=== PATIENT | female | born 1940 | race Caucasian/White ===

== ENCOUNTER → 2019-05-26 07:16 | Outpatient (CLI) | payer MEDICARE, OTHER, SELFPAY ==
--- NOTE | 2019-05-26 06:39 | CT_ITS ---
STUDY: CT BRAIN WITHOUT CONTRAST REASON FOR EXAM: Female, 79 years old. Every loss. Stages history of viral encephalitis RADIATION DOSAGE (If Supplied By Facility): CTDIvol = ( 44.99 ) mGy, DLP = ( 745.49 ) mGycm TECHNIQUE: Transaxial CT imaging of the brain was performed without administration of intravenous contrast material. Individualized dose optimization techniques were used for this CT. COMPARISON: No relevant priors. FINDINGS: Normal soft tissue structures. Normal calvarium. There is mild cerebral atrophy with widening of the extra-axial spaces and ventricular dilatation. There are areas of decreased attenuation within the white matter tracts of the supratentorial brain, consistent with microvascular disease changes. Normal basal ganglia and thalami. Normal brainstem. There is mild cerebellar atrophy. There is no intracranial hemorrhage. There are no findings of an acute ischemic infarction. Normal visualized paranasal sinuses. CT/Brain/Head without Contrast IMPRESSION: Mild atrophy. No evidence of acute hemorrhage infarct or edema. Electronically Signed: Nimisha Guevara MD at 18:00 EDT Tel , Service support ,
[2019-05-26 09:20] LABS: Rheumatoid Factor < 10.0 IU/mL (<15); Thyroid Stim Hormone (TSH) 5.38 uIU/mL (0.358-3.74)
[2019-05-29 10:22] LABS: Vitamin B12 449 pg/mL (211-911)
[2019-05-30 11:54] LABS: ANTINUCLEAR ANTIBODIES DIRECT Negative (Negative)
[2019-05-31 16:08] LABS: PROEL- A/G Ratio 1.2 (0.7-1.7); PROEL- Albumin 3.7 g/dL (2.9-4.4); PROEL- Alpha-1 Globulin 0.2 g/dL (0.0-0.4); PROEL- Alpha-2 Globulin 0.8 g/dL (0.4-1.0); PROEL- Beta Globulin 1.1 g/dL (0.7-1.3); PROEL- Gamma Globulin 1.1 g/dL (0.4-1.8); PROEL- Globulin, Total 3.2 g/dL (2.2-3.9); PROEL- TOTAL PROTEIN 6.9 g/dL (6.0-8.5); PROELU- Albumin, Urine 38.8 % (.); PROELU- Alpha-2-Globulin,Ur 14.7 % (.); PROELU- Beta Globulin, Ur 27.5 % (.); PROELU- Gamma Globulin, Ur 16.9 % (.); Total Protein, Ur 43.6 mg/dL (Not Estab.)
== END ==
PROVIDERS: Referring Provider Registered Nurse; Visit Provider Registered Nurse
DX: R20.2 Paresthesia of skin (principal); R73.9 Hyperglycemia, unspecified; R41.3 Other amnesia
CPT/HCPCS: 36415; 70450; 82607; 82746; 84165; 84166; 84443; 86038; 86431

== ENCOUNTER → 2021-06-05 12:19 | Outpatient (CLI) | payer MEDICARE, OTHER, SELFPAY ==
[2021-06-05 15:39] LABS: Absolute Lymphocyte Count 1.19 X10^3/uL (0.83-4.51); Absolute Neutrophil Count 3.5 X10^3/uL (2.0-7.7); Basophil% 1.9 % (0-1); Eosinophil# 0.15 X10^3/uL; Eosinophils% 2.8 % (0-5); Hematocrit 40.2 % (37-47); Hemoglobin 13.4 g/dL (12.0-15.0); Lymphocyte # 1.19 X10^3/ul (0.83-4.51); Lymphocyte % 22.2 % (19-41); Mean Corp Hgb Conc 33.3 g/dL (32-36); Mean Corpuscular Hgb 31.2 pg (27.0-32.0); Mean Corpuscular Volume 93.5 fL (81-99); Mean Platelet Vol. 9.9 fl (6.2-12.0); Monocyte# 0.41 X10^3/uL; Monocyte% 7.7 % (0-10); NRBC Flagged by Analyzer 0 % (0-5); Neutrophil # 3.47 X10^3/uL (2.7-7.7); Neutrophil % 64.8 % (47-70); Platelet Count 215 K/mm3 (150-450); RBC Distribution Width CV 12.4 % (11.6-14.6); RBC Distribution Width SD 43.1 fl (35.1-43.9); White Blood Count 5.4 K/mm3 (4.4-11.0)
[2021-06-05 16:20] LABS: Hemoglobin A1c 5.6 % (3.8-5.6)
[2021-06-05 17:01] LABS: ALB/GLOB Ratio 0.9 RATIO (0.9-2.4); AST(SGOT) 20 U/L (15-37); Alanine Aminotransfer ALT/SGPT 26 U/L (13-56); Albumin, Serum 3.4 g/dL (3.2-5.0); Alkaline Phosphatase 72 U/L (45-117); Anion Gap 3 (5-15); BUN 16 mg/dL (7-18); BUN/Creat Ratio 24.3 RATIO (10-20); CPK Total, Creatine Kinase 96 U/L (26-192); Calcium,Total 9.2 mg/dL (8.5-10.1); Chloride 103 mmol/L (98-107); Cholesterol 184 mg/dL (200); Creatinine, Serum 0.66 mg/dL (0.55-1.02); EST Glomerular Filtration Rate 92 mL/min (>60); Est Glom Filt Rate - Afr Amer 111 mL/min (>60); Ferritin 55 ng/mL (8-252); Globulin 3.8 g/dL (2.2-4.2); Glucose 81 mg/dL (74-106); High Density Lipoprotein 40 mg/dL; Magnesium 1.7 mg/dL (1.6-2.6); Potassium 3.6 mmol/L (3.5-5.1); Protein, Total 7.2 g/dL (6.4-8.2); Sodium Level 140 mmol/L (136-145); T4 Free Direct 1.19 ng/dL (0.76-1.46); Triglycerides 143 mg/dL; Very Low Density Lipoprotein 29 mg/dL (5-40)
[2021-06-05 17:12] LABS: Vitamin D,25 Hydroxy 54.8 ng/mL
== END ==
PROVIDERS: PCP Family Medicine; Referring Provider Family Medicine; Visit Provider Family Medicine
DX: E55.9 Vitamin D deficiency, unspecified (principal); I10 Essential (primary) hypertension; R73.02 Impaired glucose tolerance (oral); E04.1 Nontoxic single thyroid nodule; R25.2 Cramp and spasm
CPT/HCPCS: 36415; 80053; 80061; 82306; 82550; 82728; 83036; 83735; 84439; 84443; 85025

== ENCOUNTER → 2021-06-16 12:03 | Outpatient (CLI) | payer MEDICARE, OTHER, SELFPAY ==
--- NOTE | 2021-06-16 12:07 | US_ITS ---
STUDY: THYROID ULTRASOUND REASON FOR EXAM: Female, 81 years old. NODULE TECHNIQUE: Ultrasound evaluation of the thyroid was performed with real-time and static pineda-scale imaging. COMPARISON: None. FINDINGS: RIGHT LOBE: The right lobe of the thyroid gland measures 5 cm x 1.4 cm x 2.2 cm. There is a homogeneous echotexture. There is a 3 mm x 3 mm x 2 mm hypoechoic solid nodule in the mid anterior aspect of the midpole. LEFT LOBE: The left lobe of the thyroid gland measures 3.8 cm x 1.4 cm x 1.4 cm. There is a homogeneous echotexture. There are no demonstrated solid, cystic or complex lesions. ISTHMUS: The isthmus measures 4 mm. The regional lymph nodes are normal. US/Thyroid IMPRESSION: 3 mm x 3 mm x 2 mm hypoechoic solid nodule in the mid anterior aspect of the midpole of the right lobe of the thyroid. Electronically Signed: Pepito De Leon MD at 15:08 EDT , Service support ,
== END ==
PROVIDERS: PCP Family Medicine; Referring Provider Family Medicine; Visit Provider Family Medicine
DX: E04.1 Nontoxic single thyroid nodule (principal)
CPT/HCPCS: 76536

== ENCOUNTER 2021-11-03 11:34 | Outpatient (CLI) | payer MEDICARE, OTHER, SELFPAY ==
[2021-11-03 11:44] LABS: Mucous, Urine 0 SEEN /hpf (<or=2+)
[2021-11-03 15:24] LABS: Color, Urine Yellow (Yellow); Glucose, Dipstick Normal (Normal); Ketone-Dipstick Negative (Negative); Leukocyte Esterase-Dipstick Negative /ul (Negative); Nitrite-Dipstick Negative (Negative); Occult Blood-Urine Negative /ul (Negative); Protein-Dipstick Negative (Negative); Urine Bilirubin Dipstick Negative (Negative); Urine Clarity Clear (Clear); Urine Urobilinogen Normal (Normal)
[2021-11-03 15:33] LABS: Amorphous Sediment 1+; Bacteria 1+ /hpf (None Seen); Red Blood Cells-Urine 0-5 SEEN /hpf (0-5); Squamous Epithelial Cells - UA 0-5 SEEN /hpf (5-10); White Blood Cells 0-5 SEEN /hpf (0-5)
[2021-11-03 15:45] LABS: ALB/GLOB Ratio 0.9 RATIO (0.9-2.4); AST(SGOT) 16 U/L (15-37); Alanine Aminotransfer ALT/SGPT 26 U/L (13-56); Albumin, Serum 3.5 g/dL (3.2-5.0); Alkaline Phosphatase 82 U/L (45-117); Anion Gap 6 (5-15); BUN 18 mg/dL (7-18); BUN/Creat Ratio 23.6 RATIO (10-20); Calcium,Total 9.1 mg/dL (8.5-10.1); Chloride 103 mmol/L (98-107); Creatinine, Serum 0.76 mg/dL (0.55-1.02); EST Glomerular Filtration Rate 77 mL/min (>60); Est Glom Filt Rate - Afr Amer 94 mL/min (>60); Globulin 3.7 g/dL (2.2-4.2); Glucose 105 mg/dL (74-106); Potassium 3.4 mmol/L (3.5-5.1); Protein, Total 7.2 g/dL (6.4-8.2); Sodium Level 142 mmol/L (136-145)
[2021-11-03 15:49] LABS: Hemoglobin A1c 5.6 % (3.8-5.6)
[2021-11-03 16:45] LABS: Vitamin D,25 Hydroxy 49.5 ng/mL
[2021-11-03 17:41] LABS: Absolute Neutrophil Count 2.8 X10^3/uL (2.0-7.7); Basophil# 0.09 X10^3/uL; Eosinophil# 0.12 X10^3/uL; Eosinophils% 2.6 % (0-5); Hematocrit 40.1 % (37-47); Hemoglobin 13.8 g/dL (12.0-15.0); Lymphocyte % 22.1 % (19-41); Mean Corp Hgb Conc 34.4 g/dL (32-36); Mean Corpuscular Hgb 31.4 pg (27.0-32.0); Mean Corpuscular Volume 91.3 fL (81-99); Mean Platelet Vol. 10.5 fl (6.2-12.0); Monocyte# 0.47 X10^3/uL; Monocyte% 10.4 % (0-10); NRBC Flagged by Analyzer 0 % (0-5); Neutrophil # 2.82 X10^3/uL (2.7-7.7); Neutrophil % 62.2 % (47-70); Platelet Count 189 K/mm3 (150-450); RBC Distribution Width CV 12.1 % (11.6-14.6); RBC Distribution Width SD 40.3 fl (35.1-43.9); Red Blood Count 4.39 M/mm3 (4.2-5.4); White Blood Count 4.5 K/mm3 (4.4-11.0)
== END 2021-11-03 23:59 | disposition home or self-care (01) ==
LOC: MFPLAB 11:38
PROVIDERS: PCP Family Medicine; Referring Provider Family Medicine; Visit Provider Family Medicine
DX: E55.9 Vitamin D deficiency, unspecified (principal); I10 Essential (primary) hypertension; R73.02 Impaired glucose tolerance (oral)
CPT/HCPCS: 36415; 80053; 81001; 82306; 83036; 85025

== ENCOUNTER 2021-12-03 11:58 | Outpatient (CLI) | payer MEDICARE, OTHER, SELFPAY ==
--- NOTE | 2021-12-03 17:01 | STRESSREP ---
Stress Test Report Exercise myocardial perfusion stress test. 81-year-old lady with a history of chest pain. Stress protocol: Resting EKG demonstrates normal sinus rhythm with a rate of 84 bpm normal intervals are noted resting blood pressure is 128/82 mmHg. The patient exercised according to the regular Yovanny protocol for a total duration of 7 minutes. Patient completed 1 minute into stage III of the Yovanny protocol. The maximum heart rate attained was 164 bpm which was 117% of max impact at heart rate the maximum workload was 10.1 metabolic equivalents. At rest there were no ST or T wave changes noted to suggest ischemia and at peak exercise upsloping ST changes were noted with did not meet the criteria for ischemia. No clinical angina was noted the test was terminated due to the target heart rate being achieved. There was some shortness of breath noted with exertion but no chest pain was noted. The rate-pressure product was 23,600. The peak blood pressure was 182/64 mmHg. Conclusion: Exercise stress test with no EKG criteria for ischemia at a high workload. Good functional aerobic capacity.
== END 2021-12-03 23:59 | disposition home or self-care (01) ==
LOC: CVS 12:00
PROVIDERS: PCP Family Medicine; Referring Provider Family Medicine; Visit Provider Family Medicine
DX: R07.9 Chest pain, unspecified (principal)
CPT/HCPCS: 93017

== ENCOUNTER 2021-12-14 14:50 | Outpatient (CLI) | payer MEDICARE, OTHER, SELFPAY ==
[2021-12-14 18:13] LABS: Anion Gap 3 (5-15); BUN 14 mg/dL (7-18); BUN/Creat Ratio 21.1 RATIO (10-20); Calcium,Total 9.4 mg/dL (8.5-10.1); Chloride 98 mmol/L (98-107); Creatinine, Serum 0.66 mg/dL (0.55-1.02); EST Glomerular Filtration Rate 91 mL/min (>60); Est Glom Filt Rate - Afr Amer 110 mL/min (>60); Glucose 101 mg/dL (74-106); Potassium 3.5 mmol/L (3.5-5.1); Sodium Level 136 mmol/L (136-145)
== END 2021-12-14 23:59 | disposition home or self-care (01) ==
LOC: MFPLAB 14:53
PROVIDERS: PCP Family Medicine; Referring Provider Family Medicine; Visit Provider Family Medicine
DX: I10 Essential (primary) hypertension (principal)
CPT/HCPCS: 36415; 80048

== ENCOUNTER 2021-12-23 15:14 | Outpatient (CLI) | payer MEDICARE, OTHER, SELFPAY ==
[2021-12-23 17:47] LABS: Anion Gap 4 (5-15); BUN 16 mg/dL (7-18); BUN/Creat Ratio 21.5 RATIO (10-20); Calcium,Total 9.7 mg/dL (8.5-10.1); Chloride 103 mmol/L (98-107); Creatinine, Serum 0.74 mg/dL (0.55-1.02); EST Glomerular Filtration Rate 80 mL/min (>60); Est Glom Filt Rate - Afr Amer 96 mL/min (>60); Glucose 106 mg/dL (74-106); Potassium 3.7 mmol/L (3.5-5.1); Sodium Level 138 mmol/L (136-145)
== END 2021-12-23 23:59 | disposition home or self-care (01) ==
LOC: MFPLAB 15:18
PROVIDERS: PCP Family Medicine; Referring Provider Family Medicine; Visit Provider Family Medicine
DX: I10 Essential (primary) hypertension (principal)
CPT/HCPCS: 36415; 80048

== ENCOUNTER 2022-01-06 14:55 | Outpatient (CLI) | payer MEDICARE, OTHER, SELFPAY ==
[2022-01-06 18:09] LABS: Anion Gap 6 (5-15); BUN 12 mg/dL (7-18); BUN/Creat Ratio 17.8 RATIO (10-20); Chloride 103 mmol/L (98-107); Creatinine, Serum 0.68 mg/dL (0.55-1.02); EST Glomerular Filtration Rate 89 mL/min (>60); Est Glom Filt Rate - Afr Amer 108 mL/min (>60); Glucose 94 mg/dL (74-106); Potassium 3.8 mmol/L (3.5-5.1); Sodium Level 140 mmol/L (136-145)
== END 2022-01-06 23:59 | disposition home or self-care (01) ==
LOC: MFPLAB 14:59
PROVIDERS: PCP Family Medicine; Referring Provider Family Medicine; Visit Provider Family Medicine
DX: E87.6 Hypokalemia (principal)
CPT/HCPCS: 36415; 80048

== ENCOUNTER → 2022-01-21 | Outpatient (CLI) | payer MEDICARE, OTHER, SELFPAY | END | disposition home or self-care (01) | LOC: MFPLAB 14:44 | PROVIDERS: PCP Family Medicine; Referring Provider Family Medicine; Visit Provider Family Medicine | DX: Z00.00 Encounter for general adult medical examination without abnormal findings (principal) ==

== ENCOUNTER → 2022-04-02 | Outpatient (CLI) | payer MEDICARE, OTHER, SELFPAY ==
[2022-04-02 14:55] LABS: Bacteria 0 SEEN /hpf (None Seen); Mucous, Urine 0 SEEN /hpf (<or=2+); Squamous Epithelial Cells - UA 0 SEEN /hpf (5-10)
[2022-04-02 17:34] LABS: Basophil# 0.11 X10^3/uL; Basophil% 1.8 % (0-1); Eosinophil# 0.34 X10^3/uL; Eosinophils% 5.5 % (0-5); Hematocrit 40.3 % (37-47); Hemoglobin 13.4 g/dL (12.0-15.0); Lymphocyte % 19.3 % (19-41); Mean Corp Hgb Conc 33.3 g/dL (32-36); Mean Corpuscular Hgb 30.2 pg (27.0-32.0); Monocyte# 0.52 X10^3/uL; Monocyte% 8.4 % (0-10); NRBC Flagged by Analyzer 0 % (0-5); Neutrophil % 64.2 % (47-70); Platelet Count 189 K/mm3 (150-450); RBC Distribution Width CV 12.9 % (11.6-14.6); RBC Distribution Width SD 42.7 fl (35.1-43.9); Red Blood Count 4.43 M/mm3 (4.2-5.4); White Blood Count 6.2 K/mm3 (4.4-11.0)
[2022-04-02 17:34] LABS: Color, Urine Yellow (Yellow); Glucose, Dipstick Normal (Normal); Ketone-Dipstick Negative (Negative); Leukocyte Esterase-Dipstick 500 /ul (Negative); Nitrite-Dipstick Negative (Negative); Occult Blood-Urine 25 /ul (Negative); Protein-Dipstick 15 mg/dl (Negative); Urine Bilirubin Dipstick Negative (Negative); Urine Clarity Sl. Cloudy (Clear); Urine Urobilinogen Normal (Normal)
[2022-04-02 17:45] LABS: Red Blood Cells-Urine 0-5 SEEN /hpf (0-5); White Blood Cells 5-10 SEEN /hpf (0-5)
[2022-04-02 17:48] LABS: ALB/GLOB Ratio 0.9 RATIO (0.9-2.4); AST(SGOT) 21 U/L (15-37); Alanine Aminotransfer ALT/SGPT 24 U/L (13-56); Albumin, Serum 3.6 g/dL (3.2-5.0); Alkaline Phosphatase 97 U/L (45-117); Anion Gap 5 (5-15); BUN 16 mg/dL (7-18); BUN/Creat Ratio 23.5 RATIO (10-20); Calcium,Total 9.5 mg/dL (8.5-10.1); Chloride 101 mmol/L (98-107); Cholesterol 200 mg/dL (200); Creatinine, Serum 0.68 mg/dL (0.55-1.02); EST Glomerular Filtration Rate 88 mL/min (>60); Est Glom Filt Rate - Afr Amer 106 mL/min (>60); Globulin 4.1 g/dL (2.2-4.2); Glucose 93 mg/dL (74-106); High Density Lipoprotein 36 mg/dL; Potassium 3.4 mmol/L (3.5-5.1); Protein, Total 7.7 g/dL (6.4-8.2); Sodium Level 139 mmol/L (136-145); Triglycerides 159 mg/dL; Very Low Density Lipoprotein 32 mg/dL (5-40)
[2022-04-02 17:57] LABS: Hemoglobin A1c 5.8 % (3.8-5.6)
== END | disposition home or self-care (01) ==
LOC: MFPLAB 14:44
PROVIDERS: PCP Family Medicine; Visit Provider Family Medicine
DX: I10 Essential (primary) hypertension (principal); E55.9 Vitamin D deficiency, unspecified; R73.02 Impaired glucose tolerance (oral)
CPT/HCPCS: 36415; 80053; 80061; 81001; 82306; 83036; 85025

== ENCOUNTER → 2022-04-07 | Outpatient (CLI) | payer MEDICARE, OTHER, SELFPAY | END | disposition home or self-care (01) | PROVIDERS: PCP Family Medicine; Visit Provider Family Medicine | DX: R82.81 Pyuria (principal) | CPT/HCPCS: 87086; 87088; 87186 ==

== ENCOUNTER → 2022-04-29 | Outpatient (CLI) | payer MEDICARE, OTHER, SELFPAY ==
--- NOTE | 2022-04-29 08:38 | BD_ITS ---
STUDY: DUAL ENERGY X-RAY ABSORPTIOMETRY / DXA REASON FOR EXAM: Female, 82 years old. 733.00OsteoporosisBONE DENSITY REASON FOR EXAM TECHNIQUE: Bone Mineral Density (BMD) measurements of lumbar spine and bilateral hips were obtained. COMPARISON: None. FINDINGS: Lumbar Spine (L1-L4): g/cm2 (0.810) / T-score (-1.9) / Z-score (0.8) Findings are suggestive of osteopenia with a moderate fracture risk. Left Femur Total: g/cm2 (0.870) / T-score (-0.6) / Z-score (1.5) Left Femoral Neck: g/cm2 (0.669) / T-score (-1.6) / Z-score (0.7) Right Femur Total: g/cm2 (0.864) / T-score (-0.6) / Z-score (1.5) Right Femoral Neck: g/cm2 (0.681) / T-score (-1.5) / Z-score (0.8) BD/Dexa Bone Density Study IMPRESSION: The patient is considered osteopenic as outlined below according to World [place] Organization (WHO) criteria with a moderate fracture risk. Reference Information: The T-score is the number of standard deviations above or below the standard which is normal for young adults at their peak bone mineral density. The World Health Organization (WHO) interprets the T-scores as follows: Above -1 Normal bone density Between -1 and -2.5 Osteopenia Equal to / or below -2.5 Osteoporosis As a practical clinical guideline, osteopenia may be graded as follows: Mild -1 through -1.5 Moderate -1.6 through -2.0 Severe -2.1 through -2.4 The Z-score is the number of standard deviations above or below age-matched controls. A Z-score of less than -1.5 would be considered abnormal. References: 1. NIH Osteoporosis and Related Bone Diseases www osteo.org 2. International Society for Clinical Densitometry www iscd.org 3. National Osteoporosis Foundation www nof.org Electronically Signed: Pepito De Leon MD at 13:42 EDT ,
== END | disposition home or self-care (01) ==
LOC: OPBD 08:36
PROVIDERS: PCP Family Medicine; Referring Provider Family Medicine; Visit Provider Family Medicine
DX: M81.0 Age-related osteoporosis without current pathological fracture (principal)
CPT/HCPCS: 77080

== ENCOUNTER → 2022-07-05 | Outpatient (CLI) | payer MEDICARE, OTHER, SELFPAY ==
[2022-07-05 13:48] LABS: Bacteria 0 SEEN /hpf (None Seen); Mucous, Urine 0 SEEN /hpf (<or=2+); Red Blood Cells-Urine 0 SEEN /hpf (0-5); Squamous Epithelial Cells - UA 0 SEEN /hpf (5-10); White Blood Cells 0 SEEN /hpf (0-5)
[2022-07-05 15:40] LABS: Color, Urine Straw (Yellow); Glucose, Dipstick Normal (Normal); Ketone-Dipstick Negative (Negative); Leukocyte Esterase-Dipstick Negative /ul (Negative); Nitrite-Dipstick Negative (Negative); Occult Blood-Urine 10 /ul (Negative); Protein-Dipstick Negative (Negative); Specific Gravity, Urine 1.005 (1.002-1.030); Urine Bilirubin Dipstick Negative (Negative); Urine Clarity Clear (Clear); Urine Urobilinogen Normal (Normal)
[2022-07-05 15:43] LABS: Absolute Neutrophil Count 2.7 X10^3/uL (2.0-7.7); Basophil# 0.08 X10^3/uL; Basophil% 1.9 % (0-1); Eosinophils% 2.3 % (0-5); Hematocrit 43.3 % (37-47); Hemoglobin 14.1 g/dL (12.0-15.0); Lymphocyte % 23.5 % (19-41); Mean Corp Hgb Conc 32.6 g/dL (32-36); Mean Corpuscular Hgb 30.7 pg (27.0-32.0); Mean Corpuscular Volume 94.1 fL (81-99); Mean Platelet Vol. 10.1 fl (6.2-12.0); Monocyte# 0.37 X10^3/uL; Monocyte% 8.7 % (0-10); NRBC Flagged by Analyzer 0 % (0-5); Neutrophil # 2.69 X10^3/uL (2.7-7.7); Neutrophil % 63.1 % (47-70); Platelet Count 180 K/mm3 (150-450); RBC Distribution Width CV 12.8 % (11.6-14.6); RBC Distribution Width SD 44.3 fl (35.1-43.9); White Blood Count 4.3 K/mm3 (4.4-11.0)
[2022-07-05 16:05] LABS: Vitamin D,25 Hydroxy 37.4 ng/mL
[2022-07-05 16:16] LABS: Transitional Epithelial - Ur 0-5 SEEN /hpf (0-5)
[2022-07-05 16:48] LABS: ALB/GLOB Ratio 0.8 RATIO (0.9-2.4); AST(SGOT) 22 U/L (15-37); Alanine Aminotransfer ALT/SGPT 26 U/L (13-56); Albumin, Serum 3.5 g/dL (3.2-5.0); Alkaline Phosphatase 99 U/L (45-117); Anion Gap 8 (5-15); BUN 12 mg/dL (7-18); BUN/Creat Ratio 14.7 RATIO (10-20); Calcium,Total 9.7 mg/dL (8.5-10.1); Chloride 104 mmol/L (98-107); Creatinine, Serum 0.82 mg/dL (0.55-1.02); EST Glomerular Filtration Rate 71 mL/min (>60); Est Glom Filt Rate - Afr Amer 86 mL/min (>60); Globulin 4.2 g/dL (2.2-4.2); Glucose 114 mg/dL (74-106); Potassium 3.5 mmol/L (3.5-5.1); Protein, Total 7.7 g/dL (6.4-8.2); Sodium Level 142 mmol/L (136-145)
[2022-07-05 16:54] LABS: Hemoglobin A1c 5.6 % (3.8-5.6)
== END | disposition home or self-care (01) ==
LOC: MFPLAB 11:45
PROVIDERS: PCP Family Medicine; Visit Provider Family Medicine
DX: I10 Essential (primary) hypertension (principal); E55.9 Vitamin D deficiency, unspecified; R73.02 Impaired glucose tolerance (oral)
CPT/HCPCS: 36415; 80053; 81001; 82306; 83036; 85025

== ENCOUNTER → 2022-11-12 | Outpatient (CLI) | payer MEDICARE, OTHER, SELFPAY ==
[2022-11-12 14:17] LABS: Mucous, Urine 0 SEEN /hpf (<or=2+); Red Blood Cells-Urine 0 SEEN /hpf (0-5)
[2022-11-12 18:11] LABS: Absolute Lymphocyte Count 1.29 X10^3/uL (0.83-4.51); Absolute Neutrophil Count 3.5 X10^3/uL (2.0-7.7); Basophil% 1.8 % (0-1); Eosinophil# 0.16 X10^3/uL; Eosinophils% 2.8 % (0-5); Hematocrit 42.7 % (37-47); Hemoglobin 13.7 g/dL (12.0-15.0); Lymphocyte # 1.29 X10^3/ul (0.83-4.51); Mean Corp Hgb Conc 32.1 g/dL (32-36); Mean Corpuscular Hgb 30.4 pg (27.0-32.0); Mean Corpuscular Volume 94.7 fL (81-99); Mean Platelet Vol. 10.3 fl (6.2-12.0); Monocyte# 0.55 X10^3/uL; Monocyte% 9.8 % (0-10); NRBC Flagged by Analyzer 0 % (0-5); Neutrophil # 3.48 X10^3/uL (2.7-7.7); Neutrophil % 61.9 % (47-70); Platelet Count 192 K/mm3 (150-450); RBC Distribution Width CV 12.9 % (11.6-14.6); RBC Distribution Width SD 44.4 fl (35.1-43.9); Red Blood Count 4.51 M/mm3 (4.2-5.4); White Blood Count 5.6 K/mm3 (4.4-11.0)
[2022-11-12 18:16] LABS: Color, Urine Yellow (Yellow); Glucose, Dipstick Normal (Normal); Ketone-Dipstick Negative (Negative); Leukocyte Esterase-Dipstick 100 /ul (Negative); Nitrite-Dipstick Negative (Negative); Occult Blood-Urine 10 /ul (Negative); Protein-Dipstick Negative (Negative); Specific Gravity, Urine 1.005 (1.002-1.030); Urine Bilirubin Dipstick Negative (Negative); Urine Clarity Clear (Clear); Urine Urobilinogen Normal (Normal)
[2022-11-12 18:33] LABS: Bacteria RARE /hpf (None Seen); Squamous Epithelial Cells - UA 0-5 SEEN /hpf (5-10); White Blood Cells 0-5 SEEN /hpf (0-5)
[2022-11-12 18:40] LABS: Vitamin B12 283 pg/mL (211-911); Vitamin D,25 Hydroxy 47.4 ng/mL
[2022-11-12 18:44] LABS: Hemoglobin A1c 5.8 % (3.8-5.6)
[2022-11-12 18:47] LABS: ALB/GLOB Ratio 0.9 RATIO (0.9-2.4); AST(SGOT) 20 U/L (15-37); Alanine Aminotransfer ALT/SGPT 21 U/L (13-56); Albumin, Serum 3.6 g/dL (3.2-5.0); Alkaline Phosphatase 89 U/L (45-117); Anion Gap 7 (5-15); BUN 11 mg/dL (7-18); Chloride 102 mmol/L (98-107); Cholesterol 200 mg/dL (200); Creatinine, Serum 0.73 mg/dL (0.55-1.02); EST Glomerular Filtration Rate 81 mL/min (>60); Est Glom Filt Rate - Afr Amer 98 mL/min (>60); Globulin 3.9 g/dL (2.2-4.2); Glucose 62 mg/dL (74-106); High Density Lipoprotein 37 mg/dL; Potassium 3.3 mmol/L (3.5-5.1); Protein, Total 7.5 g/dL (6.4-8.2); Sodium Level 141 mmol/L (136-145); Thyroid Stim Hormone (TSH) 1.79 uIU/mL (0.358-3.74); Triglycerides 217 mg/dL; Very Low Density Lipoprotein 43 mg/dL (5-40)
== END | disposition home or self-care (01) ==
LOC: MFPLAB 14:07
PROVIDERS: PCP Family Medicine; Referring Provider Family Medicine; Visit Provider Family Medicine
DX: I10 Essential (primary) hypertension (principal); R73.02 Impaired glucose tolerance (oral); R41.3 Other amnesia; E55.9 Vitamin D deficiency, unspecified
CPT/HCPCS: 36415; 80053; 80061; 81001; 82306; 82607; 83036; 84443; 85025

== ENCOUNTER 2022-11-27 16:33 | Inpatient (IN) | payer MEDICARE, OTHER, SELFPAY ==
[2022-11-27] VITALS (7 sets, daily range): BP systolic 156–205; BP diastolic 79–123; PULSE 73–80; RESP 16–24; TEMP 36.3–36.8; O2SAT 94–98; BMI 28.4; BMI 29.4
--- NOTE | 2022-11-27 16:36 | EKG12_ITS ---
Test Reason : STROKE TEAM Blood Pressure : / mmHG Vent. Rate : 079 BPM Atrial Rate : 079 BPM P-R Int : 178 ms QRS Dur : 074 ms QT Int : 368 ms P-R-T Axes : 000 -10 017 degrees QTc Int : 421 ms Normal sinus rhythm Nonspecific ST and T wave abnormality Abnormal ECG Confirmed by OLYA LANDAVERDE, NANDO ([id number]), video tape editor MARYSOL IZAGUIRRE ([id number]) on 11/29/2022 2:34:39 PM Referred By: Confirmed By:NANDO DOBSON MD
--- NOTE | 2022-11-27 16:36 | CT_ITS ---
We are attempting to reach an attending provider to discuss findings. An addendum with communication details will be sent when the communication is complete. INDICATION: Neuro deficit, acute, stroke suspected EXAMINATION: CT BRAIN - CT Head Stroke Protocol W/O Contrast Injection TECHNIQUE: Multiple axial images were obtained of the head without intravenous contrast. A radiation dose optimization technique was used for this scan. IV Contrast dosage and agent: None. COMPARISON: FINDINGS: BRAIN PARENCHYMA: No intra- or extra-axial hemorrhage. No evidence of acute infarct. No intracranial mass or mass effect. There are periventricular white matter microangiopathic ischemic changes. Posterior fossa structures are unremarkable. CSF SPACES: Appropriate for age. No hydrocephalus. Basal cisterns are patent. CALVARIUM, SKULL BASE, PARANASAL SINUSES AND MASTOID AIR CELLS: Clear. No discrete lytic or blastic abnormalities. ORBITS: Both globes, extraocular muscles, optic nerves and retrobulbar fat appear unremarkable. CT/STROKE Brain/Head without Cont IMPRESSION: Age-related changes. Electronically Signed: Paul Lester DO at 17:04 EST Reading Location ID and State: [facility] / [place] Tel [phone], Service support ,
--- NOTE | 2022-11-27 16:37 | CT_ITS ---
We are attempting to reach an attending provider to discuss findings. An addendum with communication details will be sent when the communication is complete. INDICATION: Neuro deficit, acute, stroke suspected EXAMINATION: CT BRAIN WITH CONTRAST TECHNIQUE: Noncontrast axial images were obtained of the brain. Subsequently, routine carotid CT angiogram protocol was performed without and with IV contrast. In addition, images were obtained of the [place]. NASCET criteria using the distal ICAs for comparison were used for evaluation of stenoses. 3D reconstructions were reviewed. A radiation dose optimization technique was used for this scan. IV Contrast dosage and agent: COMPARISON: None. FINDINGS: --CT BRAIN: BRAIN PARENCHYMA: No intra- or extra-axial hemorrhage. No evidence of acute infarct. No intracranial mass or mass effect. There is preservation of the pineda/white matter interface. Posterior fossa structures are unremarkable. CSF SPACES: Appropriate for age. No hydrocephalus. Basal cisterns are patent. CALVARIUM, SKULL BASE, PARANASAL SINUSES AND MASTOID AIR CELLS: Clear. No discrete lytic or blastic abnormalities. ASPECTS Score for Acute Strokes: 10 --CTA NECK: AORTIC ARCH AND BRANCHES: Mildly calcified aortic arch. RIGHT CCA: No occlusion, significant stenosis or dissection. RIGHT ICA: No occlusion, significant stenosis or dissection. Focal calcification at the carotid bulb. LEFT CCA: No occlusion, significant stenosis or dissection. LEFT ICA: No occlusion, significant stenosis or dissection. Focal calcification at the carotid bulb. RIGHT VERTEBRAL ARTERY: Moderate stenosis at the proximal segment near the origin. LEFT VERTEBRAL ARTERY: No occlusion, significant stenosis or dissection. NECK SOFT TISSUES: Unremarkable. --CTA HEAD: --Anterior circulation: ICAs: No significant stenosis at the intracranial/visualized segments. ACAs: No significant stenosis at the visualized segments. ACOM: Present. MCAs: No significant stenosis at the visualized segments. --Posterior circulation: PCOMs: Patent left posterior communicating artery supplying the left posterior cerebral circulation. Nonvisualization of the right posterior commuting artery. director of social services: No significant stenosis of the right posterior cerebral artery. Nonvisualization of the left P1 segment likely a normal variation. BASILAR ARTERY: No significant stenosis. VERTEBRAL ARTERIES: No significant stenosis at the intradural/visualized segments. No evidence of intracranial aneurysm or vascular malformation. There is a right upper lobe 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 Focal atherosclerotic plaques at the carotid bulbs with no hemodynamically significant stenosis. Electronically Signed: Paul Lester DO at 17:22 EST ,
--- NOTE | 2022-11-27 16:38 | EDS_ITS ---
HPI History of Present Illness Chief Complaint: Stroke Alert Detail of Chief Complaint: Possible left facial droop and slurred speech Informant: patient and EMS Onset/Context/Timing Onset: Today and Hours Context: Sudden Onset Timing: Continuous Quality and Location: Positive for Left Facial Droop and Slurred Speech Onset: 1537. 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 Today was at an area store when they thought that she may have a left facial droop and difficulty with speech. This seems to have resolved. She denies any complaints. Prior similar symptoms: No Recent Illness/Hospitalization: No PFSH PFSH Home Medications aspirin 81 mg chewable tablet (Aspirin Childrens) 81 mg PO DAILY 11/27/22 [History Last Taken Unknown] atenolol 50 mg tablet 50 mg PO DAILY bp 11/27/22 [History Last Taken Unknown] calcium carbonate 600 mg-vitamin D3 5 mcg (200 unit) capsule (Calcium 600 + D(3)) 1 cap PO DAILY supplement 11/27/22 [History Last Taken Unknown] furosemide 20 mg tablet 20 mg PO DAILY 11/27/22 [History Last Taken Unknown] lisinopril 20 mg tablet 20 mg PO BID 11/27/22 [History Last Taken Unknown] Allergy/AdvReac Type Severity Reaction Status Date / Time amlodipine AdvReac Intermediate Other Verified 11/27/22 17:24 Social History Smoking Status: Never smoker ROS ROS ED ROS Narrative Denies recent illness. Review of Systems ROS Unobtainable: Denies due to encephalopathy Constitutional Constitutional ED: Denies fever(s) Eyes Eyes: Denies blurry vision ENT ENT ED: Denies ear pain Cardiovascular Cardiovascular: Denies chest pain Respiratory/Chest Respiratory/Chest: Denies cough or dyspnea Gastrointestinal Gastrointestinal: Denies abdominal pain Genitourinary Genitourinary ED: Denies dysuria or hematuria Musculoskeletal Musculoskeletal: Denies arthralgias Neurologic Neurologic: Denies headache(s) Psychiatric Psychiatric: Denies anxiety Endocrine Endocrinology: Denies polydipsia Hematologic/Lymphatic Hematologic/Lymphatic: Denies easy bleeding or easy bruising Allergic/Immunologic Allergic/Immunologic ED: Denies mouth swelling or urticaria EXAM Physical Exam Narrative Exam Narrative: 82-year-old female vital signs are pending. Met in the ambulance bay brought in by [facility]. Stroke team was previously called. H EENT exam. To light. Extra motions are intact. Normal speech. No facial droop. When she smiles both corners of her mouth go abnormally. Equally. Neck nontender no JVD. No lymphadenopathy. Lungs clear to auscultation bilaterally. Heart regular rhythm no murmur appreciated. Chest wall nontender. Abdomen soft nontender. Moving all 4 extremities. 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 Dorsi plantarflexion intact. There is no drift with raising her arms or legs. She is awake and alert. Answering questions and following commands. She has normal speech. NIH is 0. Const Vital Signs: 11/27/22 16:46 11/27/22 17:00 11/27/22 17:30 Temperature 97.3 F L Temperature Source Temporal Pulse Rate 80 79 79 Respiratory Rate 16 24 H 16 Blood Pressure 187/85 H 200/80 H 156/95 H Blood Pressure Mean 119 120 115 Pulse Ox 96 95 95 Oxygen Delivery Method Room Air Room Air Room Air 11/27/22 18:05 11/27/22 18:00 Temperature Temperature Source Pulse Rate 79 Respiratory Rate 16 Blood Pressure 205/102 H Blood Pressure Mean 136 Pulse Ox 97 Oxygen Delivery Method Room Air Room Air Positive well nourished and well developed; Negative for obese, cachectic, contractures or unkempt General Appearance ED: well developed and NAD; Negative for unkempt, cachectic or contractures Nutritional Appearance: Negative for cachectic or obese HEENT Reports moist mucous membranes; Denies dry mucous membranes atraumatic; Negative for trauma Nose: Negative for other Mouth ED: No dry mucous membranes Mouth: No dry mucous membranes Eyes PERRL and EOMs intact bilaterally General Eye ED: Negative for pale conjunctiva or scleral icterus Neck no lymphadenopathy, supple and no JVD General: Negative for tenderness Thyroid: Negative for other Chest Wall inspection of chest normal and palpation of chest normal Resp normal respiratory effort and clear to auscultation bilaterally Effort and Inspection: Negative for retractions Auscultation: Negative for rales, rhonchi or wheezes Cardio no murmurs Rate: regular rate Rhythm: regular rhythm Heart Sounds: Negative for S1 normal or S2 normal GI normal to inspection, nondistended, normoactive bowel sounds, soft to palpation, non-tender, non-distended and no masses Inspection: Negative for abdominal distention Auscultation: normoactive bowel sounds Palpation: Negative for tender or guarding Back/Spine no CVA tenderness General Back: Negative for CVA tenderness Cervical Spine: Negative for cervical spine tenderness Thoracic Spine / Upper Back: Negative for thoracic spinal tenderness Lumbar Spine / Lower Back: Negative for lumbar spinal tenderness Extremity normal to inspection General Extremety ED: Negative for deformity or edema General Extremity: Negative for deformity or edema Neuro oriented x3 and CN's II-XII intact bilaterally Sensorium / Orientation: alert, oriented to person, oriented to place and oriented to time; Negative for orientation impaired, confused, lethargic or stuporous Speech: speech normal Motor Exam: strength 5/5 throughout Psych mental status grossly normal Appearance: Negative for unkempt Attitude: No agitated Mood & Affect: Negative for depressed, anxious or tearful Skin no wounds General Skin Exam: Negative for jaundice Lesions: no lesions Rashes: no rashes Trauma: Negative for abrasion NIHSS NIHSS Initial: 1a Level of Consciousness: 0 1b LOC Questions (Score 2 if aphasic/stupor): 0 1c LOC Commands (Only score 1st attempt): 0 2 Best Gaze (If aphasic, use reflexive mvmts.): 0 3 Visual: 0 4 Facial Palsy: 0 5 Motor Arm Right (UN = amputation/fusion): 0 5 Motor Arm Left: 0 6 Motor Leg Right: 0 6 Motor Leg Left: 0 7 Limb ataxia (Only + if out of proportion): 0 8 Sensory (Aphasia/stupor=0 or 1, coma=2): 0 9 Best Language: 0 10 Dysarthria (mute, coma=2, intubated=UN): 0 11 Extinction and Inattention (only scored if +): 0 Total Score: 0 MDM MDM MDM Narrative Medical decision making narrative: 82-year-old brought in under stroke team. Reportedly may have had a left facial droop if she has that is now resolved. May have had slurred speech but again currently is resolved. Her NIH at this time at 4:35 PM is 0. She is awake alert. She is moving all 4 extremities. She has normal speech. She will undergo a stroke work-up. Currently I do not think she will be a candidate for clot busting medication. Repeat exam patient is doing well at 6:35 patient doing well. NIH is 0. I discussed all test results with the patient and her daughter. She will be admitted mated overnight as an observation to the hospitalist we have already discussed the patient's care with. Patient and family are comfortable with the plan. History & Record Review Discussion w/independent historian: EMS personnel and Patient Lab Data Attestation: I reviewed the patient's lab results. Lab results narrative: CBC unremarkable white count of 5.5. H&H of 13.7 and 41. Platelets 185. PT/INR PTT are normal. Electrolytes potassium is 2.9. Gap 6 normal BUN of 18 creatinine 0.9 glucose 114 troponin normal at 8. Labs: Laboratory Results - last 24 hr 11/27/22 11/27/22 11/27/22 16:25 16:25 16:25 WBC 5.5 RBC 4.48 Hgb 13.7 Hct 41.1 MCV 91.7 MCH 30.6 MCHC 33.3 RDW Std Deviation 42.9 RDW Coeff of Aurelio 12.8 Plt Count 185 MPV 10.2 Immature Gran % (Auto) 0.900 Neut % (Auto) 55.5 Lymph % (Auto) 27.1 Ogle % (Auto) 11.8 H Eos % (Auto) 2.9 Baso % (Auto) 1.8 H Absolute Neuts (auto) 3.1 Absolute Lymphs (auto) 1.50 Nucleated RBC % 0 PT 12.9 INR 1.0 APTT 33.3 Sodium 140 Potassium 2.9 L Chloride 99 Carbon Dioxide 35.0 H Anion Gap 6 BUN 18 Creatinine 0.91 Estim Creat Clear Calc 40.11 Est GFR (MDRD) Af Amer 76 Est GFR (MDRD) Non-Af 63 BUN/Creatinine Ratio 19.7 Glucose 114 H Calcium 9.2 Troponin I High Sens 8 Radiography Chest X-Ray - ED: 1 View, Read by ED Physician, Heart, Lungs, Mediastinum, Bony Structures, No Acute Disease and Chronic Changes Diagnostic Testing: Clinical Impression(s) from Imaging Studies Brain CT 11/27/22 16:36 IMPRESSION: Age-related changes. Electronically Signed: Paul Lester DO at 17:04 EST Reading Location ID and State: [facility] / [place] Tel [phone], Service support , ADDENDUM: 11/27/22 1730 IMPRESSION: Age-related changes. N.B. : The above Results were Read Back by Paul Lester DO to Brett Ge MD, and understanding confirmed on 11/27/2022 17:23:27 (ET). Electronically Signed: Paul Lester DO at 17:04 EST , Head/Neck CTA 11/27/22 16:37 IMPRESSION: Moderate stenosis at the proximal right vertebral artery. Focal atherosclerotic plaques at the carotid bulbs with no hemodynamically significant stenosis. 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 Focal atherosclerotic plaques at the carotid bulbs with no hemodynamically significant stenosis. N.B. : The above Results were Read Back by Paul Lester DO to Brett Ge MD, and understanding confirmed on 11/27/2022 17:23:32 (ET). Electronically Signed: Paul Lester DO at 17:22 EST , Chest x-ray, portable, single view interpreted by myself shows no acute abnormality. CAT scan of the brain and CTA of the head neck showed chronic age-related changes but no significant acute blockage. Rhythm Strip Rhythm Strip: Sinus Rhythm Rate: 79 Ectopy: None EKG Initial EKG: Attestation: I personally reviewed and interpreted this EKG as follows: Interpretation: Sinus Rhythm and No Acute Injury Pattern Comments: Normal sinus rhythm rate of 79 no acute signs of NM nor ischemia or dysrhythmia. Prior: Unchanged Differential Diagnosis Differential Diagnosis: Stroke versus TIA versus other etiologies. Why less likely: Patient is clinically improving I do not think this is going to end up being a stroke possibly a TIA. Versus other etiologies. Management Discussion w/another healthcare provider: Hospitalist, Sunglass Clip Attacher, Radiologist and Other (Stroke neurologist from [facility] Discharge Plan Triage Chief Complaint: Stroke Alert ED Provider: Omar Ge Dx/Rx/DC Orders Clinical Impression: Hypokalemia, Brain TIA Prescriptions: No Action lisinopril 20 mg tablet 20 mg PO BID Label Comments: TAKE 1 TABLET BY MOUTH TWICE A DAY aspirin [Aspirin Childrens] 81 mg tablet,chewable 81 mg PO DAILY Label Comments: once a day furosemide 20 mg tablet 20 mg PO DAILY Label Comments: TAKE 1 TABLET BY MOUTH EVERY DAY atenolol 50 mg tablet 50 mg PO DAILY Label Comments: TAKE 1 TABLET BY MOUTH EVERY DAY Calcium 600 + D(3) 600 mg-5 mcg (200 unit) Capsule 1 cap PO DAILY Primary Care Provider: Isai Hercules Referrals: Isai Hercules MD [Primary Care Provider] - Disposition Disposition: Acute Care Hospital [facility]
--- NOTE | 2022-11-27 17:30 | RAD_ITS ---
INDICATION: Neuro deficit, acute, stroke suspected EXAMINATION/TECHNIQUE: X-RAY - XR Chest 1 View COMPARISON: November 02, 2016 FINDINGS: LINES/DEVICES: None. LUNGS: No consolidation, edema or effusion. Interstitial prominence. Left basilar atelectasis. No pneumothorax. MEDIASTINUM AND CARDIOVASCULAR STRUCTURES: Cardiac silhouette not enlarged. Central airways and mediastinal contour are unremarkable. BONES AND SOFT TISSUES: Degenerative vertebral changes. RAD/Chest 1 View IMPRESSION: Interstitial prominence. Left basilar atelectasis. Electronically Signed: Paul Lester DO at 18:59 EST ,
[2022-11-27 17:34] LABS: Absolute Neutrophil Count 3.1 X10^3/uL (2.0-7.7); Basophil% 1.8 % (0-1); Eosinophil# 0.16 X10^3/uL; Eosinophils% 2.9 % (0-5); Hematocrit 41.1 % (37-47); Hemoglobin 13.7 g/dL (12.0-15.0); Lymphocyte % 27.1 % (19-41); Mean Corp Hgb Conc 33.3 g/dL (32-36); Mean Corpuscular Hgb 30.6 pg (27.0-32.0); Mean Corpuscular Volume 91.7 fL (81-99); Mean Platelet Vol. 10.2 fl (6.2-12.0); Monocyte# 0.65 X10^3/uL; Monocyte% 11.8 % (0-10); NRBC Flagged by Analyzer 0 % (0-5); Neutrophil # 3.07 X10^3/uL (2.7-7.7); Neutrophil % 55.5 % (47-70); Platelet Count 185 K/mm3 (150-450); RBC Distribution Width CV 12.8 % (11.6-14.6); RBC Distribution Width SD 42.9 fl (35.1-43.9); Red Blood Count 4.48 M/mm3 (4.2-5.4); White Blood Count 5.5 K/mm3 (4.4-11.0)
[2022-11-27 17:46] LABS: Prothrombin Time (Protime)PT. 12.9 SECONDS (11.7-14.9)
[2022-11-27 17:47] LABS: Partial Thromboplast Time 33.3 Seconds (24.1-36.2)
[2022-11-27 17:53] LABS: Anion Gap 6 (5-15); BUN 18 mg/dL (7-18); BUN/Creat Ratio 19.7 RATIO (10-20); Calcium,Total 9.2 mg/dL (8.5-10.1); Chloride 99 mmol/L (98-107); Creatinine, Serum 0.91 mg/dL (0.55-1.02); EST Glomerular Filtration Rate 63 mL/min (>60); Est Glom Filt Rate - Afr Amer 76 mL/min (>60); Estimated Creatinine Clearance 40.11 ml/min; Glucose 114 mg/dL (74-106); Potassium 2.9 mmol/L (3.5-5.1); Sodium Level 140 mmol/L (136-145); Troponin-I HS 8 pg/mL (3.0-54.0)
--- NOTE | 2022-11-27 19:42 | PCM.HP.STD ---
[facility] - General General Date of Admission: 11/27/22 Date of Service: 11/27/22 Chief Complaint: Left facial droop/left upper extremity paresthesias/dysarthria HPI Narrative EDWIN ERAZO, is a 82 F who presented to the emergency department at [facility] on 11/27/2022 with acute onset of left facial droop/dysarthria/left upper extremity paresthesias that started at approximately 1538 while she was shopping today. She had no associated symptoms including headache, chest pain, shortness of breath. 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 These seem to manifest more when she is tired or overworked. By the time she arrived the emergency department her symptoms had resolved. She has a history of hypertension and documented diabetes however she is not on any medication for this and her blood sugars were 114 on admission. At the time of my evaluation she was feeling fine but her blood pressure was elevated. Her daughter stated that she was due for some of her medications. Vital signs at presentation demonstrated temperature of 97.3, heart rate 80, blood pressure 187/85, respiratory rate 16, oxygen saturations 96% on room air. Her CBC is unremarkable. Her coags are normal. Her BMP shows an elevated serum bicarb at 35.0 which makes me question whether or not she has may be some underlying sleep apnea or contraction alkalosis and her potassium is 2.9. Of her brain only showed senescent changes. A CTA of her head and neck showed moderate stenosis at the right proximal vertebral artery with focal atherosclerotic plaques at the carotid bulb with no hemodynamically significant stenosis. EKG showed normal sinus rhythm with a first-degree heart block and no ST-T wave changes concerning for acute ischemia. Chest x-ray is unremarkable. [facility] Medical History Anxiety Depression Encephalitis HTN (hypertension) Insomnia Osteoporosis Uterine prolapse Home Medications aspirin 81 mg chewable tablet (Aspirin Childrens) 81 mg PO DAILY 11/27/22 [History Last Taken Unknown] atenolol 50 mg tablet 50 mg PO DAILY bp 11/27/22 [History Last Taken Unknown] calcium carbonate 600 mg-vitamin D3 5 mcg (200 unit) capsule (Calcium 600 + D(3)) 1 cap PO DAILY supplement 11/27/22 [History Last Taken Unknown] furosemide 20 mg tablet 20 mg PO DAILY 11/27/22 [History Last Taken Unknown] lisinopril 20 mg tablet 20 mg PO BID 11/27/22 [History Last Taken Unknown] Allergy/AdvReac Type Severity Reaction Status Date / Time amlodipine AdvReac Intermediate Other Verified 11/27/22 17:24 Family History (Updated 11/27/22 @ 19:[address] Violetta Meneses DO) Other Diabetes Hypertension no surgical history Social History (Updated 11/27/22 @ 19:[address] Violetta Meneses DO) Smoking Status: Never smoker alcohol intake: never substance use type: does not use ROS Constitutional Constitutional: Denies anorexia, change in weight, chills, fatigue, fever(s), malaise, night sweats, weakness or other Eyes Eyes: Denies blurry vision, change in eye color, change in vision, discharge from eye(s), double vision, erythema, eye pain, loss of vision or other ENT HEENT: Denies abnormal hearing, dysphagia, ear pain, epistaxis, headache(s), hearing loss, nasal congestion, nasal discharge, post nasal drip, sinus pressure, sore throat or other Cardiovascular Cardiovascular: Denies chest pain, claudication, dyspnea on exertion, edema, lightheadedness, orthopnea, palpitations, paroxysmal nocturnal dyspnea, rapid heart rate, syncope or other Respiratory/Chest Respiratory/Chest: Denies cough, dyspnea, excessive phlegm production, hemoptysis, productive cough, shortness of breath at rest, shortness of breath with exertion, wheezing or other Gastrointestinal Gastrointestinal: Denies abdominal pain, coffee ground emesis, constipation, diarrhea, dyspepsia, hematemesis, hematochezia, loose stools, melena, nausea, vomiting or other Genitourinary Genitourinary: Denies burning urination, difficulty urinating, dysuria, hematuria, nocturia, urinary frequency, urinary hesitancy, urinary incontinence, urinary urgency or other Musculoskeletal Musculoskeletal: Denies arthralgias, back pain, joint pain, joint stiffness, joint swelling, myalgias, neck pain or other Neurologic Neurologic: Reports abnormal speech, paresthesias, tingling and other Details: Left facial droop ; Denies abnormal gait, confusion, disequilibrium, dizziness, focal weakness, headache(s), numbness, seizure-like activity, seizures, syncope or tremor(s) Psychiatric Psychiatric: Denies anxiety, depression, homicidal ideation, suicidal ideation or other Endocrine Endocrinology: Denies change in body appearance, cold intolerance, excessive sweating, heat intolerance, polydipsia, polyuria or other Hematologic/Lymphatic Hematologic/Lymphatic: Denies anemia, easy bleeding, easy bruising, lymphadenopathy or other Allergic/Immunologic Allergic/Immunologic: Denies rhinitis, hives, eczemia, asthma or other Vital Signs Vital Signs Vital Signs: 11/27/22 16:46 11/27/22 17:00 11/27/22 17:30 Temperature 97.3 F L Temperature Source Temporal Pulse Rate 80 79 79 Respiratory Rate 16 24 H 16 Blood Pressure 187/85 H 200/80 H 156/95 H Blood Pressure Mean 119 120 115 Pulse Ox 96 95 95 Oxygen Delivery Method Room Air Room Air Room Air 11/27/22 18:05 11/27/22 18:00 11/27/22 18:30 Temperature Temperature Source Pulse Rate 79 73 Respiratory Rate 16 16 Blood Pressure 205/102 H 173/123 H Blood Pressure Mean 136 139 Pulse Ox 97 96 Oxygen Delivery Method Room Air Room Air Room Air 11/27/22 18:30 Temperature 98.3 F Temperature Source Temporal Pulse Rate 73 Respiratory Rate 16 Blood Pressure 173/123 H Blood Pressure Mean 139 Pulse Ox 96 Oxygen Delivery Method Room Air Weight Weight: 72.8 kg Body Mass Index (BMI) 28.4 Physical Exam Const alert, oriented x3, no apparent distress, healthy appearing and well nourished Constitutional Narrative: Overweight, elderly white female, sitting up in bed, daughter at bedside, appears comfortable nontoxic, per her daughter her speech is back to baseline, patient is very talkative General Appearance: cooperative HEENT normocephalic, head/scalp atraumatic, hearing grossly normal bilaterally and moist oral mucous membranes HEENT Narrative: Dentition is fair, Mallampati is 2, no thrush Eyes PERRL, EOMs intact bilaterally and conjunctivae normal Eyes Narrative: No scleral icterus Neck no lymphadenopathy, supple, no JVD and no carotid bruits Neck Narrative: Trachea midline, no thyroid in the Resp normal respiratory effort, no retractions, no use of accessory muscles and clear to auscultation bilaterally Auscultation: Negative for rales, rhonchi or wheezes Cardio regular rate, regular rhythm, S1 normal heart sound, S2 normal heart sound, no murmurs, no rub and no clicks; Negative for no gallops Cardio Narrative: S4 gallop is present GI normal to inspection, nondistended, normoactive bowel sounds, soft to palpation and non-tender Extremity no clubbing, cyanosis or edema Extremity Narrative: 2+ pedal pulses Skin no rashes or lesions noted, no wounds, skin turgor normal, no jaundice, no petechiae and no mottling Neuro oriented x3, CN's II-XII intact bilaterally, moves all extremities and no focal motor deficits Neuro Narrative: Reflexes are 2+ upper and lower extremities, no pronator drift, very mild generalized weakness proximal greater than distal Speech: speech normal Psych affect normal Mood & Affect: anxious Results Lab / Micro Data Result Diagrams: 11/27/22 16:25 11/27/22 16:25 Labs: Laboratory Results - last 24 hr 11/27/22 16:25: WBC 5.5, RBC 4.48, Hgb 13.7, Hct 41.1, MCV 91.7, MCH 30.6, MCHC 33.3, RDW Std Deviation 42.9, RDW Coeff of Aurelio 12.8, Plt Count 185, MPV 10.2, Immature Gran % (Auto) 0.900, Neut % (Auto) 55.5, Lymph % (Auto) 27.1, Roane % (Auto) 11.8 H, Eos % (Auto) 2.9, Baso % (Auto) 1.8 H, Absolute Neuts (auto) 3.1, Absolute Lymphs (auto) 1.50, Nucleated RBC % 0 11/27/22 16:25: PT 12.9, INR 1.0, APTT 33.3 11/27/22 16:25: Sodium 140, Potassium 2.9 L, Chloride 99, Carbon Dioxide 35.0 H, Anion Gap 6, BUN 18, Creatinine 0.91, Estim Creat Clear Calc 40.11, Est GFR (MDRD) Af Amer 76, Est GFR (MDRD) Non-Af 63, BUN/Creatinine Ratio 19.7, Glucose 114 H, Calcium 9.2, Troponin I High Sens 8 Rhythm Strip Rhythm Strip: Sinus Rhythm Rate: 79 Ectopy: None Radiology Impression Brain CT 11/27/22 16:36 IMPRESSION: Age-related changes. Electronically Signed: Paul Lester DO at 17:04 EST , ADDENDUM: 11/27/22 1730 IMPRESSION: Age-related changes. N.B. : The above Results were Read Back by Paul Lester DO to Brett Ge MD, and understanding confirmed on 11/27/2022 17:23:27 (ET). Electronically Signed: Paul Lester DO at 17:04 EST , Head/Neck CTA 11/27/22 16:37 IMPRESSION: Moderate stenosis at the proximal right vertebral artery. Focal atherosclerotic plaques at the carotid bulbs with no hemodynamically significant stenosis. 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 Focal atherosclerotic plaques at the carotid bulbs with no hemodynamically significant stenosis. N.B. : The above Results were Read Back by Paul Lester DO to Brett Ge MD, and understanding confirmed on 11/27/2022 17:23:32 (ET). Electronically Signed: Paul Lester DO at 17:22 EST , Chest X-Ray 11/27/22 17:30 IMPRESSION: Interstitial prominence. Left basilar atelectasis. Electronically Signed: Paul Lester DO at 18:59 EST , Assessment & Plan Assessment/Plan (1) Facial droop: (2) Dysarthria: (3) Paresthesia of left upper extremity: (4) Hypokalemia: PLAN: Plan Left facial droop/dysarthria/left upper extremity paresthesias -Need to rule out TIA/stroke -CT of the brain is unremarkable other than age-related changes -CTA of the head and neck shows moderate stenosis at the proximal right vertebral artery and focal atherosclerotic plaques of the carotid bulbs with no hemodynamically significant stenosis -Check MRI brain -Echocardiogram -Continue home aspirin -Start Plavix 75 mg -Start atorvastatin 80 mg -Check lipids -Check hemoglobin A1c -NIH is currently 0 -PT/OT consultation Hypokalemia -P.o. potassium replacement with 60 mill equivalents -Recheck BMP in a.m. -Check a.m. magnesium level Elevated blood pressure with history of hypertension -Blood pressures were remarkably elevated in the emergency department -Continue home oral medications (lisinopril 20 mg p.o. twice daily/atenolol 50 mg daily/Lasix 20 mg daily) -As needed IV medications available -Monitor History of viral encephalitis -In 2017 -Daughter report that sometimes when she gets tired she does get some residual symptoms from that History of migraine headaches -Patient not with any current issues -No headache present prior to the above episode DM-2 -Patient's not on any agents for this -We will check hemoglobin A1c -Blood sugar on admission was normal Osteoporosis -Continue calcium vitamin D supplementation DVT prophylaxis -Lovenox CODE STATUS -Full code Charges/Coding Visit Charges Inpatient E&M: 50894 Init Hosp L3
[2022-11-27] MEDS: Potassium Chloride Oral Tablet 20 MEQ 60 MEQ PO (20:55)
[2022-11-27] MEDS: Atorvastatin Calcium 80 MG Tablet PO (20:55)
[2022-11-27] MEDS: Lisinopril 20 MG Tablet PO (20:55)
[2022-11-27 21:03] LABS: Hemoglobin A1c 5.5 % (3.8-5.6)
[2022-11-27] MEDS: Acetaminophen 325 MG Tablet 650 MG PO (21:30)
[2022-11-28] VITALS (11 sets, daily range): BP systolic 149–192; BP diastolic 74–94; PULSE 76–92; RESP 16–20; TEMP 36.4–37.1; O2SAT 79–98; BMI 29.4
[2022-11-28 07:00] LABS: Absolute Lymphocyte Count 0.86 X10^3/uL (0.83-4.51); Absolute Neutrophil Count 2.9 X10^3/uL (2.0-7.7); Basophil# 0.07 X10^3/uL; Basophil% 1.6 % (0-1); Eosinophil# 0.17 X10^3/uL; Eosinophils% 3.8 % (0-5); Hematocrit 38.9 % (37-47); Hemoglobin 12.8 g/dL (12.0-15.0); Lymphocyte # 0.86 X10^3/ul (0.83-4.51); Lymphocyte % 19.3 % (19-41); Mean Corp Hgb Conc 32.9 g/dL (32-36); Mean Corpuscular Hgb 30.3 pg (27.0-32.0); Mean Corpuscular Volume 92.2 fL (81-99); Mean Platelet Vol. 9.7 fl (6.2-12.0); Monocyte# 0.46 X10^3/uL; Monocyte% 10.3 % (0-10); NRBC Flagged by Analyzer 0 % (0-5); Neutrophil # 2.87 X10^3/uL (2.7-7.7); Neutrophil % 64.3 % (47-70); Platelet Count 149 K/mm3 (150-450); RBC Distribution Width SD 43.4 fl (35.1-43.9); Red Blood Count 4.22 M/mm3 (4.2-5.4); White Blood Count 4.5 K/mm3 (4.4-11.0)
[2022-11-28 07:36] LABS: Phosphorus 3.5 mg/dL (2.5-4.9)
[2022-11-28 07:56] LABS: ALB/GLOB Ratio 0.9 RATIO (0.9-2.4); AST(SGOT) 17 U/L (15-37); Alanine Aminotransfer ALT/SGPT 20 U/L (13-56); Alkaline Phosphatase 79 U/L (45-117); Anion Gap 9 (5-15); BUN 16 mg/dL (7-18); BUN/Creat Ratio 23.2 RATIO (10-20); Calcium,Total 8.5 mg/dL (8.5-10.1); Chloride 109 mmol/L (98-107); Cholesterol 184 mg/dL (200); Creatinine, Serum 0.69 mg/dL (0.55-1.02); EST Glomerular Filtration Rate 87 mL/min (>60); Est Glom Filt Rate - Afr Amer 105 mL/min (>60); Estimated Creatinine Clearance 31.69 ml/min; Globulin 3.5 g/dL (2.2-4.2); Glucose 117 mg/dL (74-106); High Density Lipoprotein 31 mg/dL; Magnesium 2.2 mg/dL (1.6-2.6); Potassium 3.9 mmol/L (3.5-5.1); Protein, Total 6.5 g/dL (6.4-8.2); Sodium Level 144 mmol/L (136-145); Thyroid Stim Hormone (TSH) 1.71 uIU/mL (0.358-3.74); Triglycerides 128 mg/dL; Very Low Density Lipoprotein 26 mg/dL (5-40)
--- NOTE | 2022-11-28 08:17 | OT ---
Verbal explanation to patient about expected functional level of stroke, movement quality and patterns and beginning for AROM and functional use of L side involvement. pt verbalizes understanding
--- NOTE | 2022-11-28 08:19 | PT ---
DISCUSSED PT PLAN OF CARE WITH PATIENT, PT. DEMONSTRATES SOME INCREASED RISK FOR FALLS, WHILE PT IS IN HOSPITAL PT WILL INCLUDE GAIT TRAINING AND POSSIBLY USE OF STRAIGHT CANE DUE TO SWAY DEMONSTRATED DURING EVAL TODAY
--- NOTE | 2022-11-28 10:00 | MRI_ITS ---
HISTORY: TIA/Stroke. TECHNIQUE: Multiplanar and multisequence MR images of the brain were obtained without contrast. 278 images. COMPARISON: CT prior day. FINDINGS: BRAIN PARENCHYMA: Two small foci of restricted diffusion in the right frontoparietal cortex. Small focus of restricted diffusion in the left temporal cortex. Small chronic right occipital infarct. Moderate foci and zones of increased T2 FLAIR signal in the bilateral cerebral white matter. No acute intracranial hemorrhage identified. CSF SPACES: Generalized volume loss. No significant midline shift or other mass effect.No extra-axial fluid collection. VASCULAR SYSTEM: Major intracranial flow voids are maintained. PARANASAL SINUSES AND MASTOID AIR CELLS: No significant air fluid levels. ORBITS: Bilateral lens resections. MRI/Brain without Contrast IMPRESSION: Small acute right frontoparietal and left temporal infarcts, likely embolic in origin. Chronic involutional and white matter changes. Chronic right occipital infarct. Electronically Signed: Meagan Michael MD at 11:02 EST ,
[2022-11-28] MEDS: Furosemide 20 MG Tablet PO (10:59)
[2022-11-28] MEDS: Lisinopril 20 MG Tablet PO ×2 (10:59→20:21)
[2022-11-28] MEDS: Atenolol 50 MG Tablet PO (10:59)
[2022-11-28] MEDS: Clopidogrel Bisulfate 75 MG Tablet PO (10:59)
[2022-11-28] MEDS: Aspirin 81 MG TAB.CHEW PO (10:59)
[2022-11-28] MEDS: Enoxaparin 40 MG/0.4 ML Syringe SC (10:59)
--- NOTE | 2022-11-28 11:53 | ECHOD_ITS ---
Reason For Study: TIA/CVA Procedure This was a 2D Doppler, Color Flow transthoracic echocardiogram. Exam performed portable in patient room. Left Ventricle Normal LV size. Left ventricular systolic function is normal. The estimated ejection fraction is 65 %. Stage 1 diastolic dysfunction. No regional wall motion abnormalities noted. Right Ventricle Normal RV size. Normal systolic function. Atria The left atrium is moderately enlarged. Normal right atrium. Bubble contrast study negative for right to left interatrial shunt. Mitral Valve Normal mitral valve. Tricuspid Valve Normal tricuspid valve. Mild tricuspid valve insufficiency. Pulmonary artery systolic pressure is 40 mmHg. Aortic Valve Trisinus/trileaflet aortic valve. Mild (1+) aortic valve insufficiency. Pulmonic Valve Normal pulmonic valve. Great Vessels Normal aortic root. The pulmonary artery is normal size. Normal inferior vena cava. Pericardium/Pleural No pericardial effusion. Medication Performed a rapid injection of agitated mix of 9 cc saline and 1cc air to assess for atrial septal defect. MMode/2D Measurements & Calculations LVIDd: 4.3 cm IVSd: 1.2 cm Ao root diam: 3.2 cm LVIDs: 2.3 cm LVPWd: 0.83 cm RVDd: 2.6 cm FS: 45.1 % LAV(MOD-sp4): 89.8 ml LVAd ap4: 26.2 cm2 SV(MOD-sp4): 46.5 ml LVLd ap4: 7.4 cm EDV(MOD-sp4): 72.8 ml EDV(sp4-el): 79.1 ml LVAs ap4: 13.3 cm2 LVLs ap4: 5.6 cm ESV(MOD-sp4): 26.4 ml ESV(sp4-el): 26.9 ml EF(MOD-sp4): 63.8 % EF(sp4-el): 65.9 % SV(sp4-el): 52.1 ml LA A4 area: 25.9 cm2 LA dimension(2D): 4.2 cm RA A4 area: 13.9 cm2 Time Measurements MV dec time: 0.24 sec Doppler Measurements & Calculations MV E max wei: 81.9 cm/sec Lat Peak E' Wei: 7.9 cm/sec Med Peak E' Wei: 6.6 cm/sec MV A max wei: 115.8 cm/sec E/E' lat: 10.3 E/E' med: 12.5 MV E/A: 0.71 MV V2 max: 91.4 cm/sec MV dec slope: 341.2 cm/sec2 Ao V2 max: 133.8 cm/sec MV max P.4 mmHg Ao max P.2 mmHg MV V2 mean: 61.0 cm/sec Ao V2 mean: 95.1 cm/sec MV mean P.7 mmHg Ao mean P.1 mmHg MV V2 VTI: 25.4 cm Ao V2 VTI: 28.3 cm AV (velocity ratio): 0.96 AI max wei: 393.5 cm/sec LV V1 max: 129.0 cm/sec TR max wei: 300.6 cm/sec AI max P.0 mmHg LV V1 max P.7 mmHg TR max P.2 mmHg AI dec slope: 259.9 cm/sec2 LV V1 mean P.7 mmHg AI P1/2t: 443.5 msec LV V1 mean: 89.9 cm/sec LV V1 VTI: 27.1 cm ECHO/Echo Complete Interpretation Summary Normal LV size. Left ventricular systolic function is normal. The estimated ejection fraction is 65 %. The left atrium is moderately enlarged. Stage 1 diastolic dysfunction. Bubble contrast study negative for right to left interatrial shunt. Mild (1+) aortic valve insufficiency. Pulmonary artery systolic pressure is 40 mmHg. Ordering Physician: Dustin Rodríguez Referring Physician: Isai Hercules Performed By: Caroline Leo RCS
--- NOTE | 2022-11-28 18:27 | PCM.PN.HOSP ---
Reason for Visit Reason for Visit: Diagnoses Hypokalemia (11/28/22) Paresthesia of skin (11/28/22) Facial weakness (11/28/22) Dysarthria and anarthria (11/28/22) Subjective Subjective Patient was seen and examined today, I talked at length with the patient and her daughter who was in the room at the time my examination. Patient had two strokes on the MRI today-a small acute right frontal parietal and left temporal infarct-these are likely embolic in origin. I with through the treatment plan with the patient and the patient's daughter, I told her she would be on aspirin and Plavix for 21 days and also be placed on Lipitor, I lowered the dose of Lipitor to make sure the patient was able to tolerate it. I also told her she would need to be set up for 30-day Holter monitor at the time of discharge from the hospital to rule out any possibility she is going in and out of A-fib. Patient had a past history of a stroke before-on the MRI there is noted to be a chronic right occipital infarct present. Patient's blood pressure has been high this afternoon, I have added Cardizem CD to her medications, she states she cannot take Norvasc due to severe swelling with Norvasc. Patient is already on lisinopril and atenolol as well as Lasix, she had very low potassium when she was on chlorthalidone and that is why she is taking Lasix. Objective Data Objective Data Vital Signs: Vital Signs Temp Pulse Resp BP Pulse Ox O2 Del Method O2 Flow Rate 98.1 F 82 16 192/142 H 98 Room Air 2 11/28/22 18:00 11/28/22 18:00 11/28/22 18:00 11/28/22 18:00 11/28/22 18:00 11/28/22 18:00 11/28/22 04:15 Oxygen Flow Rate (L/min) 2 Oxygen Delivery Method Room Air Weight: 68.4 kg Body Mass Index (BMI) 29.4 Intake & Output: Intake and Output for Last 24 Hours 11/26/22 11/27/22 11/28/22 23:59 23:59 23:59 Intake Total 240 / 240 960 / 960 Balance 240 / 240 960 / 960 Lab / Micro Data Result Diagrams: 11/28/22 06:32 11/28/22 06:32 Labs: Laboratory Results - last 24 hr 11/27/22 16:25: Hemoglobin A1c 5.5 11/28/22 06:32: WBC 4.5, RBC 4.22, Hgb 12.8, Hct 38.9, MCV 92.2, MCH 30.3, MCHC 32.9, RDW Std Deviation 43.4, RDW Coeff of Aurelio 13.0, Plt Count 149 L, MPV 9.7, Immature Gran % (Auto) 0.700, Neut % (Auto) 64.3, Lymph % (Auto) 19.3, Mccormick % (Auto) 10.3 H, Eos % (Auto) 3.8, Baso % (Auto) 1.6 H, Absolute Neuts (auto) 2.9, Absolute Lymphs (auto) 0.86, Nucleated RBC % 0 11/28/22 06:32: Sodium 144, Potassium 3.9, Chloride 109 H, Carbon Dioxide 26.0, Anion Gap 9, BUN 16, Creatinine 0.69, Estim Creat Clear Calc 31.69, Est GFR (MDRD) Af Amer 105, Est GFR (MDRD) Non-Af 87, BUN/Creatinine Ratio 23.2 H, Glucose 117 H, Calcium 8.5, Magnesium 2.2, Total Bilirubin 0.50, AST 17, ALT 20, Alkaline Phosphatase 79, Total Protein 6.5, Albumin 3.0 L, Globulin 3.5, Albumin/Globulin Ratio 0.9, Triglycerides 128, Cholesterol 184, LDL Cholesterol 127, VLDL Cholesterol 26, HDL Cholesterol 31 L, TSH 1.71 11/28/22 06:32: Phosphorus 3.5 Radiography Diagnostic Testing: Radiology Impression Chest X-Ray 11/27/22 17:30 IMPRESSION: Interstitial prominence. Left basilar atelectasis. Electronically Signed: Paul Lester DO at 18:59 EST Reading Location ID and State: [facility] / [place] Tel [phone], Service support , Brain MRI 11/28/22 10:00 IMPRESSION: Small acute right frontoparietal and left temporal infarcts, likely embolic in origin. Chronic involutional and white matter changes. Chronic right occipital infarct. Electronically Signed: Meagan Michael MD at 11:02 EST , Rhythm Strip Rhythm Strip: Sinus Rhythm Rate: 79 Ectopy: None Physical Exam Const alert, oriented x3, no apparent distress, average body habitus and healthy appearing General Appearance: cooperative, well kempt and well developed Orientation / Consciousness: awake, oriented to person, oriented to place and oriented to time HEENT normocephalic, head/scalp atraumatic and moist oral mucous membranes HEENT Narrative: Patient has some slight left mouth drooping Head and Scalp: normocephalic Eyes PERRL, EOMs intact bilaterally and conjunctivae normal Neck supple, no JVD and thyroid normal General: trachea midline Resp normal respiratory effort, no retractions, no use of accessory muscles and clear to auscultation bilaterally Auscultation: Negative for rales, rhonchi or wheezes Cardio regular rate, regular rhythm, S1 normal heart sound, S2 normal heart sound, no murmurs, no rub and no gallops GI normal to inspection, nondistended, normoactive bowel sounds, soft to palpation, non-tender and non-distended Extremity no clubbing, cyanosis or edema Skin no rashes or lesions noted General Skin Exam: no breakdown Neuro oriented x3, CN's II-XII intact bilaterally, moves all extremities, no focal motor deficits and no sensory deficits noted Sensorium / Orientation: awake and alert Speech: speech normal Psych affect normal Assessment & Plan Assessment/Plan (1) Paresthesia of left upper extremity: PLAN: Plan 1. Acute right frontal parietal and left temporal infarcts-felt to be secondary to embolic phenomenon, again patient was placed on Plavix and aspirin, echocardiogram will be performed tomorrow, patient is also on a statin, she will need set up for 30-day event monitor at the time of discharge from the hospital. #2 essential hypertension-under poor control, I added Cardizem CD to patient's medication might, blood pressure will be monitored. #3 history of cerebrovascular disease-patient had a chronic right occipital infarct noted on the MRI, she takes a daily baby aspirin a day at home Further note: According to the patient's daughter, patient had a past history of viral meningitis and at times cannot remember instructions, I told her that everything would be written out and it was a good thing with the daughter was in the room today so I could explain the patient's medical course to her. Patient lives across the [address] from her daughter. Total clinical time spent by myself addressing the patient's medical issues, reviewing all of the data, and collaborating with patient's care team: 50 minutes Charges/Coding Visit Charges Inpatient E&M: 06791 [facility] L3
[2022-11-28] MEDS: dilTIAZem CD 180 MG Capsule PO (18:50)
[2022-11-28] MEDS: Temazepam 15 MG Capsule PO (20:20)
[2022-11-28] MEDS: Atorvastatin Calcium 40 MG Tablet PO (20:21)
[2022-11-29 03:30] VITALS: BP 172/68; PULSE 86; RESP 20; TEMP 36.4; O2SAT 97
[2022-11-29] MEDS: Acetaminophen 325 MG Tablet 650 MG PO (03:53)
[2022-11-29 07:30] VITALS: BP 182/72; PULSE 79; RESP 18; TEMP 36.8; O2SAT 92; O2SAT 98
--- NOTE | 2022-11-29 08:16 | PCM.PN.HOSP ---
Reason for Visit Reason for Visit: Diagnoses Hypokalemia (11/28/22) Paresthesia of skin (11/28/22) Facial weakness (11/28/22) Dysarthria and anarthria (11/28/22) Objective Data Objective Data Vital Signs: Vital Signs Temp Pulse Resp BP Pulse Ox O2 Del Method O2 Flow Rate 97.5 F L 86 20 H 172/68 H 92 Room Air 2 11/29/22 03:30 11/29/22 03:30 11/29/22 03:30 11/29/22 03:30 11/29/22 07:30 11/29/22 07:30 11/28/22 04:15 Oxygen Flow Rate (L/min) 2 Oxygen Delivery Method Room Air Weight: 150 lb 12.739 oz Body Mass Index (BMI) 29.4 Intake & Output: Intake and Output for Last 24 Hours 11/27/22 11/28/22 11/29/22 23:59 23:59 23:59 Intake Total 240 / 240 960 / 1260 300 / 300 Balance 240 / 240 960 / 1260 300 / 300 Lab / Micro Data Result Diagrams: 11/28/22 06:32 11/28/22 06:32 Radiography Diagnostic Testing: Radiology Impression Brain MRI 11/28/22 10:00 IMPRESSION: Small acute right frontoparietal and left temporal infarcts, likely embolic in origin. Chronic involutional and white matter changes. Chronic right occipital infarct. Electronically Signed: Meagan Michael MD at 11:02 EST Reading Location ID and State: [facility] / [place] Tel , Service support , Rhythm Strip Rhythm Strip: Sinus Rhythm Rate: 79 Ectopy: None Assessment & Plan Assessment/Plan (1) Paresthesia of left upper extremity: PLAN: Plan 1. Acute right frontal parietal and left temporal infarcts-felt to be secondary to embolic phenomenon, again patient was placed on Plavix and aspirin, echocardiogram will be performed tomorrow, patient is also on a statin, she will need set up for 30-day event monitor at the time of discharge from the hospital. #2 essential hypertension-under poor control, I added Cardizem CD to patient's medication might, blood pressure will be monitored. #3 history of cerebrovascular disease-patient had a chronic right occipital infarct noted on the MRI, she takes a daily baby aspirin a day at home Further note: According to the patient's daughter, patient had a past history of viral meningitis and at times cannot remember instructions, I told her that everything would be written out and it was a good thing with the daughter was in the room today so I could explain the patient's medical course to her. Patient lives across the street from her daughter. Total clinical time spent by myself addressing the patient's medical issues, reviewing all of the data, and collaborating with patient's care team: 50 minutes
--- NOTE | 2022-11-29 08:17 | DCINST_ITS ---
Discharge Instructions Diet Discharge Diet: Low fat / Low cholesterol and 2000 mg Sodium Diet Activity Discharge Activity: Return to Normal Activity Weight Bearing Status: Weight bearing as tolerated Dressing / Incision Call your doctor if you observe: Fever of 101 or Higher, Coldness, Increased Pain, Numbness or Tingling, Change in Color, Inability to urinate, Inability to have a bowel movement, Using more than 1 pad per hour, Shortness of breath, Dizziness, Fainting spells, Swelling in the ankles, Chest pain, Prolonged hiccupping, Increased palpitations (irregular heartbeat) and Calf discomfort Follow Up Care When: IN 2 WEEKS Test Results: Test results from this visit will be discussed in further detail at your follow- up appointment, if applicable. Discharge Plan Admission Admit Date/Time: 11/28/22 15:13 Primary Reason for Your Visit: Stroke Attending Provider: Loyd Montero Primary Care Provider: Isai Hercules Consulting Providers: Violetta Meneses ; Dustin Rodríguez Discharge Orders/Prescriptions Prescriptions: New sennosides-docusate sodium [Stool Softener-Stimulant Laxat] 8.6-50 mg Tablet 2 tab PO BID PRN PRN (Reason: Constipation) Qty: 0 0RF clopidogrel 75 mg Tablet 75 mg PO DAILY Qty: 30 0RF hydralazine 50 mg tablet 50 mg PO TID Qty: 90 2RF Rx Instructions: Hold for SBP less than 130 mmHg Continued lisinopril 20 mg tablet 20 mg PO BID Label Comments: TAKE 1 TABLET BY MOUTH TWICE A DAY aspirin [Aspirin Childrens] 81 mg tablet,chewable 81 mg PO DAILY Label Comments: once a day furosemide 20 mg tablet 20 mg PO DAILY Label Comments: TAKE 1 TABLET BY MOUTH EVERY DAY Calcium 600 + D(3) 600 mg-5 mcg (200 unit) Capsule 1 cap PO DAILY Changed atenolol 50 mg tablet 75 mg PO DAILY Qty: 30 0RF Label Comments: TAKE 1 TABLET BY MOUTH EVERY DAY Other Ambulatory Orders: 30 Day Event Recorder Preventi (Urgent) Timeframe: 1 Day Facility: [facility] - Location: Cardiovascular Services Ordered By: Dr. Loyd Montero Referrals / Follow Up: Isai Hercules MD [Primary Care Provider] - Lazaro Landon MD [Non-Staff -Ordering Privileges] - Within 2 Weeks (Follow up for stroke) Disposition Disposition (needs filled in before D/C Order can be placed): Home Health Service
[2022-11-29] MEDS: Aspirin 81 MG TAB.CHEW PO (09:00)
[2022-11-29] MEDS: 0.9% Saline Lock 10 ML Syringe IV (09:11)
[2022-11-29] MEDS: dilTIAZem CD 180 MG Capsule PO (09:11)
[2022-11-29] MEDS: Furosemide 20 MG Tablet PO (09:12)
[2022-11-29] MEDS: Lisinopril 20 MG Tablet PO (09:12)
[2022-11-29] MEDS: Atenolol 50 MG Tablet PO (09:12)
[2022-11-29] MEDS: Clopidogrel Bisulfate 75 MG Tablet PO (09:12)
[2022-11-29] MEDS: Enoxaparin 40 MG/0.4 ML Syringe SC (09:12)
--- NOTE | 2022-11-29 10:23 | DS.PCM_ITS ---
Providers Date of Admission: 11/28/22 Date of Discharge: 11/29/22 Primary Care Physician: Dr. Isai Hercules MD Reason For Visit: TIA Diagnosis Discharge Diagnosis (1) Paresthesia of left upper extremity: Status: Acute Code(s): R20.2 - Paresthesia of skin Plan 82-year-old female was admitted with multiple symptoms. Initially she had left upper extremity paresthesia numbness and then dysarthria and mild language deficit. She denies problems with writing or reading. 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 1. 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 2D echo shows a small acute right frontoparietal and left temporal infarct. CTA shows moderate to stenosis of proximal right vertebral artery, focal atherosclerotic plaques at the carotid bulbs with no hemodynamically significant stenosis or aneurysm. Patient is on Plavix and aspirin, high intensity statin. 2D echo was done which shows EF 65% with stage I diastolic dysfunction consistent with chronic HFpEF. Bubble contrast study was negative for kiome-yc-waam interatrial shunt. Mild AR. 30-day event monitor authorized by Dr. Gaines. Advised follow-up with neurologist in 2 weeks as mentioned in discharge instruction and cardiology clinic after 30-day event monitor. #2 essential hypertension, poor control:-Patient on maximum dose of lisinopril 20 mg twice daily. Cardizem was tried but not successful. Patient is discharged on hydralazine 50 mg 3 times daily. Follow with PCP for adequate control of blood pressure. #3 history of cerebrovascular disease-patient had a chronic right occipital infarct noted on the MRI, she takes a daily baby aspirin a day at home. She has a history of viral encephalitis about 5 years ago. Discharge medication reconciliation done. Discharge follow-up instructions completed. Discharge process discussed with the patient and all questions were answered to patient's satisfaction. Total time spent, exact 40 minutes on discharge meds reconciliation, examination, coordination of care with nurses and ancillary staff, review of imaging and blood test and discussion with the patient on follow-up instructions. Medications at Discharge Home Medications aspirin 81 mg chewable tablet (Aspirin Childrens) 81 mg PO DAILY [facility] 11/27/22 calcium carbonate 600 mg-vitamin D3 5 mcg (200 unit) capsule (Calcium 600 + D(3)) 1 cap PO DAILY supplement 11/27/22 furosemide 20 mg tablet 20 mg PO DAILY diuretic 11/27/22 lisinopril 20 mg tablet 20 mg PO BID blood pressure 11/27/22 atenolol 50 mg tablet 75 mg PO DAILY bp #30 tabs 11/29/22 clopidogrel 75 mg tablet 75 mg PO DAILY #30 tabs 11/29/22 hydralazine 50 mg tablet 50 mg PO TID #90 tabs 11/29/22 sennosides 8.6 mg-docusate sodium 50 mg tablet (Stool Softener-Stimulant Laxative) 2 tab PO BID PRN PRN Constipation #0 tabs 11/29/22 Physical Exam Narrative Seen and examined. Patient has mild dysarthria and slurring of his speech. Denies loss of acuity or field of vision. Patient does not remember well with history of viral encephalitis about 5 years ago. Physical exam General: Alert, Oriented x3, Cooperative HEENT: Atraumatic, PERRLA, EOMI, Normocephalic Oral: No Gingival or Mucosal Lesions/ Ulcerations Neck: Supple, No JVD, Negative Carotid Bruits Lungs: Air entry diminished in bilateral lung bases. No crepitation/rhonchi Cardiovascular: Sinus rhythm regular rate, Regular Rhythm, Normal S1, Normal S2, grade 2/6 diastolic murmur or right second ICS Abdomen: Bowel Sounds Present, Soft, Non Tender, Non-Distended : No renal angle tenderness. No suprapubic tenderness. Extremities: No edema, Capillary Refill Less than 3 Seconds Skin: No rashes, No breakdown Musculoskeletal: No Tenderness to Palpation of Joints or Extremities. ROM full. Neurological: Right-sided facial droop. Mild language deficit and dysarthria. Muscle strength 5/5 at major joints. No gross asymmetry of gross sensation between 2 sites. Psych/Mental Status: Flat affect. History of viral encephalitis. Mild cognitive deficit. Weight / BMI Weight Weight: 150 lb 12.739 oz Body Mass Index (BMI) 29.4 ABG / Lab / Microbiology Data Result Diagrams: 11/28/22 06:32 11/28/22 06:32 Radiography Diagnostic Testing: Radiology Impression Brain MRI 11/28/22 10:00 IMPRESSION: Small acute right frontoparietal and left temporal infarcts, likely embolic in origin. Chronic involutional and white matter changes. Chronic right occipital infarct. Electronically Signed: Meagan Michael MD at 11:02 EST Reading Location ID and State: [facility] / [place] Tel , Service support , D/C Instructions Discharge Diet: Low fat / Low cholesterol and 2000 mg Sodium Diet Weight Bearing Status: Weight bearing as tolerated Call your doctor if you observe: Fever of 101 or Higher, Coldness, Increased Pain, Numbness or Tingling, Change in Color, Inability to urinate, Inability to have a bowel movement, Using more than 1 pad per hour, Shortness of breath, Dizziness, Fainting spells, Swelling in the ankles, Chest pain, Prolonged hiccu pping, Increased palpitations (irregular heartbeat) and Calf discomfort When: IN 2 WEEKS Meaningful Use Info Meaningful Use Diagnoses (Choose all that apply): Ischemic CVA CVA Therapy Assessed for PT,OT and/or ST?: Yes Ischemic Stroke Antithrombotic order at d/c?: Yes Dx of Atrial fib/flutter?: No Anticoagulant at discharge?: Yes Statins at discharge?: Yes Primary Dx Acute Ischemic CVA?: Yes IV tPA ordered during stay?: No Reason IV t-PA not ordered: Medical Contraindication Discharge Plan Admission Admit Date/Time: 11/28/22 15:13 Primary Reason for Your Visit: Stroke Attending Provider: Loyd Montero Primary Care Provider: Isai Hercules Consulting Providers: Violetta Meneses ; Dustin Rodríguez Discharge Orders/Prescriptions Prescriptions: New sennosides-docusate sodium [Stool Softener-Stimulant Laxat] 8.6-50 mg Tablet 2 tab PO BID PRN PRN (Reason: Constipation) Qty: 0 0RF clopidogrel 75 mg Tablet 75 mg PO DAILY Qty: 30 0RF hydralazine 50 mg tablet 50 mg PO TID Qty: 90 2RF Rx Instructions: Hold for SBP less than 130 mmHg Continued lisinopril 20 mg tablet 20 mg PO BID Label Comments: TAKE 1 TABLET BY MOUTH TWICE A DAY aspirin [Aspirin Childrens] 81 mg tablet,chewable 81 mg PO DAILY Label Comments: once a day furosemide 20 mg tablet 20 mg PO DAILY Label Comments: TAKE 1 TABLET BY MOUTH EVERY DAY Calcium 600 + D(3) 600 mg-5 mcg (200 unit) Capsule 1 cap PO DAILY Changed atenolol 50 mg tablet 75 mg PO DAILY Qty: 30 0RF Label Comments: TAKE 1 TABLET BY MOUTH EVERY DAY Other Ambulatory Orders: 30 Day Event Recorder Preventi (Urgent) Timeframe: 1 Day Facility: [facility] - Location: Cardiovascular Services Ordered By: Dr. Loyd Montero Referrals / Follow Up: Isai Hercules MD [Primary Care Provider] - Lazaro Landon MD [Non-Staff -Ordering Privileges] - Within 2 Weeks (Follow up for stroke) Disposition Disposition (needs filled in before D/C Order can be placed): Home Health Service Charges/Coding Visit Charges Inpatient E&M: 00656 Disch Hosp >30min
--- NOTE | 2022-11-29 11:10 | CASEMGMT ---
Addendum entered by Brandee Cortez 11/29/22 11:21: Script received from hospitalist and included with discharge packet. Original Note: RN CM Face to Face with patient for initial transition planning/care coordination assessment. NORMA DUNCAN introduced self and role at [facility]. Patient lying in bed, alert and oriented, daughter Nina on speaker phone. Daughter willing to participate in assessment and is able to answer all questions appropriately. Care providers, pharmacy, and demographics verified. Patient and daughter wish for patient to discharge home with outpatient therapy. RN CM to assist with obtaining script for outpatient therapy. Patient and daughter state they have no further needs or concerns at this time. CM to follow for discharge planning needs that may arise. PCP: Di[facility]es Specialists: Naeem urologist; JOSHUA Mondragon Preferred [facility]acy: [facility] Insurance: [facility] Prescription Benefit: yes Living Will/HPOA: yes, daughter Nina Irvin HPOA LNOK: daughter Living Arrangements: Patient lives alone in a single story home with 2 steps to enter the home. Patient was independent at home. Daughter lives across the road from patient. Patient will go over to daughters house and stay for a couple of days. Transportation: self, daughter DME/HHC: Patient has BP cuff. Patient has previously been to [facility]. Patient and daughter interested in outpatient therapy, NORMA DUNCAN to obtained script for patient to take to outpatient therapy center of her choice. Disposition Plan: Patient to discharge home with outpatient therapy, family support, and follow-up plans in place. Barndee KO, RN, CM
[2022-11-29 11:30] VITALS: BP 175/70; PULSE 82; RESP 16; TEMP 36.7; O2SAT 99
--- NOTE | 2022-11-29 12:33 | PHA.DC.MC ---
Pharmacy Service has performed discharge medication reconciliation and counseling for this patient. The patient was counseled on the following discharge medications and changes in medications for homegoing were reviewed. 1. PLAVIX 2. HYDRALAZINE 3. SENNA/DOCUSATE 4. ATENOLOL- DOSE CHANGE The Reason for Use, instructions for use, and potential side effects were reviewed for all new medications. The patient's questions regarding all of their medications were answered. The patient was able to verbally demonstrate an understanding of their discharge medications. Home Medications aspirin 81 mg chewable tablet (Aspirin Childrens) 81 mg PO DAILY [facility] 11/27/22 calcium carbonate 600 mg-vitamin D3 5 mcg (200 unit) capsule (Calcium 600 + D(3)) 1 cap PO DAILY supplement 11/27/22 furosemide 20 mg tablet 20 mg PO DAILY diuretic 11/27/22 lisinopril 20 mg tablet 20 mg PO BID blood pressure 11/27/22 atenolol 50 mg tablet 75 mg PO DAILY bp #30 tabs 11/29/22 clopidogrel 75 mg tablet 75 mg PO DAILY #30 tabs 11/29/22 hydralazine 50 mg tablet 50 mg PO TID #90 tabs 11/29/22 sennosides 8.6 mg-docusate sodium 50 mg tablet (Stool Softener-Stimulant Laxative) 2 tab PO BID PRN PRN Constipation #0 tabs 11/29/22 The patient's discharge medication list was reviewed for discrepancies and discrepancies were resolved.
--- NOTE | 2022-11-29 12:48 | CASEMGMT ---
SW completed a PHQ 9 with patient as she had a Stroke. Patient scored a 3 which indicates minimal depression. Patient declined any need for counseling resources. Yana GUEVARA
--- NOTE | 2022-11-29 13:11 | CHAPLAIN ---
Type of Pastoral Visit _x__ Initial Visit ___ Follow-up Visit ___ On-call Visit ___ General Patient Visit ___ Spiritual Assessment ___ Family Conference ___ Bereavement ___ Rapid Response ___ Code Blue ___ Other (describe below) Pastoral Care Referral From _x__ Patient ___ Family ___ Nurse ___ Physician ___ Metal Flooring Installer ___ Health Care Marketing Manager ___ Other (describe below) Sacrament/Intervention _x__ Active listening ___ Anointing ___ Catholic ___ Bereavement ___ Communion _x__ Vannesa exploration ___ _x__ Life review _x__ Prayer ___ Reconciliation ___ Sacrament of Sick _x__ Supportive presence ___ Wedding ___ Other (describe below) Pastoral Comments patient gave long and full details about her health history and particulars on this illness; pt does hesitate a bit for the right words and admits to same but does not lack in ability to communicate; pt has vannesa in God and family support; pt expresses gratitude for spiritual care support, presence, and prayer;
[2022-11-29 14:08] VITALS: BP 169/63; PULSE 73; RESP 16; TEMP 37; O2SAT 95
[2022-11-29 14:09] VITALS: BP 169/63; PULSE 73
[2022-11-29] MEDS: hydrALAZINE 20 MG/ML Vial 10 MG IV (14:09)
== END 2022-11-29 15:38 | disposition home health service (06) | DRG 65 ==
LOC: ED 18:52 → PCU 19:50
PROVIDERS: Admitting Provider Internal Medicine; Emergency Provider Emergency Medicine; PCP Family Medicine; Visit Provider Internal Medicine
DX: I63.40 Cerebral infarction due to embolism of unspecified cerebral artery (principal); I50.32 Chronic diastolic (congestive) heart failure; E11.9 Type 2 diabetes mellitus without complications; I11.0 Hypertensive heart disease with heart failure; I67.2 Cerebral atherosclerosis; E87.6 Hypokalemia; I65.01 Occlusion and stenosis of right vertebral artery; I65.29 Occlusion and stenosis of unspecified carotid artery; R47.1 Dysarthria and anarthria; M81.0 Age-related osteoporosis without current pathological fracture; Z79.82 Long term (current) use of aspirin
CPT/HCPCS: 36415; 70450; 70496; 70498; 70551; 71045; 80048; 80053; 80061; 83036; 83735; 84100; 84443; 84484; 85025; 85610; 85730; 93005; 93306; 94668; 94762; 97162; 97165; 99285; Q9967; A4216

== ENCOUNTER 2022-12-08 10:09 | Outpatient (RCR) | payer MEDICARE, OTHER, SELFPAY ==
--- NOTE | 2022-12-08 17:36 | HP.SP.EVAL ---
Visit History - Visit Info Date of Eval: 12/08/22 Visit: 1 Physical Sciences Instructor: MARTHA - History Attending Doctor: Referring Doctor: Reason for Referral: CVA PT HAS RX Previous speech therapy: Yes Results: Merlyn is an 82 y.o. female who was seen at [facility] for a speech, language, cognition and swallowing examination after a CVA. Pt's daughter attended the session and helped provided background hx Other Relevant Medical History/Diagnoses/Surgery: Viral infespalitis. 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 speech changes, some slurred speech. Just moved in to place with daughter & her daughter. some medication - blood thinner, heart monitor,. goal is to live by herself again. Pt just had tooth extracted 2 weeks ago on the L side. Pt got new hearing aids a month ago. memory is an issue Smoking Status: Never smoker - Diagnosis Diagnosis: CVA - Pain Is pain an issue with your current prescribed condition?: No - Personal Preferred language: Maltese History - History Date of Eval: 12/08/22 Previous speech therapy: Yes Results: Merlyn is an 82 y.o. female who was seen at [facility] for a speech, language, cognition and swallowing examination after a CVA. Pt's daughter attended the session and helped provided background hx Other Relevant Medical History/Diagnoses/Surgery: Viral infespalitis. 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 speech changes, some slurred speech. Just moved in to place with daughter & her daughter. some medication - blood thinner, heart monitor,. goal is to live by herself again. Pt just had tooth extracted 2 weeks ago on the L side. Pt got new hearing aids a month ago. memory is an issue Smoking Status: Never smoker Hx Smoking: No Hx Tobacco Use: No - Pain Is pain an issue with your current prescribed condition?: No Patient Allergies - Allergies Allergies amlodipine Adverse Reaction (Intermediate, Verified 11/27/22 17:24) Other Lower extremity edema Objective Oralfacial Myology - Oral Exam Drooling: Day, Night - Breathing Breathing: Nose - Masseters Masseters: Weaker L Side - Mentalis Mentalis: WNL - Jaw Jaw Stability: WNL - Tongue/Mandible Differentiation Horizontal: WNL Lateralization: WNL Vertical: WNL - Dentition Dentition: Permanent Closed Bite: Yes - Lips Lips: Competent Posture: Combination Rounding: Weak Maintain suction: Brief - Articulation Additional: Pt and daughter noted slurred speech has improved but worsens at she gets tired Objective Dysphagia - Administered by Administered by: Self - Thin Liquids Administred via: Straw Oral Transit: WNL Bolus clearance: fully cleared Gagging: No Cough: none observed/unable to assess Pharyngeal phase: immediate laryngeal elevation - Soft & Bite sized (Mechanical) Patient Report: Pt reported that chewing up food has been difficult. Pt recently got an infected back molar extracted on her left side. Pt has been attempted to chew only soft foods on her right side. Unclear if tooth or facial weakness is causing the mild oral phase dysphagia. Will monitor and reassess during sessions for changes as well as during tx. - Swallowing Impairment Contributing Factors to Swallowing Impairment: Reduced Alertness or Attention, Reduced Oral Strength/Coordination/Sensation, Mastication Inefficiency - Impact Impact on Safety & Functioning: Risk for Inadequate Nutrition/Hydration Comments: Pt should eat soft foods until her oral phase dysphagia is corrected - Recommendations Modified Barium Swallow/Cookie Swallow Recommended: No Swallowing Treatment: Yes - Diet Texture Recommendations Solids: Soft & Bite sized (Level 6, Chopped) Liquids: Thin (Level 0) - Safety Saftey Precautions/Swallowing Recommendations (Check all that Apply): 1 to 1 Distant Supervision, Reduce Distractions, Needs Verbal Cues to Use Recommended Strategies, Upright Position at Least 30 Minutes After Meals, Small Sips & Bites when Eating - Results Swallowing Within Normal Limits: No Swallowing Diagnosis: Oral Phase Dysphagia (R13.11) Severity: Mild Objective Cog/Ling/Com - Test Administered Nghpfvtmi-Ndjegujyqi-Ihxphskbktbkl Assessment Administered: Yes Rgdztdoor-Wzmsmcgjvy-Wbiiannypqlkx Assessment: Cognitive ? Linguistic skills were evaluated using patient/family interview, skilled observation and informal evaluation through tasks completed by the patient. - Orientation Orientation: Person, Place, Date, Birthdate, Medical Diagnosis - Naming Responsive naming: Mild Naming in categories: WNL Pinch: WNL Abstract: Moderate - Conversational Tasks Conversational Tasks: Moderate Comments: Pt got distracted and often changed the conversation topic during the middle of the task. Pt with inappropriate laughter for 30 seconds. Pt had word finding difficulties characterized by semantic paraphasias, phonemic paraphasias, and pausing to search for the words then saying I cant remember it - Reading Picture-Word Matching Picture-Word matching: WNL, WFL - Oral Reading Paragraphs: WFL Comments: Pt lost place x3. Good pronunication - Recall Comments: Delayed recall: 2/3, 3/3. Immediate Recall: 3/3. Animals: 13. Words that start with m: 10. Round Items: 5. Cold items: 3 - Medication Reading a medication label: Severe Correctly stating instructions of medications: Severe Completing medications independently: Severe - Numerical Skills Telling Time: 12/30 - Problem Solving Simple: Severe Complex: Severe - Cognitive Linguistic Supervision/Saftey Awareness of deficits: WFL Being left home alone: Mild Managing medications: Severe Managing finances: Severe - Executive Function Comments Comments: Unable to complete alternating attention task. Plan - Recommendations MBS: No Treatment Warranted: Yes Treatment Warranted: Receptive/ Expressive Language, Cognition - Progress Prognosis: Good - Frequency Frequency: 1-2x /Week Duration: 6 Months - Goals that are Established Determination:: Goals will be added/modified as deemed necessary and appropriate. Therapy will be discontinued when results of re-evaluation indicate therapy is no longer needed or lack of progress has been documented. - Goal #1-5 Goal #1: Pt will name 8-10 items in an abstract category to improve word retrieval during 2/3 trials during ? sessions. Goal #2: Pt will tolerate the least restrictive diet s/s of aspiration and participate in an ongoing assessment of swallow function. Goal #3: Pt will tolerate the least restrictive diet w/o pocketing foods or s/s of aspiration. Goal #4: Pt will complete executive functioning, problem solving and safety awareness including but not limited to functional ADLs such as meditation, finance, cooking, planning and scheduling to promote living independence with 80% acc independently across 3/4 measured opportunities. Goal #5: Pt will complete semantic features analysis with at least 5 features during 2/3 trials in a session for 3/4 sessions. - Goal #6-10 Goal #6: Pt will I monitor and utilize strategies to improve word finding and speech clarity within 1 month of the evaluation as measured by a self and/or caregiver checklist scores of 3 Education - Patient Instruction Patient Education: Diagnosis, Treatment Plan, Goals Person Taught: Patient, Family Teaching Method: Discussion Response to teaching: Verbalize understanding, Reinforcement needed
== END 2022-12-08 19:00 | disposition home or self-care (01) ==
LOC: SP 10:09
PROVIDERS: PCP Family Medicine; Referring Provider Internal Medicine; Visit Provider Internal Medicine
DX: I69.328 Other speech and language deficits following cerebral infarction (principal); R13.11 Dysphagia, oral phase
CPT/HCPCS: 92523; 92610; 97166

== ENCOUNTER 2022-12-14 09:57 | Emergency (ER) | payer MEDICARE, OTHER, SELFPAY ==
[2022-12-14 09:59] VITALS: BP 172/97; PULSE 86; RESP 14; TEMP 36.1; O2SAT 98
[2022-12-14 10:11] VITALS: O2SAT 97; BMI 27.2
[2022-12-14 10:12] VITALS: BP 183/95; PULSE 90; RESP 16; O2SAT 97
--- NOTE | 2022-12-14 10:14 | RAD_ITS ---
STUDY: X-RAY CHEST REASON FOR EXAM: Female, 82 years old. Shortness of Breath TECHNIQUE: Single AP portable view of the chest. COMPARISON: Comparison is made with prior examination November 27, 2022. FINDINGS: EKG electrodes are seen. A monitoring device is seen overlying the upper trachea. The lungs are clear and expanded. There is no demonstrated pleural abnormality. Normal size heart. Normal mediastinum and irma. Normal visualized pulmonary arteries. There is atherosclerotic tortuosity of the aortic arch and descending thoracic aorta. There are diffuse degenerative changes of the visualized thoracic spine. Prior screw fixation of the proximal left humerus. There is no demonstrated abnormality of the visualized soft tissue structures of the upper abdomen. RAD/Chest 1 View (Portable) IMPRESSION: No acute abnormality is seen. Electronically Signed: Pepito De Leon MD at 10:44 EDT ,
--- NOTE | 2022-12-14 10:16 | EDS_ITS ---
HPI History of Present Illness Chief Complaint: Shortness of Breath Narrative Narrative: 82-year-old female past medical history of remote viral encephalopathy with cognitive defects presents with multiple somatic complaints. Of note, she had strokes recently diagnosed, 1 on each side of her brain according to her daughter. She has residual left-sided weakness mainly in the face, but presents because ever since her return from the hospital a week or 2 ago, she has had problems with always being cold. On Tuesday, they thought maybe she had influenza because she had a fever. Additionally, the Lily statin that she started was causing muscle cramps in her bilateral lower extremities. Her daughter started co-Q10. She is also starting Clopra gel and hydralazine which is making her nauseated. She states that she feels short of breath at times. Her daughter noticed this and that the patient was panting. She has not really had a cough. She had a fever that resolved 4 days ago. She is still having body aches, muscle aches, and fatigue. She denies any exacerbating or belgica viating factors. [facility] Medical History Anxiety Anxiety Asthma Depression Depression Dysarthria Encephalitis Facial droop HTN (hypertension) Hypertension Insomnia Non-smoker Osteoporosis Osteoporosis Uterine prolapse Home Medications aspirin 81 mg chewable tablet (Aspirin Childrens) 81 mg PO DAILY heart health 11/27/22 [History Last Taken 11/27/22 10:00] calcium carbonate 600 mg-vitamin D3 5 mcg (200 unit) capsule (Calcium 600 + D(3)) 1 cap PO DAILY supplement 11/27/22 [History Last Taken 11/27/22 10:00] furosemide 20 mg tablet 20 mg PO DAILY diuretic 11/27/22 [History Last Taken 11/27/22 10:00] lisinopril 20 mg tablet 20 mg PO BID blood pressure 11/27/22 [History Last Taken 11/27/22 10:00] atenolol 50 mg tablet 75 mg PO DAILY bp #30 tabs 11/29/22 [Rx Last Taken Unknown] clopidogrel 75 mg tablet 75 mg PO DAILY #30 tabs 11/29/22 [Rx Last Taken Unknown] hydralazine 50 mg tablet 50 mg PO TID #90 tabs 11/29/22 [Rx Last Taken Unknown] sennosides 8.6 mg-docusate sodium 50 mg tablet (Stool Softener-Stimulant L axative) 2 tab PO BID PRN PRN Constipation #0 tabs 11/29/22 [Rx Last Taken Unknown] Allergy/AdvReac Type Severity Reaction Status Date / Time amlodipine AdvReac Intermediate Other Verified 11/27/22 17:24 Family History Other Diabetes Hypertension Surgical History History of cholecystectomy Social History Smoking Status: Never smoker alcohol intake: never substance use type: does not use ROS ROS ED ROS Narrative Constitutional: Positive recent fever, no chills. Positive fatigue HEENT: No sore throat. No neck pain. No loss of vision. No rhinorrhea. Cardiovascular: No chest pain. No palpitations. No pedal edema. Respiratory: Occasional cough, positive shortness of breath. Abdominal: Epigastric abdominal pain. Positive nausea. No vomiting. Genitourinary: No dysuria. No hematuria. Musculoskeletal: Multiple myalgias and arthralgias especially of lower legs thought secondary to Crestor. Positive low back pain. Neurologic: No headaches. No dizziness. No lightheadedness. Skin: No rash. No change in color. Psychiatric: No depression. No anxiety. EXAM Physical Exam Const Vital Signs: 12/14/22 09:59 12/14/22 10:11 12/14/22 10:12 Temperature 97 F L Temperature Source Temporal Pulse Rate 86 90 Respiratory Rate 14 16 Respiratory Effort Normal Non-Labored Respiratory Depth Normal Respiratory Pattern Normal Blood Pressure 172/97 H 183/95 H Blood Pressure Mean 122 124 Pulse Ox 98 97 Oxygen Delivery Method Room Air Room Air Room Air 12/14/22 12:27 Temperature Temperature Source Pulse Rate 87 Respiratory Rate 15 Respiratory Effort Respiratory Depth Respiratory Pattern Blood Pressure 172/75 H Blood Pressure Mean 107 Pulse Ox 96 Oxygen Delivery Method Room Air MDM MDM MDM Narrative Medical decision making narrative: Comprehensive work-up was pursued. I will check a CPK to look for elevation secondary to statin drug. She could have COVID or influenza based on her symptoms this weekend. Regarding her low back pain she may have a urinary tract infection. As far as her shortness of breath is concerned, I will obtain a chest x-ray to rule out pneumonia or pneumothorax. This is less likely because her pulse ox is normal at 97 to 98% on room air. EKG was obtained and interpreted by myself which demonstrates normal sinus rhythm at 86 bpm without ectopy or acute ST changes. No STEMI. No significant change from EKG dated 01/13/2023. She has not an atrial fibrillation. She currently has a heart monitor on. I reviewed her laboratory work and she has a normal white count of 4.4, hemogl obin stable at 11.6, hematocrit 35.0. She has thrombocytopenia of 62. This may be secondary to her medication and antiplatelet therapy, but I will refer her to hematology on-call, Dr. Osman. In review of her electrolytes, potassium low at 3.2 which was replaced orally with 40 mill equivalents. Glucose elevated at 118 but she has normal anion gap of 6. LFTs show AST and ALT elevated at 77 both respectively which I think is nonspecific. Given the patient's shortness of breath and reported panting, chest x-ray was obtained and interpreted by myself as no acute process. I reviewed the radiology report which confirms my independent interpretation. Her daughter was concerned about a heart attack, but based on a normal EKG, I see no evidence of STEMI. I obtained a high- sensitivity troponin which is normal/12. I do feel that this is greater than a 6-hour troponin as this was added on later. Urinalysis is negative for infection. Respiratory swabs for COVID and influenza are also negative. At this point in time, I am unsure as to the cause of the patient's reported shortness of breath. Once again she has a normal pulse ox. She has no pneumonia or pneumothorax. Regarding her body aches, I obtained and reviewed a CPK which is within normal limits. She had epigastric pain but her lipase is normal at 133. Her daughter thinks that it is after she started hydralazine that is causing her nausea and epigastric pain. She may have a pill gastritis. She will take [id number] medications as needed and follow-up with gastroenterology. At this point in time, I feel she can be discharged safely home with follow-up. She can call her primary care provider regarding other referrals to gastroenterology and/or hematology. Return instructions to the emergency department were reviewed. Disposition is discharged home in stable condition. History & Record Review Discussion w/independent historian: Patient and Family Additional record(s) reviewed:: Prior ED visit Lab Data Attestation: I reviewed the patient's lab results. Labs: Laboratory Results - last 24 hr 12/14/22 12/14/22 12/14/22 10:20 10:20 11:50 WBC 4.4 RBC 3.81 L Hgb 11.6 L Hct 35.0 L MCV 91.9 MCH 30.4 MCHC 33.1 RDW Std Deviation 44.7 H RDW Coeff of Aurelio 13.2 Plt Count 62 L MPV 11.1 Immature Gran % (Auto) 0.900 Neut % (Auto) 66.2 Lymph % (Auto) 18.9 L Moffat % (Auto) 11.3 H Eos % (Auto) 1.6 Baso % (Auto) 1.1 H Absolute Neuts (auto) 2.9 Absolute Lymphs (auto) 0.84 Nucleated RBC % 0 Differential Comment SCANNED Sodium 141 Potassium 3.2 L Chloride 106 Carbon Dioxide 29.0 Anion Gap 6 BUN 14 Creatinine 0.62 Estim Creat Clear Calc 36.50 Est GFR (MDRD) Af Amer 119 Est GFR (MDRD) Non-Af 98 BUN/Creatinine Ratio 22.6 H Glucose 118 H Calcium 8.6 Total Bilirubin 0.60 AST 77 H ALT 77 H Alkaline Phosphatase 100 Total Creatine Kinase 52 Troponin I High Sens 12 Total Protein 6.9 Albumin 3.4 Globulin 3.5 Albumin/Globulin Ratio 1.0 Lipase 133 Urine Color Urine Clarity Urine pH Ur Specific [place] Urine Protein Urine Glucose (UA) Urine Ketones Urine Occult Blood Urine Nitrite Urine Bilirubin Urine Urobilinogen Ur Leukocyte Esterase Urine RBC Urine WBC Ur Squamous Epith Cells Urine Bacteria Urine Mucus 12/14/22 12:20 WBC RBC Hgb Hct MCV MCH MCHC RDW Std Deviation RDW Coeff of Aurelio Plt Count MPV Immature Gran % (Auto) Neut % (Auto) Lymph % (Auto) [place]at % (Auto) Eos % (Auto) Baso % (Auto) Absolute Neuts (auto) Absolute Lymphs (auto) Nucleated RBC % Differential Comment Sodium Potassium Chloride Carbon Dioxide Anion Gap BUN Creatinine Estim Creat Clear Calc Est GFR (MDRD) Af Amer Est GFR (MDRD) Non-Af BUN/Creatinine Ratio Glucose Calcium Total Bilirubin AST ALT Alkaline Phosphatase Total Creatine Kinase Troponin I High Sens Total Protein Albumin Globulin Albumin/Globulin Ratio Lipase Urine Color Yellow Urine Clarity Clear Urine pH 7.0 Ur Specific Woodward 1.010 Urine Protein 30 H Urine Glucose (UA) Normal Urine Ketones Negative Urine Occult Blood 50 H Urine Nitrite Negative Urine Bilirubin Negative Urine Urobilinogen Normal Ur Leukocyte Esterase 25 H Urine RBC 0 SEEN Urine WBC 0-5 SEEN Ur Squamous Epith Cells 0 SEEN Urine Bacteria RARE Urine Mucus 0 SEEN Radiography Diagnostic Testing: Clinical Impression(s) from Imaging Studies Chest X-Ray 12/14/22 10:14 IMPRESSION: No acute abnormality is seen. Electronically Signed: Pepito De Leon MD at 10:44 EDT , Discharge Plan Triage Chief Complaint: Shortness of Breath ED Provider: Dima Curran Dx/Rx/DC Orders Clinical Impression: SOB (shortness of breath), Body aches, Abdominal pain, epigastric, Gastritis, Thrombocytopenia Instructions: ED Dyspnea, ED Gastritis (Adult), ED Pain, Acute, Uncertain Cause, ED Epigastric Pain Uncertain Cause Prescriptions: No Action lisinopril 20 mg tablet 20 mg PO BID Label Comments: TAKE 1 TABLET BY MOUTH TWICE A DAY aspirin [Aspirin Childrens] 81 mg tablet,chewable 81 mg PO DAILY Label Comments: once a day furosemide 20 mg tablet 20 mg PO DAILY Label Comments: TAKE 1 TABLET BY MOUTH EVERY DAY Calcium 600 + D(3) 600 mg-5 mcg (200 unit) Capsule 1 cap PO DAILY sennosides-docusate sodium [Stool Softener-Stimulant Laxat] 8.6-50 mg Tablet 2 tab PO BID PRN PRN (Reason: Constipation) Qty: 0 0RF clopidogrel 75 mg Tablet 75 mg PO DAILY Qty: 30 0RF hydralazine 50 mg tablet 50 mg PO TID Qty: 90 2RF Rx Instructions: Hold for SBP less than 130 mmHg atenolol 50 mg tablet 75 mg PO DAILY Qty: 30 0RF Label Comments: TAKE 1 TABLET BY MOUTH EVERY DAY Primary Care Provider: Isai Hercules Referrals: Leonidas Osman MD [Med Staff - Active Staff] - 3-5 Days Isai Hercules MD [Primary Care Provider] - 3-5 Days Activity Restrictions/Additional Instructions: Your platelet count was low. You may have the propensity to bleed more. This may be a side effect of your medications. Follow-up with hematology/oncology, Dr. Osman. Disposition Disposition: Home, Self Care
[2022-12-14 10:34] LABS: Absolute Lymphocyte Count 0.84 X10^3/uL (0.83-4.51); Absolute Neutrophil Count 2.9 X10^3/uL (2.0-7.7); Basophil# 0.05 X10^3/uL; Basophil% 1.1 % (0-1); Eosinophil# 0.07 X10^3/uL; Eosinophils% 1.6 % (0-5); Hemoglobin 11.6 g/dL (12.0-15.0); Lymphocyte # 0.84 X10^3/ul (0.83-4.51); Lymphocyte % 18.9 % (19-41); Mean Corp Hgb Conc 33.1 g/dL (32-36); Mean Corpuscular Hgb 30.4 pg (27.0-32.0); Mean Corpuscular Volume 91.9 fL (81-99); Mean Platelet Vol. 11.1 fl (6.2-12.0); Monocyte% 11.3 % (0-10); NRBC Flagged by Analyzer 0 % (0-5); Neutrophil # 2.94 X10^3/uL (2.7-7.7); Neutrophil % 66.2 % (47-70); POSITIVE COUNT YES; Platelet Count 62 K/mm3 (150-450); RBC Distribution Width CV 13.2 % (11.6-14.6); RBC Distribution Width SD 44.7 fl (35.1-43.9); Red Blood Count 3.81 M/mm3 (4.2-5.4); White Blood Count 4.4 K/mm3 (4.4-11.0)
[2022-12-14 10:36] LABS: Differential Indicated SCAN CRITERIA MET
[2022-12-14 10:47] LABS: AST(SGOT) 77 U/L (15-37); Alanine Aminotransfer ALT/SGPT 77 U/L (13-56); Albumin, Serum 3.4 g/dL (3.2-5.0); Alkaline Phosphatase 100 U/L (45-117); Anion Gap 6 (5-15); BUN 14 mg/dL (7-18); BUN/Creat Ratio 22.6 RATIO (10-20); CPK Total, Creatine Kinase 52 U/L (26-192); Calcium,Total 8.6 mg/dL (8.5-10.1); Chloride 106 mmol/L (98-107); Creatinine, Serum 0.62 mg/dL (0.55-1.02); EST Glomerular Filtration Rate 98 mL/min (>60); Est Glom Filt Rate - Afr Amer 119 mL/min (>60); Globulin 3.5 g/dL (2.2-4.2); Glucose 118 mg/dL (74-106); Lipase 133 U/L (73-393); Potassium 3.2 mmol/L (3.5-5.1); Protein, Total 6.9 g/dL (6.4-8.2); Sodium Level 141 mmol/L (136-145)
[2022-12-14 11:19] LABS: Differential Comment SCANNED
[2022-12-14] MEDS: Potassium Chloride Oral Tablet 20 MEQ 40 MEQ PO (11:54)
[2022-12-14 12:20] LABS: Troponin-I HS 12 pg/mL (3.0-54.0)
[2022-12-14 12:27] VITALS: BP 172/75; PULSE 87; RESP 15; O2SAT 96
[2022-12-14 12:28] LABS: Mucous, Urine 0 SEEN /hpf (<or=2+); Red Blood Cells-Urine 0 SEEN /hpf (0-5); Squamous Epithelial Cells - UA 0 SEEN /hpf (5-10)
[2022-12-14 12:59] LABS: Color, Urine Yellow (Yellow); Glucose, Dipstick Normal (Normal); Ketone-Dipstick Negative (Negative); Leukocyte Esterase-Dipstick 25 /ul (Negative); Nitrite-Dipstick Negative (Negative); Occult Blood-Urine 50 /ul (Negative); Protein-Dipstick 30 mg/dl (Negative); Urine Bilirubin Dipstick Negative (Negative); Urine Clarity Clear (Clear); Urine Urobilinogen Normal (Normal)
[2022-12-14 13:16] LABS: White Blood Cells 0-5 SEEN /hpf (0-5)
[2022-12-14 13:17] LABS: Bacteria RARE /hpf (None Seen)
[2022-12-14 14:20] VITALS: BP 184/75; PULSE 86; RESP 16; O2SAT 98
--- NOTE | 2022-12-14 14:21 | ED.RN ---
THIS RN AT BEDSIDE WITH PT. THIS RN REVIEWS PAPERWORK WITH PT AND PT DAUGHTER. DAUGHTER ON THE PHONE CALLING PCP FOR FOLLOW UP APPT. PT EDUCATED ON PAPERWORK. VERBALIZES UNDERSTANDING. DENIES FURTHER QUESTIONS. PT VERBALIZES FRUSTRATION WITH [facility]ALTH[facility]ARE [facility] AND NOT BEING ABLE TO GET A TIMELY APPT WITH PCP AT TIMES. THIS RN OFFERS EMOTIONAL SUPPORT TO PT AND DAUGHTER. PT GIVEN WATER TO TAKE HER HOME MEDICATIONS.
== END 2022-12-14 14:24 | disposition home or self-care (01) ==
PROVIDERS: Emergency Provider Emergency Medicine; PCP Family Medicine; Visit Provider Emergency Medicine
DX: R06.02 Shortness of breath (principal); D69.6 Thrombocytopenia, unspecified; K29.70 Gastritis, unspecified, without bleeding; M54.50 Low back pain, unspecified; R50.9 Fever, unspecified; I10 Essential (primary) hypertension; R10.13 Epigastric pain; Z86.73 Personal history of transient ischemic attack (TIA), and cerebral infarction without residual deficits
CPT/HCPCS: 71045; 80053; 81001; 82550; 83690; 84484; 85025; 87428; 93005; 99285; J7040; A4216

== ENCOUNTER 2022-12-16 09:42 | Emergency (ER) | payer MEDICARE, OTHER, SELFPAY ==
[2022-12-16 09:45] VITALS: BP 189/92; PULSE 88; RESP 22; TEMP 36.5; O2SAT 98; BMI 12.3
--- NOTE | 2022-12-16 10:15 | EKG12_ITS ---
Test Reason : CP Blood Pressure : / mmHG Vent. Rate : 089 BPM Atrial Rate : 089 BPM P-R Int : 154 ms QRS Dur : 068 ms QT Int : 348 ms P-R-T Axes : 062 006 016 degrees QTc Int : 423 ms Sinus rhythm with Premature atrial complexes Otherwise normal ECG Confirmed by ANASTASIYA LANDAVERDE, JOSSUE ([id number]), magazine editor MARYSOL IZAGUIRRE ([id number]) on 12/17/2022 10:50:03 AM Referred By: KECIA Confirmed By:JOSSUE LANGFORD MD
--- NOTE | 2022-12-16 10:20 | RAD_ITS ---
STUDY: X-RAY CHEST REASON FOR EXAM: Female, 82 years old. Chest pain TECHNIQUE: Single AP portable view of the chest. COMPARISON: Comparison is made with prior study December 14, 2022. FINDINGS: EKG electrodes are seen. The lungs are clear and expanded. Stable calcified granulomas in both lungs. No acute infiltrate is seen. There is no demonstrated pleural abnormality. Normal size heart. Calcified left hilar lymph nodes. Normal visualized pulmonary arteries. There is atherosclerotic tortuosity of the aortic arch and descending thoracic aorta. There are diffuse degenerative changes of the visualized thoracic spine. Normal visualized ribs, clavicles, and shoulders. There is no demonstrated abnormality of the visualized soft tissue structures of the upper abdomen. RAD/Chest 1 View (Portable) IMPRESSION: No acute abnormality is seen. Electronically Signed: Pepito De Leon MD at 11:04 EDT ,
[2022-12-16 10:33] LABS: Absolute Lymphocyte Count 0.99 X10^3/uL (0.83-4.51); Absolute Neutrophil Count 3.9 X10^3/uL (2.0-7.7); Basophil# 0.07 X10^3/uL; Basophil% 1.3 % (0-1); Eosinophil# 0.02 X10^3/uL; Eosinophils% 0.4 % (0-5); Hematocrit 32.6 % (37-47); Lymphocyte # 0.99 X10^3/ul (0.83-4.51); Lymphocyte % 17.9 % (19-41); Mean Corp Hgb Conc 33.7 g/dL (32-36); Mean Corpuscular Hgb 30.6 pg (27.0-32.0); Mean Corpuscular Volume 90.6 fL (81-99); Mean Platelet Vol. 11.6 fl (6.2-12.0); Monocyte# 0.43 X10^3/uL; Monocyte% 7.8 % (0-10); NRBC Flagged by Analyzer 0 % (0-5); Neutrophil # 3.94 X10^3/uL (2.7-7.7); Platelet Count 115 K/mm3 (150-450); RBC Distribution Width CV 13.1 % (11.6-14.6); RBC Distribution Width SD 42.8 fl (35.1-43.9); White Blood Count 5.5 K/mm3 (4.4-11.0)
[2022-12-16 10:42] VITALS: BP 164/107; PULSE 91; RESP 16; O2SAT 97
[2022-12-16 10:48] LABS: AST(SGOT) 74 U/L (15-37); Alanine Aminotransfer ALT/SGPT 91 U/L (13-56); Albumin, Serum 3.3 g/dL (3.2-5.0); Alkaline Phosphatase 96 U/L (45-117); Anion Gap 8 (5-15); BUN 16 mg/dL (7-18); BUN/Creat Ratio 36.3 RATIO (10-20); Bilirubin, Direct 0.28 mg/dL (0.00-0.30); Calcium,Total 8.4 mg/dL (8.5-10.1); Chloride 94 mmol/L (98-107); Creatinine, Serum 0.44 mg/dL (0.55-1.02); EST Glomerular Filtration Rate 145 mL/min (>60); Est Glom Filt Rate - Afr Amer 176 mL/min (>60); Estimated Creatinine Clearance 22.75 ml/min; Globulin 3.6 g/dL (2.2-4.2); Glucose 119 mg/dL (74-106); Lipase 118 U/L (73-393); Potassium 3.4 mmol/L (3.5-5.1); Protein, Total 6.9 g/dL (6.4-8.2); Sodium Level 130 mmol/L (136-145); Troponin-I HS (w/2H Reflex) 8 pg/mL (3.0-54.0)
--- NOTE | 2022-12-16 11:43 | ED.VIS.CHEST ---
HPI History of Present Illness Chief Complaint: Chest Pain Narrative Narrative: 82-year-old female presenting with epigastric pain/back pain. It does radiate somewhat into the chest. Patient states this started overnight. She was seen in the ER a few days ago for similar symptoms. Her work-up was normal. At this point it was presumed that her hydralazine was causing irritation to the stomach and this was held. Patient said similar symptoms last night even though she has not taken hydralazine. She notes that her blood pressure has been a little higher because she is not taking it. She states that Dr. Hercules saw her in follow-up and has her on atenolol. Since she had recurrent symptoms she was referred back to the ER. Patient reports to me that she had Adam Max yesterday in the middle of the day for lunch. She states it was chicken pot pie. She states her daughter made her some past but did not want to eat the red sauce because her stomach was upset so she opted for a tomato and some barbecue potato chips. She woke up in the night with epigastric pain again similar to before. Patient is not on a PPI or anything that would help acid reflux/GERD/gastritis. [facility] Medical History Anxiety Anxiety Asthma Depression Depression Dysarthria Encephalitis Facial droop HTN (hypertension) Hypertension Insomnia Non-smoker Osteoporosis Osteoporosis Uterine prolapse Home Medications aspirin 81 mg chewable tablet (Aspirin Childrens) 81 mg PO DAILY heart health 11/27/22 [History Last Taken 11/27/22 10:00] calcium carbonate 600 mg-vitamin D3 5 mcg (200 unit) capsule (Calcium 600 + D(3)) 1 cap PO DAILY supplement 11/27/22 [History Last Taken 11/27/22 10:00] furosemide 20 mg tablet 20 mg PO DAILY diuretic 11/27/22 [History Last Taken 11/27/22 10:00] lisinopril 20 mg tablet 20 mg PO BID blood pressure 11/27/22 [History Last Taken 11/27/22 10:00] atenolol 50 mg tablet 75 mg PO DAILY bp #30 tabs 11/29/22 [Rx Last Taken Unknown] clopidogrel 75 mg tablet 75 mg PO DAILY #30 tabs 11/29/22 [Rx Last Taken Unknown] hydralazine 50 mg tablet 50 mg PO TID #90 tabs 11/29/22 [Rx Last Taken Unknown] sennosides 8.6 mg-docusate sodium 50 mg tablet (Stool Softener-Stimulant Laxative) 2 tab PO BID PRN PRN Constipation #0 tabs 11/29/22 [Rx Last Taken Unknown] omeprazole 40 mg capsule,delayed release 40 mg PO DAILY #30 caps 12/16/22 [Rx Last Taken Unknown] Allergy/AdvReac Type Severity Reaction Status Date / Time amlodipine AdvReac Intermediate Other Verified 11/27/22 17:24 Family History Other Diabetes Hypertension Surgical History History of cholecystectomy Social History Smoking Status: Never smoker alcohol intake: never substance use type: does not use ROS ROS ED Constitutional Constitutional ED: Denies chills or fever(s) Eyes Eyes: Denies blurry vision or change in vision ENT ENT ED: Denies rhinorrhea or sore throat Cardiovascular Cardiovascular: Reports as per HPI Respiratory/Chest Respiratory/Chest: Denies cough or dyspnea Gastrointestinal Gastrointestinal: Reports abdominal pain, nausea and other Details: Epigastric pain Genitourinary Genitourinary ED: Denies dysuria or hematuria Musculoskeletal Musculoskeletal: Denies arthralgias or back pain Integumentary Denies abscess or Abrasions Neurologic Neurologic: Denies headache(s) or paresthesias Psychiatric Psychiatric: Denies anxiety or depression EXAM Physical Exam Const Vital Signs: 12/16/22 09:45 12/16/22 10:27 12/16/22 10:27 Temperature 97.7 F L Temperature Source Temporal Pulse Rate 88 Respiratory Rate 22 H Respiratory Effort Normal Non-Labored Blood Pressure 189/92 H Blood Pressure Mean 124 Pulse Ox 98 Oxygen Delivery Method Room Air Room Air 12/16/22 10:42 Temperature Temperature Source Pulse Rate 91 Respiratory Rate 16 Respiratory Effort Blood Pressure 164/107 H Blood Pressure Mean 126 Pulse Ox 97 Oxygen Delivery Method Room Air Positive well nourished General Appearance ED: NAD HEENT Reports moist mucous membranes and dry mucous membranes normocephalic and atraumatic Mouth ED: Yes dry mucous membranes Mouth: dry mucous membranes Eyes PERRL and EOMs intact bilaterally Neck no lymphadenopathy Chest Wall inspection of chest normal and palpation of chest normal Resp normal respiratory effort and clear to auscultation bilaterally Auscultation: Negative for rales, rhonchi or wheezes Cardio regular rate and regular rhythm GI GI Narrative: Mild epigastric pain Back/Spine no CVA tenderness Neuro oriented x3 and CN's II-XII intact bilaterally Sensorium / Orientation: awake and alert Motor Exam: strength 5/5 throughout Psych mental status grossly normal Skin no rashes or lesions noted and no wounds Heart Score History: Slightly/Non-Suspicious ECG: Normal Age: >/= 65 years Risk Factors: 1 or 2 Risk Factors Troponin: </= Normal Limit Score: 3 MDM MDM MDM Narrative Medical decision making narrative: Patient presenting with epigastric pain/chest pain. It sounds as if she ate some stuff last evening that would upset her stomach. She reports that she was given something by squad that helped her stomach pain. No medications written on the report. She states it is oral. I believe it is likely nitroglycerin that she was given. She feels improved at this point. Differential diagnosis at this point is ACS, gastritis, peptic ulcer disease, pancreatitis. Patient with a normal cardiac work-up just a few days ago. EKG on my interpretation is normal sinus rhythm with a ventricular rate of 89 bpm without sign of ischemic change or dysrhythmia. Chest x-ray was obtained and shows no acute process on my interpretation. CBC shows stable white blood cell count and hemoglobin. Sodium slightly low at 130, potassium 3.4 point, glucose 119 without anion gap. Creatinine normal at 0.44. AST and ALT are elevated but similar to previous. Given her symptoms and negative work-up I believe she is stable for discharge. I will try to touch base with Dr. Hercules. After speaking with him he recommended omeprazole. This was provided. Patient and daughter informed of foods to avoid. Impression: 1. Chest pain 2. Gastric pain 3. Gastritis Lab Data Labs: Laboratory Results - last 24 hr 12/16/22 12/16/22 09:50 09:50 WBC 5.5 RBC 3.60 L Hgb 11.0 L Hct 32.6 L MCV 90.6 MCH 30.6 MCHC 33.7 RDW Std Deviation 42.8 RDW Coeff of Aurelio 13.1 Plt Count 115 L MPV 11.6 Immature Gran % (Auto) 1.600 H Neut % (Auto) 71.0 H Lymph % (Auto) 17.9 L [place] % (Auto) 7.8 Eos % (Auto) 0.4 Baso % (Auto) 1.3 H Absolute Neuts (auto) 3.9 Absolute Lymphs (auto) 0.99 Nucleated RBC % 0 Sodium 130 L Potassium 3.4 L Chloride 94 L Carbon Dioxide 28.0 Anion Gap 8 BUN 16 Creatinine 0.44 L Estim Creat Clear Calc 22.75 Est GFR (MDRD) Af Amer 176 Est GFR (MDRD) Non-Af 145 BUN/Creatinine Ratio 36.3 H Glucose 119 H Calcium 8.4 L Total Bilirubin 0.80 Direct Bilirubin 0.28 AST 74 H ALT 91 H Alkaline Phosphatase 96 Troponin I High Sens 8 Total Protein 6.9 Albumin 3.3 Globulin 3.6 Lipase 118 Radiography Diagnostic Testing: Clinical Impression(s) from Imaging Studies Chest X-Ray 12/16/22 10:20 IMPRESSION: No acute abnormality is seen. Electronically Signed: Pepito De Leon MD at 11:04 EDT , Discharge Plan Triage Chief Complaint: Chest Pain ED Provider: Geraldo Medina Dx/Rx/DC Orders Instructions: ED Gastritis (Adult) Prescriptions: New omeprazole 40 mg capsule,delayed release(DR/EC) 40 mg PO DAILY Qty: 30 0RF No Action lisinopril 20 mg tablet 20 mg PO BID Label Comments: TAKE 1 TABLET BY MOUTH TWICE A DAY aspirin [Aspirin Childrens] 81 mg tablet,chewable 81 mg PO DAILY Label Comments: once a day furosemide 20 mg tablet 20 mg PO DAILY Label Comments: TAKE 1 TABLET BY MOUTH EVERY DAY Calcium 600 + D(3) 600 mg-5 mcg (200 unit) Capsule 1 cap PO DAILY sennosides-docusate sodium [Stool Softener-Stimulant Laxat] 8.6-50 mg Tablet 2 tab PO BID PRN PRN (Reason: Constipation) Qty: 0 0RF clopidogrel 75 mg Tablet 75 mg PO DAILY Qty: 30 0RF hydralazine 50 mg tablet 50 mg PO TID Qty: 90 2RF Rx Instructions: Hold for SBP less than 130 mmHg atenolol 50 mg tablet 75 mg PO DAILY Qty: 30 0RF Label Comments: TAKE 1 TABLET BY MOUTH EVERY DAY Primary Care Provider: Isai Hercules Referrals: Isai Hercules MD [Primary Care Provider] - Disposition Disposition: Home, Self Care Discharge Date/Time: 12/16/22 12:13
[2022-12-16 12:26] LABS: Reflex Troponin-HS? (from REC) Y
== END 2022-12-16 12:13 | disposition home or self-care (01) ==
PROVIDERS: Emergency Provider Student in an Organized Health Care Education/Training Program; PCP Family Medicine; Visit Provider Student in an Organized Health Care Education/Training Program
DX: R07.9 Chest pain, unspecified (principal); K29.70 Gastritis, unspecified, without bleeding; M54.9 Dorsalgia, unspecified; I10 Essential (primary) hypertension; Z79.82 Long term (current) use of aspirin; Z90.49 Acquired absence of other specified parts of digestive tract
CPT/HCPCS: 71045; 80048; 80076; 83690; 84484; 85025; 93005; 99285; A4216

== ENCOUNTER 2022-12-17 03:25 | Emergency (ER) | payer MEDICARE, OTHER, SELFPAY ==
[2022-12-17 03:26] VITALS: BP 189/91; PULSE 77; RESP 18; TEMP 36.6; O2SAT 96; BMI 27.3
--- NOTE | 2022-12-17 03:40 | CT_ITS ---
We are attempting to reach an attending provider to discuss findings. An addendum with communication details will be sent when the communication is complete. INDICATION: pain, HTN EXAMINATION: CTA CHEST, ABDOMEN AND PELVIS WITH CONTRAST - TECHNIQUE: A CTA of the chest, abdomen, and pelvis is obtained with sagittal and coronal reconstructed MIP views. Three-dimensional surface rendered sequence of the thoracic and abdominal aorta was obtained. A radiation dose optimization technique was used for this scan. mL of Isovue-[id number]. Oral contrast: None. COMPARISON: CT chest with contrast October 28, 2016 FINDINGS: CT CHEST: THORACIC AORTA: There is partially calcified. There is no aneurysmal dilatation is no dissection. ABDOMINAL AORTA: There is tortuous. There is minimal calcification of the abdominal aorta. LUNGS: There is a stable calcified granuloma in the left upper lobe. There is a pulmonary nodule right lower lobe measuring 5.4 mm not seen on the prior study October 28, 2016. MEDIASTINUM: Calcification in the AP window. There are reactive appearing AP window lymph nodes measuring up to 1.4 cm new since prior study. HEART: There is mild cardiac enlargement there is a trace pericardial effusion. There is trace coronary artery calcification. There is a visualized lymph node in the pericardial fat adjacent to the liver measuring 8.7 mm larger than the prior study measured approximately [address] ABDOMEN AND PELVIS: LIVER: The liver is fatty infiltrated. GALLBLADDER: The CBD is normal. The gallbladder has been surgically removed. SPLEEN: There are punctate calcifications in the gallbladder compatible with prior granulomatous disease. PANCREAS: No masses or inflammation. ADRENAL GLANDS: Normal. KIDNEYS AND URETERS: There is a small cyst right kidney measuring 4.3 mm. No hydronephrosis. There is a tiny left renal cyst. There is no hydronephrosis. No hydronephrosis or nephrolithiasis. STOMACH: Normal. SMALL BOWEL: No abnormal distention of the small bowel. MESENTERY: A few nonspecific small mesenteric lymph nodes. COLON: There is mild to moderate stool within the colon. There is visualized diverticulosis without visualized diverticulitis. There is a visualized enhancing mass measuring 1.7 x 1.6 cm with adjacent enhancement and are potentially a small focus of hemorrhage. There is a visualized mildly distended appearance of the small bowel proximal to this level. Which appears to be extending from the medial side of the distal terminal ileum image #57 series 604. The colon otherwise is normal. There is a large fatty ileocecal valve. There is also a similar-appearing mass in the right lower quadrant image #58. APPENDIX: The appendix is visualized and normal. IVC: Normal. RETROPERITONEUM: No retroperitoneal lymphadenopathy. There are multiple reactive appearing retroperitoneal lymph nodes measuring up to 1.2 and 1.1 cm on the right. There are small mesenteric lymph nodes. There is one measuring up to 9.2 mm and one measuring 1.4 cm in the right lower quadrant. PELVIC STRUCTURES: Normal bladder. The uterus appears mildly atrophied. SOFT TISSUES ABDOMEN: There is a low-lying appearance of the uterus and the bladder. See image #89 of the sagittal views demonstrating what appears to be partial prolapse of the uterus and the bladder and what may be portion of the rectum. SOFT TISSUE CHEST: The extrathoracic soft tissues are normal. BONES: Degenerative changes in the thoracolumbar spine. CT/CTA Chst, Abd, Pel W and/or WO IMPRESSION: No aneurysmal dilatation no dissection no pulmonary embolism. There are visualized reactive appearing lymph nodes which are enlarged since the prior study within the mediastinum. There is a visualized pulmonary nodule right lower lobe measuring 5.4 mm. There is evidence of prior granulomatous disease. There is no visualized aneurysmal dilatation or dissection of the abdominal aorta. Within the right lower quadrant abutting the distal small bowel there is a visualized focal exophytic appearing enhancing 1.7 x 1.6 cm mass, with a possible trace amount of adjacent blood in the lumen image #64 and 67 series 3. With adjacent similar-appearing nodule in the right lower quadrant on image #56 suspicious for a possible reactive or metastatic lymph node. Where this mass is located could potentially cause a distal small bowel obstruction at this time it does not appear to be particularly obstructing. There is hyperdense material within the cecum which may represent merely retained contrast from a prior procedure. Mild to moderate constipation diverticulosis no visualized diverticulitis. Multiple small reactive lymph nodes in the retroperitoneum and in the mesentery. Findings are highly suspicious for pelvic floor laxity with a low-lying appearance of the uterus and bladder and to lesser degree the rectum. No appendicitis. Status post cholecystectomy. Diverticulosis or diverticulitis. Electronically Signed: Nimisha Guevara MD at 5:02 EDT ,
[2022-12-17] MEDS: fentaNYL 100 MCG/2 ML Ampul 25 MCG IV (03:47)
[2022-12-17 03:55] VITALS: BP 158/68; PULSE 76; RESP 12; O2SAT 97
[2022-12-17 04:02] LABS: Absolute Lymphocyte Count 0.97 X10^3/uL (0.83-4.51); Absolute Neutrophil Count 4.4 X10^3/uL (2.0-7.7); Basophil# 0.08 X10^3/uL; Basophil% 1.3 % (0-1); Eosinophil# 0.04 X10^3/uL; Eosinophils% 0.7 % (0-5); Hematocrit 34.3 % (37-47); Hemoglobin 11.5 g/dL (12.0-15.0); Lymphocyte # 0.97 X10^3/ul (0.83-4.51); Mean Corp Hgb Conc 33.5 g/dL (32-36); Mean Corpuscular Hgb 29.9 pg (27.0-32.0); Mean Corpuscular Volume 89.3 fL (81-99); Mean Platelet Vol. 10.5 fl (6.2-12.0); Monocyte# 0.46 X10^3/uL; Monocyte% 7.6 % (0-10); NRBC Flagged by Analyzer 0 % (0-5); Neutrophil # 4.41 X10^3/uL (2.7-7.7); Neutrophil % 72.6 % (47-70); Platelet Count 150 K/mm3 (150-450); RBC Distribution Width CV 13.1 % (11.6-14.6); RBC Distribution Width SD 42.8 fl (35.1-43.9); Red Blood Count 3.84 M/mm3 (4.2-5.4); White Blood Count 6.1 K/mm3 (4.4-11.0)
[2022-12-17 04:21] LABS: Anion Gap 7 (5-15); BUN 15 mg/dL (7-18); BUN/Creat Ratio 24.9 RATIO (10-20); Calcium,Total 8.5 mg/dL (8.5-10.1); Chloride 97 mmol/L (98-107); EST Glomerular Filtration Rate 101 mL/min (>60); Est Glom Filt Rate - Afr Amer 123 mL/min (>60); Glucose 124 mg/dL (74-106); Potassium 3.2 mmol/L (3.5-5.1); Sodium Level 134 mmol/L (136-145); Troponin-I HS 7 pg/mL (3.0-54.0)
--- NOTE | 2022-12-17 04:29 | EDS_ITS ---
HPI History of Present Illness Chief Complaint: Hypertension Detail of Chief Complaint: Hypertension, back pain Informant: patient Onset/Context/Timing Onset: Days Context: Gradual Onset Timing: Waxes and wanes Narrative Narrative: Patient present secondary to hypertension and right lower back pain. Patient has been seen in the ER twice this week with multiple somatic complaints. She believes that her body aches and symptoms that she is having is secondary to some new medications that she had been started on. She was recently started on a statin, hydralazine, and clopidogrel. Her hydralazine has been stopped and switched to atenolol. Patient presents via EMS tonight secondary to high blood pressure and right lower back pain. She states she was having trouble finding a position of comfort. She did take Tylenol prior to arrival. [facility] Medical History Anxiety and depression Asthma History of CVA (cerebrovascular accident) History of viral encephalitis HTN (hypertension) Insomnia Osteoporosis Uterine prolapse Home Medications aspirin 81 mg chewable tablet (Aspirin Childrens) 81 mg PO DAILY heart health 11/27/22 [History Last Taken 11/27/22 10:00] calcium carbonate 600 mg-vitamin D3 5 mcg (200 unit) capsule (Calcium 600 + D(3)) 1 cap PO DAILY supplement 11/27/22 [History Last Taken 11/27/22 10:00] furosemide 20 mg tablet 20 mg PO DAILY diuretic 11/27/22 [History Last Taken 11/27/22 10:00] lisinopril 20 mg tablet 20 mg PO BID blood pressure 11/27/22 [History Last Taken 11/27/22 10:00] atenolol 50 mg tablet 75 mg PO DAILY bp #30 tabs 11/29/22 [Rx Last Taken Unknown] clopidogrel 75 mg tablet 75 mg PO DAILY #30 tabs 11/29/22 [Rx Last Taken Unknown] sennosides 8.6 mg-docusate sodium 50 mg tablet (Stool Softener-Stimulant Laxati ve) 2 tab PO BID PRN PRN Constipation #0 tabs 11/29/22 [Rx Last Taken Unknown] omeprazole 40 mg capsule,delayed release 40 mg PO DAILY #30 caps 12/16/22 [Rx Last Taken Unknown] amlodipine 2.5 mg tablet 2.5 mg PO DAILY 12/17/22 [History Last Taken Unknown] rosuvastatin 20 mg sprinkle capsule 20 mg PO DAILY 12/17/22 [History Last Taken Unknown] Allergy/AdvReac Type Severity Reaction Status Date / Time amlodipine AdvReac Intermediate Other Verified 12/17/22 03:30 Family History (Updated 12/17/22 @ 06:[address] Marcia Garcia MD) Mother Diabetes Hypertension Heart disease CVA (cerebral vascular accident) Father Prostate cancer Surgical History (Updated 12/17/22 @ 05:[address] Marcia Garcia MD) History of cholecystectomy History of shoulder surgery Hx of cataract extraction Social History (Updated 12/17/22 @ 05:[address] Marcia Garcia MD) household members: none Smoking Status: Never smoker alcohol intake: never substance use type: does not use ROS ROS ED Constitutional Constitutional ED: Denies chills or fever(s) Eyes Eyes: Denies change in vision or discharge from eye(s) ENT ENT ED: Denies discharge from eye(s), rhinorrhea or sore throat Cardiovascular Cardiovascular: Denies chest pain or palpitations Respiratory/Chest Respiratory/Chest: Denies cough or dyspnea Gastrointestinal Gastrointestinal: Denies abdominal pain, nausea or vomiting Genitourinary Genitourinary ED: Denies dysuria Musculoskeletal Musculoskeletal: Reports back pain, extremity pain and myalgias Integumentary Denies Abrasions or rash Neurologic Neurologic: Denies headache(s) or weakness Allergic/Immunologic Allergic/Immunologic ED: Denies lip swelling or urticaria EXAM Physical Exam Const Vital Signs: 12/17/22 03:26 12/17/22 03:55 12/17/22 05:38 Temperature 97.9 F Temperature Source Temporal Pulse Rate 77 76 84 Respiratory Rate 18 12 28 H Blood Pressure 189/91 H 158/68 H 184/87 H Blood Pressure Mean 123 98 119 Pulse Ox 96 97 96 Oxygen Delivery Method Room Air Room Air Positive well nourished and well developed General Appearance ED: well developed HEENT Reports normocephalic and head/scalp atraumatic Eyes PERRL and EOMs intact bilaterally Neck supple Chest Wall inspection of chest normal and palpation of chest normal Resp normal respiratory effort and clear to auscultation bilaterally Cardio regular rate and regular rhythm GI non-tender Auscultation: hypoactive bowel sounds Palpation: soft Back/Spine no CVA tenderness Back/Spine Narrative: Mild tenderness in the right lumbar paraspinal muscles. Extremity normal to inspection Extremity Narrative: Strong and equal distal pulses bilaterally. Neuro oriented x3 and no sensory deficits noted Neuro Narrative: Chronic left facial droop. Sensorium / Orientation: alert Motor Exam: strength 5/5 throughout Psych Mood & Affect: anxious Skin no rashes or lesions noted MDM MDM MDM Narrative Medical decision making narrative: Patient placed on makeup artist. Labwork obtained to evaluate for leukocytosis, anemia, and electrolyte derangement. Urinalysis obtained to evaluate for infection/hematuria. Given the patient's pain in her back and abdomen along with hypertension CTA of the chest, abdomen, and pelvis is obtained. History & Record Review Discussion w/independent historian: EMS personnel, Patient and Family Additional record(s) reviewed:: Prior inpatient record and Prior ED visit Lab Data Attestation: I reviewed the patient's lab results. Labs: Laboratory Results - last 24 hr 12/17/22 12/17/22 12/17/22 03:50 03:50 03:50 WBC 6.1 RBC 3.84 L Hgb 11.5 L Hct 34.3 L MCV 89.3 MCH 29.9 MCHC 33.5 RDW Std Deviation 42.8 RDW Coeff of Aurelio 13.1 Plt Count 150 MPV 10.5 Immature Gran % (Auto) 1.800 H Neut % (Auto) 72.6 H Lymph % (Auto) 16.0 L [place] % (Auto) 7.6 Eos % (Auto) 0.7 Baso % (Auto) 1.3 H Absolute Neuts (auto) 4.4 Absolute Lymphs (auto) 0.97 Nucleated RBC % 0 Sodium 134 L Potassium 3.2 L Chloride 97 L Carbon Dioxide 30.0 Anion Gap 7 BUN 15 Creatinine 0.60 Estim Creat Clear Calc 36.50 Est GFR (MDRD) Af Amer 123 Est GFR (MDRD) Non-Af 101 BUN/Creatinine Ratio 24.9 H Glucose 124 H Calcium 8.5 Phosphorus 3.3 Magnesium 2.1 Iron 63 TIBC 276 Iron Saturation 22.8 Ferritin 199 Troponin I High Sens 7 Urine Color Urine Clarity Urine pH Ur Specific [place] Urine Protein Urine Glucose (UA) Urine Ketones Urine Occult Blood Urine Nitrite Urine Bilirubin Urine Urobilinogen Ur Leukocyte Esterase Urine RBC Urine WBC Ur Squamous Epith Cells Urine Bacteria Urine Mucus 12/17/22 04:41 WBC RBC Hgb Hct MCV MCH MCHC RDW Std Deviation RDW Coeff of Aurelio Plt Count MPV Immature Gran % (Auto) Neut % (Auto) Lymph % (Auto) [place] % (Auto) Eos % (Auto) Baso % (Auto) Absolute Neuts (auto) Absolute Lymphs (auto) Nucleated RBC % Sodium Potassium Chloride Carbon Dioxide Anion Gap BUN Creatinine Estim Creat Clear Calc Est GFR (MDRD) Af Amer Est GFR (MDRD) Non-Af BUN/Creatinine Ratio Glucose Calcium Phosphorus Magnesium Iron TIBC Iron Saturation Ferritin Troponin I High Sens Urine Color Yellow Urine Clarity Clear Urine pH 7.0 Ur Specific [place] 1.010 Urine Protein 30 H Urine Glucose (UA) Normal Urine Ketones 5 H Urine Occult Blood 10 H Urine Nitrite Negative Urine Bilirubin Negative Urine Urobilinogen 4 H Ur Leukocyte Esterase 25 H Urine RBC 0 SEEN Urine WBC 0-5 SEEN Ur Squamous Epith Cells 0-5 SEEN Urine Bacteria 1+ Urine Mucus 1+ Radiography Diagnostic Testing: Clinical Impression(s) from Imaging Studies Chest/Abdomen/Pelvis CTA 12/17/22 03:40 IMPRESSION: No aneurysmal dilatation no dissection no pulmonary embolism. There are visualized reactive appearing lymph nodes which are enlarged since the prior study within the mediastinum. There is a visualized pulmonary nodule right lower lobe measuring 5.4 mm. There is evidence of prior granulomatous disease. There is no visualized aneurysmal dilatation or dissection of the abdominal aorta. Within the right lower quadrant abutting the distal small bowel there is a visualized focal exophytic appearing enhancing 1.7 x 1.6 cm mass, with a possible trace amount of adjacent blood in the lumen image #64 and 67 series 3. With adjacent similar-appearing nodule in the right lower quadrant on image #56 suspicious for a possible reactive or metastatic lymph node. Where this mass is located could potentially cause a distal small bowel obstruction at this time it does not appear to be particularly obstructing. There is hyperdense material within the cecum which may represent merely retained contrast from a prior procedure. Mild to moderate constipation diverticulosis no visualized diverticulitis. Multiple small reactive lymph nodes in the retroperitoneum and in the mesentery. Findings are highly suspicious for pelvic floor laxity with a low-lying appearance of the uterus and bladder and to lesser degree the rectum. No appendicitis. Status post cholecystectomy. Diverticulosis or diverticulitis. Electronically Signed: Nimisha Guevara MD at 5:02 EDT , ADDENDUM: 12/17/22 0509 IMPRESSION: No aneurysmal dilatation no dissection no pulmonary embolism. There are visualized reactive appearing lymph nodes which are enlarged since the prior study within the mediastinum. There is a visualized pulmonary nodule right lower lobe measuring 5.4 mm. There is evidence of prior granulomatous disease. There is no visualized aneurysmal dilatation or dissection of the abdominal aorta. Within the right lower quadrant abutting the distal small bowel there is a visualized focal exophytic appearing enhancing 1.7 x 1.6 cm mass, with a possible trace amount of adjacent blood in the lumen image #64 and 67 series 3. With adjacent similar-appearing nodule in the right lower quadrant on image #56 suspicious for a possible reactive or metastatic lymph node. Where this mass is located could potentially cause a distal small bowel obstruction at this time it does not appear to be particularly obstructing. There is hyperdense material within the cecum which may represent merely retained contrast from a prior procedure. Mild to moderate constipation diverticulosis no visualized diverticulitis. Multiple small reactive lymph nodes in the retroperitoneum and in the mesentery. Findings are highly suspicious for pelvic floor laxity with a low-lying appearance of the uterus and bladder and to lesser degree the rectum. No appendicitis. Status post cholecystectomy. Diverticulosis or diverticulitis. N.B. : The above Results were Read Back by Nimisha Guevara MD to Bre Presley MD, and understanding confirmed on 12/17/2022 05:02:58 (ET). Electronically Signed: Nimisha Guevara MD at 5:02 EDT , Treatment and Re-Evaluation :: CBC reveals normal white count at 6.1. Hemoglobin is 11.5. This has been sta ble over this week when she has had 3 visits. It is, however, 1 g lower than earlier this month when she was here. Chemistry studies reveal a sodium of 134 potassium 3.2. Renal function is normal. Troponin is normal at 7. Urinalysis reveals no evidence of acute infection. CTA is obtained. I received a phone call from the radiologist that there is no evidence of dissection or pulmonary embolism. There is, however, concern for possible cancer with a mass in the terminal ileum and abnormal lymph nodes in the right lower quadrant and in the left chest. She also states there is hyperdensity next to the mass representing possible bleeding. Patient denies that she has noted blood in her stool. When I asked her when she last had a colonoscopy she states a long time ago. Patient has received a dose of fentanyl along with a small dose of Toradol. She still has continued pain. This is her third visit to the emergency room this week and she still does not have good pain control. I advised her that I am unsure if the mass that they have found on imaging is causing her pain, however I do feel she should be admitted to observation for pain control. She is complaining of significant muscle aches and pains that she believes is secondary to her statin, however she is still on the statin and no one has stopped this. I will discuss the case with hospitalist. Addendum: Hospitalist spoke with Dr. Price, on-call for surgery. He reviewed the patient's CT images. He is not sure if this is an abutting mass or an exophytic mass off of the colon/small intestine. He feels the patient would be best served with evaluation by a surgical oncologist, whether this be as an outpatient or inpatient. Given that the patient appears to have blood in the lumen and has had a 2 g drop of hemoglobin since her initial presentation on November 26, I do feel she needs inpatient evaluation. Patient has been discussed with [facility] and she has been accepted at [facility] in [place]. Transport will be arranged. Discharge Plan Triage Chief Complaint: Hypertension ED Provider: Bre Presley Dx/Rx/DC Orders Clinical Impression: Intractable back pain, Intestinal mass Primary Care Provider: Isai Hercules Disposition Disposition: Acute Care Hospital Discharge Location: [facility]
[2022-12-17 04:53] LABS: Red Blood Cells-Urine 0 SEEN /hpf (0-5)
[2022-12-17 04:56] LABS: Color, Urine Yellow (Yellow); Glucose, Dipstick Normal (Normal); Ketone-Dipstick 5 mg/dl (Negative); Leukocyte Esterase-Dipstick 25 /ul (Negative); Nitrite-Dipstick Negative (Negative); Occult Blood-Urine 10 /ul (Negative); Protein-Dipstick 30 mg/dl (Negative); Urine Bilirubin Dipstick Negative (Negative); Urine Clarity Clear (Clear); Urine Urobilinogen 4 mg/dl (Normal)
[2022-12-17] MEDS: Ketorolac 15 MG/ML Vial IV (05:03)
[2022-12-17 05:08] LABS: Bacteria 1+ /hpf (None Seen); Mucous, Urine 1+ /hpf (<or=2+); Squamous Epithelial Cells - UA 0-5 SEEN /hpf (5-10); White Blood Cells 0-5 SEEN /hpf (0-5)
[2022-12-17 05:38] VITALS: BP 184/87; PULSE 84; RESP 28; O2SAT 96
[2022-12-17] MEDS: fentaNYL 100 MCG/2 ML Ampul 12.5 MCG IV (05:42)
[2022-12-17 06:13] VITALS: BP 162/73; PULSE 74; RESP 18; TEMP 36.8; O2SAT 97
--- NOTE | 2022-12-17 06:31 | ED.RN ---
[facility] called for transfer they are currently full and can not accept outside transfers
--- NOTE | 2022-12-17 06:35 | HP.PCM_ITS ---
HPI - General General Date of Admission: 12/17/22 Date of Service: 12/17/22 Chief Complaint: Chest pain, Dyspnea, Back Pain, Muscle aches. 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 Patient reports taking Tylenol for discomfort prior to ED presentation. Patient other recent ED presentations included 12/14/2022 for dyspnea which she reports happens occasionally with no cough with notable fatigue, body aches and muscle aches as well as reported transient fever in addition to 12/16/2022 evaluation for epigastric and back discomfort with some radiation to the chest starting overnight. Patient denies any visualized blood in her stool. Work-up in the ED included T97.9, heart rate 77, BP 189/91, respiratory rate 18, 96% on room air with most recent repeat BP 158/68, CBC with WC 6.1, hemoglobin 11.5, MCV 89.3, platelet 150 with increased immature granulocytes, BMP with sodium 134, pot assium 3.2, chloride 97, glucose 124, troponin 7, urinalysis with specific gravity 1.010, protein 30, ketone 5, occult blood 10, negative nitrite, leukocyte Estrace 25 with urine WBC 0-5 with 1+ urine bacteria, CTA chest, abdomen and pelvis with no evidence of aneurysmal dilatation, dissection or PE however visualized reactive appearing lymph nodes enlarged since previous study of the mediastinum with a visualized pulmonary nodule in the right lower lobe measuring 5.4 mm with evidence of prior granulomatous disease, right lower quadrant abutting the distal small bowel visualized focal exophytic appearing mass 1.7 x 1.6 cm with possible trace adjacent amount of blood in the lumen, adjacent similar-appearing nodule in the right lower quadrant suspicious for possibly reactive or metastatic lymph node, hyperdense material within the cecum possibly retained contrast from prior procedure, mild to moderate constipation, diverticulosis with no visualized diverticulitis, multiple small reactive lymph nodes in the retroperitoneum and mesentery, evidence status post cholecystectomy, appendix normal-appearing. In the ED patient ministered Toradol 50 mg IV x1 as well as fentanyl 25 mcg IV x1 with a repeat dose fentanyl 12.5 mcg IV x1. [facility] Medical History Anxiety and depression Asthma History of CVA (cerebrovascular accident) History of viral encephalitis HTN (hypertension) Insomnia Osteoporosis Uterine prolapse Home Medications aspirin 81 mg chewable tablet (Aspirin Childrens) 81 mg PO DAILY heart health 11/27/22 [History Last Taken 11/27/22 10:00] calcium carbonate 600 mg-vitamin D3 5 mcg (200 unit) capsule (Calcium 600 + D(3)) 1 cap PO DAILY supplement 11/27/22 [History Last Taken 11/27/22 10:00] furosemide 20 mg tablet 20 mg PO DAILY diuretic 11/27/22 [History Last Taken 11/27/22 10:00] lisinopril 20 mg tablet 20 mg PO BID blood pressure 11/27/22 [History Last Taken 11/27/22 10:00] atenolol 50 mg tablet 75 mg PO DAILY bp #30 tabs 11/29/22 [Rx Last Taken Unknown] clopidogrel 75 mg tablet 75 mg PO DAILY #30 tabs 11/29/22 [Rx Last Taken Unknown] sennosides 8.6 mg-docusate sodium 50 mg tablet (Stool Softener-Stimulant Laxative) 2 tab PO BID PRN PRN Constipation #0 tabs 11/29/22 [Rx Last Taken Unknown] omeprazole 40 mg capsule,delayed release 40 mg PO DAILY #30 caps 12/16/22 [Rx Last Taken Unknown] amlodipine 2.5 mg tablet 2.5 mg PO DAILY 12/17/22 [History Last Taken Unknown] rosuvastatin 20 mg sprinkle capsule 20 mg PO DAILY 12/17/22 [History Last Taken Unknown] Allergy/AdvReac Type Severity Reaction Status Date / Time amlodipine AdvReac Intermediate Other Verified 12/17/22 03:30 Family History (Updated 12/17/22 @ 06:[address] Marcia Garcia MD) Mother Diabetes Hypertension Heart disease CVA (cerebral vascular accident) Father Prostate cancer Surgical History (Updated 12/17/22 @ 05:[address] Marcia Garcia MD) History of cholecystectomy History of shoulder surgery Hx of cataract extraction Social History (Updated 12/17/22 @ 05:[address] Marcia Garcia MD) household members: none Smoking Status: Never smoker alcohol intake: never substance use type: does not use ROS ROS Narrative Admission Review of Systems: CONSTITUTIONAL: No weight loss, chills, + fever, weakness or fatigue. HEENT: Eyes: No visual loss, blurred vision, double vision or yellow sclerae. Ears, Nose, Throat: No hearing loss, sneezing, congestion, runny nose or sore throat. SKIN: No rash or itching, lesions, wounds. CARDIOVASCULAR: + chest pain, chest pressure or chest discomfort, No palpitations, edema, orthopnea, syncopal events. RESPIRATORY: + shortness of breath, No cough or sputum, wheezing, hemoptysis. GASTROINTESTINAL: + anorexia, abdominal pain, constipation issues. No nausea, vomiting, diarrhea, melena, BRBPR. GENITOURINARY: No dysuria, frequency, urgency or retention. NEUROLOGICAL: No headache, dizziness, syncope, paralysis, ataxia, numbness or tingling in the extremities, focal weakness, change in bowel or bladder control, seizure. MUSCULOSKELETAL: + muscle, back pain, joint pain or stiffness. HEMATOLOGIC: No anemia, bleeding or bruising. LYMPHATICS: No enlarged nodes. No history of splenectomy. PSYCHIATRIC: + history of depression or anxiety. ENDOCRINOLOGIC: No reports of sweating, cold or heat intolerance. No polyuria or polydipsia. ALLERGIES: + history of asthma. Vital Signs Vital Signs Vital Signs: 12/17/22 03:26 12/17/22 03:55 12/17/22 05:38 Temperature 97.9 F Temperature Source Temporal Pulse Rate 77 76 84 Respiratory Rate 18 12 28 H Blood Pressure 189/91 H 158/68 H 184/87 H Blood Pressure Mean 123 98 119 Pulse Ox 96 97 96 Oxygen Delivery Method Room Air Room Air Weight Weight: 154 lb 12.232 oz Body Mass Index (BMI) 27.3 Physical Exam Narrative Physical Examination: General: Awake, alert, oriented x 3 and cooperative, seated upright in the ED bed, fatigued, notes ongoing discomfort, lower back, upper abdominal as well as joint discomfort. Skin: Normal color, normal turgor, no icterus, no cyanosis. HEENT: AT/NC, EOMI, PERRLA, mildly dry MM, no carotid bruits or JVD noted. Lungs: Mildly diminished, greater bases, proper effort, no rales, ronchi or wheezing. Heart: Currently regular rate and rhythm; no gallop, rub audible. Abdomen: Soft, mild discomfort to the right upper and lower quadrant palpation as well as epigastric region with no rebound or guarding, no obvious distention, normal BS, no HSM. Extremities: No cyanosis, clubbing, or edema. Neurological: Patient awake, alert, oriented as noted, cognitive function intact; pupils equally reactive to light and accommodation, cranial nerves grossly normal except for very minimal residual facial droop, speech significantly improved, moving all 4 extremities, strength moderately global decrease secondary to pain complaints Psychiatric: Affect appears fatigued, uncomfortable, no acute evidence of depressive or anxiety feelings. Results Lab / Micro Data Result Diagrams: 12/17/22 03:50 12/17/22 03:50 Labs: Laboratory Results - last 24 hr 12/17/22 03:50: WBC 6.1, RBC 3.84 L, Hgb 11.5 L, Hct 34.3 L, MCV 89.3, MCH 29.9, MCHC 33.5, RDW Std Deviation 42.8, RDW Coeff of Aurelio 13.1, Plt Count 150, MPV 10.5, Immature Gran % (Auto) 1.800 H, Neut % (Auto) 72.6 H, Lymph % (Auto) 16.0 L, Maries % (Auto) 7.6, Eos % (Auto) 0.7, Baso % (Auto) 1.3 H, Absolute Neuts (auto) 4.4, Absolute Lymphs (auto) 0.97, Nucleated RBC % 0 12/17/22 03:50: Sodium 134 L, Potassium 3.2 L, Chloride 97 L, Carbon Dioxide 30.0, Anion Gap 7, BUN 15, Creatinine 0.60, Estim Creat Clear Calc 36.50, Est GFR (MDRD) Af Amer 123, Est GFR (MDRD) Non-Af 101, BUN/Creatinine Ratio 24.9 H, Glucose 124 H, Calcium 8.5, Troponin I High Sens 7 12/17/22 04:41: Urine Color Yellow, Urine Clarity Clear, Urine pH 7.0, Ur S pecific [place] 1.010, Urine Protein 30 H, Urine Glucose (UA) Normal, Urine Ketones 5 H, Urine Occult Blood 10 H, Urine Nitrite Negative, Urine Bilirubin Negative, Urine Urobilinogen 4 H, Ur Leukocyte Esterase 25 H, Urine RBC 0 SEEN, Urine WBC 0-5 SEEN, Ur Squamous Epith Cells 0-5 SEEN, Urine Bacteria 1+, Urine Mucus 1+ Radiology Impression Chest/Abdomen/Pelvis CTA 12/17/22 03:40 IMPRESSION: No aneurysmal dilatation no dissection no pulmonary embolism. There are visualized reactive appearing lymph nodes which are enlarged since the prior study within the mediastinum. There is a visualized pulmonary nodule right lower lobe measuring 5.4 mm. There is evidence of prior granulomatous disease. There is no visualized aneurysmal dilatation or dissection of the abdominal aorta. Within the right lower quadrant abutting the distal small bowel there is a visualized focal exophytic appearing enhancing 1.7 x 1.6 cm mass, with a possible trace amount of adjacent blood in the lumen image #64 and 67 series 3. With adjacent similar-appearing nodule in the right lower quadrant on image #56 suspicious for a possible reactive or metastatic lymph node. Where this mass is located could potentially cause a distal small bowel obstruction at this time it does not appear to be particularly obstructing. There is hyperdense material within the cecum which may represent merely retained contrast from a prior procedure. Mild to moderate constipation diverticulosis no visualized diverticulitis. Multiple small reactive lymph nodes in the retroperitoneum and in the mesentery. Findings are highly suspicious for pelvic floor laxity with a low-lying appearance of the uterus and bladder and to lesser degree the rectum. No appendicitis. Status post cholecystectomy. Diverticulosis or diverticulitis. Electronically Signed: Nimisha Guevara MD at 5:02 EDT , ADDENDUM: 12/17/22 0478 IMPRESSION: No aneurysmal dilatation no dissection no pulmonary embolism. There are visualized reactive appearing lymph nodes which are enlarged since the prior study within the mediastinum. There is a visualized pulmonary nodule right lower lobe measuring 5.4 mm. There is evidence of prior granulomatous disease. There is no visualized aneurysmal dilatation or dissection of the abdominal aorta. Within the right lower quadrant abutting the distal small bowel there is a visualized focal exophytic appearing enhancing 1.7 x 1.6 cm mass, with a possible trace amount of adjacent blood in the lumen image #64 and 67 series 3. With adjacent similar-appearing nodule in the right lower quadrant on image #56 suspicious for a possible reactive or metastatic lymph node. Where this mass is located could potentially cause a distal small bowel obstruction at this time it does not appear to be particularly obstructing. There is hyperdense material within the cecum which may represent merely retained contrast from a prior procedure. Mild to moderate constipation diverticulosis no visualized diverticulitis. Multiple small reactive lymph nodes in the retroperitoneum and in the mesentery. Findings are highly suspicious for pelvic floor laxity with a low-lying appearance of the uterus and bladder and to lesser degree the rectum. No appendicitis. Status post cholecystectomy. Diverticulosis or diverticulitis. N.B. : The above Results were Read Back by Nimisha Guevara MD to Bre Presley MD, and understanding confirmed on 12/17/2022 05:02:58 (ET). 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 #1. Right lower back discomfort/abdominal discomfort/dyspnea suspected primarily secondary to suspected metastatic cancer with a noted focal exophytic mass with possible trace adjacent blood, possibly causative of #2: Likely responsible for patient's persistent complaints, will admit to telemetry to be cautious given possibility of concurrent bleeding with exophytic mass, given possible bleed associated will maintain n.p.o. status, maintain on IV PPI, will have as needed pain regimen as well as antiemetic regimen, continue judicious hydration, request gastroenterology and general surgery consultations. #2. Acute normocytic anemia, potentially related with #1 with suspected Acute GI bleed, possibly precipitated by recent dual antiplt therapy initiation: Admission hemoglobin 11.5, MCV 89.3, hemoglobin has trended down since discharge on aspirin/Plavix with CVA presentation with prior to this hemoglobin noted to be 13-14, guaiac requested, iron panel, ferritin, will maintain on IV PPI, n.p.o. status, request gastroenterology consultation and assessment as well as general surgery given #1, holding aspirin and Plavix temporarily given these findings. #3. Hypokalemia: Admission K+ 3.2, magnesium level request, supplementation given, repeat level in AM. #4. Recent acute CVA, right frontal parietal and left temporal infarcts suspe cted embolic at that time with evidence of prior right occipital infarct: 11/27/2022 presentation with acute left facial droop/dysarthria/left upper extremity paresthesias, MRI brain as noted, CTA with moderate stenosis of the proximal right vertebral artery, focal atherosclerotic plaques at the carotid bulbs with no significant stenosis or aneurysm, echocardiogram with bubble study with EF 65% with stage I diastolic dysfunction, negative right to left shunt, mild AR. Patient continued on aspirin, addition of Plavix, continued statin, hypertensive regimen with 30-day event monitor initiated at discharge. Given presentation as noted we will temporarily hold aspirin and Plavix, continue hypertensive regimen. Given body aches/muscle aches we will hold statin. #5. Hypertension: Continue home regimen including atenolol, lisinopril, Lasix, amlodipine, PRN hydralazine. #6. Hyperlipidemia: Given body aches/muscle aches we will hold statin. #7. Chronic asthma: Not on any chronic inhalers, as needed albuterol if necessary, head of bed, I-S. #8. Anxiety and depression: Per current list not on chronic regimen, encourage continued outpatient evaluation and follow-up. #9. GERD: We will maintain on IV PPI as noted. #10. DVT prophylaxis: SCDs, defer any chemoprophylaxis given concerns for bleeding. #11. CODE status: Patient MARTITA is her daughter who is present and living will is currently in place. Discussed CODE status at length including difference between FULL code, DNR-CCA and DNR-CC status. Following discussions about the differences in these status, requested Full Code status. Advanced Care Planning Face to Face Time: 16 minutes. Admission Evaluation Time spent evaluating chart, patient history, patient evaluation, care planning and discussion with specialists: 75 minutes. Charges/Coding Visit Charges Inpatient E&M: 14573 Init Hosp L3 Procedures Hospitalists Procedures: 54477 Advncd Care Plan 30 Min
[2022-12-17 06:36] LABS: Ferritin 199 ng/mL (8-252); Iron 63 ug/dL (50-170); Iron Binding Capacity,Total 276 ug/dL (250-450); Magnesium 2.1 mg/dL (1.6-2.6); PERCENT IRON SATURATION 22.8 % (15.0-55.0); Phosphorus 3.3 mg/dL (2.5-4.9)
[2022-12-17 07:00] VITALS: BP 122/92; PULSE 80; RESP 22; O2SAT 98
--- NOTE | 2022-12-17 07:07 | ED.RN ---
PATIENT ACCEPTED AT [facility] ED. DR VIERA ACCEPTING. PHYSICIANS CALLED ETA 8:06 AM
[2022-12-17] MEDS: Acetaminophen 500 MG Tablet PO (07:47)
--- NOTE | 2022-12-17 08:46 | ED.RN ---
PHYSICIANS NEW ETA 9:10 AM
--- NOTE | 2022-12-17 09:25 | PCM.PN.HOSP ---
Reason for Visit Reason for Visit: Diagnoses Other specified diseases of intestine (12/17/22) Objective Data Objective Data Vital Signs: Vital Signs Temp Pulse Resp BP Pulse Ox O2 Del Method 98.2 F 80 22 H 122/92 H 98 Room Air 12/17/22 06:13 12/17/22 07:00 12/17/22 07:00 12/17/22 07:00 12/17/22 07:00 12/17/22 06:13 Oxygen Delivery Method Room Air Weight: 154 lb 12.232 oz Body Mass Index (BMI) 27.3 Lab / Micro Data Result Diagrams: 12/17/22 03:50 12/17/22 03:50 Labs: Laboratory Results - last 24 hr 12/17/22 03:50: WBC 6.1, RBC 3.84 L, Hgb 11.5 L, Hct 34.3 L, MCV 89.3, MCH 29.9, MCHC 33.5, RDW Std Deviation 42.8, RDW Coeff of Aurelio 13.1, Plt Count 150, MPV 10.5, Immature Gran % (Auto) 1.800 H, Neut % (Auto) 72.6 H, Lymph % (Auto) 16.0 L, Dickenson % (Auto) 7.6, Eos % (Auto) 0.7, Baso % (Auto) 1.3 H, Absolute Neuts (auto) 4.4, Absolute Lymphs (auto) 0.97, Nucleated RBC % 0 12/17/22 03:50: Sodium 134 L, Potassium 3.2 L, Chloride 97 L, Carbon Dioxide 30.0, Anion Gap 7, BUN 15, Creatinine 0.60, Estim Creat Clear Calc 36.50, Est GFR (MDRD) Af Amer 123, Est GFR (MDRD) Non-Af 101, BUN/Creatinine Ratio 24.9 H, Glucose 124 H, Calcium 8.5, Troponin I High Sens 7 12/17/22 03:50: Phosphorus 3.3, Magnesium 2.1, Iron 63, TIBC 276, Iron Saturation 22.8, Ferritin 199 12/17/22 04:41: Urine Color Yellow, Urine Clarity Clear, Urine pH 7.0, Ur Specific [place] 1.010, Urine Protein 30 H, Urine Glucose (UA) Normal, Urine Ketones 5 H, Urine Occult Blood 10 H, Urine Nitrite Negative, Urine Bilirubin Negative, Urine Urobilinogen 4 H, Ur Leukocyte Esterase 25 H, Urine RBC 0 SEEN, Urine WBC 0-5 SEEN, Ur Squamous Epith Cells 0-5 SEEN, Urine Bacteria 1+, Urine Mucus 1+ Radiography Diagnostic Testing: Radiology Impression Chest/Abdomen/Pelvis CTA 12/17/22 03:40 IMPRESSION: No aneurysmal dilatation no dissection no pulmonary embolism. There are visualized reactive appearing lymph nodes which are enlarged since the prior study within the mediastinum. There is a visualized pulmonary nodule right lower lobe measuring 5.4 mm. There is evidence of prior granulomatous disease. There is no visualized aneurysmal dilatation or dissection of the abdominal aorta. Within the right lower quadrant abutting the distal small bowel there is a visualized focal exophytic appearing enhancing 1.7 x 1.6 cm mass, with a possible trace amount of adjacent blood in the lumen image #64 and 67 series 3. With adjacent similar-appearing nodule in the right lower quadrant on image #56 suspicious for a possible reactive or metastatic lymph node. Where this mass is located could potentially cause a distal small bowel obstruction at this time it does not appear to be particularly obstructing. There is hyperdense material within the cecum which may represent merely retained contrast from a prior procedure. Mild to moderate constipation diverticulosis no visualized diverticulitis. Multiple small reactive lymph nodes in the retroperitoneum and in the mesentery. Findings are highly suspicious for pelvic floor laxity with a low-lying appearance of the uterus and bladder and to lesser degree the rectum. No appendicitis. Status post cholecystectomy. Diverticulosis or diverticulitis. Electronically Signed: Nimisha Guevara MD at 5:02 EDT Reading Location ID and State: [facility] / [place] Tel , Service support , ADDENDUM: 12/17/22 0505 IMPRESSION: No aneurysmal dilatation no dissection no pulmonary embolism. There are visualized reactive appearing lymph nodes which are enlarged since the prior study within the mediastinum. There is a visualized pulmonary nodule right lower lobe measuring 5.4 mm. There is evidence of prior granulomatous disease. There is no visualized aneurysmal dilatation or dissection of the abdominal aorta. Within the right lower quadrant abutting the distal small bowel there is a visualized focal exophytic appearing enhancing 1.7 x 1.6 cm mass, with a possible trace amount of adjacent blood in the lumen image #64 and 67 series 3. With adjacent similar-appearing nodule in the right lower quadrant on image #56 suspicious for a possible reactive or metastatic lymph node. Where this mass is located could potentially cause a distal small bowel obstruction at this time it does not appear to be particularly obstructing. There is hyperdense material within the cecum which may represent merely retained contrast from a prior procedure. Mild to moderate constipation diverticulosis no visualized diverticulitis. Multiple small reactive lymph nodes in the retroperitoneum and in the mesentery. Findings are highly suspicious for pelvic floor laxity with a low-lying appearance of the uterus and bladder and to lesser degree the rectum. No appendicitis. Status post cholecystectomy. Diverticulosis or diverticulitis. N.B. : The above Results were Read Back by Nimisha Guevara MD to Bre Presley MD, and understanding confirmed on 12/17/2022 05:02:58 (ET). 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 ED on 12/17/22 with ongoing right lower back discomfort as well as complaints of elevated blood pressure evaluated 2 times in the week earlier for multiple somatic complaints with body aches which she attributed to new medications as she had recently been started on statin, hydralazine and Plavix with hydralazine discontinuation and switch to atenolol however given ongoing difficulty with discomfort prompted EMS call. #1. Right lower back discomfort/abdominal discomfort/dyspnea suspected primarily secondary to suspected metastatic cancer with a noted focal exophytic mass with possible trace adjacent blood, possibly causative of #2: Likely responsible for patient's persistent complaints, will admit to telemetry to be cautious given possibility of concurrent bleeding with exophytic mass, given possible bleed associated will maintain n.p.o. status, maintain on IV PPI, will have as needed pain regimen as well as antiemetic regimen, continue judicious hydration, request gastroenterology and general surgery consultations. #2. Acute normocytic anemia, potentially related with #1 with suspected Acute GI bleed, possibly precipitated by recent dual antiplt therapy initiation: Admission hemoglobin 11.5, MCV 89.3, hemoglobin has trended down since discharge on aspirin/Plavix with CVA presentation with prior to this hemoglobin noted to be 13-14, guaiac requested, iron panel, ferritin, will maintain on IV PPI, n.p.o. status, request gastroenterology consultation and assessment as well as general surgery given #1, holding aspirin and Plavix temporarily given these findings. #3. Hypokalemia: Admission K+ 3.2, magnesium level request, supplementation given, repeat level in AM. #4. 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 Patient continued on aspirin, addition of Plavix, continued statin, hypertensive regimen with 30-day event monitor initiated at discharge. Given presentation as noted we will temporarily hold aspirin and Plavix, continue hypertensive regimen. Given body aches/muscle aches we will hold statin. #5. Hypertension: Continue home regimen including atenolol, lisinopril, Lasix, amlodipine, PRN hydralazine. #6. Hyperlipidemia: Given body aches/muscle aches we will hold statin. #7. Chronic asthma: Not on any chronic inhalers, as needed albuterol if necessary, head of bed, I-S. #8. Anxiety and depression: Per current list not on chronic regimen, encourage continued outpatient evaluation and follow-up. #9. GERD: We will maintain on IV PPI as noted. #10. DVT prophylaxis: SCDs, defer any chemoprophylaxis given concerns for bleeding. #11. CODE status: Patient HCPOA is her daughter who is present and living will is currently in place. Discussed CODE status at length including difference between FULL code, DNR-CCA and DNR-CC status. Following discussions about the differences in these status, requested Full Code status. Advanced Care Planning Face to Face Time: 16 minutes. Admission Evaluation Time spent evaluating chart, patient history, patient evaluation, care planning and discussion with specialists: 75 minutes.
[2022-12-17 09:32] VITALS: BP 160/99; PULSE 78; RESP 18; O2SAT 99
[2022-12-17] MEDS: Morphine 2 MG/ML Syringe IV (10:03)
== END 2022-12-17 10:08 | disposition short-term general hospital (02) ==
LOC: ED 05:43 → PCU 07:02
PROVIDERS: Family Medicine; Emergency Provider Emergency Medicine; PCP Family Medicine; Visit Provider Emergency Medicine
DX: I10 Essential (primary) hypertension (principal); C49.A0 Gastrointestinal stromal tumor, unspecified site; M54.9 Dorsalgia, unspecified; Z79.899 Other long term (current) drug therapy; Z90.49 Acquired absence of other specified parts of digestive tract
CPT/HCPCS: 71275; 74174; 80048; 81001; 82728; 83540; 83550; 83735; 84100; 84484; 85025; 96374; 96375; 96376; 99285; Q9967; A4216

== ENCOUNTER 2023-01-07 18:32 | Inpatient (IN) | payer MEDICARE, OTHER, SELFPAY ==
[2023-01-07 18:36] VITALS: BP 135/56; PULSE 70; RESP 18; TEMP 36.6; O2SAT 94; BMI 24.2
[2023-01-07 21:00] VITALS: PULSE 70
[2023-01-07] MEDS: guaiFENesin 600 MG Tablet PO (21:00)
[2023-01-07] MEDS: Metoprolol Tartrate 25 MG Tablet PO (21:00)
[2023-01-07] MEDS: MELATONIN 10 MG TABLET 5 MG PO (21:00)
[2023-01-07] MEDS: Lisinopril 20 MG Tablet PO (21:01)
[2023-01-07] MEDS: Methocarbamol 500 MG Tablet PO (21:01)
[2023-01-07] MEDS: Senna/Docusate Sodium 1 Tablet 2 TABLET PO (21:01)
[2023-01-07] MEDS: Acetaminophen 500 MG Tablet 1000 MG PO (21:01)
[2023-01-07] MEDS: Gabapentin 100 MG Capsule 200 MG PO (21:06)
[2023-01-07 22:00] VITALS: PULSE 76; RESP 16
[2023-01-07 23:22] VITALS: BP 136/56; PULSE 76; RESP 16; TEMP 36.6; O2SAT 95
[2023-01-07] MEDS: Benzonatate 100 MG Capsule PO (23:42)
[2023-01-08] MEDS: Methocarbamol 500 MG Tablet PO ×3 (06:45→21:10)
[2023-01-08] MEDS: Acetaminophen 500 MG Tablet 1000 MG PO ×3 (06:45→21:11)
[2023-01-08] MEDS: Gabapentin 100 MG Capsule 200 MG PO ×3 (06:47→21:07)
[2023-01-08 07:20] VITALS: O2SAT 97
[2023-01-08 07:36] VITALS: BP 139/72; PULSE 102; RESP 18; TEMP 36.3; O2SAT 93
[2023-01-08 07:46] LABS: Absolute Lymphocyte Count 0.76 X10^3/uL (0.83-4.51); Basophil# 0.04 X10^3/uL; Basophil% 1.2 % (0-1); Hematocrit 34.3 % (37-47); Lymphocyte # 0.76 X10^3/ul (0.83-4.51); Lymphocyte % 22.7 % (19-41); Mean Corp Hgb Conc 32.1 g/dL (32-36); Mean Corpuscular Hgb 30.6 pg (27.0-32.0); Mean Corpuscular Volume 95.5 fL (81-99); Mean Platelet Vol. 9.4 fl (6.2-12.0); Monocyte# 0.38 X10^3/uL; Monocyte% 11.3 % (0-10); NRBC Flagged by Analyzer 0 % (0-5); Neutrophil # 1.95 X10^3/uL (2.7-7.7); Neutrophil % 58.2 % (47-70); Platelet Count 196 K/mm3 (150-450); Red Blood Count 3.59 M/mm3 (4.2-5.4); White Blood Count 3.4 K/mm3 (4.4-11.0)
[2023-01-08 08:20] VITALS: PULSE 102
[2023-01-08] MEDS: Lisinopril 20 MG Tablet PO ×2 (08:20→21:10)
[2023-01-08] MEDS: Metoprolol Tartrate 25 MG Tablet PO ×2 (08:20→21:09)
[2023-01-08] MEDS: Pantoprazole Sodium 40 MG Tablet PO (08:20)
[2023-01-08] MEDS: guaiFENesin 600 MG Tablet PO ×2 (08:20→21:10)
[2023-01-08] MEDS: Calcium Carbonate 500 MG Tablet PO ×3 (08:20→17:10)
[2023-01-08] MEDS: Aspirin 81 MG TAB.CHEW PO (08:21)
[2023-01-08] MEDS: Furosemide 20 MG Tablet PO (08:21)
[2023-01-08] MEDS: Clopidogrel Bisulfate 75 MG Tablet PO (08:33)
[2023-01-08 08:39] LABS: ALB/GLOB Ratio 0.7 RATIO (0.9-2.4); AST(SGOT) 49 U/L (15-37); Alanine Aminotransfer ALT/SGPT 89 U/L (13-56); Albumin, Serum 2.7 g/dL (3.2-5.0); Alkaline Phosphatase 174 U/L (45-117); Anion Gap 2 (5-15); BUN 21 mg/dL (7-18); BUN/Creat Ratio 37.5 RATIO (10-20); Calcium,Total 8.9 mg/dL (8.5-10.1); Chloride 107 mmol/L (98-107); Creatinine, Serum 0.56 mg/dL (0.55-1.02); EST Glomerular Filtration Rate 110 mL/min (>60); Est Glom Filt Rate - Afr Amer 133 mL/min (>60); Globulin 4.1 g/dL (2.2-4.2); Glucose 100 mg/dL (74-106); Phosphorus 3.6 mg/dL (2.5-4.9); Potassium 3.8 mmol/L (3.5-5.1); Protein, Total 6.8 g/dL (6.4-8.2); Sodium Level 139 mmol/L (136-145)
[2023-01-08] MEDS: Benzonatate 100 MG Capsule PO (13:58)
[2023-01-08 20:00] VITALS: BP 128/75; PULSE 99; RESP 18; TEMP 36.4; O2SAT 98
[2023-01-08] MEDS: MELATONIN 10 MG TABLET 5 MG PO (21:08)
[2023-01-08 21:09] VITALS: BP 128/75; PULSE 99
[2023-01-08] MEDS: Senna/Docusate Sodium 1 Tablet 2 TABLET PO (21:10)
[2023-01-09] MEDS: traMADol 50 MG Tablet PO ×3 (02:32→16:45)
[2023-01-09] MEDS: Ondansetron ODT 4 MG Tablet PO (04:42)
[2023-01-09] MEDS: Acetaminophen 500 MG Tablet 1000 MG PO ×3 (05:03→21:37)
[2023-01-09] MEDS: Methocarbamol 500 MG Tablet PO ×3 (05:03→21:37)
[2023-01-09] MEDS: Gabapentin 100 MG Capsule 200 MG PO ×3 (05:03→21:36)
[2023-01-09 07:12] VITALS: O2SAT 98
[2023-01-09 07:40] VITALS: BP 137/78; PULSE 89; RESP 18; TEMP 36.3; O2SAT 95
[2023-01-09 08:25] VITALS: PULSE 89
[2023-01-09] MEDS: Lisinopril 20 MG Tablet PO ×2 (08:25→21:37)
[2023-01-09] MEDS: Clopidogrel Bisulfate 75 MG Tablet PO (08:25)
[2023-01-09] MEDS: Aspirin 81 MG TAB.CHEW PO (08:25)
[2023-01-09] MEDS: Pantoprazole Sodium 40 MG Tablet PO (08:25)
[2023-01-09] MEDS: guaiFENesin 600 MG Tablet PO ×2 (08:25→21:36)
[2023-01-09] MEDS: Metoprolol Tartrate 25 MG Tablet PO ×2 (08:25→21:35)
[2023-01-09] MEDS: Furosemide 20 MG Tablet PO (08:25)
[2023-01-09] MEDS: Calcium Carbonate 500 MG Tablet PO ×3 (08:25→16:46)
[2023-01-09 20:00] VITALS: BP 127/63; PULSE 91; RESP 18; TEMP 36.1; O2SAT 95
[2023-01-09 21:35] VITALS: BP 127/63; PULSE 91
[2023-01-09] MEDS: MELATONIN 10 MG TABLET 5 MG PO (21:36)
[2023-01-09] MEDS: Benzonatate 100 MG Capsule PO (21:40)
[2023-01-10] MEDS: traMADol 50 MG Tablet PO ×2 (01:16→16:52)
[2023-01-10] MEDS: Gabapentin 100 MG Capsule 200 MG PO ×3 (05:16→21:35)
[2023-01-10] MEDS: Methocarbamol 500 MG Tablet PO ×3 (05:16→21:38)
[2023-01-10] MEDS: Acetaminophen 500 MG Tablet 1000 MG PO ×3 (05:16→21:37)
[2023-01-10 07:12] VITALS: O2SAT 95
[2023-01-10 07:43] VITALS: BP 145/75; PULSE 91; RESP 18; TEMP 36.7; O2SAT 97
[2023-01-10 08:55] VITALS: BP 145/75; PULSE 91
[2023-01-10] MEDS: Clopidogrel Bisulfate 75 MG Tablet PO (08:55)
[2023-01-10] MEDS: Aspirin 81 MG TAB.CHEW PO (08:55)
[2023-01-10] MEDS: Metoprolol Tartrate 25 MG Tablet PO ×2 (08:55→21:39)
[2023-01-10] MEDS: Pantoprazole Sodium 40 MG Tablet PO (08:56)
[2023-01-10] MEDS: Lisinopril 20 MG Tablet PO ×2 (08:56)
[2023-01-10] MEDS: guaiFENesin 600 MG Tablet PO ×2 (08:56→21:36)
[2023-01-10] MEDS: Furosemide 20 MG Tablet PO (08:56)
[2023-01-10] MEDS: Calcium Carbonate 500 MG Tablet PO ×3 (08:57→16:52)
--- NOTE | 2023-01-10 11:58 | PCM.HP.STD ---
[facility] - General General Date of Admission: 01/07/23 Date of Service: 01/10/23 Chief Complaint: Physical debility due to recent resection of a neuroendocrine tumor in the ABD with R colectomy and bx of several lymph nodes. She also had a CVA on 11/27/22. [facility] Narrative MERLYN ERAZO, is a 82 YO F with a PMH of CVA on 11/27/22 (right frontal parietal and left temporal likely embolic strokes), HTN, dyslipidemia, uterine prolapse, history of viral encephalitis (2017), diverticulosis, anxiety/depression, osteopenia, diastolic dysfunction stage I, moderate left atrial enlargement and diet-controlled diabetes mellitus. Merlyn was admitted to [facility] for a stroke on 11/27/2022. She was discharged on 11/29/22 and referred for OP therapy. She returned to the ER at [facility] 2 additional times later in the month with c/o abd pain. She had a CT scan of her abdomen and pelvis that revealed a focal exophytic appearing enhancing 1.7 x 1.6 cm mass adjacent to the distal small bowel. There was also a similar-appearing nodule in the right lower quadrant suspicious for possible reactive or metastatic lymph node. There were multiple small reactive lymph nodes in the retroperitoneum and in the mesentery. Also visualized were reactive appearing lymph nodes in the mediastinum which had enlarged since previous study. There was a 5.4 mm pulmonary nodule in the right lower lobe. she was transferred to a tertiary center ([facility]) for surgery on the recommendation of general surgery at [facility]. On 12/23/2022 she underwent a right colectomy, terminal ileum resection and an omental flap with surgical oncology. Final pathology was resulted as a neuroendocrine tumor with 6/27 positive nodes. Postoperatively she had an ileus and was started on TPN. She also experienced urine retention which is likely multifactorial secondary to uterine prolapse, postoperative pain and medications. After the ileus resolved and NG was inserted to provide nutrition. Prior to transfer to [facility] she had been started on a diet. She was seen by PT/OT/ST postoperatively and acute rehab was recommended following discharge. She was transferred to the acute inpt rehab unit at [facility] on 01/07/23 for 3 hours of therapy daily to restore function/independence at or near her level prior to the recent strokes and resection of an ileocecal neuroendocrine tumor. Afebrile VSS Maintaining appropriate oxygen saturation on RA-95 to 97% Oral intake is good. She ate 75 to 100% of her last 2 meals. Good fluid intake as well. Discussed with nursing - no problems that need addressed Reviewed the PT/OT/ST notes - ST talked with me and the pt is quite confused. Medication list reviewed. She is still on dual antiplatelet agents and her stroke occurred on 11/27/2022 which is greater than 1 month ago. Can probably discontinue Plavix at this time. She is currently on Robaxin 500 mg 3 times daily, tramadol as needed and Neurontin 200 mg 3 times daily, all of which cause confusion. She is not on pharmacologic DVT prophylaxis. She is now 18 days post op. All paperwork from Her admission to [facility] on 11/27/22 and from [facility] was personally reviewed. B12 and TSH were both normal within the past 2 months. [facility] Medical History (Updated 01/11/23 @ 16:[address] Yanet Cabral, ) Anxiety and depression Asthma Grade I diastolic dysfunction History of CVA (cerebrovascular accident) History of viral encephalitis HTN (hypertension) Insomnia Left atrial enlargement Osteopenia Uterine prolapse Home Medications aspirin 81 mg chewable tablet (Aspirin Childrens) 81 mg PO DAILY heart health 11/27/22 [History Last Taken 11/27/22 10:00] furosemide 20 mg tablet 20 mg PO DAILY diuretic 11/27/22 [History Last Taken 11/27/22 10:00] lisinopril 20 mg tablet 20 mg PO BID blood pressure 11/27/22 [History Last Taken 11/27/22 10:00] rosuvastatin 20 mg sprinkle capsule 20 mg PO QHS Check with primary doctor 12/17/22 [History Last Taken Unknown] acetaminophen 500 mg tablet 1,000 mg PO Q8H pain 01/07/23 [History Last Taken Unknown] benzonatate 100 mg capsule 100 mg PO TID PRN Cough 01/07/23 [History Last Taken Unknown] calcium carbonate 200 mg calcium (500 mg) chewable tablet 200 mg PO TID Check with primary doctor 01/07/23 [History Last Taken Unknown] clopidogrel 75 mg tablet 75 mg PO DAILY Check with primary doctor 01/07/23 [History Last Taken Unknown] gabapentin 100 mg capsule 200 mg PO TID pain 01/07/23 [History Last Taken Unknown] guaifenesin 600 mg tablet, extended release 12 hr 600 mg PO Q12H cough 01/07/23 [History Last Taken Unknown] melatonin 5 mg tablet 5 mg PO QHS insomnia 01/07/23 [History Last Taken Unknown] methocarbamol 500 mg tablet 500 mg PO TID Check with primary doctor 01/07/23 [History Last Taken Unknown] metoprolol tartrate 25 mg tablet 25 mg PO BID blood pressure 01/07/23 [History Last Taken Unknown] naloxone 4 mg/actuation nasal spray 1 spray intranasal Q3M opioid overdose 01/07/23 [History Last Taken Unknown] omeprazole 40 mg capsule,delayed release 40 mg PO DAILY Check with primary doctor 01/07/23 [History Last Taken Unknown] ondansetron 4 mg disintegrating tablet 4 mg PO Q6H PRN Nausea 01/07/23 [History Last Taken Unknown] simethicone 40 mg/0.6 mL oral drops,suspension 80 mg PO Q6H Check with primary doctor 01/07/23 [History Last Taken Unknown] tramadol 50 mg tablet 25 - 50 mg PO Q6H PRN PRN Pain 01/07/23 [History Last Taken Unknown] Allergy/AdvReac Type Severity Reaction Status Date / Time amlodipine AdvReac Intermediate Other Verified 12/17/22 03:30 Family History Mother Diabetes Hypertension Heart disease CVA (cerebral vascular accident) Father Prostate cancer Surgical History (Updated 01/11/23 @ 14:[address] Yanet Cabral DO) History of cholecystectomy History of shoulder surgery Hx of cataract extraction Social History (Updated 01/10/23 @ 16:[address] Yanet Cabral DO) household members: none Smoking Status: Never smoker alcohol intake: former details: She drinks 1-2 glasses of wine 3-4 times a month. substance use type: does not use ROS Constitutional Constitutional: Reports change in weight, difficulty sleeping and weight loss Eyes Eyes: Denies blurry vision or double vision ENT HEENT: Denies neck pain, sore throat or tinnitus Cardiovascular Cardiovascular: Denies chest pain Vital Signs Vital Signs Vital Signs: 01/09/23 21:35 01/09/23 20:00 01/09/23 20:00 Temperature 96.9 F L Temperature Source Temporal Pulse Rate 91 91 Pulse Strength Normal (2+) Respiratory Rate 18 Respiratory Effort Respiratory Depth Respiratory Pattern Blood Pressure 127/63 H 127/63 H Blood Pressure Mean 84 Blood Pressure Source Monitor Blood Pressure Position Sitting Blood Pressure Location Right Arm Pulse Ox 95 Oxygen Delivery Method Room Air 01/09/23 20:00 01/10/23 07:12 01/10/23 07:43 Temperature 98.0 F Temperature Source Oral Pulse Rate 91 Pulse Strength Respiratory Rate 18 Respiratory Effort Normal Non-Labored Respiratory Depth Normal Respiratory Pattern Normal Blood Pressure 145/75 H Blood Pressure Mean 98 Blood Pressure Source Monitor Blood Pressure Position Supine Blood Pressure Location Left Arm Pulse Ox 95 97 Oxygen Delivery Method Room Air Room Air Room Air 01/10/23 08:55 01/10/23 10:00 Temperature Temperature Source Pulse Rate 91 Pulse Strength Normal (2+) Respiratory Rate Respiratory Effort Respiratory Depth Respiratory Pattern Blood Pressure 145/75 H Blood Pressure Mean Blood Pressure Source Blood Pressure Position Blood Pressure Location Pulse Ox Oxygen Delivery Method Weight Weight: 136 lb 14.513 oz Body Mass Index (BMI) 24.2 Physical Exam Const alert and oriented x3 Constitutional Narrative: She speaks very fast and she can not stay on topic. She has flight of ideas. General Appearance: cooperative and well kempt HEENT normocephalic and hearing grossly normal bilaterally HEENT Narrative: Very dry mucous membranes. Eyes PERRL, EOMs intact bilaterally, conjunctivae normal and no scleral icterus Eyes Narrative: no visual loss General Eye: normal appearance of both eyes; Negative for proptosis Neck full ROM, supple, No no JVD, No nodes and No no carotid bruits General: trachea midline Lymph Lymphatic: no lymphadenopathy noted Chest Chest: symmetrical chest wall rise Resp normal respiratory effort, normal air movement and clear to auscultation bilaterally Effort and Inspection: able to speak in complete sentences Cardio regular rhythm Cardio Narrative: resting /hr is in the 90's GI GI Narrative: Mildly distended. She feels bloated. BS's are present in all quadrants and then are normal. Tender to palpation in all quadrants. No guarding. Palpation: soft Back/Spine no CVA tenderness Extremity normal capillary refill, no calf tenderness and no pedal edema Extremity Narrative: No clubbing. Skin General Skin Exam: no breakdown Rashes: no rashes Neuro Neuro Narrative: She has a mild L facial droop.......when she smiles it becomes less obvious. 5/5 strength throughout. No sensory deficits. No ataxia. No extinction. Occasional trouble word finding. Psych cooperative Psych Narrative: She complains of feeling anxious and having a hard time sleeping. She also has muscle spasms. Does not consistently make eye contact. She has flight of ideas and cannot stay on topic. When she does not know the answer to a question she changes the subject. Appearance: well kempt Attitude: evasive Activity / Motor Behavior: disorganized Speech: excessive Results Medical Records Data Medical Nutrition Assessment Dietitian: Malnutrition Criteria Met Start: 01/08/23 12:44 Freq: Status: Active Protocol: Document 01/08/23 12:44 [facility] (Rec: 01/08/23 12:44 [facility] [id number]) Nutrition Malnutrition Evidence of Malnutrition Exists Yes Malnutrition (severe): Acute Illness/Injury Evidenced By Suboptimal Energy Intake ( Severe),Weight Loss (Severe) Clinical Problem Acute Disease or Injury Related Malnutrition Etiology related to recent surgery and inadequate energy intake Signs/Symptoms as evidenced by meeting <50-75 % of est nutritional needs and 9.3% unintentional wt loss x < 1 month Status Active Problem Recommendation Dietitian Recommendations/Changes Will change diet to Regular low fiber w/ 4 oz ensure plus high protein 3x/day w/ meals per pt preference (vs medpass) Will monitor for changes in pt nutritional status and adjust ONS as indicated. Lab / Micro Data Result Diagrams: 01/11/23 05:42 01/11/23 05:42 Assessment & Plan Assessment/Plan (1) Physical debility: (2) Neuroendocrine neoplasm of gastrointestinal tract: (3) S/P colon resection: PLAN: R colon resection with excision of the tumor and lymph node biopsy. 03/22 + for neuroendocrine tumor. (4) History of CVA (cerebrovascular accident): PLAN: 11/27/22. MRI showed 2 small foci of restricted diffusion in the right frontal parietal cortex and another small focus of restricted diffusion in the left temporal cortex. There was also a chronic right occipital infarct present which she had in the past. The fact that she has had strokes on both sides of the brain likely indicates these were embolic strokes. She has left atrial enlargement on her echocardiogram which is moderate. She was sent a 30 day event monitor following DC from stroke on 11/29/22 but, they took it off when the abd pain got really bad and sent it back to the company. Will need to reissue after she is discharged from rehab. Now that we know she has a tumor......we must also consider whether or not she is hypercoagulable. (5) Acute blood loss as cause of postoperative anemia: PLAN: HGB normal in early November at the time of the strokes.......now it is 10.4. Iron studies are recently normal. (6) Abnormal LFTs: PLAN: Mild elevation in SAT, ALT and AP. (7) Leukopenia: PLAN: Etiology? Medication? (8) Osteopenia: (9) Uterine prolapse: PLAN: Follows up with Dr. Milly Hartley. (10) Insomnia: (11) HTN (hypertension): PLAN: Increases with anxiety......so does the HR. Dtr tells me that she seems to tolerate Metoprolol without any adverse reactions. (12) Grade I diastolic dysfunction: (13) Left atrial enlargement: PLAN: Moderately enlarged. (14) Pulmonary hypertension: PLAN: PA systolic estimated at 40 on TTE done on 11/28/22 at [facility]. (15) Hot flashes: PLAN: Could be due to anxiety OR carcinoid sx due to GI neuroendocrine tumor. (16) Cognitive dysfunction: PLAN: She has a history of viral encephalitis and also has a history of 3 small strokes in early November of this year. Both could contribute to this. PLAN: Plan PLAN PT for gait stability OT for ADL's ST for evaluation Analgesics as needed Bowel protocol Fall precautions Assess for Anxiety/Depression GI prophylaxis with pantoprazole 40 mg p.o. daily DVT prophylaxis with Herlinda and [place]A [place] ri[place] Follow up with Dr. Hercules, the surgeon who completed the right hemicolectomy, neurology and oncologist specializing in neuroendocrine tumors following DC from IP Rehab Encourage her to increase her fluid intake. Decrease the gabapentin to 200 mg 3 times daily because of cognitive dysfunction on the speech therapy evaluation Xanax as needed anxiety with increased heart rate and blood pressure Check a serotonin level in the a.m. - neuroendocrine tumors can secrete serotonins. Ask the surgeon if it is OK to start Heparin or Lovenox for DVT prophylaxis. If so then DC the Plavix and continue only ASA.......it has been a month since she had the strokes. Recheck a BMP in the AM and a CBC with diff. Charges/Coding Visit Charges Inpatient E&M: 09512 Init Hosp L3
--- NOTE | 2023-01-10 15:12 | PCM.RU.PYE ---
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 Status Changes from Prescreening?: No changes Identified Actual Problem List:: Skin Intergrity, Pain, ALteration in Cmfrt, Cognitve Impr/Memory Loss, Alteration in Sleep, Mobility Impaired, Self Care Deficit, Know.Dfct/Disease Process, Know.Dfct of Medicaitons, BP, Hypertension, Fluid Change-Dehydration and Alteration-Leisure Activ. Potential Problem List:: DVT, Bleeding, Infection, UTI, Aspiration, Falls, Skin Integrity and Depression Risk of Complications DVT: ROSA Hose and Sequential Compression Device Bleeding: Monitor Lab Values, Nursing to Teach Precautions for anti-coagulation therapy., Wound, if applicable, to be assessed every shift. and Stroke patients assessed for lethargy or change in status. Infection: Clinical Staff to Monitor for S/S of infection: and S/S of infection include fever, redness, warmth, etc. Urinary Tract Infection: Monitor for frequency, burning, discomfort, or incontinence. and Nursing will obtain urine sample for urinalysis and C&S when ordered. Aspiration: Clinical staff will monitor for coughing, drooling, congestion., Speech will evaluate swallowing and dsyphasia. and Nursing will monitor patient swallowing during meals. Falls: Patient will be evaluated for Fall Precautions and Patient will be placed on Fall Precautions as indicated per protocol. Skin Breakdown: Nursing will assess skin daily using assessment tool. and Nursing will place on Skin Breakdown Precautions as indicated. Pain: Clinical staff will assess patient's pain level per protocol., Medications will be given, if needed, and the pain level reassessed. and Other methods: Massage, distraction, decrease stimulus, etc. used PRN. Plan of Care Patient requires physician specializing in physical medicine and rehab oversight to provide close medical supervision of rehab issues including: Pain Management, Sleep Problems, Bowel and Bladder, Medical and co-morbidity Management, DVT prophylaxis, Rehabilitation Leadership and Coordination of treatment team Patient needs Physical Therapy: For a minimum of 1 hour and At least 5 out of 7 days Patient needs Physical Therapy to improve:: Mobility, Strengthening, Transfers, Stretching, ROM, Endurance, Stairs, Gait and Balance Patient needs Occupational Therapy: For a minimum of 1 hour and At least 5 out of 7 days Patient needs Occupational Therapy to improve ADL's incl.: Eating, Grooming, Bathing, Dressing, Toileting, Toilet transfers, Community Reintegration, Higher functioning activities, Household tasks, Adaptive Equipment, Splinting and Other activities as determined Patient requires speech therapy: For a minimum of 1 hour and At least 5 out of 7 days Patient requires speech therapy for: Swallowing, Cognition, Language Skills and Compensatory Strategies Patient requires 24/ Rehabilitation Nursing for: Pain Issues, Identifying and preventing risk factors, Monitoring and reporting current medical conditions, Assisting with ambulation, transfer, and all ADL's, Teaching patients about disease process and medications, Family teaching, Providing safe environment, Bowel and Bladder Issues, Skin integrity and Medication Management Patient needs Senior Master Scheduler/ Case Management for: Discharge Planning, Arranging Home Equipment or Services and Family Interventions Patient needs Dietary and Nutrition Services for: Adequate Nutrition, Nutritional Supplements and Nutritional Education Goals Patient will remain: free from falls Patient will perform bed mobility at: MOD I level of assist. Patient will complete transfers from bed to chair at: MOD I level of assist. Patient will ambulate: - (250 feet with a single-point cane at mod I) Patient will complete upper body dressing at: MOD I level of assist. Patient will complete lower body dressing at: MOD I level of assist. Patient will complete toileting at: MOD I level of assist. Patient will perform bathing at: MOD I level of assist. Patient will complete grooming at: MOD I level of assist. Patient will complete home management skills at: MOD I level of assist. Patient will achieve: 12 stairs (12 steps with 1 handrail at mod I) Patient will have pain level of: of 3 or less and - Patient's skin will: remain intact Patient will receive: adequate nutrition. Discharge Planning Estimated Length of stay (days): 21 Anticipated D/C Destination: Home with Outpt Therapy Was Preadmission Assessment Accurate?: Yes
[2023-01-10 19:40] VITALS: BP 143/62; PULSE 89; RESP 18; TEMP 36.6; O2SAT 94
[2023-01-10 21:00] VITALS: BMI 24.2
[2023-01-10] MEDS: Benzonatate 100 MG Capsule PO (21:36)
[2023-01-10] MEDS: MELATONIN 10 MG TABLET 5 MG PO (21:38)
[2023-01-10 21:39] VITALS: PULSE 89
[2023-01-10 22:00] VITALS: PULSE 89; RESP 17; O2SAT 97
[2023-01-11 05:55] LABS: Absolute Lymphocyte Count 0.97 X10^3/uL (0.83-4.51); Absolute Neutrophil Count 1.9 X10^3/uL (2.0-7.7); Basophil# 0.06 X10^3/uL; Basophil% 1.6 % (0-1); Eosinophil# 0.14 X10^3/uL; Eosinophils% 3.8 % (0-5); Hematocrit 31.9 % (37-47); Hemoglobin 10.4 g/dL (12.0-15.0); Lymphocyte # 0.97 X10^3/ul (0.83-4.51); Mean Corp Hgb Conc 32.6 g/dL (32-36); Mean Corpuscular Hgb 30.7 pg (27.0-32.0); Mean Corpuscular Volume 94.1 fL (81-99); Mean Platelet Vol. 9.1 fl (6.2-12.0); Monocyte# 0.47 X10^3/uL; Monocyte% 12.6 % (0-10); NRBC Flagged by Analyzer 0 % (0-5); Neutrophil # 1.92 X10^3/uL (2.7-7.7); Neutrophil % 51.4 % (47-70); Platelet Count 238 K/mm3 (150-450); RBC Distribution Width CV 14.5 % (11.6-14.6); Red Blood Count 3.39 M/mm3 (4.2-5.4); White Blood Count 3.7 K/mm3 (4.4-11.0)
[2023-01-11] MEDS: Gabapentin 100 MG Capsule 200 MG PO ×3 (06:22→21:28)
[2023-01-11] MEDS: Acetaminophen 500 MG Tablet 1000 MG PO ×3 (06:22→21:29)
[2023-01-11] MEDS: Methocarbamol 500 MG Tablet PO ×2 (06:22→14:12)
[2023-01-11 06:41] LABS: Anion Gap 2 (5-15); BUN 17 mg/dL (7-18); BUN/Creat Ratio 27.6 RATIO (10-20); Calcium,Total 8.6 mg/dL (8.5-10.1); Chloride 107 mmol/L (98-107); Creatinine, Serum 0.62 mg/dL (0.55-1.02); EST Glomerular Filtration Rate 99 mL/min (>60); Est Glom Filt Rate - Afr Amer 120 mL/min (>60); Glucose 102 mg/dL (74-106); Potassium 3.3 mmol/L (3.5-5.1); Sodium Level 139 mmol/L (136-145)
[2023-01-11 07:41] VITALS: BP 165/69; PULSE 96; RESP 15; TEMP 36.3; O2SAT 96
[2023-01-11 08:18] LABS: Hemoglobin A1c 5.3 % (3.8-5.6)
[2023-01-11] MEDS: Aspirin 81 MG TAB.CHEW PO (08:42)
[2023-01-11 08:43] VITALS: BP 165/69; PULSE 96
[2023-01-11] MEDS: Senna/Docusate Sodium 1 Tablet 2 TABLET PO ×2 (08:43→21:29)
[2023-01-11] MEDS: Calcium Carbonate 500 MG Tablet PO ×3 (08:43→16:58)
[2023-01-11] MEDS: Metoprolol Tartrate 25 MG Tablet PO (08:43)
[2023-01-11] MEDS: Pantoprazole Sodium 40 MG Tablet PO (08:43)
[2023-01-11] MEDS: guaiFENesin 600 MG Tablet PO (08:43)
[2023-01-11] MEDS: Clopidogrel Bisulfate 75 MG Tablet PO (08:43)
[2023-01-11] MEDS: Lisinopril 20 MG Tablet PO (08:43)
[2023-01-11] MEDS: traMADol 50 MG Tablet PO (08:49)
[2023-01-11 14:21] VITALS: BMI 24.2
--- NOTE | 2023-01-11 16:08 | CHAPLAIN ---
Type of Pastoral Visit _x__ Initial Visit ___ Follow-up Visit ___ On-call Visit ___ General Patient Visit ___ Spiritual Assessment ___ Family Conference ___ Bereavement ___ Rapid Response ___ Code Blue ___ Other (describe below) Pastoral Care Referral From _x__ Patient ___ Family ___ Nurse ___ Physician ___ Client Care Representative ___ Manager Pacu ___ Other (describe below) Sacrament/Intervention _x__ Active listening ___ Anointing ___ Denominational ___ Bereavement ___ Communion ___ Vannesa exploration ___ _x__ Life review _x__ Prayer ___ Reconciliation ___ Sacrament of Sick _x__ Supportive presence ___ Wedding ___ Other (describe below) Pastoral Comments sat with this patient who began to tell story of her health and went into many details about her life and family; pt talked without ceasing; made several attempts to have pt relate her current needs, feelings, and concerns; pt did ask for prayer and was expressive of thanks for time given
--- NOTE | 2023-01-11 16:22 | PN_ITS ---
Subjective Subjective Afebrile VSS-systolics are frequently above goal. Has not been sleeping well so will continue the current antihypertensive regimen and try and get a good night's sleep and then see what the BP is. She is a little calmer today. Maintaining appropriate oxygen saturation on RA Oral intake is good. For the most part she is eating 75 to 100% of her meals. Occasionally she does 50 to 74%. Discussed with nursing - no problems that need addressed Reviewed the PT/OT/ST notes Medication list reviewed. Jennifer denies lightheadedness, vertigo, CP, SOB at rest, SOB with exertion, cough, nausea, vomiting, diarrhea, constipation, dysuria, calf pain and ankle swelling. She is still having some bloating and abd pain and she has some pain in the R low back. Objective Data Objective Data Vital Signs: Vital Signs Temp Pulse Resp BP Pulse Ox O2 Del Method 97.3 F L 96 15 165/69 H 96 Room Air 01/11/23 07:41 01/11/23 08:43 01/11/23 07:41 01/11/23 08:43 01/11/23 07:41 01/11/23 07:41 Oxygen Delivery Method Room Air Weight: 136 lb 14.513 oz Body Mass Index (BMI) 24.2 Intake & Output: Intake and Output for Last 24 Hours 01/09/23 01/10/23 01/11/23 23:59 23:59 23:59 Intake Total 1140 / 1140 1910 / 1910 240 / 240 Output Total 1925 / 1925 1550 / 1550 200 / 200 Balance -785 / -785 360 / 360 40 / 40 Medical Nutrition Assessment Dietitian: Malnutrition Criteria Met Start: 01/08/23 12:44 Freq: Status: Active Protocol: Document 01/08/23 12:44 LIANNA (Rec: 01/08/23 12:44 LIANNA [id number]) Nutrition Malnutrition Evidence of Malnutrition Exists Yes Malnutrition (severe): Acute Illness/Injury Evidenced By Suboptimal Energy Intake ( Severe),Weight Loss (Severe) Clinical Problem Acute Disease or Injury Related Malnutrition Etiology related to recent surgery and inadequate energy intake Signs/Symptoms as evidenced by meeting <50-75 % of est nutritional needs and 9.3% unintentional wt loss x < 1 month Status Active Problem Recommendation Dietitian Recommendations/Changes Will change diet to Regular low fiber w/ 4 oz ensure plus high protein 3x/day w/ meals per pt preference (vs medpass) Will monitor for changes in pt nutritional status and adjust ONS as indicated. Lab / Micro Data Result Diagrams: 01/11/23 05:42 01/11/23 05:42 Labs: Laboratory Results - last 24 hr 01/11/23 05:42: WBC 3.7 L, RBC 3.39 L, Hgb 10.4 L, Hct 31.9 L, MCV 94.1, MCH 30.7, MCHC 32.6, RDW Std Deviation 49.0 H, RDW Coeff of Aurelio 14.5, Plt Count 238, MPV 9.1, Immature Gran % (Auto) 4.600 H, Neut % (Auto) 51.4, Lymph % (Auto) 26.0, [place] % (Auto) 12.6 H, Eos % (Auto) 3.8, Baso % (Auto) 1.6 H, Absolute Neuts (auto) 1.9 L, Absolute Lymphs (auto) 0.97, Nucleated RBC % 0 01/11/23 05:42: Sodium 139, Potassium 3.3 L, Chloride 107, Carbon Dioxide 30.0, Anion Gap 2 L, BUN 17, Creatinine 0.62, Estim Creat Clear Calc 36.50, Est GFR (MDRD) Af Amer 120, Est GFR (MDRD) Non-Af 99, BUN/Creatinine Ratio 27.6 H, Glucose 102, Calcium 8.6 01/11/23 05:42: Hemoglobin A1c 5.3 Physical Exam Const alert, oriented x3 and no apparent distress Constitutional Narrative: Still very talkative but, no flight of ideas today and she is able to stay on topic mostly when talking with me. General Appearance: cooperative Resp normal respiratory effort, normal air movement and clear to auscultation bilaterally Cardio regular rhythm and no gallops Cardio Narrative: resting HR is high and the MM are dry......I encouraged her to increase her water intake. GI normal to inspection, nondistended, normoactive bowel sounds, soft to palpation and non-tender Extremity no calf tenderness General Extremity: edema Skin General Skin Exam: no breakdown Rashes: no rashes Neuro Neuro Narrative: very mild L facial droop Having trouble with memory. Her dtr has noticed this since she had the stroke and Nina has taken over the medications and the finances since then. She also tells me that the Gabapentin makes her confused and she has had some falls so we are going to try and wean it off prior to DC. I do not think the pain in the back is radicular.......It may be due to the large retroperitoneal nodes. Psych cooperative Psych Narrative: Not depressed. Anxious at times and this makes the BP increase. Assessment & Plan Assessment/Plan (1) Physical debility: (2) Neuroendocrine neoplasm of gastrointestinal tract: (3) S/P colon resection: (4) History of CVA (cerebrovascular accident): (5) Acute blood loss as cause of postoperative anemia: (6) Abnormal LFTs: (7) Leukopenia: (8) Osteopenia: (9) Uterine prolapse: (10) Insomnia: (11) HTN (hypertension): (12) Grade I diastolic dysfunction: (13) Left atrial enlargement: (14) Pulmonary hypertension: (15) Hot flashes: (16) Cognitive dysfunction: PLAN: Plan 1. Continue therapy 2. Change metoprolol to metoprolol XL 50 mg p.o. nightly. 3. Decrease lisinopril to 20 mg daily in the a.m. 4. Change Xanax to 0.25 mg at 9 PM nightly for chronic insomnia and anxiety 5. DC Plavix and continue aspirin 81 mg p.o. daily. It has been greater than 28 days since she was placed on dual antiplatelet agents for strokes. 6. Start Lovenox 40 mg subcu daily since it has been greater than 7 days since her surgery. 7. Supplement potassium and recheck in a few days 8. I urged her to increase her water intake Charges/Coding Visit Charges Inpatient E&M: 00133 Subs Hosp L2
[2023-01-11] MEDS: Potassium Chloride Oral Tablet 20 MEQ 40 MEQ PO (16:59)
[2023-01-11 19:17] VITALS: BP 127/66; PULSE 97; RESP 18; TEMP 36.5; O2SAT 98
[2023-01-11 21:17] VITALS: PULSE 93
[2023-01-11] MEDS: Metoprolol(XL)Succ 50 MG Tablet PO (21:17)
[2023-01-11] MEDS: ALPRAZolam 0.25 MG Tablet PO (21:45)
[2023-01-11 21:47] VITALS: BMI 24.2
[2023-01-11 22:00] VITALS: PULSE 97; RESP 18; O2SAT 98
[2023-01-12 05:29] LABS: Cholesterol 114 mg/dL (200); High Density Lipoprotein 19 mg/dL; Triglycerides 379 mg/dL; Very Low Density Lipoprotein 76 mg/dL (5-40)
[2023-01-12] MEDS: Acetaminophen 500 MG Tablet 1000 MG PO ×3 (05:42→21:22)
[2023-01-12] MEDS: Enoxaparin 40 MG/0.4 ML Syringe SC (05:42)
[2023-01-12] MEDS: Gabapentin 100 MG Capsule 200 MG PO ×3 (05:42→21:22)
[2023-01-12 06:00] VITALS: BMI 24.4
[2023-01-12 08:38] VITALS: BP 155/82; PULSE 95; RESP 17; TEMP 36.6; O2SAT 96
[2023-01-12] MEDS: Pantoprazole Sodium 40 MG Tablet PO (09:12)
[2023-01-12] MEDS: Senna/Docusate Sodium 1 Tablet 2 TABLET PO (09:12)
[2023-01-12] MEDS: Aspirin 81 MG TAB.CHEW PO (09:12)
[2023-01-12] MEDS: Calcium Carbonate 500 MG Tablet PO ×3 (09:12→17:22)
[2023-01-12] MEDS: Lisinopril 20 MG Tablet PO (09:13)
[2023-01-12 11:42] VITALS: BMI 24.4
[2023-01-12] MEDS: traMADol 50 MG Tablet PO (17:21)
[2023-01-12 19:12] VITALS: BP 148/79; PULSE 107; RESP 16; TEMP 36.4; O2SAT 96
[2023-01-12 21:07] VITALS: BMI 24.4
[2023-01-12 21:22] VITALS: PULSE 96
[2023-01-12] MEDS: Atorvastatin Calcium 40 MG Tablet PO (21:22)
[2023-01-12] MEDS: Metoprolol(XL)Succ 50 MG Tablet PO (21:22)
[2023-01-12] MEDS: Methocarbamol 500 MG Tablet PO (21:25)
[2023-01-12 21:28] VITALS: PULSE 96; RESP 17; O2SAT 97
[2023-01-13] MEDS: Enoxaparin 40 MG/0.4 ML Syringe SC (05:56)
[2023-01-13] MEDS: Acetaminophen 500 MG Tablet 1000 MG PO ×3 (05:56→21:28)
[2023-01-13] MEDS: Gabapentin 100 MG Capsule 200 MG PO (05:57)
[2023-01-13 07:15] VITALS: BP 160/80; PULSE 84; RESP 16; TEMP 36.9
[2023-01-13] MEDS: Lisinopril 20 MG Tablet PO (09:15)
[2023-01-13] MEDS: Pantoprazole Sodium 40 MG Tablet PO (09:16)
[2023-01-13] MEDS: Calcium Carbonate 500 MG Tablet PO ×3 (09:16→17:01)
[2023-01-13] MEDS: Aspirin 81 MG TAB.CHEW PO (09:16)
[2023-01-13] MEDS: traMADol 50 MG Tablet PO ×2 (11:07→18:35)
--- NOTE | 2023-01-13 12:15 | PCM.PROGNOTE ---
Subjective Subjective Jennifer was seen on team rounds today. Her daughter Nina was present in the room. After the stroke on 11/27/22 Nina has taken over management of medications and finances. Nina lives across the street from her mother. Afebrile Systolic blood pressure is consistently elevated and has ranged from 127 on 1 occasion to 165/69 over the past 2 days. Diastolic is always within goal. Heart rate is generally in the 90s but this a.m. was 84. She is maintaining appropriate oxygen saturation on room air. The blood sugar record was reviewed and blood sugars are under excellent control with no hypoglycemia. She is eating 75 to 100% of most of her meals. Nursing notes were reviewed and there are no problems. PT/OT/ST notes were reviewed. Medication list was reviewed. She is taking tramadol 50 mg once daily for the past few days. She had 2 bowel movements yesterday and none so far today. The lipid panel shows an elevated triglycerides of 379 with a total cholesterol of 114 and an LDL of 19. The HDL is also 19? Serotonin level is still pending. Jennifer is much calmer. She has had only 1 dose of Xanax and that was on 01/11/2023. She tells me that she slept pretty well last night. She got Robaxin at HS last night. Jennifer denies chest pain, palpitations, shortness of breath, cough, nausea/vomiting, diarrhea, calf pain and dysuria. She is still having hot flashes but, they are not so bad anymore and she is tolerating. Objective Data Objective Data Vital Signs: Vital Signs Temp Pulse Resp BP Pulse Ox O2 Del Method 98.4 F 84 16 160/80 H 97 Room Air 01/13/23 07:15 01/13/23 07:15 01/13/23 07:15 01/13/23 07:15 01/12/23 21:28 01/13/23 07:15 Oxygen Delivery Method Room Air Weight: 138 lb 0.15 oz Body Mass Index (BMI) 24.4 Intake & Output: Intake and Output for Last 24 Hours 01/11/23 01/12/23 01/13/23 23:59 23:59 23:59 Intake Total 240 / 240 200 / 200 Output Total 400 / 400 1000 / 1000 500 / 500 Balance -160 / -160 -1000 / -1000 -300 / -300 Medical Nutrition Assessment Dietitian: Malnutrition Criteria Met Start: 01/08/23 12:44 Freq: Status: Active Protocol: Document 01/08/23 12:44 LIANNA (Rec: 01/08/23 12:44 SLA [id number]) Nutrition Malnutrition Evidence of Malnutrition Exists Yes Malnutrition (severe): Acute Illness/Injury Evidenced By Suboptimal Energy Intake ( Severe),Weight Loss (Severe) Clinical Problem Acute Disease or Injury Related Malnutrition Etiology related to recent surgery and inadequate energy intake Signs/Symptoms as evidenced by meeting <50-75 % of est nutritional needs and 9.3% unintentional wt loss x < 1 month Status Active Problem Recommendation Dietitian Recommendations/Changes Will change diet to Regular low fiber w/ 4 oz ensure plus high protein 3x/day w/ meals per pt preference (vs medpass) Will monitor for changes in pt nutritional status and adjust ONS as indicated. Lab / Micro Data Result Diagrams: 01/11/23 05:42 01/11/23 05:42 Physical Exam Const alert and oriented x3 General Appearance: cooperative and well kempt HEENT Mouth: dry mucous membranes Chest Chest: symmetrical chest wall rise Resp normal respiratory effort, normal air movement and clear to auscultation bilaterally Effort and Inspection: able to speak in complete sentences Cardio regular rhythm Cardio Narrative: resting /hr is in the 90's GI GI Narrative: Mildly distended. She feels bloated. BS's are present in all quadrants and then are normal. Tender to palpation in all quadrants. No guarding. The Simethicone is helping with the gas/burping. Denies constipation and diarrhea. Palpation: soft Back/Spine no CVA tenderness Extremity no calf tenderness and no pedal edema Skin General Skin Exam: no breakdown Rashes: no rashes Neuro Neuro Narrative: She has a mild L facial droop.......when she smiles it becomes less obvious. 5/5 strength throughout. No sensory deficits. No ataxia. No extinction. Occasional trouble word finding. Psych Psych Narrative: She is much calmer than she was at admission. She still is verbose but, no flight of ideas and can answer a direct question without diverging. She is pleasant and is able to follow instruction. 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 (16) Cognitive dysfunction: PLAN: Plan 1. Continue therapy 2. Check a BMP and a CBC in the AM. 3. Recheck a lipid panel in the AM. I do not believe that both her LDL and her HDL are 19 and I question the veracity of this lab. 4. Increase metoprolol XL to 75 mg p.o. nightly Charges/Coding Visit Charges Inpatient E&M: 15494 Subs Hosp L2
[2023-01-13 12:54] VITALS: BMI 24.4
--- NOTE | 2023-01-13 14:00 | CASEMGMT ---
Social Work IDT met with pt and dgt Nina for Team meeting. Discussed patient's progress in PT/OT/ST/SN. ALY educated pt to Medicare approving 13 days with DC date of 01/20. IDT, pt and dgt agreeable that pt will be ready to return home alone at that time. Pt dgt confirms family will be available to check in on pt regularly and assist as needed. Therapy is recommending outpatient Speech therapy. Pt states that she started Speech Therapy at [facility] and would like to continue with them at time of d/c. Pt has all needed DME. Pt dgt able to provide transportation home. ALY will arrange for outpt KIMBERLY Peña
[2023-01-13 20:03] VITALS: BP 134/71; PULSE 98; RESP 16; TEMP 36.4; O2SAT 97
[2023-01-13] MEDS: Gabapentin 100 MG Capsule PO (21:28)
[2023-01-13 21:50] VITALS: PULSE 98
[2023-01-13] MEDS: Metoprolol(XL)Succ 25 MG Tablet 75 MG PO (21:50)
[2023-01-13] MEDS: Methocarbamol 500 MG Tablet PO (21:50)
[2023-01-14] MEDS: Enoxaparin 40 MG/0.4 ML Syringe SC (05:23)
[2023-01-14] MEDS: Acetaminophen 500 MG Tablet 1000 MG PO ×3 (05:23→21:19)
[2023-01-14] MEDS: Gabapentin 100 MG Capsule PO ×3 (05:23→21:19)
[2023-01-14 05:25] LABS: Hematocrit 33.5 % (37-47); Hemoglobin 10.9 g/dL (12.0-15.0); Mean Corp Hgb Conc 32.5 g/dL (32-36); Mean Corpuscular Hgb 30.4 pg (27.0-32.0); Mean Corpuscular Volume 93.3 fL (81-99); Mean Platelet Vol. 9.1 fl (6.2-12.0); Platelet Count 223 K/mm3 (150-450); RBC Distribution Width CV 14.6 % (11.6-14.6); RBC Distribution Width SD 49.5 fl (35.1-43.9); Red Blood Count 3.59 M/mm3 (4.2-5.4); White Blood Count 4.7 K/mm3 (4.4-11.0)
[2023-01-14] MEDS: traMADol 50 MG Tablet PO ×2 (05:29→21:19)
[2023-01-14 05:46] LABS: Anion Gap 1 (5-15); BUN 15 mg/dL (7-18); BUN/Creat Ratio 23.1 RATIO (10-20); Calcium,Total 8.7 mg/dL (8.5-10.1); Chloride 109 mmol/L (98-107); Cholesterol 88 mg/dL (200); Creatinine, Serum 0.65 mg/dL (0.55-1.02); EST Glomerular Filtration Rate 93 mL/min (>60); Est Glom Filt Rate - Afr Amer 112 mL/min (>60); Glucose 101 mg/dL (74-106); High Density Lipoprotein 25 mg/dL; Magnesium 2.3 mg/dL (1.6-2.6); Potassium 3.7 mmol/L (3.5-5.1); Sodium Level 140 mmol/L (136-145); Triglycerides 272 mg/dL; Very Low Density Lipoprotein 54 mg/dL (5-40)
[2023-01-14 07:30] VITALS: BP 141/73; PULSE 86; RESP 18; TEMP 36.6; O2SAT 96
[2023-01-14] MEDS: Aspirin 81 MG TAB.CHEW PO (08:02)
[2023-01-14] MEDS: Lisinopril 20 MG Tablet PO (08:02)
[2023-01-14] MEDS: Calcium Carbonate 500 MG Tablet PO ×3 (08:02→16:24)
[2023-01-14] MEDS: Pantoprazole Sodium 40 MG Tablet PO (08:03)
--- NOTE | 2023-01-14 11:08 | PCM.PROGNOTE ---
Subjective Subjective Afebrile VSS-blood pressure is better this morning with the increase in the metoprolol XL to 75 mg nightly Maintaining appropriate oxygen saturation on RA Oral intake is good Discussed with nursing - no problems that need addressed Reviewed the PT/OT/ST notes Medication list reviewed. She is taking tramadol 50 mg 1-2 times daily for pain. Has only had 1 dose of Xanax since it was ordered. She has taken Robaxin 500 mg at bedtime for the past 2 nights and this seems to be helping her insomnia. Gabapentin was decreased to 100 mg 3 times daily yesterday. All lab from today was personally reviewed. Hemoglobin is stable at 10.9. White blood cell count is normal today at 4.7. Platelets are normal. Sodium is normal at 140 and the potassium today is 3.7 following supplementation. The BUN is 15 which is down from 21 at admission. Creatinine is 0.65 which is stable. Magnesium is 2.3. Repeat lipid panel today shows the total cholesterol to be 88 with an LDL of 9 and an HDL of 25. Triglycerides are 272 and the total cholesterol is 88. Her dtr tells me that when she took a statin her LDL decreased to 4 and it was discontinued. Jennifer denies lightheadedness, vertigo, CP, SOB at rest, SOB with exertion, cough, nausea, vomiting, abd pain, diarrhea, constipation, dysuria, calf pain and ankle swelling. She is still having some bloating. She is sleeping OK at night. Objective Data Objective Data Vital Signs: Vital Signs Temp Pulse Resp BP Pulse Ox O2 Del Method 97.8 F 86 18 141/73 H 96 Room Air 01/14/23 07:30 01/14/23 07:30 01/14/23 07:30 01/14/23 07:30 01/14/23 07:30 01/14/23 07:30 Oxygen Delivery Method Room Air Weight: 138 lb 0.15 oz Body Mass Index (BMI) 24.4 Intake & Output: Intake and Output for Last 24 Hours 01/12/23 01/13/23 01/14/23 23:59 23:59 23:59 Intake Total 320 / 320 120 / 120 Output Total 1000 / 1000 700 / 700 200 / 200 Balance -1000 / -1000 -380 / -380 -80 / -80 Medical Nutrition Assessment Dietitian: Malnutrition Criteria Met Start: 01/08/23 12:44 Freq: Status: Active Protocol: Document 01/08/23 12:44 LIANNA (Rec: 01/08/23 12:44 SLA [id number]) Nutrition Malnutrition Evidence of Malnutrition Exists Yes Malnutrition (severe): Acute Illness/Injury Evidenced By Suboptimal Energy Intake ( Severe),Weight Loss (Severe) Clinical Problem Acute Disease or Injury Related Malnutrition Etiology related to recent surgery and inadequate energy intake Signs/Symptoms as evidenced by meeting <50-75 % of est nutritional needs and 9.3% unintentional wt loss x < 1 month Status Active Problem Recommendation Dietitian Recommendations/Changes Will change diet to Regular low fiber w/ 4 oz ensure plus high protein 3x/day w/ meals per pt preference (vs medpass) Will monitor for changes in pt nutritional status and adjust ONS as indicated. Lab / Micro Data Result Diagrams: 01/14/23 05:10 01/14/23 05:10 Labs: Laboratory Results - last 24 hr 01/14/23 05:10: Sodium 140, Potassium 3.7, Chloride 109 H, Carbon Dioxide 30.0, Anion Gap 1 L, BUN 15, Creatinine 0.65, Estim Creat Clear Calc 36.50, Est GFR (MDRD) Af Amer 112, Est GFR (MDRD) Non-Af 93, BUN/Creatinine Ratio 23.1 H, Glucose 101, Calcium 8.7, Magnesium 2.3, Triglycerides 272 H, Cholesterol 88, LDL Cholesterol 9, VLDL Cholesterol 54 H, HDL Cholesterol 25 L 01/14/23 05:10: WBC 4.7, RBC 3.59 L, Hgb 10.9 L, Hct 33.5 L, MCV 93.3, MCH 30.4, MCHC 32.5, RDW Std Deviation 49.5 H, RDW Coeff of Aurelio 14.6, Plt Count 223, MPV 9.1 Physical Exam Const alert and no apparent distress General Appearance: cooperative HEENT moist oral mucous membranes Resp normal respiratory effort, no use of accessory muscles and clear to auscultation bilaterally Effort and Inspection: Negative for tachypneic or labored Cardio regular rate, regular rhythm and no gallops GI normal to inspection, nondistended, normoactive bowel sounds, non-tender and non-distended GI Narrative: no guarding with palpation Extremity Negative for no calf tenderness General Extremity: Negative for edema Skin General Skin Exam: no breakdown Rashes: no rashes Neuro Neuro Narrative: Much calmer now. Not jumping from 1 topic to the next and she is attentive to what is being said to her. Speech: speech normal Psych affect normal Assessment & Plan Assessment/Plan (1) Severe protein-calorie malnutrition: (2) Physical debility: (3) S/P colon resection: (4) Neuroendocrine neoplasm of gastrointestinal tract: (5) Acute blood loss as cause of postoperative anemia: (6) History of CVA (cerebrovascular accident): (7) Insomnia: (8) HTN (hypertension): (9) Uterine prolapse: (10) Pulmonary hypertension: (11) Cognitive dysfunction: PLAN: Plan 1, Continue therapy 2. Increase Metoprolol XL to 100 mg Q HS 3. DC the Atorvastatin 4. Gabapentin decreased to 100 mg TID. Charges/Coding Visit Charges Inpatient E&M: 29134 Subs Hosp L2
[2023-01-14 11:12] VITALS: BMI 24.4
[2023-01-14 20:00] VITALS: BP 116/58; PULSE 98; RESP 16; TEMP 36.6; O2SAT 98
[2023-01-14] MEDS: Methocarbamol 500 MG Tablet PO (21:18)
[2023-01-14 21:21] VITALS: BP 116/58; PULSE 98
[2023-01-14] MEDS: Metoprolol(XL)Succ 25 MG Tablet 75 MG PO (21:21)
[2023-01-14 21:25] VITALS: BMI 24.4
[2023-01-15] MEDS: traMADol 50 MG Tablet PO ×2 (03:59→21:07)
[2023-01-15] MEDS: Acetaminophen 500 MG Tablet 1000 MG PO ×3 (05:41→21:08)
[2023-01-15] MEDS: Gabapentin 100 MG Capsule PO ×3 (05:41→21:08)
[2023-01-15] MEDS: Enoxaparin 40 MG/0.4 ML Syringe SC (05:54)
[2023-01-15 07:49] VITALS: BP 148/76; PULSE 82; RESP 15; TEMP 36.3; O2SAT 97
[2023-01-15] MEDS: Calcium Carbonate 500 MG Tablet PO ×3 (08:53→18:09)
[2023-01-15] MEDS: Pantoprazole Sodium 40 MG Tablet PO (08:53)
[2023-01-15] MEDS: Aspirin 81 MG TAB.CHEW PO (08:53)
[2023-01-15] MEDS: Lisinopril 20 MG Tablet PO (08:54)
[2023-01-15 15:25] VITALS: BMI 24.4
[2023-01-15 20:00] VITALS: BP 166/79; PULSE 89; RESP 18; TEMP 37.1; O2SAT 94
[2023-01-15] MEDS: Methocarbamol 500 MG Tablet PO (21:07)
[2023-01-15 21:08] VITALS: BP 166/79; PULSE 89
[2023-01-15] MEDS: Metoprolol(XL)Succ 25 MG Tablet 75 MG PO (21:08)
[2023-01-15 21:17] VITALS: BMI 24.4
[2023-01-16] MEDS: Enoxaparin 40 MG/0.4 ML Syringe SC (06:21)
[2023-01-16] MEDS: Gabapentin 100 MG Capsule PO ×3 (06:21→21:16)
[2023-01-16] MEDS: Acetaminophen 500 MG Tablet 1000 MG PO ×3 (06:21→21:16)
[2023-01-16 08:00] VITALS: BP 160/78; PULSE 81; RESP 17; TEMP 36.1; O2SAT 96
[2023-01-16] MEDS: Calcium Carbonate 500 MG Tablet PO ×3 (08:12→17:11)
[2023-01-16] MEDS: Aspirin 81 MG TAB.CHEW PO (08:12)
[2023-01-16] MEDS: Pantoprazole Sodium 40 MG Tablet PO (08:12)
[2023-01-16] MEDS: Lisinopril 20 MG Tablet PO (08:12)
[2023-01-16 14:11] VITALS: BMI 24.4
[2023-01-16 19:29] VITALS: BP 152/68; PULSE 95; RESP 17; TEMP 36.9; O2SAT 97
[2023-01-16 21:16] VITALS: BP 152/68; PULSE 95
[2023-01-16] MEDS: Metoprolol(XL)Succ 100 MG Tablet PO (21:16)
[2023-01-16] MEDS: Methocarbamol 500 MG Tablet PO (21:18)
[2023-01-17 00:07] LABS: Serotonin, Serum 47 ng/mL (8-217)
[2023-01-17] MEDS: Acetaminophen 500 MG Tablet 1000 MG PO ×3 (05:11→21:17)
[2023-01-17] MEDS: Gabapentin 100 MG Capsule PO ×3 (05:12→21:15)
[2023-01-17] MEDS: traMADol 50 MG Tablet PO ×2 (05:12→21:16)
[2023-01-17] MEDS: Enoxaparin 40 MG/0.4 ML Syringe SC (05:15)
[2023-01-17 08:15] VITALS: BP 157/83; PULSE 91; RESP 15; TEMP 36.6; O2SAT 97
[2023-01-17] MEDS: Calcium Carbonate 500 MG Tablet PO ×3 (08:28→17:02)
[2023-01-17] MEDS: Aspirin 81 MG TAB.CHEW PO (08:28)
[2023-01-17] MEDS: Lisinopril 20 MG Tablet PO ×2 (08:28→21:17)
[2023-01-17] MEDS: Pantoprazole Sodium 40 MG Tablet PO (08:28)
--- NOTE | 2023-01-17 11:33 | PCM.PROGNOTE ---
Subjective Subjective Afebrile VSS-blood pressures since Tuesday morning have ranged from 148/76 to 166/79. Maintaining appropriate oxygen saturation on RA Oral intake is good Weight is up approximately 1 pounds since admission. Discussed with nursing - no problems that need addressed Reviewed the PT/OT/ST notes Medication list reviewed. She had no tramadol yesterday and this morning she took 50 mg prior to therapy. She is sleeping well at night and is taking the Robaxin only at night.......it helps her to sleep. She had some abd pain around 5 AM and it woke her up but, after she had an Oxycodone the pain got better. Objective Data Objective Data Vital Signs: Vital Signs Temp Pulse Resp BP Pulse Ox O2 Del Method 98 F 91 15 157/83 H 97 Room Air 01/17/23 08:15 01/17/23 08:15 01/17/23 08:15 01/17/23 08:15 01/17/23 08:15 01/17/23 08:15 Oxygen Delivery Method Room Air Weight: 138 lb 0.15 oz Body Mass Index (BMI) 24.4 Intake & Output: Intake and Output for Last 24 Hours 01/15/23 01/16/23 01/17/23 23:59 23:59 23:59 Intake Total 200 / 200 440 / 440 Balance 200 / 200 440 / 440 Medical Nutrition Assessment Dietitian: Malnutrition Criteria Met Start: 01/08/23 12:44 Freq: Status: Active Protocol: Document 01/08/23 12:44 LIANNA (Rec: 01/08/23 12:44 LIANNA [id number]) Nutrition Malnutrition Evidence of Malnutrition Exists Yes Malnutrition (severe): Acute Illness/Injury Evidenced By Suboptimal Energy Intake ( Severe),Weight Loss (Severe) Clinical Problem Acute Disease or Injury Related Malnutrition Etiology related to recent surgery and inadequate energy intake Signs/Symptoms as evidenced by meeting <50-75 % of est nutritional needs and 9.3% unintentional wt loss x < 1 month Status Active Problem Recommendation Dietitian Recommendations/Changes Will change diet to Regular low fiber w/ 4 oz ensure plus high protein 3x/day w/ meals per pt preference (vs medpass) Will monitor for changes in pt nutritional status and adjust ONS as indicated. Lab / Micro Data Result Diagrams: 01/14/23 05:10 01/14/23 05:10 Labs: Laboratory Results - last 24 hr 01/11/23 05:42: Serotonin 47 Assessment & Plan Assessment/Plan (1) Severe protein-calorie malnutrition: (2) Physical debility: (3) S/P colon resection: (4) Neuroendocrine neoplasm of gastrointestinal tract: (5) Acute blood loss as cause of postoperative anemia: (6) History of CVA (cerebrovascular accident): (7) Insomnia: (8) HTN (hypertension): (9) Uterine prolapse: (10) Pulmonary hypertension: (11) Cognitive dysfunction: PLAN: Plan 1. Continue therapy. 2. Plan DC for . 3. At DC will decrease the Gabapentin to 100 mg BID and then in 1 week to 100 mg at HS only. 4. Increase the Lisinopril to BID and check another BMP on Tuesday. Charges/Coding Visit Charges Inpatient E&M: 87593 Subs Hosp L2
[2023-01-17 17:00] VITALS: BMI 24.4
[2023-01-17 19:54] VITALS: BP 125/68; PULSE 100; RESP 17; TEMP 36.2; O2SAT 98
[2023-01-17 21:15] VITALS: BP 125/68; PULSE 100
[2023-01-17] MEDS: Methocarbamol 500 MG Tablet PO (21:15)
[2023-01-17] MEDS: Metoprolol(XL)Succ 100 MG Tablet PO (21:15)
[2023-01-17 23:22] VITALS: BMI 24.4
[2023-01-18] MEDS: Acetaminophen 500 MG Tablet 1000 MG PO ×3 (05:31→21:06)
[2023-01-18] MEDS: Gabapentin 100 MG Capsule PO ×3 (05:31→21:06)
[2023-01-18] MEDS: Enoxaparin 40 MG/0.4 ML Syringe SC (05:31)
[2023-01-18 07:22] VITALS: BP 150/84; PULSE 95; RESP 16; TEMP 36.3; O2SAT 97
[2023-01-18] MEDS: Pantoprazole Sodium 40 MG Tablet PO (08:40)
[2023-01-18] MEDS: Calcium Carbonate 500 MG Tablet PO ×3 (08:40→15:52)
[2023-01-18] MEDS: Lisinopril 20 MG Tablet PO ×2 (08:41→21:06)
[2023-01-18] MEDS: Aspirin 81 MG TAB.CHEW PO (08:41)
--- NOTE | 2023-01-18 11:22 | CASEMGMT ---
Social Work Received call from the dtr with clarifying questions for pt's DC. SW spoke with PT and OT to get answers. SW returned call to dtr to explain pt is adlib in room, safe to DC home alone, not recommending driving at this time, and emailed requested community resources to dtr, i.e. [place], RO[employer], [employer], [employer], etc. RADHA DentW
[2023-01-18 14:31] VITALS: BMI 24.4
--- NOTE | 2023-01-18 18:48 | NURSING ---
Addendum entered by Zari Botello 01/18/23 18:50: reassured that everything is okay and assisted her to rest in recliner. Original Note: pt came to nurses station several times concerned about black cars in the parking lot and thinking they are going to break in.
[2023-01-18 21:06] VITALS: BP 136/62; PULSE 95
[2023-01-18] MEDS: Metoprolol(XL)Succ 100 MG Tablet PO (21:06)
[2023-01-18 21:20] VITALS: BP 120/75; PULSE 98; RESP 18; TEMP 36.9; O2SAT 96
[2023-01-18 21:22] VITALS: PULSE 98; RESP 18; O2SAT 96
[2023-01-19] MEDS: traMADol 50 MG Tablet PO (02:59)
[2023-01-19 03:10] VITALS: BMI 24.4
[2023-01-19] MEDS: Acetaminophen 500 MG Tablet 1000 MG PO ×3 (05:15→21:11)
[2023-01-19] MEDS: Enoxaparin 40 MG/0.4 ML Syringe SC (05:16)
[2023-01-19] MEDS: Gabapentin 100 MG Capsule PO ×3 (05:16→21:11)
[2023-01-19 06:00] VITALS: BMI 24.5
[2023-01-19 06:35] LABS: Anion Gap 2 (5-15); BUN 20 mg/dL (7-18); BUN/Creat Ratio 34.4 RATIO (10-20); Calcium,Total 8.7 mg/dL (8.5-10.1); Chloride 108 mmol/L (98-107); Creatinine, Serum 0.58 mg/dL (0.55-1.02); EST Glomerular Filtration Rate 105 mL/min (>60); Est Glom Filt Rate - Afr Amer 128 mL/min (>60); Glucose 116 mg/dL (74-106); Potassium 3.7 mmol/L (3.5-5.1); Sodium Level 139 mmol/L (136-145)
[2023-01-19 08:12] VITALS: BP 157/62; PULSE 68; RESP 18; TEMP 36.6; O2SAT 96
[2023-01-19] MEDS: Lisinopril 20 MG Tablet PO ×2 (08:21→21:11)
[2023-01-19] MEDS: Calcium Carbonate 500 MG Tablet PO ×3 (08:21→16:59)
[2023-01-19] MEDS: Pantoprazole Sodium 40 MG Tablet PO (08:21)
[2023-01-19] MEDS: Aspirin 81 MG TAB.CHEW PO (08:21)
[2023-01-19] MEDS: Methocarbamol 500 MG Tablet PO (08:22)
[2023-01-19 12:31] VITALS: BMI 24.5
--- NOTE | 2023-01-19 13:31 | PCM.DC ---
Discharge Instructions Diet Discharge Diet: - (Low-fat, low salt. No concentrated sweets. ) Activity Discharge Activity: May Not Drive and May Shower Weight Bearing Status: Full weight bearing Dressing / Incision Call your doctor if you observe: Fever of 101 or Higher, Inability to urinate, Shortness of breath, Dizziness, Fainting spells, Swelling in the ankles, Chest pain, Increased palpitations (irregular heartbeat), Calf discomfort and Uncontrolled pain Follow Up Care Test Results: Test results from this visit will be discussed in further detail at your follow-up appointment, if applicable. 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 Attending Provider: Yanet Cabral Primary Care Provider: Isai Hercules Instructions Patient Instructions: VINNIE Additional Instructions / Restrictions: 1. Your BP and your HR have been mildly elevated the past 2 days and I suspect this is due to anxiety/worrying about going home. I also think this is the reason you do not sleep well at night. It can also cause abd cramping/nausea/lightheadedness. Sometimes when people age, felicity if they live alone, they worry a lot. They worry about their children and grandchildren, about someone breaking into the house, about what is going to happen to them in the future, about paying bills and having enough money, about their health and about others taking advantage of them etc. Talking to someone about this can help but, sometimes people need to take some medication. There is a drug called Buspar.........it is non-addictive and it only treats anxiety. You take it either 2 times a day or 3 times a day and it helps decrease anxiety. It is a much safer drug to use in someone your age with anxiety than other medications like Ativan or Valium. Sometimes people get anxious when they go to the doctor and their BP will go up......so the doctor increases the medication. When they get home and are relaxed the BP goes down and then they have lightheadedness and a low BP......the best way to treat this is to treat the anxiety, not increase the antihypertensive per se. 2. You have done very well in therapy and you are able to walk without a cane or a walker! That's great. We appreciate your hard work. Keep doing your exercises at home to keep those muscles toned. Daily exercise also helps to prevent memory loss. 3. The kind of tumor you had removed is called a neuroendocrine tumor. This kind of tumor can spread and it was also in your lymph nodes. You will need to follow up with an oncologist. I discussed your case with Dr. Rojas who is an oncologist here at the hospital. He would be happy to see you. He is associated with the [facility] in [place]. He would be able to follow you and if you need additional surgery or ablations he could refer you to [facility] in [place]. He is a very nice man and very caring. I think you will like him, I like him a lot. His office is in the big building behind [facility]. 4. Try and drink more water. Water keeps the stool soft so you don't get constipated and it helps things to move though your intestines. I would like you to drink at least 1500 cc's daily which is 50 ounces. 5. It was nice getting to know you and Nina and we are very happy with the progress you made. If you or Nina have any questions after you leave rehab please do not hesitate to call me. Office: [phone] CELL: [phone] Discharge Orders/Prescriptions Prescriptions: New gabapentin 100 mg Capsule 100 mg PO BID Qty: 21 0RF Rx Instructions: BID for 1 week then Q HS for 1 week and then DC methocarbamol 500 mg Tablet 500 mg PO TID PRN (Reason: Muscle Spasm) Qty: 30 0RF Rx Instructions: Take 1 at HS and may have a second during the day for back pain. pantoprazole 40 mg Tablet,Delayed Release (Dr/Ec) 40 mg PO DAILY Qty: 30 0RF simethicone 80 mg Tablet,Chewable 80 mg PO PCHS Qty: 120 0RF tramadol 50 mg Tablet 50 mg PO Q6H PRN PRN (Reason: Pain) Qty: 20 0RF Rx Instructions: Take every 6 H as needed for pain not relieved with Acetaminophen sennosides-docusate sodium [Stool Softener-Stimulant Laxat] 8.6-50 mg Tablet 1 tab-cap PO BID Qty: 60 0RF metoprolol succinate 100 mg Tablet Extended Release 24 Hr 100 mg PO 2100 Qty: 30 0RF Continued lisinopril 20 mg tablet 20 mg PO BID Label Comments: TAKE 1 TABLET BY MOUTH TWICE A DAY aspirin [Aspirin Childrens] 81 mg tablet,chewable 81 mg PO DAILY Label Comments: once a day calcium carbonate 200 mg calcium (500 mg) Tablet,Chewable 200 mg PO TID ondansetron 4 mg Tablet,Disintegrating 4 mg PO Q6H PRN (Reason: Nausea) Qty: 2215 0RF Changed acetaminophen 500 mg Tablet 1,000 mg PO Q8H PRN (Reason: pain) Qty: 1 0RF Discontinued furosemide 20 mg tablet 20 mg PO DAILY Label Comments: TAKE 1 TABLET BY MOUTH EVERY DAY rosuvastatin 20 mg Capsule, Sprinkle 20 mg PO QHS methocarbamol 500 mg Tablet 500 mg PO TID tramadol [Ultram] 50 mg Tablet 25 - 50 mg PO Q6H PRN PRN (Reason: Pain) Rx Instructions: 25mg pain 1-4 50mg pain 5-10 benzonatate [Tessalon Perles] 100 mg Capsule 100 mg PO TID PRN (Reason: Cough) simethicone 40 mg/0.6 mL Drops,Suspension 80 mg PO Q6H gabapentin 100 mg Capsule 200 mg PO TID metoprolol tartrate 25 mg Tablet 25 mg PO BID melatonin 5 mg Tablet 5 mg PO QHS guaifenesin 600 mg Tablet Extended Release 12hr 600 mg PO Q12H clopidogrel 75 mg tablet 75 mg PO DAILY omeprazole 40 mg capsule,delayed release(DR/EC) 40 mg PO DAILY naloxone 4 mg/actuation Reserve,Non-Aerosol 1 spray INTRANASAL Q3M Rx Instructions: spray 1 dose into ONE nostril; alternate nostrils w each dose until help arrives Referrals / Follow Up: Dr Enriquez [Other] - 01/21/23 11:15 am (Surgeon ) Isai Hercules MD [Primary Care Provider] - Angelica Rojas MD [Med Staff - Active Staff] - 01/27/23 9:30 am Disposition Disposition (needs filled in before D/C Order can be placed): Home, Self Care
[2023-01-19 19:00] VITALS: BP 153/76; PULSE 103; RESP 18; TEMP 36.6; O2SAT 98
[2023-01-19 21:01] VITALS: BP 142/83; PULSE 106
[2023-01-19 21:11] VITALS: BP 142/83; PULSE 106
[2023-01-19] MEDS: Metoprolol(XL)Succ 100 MG Tablet PO (21:11)
[2023-01-19] MEDS: ALPRAZolam 0.25 MG Tablet PO (22:01)
[2023-01-20] MEDS: Methocarbamol 500 MG Tablet PO (00:14)
[2023-01-20] MEDS: traMADol 50 MG Tablet PO (03:31)
[2023-01-20 03:59] VITALS: BMI 24.5
[2023-01-20] MEDS: Gabapentin 100 MG Capsule PO ×2 (06:33→14:19)
[2023-01-20] MEDS: Acetaminophen 500 MG Tablet 1000 MG PO ×2 (06:33→14:18)
[2023-01-20] MEDS: Enoxaparin 40 MG/0.4 ML Syringe SC (06:34)
[2023-01-20] MEDS: Pantoprazole Sodium 40 MG Tablet PO (08:07)
[2023-01-20] MEDS: Aspirin 81 MG TAB.CHEW PO (08:07)
[2023-01-20] MEDS: Lisinopril 20 MG Tablet PO (08:07)
[2023-01-20] MEDS: Calcium Carbonate 500 MG Tablet PO ×2 (08:07→12:05)
[2023-01-20 08:42] VITALS: BP 135/94; PULSE 107; RESP 18; TEMP 36.7; O2SAT 96
--- NOTE | 2023-01-20 13:54 | PCM.DC.SUM ---
Providers Date of Admission: 01/07/23 Date of Discharge: 01/20/23 Primary Care Physician: Dr. Isai Hercules MD none Reason For Visit: DEBILITY Diagnosis Discharge Diagnosis (1) Physical debility: Status: Acute Code(s): R53.81 - Other malaise (2) Neuroendocrine neoplasm of gastrointestinal tract: Status: Acute Code(s): D3A.8 - Other benign neuroendocrine tumors (3) S/P colon resection: Status: Acute Code(s): Z90.49 - Acquired absence of other specified parts of digestive tract Plan: R hemicolectomy with excision of neuroendocrine tumor in the terminal ileum. 03/22 nodes +. (4) Severe protein-calorie malnutrition: Status: Acute Code(s): E43 - Unspecified severe protein-calorie malnutrition (5) Acute blood loss as cause of postoperative anemia: Status: Acute Code(s): D62 - Acute posthemorrhagic anemia Plan: HGB has been stable between 10-11. (6) History of CVA (cerebrovascular accident): Status: Acute Code(s): Z86.73 - Personal history of transient ischemic attack (TIA), and cerebral infarction without residual deficits Plan: 11/27/22. (7) Cognitive dysfunction: Status: Acute Code(s): F09 - Unspecified mental disorder due to known physiological condition (8) Insomnia: Status: Chronic Code(s): G47.00 - Insomnia, unspecified (9) HTN (hypertension): Status: Chronic Code(s): I10 - Essential (primary) hypertension (10) Uterine prolapse: Status: Acute Code(s): N81.4 - Uterovaginal prolapse, unspecified (11) Pulmonary hypertension: Status: Acute Code(s): I27.20 - Pulmonary hypertension, unspecified Plan: Mild. PA systolic estimated at 40 in November of 2022. (12) Abnormal LFTs: Status: Acute Code(s): R79.89 - Other specified abnormal findings of blood chemistry Plan: mild (13) History of viral encephalitis: Status: Inactive Code(s): Z86.19 - Personal history of other infectious and parasitic diseases (14) Hot flashes: Status: Acute Code(s): R23.2 - Flushing Plan: This has improved since resection of the tumor. Due to carcinoid? (15) Left atrial enlargement: Status: Chronic Code(s): I51.7 - Cardiomegaly (16) Grade I diastolic dysfunction: Status: Chronic Code(s): I51.89 - Other ill-defined heart diseases (17) Osteopenia: Status: Chronic Code(s): M85.80 - Other specified disorders of bone density and structure, unspecified site (18) Leukopenia: Status: Resolved Code(s): D72.819 - Decreased white blood cell count, unspecified (19) Pulmonary nodule: Status: Acute Code(s): R91.1 - Solitary pulmonary nodule Plan: < 1 cm but, has mediastinal adenopathy on CT scan. Needs follow up. Plan 1. DC home today 2. Follow up with Dr. Hercules for primary care. 3. Has an appt with the surgeon already scheduled. 4. Follow up with oncology, Dr. Rojas, for neuroendocrine tumor with + nodes. 5. Consider treating anxiety with medication, consider Buspar. 6. Decrease the Gabapentin to 100 mg QHS in 1 week and then DC the following week......we have weaned the dose down with no change in the R posterior back pain and she has no radicular pain. Gabapentin can cause drowsiness and confusion in the elderly and she was having falls at home. 7. Avoid medications that cause confusion/sedation in the elderly if at all possible Medications at Discharge Home Medications aspirin 81 mg chewable tablet (Aspirin Childrens) 81 mg PO DAILY heart health 11/27/22 lisinopril 20 mg tablet 20 mg PO BID blood pressure 11/27/22 calcium carbonate 200 mg calcium (500 mg) chewable tablet 200 mg PO TID Check with primary doctor 01/07/23 acetaminophen 500 mg tablet 1,000 mg PO Q8H PRN pain #1 TAB 01/19/23 gabapentin 100 mg capsule 100 mg PO BID #21 caps 01/19/23 methocarbamol 500 mg tablet 500 mg PO TID PRN Muscle Spasm #30 tabs 01/19/23 metoprolol succinate 100 mg tablet,extended release 24 hr 100 mg PO 2100 #30 tabs 01/19/23 ondansetron 4 mg disintegrating tablet 4 mg PO Q6H PRN Nausea #2,215 tabs 01/19/23 pantoprazole 40 mg tablet,delayed release 40 mg PO DAILY #30 tabs 01/19/23 sennosides 8.6 mg-docusate sodium 50 mg tablet (Stool Softener-Stimulant Laxative) 1 tab-cap PO BID Constipation #60 tabs 01/19/23 simethicone 80 mg chewable tablet 80 mg PO PCHS #120 tabs 01/19/23 tramadol 50 mg tablet 50 mg PO Q6H PRN PRN Pain #20 tabs 01/19/23 Hospital Course Operations - Procedures - (On 12/23/2022 at [facility] she underwent a right colectomy, terminal ileum resection and omental flap with surgical oncology. 6 of 27 nodes that were sampled were positive for neuroendocrine tumor.) Summary of Care Provided Minutes Spent on Discharge: 40 Hospital Course: MERLYN ERAZO, is a 82 YO F with a PMH of CVA on 11/27/22 (right frontal parietal and left temporal likely embolic strokes), HTN, dyslipidemia, uterine prolapse, history of viral encephalitis (2016), diverticulosis, anxiety/depression, osteopenia (last bone mineral density study was in April 2022), diastolic dysfunction stage I, moderate left atrial enlargement and diet-controlled diabetes mellitus.? Merlyn was admitted to [facility] for a stroke on 11/27/2022.? She was discharged on 11/29/22 and referred for OP therapy.? She returned to the ER at [facility] 2 additional times later in the month with c/o abd pain.? She had a CT scan of her abdomen and pelvis that revealed a focal exophytic appearing enhancing 1.7 x 1.6 cm mass adjacent to the distal small bowel.? There was also a similar-appearing nodule in the right lower quadrant suspicious for possible reactive or metastatic lymph node.? There were multiple small reactive lymph nodes in the retroperitoneum and in the mesentery.? Also visualized were reactive appearing lymph nodes in the mediastinum which had enlarged since previous study.? There was a 5.4 mm pulmonary nodule in the right lower lobe.? she was transferred to a tertiary center ([facility]) for surgery on the recommendation of general surgery at [facility].? On 12/23/2022 she underwent a right colectomy, terminal ileum resection and an omental flap with surgical oncology.? Final pathology was resulted as a neuroendocrine tumor with 6/27 positive nodes.? Postoperatively she had an ileus and was started on TPN.? She also experienced urine retention which is likely multifactorial secondary to uterine prolapse, postoperative pain and medications.? After the ileus resolved and NG was inserted to provide nutrition.? Prior to transfer to [facility] she had been started on a diet.? She was seen by PT/OT/ST postoperatively and acute rehab was recommended following discharge.? She was transferred to the acute inpt rehab unit at [facility] on 01/07/23 for 3 hours of therapy daily to restore function/independence at or near her level prior to the recent strokes and resection of an ileocecal neuroendocrine tumor.? Jennifer was very anxious at presentation to acute rehab with excessive pressured speech, flight of ideas, restlessness and poor concentration. This improved as she got settled in but, she has a hx of anxiety/depression and she was not on medication to treat this at presentation. She continued to be anxious and she chronically suffers from insomnia. BP and HR increase with increased anxiety. She was also confused and had poor short term memory. She was seen by ST as well as PT/OT. She was on multiple medications that cause sedation and confusion and these include Robaxin, tramadol, Melatonin (not appropriately adjusted dose for age)and and Neurontin TID. She had been having hot flushes but, following the surgery these decreased in number. 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 Following the stroke on 11/27/22 Jennifer was sent a 30 day event monitor since the strokes appeared to be embolic. She had no hx of AF. The monitor was sent back when she got ill with bowel obstruction. She should finish a 30 day event monitor and then have follow up with [facility]. She has not had any AF while in rehab. Jennifer's BP is labile and the BP and HR significantly increase when she is anxious. WE discussed starting Buspar to control anxiety and she is going to talk with Dr. Hercules about this if the BP is still elevated at home. I advised her to get a BP cuff and check her BP at home at different times of the day and she will keep a record to present to Dr. Hercules at her next visit. We have been decreasing and discontinuing medications that cause sedation/confusion in the elderly. At [place] she is taking only 1 Robaxin a day and that is at HS which helps her to sleep. She is taking no more than 1 tramadol 50 mg tablet daily. Gabapentin has been weaned down to 100 mg twice daily and in 1 week would decrease to nightly and the following week discontinue completely. I am not sure why she is on gabapentin. She has some right low back pain which may be related to the surgery/tumor and she has no radicular pain. She was also having some falls at home which could be related to gabapentin. She is rarely c/o low back pain at the time of DC. She is also no longer c/o hot flashes. Jennifer worked hard in therapy and did very well. Prior to DC she was ambulating with no AD. She was independent with all ADLs but should have supervision/set up for tub/shower transfer for at least 1 week. She was able to ascend/descend 20 steps in the stairwell with 2 handrails at supervision by the [employer]. She is able to do 10 sit to stands in 30 seconds using her bilateral upper extremities. She has ambulated 326 feet with no assistive device at mod I on various surfaces. I recommend additional ST post DC from rehab. She had [address] [facility] and wants to resume tx at [facility]. Jennifer will follow up with Dr. Enriquez (oncologic surgery), Dr. Hercules and Dr. Rojas following DC. She will also need to follow up with [facility] for results of the 30 day event monitor and I also recommend follow up with neurology for the stroke she had on 11/27/22. Physical Exam Const alert, oriented x3 and no apparent distress Constitutional Narrative: Still very talkative but, no flight of ideas today and she is able to stay on topic mostly when talking with me. She is anxious and realizes she is anxious General Appearance: cooperative and well kempt HEENT normocephalic, hearing grossly normal bilaterally and moist oral mucous membranes Eyes PERRL, EOMs intact bilaterally, conjunctivae normal and no scleral icterus Eyes Narrative: no visual loss General Eye: normal appearance of both eyes; Negative for proptosis Neck full ROM, supple, No no JVD, No nodes and No no carotid bruits General: trachea midline Lymph Lymphatic: no lymphadenopathy noted Chest Chest: symmetrical chest wall rise Resp normal respiratory effort, normal air movement, no use of accessory muscles and clear to auscultation bilaterally Effort and Inspection: able to speak in complete sentences; Negative for tachypneic or labored Cardio regular rhythm and no gallops Cardio Narrative: mildly tachycardia today and talking up a blue streak. Admits to being anxious about going home although she is very glad to be going home. GI soft to palpation and non-tender GI Narrative: no guarding with palpation. The abdomen is distended and tympanic but, it is soft and there are good BS's heard in all 4 quadrants. Back/Spine no CVA tenderness Extremity normal capillary refill and no pedal edema; Negative for no calf tenderness Extremity Narrative: No clubbing. Skin General Skin Exam: no breakdown Rashes: no rashes Wound Narrative: The incision is healing with no dehiscence. There is no geraldine-incisional erythema and no swelling around the incision which is suprapubic. Neuro Neuro Narrative: Much calmer now. Not jumping from 1 topic to the next and she is attentive to what is being said to her. She has a mild Left facial droop. No unilateral weakness or numbness. No visual loss. No extinction. No dysarthria. No ataxia. She is having some trouble with higher level executive functioning and memory. Speech: speech normal Psych cooperative Psych Narrative: Not depressed. Anxious at times and this makes the BP increase. Appearance: appropriate and well kempt Attitude: evasive and No agitated Activity / Motor Behavior: Negative for restless Speech: excessive Medical Records Data Medical Nutrition Assessment Dietitian: Malnutrition Criteria Met Start: 01/08/23 12:44 Freq: Status: Active Protocol: Document 01/08/23 12:44 LIANNA (Rec: 01/08/23 12:44 [facility] [id number]) Nutrition Malnutrition Evidence of Malnutrition Exists Yes Malnutrition (severe): Acute Illness/Injury Evidenced By Suboptimal Energy Intake ( Severe),Weight Loss (Severe) Clinical Problem Acute Disease or Injury Related Malnutrition Etiology related to recent surgery and inadequate energy intake Signs/Symptoms as evidenced by meeting <50-75 % of est nutritional needs and 9.3% unintentional wt loss x < 1 month Status Active Problem Recommendation Dietitian Recommendations/Changes Will change diet to Regular low fiber w/ 4 oz ensure plus high protein 3x/day w/ meals per pt preference (vs medpass) Will monitor for changes in pt nutritional status and adjust ONS as indicated. Weight / BMI Weight Weight: 138 lb 3.677 oz Body Mass Index (BMI) 24.5 ABG / Lab / Microbiology Data Result Diagrams: 01/14/23 05:10 01/19/23 05:42 D/C Instructions Discharge Diet: - (Low-fat, low salt. No concentrated sweets. ) Weight Bearing Status: Full weight bearing Call your doctor if you observe: Fever of 101 or Higher, Inability to urinate, Shortness of breath, Dizziness, Fainting spells, Swelling in the ankles, Chest pain, Increased palpitations (irregular heartbeat), Calf discomfort and Uncontrolled pain Pending Tests Upon Discharge: none Meaningful Use Info Meaningful Use Diagnoses (Choose all that apply): None applicable (She had a stroke on 11/27/22 BUT, she was in rehab for debility due to recent abd surgery with R colectomy.) Discharge Plan Admission Admit Date/Time: 01/07/23 18:32 Primary Reason for Your Visit: Debility due to abd surgery with resection of tumor in the terminal ileum. Attending Provider: Yanet Cabral Primary Care Provider: Isai Hercules Instructions Patient Instructions: VINNIE Additional Instructions / Restrictions: 1. Your BP and your HR have been mildly elevated the past 2 days and I suspect this is due to anxiety/worrying about going home. I also think this is the reason you do not sleep well at night. It can also cause abd cramping/nausea/lightheadedness. Sometimes when people age, felicity if they live alone, they worry a lot. They worry about their children and grandchildren, about someone breaking into the house, about what is going to happen to them in the future, about paying bills and having enough money, about their health and about others taking advantage of them etc. Talking to someone about this can help but, sometimes people need to take some medication. There is a drug called Buspar.........it is non-addictive and it only treats anxiety. You take it either 2 times a day or 3 times a day and it helps decrease anxiety. It is a much safer drug to use in someone your age with anxiety than other medications like Ativan or Valium. Sometimes people get anxious when they go to the doctor and their BP will go up......so the doctor increases the medication. When they get home and are relaxed the BP goes down and then they have lightheadedness and a low BP......the best way to treat this is to treat the anxiety, not increase the antihypertensive per se. 2. You have done very well in therapy and you are able to walk without a cane or a walker! That's great. We appreciate your hard work. Keep doing your exercises at home to keep those muscles toned. Daily exercise also helps to prevent memory loss. 3. The kind of tumor you had removed is called a neuroendocrine tumor. This kind of tumor can spread and it was also in your lymph nodes. You will need to follow up with an oncologist. I discussed your case with Dr. Rojas who is an oncologist here at the hospital. He would be happy to see you. He is associated with the [facility] in [place]. He would be able to follow you and if you need additional surgery or ablations he could refer you to [facility] in [place]. He is a very nice man and very caring. I think you will like him, I like him a lot. His office is in the big building behind [employer]. 4. Try and drink more water. Water keeps the stool soft so you don't get constipated and it helps things to move though your intestines. I would like you to drink at least 1500 cc's daily which is 50 ounces. 5. It was nice getting to know you and Nina and we are very happy with the progress you made. If you or Nina have any questions after you leave rehab please do not hesitate to call me. Office: [phone] CELL: [phone] Discharge Orders/Prescriptions Prescriptions: New gabapentin 100 mg Capsule 100 mg PO BID Qty: 21 0RF Rx Instructions: BID for 1 week then Q HS for 1 week and then DC methocarbamol 500 mg Tablet 500 mg PO TID PRN (Reason: Muscle Spasm) Qty: 30 0RF Rx Instructions: Take 1 at HS and may have a second during the day for back pain. pantoprazole 40 mg Tablet,Delayed Release (Dr/Ec) 40 mg PO DAILY Qty: 30 0RF simethicone 80 mg Tablet,Chewable 80 mg PO PCHS Qty: 120 0RF tramadol 50 mg Tablet 50 mg PO Q6H PRN PRN (Reason: Pain) Qty: 20 0RF Rx Instructions: Take every 6 H as needed for pain not relieved with Acetaminophen sennosides-docusate sodium [Stool Softener-Stimulant Laxat] 8.6-50 mg Tablet 1 tab-cap PO BID Qty: 60 0RF metoprolol succinate 100 mg Tablet Extended Release 24 Hr 100 mg PO 2100 Qty: 30 0RF Continued lisinopril 20 mg tablet 20 mg PO BID Label Comments: TAKE 1 TABLET BY MOUTH TWICE A DAY aspirin [Aspirin Childrens] 81 mg tablet,chewable 81 mg PO DAILY Label Comments: once a day calcium carbonate 200 mg calcium (500 mg) Tablet,Chewable 200 mg PO TID ondansetron 4 mg Tablet,Disintegrating 4 mg PO Q6H PRN (Reason: Nausea) Qty: 2215 0RF Changed acetaminophen 500 mg Tablet 1,000 mg PO Q8H PRN (Reason: pain) Qty: 1 0RF Discontinued furosemide 20 mg tablet 20 mg PO DAILY Label Comments: TAKE 1 TABLET BY MOUTH EVERY DAY rosuvastatin 20 mg Capsule, Sprinkle 20 mg PO QHS methocarbamol 500 mg Tablet 500 mg PO TID tramadol [Ultram] 50 mg Tablet 25 - 50 mg PO Q6H PRN PRN (Reason: Pain) Rx Instructions: 25mg pain 1-4 50mg pain 5-10 benzonatate [Tessalon Perles] 100 mg Capsule 100 mg PO TID PRN (Reason: Cough) simethicone 40 mg/0.6 mL Drops,Suspension 80 mg PO Q6H gabapentin 100 mg Capsule 200 mg PO TID metoprolol tartrate 25 mg Tablet 25 mg PO BID melatonin 5 mg Tablet 5 mg PO QHS guaifenesin 600 mg Tablet Extended Release 12hr 600 mg PO Q12H clopidogrel 75 mg tablet 75 mg PO DAILY omeprazole 40 mg capsule,delayed release(DR/EC) 40 mg PO DAILY naloxone 4 mg/actuation [place],Non-Aerosol 1 spray INTRANASAL Q3M Rx Instructions: spray 1 dose into ONE nostril; alternate nostrils w each dose until help arrives Referrals / Follow Up: Dr Enriquez [Other] - 01/21/23 11:15 am (Surgeon ) Isai Hercules MD [Primary Care Provider] - 01/25/23 9:40 am Angelica Rojas MD [Med Staff - Active Staff] - 01/27/23 9:30 am Disposition Disposition (needs filled in before D/C Order can be placed): Home, Self Care Charges/Coding Visit Charges Inpatient E&M: 43190 Disch Hosp >30min
[2023-01-20 14:52] VITALS: BMI 24.5
[2023-01-20 17:24] VITALS: BP 130/90; PULSE 111; RESP 18; TEMP 36.6; O2SAT 96
--- NOTE | 2023-01-20 17:27 | NURSING ---
discharged home with daughter. discharge instructions, medication and appointments reviewed with pt and family. denies questions or concerns
== END 2023-01-20 17:30 | disposition home or self-care (01) | DRG 949 ==
PROVIDERS: Admitting Provider Internal Medicine; PCP Family Medicine; Visit Provider Internal Medicine
DX: Z48.815 Encounter for surgical aftercare following surgery on the digestive system (principal); D62 Acute posthemorrhagic anemia; C7A.8 Other malignant neuroendocrine tumors; I27.20 Pulmonary hypertension, unspecified; E11.9 Type 2 diabetes mellitus without complications; D72.819 Decreased white blood cell count, unspecified; E78.00 Pure hypercholesterolemia, unspecified; I10 Essential (primary) hypertension; I69.392 Facial weakness following cerebral infarction; G47.00 Insomnia, unspecified; N81.4 Uterovaginal prolapse, unspecified; Z79.02 Long term (current) use of antithrombotics/antiplatelets; Z79.82 Long term (current) use of aspirin; Z79.899 Other long term (current) drug therapy; Z90.49 Acquired absence of other specified parts of digestive tract
CPT/HCPCS: 36415; 80048; 80053; 80061; 83036; 83735; 84100; 84260; 85025; 85027; 94668; 97110; 97112; 97116; 97129; 97130; 97162; 97165; 97530; 97535; 97802; 97803

== ENCOUNTER → 2023-02-14 | Outpatient (CLI) | payer MEDICARE, OTHER, SELFPAY ==
--- NOTE | 2023-02-14 15:30 | MRI_ITS ---
STUDY: MRI LUMBAR SPINE WITHOUT CONTRAST REASON FOR EXAM: Female, 82 years old. BACK PAIN/ METS NEUROENDOCRINE TUMOR -- WITHOUT CONTRAST TECHNIQUE: MRI examination lumbar spine fusion protocol including multiplanar multiecho noncontrast imaging. Contrast: No contrast administered. COMPARISON: No previous relevant examinations available for comparison. FINDINGS: Vertebral bodies and alignment. 1. Vertebral body height and alignment are maintained. Multilevel discogenic endplate changes are present. Early Modic type II changes at L4-5 and at L3-4 disc spaces. There is a Schmorl''s node involving the inferior endplate of L3. 2. No evidence of marrow edema or occult fracture. 3. Paraspinous soft tissue planes have normal appearance. Normal appearance of the muscular fascial planes of the erector spinae. 4. Normal appearance of the sacrum and sacroiliac joints. 5. Incidental note of a RIGHT renal cyst. No obstructive uropathy noted. Intervertebral disks levels. T12-L1: Normal endplates. Normal disc height, hydration and morphology. Normal bilateral facet joints. Normal central canal and bilateral lateral recesses. Normal bilateral intervertebral neural foramina. L1-2: Disc desiccation, minimal disc bulge, no disc herniation canal or foraminal narrowing. L2-3: Disc desiccation, broad-based posterior disc bulge, minimal osteophyte formation without canal or foraminal narrowing. Mild facet hypertrophic changes. L3-4: Disc desiccation, broad-based disc bulge, no canal stenosis. There is mild narrowing of the RIGHT lateral recess with a RIGHT focal foraminal protrusion of the bulge however no evidence of nerve root impingement. Facet and ligamentum flavum hypertrophic changes are present. L4-5: Disc desiccation, broad-based chronic appearing disc protrusion with deformity the anterior epidural space, no central canal stenosis however compression of lateral recesses greater on LEFT than RIGHT. Facet and ligamentum flavum hypertrophic changes are present. There is early impingement of the LEFT L5 nerve root within the LEFT lateral recess. Neural foramina are widely patent. L5-S1: No evidence of disc herniation canal or foraminal narrowing. Facet and ligament flavum hypertrophic changes are present. Spinal cord: Normal appearance of the spinal cord and conus. Conus is located at L1. Cauda equina has normal appearance. No evidence of cord compression or edema. No intramedullary signal abnormality noted. MRI/Spine Lumbar (Routine) IMPRESSION: 1. Multilevel lumbar spondylosis, broad-based disc bulge present at multiple levels. There is a small focal RIGHT foraminal protrusion at L3-4, broad-based chronic appearing protrusion osteophyte at L4-5. 2. No evidence canal stenosis. 3. There is narrowing of the LEFT lateral recess at L4-5 due to disc and facet changes with early impingement of the LEFT L5 nerve root. 4. No other evidence of nerve root impingement. 5. Normal appearance of the visualized spinal cord and conus. 6. Incidental note of RIGHT renal cyst. Electronically Signed: Leonides Acevedo MD at 23:26 EDT ,
--- NOTE | 2023-02-14 15:30 | MRI_ITS ---
STUDY: MRI THORACIC SPINE WITHOUT CONTRAST REASON FOR EXAM: Female, 82 years old. BACK PAIN/METS NEUROENDOCRINE TUMOR -- WITHOUT CONTRAST TECHNIQUE: MRI examination of the thoracic spine obtained with a standard protocol including multiplanar multiecho noncontrast imaging. Contrast: No contrast administered. COMPARISON: MRI examination of the lumbar spine on same date. No previous thoracic spine imaging. FINDINGS: VERTEBRAL BODIES: 1. Vertebral body height is maintained. Subtle area of T1 and T2 hyperintensity at the C7 level, of indeterminate etiology, however unlikely to represent a destructive marrow replacement process. 2. There is no substantial scoliosis. INTERVERTEBRAL DISC SPACES: 1. T1-2, T2-3, T3-4, T4-5, T5-6, T6-7, T7-8, T8-9, T9-10, T10-11, T11-12: Disc spaces are maintained, L2 level disc space narrowing is noted. Scattered Schmorl''s nodes are present, particularly involving the inferior endplate of T7 and T12. No disc herniation or canal stenosis. No cord compression. SPINAL CORD: 1. Spinal cord is normal configuration, no evidence cord compression. There is however a subtle syrinx suspected extending from approximately T5-T8. No mass is noted. Normal conus medullaris that terminates at the T12. PARASPINOUS SOFT TISSUES: The soft tissue structures are unremarkable. MRI/Spine Thoracic (Routine) IMPRESSION: 1. Multilevel spondylosis with disc desiccation, no disc herniation canal stenosis or cord compression. 2. No destructive marrow replacement processes. There is a T1 and T2 hyperintensity at C7 likely representing a hemangioma however incompletely visualized on current exam. 3. No evidence cord compression. There is however a subtle syrinx suspected from T5 to T8. No associated mass or mass effect. Electronically Signed: Leonides Acevedo MD at 23:46 EDT ,
== END | disposition home or self-care (01) ==
LOC: MRI 15:25
PROVIDERS: PCP Family Medicine; Referring Provider Internal Medicine Hematology & Oncology; Visit Provider Internal Medicine Hematology & Oncology
DX: M54.9 Dorsalgia, unspecified (principal); D3A.8 Other benign neuroendocrine tumors
CPT/HCPCS: 72146; 72148

== ENCOUNTER → 2023-03-11 | Outpatient (CLI) | payer MEDICARE, OTHER, SELFPAY ==
[2023-03-11 17:29] LABS: Bacteria 0 SEEN /hpf (None Seen); Mucous, Urine 0 SEEN /hpf (<or=2+); White Blood Cells 0 SEEN /hpf (0-5)
[2023-03-11 17:49] LABS: Color, Urine Yellow (Yellow); Glucose, Dipstick Normal (Normal); Ketone-Dipstick Negative (Negative); Leukocyte Esterase-Dipstick 100 /ul (Negative); Nitrite-Dipstick Negative (Negative); Occult Blood-Urine 25 /ul (Negative); Protein-Dipstick Negative (Negative); Specific Gravity, Urine 1.015 (1.002-1.030); Urine Bilirubin Dipstick Negative (Negative); Urine Clarity Clear (Clear); Urine Urobilinogen Normal (Normal)
[2023-03-11 17:58] LABS: Absolute Lymphocyte Count 0.98 X10^3/uL (0.83-4.51); Absolute Neutrophil Count 2.8 X10^3/uL (2.0-7.7); Basophil# 0.05 X10^3/uL; Basophil% 1.1 % (0-1); Eosinophil# 0.07 X10^3/uL; Eosinophils% 1.6 % (0-5); Hematocrit 40.4 % (37-47); Hemoglobin 13.2 g/dL (12.0-15.0); Lymphocyte # 0.98 X10^3/ul (0.83-4.51); Lymphocyte % 22.4 % (19-41); Mean Corp Hgb Conc 32.7 g/dL (32-36); Mean Corpuscular Hgb 31.3 pg (27.0-32.0); Mean Corpuscular Volume 95.7 fL (81-99); Mean Platelet Vol. 9.3 fl (6.2-12.0); Monocyte% 11.4 % (0-10); NRBC Flagged by Analyzer 0 % (0-5); Neutrophil # 2.77 X10^3/uL (2.7-7.7); Neutrophil % 63.3 % (47-70); Platelet Count 141 K/mm3 (150-450); RBC Distribution Width CV 13.2 % (11.6-14.6); RBC Distribution Width SD 46.2 fl (35.1-43.9); Red Blood Count 4.22 M/mm3 (4.2-5.4); White Blood Count 4.4 K/mm3 (4.4-11.0)
[2023-03-11 17:59] LABS: Red Blood Cells-Urine 0-5 SEEN /hpf (0-5); Squamous Epithelial Cells - UA 0-5 SEEN /hpf (5-10)
[2023-03-11 18:13] LABS: Hemoglobin A1c 5.3 % (3.8-5.6)
[2023-03-11 18:42] LABS: AST(SGOT) 20 U/L (15-37); Alanine Aminotransfer ALT/SGPT 28 U/L (13-56); Albumin, Serum 3.6 g/dL (3.2-5.0); Alkaline Phosphatase 92 U/L (45-117); Anion Gap 6 (5-15); BUN 16 mg/dL (7-18); BUN/Creat Ratio 27.4 RATIO (10-20); Chloride 103 mmol/L (98-107); Cholesterol 154 mg/dL (200); Creatinine, Serum 0.58 mg/dL (0.55-1.02); EST Glomerular Filtration Rate 105 mL/min (>60); Est Glom Filt Rate - Afr Amer 127 mL/min (>60); Globulin 3.5 g/dL (2.2-4.2); Glucose 90 mg/dL (74-106); High Density Lipoprotein 37 mg/dL; Magnesium 2.4 mg/dL (1.6-2.6); Protein, Total 7.1 g/dL (6.4-8.2); Sodium Level 140 mmol/L (136-145); Thyroid Stim Hormone (TSH) 1.66 uIU/mL (0.358-3.74); Triglycerides 204 mg/dL; Very Low Density Lipoprotein 41 mg/dL (5-40)
== END | disposition home or self-care (01) ==
LOC: MFPLAB 16:32
PROVIDERS: PCP Family Medicine; Visit Provider Family Medicine
DX: I10 Essential (primary) hypertension (principal); R73.02 Impaired glucose tolerance (oral); R19.7 Diarrhea, unspecified
CPT/HCPCS: 36415; 80053; 80061; 81001; 83036; 83735; 84443; 85025

== ENCOUNTER 2023-03-15 17:00 | Outpatient (RCR) | payer MEDICARE, OTHER, SELFPAY ==
--- NOTE | 2023-02-22 10:51 | HP.SP.EV_ITS ---
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 MAX written and verbal cues required for patient to complete word problems relating to number processing. Immediate recall - able to repeat back 3 words immediately after hearing them but unable to retain information long enough to mentally manipulate/reorganize it, requiring written and MAX verbal cues for completion. Able to count dollars and coins w/ 60% (09/14) accuracy. Difficulty keeping track of coins when counting aloud, frequently forgetting which coins she already counted, counting double, etc. Extended time to process and respond/execute is appreciated across all cognitive tasks. Immediate recall of paragraph length (3 sentences) information - answered yes/no questions w/ 50% accuracy. Completed executive function/deductive reasoning tasks w/ 25% accuracy, requiring mod-max cues to achieve 100% accuracy. Hyper verbosity continues to be a limiting factor in completing therapeutic tasks in a timely manner w/ frequent redirection required. 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 Other Relevant Medical History/Diagnoses/Surgery: MERLYN ERAZO is an 82 year old female who presents to [facility] Speech Therapy for cognitive evaluation. She was accompanied by her daughter, Nina, who helped serve as historian. 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 At this time, Nina, is managing finances and medications. Merlyn would like to get back to practicing these ADLs to be more independent so Nina does not have to stay with her. 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 Medications related to this diagnosis: gabapentin for back pain BID for 100 mg, tramadol PRN Smoking Status: Never smoker - Diagnosis Diagnosis: Moderate Cognitive Deficit - Pain Is pain an issue with your current prescribed condition?: Yes - Personal Preferred language: Occitan History - History Medications related to this diagnosis: gabapentin for back pain BID for 100 mg, tramadol PRN Smoking Status: Never smoker Hx Smoking: No Hx Tobacco Use: No - Pain Is pain an issue with your current prescribed condition?: Yes Patient Allergies - Allergies Allergies amlodipine Adverse Reaction (Intermediate, Verified 01/31/23 13:13) Other Lower extremity edema Objective Cog/Ling/Com - Test Administered Eocijbgcd-Fakzdyztqs-Twkdzjzftgkka Assessment Administered: Yes Djntkncdt-Gicimzpqki-Lblowbgktthly Assessment: Cognitive ? Linguistic skills wer e evaluated using patient/family interview, skilled observation and informal evaluation through tasks completed by the patient. - Orientation Orientation: Person, Date, Medical Diagnosis - Answer Yes/No Questions Simple: WFL Complex: WFL - Follows Commands 1 Step: WFL Complex: Moderate - Repetition Sentences: Moderate, Severe - Conversational Tasks Conversational Tasks: Mild Comments: Merlyn presenting with increased verbosity with at times tangential language. Typically upon furthering questioning, the tangents often have a close relation to the main story, however Pt providing little detail about the tangent, therefore at the time a listener may feel it was off-topic. She did exhibit some word finding difficulties as well as semantic and phonemic paraphasias throughout a conversation. - Recall Repeating Digits: Able to repeat up to 4 digits with no errors. As the length and complexity increases, Pt deleting 1-2 numbers or having the appropriate numbers just in a different order. Repeating Sentences: Pt repeating sentences such as use a towel to wipe glasses or A school is a large building with many rooms with 100% acc however, as the complexity increased for sentences like the shape of a leaf tells what kind of tree it is from, Pt only recalling shape of a leaf. Percent recall of paragraph information (open ended questions): During a story retell task, Merlyn recalled 3/17 details = 18% Comments: Family reporting that Merlyn often benefits from extended processing time to encode presented information to improve her short-term memory. - Numerical Skills Counting Money: Pt reporting this is difficult for her and she would like to work on it. Balancing Checkbook [place]: Pt reporting this is difficult for her and she would like to work on it. - Cognitive Linguistic Supervision/Saftey Awareness of deficits: Mild, Moderate Being left home alone: Mild Managing medications: Moderate Managing finances: Moderate Plan - Plan Plan: Will recommend Pt for weekly outpatient speech therapy to address mod- severe cognitive impairment characterized by deficits in immediate and short- term memory, word retrieval, executive functioning, attention, problem solving/reasoning, and safety awareness. Pt would benefit from training in compensatory strategies for recall and word retrieval, as well as cognitive training to improve cognitive functioning. Without skilled ST services, the Pt is at risk for decreased independence completing daily living tasks, driving, and living independently. - Recommendations Treatment Warranted: Yes Treatment Warranted: Cognition - Progress Prognosis: Good - Frequency Frequency: 1x/Week Additional (Frequency): 60 min. sessions. Duration: 2 Months - Goals that are Established Determination:: Goals will be added/modified as deemed necessary and appropriate. Therapy will be discontinued when results of re-evaluation indicate therapy is no longer needed or lack of progress has been documented. - Goal #1-5 Goal #1: Merlyn will independently complete complex problem solving, reasoning, and executive function tasks including but not limited to functional ADL (i.e. managing finances, safety awareness, paying bills, medication management, meal planning, using cellphone) with 80% acc during 2/3 sessions. Goal #2: Merlyn will modify environment at home via implementing memory compensatory strategies within 4 weeks' time of their initial evaluation. Goal #3: Merlyn will complete basic immediate, short-term, and working memory tasks with 80% acc independently across 3 measured opportunities. Goal #4: Merlyn will demonstrate use of word finding strategies to complete complex convergent and divergent naming tasks with 85% acc independently across 3 measured opportunities to improve word retrieval. Education - Patient has Indicated that the Following Identified Educational Needs: None The Patient has indicated that they have no educational or learning abilities that may effect their care.: Yes - Patient Instruction Patient Education: Diagnosis, Treatment Plan Person Taught: Patient, Family Teaching Method: Discussion, Demonstration Response to teaching: Return demonstration, Verbalize understanding
--- NOTE | 2023-03-25 11:20 | HP.SP.DC_ITS ---
ST Discharge Summary Discharged: Discharge: EDWIN ERAZO is an 82 year old female who presented to [facility] on 02/22/23 for a cognitive evaluation. She has attended 2 additional treatment sessions. She is being d/c at this time d/t a current hospital admission for a fall. Will re-evaluate following d/c from the hospital and script from physician.
== END 2023-03-15 19:00 | disposition home or self-care (01) ==
LOC: SP 17:00
PROVIDERS: PCP Family Medicine; Referring Provider Internal Medicine; Visit Provider Family Medicine
DX: I69.318 Other symptoms and signs involving cognitive functions following cerebral infarction (principal)
CPT/HCPCS: 92523; 97129; 97130

== ENCOUNTER 2023-03-20 23:58 | Observation (INO) | payer MEDICARE, OTHER, SELFPAY ==
[2023-03-20 23:58] VITALS: BP 142/85; PULSE 95; RESP 16; TEMP 36.6; O2SAT 98; BMI 26.5
[2023-03-21] VITALS (7 sets, daily range): BP systolic 140–179; BP diastolic 63–84; PULSE 87–106; RESP 16–18; TEMP 36.3–37.2; O2SAT 94–96; BMI 24.6
--- NOTE | 2023-03-21 00:23 | CT_ITS ---
INDICATION: injury EXAMINATION: CT CERVICAL SPINE - CT Spine Cervical W/O Contrast Injection TECHNIQUE: Helically acquired images were obtained of the cervical spine. 2D reformatted images were reviewed. A radiation dose optimization technique was used for this scan. IV Contrast dosage and agent: None. COMPARISON: CT head on same day . CTA head and neck November 27, 2022 FINDINGS: VERTEBRAE: No fracture or compression deformity. Osseous fusion of the basion skull and C1. Osseous fusion posterior elements left C2 C3 C4 and right C2 C3. Levels numbered accordingly. No discrete lytic or blastic abnormality. Normal alignment. DISCS and SPINAL CANAL: Minimal C4 C5 posterior disc osteophyte complex with minimal spinal canal and moderate left neural foraminal stenosis. . NECK SOFT TISSUES: No prevertebral soft tissue swelling. There is no cervical adenopathy. LUNG APICES: Clear. CT/Spine Cervical without Contras IMPRESSION: No evidence of acute cervical spinal fracture or spondylolisthesis. Mild spondylosis. Superior cervical fusion anomalies as above. Electronically Signed: Miguel Brown MD at 2:21 EDT ,
--- NOTE | 2023-03-21 00:23 | RAD_ITS ---
INDICATION: pain EXAMINATION/TECHNIQUE: X-RAY - XR Hip Unilateral with Pelvis when performed; 2-3 Views: AP pelvis with AP and frog-leg left hip COMPARISON: CT December 17, 2022 FINDINGS: PELVIC BONES: Left inferior pubic ramus contour abnormality with vertical lucency appreciated December 17, 2022 with smooth margins. Additional subtle cortical irregularity along the superior left pubis. Normal pubic symphysis, sacroiliac joint, bilateral hip alignment. Mild bilateral hip joint space narrowing and osteophyte formation. SOFT TISSUES: No soft tissue swelling or gas. RAD/HIP, UNI W/ Pelvis 2-3 Views IMPRESSION: Age-indeterminate left inferior pubic ramus deformity and possibly superior left pubic deformity, appearing subacute or chronic though not appreciated and December 17, 2022. Correlate for history of interval injury or localized tenderness. CT could further evaluate as clinically indicated. Electronically Signed: Miguel Brown MD at 2:26 EDT ,
--- NOTE | 2023-03-21 00:23 | CT_ITS ---
INDICATION: head injury EXAMINATION: CT BRAIN - CT Head or Brain W/O Contrast Injection TECHNIQUE: Multiple axial images were obtained of the head without intravenous contrast. A radiation dose optimization technique was used for this scan. IV Contrast dosage and agent: None. COMPARISON: November 27, 2022 FINDINGS: BRAIN PARENCHYMA: No intra- or extra-axial hemorrhage. No evidence of acute infarct. No intracranial mass or mass effect. Moderate periventricular and subcortical white matter hypodense chronic small vessel white matter ischemic change. There is preservation of the pineda/white matter interface. Posterior fossa structures are unremarkable. Carotid and vertebral atherosclerosis. CSF SPACES: Cerebral volume appropriate for age. No hydrocephalus. Basal cisterns are patent. CALVARIUM, SKULL BASE, PARANASAL SINUSES AND MASTOID AIR CELLS: No acute osseous finding. Mild scattered paransal sinus mucoperisteal thickening. Mastoid air cells are clear. ORBITS: Both globes, extraocular muscles, optic nerves and retrobulbar fat appear unremarkable. ASPECTS Score for Acute Strokes: 10 CT/Brain/Head without Contrast IMPRESSION: No CT evidence of acute intracranial hemorrhage or injury. Senescent changes and atherosclerosis without significant change from November 27, 2022 Electronically Signed: Miguel Brown MD at 2:14 EDT ,
--- NOTE | 2023-03-21 00:23 | CT_ITS ---
INDICATION: rib fracture EXAMINATION: CT CHEST WITHOUT CONTRAST - CT Chest W/O Contrast Injection TECHNIQUE: Helically acquired images were obtained of the chest. A radiation dose optimization technique was used for this scan. IV Contrast dosage and agent: None. COMPARISON: December 17, 2022. FINDINGS: LUNGS, PLEURA AND LARGE AIRWAYS: Large left posterior upper lobe calcified granuloma. 4 mm medial left lower lobe noncalcified nodule, axial image 91 and 5 mm nodule lateral left lung base axial image 88. 2 mm superior segment left upper lobe nodule axial image 34. 3 mm granuloma superior right middle lobe axial image 63. No pleural effusion or thickening. No pneumothorax. THYROID: No thyroid lesions. HEART AND PERICARDIUM: No retrosternal hematoma. Heart size is normal. Trace pericardial effusion. Mild coronary atherosclerosis. VESSELS: Aortic atherosclerosis without ectasia or intramural hematoma.. MEDIASTINUM AND MIROSLAVA: Multiple mediastinal lymph nodes up to 1.4 cm in short axis pretracheal. Hilar evaluation is limited without intravenous contrast with suggestion of subcentimeter nodules.. Esophagus is unremarkable. No hiatal hernia. UPPER ABDOMEN: Splenic calcified sequela of prior granulomatous disease. Cholecystectomy.. BONES: No suspicious lytic or blastic abnormality. Left proximal humeral internal fixation. CT/Chest without Contrast IMPRESSION: No visible fracture or evidence of acute thoracic injury. Multiple small noncalcified nodules with large left upper lobe calcified nodule compatible with sequela of prior granulomatous disease. 2 mm right middle lobe nodule is new from December 17, 2022 and medial left lower lobe 4 mm nodule is slightly increased in size from December 17, 2022. One-year follow-up CT is recommended to ensure stability Trace pericardial effusion new from December 17, 2022. Electronically Signed: Miguel Brown MD at 2:54 EDT ,
[2023-03-21] MEDS: fentaNYL 100 MCG/2 ML Ampul 50 MCG IV (00:34)
[2023-03-21] MEDS: 0.9% Normal Saline 1,000 ML 999 ML IV (00:35)
[2023-03-21] MEDS: Ondansetron 4 MG/2 ML Vial IV (00:35)
--- NOTE | 2023-03-21 00:54 | EDS_ITS ---
HPI History of Present Illness Chief Complaint: Fall Informant: patient and EMS Narrative Narrative: Patient is a 82-year-old female with past medical history of colon polyps status post colon resection. She reports that she was out in her garden today working on her tomato plants when she lost her balance and fell landing on her left side. She states she struck her head but did not have any loss of consciousness nor does she take a blood thinner. She states that secondary to pain she was unable to get back up and was on the ground for approximately 6 hours before she was found by family. Based on the pain and trauma EMS was called and patient was brought in for evaluation. Upon arrival patient is awake and alert and can recount the trauma and states it was purely mechanical without palpitations or loss of consciousness. She does admit to left-sided rib and hip pain and with concern for possible fracture presents for evaluation [facility] Medical History Anxiety and depression Asthma Grade I diastolic dysfunction History of CVA (cerebrovascular accident) History of viral encephalitis History of viral encephalitis HTN (hypertension) Insomnia Left atrial enlargement Osteopenia Pulmonary hypertension Uterine prolapse Home Medications aspirin 81 mg chewable tablet (Aspirin Childrens) 81 mg PO DAILY heart health 11/27/22 [History Last Taken 11/27/22 10:00] lisinopril 20 mg tablet 20 mg PO BID blood pressure 11/27/22 [History Last Taken 11/27/22 10:00] calcium carbonate 200 mg calcium (500 mg) chewable tablet 200 mg PO TID Check with primary doctor 01/07/23 [History Last Taken Unknown] acetaminophen 500 mg tablet 1,000 mg PO Q8H PRN pain #1 TAB 01/19/23 [Rx Last Taken Unknown] gabapentin 100 mg capsule 100 mg PO BID #21 caps 01/19/23 [Rx Last Taken Unknown] methocarbamol 500 mg tablet 500 mg PO TID PRN Muscle Spasm #30 tabs 01/19/23 [Rx Last Taken Unknown] metoprolol succinate 100 mg tablet,extended release 24 hr 100 mg PO 2100 #30 tabs 01/19/23 [Rx Last Taken Unknown] pantoprazole 40 mg tablet,delayed release 40 mg PO DAILY #30 tabs 01/19/23 [Rx Last Taken Unknown] sennosides 8.6 mg-docusate sodium 50 mg tablet (Stool Softener-Stimulant Laxative) 1 tab-cap PO BID Constipation #60 tabs 01/19/23 [Rx Last Taken Unknown] tramadol 50 mg tablet 50 mg PO Q6H PRN PRN Pain #20 tabs 01/19/23 [Rx Last Taken Unknown] buspirone 5 mg tablet 5 mg PO BID #60 tabs 01/20/23 [Rx Last Taken Unknown] lorazepam 0.5 mg tablet (Ativan) 0.5 mg PO X1 #1 TAB 01/31/23 [Rx Last Taken Unknown] simethicone 80 mg chewable tablet 80 mg PO .with meals 01/31/23 [History Last Taken Unknown] Allergy/AdvReac Type Severity Reaction Status Date / Time amlodipine AdvReac Intermediate Other Verified 03/21/23 00:02 Family History Mother Diabetes Hypertension Heart disease CVA (cerebral vascular accident) Father Prostate cancer Son Non-Hodgkin lymphoma, Onset Age: 55 Surgical History History of abdominal surgery History of cholecystectomy History of shoulder surgery Hx of cataract extraction Social History household members: none Smoking Status: Never smoker alcohol intake: former details: She drinks 1-2 glasses of wine 3-4 times a month. substance use type: does not use ROS ROS ED Constitutional Constitutional ED: Denies chills or fever(s) Eyes Eyes: Denies blurry vision or change in vision ENT ENT ED: Denies sore throat Cardiovascular Cardiovascular: Denies chest pain, palpitations or racing heartbeat Respiratory/Chest Respiratory/Chest: Denies cough or dyspnea Gastrointestinal Gastrointestinal: Denies abdominal pain, diarrhea, nausea or vomiting Genitourinary Genitourinary ED: Denies dysuria Musculoskeletal Musculoskeletal: Reports other Details: Positive left hip and rib pain ; Denies back pain, myalgias or neck pain Integumentary Denies Abrasions or rash Neurologic Neurologic: Denies headache(s) or paresthesias Hematologic/Lymphatic Hematologic/Lymphatic: Denies easy bleeding or easy bruising EXAM Physical Exam Const Vital Signs: 03/20/23 23:58 03/21/23 00:38 03/21/23 01:58 Temperature 97.8 F Temperature Source Temporal Pulse Rate 95 87 Respiratory Rate 16 18 Respiratory Effort Normal Respiratory Depth Normal Respiratory Pattern Normal Blood Pressure 142/85 H 171/83 H Blood Pressure Mean 104 112 Pulse Ox 98 95 Oxygen Delivery Method Room Air Room Air Room Air 03/21/23 03:22 03/21/23 03:22 Temperature 97.3 F L Temperature Source Temporal Pulse Rate 97 97 Respiratory Rate 16 16 Respiratory Effort Respiratory Depth Respiratory Pattern Blood Pressure 179/84 H 179/84 H Blood Pressure Mean 115 115 Pulse Ox 96 96 Oxygen Delivery Method Room Air Room Air Positive well nourished and well developed General Appearance ED: well developed HEENT HEENT Narrative: Normocephalic atraumatic No signs of depressed or basilar skull fracture Eyes PERRL and EOMs intact bilaterally Neck supple Neck Narrative: No bony deformity or step-off of the cervical spine no midline pain with palpation Chest Wall Chest Narrative: There is reproducible left anterior/lateral chest wall pain rib regions 8-12 without bony deformity or crepitance noted Resp normal respiratory effort and clear to auscultation bilaterally Cardio regular rate and regular rhythm GI normal to inspection, nondistended, normoactive bowel sounds, non-tender, non- distended and no masses GI Narrative: No voluntary guarding or rigidity no pulsatile mass or fluid wave or overlying abrasions or ecchymosis Auscultation: normoactive bowel sounds Palpation: soft Back/Spine Back/Spine Narrative: No bony deformity or step-off of the thoracic or lumbar spine no midline pain on palpation Extremity Extremity Narrative: Pelvis is stable and there is no shortening of the left lower extremity compared to the right. There is pain on palpation along the left inguinal region concerning for pubic rami fracture. Active and passive range of motion is decreased secondary to pain Neuro oriented x3, CN's II-XII intact bilaterally and no sensory deficits noted Sensorium / Orientation: alert Psych mental status grossly normal Skin no rashes or lesions noted MDM MDM MDM Narrative Medical decision making narrative: Patient presented to the ER awake and alert and reported mechanical fall and therefore I felt no need for cardiac or syncope work-up. As she reported she was on the ground for 6 hours there was concern for acute rhabdomyolysis so CPK level was added. Based on her advanced age and the fall there was concern for underlying head or neck trauma so CTs of the head and cervical spine were obtained. Based on her left-sided rib pain there was concern for rib fracture versus pneumothorax or flail chest so CT was added as well. With pain in the pubic rami there is concern for pubic rami fracture and x-ray was ordered to confirm diagnosis. Blood work revealed no clinically significant findings and imaging studies showed a acute versus subacute left pubic rami fracture and with her report of fall and pain I do feel this is acute in nature. We attempted to ambulate the patient with a walker and she was able to stand but she cannot walk secondary to the fracture and pain. As she lives at home alone and cannot ambulate is not safe for her return home and therefore medicine was contacted and they do agree to accept the patient at this time to discuss need for rehab placement. Both patient and family are agreeable to this plan of care History & Record Review Discussion w/independent historian: EMS personnel, Patient and Family Lab Data Attestation: I reviewed the patient's lab results. Labs: Laboratory Results - last 24 hr 03/21/23 03/21/23 00:10 00:10 WBC 10.3 RBC 4.14 L Hgb 13.0 Hct 38.1 MCV 92.0 MCH 31.4 MCHC 34.1 RDW Std Deviation 43.6 RDW Coeff of Aurelio 12.9 Plt Count 155 MPV 9.5 Immature Gran % (Auto) 1.000 H Neut % (Auto) 86.5 H Lymph % (Auto) 6.0 L [place] % (Auto) 5.4 Eos % (Auto) 0.2 Baso % (Auto) 0.9 Absolute Neuts (auto) 8.9 H Absolute Lymphs (auto) 0.62 L Nucleated RBC % 0 Sodium 141 Potassium 3.3 L Chloride 107 Carbon Dioxide 28.0 Anion Gap 6 BUN 14 Creatinine 0.58 Estim Creat Clear Calc 36.50 Est GFR (MDRD) Af Amer 129 Est GFR (MDRD) Non-Af 107 BUN/Creatinine Ratio 24.3 H Glucose 139 H Calcium 9.0 Total Creatine Kinase 78 Radiography Diagnostic Testing: Clinical Impression(s) from Imaging Studies Brain CT 03/21/23 00:23 IMPRESSION: No CT evidence of acute intracranial hemorrhage or injury. Senescent changes and atherosclerosis without significant change from November 27, 2022 Electronically Signed: Miguel Brown MD at 2:14 EDT , Cervical Spine CT 03/21/23 00:23 IMPRESSION: No evidence of acute cervical spinal fracture or spondylolisthesis. Mild spondylosis. Superior cervical fusion anomalies as above. Electronically Signed: Miguel Brown MD at 2:21 EDT , Chest CT 03/21/23 00:23 IMPRESSION: No visible fracture or evidence of acute thoracic injury. Multiple small noncalcified nodules with large left upper lobe calcified nodule compatible with sequela of prior granulomatous disease. 2 mm right middle lobe nodule is new from December 17, 2022 and medial left lower lobe 4 mm nodule is slightly increased in size from December 17, 2022. One-year follow-up CT is recommended to ensure stability Trace pericardial effusion new from December 17, 2022. Electronically Signed: Miguel Brown MD at 2:54 EDT , Hip/Pelvis X-Ray 03/21/23 00:23 IMPRESSION: Age-indeterminate left inferior pubic ramus deformity and possibly superior left pubic deformity, appearing subacute or chronic though not appreciated and December 17, 2022. Correlate for history of interval injury or localized tenderness. CT could further evaluate as clinically indicated. Electronically Signed: Miguel Brown MD at 2:26 EDT , Left hip with 1 view pelvis x-rays interpreted by the emergency medicine physician reveals an acute inferior pubic rami fracture. Discharge Plan Dx/Rx/DC Orders Clinical Impression: Closed fracture of pubic ramus, Inability to walk, Hypertension Disposition Disposition: Acute Care Hospital [facility]
[2023-03-21 00:55] LABS: Absolute Lymphocyte Count 0.62 X10^3/uL (0.83-4.51); Absolute Neutrophil Count 8.9 X10^3/uL (2.0-7.7); Basophil# 0.09 X10^3/uL; Basophil% 0.9 % (0-1); Eosinophil# 0.02 X10^3/uL; Eosinophils% 0.2 % (0-5); Hematocrit 38.1 % (37-47); Lymphocyte # 0.62 X10^3/ul (0.83-4.51); Mean Corp Hgb Conc 34.1 g/dL (32-36); Mean Corpuscular Hgb 31.4 pg (27.0-32.0); Mean Platelet Vol. 9.5 fl (6.2-12.0); Monocyte# 0.55 X10^3/uL; Monocyte% 5.4 % (0-10); NRBC Flagged by Analyzer 0 % (0-5); Neutrophil % 86.5 % (47-70); Platelet Count 155 K/mm3 (150-450); RBC Distribution Width CV 12.9 % (11.6-14.6); RBC Distribution Width SD 43.6 fl (35.1-43.9); Red Blood Count 4.14 M/mm3 (4.2-5.4); White Blood Count 10.3 K/mm3 (4.4-11.0)
[2023-03-21 01:15] LABS: Anion Gap 6 (5-15); BUN 14 mg/dL (7-18); BUN/Creat Ratio 24.3 RATIO (10-20); CPK Total, Creatine Kinase 78 U/L (26-192); Chloride 107 mmol/L (98-107); Creatinine, Serum 0.58 mg/dL (0.55-1.02); EST Glomerular Filtration Rate 107 mL/min (>60); Est Glom Filt Rate - Afr Amer 129 mL/min (>60); Glucose 139 mg/dL (74-106); Potassium 3.3 mmol/L (3.5-5.1); Sodium Level 141 mmol/L (136-145)
--- NOTE | 2023-03-21 02:45 | ED.RN ---
Attempted to ambulate patient, patient was unable to roll in bed. Pt was able to get up with 2 assist, and stand with a walker but was unable to take steps without significant pain. Assisted patient back into bed, cleaned up, bed linens changed and placed in position of comfort. Dr Chicas made aware.
--- NOTE | 2023-03-21 03:33 | PCM.HP.STD ---
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 Reportedly patient was doing some gardening work pulling some roldan and using a shovel. As she pulled some roldan she lost her balance and she fell onto her left side. She reports excruciating pain at the left side for which reason she could not easily get up. At the emergency department attempt was made for patient to get up and go home. However patient was too weak although she could stand she could not walk. Imaging done at the emergency department showed a possible fracture/deformity of the left inferior and superior pubis femur fracture. 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 Part of small intestines and her colon was removed alongside the tumor. After that patient was admitted to our rehab unit for rehabilitation. At this time family is looking to go to the same routes of patient being admitted to [facility] rehabilitation for rehab. Her fall before this presentation was about 6 hours before presentation. However 3 days before presentation patient had another fall. [facility] Medical History Anxiety and depression Asthma Grade I diastolic dysfunction History of CVA (cerebrovascular accident) History of viral encephalitis History of viral encephalitis HTN (hypertension) Insomnia Left atrial enlargement Osteopenia Pulmonary hypertension Uterine prolapse Home Medications aspirin 81 mg chewable tablet (Aspirin Childrens) 81 mg PO DAILY heart health 11/27/22 [History Last Taken 11/27/22 10:00] lisinopril 20 mg tablet 25 mg PO BID blood pressure 11/27/22 [History Last Taken 11/27/22 10:00] acetaminophen 500 mg tablet 1,000 mg PO Q8H PRN pain #1 TAB 01/19/23 [Rx Last Taken Unknown] gabapentin 100 mg capsule 100 mg PO BID #21 caps 01/19/23 [Rx Last Taken Unknown] tramadol 50 mg tablet 50 mg PO Q6H PRN PRN Pain #20 tabs 01/19/23 [Rx Last Taken Unknown] buspirone 5 mg tablet 5 mg PO BID #60 tabs 01/20/23 [Rx Last Taken Unknown] methocarbamol 500 mg tablet 500 mg PO QHS 03/21/23 [History Last Taken Unknown] metoprolol succinate 100 mg tablet,extended release 24 hr 100 mg PO QHS 03/21/23 [History Last Taken Unknown] Allergy/AdvReac Type Severity Reaction Status Date / Time amlodipine AdvReac Intermediate Other Verified 03/21/23 00:02 Family History Mother Diabetes Hypertension Heart disease CVA (cerebral vascular accident) Father Prostate cancer Son Non-Hodgkin lymphoma, Onset Age: 55 Surgical History History of abdominal surgery History of cholecystectomy History of shoulder surgery Hx of cataract extraction Social History household members: none Smoking Status: Never smoker alcohol intake: former details: She drinks 1-2 glasses of wine 3-4 times a month. substance use type: does not use ROS ROS Narrative Pertinent positives and pertinent negatives as noted in HPI. All other systems were reviewed and are negative Vital Signs Vital Signs Vital Signs: 03/20/23 23:58 03/21/23 00:38 03/21/23 01:58 Temperature 97.8 F Temperature Source Temporal Pulse Rate 95 87 Respiratory Rate 16 18 Respiratory Effort Normal Respiratory Depth Normal Respiratory Pattern Normal Blood Pressure 142/85 H 171/83 H Blood Pressure Mean 104 112 Pulse Ox 98 95 Oxygen Delivery Method Room Air Room Air Room Air Weight Weight: 68.039 kg Body Mass Index (BMI) 26.5 Physical Exam Narrative Physical exam: General: Well-nourished, well-developed. Head: Normocephalic, atraumatic, no tenderness Eyes: Vision is grossly intact. EOMI ENT, no trauma, moist mucous membranes, no rhinorrhea Neck: Nontender, No thyromegaly. CVS: Regular rate and rhythm. S1-S2 present. No murmur, gallop or rub. Respiratory : clear to auscultation bilaterally, chest wall nontender Abdomen: Soft, nontender, nondistended, normal bowel sounds, no masses : Deferred Back: Nontender, no CVA tenderness Extremities: Nontender extremities. Skin: Normal color, no trauma, abrasions Neuro: Alert, oriented, cranial nerves II through XII grossly intact. Psychiatry: Normal mood. Normal affect. Not depressed. Not anxious. Results Lab / Micro Data Result Diagrams: 03/21/23 00:10 03/21/23 00:10 Labs: Laboratory Results - last 24 hr 03/21/23 00:10: WBC 10.3, RBC 4.14 L, Hgb 13.0, Hct 38.1, MCV 92.0, MCH 31.4, MCHC 34.1, RDW Std Deviation 43.6, RDW Coeff of Aurelio 12.9, Plt Count 155, MPV 9.5, Immature Gran % (Auto) 1.000 H, Neut % (Auto) 86.5 H, Lymph % (Auto) 6.0 L, Door % (Auto) 5.4, Eos % (Auto) 0.2, Baso % (Auto) 0.9, Absolute Neuts (auto) 8.9 H, Absolute Lymphs (auto) 0.62 L, Nucleated RBC % 0 03/21/23 00:10: Sodium 141, Potassium 3.3 L, Chloride 107, Carbon Dioxide 28.0, Anion Gap 6, BUN 14, Creatinine 0.58, Estim Creat Clear Calc 36.50, Est GFR (MDRD) Af Amer 129, Est GFR (MDRD) Non-Af 107, BUN/Creatinine Ratio 24.3 H, Glucose 139 H, Calcium 9.0, Total Creatine Kinase [address] 03/21/23 00:23 IMPRESSION: No CT evidence of acute intracranial hemorrhage or injury. Senescent changes and atherosclerosis without significant change from November 27, 2022 Electronically Signed: Miguel Brown MD at 2:14 EDT , Cervical Spine CT 03/21/23 00:23 IMPRESSION: No evidence of acute cervical spinal fracture or spondylolisthesis. Mild spondylosis. Superior cervical fusion anomalies as above. Electronically Signed: Miguel Brown MD at 2:21 EDT , Chest CT 03/21/23 00:23 IMPRESSION: No visible fracture or evidence of acute thoracic injury. Multiple small noncalcified nodules with large left upper lobe calcified nodule compatible with sequela of prior granulomatous disease. 2 mm right middle lobe nodule is new from December 17, 2022 and medial left lower lobe 4 mm nodule is slightly increased in size from December 17, 2022. One-year follow-up CT is recommended to ensure stability Trace pericardial effusion new from December 17, 2022. Electronically Signed: Miguel Brown MD at 2:54 EDT , Hip/Pelvis X-Ray 03/21/23 00:23 IMPRESSION: Age-indeterminate left inferior pubic ramus deformity and possibly superior left pubic deformity, appearing subacute or chronic though not appreciated and December 17, 2022. Correlate for history of interval injury or localized tenderness. CT could further evaluate as clinically indicated. Electronically Signed: Miguel Brown MD at 2:26 EDT , Assessment & Plan Assessment/Plan (1) Closed fracture of pubic ramus: (2) Inability to walk: (3) Hypertension: PLAN: Plan Closed fracture of inferior and superior pubic rami Impression of hip/pelvis x-ray by radiology: Age-indeterminate left inferior pubic ramus deformity and possibly superior left pubic deformity, appearing subacute or chronic though not appreciated and December 17, 2022. Hip/pelvis x-ray was independently interpreted and I agree with radiology interpretation. CT chest showed a pulmonary nodule which has enlarged and for which patient should follow-up longitudinally. Brain CT with senescent changes. As needed narcotic pain medications ordered. Bowel protocol and antiemetics in place. PT and OT to work with patient's and make recommendations for placement if necessary. Case management consult. Hypertension Blood pressure is not within goal. Home blood pressure medication will be continued.. Hydralazine prn ordered. Trend blood pressures. DVT prophylaxis: Subcu Lovenox ordered. Charges/Coding Visit Charges Inpatient E&M: 86902 Init Hosp L2
[2023-03-21] MEDS: oxyCODONE 5 MG Tablet PO ×2 (04:40→18:09)
[2023-03-21] MEDS: tiZANidine HCl 2 MG Tablet 4 MG PO (04:40)
[2023-03-21 06:13] LABS: Absolute Lymphocyte Count 0.79 X10^3/uL (0.83-4.51); Basophil# 0.06 X10^3/uL; Basophil% 0.9 % (0-1); Eosinophil# 0.06 X10^3/uL; Eosinophils% 0.9 % (0-5); Hematocrit 34.9 % (37-47); Hemoglobin 11.9 g/dL (12.0-15.0); Lymphocyte # 0.79 X10^3/ul (0.83-4.51); Lymphocyte % 12.3 % (19-41); Mean Corp Hgb Conc 34.1 g/dL (32-36); Mean Corpuscular Hgb 31.5 pg (27.0-32.0); Mean Corpuscular Volume 92.3 fL (81-99); Mean Platelet Vol. 9.3 fl (6.2-12.0); Monocyte# 0.48 X10^3/uL; Monocyte% 7.5 % (0-10); NRBC Flagged by Analyzer 0 % (0-5); Neutrophil # 4.98 X10^3/uL (2.7-7.7); Neutrophil % 77.6 % (47-70); Platelet Count 161 K/mm3 (150-450); RBC Distribution Width SD 43.8 fl (35.1-43.9); Red Blood Count 3.78 M/mm3 (4.2-5.4); White Blood Count 6.4 K/mm3 (4.4-11.0)
[2023-03-21 06:38] LABS: Anion Gap 5 (5-15); BUN 10 mg/dL (7-18); BUN/Creat Ratio 21.1 RATIO (10-20); Calcium,Total 8.3 mg/dL (8.5-10.1); Chloride 108 mmol/L (98-107); Creatinine, Serum 0.47 mg/dL (0.55-1.02); EST Glomerular Filtration Rate 134 mL/min (>60); Est Glom Filt Rate - Afr Amer 162 mL/min (>60); Glucose 145 mg/dL (74-106); Potassium 2.8 mmol/L (3.5-5.1); Sodium Level 139 mmol/L (136-145)
[2023-03-21 08:17] LABS: Phosphorus 2.9 mg/dL (2.5-4.9)
[2023-03-21] MEDS: Enoxaparin 40 MG/0.4 ML Syringe SC (09:45)
--- NOTE | 2023-03-21 11:00 | CASEMGMT ---
NORMA DUNCAN into pt room, pt lying in bed in no distress. Pt states she cannot walk at this time. Pt goes into a conversation regarding her medical history from this year recently with being in [facility] PCU as well as a surgery for neuroendocrine tumor at [place] and going to the Rehab Unit at [facility]. Pt states she lives alone in a single story home. Pt states typically she is I in ADL's and was managing her meds on her own. Pt states she was spoken to regarding going to the therapy floor. Pt states she is interested in this but she has not seen a doctor this morning to know if this is an option. She is aware that this RN PERLA will make the SW aware and she will come in to speak with her. Pt denies further needs. NORMA DUNCAN explained HA form, patient voiced understanding. Pt signed form and filed in chart. Pt provided with a copy of signed HA form.
[2023-03-21] MEDS: Potassium Chloride Oral Tablet 20 MEQ 60 MEQ PO (11:31)
--- NOTE | 2023-03-21 12:09 | CASEMGMT ---
Social Work Consult: snf vs. rehab Referral source: NORMA DUNCAN This mental health social worker met with patient in room. Introduced self and mental health social worker role. Patient agreeable to speak with this mental health social worker. This mental health social worker broached conversation of assisted placement vs. rehab unit. Patient would like to discharge to the Inpatient Rehab unit, if patent qualifies. This mental health social worker inquired about contacting patient daughterNina to update on discharge plan, patient agreeable to this mental health social worker contacting Nina. Telephone call to Nina. This mental health social worker introduced self and mental health social worker role. This mental health social worker communicating above information. Nina inquired about plan if patient is not able to go to the Inpatient Rehab unit. This mental health social worker communicating to Nina that patient is currently not admitted to the hospital and is under observation status, meaning that Medicare will not cover a alf facility unless patient has a three midnight admission say. Nina voiced understanding that if patient does not qualify for the Inpatient Rehab Unit that patent would need to private pay for assisted. Nina voicing that patient is on a limited income but does have some savings. This mental health social worker offered active listening and support to Nina. Telephone call to Inpatient EliabJen. Lezama to review patient case. PLAN: Inpatient Rehab Unit, pending acceptance. Social Work to continue to follow. Heber GARCIA, WILLIAM
[2023-03-21] MEDS: Metoprolol(XL)Succ 100 MG Tablet PO (21:34)
[2023-03-21] MEDS: busPIRone 5 MG Tablet PO (21:34)
[2023-03-21] MEDS: Methocarbamol 500 MG Tablet PO (21:34)
[2023-03-21] MEDS: Gabapentin 100 MG Capsule PO (21:34)
[2023-03-21] MEDS: Lisinopril 20 MG Tablet PO (21:35)
[2023-03-22 03:25] VITALS: BP 152/85; PULSE 94; RESP 18; TEMP 37.1; O2SAT 96
[2023-03-22 06:54] LABS: Anion Gap 5 (5-15); BUN 10 mg/dL (7-18); BUN/Creat Ratio 17.7 RATIO (10-20); Calcium,Total 9.1 mg/dL (8.5-10.1); Chloride 106 mmol/L (98-107); Creatinine, Serum 0.56 mg/dL (0.55-1.02); EST Glomerular Filtration Rate 109 mL/min (>60); Est Glom Filt Rate - Afr Amer 132 mL/min (>60); Glucose 122 mg/dL (74-106); Potassium 3.4 mmol/L (3.5-5.1); Sodium Level 138 mmol/L (136-145)
--- NOTE | 2023-03-22 09:04 | PCM.PN.HOSP ---
Subjective Subjective Continues to have some mild pelvic pain that makes it difficult for ambulation. No issues overnight Objective Data Objective Data Vital Signs: Vital Signs Temp Pulse Resp BP Pulse Ox O2 Del Method 98.8 F 94 18 152/85 H 96 Room Air 03/22/23 03:25 03/22/23 03:25 03/22/23 03:25 03/22/23 03:25 03/22/23 03:25 03/22/23 03:25 Oxygen Delivery Method Room Air Weight: 139 lb 4.8 oz Body Mass Index (BMI) 24.6 Intake & Output: Intake and Output for Last 24 Hours 03/21/23 03/22/23 03/23/23 03:59 03:59 03:59 Intake Total 1000 / 1000 250 / 250 100 / 100 Balance 1000 / 1000 250 / 250 100 / 100 Lab / Micro Data Result Diagrams: 03/21/23 05:50 03/22/23 05:42 Labs: Laboratory Results - last 24 hr 03/22/23 05:42: Sodium 138, Potassium 3.4 L, Chloride 106, Carbon Dioxide 27.0, Anion Gap 5, BUN 10, Creatinine 0.56, Estim Creat Clear Calc 36.50, Est GFR (MDRD) Af Amer 132, Est GFR (MDRD) Non-Af 109, BUN/Creatinine Ratio 17.7, Glucose 122 H, Calcium 9.1 Physical Exam Narrative General: Alert, Oriented x3, Cooperative, No apparent distress HEENT: Atraumatic, PERRLA, EOMI, Normocephalic Oral: Moist Mucosa Neck: Supple, No JVD Lungs: Diminished, Normal air movement, No rhonchi, No wheeze, No rales Cardiovascular: Regular rate, Regular Rhythm, Normal S1, Normal S2, No murmurs Abdomen: Soft, Non Tender, Non-Distended, No Hepato-splenomegaly Extremities: No edema, Capillary Refill Less than 3 Seconds Skin: No rashes, No breakdown Musculoskeletal: No Tenderness to Palpation of Joints or Extremities Neurological: Motor Exam 5/5 strength throughout, Sensory exam intact to light touch and pain Psych/Mental Status: Normal Affect, Appropriate Assessment & Plan Assessment/Plan (1) Closed fracture of pubic ramus: (2) Inability to walk: (3) Hypertension: PLAN: Plan 1. Nondisplaced left inferior superior rami fracture ? The age is indeterminate as she says that she has had some falls recently so is unclear as to which one led to the fracture ? She is limited by pain ? No obvious displacement of the fractures and there does not appear to be any femur fractures ? Continue with PT/OT ? Other work-up is unremarkable 2. Pulmonary nodule ? She will need to repeat to CT scan in about 1 year for follow-up, she does have evidence of previous granulomatous disease on CT 3. Hypertension ? Stable ? Continue with her home medications 4. Anxiety/depression ? Stable ? Continue with her home medication DVT: Lovenox Charges/Coding Visit Charges Inpatient E&M: 44328 Subs Hosp L2
[2023-03-22] MEDS: Acetaminophen 500 MG Tablet 1000 MG PO (09:10)
[2023-03-22] MEDS: Gabapentin 100 MG Capsule PO (09:10)
[2023-03-22] MEDS: busPIRone 5 MG Tablet PO (09:11)
[2023-03-22] MEDS: Aspirin 81 MG TAB.CHEW PO (09:11)
[2023-03-22] MEDS: Lisinopril 20 MG Tablet PO (09:11)
[2023-03-22] MEDS: Enoxaparin 40 MG/0.4 ML Syringe SC (09:11)
[2023-03-22] MEDS: Potassium Chloride Oral Tablet 20 MEQ 40 MEQ PO (09:15)
[2023-03-22 09:25] VITALS: BP 157/79; PULSE 94; RESP 18; TEMP 36.7; O2SAT 97
[2023-03-22 10:00] VITALS: O2SAT 95
--- NOTE | 2023-03-22 11:07 | TREXTCAR_ITS ---
Diet Diet Order/Speech Therapy: 03/21/23 03:46 Diet: Cardiac - Heart Healthy Food consistency:: Regular Liquid Consistency:: Regular/Thin Routine Orders/Code Status Routine Lab Work: CBC and BMP Code Status: Full Code Wound(s) LEFT KNEE: Wound Type: Abrasion Therapies Weight Bearing: Toe-touch weight bearing Problem/Diagnosis (1) Closed fracture of pubic ramus: Status: Acute Code(s): S32.599A - Other specified fracture of unspecified pubis, initial encounter for closed fracture (2) Inability to walk: Status: Acute Code(s): R26.2 - Difficulty in walking, not elsewhere classified (3) Hypertension: Status: Chronic Code(s): I10 - Essential (primary) hypertension Plan 1. Nondisplaced left inferior superior rami fracture ? The age is indeterminate as she says that she has had some falls recently so is unclear as to which one led to the fracture ? She is limited by pain ? No obvious displacement of the fractures and there does not appear to be any femur fractures ? Continue with PT/OT ? Other work-up is unremarkable 2. Pulmonary nodule ? She will need to repeat to CT scan in about 1 year for follow-up, she does have evidence of previous granulomatous disease on CT 3. Hypertension ? Stable ? Continue with her home medications 4. Anxiety/depression ? Stable ? Continue with her home medication DVT: Lovenox Allergies/Procedures Done in Hospital Allergies amlodipine Adverse Reaction (Intermediate, Verified 03/21/23 00:02) Other Lower extremity edema Procedures: None Type of Care/Length of Stay Estimated LOS: Convalescent Care Less Than 30 days Type of Care Needed: Skilled Rehab Potential: Good Prognosis: Good Additional Orders/Day of Discharge Day of Discharge: 03/22/23 Discharge Plan Admission Admit Date/Time: 03/21/23 03:17 Attending Provider: Phil Bauer Primary Care Provider: Isai Hercules Consulting Providers: Leonidas Joe Discharge Orders/Prescriptions Prescriptions: Continued lisinopril 20 mg tablet 25 mg PO BID Label Comments: TAKE 1 TABLET BY MOUTH TWICE A DAY aspirin [Aspirin Childrens] 81 mg tablet,chewable 81 mg PO DAILY Label Comments: once a day gabapentin 100 mg Capsule 100 mg PO BID Qty: 21 0RF Rx Instructions: BID for 1 week then Q HS for 1 week and then DC tramadol 50 mg Tablet 50 mg PO Q6H PRN PRN (Reason: Pain) Qty: 20 0RF Rx Instructions: Take every 6 H as needed for pain not relieved with Acetaminophen acetaminophen 500 mg Tablet 1,000 mg PO Q8H PRN (Reason: pain) Qty: 1 0RF buspirone 5 mg tablet 5 mg PO BID Qty: 60 1RF methocarbamol 500 mg tablet 500 mg PO QHS Rx Instructions: Take 1 at HS and may have a second during the day for back pain. metoprolol succinate 100 mg tablet extended release 24 hr 100 mg PO QHS Referrals / Follow Up: Isai Hercules MD [Primary Care Provider] - Disposition Disposition (needs filled in before D/C Order can be placed): Assisted Facility
[2023-03-22 11:09] VITALS: BP 145/78; PULSE 95; RESP 18; TEMP 36.7; O2SAT 95
--- NOTE | 2023-03-22 11:18 | CASEMGMT ---
Social Work Telephone call from Rehab Unit, Lise. Lise reports that patient has been accepted and can admit today. This social worker delinquency prevention updated patient and patent daughter on above information as well as physician and nursing staff. PLAN: Inpatient Rehab Unit. Heber GARCIA, WILLIAM
[2023-03-22 11:30] VITALS: O2SAT 95
--- NOTE | 2023-03-22 11:38 | PCM.DC.SUM ---
Providers Date of Admission: 03/21/23 Primary Care Physician: Dr. Isai Hercules MD Reason For Visit: LEFT INFERIOR SUPERIOR PUBIC RAMUS DEFORMITY Diagnosis Discharge Diagnosis (1) Closed fracture of pubic ramus: Status: Acute Code(s): S32.599A - Other specified fracture of unspecified pubis, initial encounter for closed fracture (2) Inability to walk: Status: Acute Code(s): R26.2 - Difficulty in walking, not elsewhere classified (3) Hypertension: Status: Chronic Code(s): I10 - Essential (primary) hypertension Medications at Discharge Home Medications aspirin 81 mg chewable tablet (Aspirin Childrens) 81 mg PO DAILY heart health 11/27/22 lisinopril 20 mg tablet 25 mg PO BID blood pressure 11/27/22 acetaminophen 500 mg tablet 1,000 mg PO Q8H PRN pain #1 TAB 01/19/23 gabapentin 100 mg capsule 100 mg PO BID #21 caps 01/19/23 tramadol 50 mg tablet 50 mg PO Q6H PRN PRN Pain #20 tabs 01/19/23 buspirone 5 mg tablet 5 mg PO BID #60 tabs 01/20/23 methocarbamol 500 mg tablet 500 mg PO QHS 03/21/23 metoprolol succinate 100 mg tablet,extended release 24 hr 100 mg PO QHS 03/21/23 Hospital Course Operations None Procedures None Summary of Care Provided Minutes Spent on Discharge: 35 Hospital Course: Per HPI: EDWIN ERAZO, is a 82 F with a significant history of hypertension; 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 Reportedly patient was doing some gardening work pulling some roldan and using a shovel.? As she pulled some roldan she lost her balance and she fell onto her left side.? She reports excruciating pain at the left side for which reason she could not easily get up. At the emergency department attempt was made for patient to get up and go home.? However patient was too weak although she could? stand she could not walk.? Imaging done at the emergency department showed a possible fracture/deformity of the left inferior and superior pubis femur fracture.? 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 Part of small intestines and her colon was removed alongside the tumor.? After that patient was admitted to our rehab unit for rehabilitation.? At this time family is looking to go to the same routes of patient being admitted to [facility] rehabilitation for rehab. Her fall before this presentation was about 6 hours before presentation.? However 3 days before presentation patient had another fall. Hospital Course: 1. Nondisplaced left inferior and possible superior rami fracture?82-year-old female status post fall present to the hospital with lower pelvic/abdominal pain. Work-up was all negative, does appear that she has a subacute pubic ramus fracture on the left is unclear as to how long its been there as she says that she has had several different falls fairly recently. She did work with physical therapy and was excepted to the rehab unit today. I discussed with her the plan for discharge she expressed understanding of the risk benefits of going to the rehab unit and would like to go today. All of her lab work has been stable as have her vitals, her blood pressure had been slightly elevated on admission this is likely due to anxiety and stress from the fall but I do recommend close monitoring while at the rehab unit and if necessary adjusting medications. 2. Pulmonary nodule?CT chest demonstrated a slight enlargement of pulmonary nodule recommending repeat CT scan in 1 year, there are signs of history of granulomatous disease. 3. Hypertension, anxiety, depression are chronic medical conditions which complicate her care. Her home medications were continued where appropriate Weight / BMI Weight Weight: 139 lb 4.8 oz Body Mass Index (BMI) 24.6 ABG / Lab / Microbiology Data Result Diagrams: 03/21/23 05:50 03/22/23 05:42 Laboratory: Laboratory Results - last 24 hr 03/22/23 05:42: Sodium 138, Potassium 3.4 L, Chloride 106, Carbon Dioxide 27.0, Anion Gap 5, BUN 10, Creatinine 0.56, Estim Creat Clear Calc 36.50, Est GFR (MDRD) Af Amer 132, Est GFR (MDRD) Non-Af 109, BUN/Creatinine Ratio 17.7, Glucose 122 H, Calcium 9.1 Meaningful Use Info Meaningful Use Diagnoses (Choose all that apply): None applicable Discharge Plan Admission Admit Date/Time: 03/21/23 03:17 Attending Provider: Phil Bauer Primary Care Provider: Isai Hercules Consulting Providers: Leonidas Joe Discharge Orders/Prescriptions Prescriptions: Continued lisinopril 20 mg tablet 25 mg PO BID Label Comments: TAKE 1 TABLET BY MOUTH TWICE A DAY aspirin [Aspirin Childrens] 81 mg tablet,chewable 81 mg PO DAILY Label Comments: once a day gabapentin 100 mg Capsule 100 mg PO BID Qty: 21 0RF Rx Instructions: BID for 1 week then Q HS for 1 week and then DC tramadol 50 mg Tablet 50 mg PO Q6H PRN PRN (Reason: Pain) Qty: 20 0RF Rx Instructions: Take every 6 H as needed for pain not relieved with Acetaminophen acetaminophen 500 mg Tablet 1,000 mg PO Q8H PRN (Reason: pain) Qty: 1 0RF buspirone 5 mg tablet 5 mg PO BID Qty: 60 1RF methocarbamol 500 mg tablet 500 mg PO QHS Rx Instructions: Take 1 at HS and may have a second during the day for back pain. metoprolol succinate 100 mg tablet extended release 24 hr 100 mg PO QHS Referrals / Follow Up: Isai Hercules MD [Primary Care Provider] - Disposition Disposition (needs filled in before D/C Order can be placed): Care Home Facility Charges/Coding Visit Charges Inpatient E&M: 50065 Disch Hosp >30min
--- NOTE | 2023-03-22 12:00 | PHA.DC.MR ---
Pharmacy Service has performed discharge medication reconciliation for this patient. The patient's discharge medication list was reviewed for discrepancies and discrepancies were resolved. Home Medications aspirin 81 mg chewable tablet (Aspirin Childrens) 81 mg PO DAILY heart health 11/27/22 lisinopril 20 mg tablet 20 mg PO BID blood pressure 11/27/22 acetaminophen 500 mg tablet 1,000 mg PO Q8H PRN pain #1 TAB 01/19/23 gabapentin 100 mg capsule 100 mg PO BID #21 caps 01/19/23 tramadol 50 mg tablet 50 mg PO Q6H PRN PRN Pain #20 tabs 01/19/23 buspirone 5 mg tablet 5 mg PO BID #60 tabs 01/20/23 methocarbamol 500 mg tablet 500 mg PO QHS 03/21/23 metoprolol succinate 100 mg tablet,extended release 24 hr 100 mg PO QHS 03/21/23
== END 2023-03-22 13:45 ==
LOC: ED 03-21 03:23 → MS3 03-21 04:27
PROVIDERS: Admitting Provider Hospitalist; Emergency Provider Emergency Medicine; PCP Family Medicine; Visit Provider Family Medicine
DX: S32.592A Other specified fracture of left pubis, initial encounter for closed fracture (principal); C7A.8 Other malignant neuroendocrine tumors; Z79.82 Long term (current) use of aspirin; F41.9 Anxiety disorder, unspecified; I10 Essential (primary) hypertension; Z79.899 Other long term (current) drug therapy; R91.8 Other nonspecific abnormal finding of lung field; F32.A Depression, unspecified; Y93.H2 Activity, gardening and landscaping; W19.XXXA Unspecified fall, initial encounter; Y92.007 Garden or yard of unspecified non-institutional (private) residence as the place of occurrence of the external cause; R26.2 Difficulty in walking, not elsewhere classified; J45.909 Unspecified asthma, uncomplicated
CPT/HCPCS: 96361; 96372 ×2; 96374; 96375; 99285; 36415; 70450; 71250; 72125; 73502; 80048; 82550; 83735; 84100; 85025; 97162; 97166; 97530; 97535; 99221; J7030; A4216; G0378; J2405

== ENCOUNTER 2023-03-22 14:30 | Inpatient (IN) | payer MEDICARE, OTHER, SELFPAY ==
[2023-03-22 14:42] VITALS: BP 139/69; PULSE 87; RESP 17; TEMP 36.8; O2SAT 91; BMI 25.0
--- NOTE | 2023-03-22 17:47 | PCM.HP.STD ---
[facility] - General General Date of Admission: 03/22/23 Date of Service: 03/22/23 Chief Complaint: L hip/pelvic pain due to L inf and Sup pubic rami fractures sustained in a fall. 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 She presented to the emergency department at [facility] on 03/21/2023 after a fall in the yard at home. X-rays in the emergency department revealed a left inferior pubic ramus deformity and possibly a superior left pubic deformity, both were age-indeterminate. She complained of chest pain and a CT chest was done and revealed multiple small noncalcified nodules with large left upper lobe calcified nodule, a 2 mm right middle lobe nodule (new since December 17, 2022), and a medial left lower lobe 4 mm nodule which is slightly increased in size from December 17, 2022. There were no rub fractures. CT scan of the cervical spine showed no evidence of acute cervical spinal fracture, spondylolisthesis or displacement. There was mild spondylosis present. CT brain showed no evidence of acute intracranial hemorrhage or injury. She could not ambulate and she was admitted to the hospitalist service. PT/OT recommended acute inpt rehab and Jennifer was transferred to the rehab unit on 03/22/23 for 3 hours of therapy daily to restore independence/function at or near her level prior to the fall. [facility] Medical History (Updated 03/24/23 @ 11:[address] Yanet Cabral, ) Anxiety and depression Asthma Grade I diastolic dysfunction History of CVA (cerebrovascular accident) History of viral encephalitis HTN (hypertension) Insomnia Left atrial enlargement Neuroendocrine neoplasm of gastrointestinal tract Osteopenia Pulmonary hypertension Uterine prolapse Home Medications aspirin 81 mg chewable tablet (Aspirin Childrens) 81 mg PO DAILY heart health 11/27/22 [History Last Taken 11/27/22 10:00] lisinopril 20 mg tablet 20 mg PO BID blood pressure 11/27/22 [History Last Taken 11/27/22 10:00] methocarbamol 500 mg tablet 500 mg PO QHS muscle spasm 03/21/23 [History Last Taken Unknown] metoprolol succinate 100 mg tablet,extended release 24 hr 100 mg PO QHS BP 03/21/23 [History Last Taken Unknown] acetaminophen 500 mg tablet 1,000 mg PO Q8H pain 03/22/23 [History Last Taken Unknown] buspirone 5 mg tablet 5 mg PO BID depression 03/22/23 [History Last Taken Unknown] gabapentin 100 mg capsule 100 mg PO BID pain 03/22/23 [History Last Taken Unknown] tramadol 50 mg tablet 50 mg PO Q8H Pain 03/22/23 [History Last Taken Unknown] Allergy/AdvReac Type Severity Reaction Status Date / Time amlodipine AdvReac Intermediate Other Verified 03/21/23 00:02 Family History Mother Diabetes Hypertension Heart disease CVA (cerebral vascular accident) Father Prostate cancer Son Non-Hodgkin lymphoma, Onset Age: 55 Surgical History (Updated 03/24/23 @ 11:[address] Yanet Cabral DO) History of abdominal surgery History of cholecystectomy History of shoulder surgery Hx of cataract extraction S/P colon resection Social History household members: none Smoking Status: Never smoker alcohol intake: former details: She drinks 1-2 glasses of wine 3-4 times a month. substance use type: does not use ROS Review of Systems ROS Unobtainable: due to mental status and other Details: She is not focused and is having pressured speech and flight of ideas. Not able to answer my questions because she is not listening to the question. Her only complaint to me is pain on the left side of the pelvis that is worse with movement and weight bearing. Vital Signs Vital Signs Vital Signs: 03/22/23 14:42 Temperature 98.3 F Temperature Source Temporal Pulse Rate 87 Respiratory Rate 17 Blood Pressure 139/69 H Blood Pressure Mean 92 Blood Pressure Source Monitor Blood Pressure Position Semi-Fowlers Blood Pressure Location Right Arm Pulse Ox 91 Oxygen Delivery Method Room Air Weight Weight: 141 lb 1.533 oz Body Mass Index (BMI) 25.0 Physical Exam Const alert, average body habitus and healthy appearing Constitutional Narrative: Appears to be in some pain when she is trying to stand and pivot to the bed. She is talking very fast and she has flight of ideas. Not allowing me to get a word in. HEENT normocephalic, head/scalp atraumatic and hearing grossly normal bilaterally HEENT Narrative: Dry mucous membranes Eyes PERRL, EOMs intact bilaterally, conjunctivae normal and no scleral icterus Eyes Narrative: No mattering of the eye lashes and no discharge from the eyes. No visual field deficits. Neck no JVD, No nodes and no carotid bruits General: trachea midline Chest Chest Narrative: Did not c/o pain with deep breathing. Chest: symmetrical chest wall rise Resp normal respiratory effort, normal air movement and clear to auscultation bilaterally Effort and Inspection: able to speak in complete sentences Cardio regular rate, regular rhythm, no rub and no gallops GI normal to inspection, nondistended, normoactive bowel sounds, soft to palpation and non-tender GI Narrative: She has tenderness with palpation of the left groin. Back/Spine no CVA tenderness Extremity no calf tenderness Extremity Narrative: Mild edema of the left distal lower extremity/ankle. No clubbing or cyanosis. Skin no wounds General Skin Exam: no breakdown Rashes: no rashes Neuro oriented x3, CN's II-XII intact bilaterally and moves all extremities Neuro Narrative: It is very painful when she attempts to move the left lower extremity. Psych Psych Narrative: She is very disorganized and has pressured speech. She talks incessantly and does not stop to let anyone else talk. She can not stay on topic. She attributed this to anxiety at the last admission but, she is on Buspar and I think she is even worse than the last visit. TSH was normal at the last visit. She has insomnia. She presents as igor. Has never been diagnosed as bipolar but, this is in my differential. Activity / Motor Behavior: hyperactive, disorganized, restless and avoids eye contact; Negative for appropriate eye contact or psychomotor slowing Speech: excessive, rapid and pressured Mood & Affect: elevated mood Thought Process: disorganized, flight of ideas and tangential Assessment & Plan Assessment/Plan (1) Accidental fall: QUALIFIERS: Encounter type: subsequent encounter Qualified Code(s): W19.XXXD - Unspecified fall, subsequent encounter (2) Physical debility: (3) Closed fracture of pubic ramus: QUALIFIERS: Encounter type: subsequent encounter Laterality: left (4) Inability to walk: (5) Cognitive dysfunction: (6) Uterine prolapse: (7) Hypertension: QUALIFIERS: Hypertension type: primary hypertension Qualified Code(s): I10 - Essential (primary) hypertension (8) Pulmonary nodule: PLAN: granulomatous disease +/- neuroendocrine metastatic nodules. (9) Insomnia: QUALIFIERS: Insomnia type: unspecified Qualified Code(s): G47.00 - Insomnia, unspecified PLAN: Plan PLAN PT for gait stability OT for ADL's ST for evaluation Analgesics as needed Bowel protocol Fall precautions Assess for Anxiety/Depression GI prophylaxis - not at this time. She has no hx of PUD and she is not c/o N/V/epigastric pain. DVT prophylaxis with enoxaparin Follow up with PCP and oncology following DC from IP Rehab AM lab including CMP, CBC, Mag and Phos ordered. Scheduled Tylenol 1 g p.o. every 8 hours and also scheduled tramadol 50 mg p.o. every 8 hours. She forgets to ask for tramadol and is having severe pain. She presents as if she is manic today. She has pressured speech, flight of ideas, restlessness, can not stay on topic and is unable to answer most direct questions because she starts talking about something else. She has insomnia. Some of this was present at the last admission but, it is much worse today. Will discuss FH with her dtr Vilma. Charges/Coding Visit Charges Inpatient E&M: 16600 Init Hosp L2
[2023-03-22 22:00] VITALS: BP 168/78; PULSE 112; RESP 18; TEMP 36.6; O2SAT 93
[2023-03-22] MEDS: traMADol 50 MG Tablet PO (22:05)
[2023-03-22] MEDS: busPIRone 5 MG Tablet PO (22:05)
[2023-03-22] MEDS: Gabapentin 100 MG Capsule PO (22:05)
[2023-03-22] MEDS: Acetaminophen 500 MG Tablet 1000 MG PO (22:06)
[2023-03-22] MEDS: Lisinopril 20 MG Tablet PO (22:06)
[2023-03-22] MEDS: Methocarbamol 500 MG Tablet PO (22:07)
[2023-03-22 22:10] VITALS: BP 168/78; PULSE 112
[2023-03-22] MEDS: Metoprolol(XL)Succ 100 MG Tablet PO (22:10)
[2023-03-23] MEDS: traMADol 50 MG Tablet PO ×3 (05:33→22:34)
[2023-03-23] MEDS: Enoxaparin 40 MG/0.4 ML Syringe SC (05:33)
[2023-03-23] MEDS: Acetaminophen 500 MG Tablet 1000 MG PO ×3 (05:33→20:58)
[2023-03-23 07:23] LABS: Bacteria 0 SEEN /hpf (None Seen); Mucous, Urine 0 SEEN /hpf (<or=2+); Red Blood Cells-Urine 0 SEEN /hpf (0-5); Squamous Epithelial Cells - UA 0 SEEN /hpf (5-10); White Blood Cells 0 SEEN /hpf (0-5)
[2023-03-23 07:26] LABS: Color, Urine Yellow (Yellow); Glucose, Dipstick Normal (Normal); Ketone-Dipstick Negative (Negative); Leukocyte Esterase-Dipstick Negative /ul (Negative); Nitrite-Dipstick Negative (Negative); Occult Blood-Urine 10 /ul (Negative); Protein-Dipstick 15 mg/dl (Negative); Specific Gravity, Urine 1.015 (1.002-1.030); Urine Bilirubin Dipstick Negative (Negative); Urine Clarity Clear (Clear); Urine Urobilinogen Normal (Normal)
[2023-03-23 07:38] VITALS: BP 150/76; PULSE 83; RESP 16; TEMP 36.6; O2SAT 94
[2023-03-23] MEDS: Lisinopril 20 MG Tablet PO ×2 (08:25→22:34)
[2023-03-23] MEDS: Aspirin 81 MG TAB.CHEW PO (08:25)
[2023-03-23] MEDS: busPIRone 5 MG Tablet PO ×2 (08:25→20:58)
[2023-03-23] MEDS: Gabapentin 100 MG Capsule PO ×2 (08:28→20:59)
--- NOTE | 2023-03-23 14:30 | EKG12_ITS ---
Test Reason : MED CHANGE Blood Pressure : / mmHG Vent. Rate : 088 BPM Atrial Rate : 088 BPM P-R Int : 176 ms QRS Dur : 070 ms QT Int : 334 ms P-R-T Axes : 011 010 024 degrees QTc Int : 404 ms Normal sinus rhythm Normal ECG When compared with ECG of 16-DEC-2022 09:46, Premature atrial complexes are no longer Present Confirmed by ANASTASIYA LANDAVERDE, JOSSUE ([id number]), managing editor MARYSOL IZAGUIRRE ([id number]) on 03/25/2023 9:21:25 AM Referred By: FLORINA Confirmed By:JOSSUE LANGFORD MD
--- NOTE | 2023-03-23 16:04 | CHAPLAIN ---
Type of Pastoral Visit _x__ Initial Visit ___ Follow-up Visit ___ On-call Visit ___ General Patient Visit ___ Spiritual Assessment ___ Family Conference ___ Bereavement ___ Rapid Response ___ Code Blue ___ Other (describe below) Pastoral Care Referral From _x__ Patient ___ Family ___ Nurse ___ Physician ___ Director Group Sales ___ Director Of Provider Relations ___ Other (describe below) Sacrament/Intervention _x__ Active listening ___ Anointing ___ Yazidism ___ Bereavement ___ Communion ___ Vannesa exploration ___ _x__ Life review _x__ Prayer ___ Reconciliation ___ Sacrament of Sick ___ Supportive presence ___ Wedding ___ Other (describe below) Pastoral Comments patient has been seen in previous admissions; pt was resting but awoke easily to knock on the door; pt talks softly and carries the entire conversation without need of questions although this padder tried many times to divert conversation to current events and her personal needs; pt gives very lengthy details about her experiences and moves from subject to subject; pt did ask for prayer support and that was given; long time given to listen to patient
[2023-03-23 20:50] VITALS: BP 133/74; PULSE 89; RESP 17; TEMP 36.4; O2SAT 96
[2023-03-23] MEDS: Methocarbamol 500 MG Tablet PO (20:58)
[2023-03-23 20:59] VITALS: BP 133/74; PULSE 89
[2023-03-23] MEDS: QUEtiapine 25 MG Tablet PO (20:59)
[2023-03-23] MEDS: Metoprolol(XL)Succ 100 MG Tablet PO (20:59)
[2023-03-23] MEDS: Senna/Docusate Sodium 1 Tablet 2 TABLET PO (21:02)
[2023-03-24] MEDS: Enoxaparin 40 MG/0.4 ML Syringe SC (05:08)
[2023-03-24] MEDS: Acetaminophen 500 MG Tablet 1000 MG PO ×3 (05:08→20:15)
[2023-03-24] MEDS: traMADol 50 MG Tablet PO ×3 (05:09→20:16)
--- NOTE | 2023-03-24 05:33 | NURSING ---
pt extremely painful this am when getting oob to the bsc, bladder scan completed and value was 522cc and pt was unable to void on the bsc
[2023-03-24] MEDS: Aspirin 81 MG TAB.CHEW PO (09:04)
[2023-03-24] MEDS: Lisinopril 20 MG Tablet PO ×2 (09:04→20:14)
[2023-03-24] MEDS: busPIRone 5 MG Tablet PO (09:04)
[2023-03-24] MEDS: Gabapentin 100 MG Capsule PO ×2 (09:04→20:16)
[2023-03-24 09:51] VITALS: BP 148/77; PULSE 94; RESP 18; TEMP 36.7; O2SAT 98
[2023-03-24 10:00] VITALS: RESP 17
--- NOTE | 2023-03-24 11:23 | PCM.RU.PYE ---
Admission Information Primary Diagnosis:: Debility due to L side superior and inferior pubic rami fractures. Status Changes from Prescreening?: Medical (She is unable to follow instructions due to igor) Actual Problem List:: Pain, ALteration in Cmfrt, Cognitve Impr/Memory Loss, Alteration in Sleep, Mobility Impaired, Self Care Deficit and Alteration-Leisure Activ. Potential Problem List:: DVT, Bleeding, Infection, UTI, Aspiration, Falls, Skin Integrity and Depression Risk of Complications DVT: LMWH and ROSA Hose Bleeding: Monitor Lab Values, Nursing to Teach Precautions for anti-coagulation therapy., Wound, if applicable, to be assessed every shift. and Stroke patients assessed for lethargy or change in status. Infection: Clinical Staff to Monitor for S/S of infection: and S/S of infection include fever, redness, warmth, etc. Urinary Tract Infection: Monitor for frequency, burning, discomfort, or incontinence. and Nursing will obtain urine sample for urinalysis and C&S when ordered. Aspiration: Clinical staff will monitor for coughing, drooling, congestion., Speech will evaluate swallowing and dsyphasia. and Nursing will monitor patient swallowing during meals. Falls: Patient will be evaluated for Fall Precautions and Patient will be placed on Fall Precautions as indicated per protocol. Skin Breakdown: Nursing will assess skin daily using assessment tool. and Nursing will place on Skin Breakdown Precautions as indicated. Pain: Clinical staff will assess patient's pain level per protocol., Medications will be given, if needed, and the pain level reassessed. and Other methods: Massage, distraction, decrease stimulus, etc. used PRN. Plan of Care Patient requires physician specializing in physical medicine and rehab oversight to provide close medical supervision of rehab issues including: Pain Management, Sleep Problems, Bowel and Bladder, Medical and co-morbidity Management, DVT prophylaxis, Rehabilitation Leadership and Coordination of treatment team Patient needs Physical Therapy: For a minimum of 1 hour and At least 5 out of 7 days Patient needs Physical Therapy to improve:: Mobility, Strengthening, Transfers, Stretching, ROM, Endurance, Stairs, Gait and Balance Patient needs Occupational Therapy: For a minimum of 1 hour and At least 5 out of 7 days Patient needs Occupational Therapy to improve ADL's incl.: Eating, Grooming, Bathing, Dressing, Toileting, Toilet transfers, Community Reintegration, Higher functioning activities, Household tasks, Adaptive Equipment, Splinting and Other activities as determined Patient requires speech therapy: For a minimum of 1 hour and At least 5 out of 7 days Patient requires speech therapy for: Swallowing, Cognition, Language Skills and Compensatory Strategies Patient requires 24/ Rehabilitation Nursing for: Pain Issues, Identifying and preventing risk factors, Monitoring and reporting current medical conditions, Assisting with ambulation, transfer, and all ADL's, Teaching patients about disease process and medications, Family teaching, Providing safe environment, Bowel and Bladder Issues, Skin integrity and Medication Management Patient needs Customer Service Analyst/ Case Management for: Discharge Planning, Arranging Home Equipment or Services and Family Interventions Patient needs Dietary and Nutrition Services for: Adequate Nutrition, Nutritional Supplements and Nutritional Education Goals Patient will remain: free from falls Patient will perform bed mobility at: MOD I level of assist. Patient will complete transfers from bed to chair at: MOD I level of assist. Patient will ambulate: 100 feet (At standby assist on various surfaces to allow her to return to her home/community.) and with LRD Patient will complete upper body dressing at: MOD I level of assist. Patient will complete lower body dressing at: MOD I level of assist. (With adaptive equipment as needed) Patient will complete toileting at: MOD I level of assist. Patient will perform bathing at: - (Supervision for safety) Patient will complete grooming at: MOD I level of assist. Patient will complete home management skills at: MOD I level of assist. Patient will achieve: - (A send/descend 2 steps with 1 handrail at standby assist to allow access to her home entrance) Patient will have pain level of: of 3 or less Patient's skin will: remain intact Patient will receive: adequate nutrition. Discharge Planning Pt Prognosis for Sig. Practical Improv. w/in Reasonable Time: Good Estimated Length of stay (days): 21 Anticipated D/C Destination: Home
--- NOTE | 2023-03-24 11:31 | PCM.PROGNOTE ---
Subjective Subjective Jennifer was seen on team rounds today. Her daughter Vilma participated by phone. All questions were answered to their satisfaction. Afebrile VSS Maintaining appropriate oxygen saturation on RA Oral intake is fair. She ate 50 to 74% of her supper last night and 50 to 74% of her breakfast this morning. Discussed with nursing - no problems that need addressed Reviewed the PT/OT/ST notes Medication list reviewed. Jennifer was started on Seroquel 25 mg at bedtime yesterday. Nursing reported that she slept much better but seemed groggy this morning. She has not been sleeping well for several days and I suspect she is relaxed enough to finally rest. I saw her on the Nu-step today and she was able to do this without c/o pain to me. She was a little groggy but, speech is less pressured today. Still not focusing and still with flight of ideas. Not as restless. Better able to redirect today and keep on task. ROS is difficult because she can not focus enough to answer questions because she is talking about something else. Does not appear to be in distress while using the Nu-Step. She denies pain in the R lateral side today. AM cortisol today is 20.9 which is within the normal limits. I reviewed the EKG done yesterday afternoon and it showed normal sinus rhythm with no significant ST or T wave changes and a normal QT interval. Objective Data Objective Data Vital Signs: Vital Signs Temp Pulse Resp BP Pulse Ox O2 Del Method 98.0 F 94 18 148/77 H 98 Room Air 03/24/23 09:51 03/24/23 09:51 03/24/23 09:51 03/24/23 09:51 03/24/23 09:51 03/24/23 09:51 Oxygen Delivery Method Room Air Weight: 141 lb 1.533 oz Body Mass Index (BMI) 25.0 Intake & Output: Intake and Output for Last 24 Hours 03/22/23 03/23/23 03/24/23 23:59 23:59 23:59 Intake Total 100 / 100 200 / 200 Output Total 200 / 200 1320 / 1320 600 / 600 Balance -200 / -200 -1220 / -1220 -400 / -400 Lab / Micro Data Labs: Laboratory Results - last 24 hr 03/24/23 05:52: Cortisol 20.90 Physical Exam Const alert and no apparent distress General Appearance: cooperative Resp clear to auscultation bilaterally Cardio regular rate, regular rhythm and no gallops GI normal to inspection, nondistended, normoactive bowel sounds, soft to palpation and non-tender Extremity no calf tenderness General Extremity: Negative for edema Skin General Skin Exam: no breakdown Rashes: no rashes Wounds: Negative for wounds noted Psych Psych Narrative: Less restless today and the speech is not as pressured. Able to do the Nu-Step. Happy with her pain control except when bearing wt. Assessment & Plan Assessment/Plan (1) Accidental fall: QUALIFIERS: Encounter type: subsequent encounter Qualified Code(s): W19.XXXD - Unspecified fall, subsequent encounter (2) Physical debility: (3) Closed fracture of pubic ramus: QUALIFIERS: Encounter type: subsequent encounter Laterality: left (4) Inability to walk: (5) Cognitive dysfunction: (6) Uterine prolapse: (7) Hypertension: QUALIFIERS: Hypertension type: primary hypertension Qualified Code(s): I10 - Essential (primary) hypertension (8) Pulmonary nodule: (9) Insomnia: QUALIFIERS: Insomnia type: unspecified Qualified Code(s): G47.00 - Insomnia, unspecified PLAN: Plan 1. Continue therapy 2. Continue Seroquel 25 mg p.o. nightly....after she catches up on sleep may consider adding a daytime dose of 12.5 mg. 3. 20 mEq of potassium daily x3 days and then recheck on Tuesday. Also recheck H&H on Tuesday. 4. Continue current pain regimen. 5. I recommend that she follow up with psychiatry post DC for evaluation and med management. 6. Start Ice 3-4 times a day, felicity after therapy for pain control and add Miacalcin to her drug regimen to help with acute fracture pain. When we were on rounds Jennifer was quiet, did not interrupt and she made good eye contact with the individual speaking. She asked an appropriate question and she told me that she felt calmer and her brain was not racing. 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 Hercules discontinued. Continue to monitor closely while on Seroquel for depression or breakthrough igor. Charges/Coding Visit Charges Inpatient E&M: 39918 Subs Hosp L2
--- NOTE | 2023-03-24 12:56 | CASEMGMT ---
Social Work IDT met with patient and dtr via conference call for Team meeting. Discussed patient's progress in PT/OT/ST/SN. Educated to Medicare benefit. SW to share Medicare approval once known. Pt's goal is to return home alone. identified pt possibly having bipolar disorder and igor and started pt on medications. Pt has shown immediate improvement with start of medication. Will ReTeam weekly. SW to continue to follow for DC planning. Cecy Morillo, ACCOUNT SUPERVISOR ESTATE PLANNER
[2023-03-24] MEDS: Potassium Chloride Oral Tablet 20 MEQ PO (14:01)
[2023-03-24] MEDS: Calcitonin-Salmon 1 SPRAY SPRAY NARES (16:48)
[2023-03-24 19:30] VITALS: BP 132/68; PULSE 81; RESP 18; TEMP 36.8; O2SAT 94
[2023-03-24 20:14] VITALS: BP 132/68; PULSE 81
[2023-03-24] MEDS: Metoprolol(XL)Succ 100 MG Tablet PO (20:14)
[2023-03-24] MEDS: Methocarbamol 500 MG Tablet PO (20:14)
[2023-03-24] MEDS: QUEtiapine 25 MG Tablet PO (20:16)
[2023-03-25] MEDS: Acetaminophen 500 MG Tablet 1000 MG PO ×3 (06:43→21:17)
[2023-03-25] MEDS: traMADol 50 MG Tablet PO ×3 (06:44→21:17)
[2023-03-25] MEDS: Enoxaparin 40 MG/0.4 ML Syringe SC (06:59)
[2023-03-25 07:47] VITALS: BP 152/65; PULSE 104; RESP 20; TEMP 36.4; O2SAT 95
[2023-03-25] MEDS: Potassium Chloride Oral Tablet 20 MEQ PO (08:33)
[2023-03-25] MEDS: Aspirin 81 MG TAB.CHEW PO (08:33)
[2023-03-25] MEDS: Calcitonin-Salmon 1 SPRAY SPRAY NARES (08:33)
[2023-03-25] MEDS: Lisinopril 20 MG Tablet PO ×2 (08:34→21:17)
[2023-03-25] MEDS: Gabapentin 100 MG Capsule PO ×2 (08:37→21:17)
[2023-03-25 11:27] VITALS: O2SAT 96
[2023-03-25 21:00] VITALS: BP 135/73; PULSE 87; RESP 14; TEMP 36.8; O2SAT 95
[2023-03-25] MEDS: Methocarbamol 500 MG Tablet PO (21:16)
[2023-03-25 21:18] VITALS: BP 135/73; PULSE 87
[2023-03-25] MEDS: Metoprolol(XL)Succ 100 MG Tablet PO (21:18)
[2023-03-25] MEDS: QUEtiapine 25 MG Tablet PO (21:18)
--- NOTE | 2023-03-25 21:55 | NURSING ---
Nina, pt poa requested copy of pts medication list. Poa voices concerns of pt being over medicated and notes changes in her behavior this evening of not being able to focus on task, more than usual. pt noted to have increased agitation and confusion this hs by staff. pt had called daughter to come in d/t issues that had happened earlier in the day. Daughter came and stayed with pt until 2200 when pt was calmer and went to bed. pt noted to have increased anxiety when daughter was getting ready to leave. pt was agreeable when asked by staff for poa to have a copy of current medication list, because she needed to know what she was taking and didn't want to be taking something that she didn't know .
--- NOTE | 2023-03-26 02:39 | NURSING ---
Reviewed and agree with Borwn KATE, documentation and assessment charting.
[2023-03-26] MEDS: Acetaminophen 500 MG Tablet 1000 MG PO ×3 (05:36→20:41)
[2023-03-26] MEDS: Enoxaparin 40 MG/0.4 ML Syringe SC (05:37)
[2023-03-26] MEDS: traMADol 50 MG Tablet PO ×3 (05:37→20:40)
[2023-03-26 06:53] VITALS: O2SAT 95
[2023-03-26] MEDS: Potassium Chloride Oral Tablet 20 MEQ PO (08:06)
[2023-03-26] MEDS: Lisinopril 20 MG Tablet PO ×2 (08:06→20:40)
[2023-03-26] MEDS: Aspirin 81 MG TAB.CHEW PO (08:06)
[2023-03-26 08:12] VITALS: BP 160/79; PULSE 87; RESP 16; TEMP 36.1; O2SAT 98
[2023-03-26] MEDS: Calcitonin-Salmon 1 SPRAY SPRAY NARES (09:26)
[2023-03-26] MEDS: Gabapentin 100 MG Capsule PO ×2 (09:27→20:41)
[2023-03-26] MEDS: QUEtiapine 25 MG Tablet 12.5 MG PO (13:28)
--- NOTE | 2023-03-26 13:32 | PN_ITS ---
Subjective Subjective Afebrile VSS - BP in the AM are above goal consistently. Diastolic is always within normal limits. Maintaining appropriate oxygen saturation on RA Oral intake is fair to good. Sometimes eating 75-100% and sometimes 50-74%. Discussed with nursing - Sleeping better at night. Confused more at night. Nursing notes she is confused during the day and she is still having some flight of ideas. She was not groggy this morning. She perseverates about many different things. She was more emotional yesterday and was crying a little talking about how good her NA was to her. Reviewed the PT/OT/ST notes Medication list reviewed. Jennifer is very tearful today. She can tell me her name and the month but, can not tell me the year and she is being evasive. She is upset that the therapist she saw today is not the regular therapist and that she did not know him. She did not want to do therapy. She tells me that she is calmer and she is no longer having hallucinations. She is sleeping better at night. She is talking about missing her son again.......he . She perseverated on this the last admission also. I asked her how often she sees her dtr Nina and she told me not often. I asked if she felt safe at home and she told me yes. She is tearful and somewhat angry today......she can not tell me why she is angry but, she seems to feel like she is not in control. She could not tell me why she was in the hospital in November and she can not tell me why she is in the hospital now. She does not seem to know where she is today and is being evasive. She seems very frustrated. I reviewed the 30 day event monitor done following the last admission and there is no AF but, I do not see a visit with cardiology. 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 visit and any neurology or psychiatry notes. Objective Data Objective Data Vital Signs: Vital Signs Temp Pulse Resp BP Pulse Ox O2 Del Method 97.0 F L 87 16 160/79 H 98 Room Air 03/26/23 08:12 03/26/23 08:12 03/26/23 08:12 03/26/23 08:12 03/26/23 08:12 03/26/23 08:12 Oxygen Delivery Method Room Air Weight: 141 lb 1.533 oz Body Mass Index (BMI) 25.0 Intake & Output: Intake and Output for Last 24 Hours 03/24/23 03/25/23 03/26/23 23:59 23:59 23:59 Intake Total 650 / 650 480 / 480 100 / 100 Output Total 1300 / 1300 300 / 300 Balance -650 / -650 180 / 180 100 / 100 Physical Exam Const alert Constitutional Narrative: tearful. Tells me that she feels tired today. Sometimes cooperative and sometimes not. Resp clear to auscultation bilaterally Cardio regular rate, regular rhythm and no gallops GI normal to inspection, nondistended, normoactive bowel sounds, soft to palpation and non-tender Extremity no calf tenderness General Extremity: Negative for edema Skin General Skin Exam: no breakdown Rashes: no rashes Assessment & Plan Assessment/Plan (1) Accidental fall: QUALIFIERS: Encounter type: subsequent encounter Qualified Code(s): W19.XXXD - Unspecified fall, subsequent encounter (2) Physical debility: (3) Closed fracture of pubic ramus: QUALIFIERS: Encounter type: subsequent encounter Laterality: left (4) Inability to walk: (5) Cognitive dysfunction: (6) Uterine prolapse: (7) Hypertension: QUALIFIERS: Hypertension type: primary hypertension Qualified Code(s): I10 - Essential (primary) hypertension (8) Pulmonary nodule: (9) Insomnia: QUALIFIERS: Insomnia type: unspecified Qualified Code(s): G47.00 - Insomnia, unspecified (10) Dory: PLAN: Plan 1. Continue therapy 2. Add Seroquel 12.5 mg daily in the AM. 3. Lab ordered for Tuesday. 4. I suspect that Jennifer is bipolar and that this runs in her family from what her dtr tells me. Memory has always been poor and she has always talked excessively and not listened. 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 Now that the hallucinations and dory have resolved she is depressed and angry. I am thinking possibly she would benefit from a geropsych admission but, she needs therapy for the fractured pelvis. I will try and get a curb side consult with psychiatry on Tuesday......no consultation available in the hospital and get some guidance on medication. Charges/Coding Visit Charges Inpatient E&M: 13592 Subs Hosp L2
--- NOTE | 2023-03-26 18:23 | NURSING ---
All day patient has had mixture of mood swings from happy, sad, angry. Patient has flight of ideas and expressing manic like behavior. Patient alert to self at times and needs constant cues and redirection and then at times she can be alert to person, place, and time. Will monitor.
[2023-03-26 19:23] VITALS: BP 158/83; PULSE 80; RESP 17; TEMP 37; O2SAT 97
[2023-03-26 19:45] VITALS: BP 166/84; PULSE 100; RESP 18; TEMP 36.8; O2SAT 96
[2023-03-26] MEDS: Methocarbamol 500 MG Tablet PO (20:09)
[2023-03-26 20:10] VITALS: PULSE 80
[2023-03-26] MEDS: QUEtiapine 25 MG Tablet PO (20:10)
[2023-03-26] MEDS: Metoprolol(XL)Succ 100 MG Tablet PO (20:10)
[2023-03-27] MEDS: Enoxaparin 40 MG/0.4 ML Syringe SC (05:08)
[2023-03-27] MEDS: Acetaminophen 500 MG Tablet 1000 MG PO ×3 (05:08→20:44)
[2023-03-27] MEDS: traMADol 50 MG Tablet PO ×3 (05:08→20:43)
[2023-03-27] MEDS: Lisinopril 20 MG Tablet PO ×2 (07:16→20:43)
[2023-03-27] MEDS: QUEtiapine 25 MG Tablet 12.5 MG PO (07:17)
[2023-03-27] MEDS: Aspirin 81 MG TAB.CHEW PO (07:17)
[2023-03-27 09:39] VITALS: BP 162/76; PULSE 101; RESP 16; TEMP 36.8; O2SAT 93
[2023-03-27] MEDS: Gabapentin 100 MG Capsule PO ×2 (10:32→20:43)
[2023-03-27 19:56] VITALS: BP 144/86; PULSE 92; RESP 16; TEMP 36.4; O2SAT 97
[2023-03-27 20:43] VITALS: BP 144/86; PULSE 92
[2023-03-27] MEDS: Methocarbamol 500 MG Tablet PO (20:43)
[2023-03-27] MEDS: Metoprolol(XL)Succ 100 MG Tablet PO (20:43)
[2023-03-27] MEDS: QUEtiapine 25 MG Tablet PO (20:44)
--- NOTE | 2023-03-28 03:27 | NURSING ---
Addendum entered by Jacquelyn Celestin 03/28/23 04:30: Pt continues to be restless, hallucinating about her dog being in the room, states that she saw a cat run under her bed. Reoriented to place, assured pt that her daughter took her dog back home on Tuesday evening. Per standing order, pt striaght cathed and urine sent for UA d/t confusion, urine cloudy and odorous. Original Note: Pt restless, has not slept much. Pt assisted into shower, assisted with cleaning up with warm water, hair washed. Still needs redirected, confused and confabulating. Dressed and assisted back to bed, repositioned for comfort. Pt very appreciative of all care, states she will try to rest for a few hours, will continue to monitor.
[2023-03-28 04:31] LABS: Mucous, Urine 0 SEEN /hpf (<or=2+); Squamous Epithelial Cells - UA 0 SEEN /hpf (5-10)
[2023-03-28 04:40] LABS: Color, Urine Yellow (Yellow); Glucose, Dipstick Normal (Normal); Ketone-Dipstick Negative (Negative); Leukocyte Esterase-Dipstick 500 /ul (Negative); Nitrite-Dipstick Positive (Negative); Occult Blood-Urine 150 /ul (Negative); Protein-Dipstick 30 mg/dl (Negative); Specific Gravity, Urine 1.025 (1.002-1.030); Urine Bilirubin Dipstick Negative (Negative); Urine Clarity Clear (Clear); Urine Urobilinogen Normal (Normal)
[2023-03-28 04:50] LABS: Red Blood Cells-Urine 0-5 SEEN /hpf (0-5); White Blood Cells 25-50 SEEN /hpf (0-5)
[2023-03-28 04:51] LABS: Bacteria 3+ /hpf (None Seen)
[2023-03-28] MEDS: Acetaminophen 500 MG Tablet 1000 MG PO ×3 (05:11→20:35)
[2023-03-28] MEDS: traMADol 50 MG Tablet PO ×3 (05:11→20:34)
[2023-03-28] MEDS: Enoxaparin 40 MG/0.4 ML Syringe SC (05:12)
[2023-03-28 05:45] LABS: Hematocrit 42.1 % (37-47); Hemoglobin 13.9 g/dL (12.0-15.0)
[2023-03-28 06:12] LABS: Anion Gap 3 (5-15); BUN 17 mg/dL (7-18); BUN/Creat Ratio 32.8 RATIO (10-20); Calcium,Total 9.2 mg/dL (8.5-10.1); Chloride 105 mmol/L (98-107); Creatinine, Serum 0.52 mg/dL (0.55-1.02); EST Glomerular Filtration Rate 120 mL/min (>60); Est Glom Filt Rate - Afr Amer 146 mL/min (>60); Glucose 110 mg/dL (74-106); Potassium 3.6 mmol/L (3.5-5.1); Sodium Level 139 mmol/L (136-145)
--- NOTE | 2023-03-28 06:15 | NURSING ---
Dr. Cabral notified per text regarding UA.
[2023-03-28] MEDS: QUEtiapine 25 MG Tablet 12.5 MG PO (07:10)
[2023-03-28] MEDS: Aspirin 81 MG TAB.CHEW PO (07:10)
[2023-03-28] MEDS: Lisinopril 20 MG Tablet PO ×2 (07:10→20:35)
[2023-03-28 07:27] VITALS: BP 164/84; PULSE 93; RESP 17; TEMP 36.7; O2SAT 96
[2023-03-28] MEDS: Gabapentin 100 MG Capsule PO ×2 (07:44→20:34)
[2023-03-28] MEDS: 0.9% Saline Lock 10 ML Syringe IV (09:20)
--- NOTE | 2023-03-28 09:28 | PN_ITS ---
Subjective Subjective Day #1 Afebrile VSS-blood pressures have been consistently elevated for the past 2 days. Maintaining appropriate oxygen saturation on RA Oral intake is fair. She has taken 50 to 74% of her last 3 meals. Oral intake yesterday for fluids was 1140. Discussed with nursing - Jennifer had a good day yesterday. Last night she became agitated and more confused. Was up most of the night. A UA was sent and is + for cystitis. No N/V. Reviewed the PT/OT/ST notes Medication list reviewed. The specific gravity on the urine was 1.025. There was positive protein and positive occult blood. Nitrite was positive. There were 25-50 WBCs per high- power field with no squamous epithelial cells and 3+ bacteria. She was started on Rocephin today until the culture report is available. ROS is very difficult today with Delirium on top of dory. She denies dysuria and nausea but, appetite is decreased. Not c/o pain today. Objective Data Objective Data Vital Signs: Vital Signs Temp Pulse Resp BP Pulse Ox O2 Del Method 98.0 F 93 17 164/84 H 96 Room Air 03/28/23 07:27 03/28/23 07:27 03/28/23 07:27 03/28/23 07:27 03/28/23 07:27 03/28/23 07:27 Oxygen Delivery Method Room Air Weight: 141 lb 1.533 oz Body Mass Index (BMI) 25.0 Intake & Output: Intake and Output for Last 24 Hours 03/26/23 03/27/23 03/28/23 23:59 23:59 23:59 Intake Total 100 / 100 1140 / 1140 Output Total 300 / 300 1000 / 1000 500 / 500 Balance -200 / -200 140 / 140 -500 / -500 Lab / Micro Data 03/28/23 05:31 03/28/23 05:31 Labs: Laboratory Results - last 24 hr 03/28/23 04:00: Urine Color Yellow, Urine Clarity Clear, Urine pH 6.0, Ur Specific [place] 1.025, Urine Protein 30 H, Urine Glucose (UA) Normal, Urine Ketones Negative, Urine Occult Blood 150 H, Urine Nitrite Positive H, Urine Bilirubin Negative, Urine Urobilinogen Normal, Ur Leukocyte Esterase 500 H, Urine RBC 0-5 SEEN, Urine WBC 25-50 SEEN, Ur Squamous Epith Cells 0 SEEN, Urine Bacteria 3+, Urine Mucus 0 SEEN 03/28/23 05:31: Hgb 13.9, Hct 42.1, Sodium 139, Potassium 3.6, Chloride 105, Ca rbon Dioxide 31.0, Anion Gap 3 L, BUN 17, Creatinine 0.52 L, Estim Creat Clear Calc 36.50, Est GFR (MDRD) Af Amer 146, Est GFR (MDRD) Non-Af 120, BUN/Creatinine Ratio 32.8 H, Glucose 110 H, Calcium 9.2 Physical Exam Const alert Constitutional Narrative: She is having flight of ideas today. She is telling me that she was not in the hospital last night but she was in the basement somewhere. I cannot seem to dissuade her of this idea. Has been having hallucinations again. She seems very fearful today. Trying to get out of the chair and setting off the alarm frequently. Had to have a sitter for the morning. Neck supple Resp normal respiratory effort, normal air movement and clear to auscultation bilaterally Effort and Inspection: Negative for tachypneic Cardio regular rate, regular rhythm and no gallops GI normal to inspection, nondistended, normoactive bowel sounds, soft to palpation and non-tender GI Narrative: No guarding with palpation. Extremity no calf tenderness General Extremity: Negative for edema Skin General Skin Exam: no breakdown Rashes: no rashes Assessment & Plan Assessment/Plan (1) Accidental fall: QUALIFIERS: Encounter type: subsequent encounter Qualified Code(s): W19.XXXD - Unspecified fall, subsequent encounter (2) Physical debility: (3) Closed fracture of pubic ramus: QUALIFIERS: Encounter type: subsequent encounter Laterality: left (4) Cognitive dysfunction: (5) Hypertension: QUALIFIERS: Hypertension type: primary hypertension Qualified C ode(s): I10 - Essential (primary) hypertension (6) Dory: (7) UTI (urinary tract infection): (8) Delirium: PLAN: Plan 1. Continue therapy 2. Increase Seroquel to 25 mg p.o. twice daily. 3. Continue Rocephin 1 g IV daily until results of the urine culture are available 4. 2 L of IV fluid in light of urinary tract infection, increased HGB, inc reased BUN and increase specific gravity in the urine 5. Weight today and then every 72 hours thereafter. Charges/Coding Visit Charges Inpatient E&M: 22230 Subs Hosp L2
--- NOTE | 2023-03-28 19:05 | NURSING ---
Daughter provided update this morning with patient's change of condition over night. New order for ATB due to UA results per Dr. Cabral.
[2023-03-28] MEDS: Methocarbamol 500 MG Tablet PO (20:35)
[2023-03-28] MEDS: QUEtiapine 25 MG Tablet PO (20:35)
[2023-03-28 20:36] VITALS: BP 169/79; PULSE 95
[2023-03-28] MEDS: Metoprolol(XL)Succ 100 MG Tablet PO (20:36)
[2023-03-28 20:43] VITALS: BP 168/76; PULSE 76; RESP 16; TEMP 36.1; O2SAT 93
[2023-03-29] MEDS: traMADol 50 MG Tablet PO ×3 (05:04→20:52)
[2023-03-29] MEDS: Acetaminophen 500 MG Tablet 1000 MG PO ×3 (05:04→20:51)
[2023-03-29] MEDS: Enoxaparin 40 MG/0.4 ML Syringe SC (05:04)
[2023-03-29 05:10] VITALS: BMI 24.1
[2023-03-29 07:38] VITALS: BP 168/78; PULSE 85; RESP 18; TEMP 36.7; O2SAT 97
[2023-03-29] MEDS: Aspirin 81 MG TAB.CHEW PO (08:49)
[2023-03-29] MEDS: Gabapentin 100 MG Capsule PO ×2 (08:49→20:51)
[2023-03-29] MEDS: QUEtiapine 25 MG Tablet PO ×2 (08:49→20:50)
[2023-03-29] MEDS: Lisinopril 20 MG Tablet PO ×2 (08:50→20:52)
[2023-03-29] MEDS: Ceftriaxone 1 GM/50 ML BAG IV (09:59)
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
[2023-03-29] MEDS: Divalproex Sodium 250 MG Tablet PO (16:29)
[2023-03-29 19:53] VITALS: BP 160/70; PULSE 69; RESP 18; TEMP 36.3; O2SAT 96
[2023-03-29] MEDS: Doxazosin 1 MG Tablet PO (20:50)
[2023-03-29 20:51] VITALS: PULSE 69
[2023-03-29] MEDS: Methocarbamol 500 MG Tablet PO (20:51)
[2023-03-29] MEDS: Metoprolol(XL)Succ 100 MG Tablet PO (20:51)
[2023-03-30 06:00] VITALS: BMI 24.3
[2023-03-30] MEDS: Acetaminophen 500 MG Tablet 1000 MG PO ×3 (08:04→21:00)
[2023-03-30] MEDS: Gabapentin 100 MG Capsule PO ×2 (08:04→20:59)
[2023-03-30] MEDS: Enoxaparin 40 MG/0.4 ML Syringe SC (08:04)
[2023-03-30] MEDS: Divalproex Sodium 250 MG Tablet PO ×2 (08:05→17:04)
[2023-03-30] MEDS: Aspirin 81 MG TAB.CHEW PO (08:05)
[2023-03-30] MEDS: Cholecalciferol (Vit D3) 125 MCG CAPSULE (5,000 UNITS) PO (08:05)
[2023-03-30] MEDS: Lisinopril 20 MG Tablet PO ×2 (08:05→21:01)
[2023-03-30] MEDS: traMADol 50 MG Tablet PO ×3 (08:05→21:00)
[2023-03-30] MEDS: Calcitonin-Salmon 1 SPRAY SPRAY NARES (08:08)
[2023-03-30 08:28] VITALS: BP 150/71; PULSE 95; RESP 18; TEMP 36.6; O2SAT 95
--- NOTE | 2023-03-30 09:00 | EKG12_ITS ---
Test Reason : GENERAL Blood Pressure : / mmHG Vent. Rate : 088 BPM Atrial Rate : 088 BPM P-R Int : 184 ms QRS Dur : 068 ms QT Int : 340 ms P-R-T Axes : 045 -07 019 degrees QTc Int : 411 ms Normal sinus rhythm with sinus arrhythmia Normal ECG When compared with ECG of 23-MAR-2023 16:20, No significant change was found Confirmed by ANASTASIYA LANDAVERDE, JOSSUE ([id number]), medical transcription editor MARYSOL IZAGUIRRE ([id number]) on 03/31/2023 10:37:03 AM Referred By: FLORINA Confirmed By:JOSSUE LANGFORD MD
[2023-03-30] MEDS: QUEtiapine 25 MG Tablet PO (10:50)
[2023-03-30] MEDS: Ceftriaxone 1 GM/50 ML BAG IV (11:30)
[2023-03-30] MEDS: 0.9% Saline Lock 10 ML Syringe IV (11:31)
--- NOTE | 2023-03-30 13:32 | PCM.PROGNOTE ---
Subjective Subjective Day #3 Rocephin Afebrile VSS-blood pressure is better than it has been today and the a.m. blood pressure is 150/71 with a heart rate of 95. Maintaining appropriate oxygen saturation on RA Oral intake is better. She she ate 75 - 100% of breakfast and lunch today. Discussed with nursing - no problems thru the night last night. She is still setting off the alarm at times and can be impulsive. Reviewed the PT/OT/ST notes - She was more attentive in therapy today and able to follow instructions. She was able to ambulate today. Medication list reviewed. Depakote was added to the drug regimen today. Urine culture is positive for pansensitive E. coli EKG today shows normal sinus rhythm with a normal QT interval. No CP, SOB, lightheadedness, palpitations, nausea/vomiting/abdominal pain, dysuria, calf tenderness and cephalgia. She is not c/o pain in the left pelvis or her back today. She is on Tramadol and Acetaminophen scheduled every 8 hours. Objective Data Objective Data Vital Signs: Vital Signs Temp Pulse Resp BP Pulse Ox O2 Del Method 97.8 F 95 18 150/71 H 95 Room Air 03/30/23 08:28 03/30/23 08:28 03/30/23 08:28 03/30/23 08:28 03/30/23 08:28 03/30/23 08:28 Oxygen Delivery Method Room Air Weight: 137 lb 5.568 oz Body Mass Index (BMI) 24.3 Intake & Output: Intake and Output for Last 24 Hours 03/28/23 03/29/23 03/30/23 23:59 23:59 23:59 Intake Total 1235 / 1235 1155 / 1155 59.25 / 59.25 Output Total 1350 / 1350 600 / 600 Balance -115 / -115 555 / 555 59.25 / 59.25 Lab / Micro Data 03/28/23 05:31 03/28/23 05:31 Micro: Microbiology 03/28/23 04:00 Urine, Catheterized Urine Culture - Final Escherichia coli Physical Exam Const alert and no apparent distress Constitutional Narrative: she is quietly trying to work a puzzle in her room. Resp clear to auscultation bilaterally Cardio regular rate, regular rhythm and no gallops GI normal to inspection, nondistended, normoactive bowel sounds, soft to palpation and non-tender Extremity no calf tenderness General Extremity: Negative for edema Skin General Skin Exam: no breakdown Rashes: no rashes Assessment & Plan Assessment/Plan (1) Accidental fall: QUALIFIERS: Encounter type: subsequent encounter Qualified Code(s): W19.XXXD - Unspecified fall, subsequent encounter (2) Physical debility: (3) Closed fracture of pubic ramus: QUALIFIERS: Encounter type: subsequent encounter Laterality: left (4) Cognitive dysfunction: (5) Hypertension: QUALIFIERS: Hypertension type: primary hypertension Qualified Code(s): I10 - Essential (primary) hypertension (6) Dory: PLAN: Plan 1. Continue therapy 2. Discontinue Rocephin and start Duricef 1 g p.o. daily for 4 days to finish 5 days of tx for UTI 3. Continue Depakote and Seroquel at the current doses. If she is getting agitated in the afternoon will increase the Depakote to 250 mg TID. 4. EKG shows normal QTI 5. After she is a little more stable will change the Tramadol to PRN. 6. I called Dr. Padilla's office and left a VM asking if he would please call me and give a little advice on med management for dory in the elderly. Charges/Coding Visit Charges Inpatient E&M: 56658 Subs Hosp L2
[2023-03-30 19:23] VITALS: BP 161/65; PULSE 98; RESP 16; TEMP 36.8; O2SAT 98
[2023-03-30 20:59] VITALS: PULSE 98
[2023-03-30] MEDS: QUEtiapine 25 MG Tablet 50 MG PO (20:59)
[2023-03-30] MEDS: Doxazosin 1 MG Tablet PO (20:59)
[2023-03-30] MEDS: Methocarbamol 500 MG Tablet PO (20:59)
[2023-03-30] MEDS: Metoprolol(XL)Succ 100 MG Tablet PO (20:59)
[2023-03-30] MEDS: Cefadroxil 500 MG CAPSULE PO (20:59)
[2023-03-31] MEDS: Enoxaparin 40 MG/0.4 ML Syringe SC (06:26)
[2023-03-31] MEDS: Acetaminophen 500 MG Tablet 1000 MG PO ×3 (06:26→22:25)
[2023-03-31 06:41] VITALS: BMI 24.6
[2023-03-31] MEDS: traMADol 50 MG Tablet PO ×3 (06:55→22:25)
[2023-03-31 08:03] VITALS: BP 143/68; PULSE 93; RESP 16; TEMP 36.3; O2SAT 96
[2023-03-31] MEDS: Calcitonin-Salmon 1 SPRAY SPRAY NARES (08:16)
[2023-03-31] MEDS: Cholecalciferol (Vit D3) 125 MCG CAPSULE (5,000 UNITS) PO (08:17)
[2023-03-31] MEDS: Aspirin 81 MG TAB.CHEW PO (08:17)
[2023-03-31] MEDS: Lisinopril 20 MG Tablet PO ×2 (08:17→22:28)
[2023-03-31] MEDS: QUEtiapine 25 MG Tablet 50 MG PO ×2 (08:17→22:25)
[2023-03-31] MEDS: Divalproex Sodium 250 MG Tablet PO ×2 (08:17→16:30)
[2023-03-31] MEDS: Cefadroxil 500 MG CAPSULE PO ×2 (08:17→22:26)
[2023-03-31] MEDS: Gabapentin 100 MG Capsule PO ×2 (08:19→22:26)
--- NOTE | 2023-03-31 13:31 | CASEMGMT ---
Social Work IDT met with patient and dtr for Team meeting. Discussed patient's progress in PT/OT/ST/SN. Educated to Medicare approval of 16 days with DC 04/07. IDT recommending pt has 18/04 care d/t cognition and safety. Dtr noted she is going on vacation from 04/12-04/17 and is agreeable for pt to transfer to a SNF for continued care, especially while pt is out of town. SW offered SNF list of choices with quality and resource data. Dtr denied and requesting referral to [facility]. SW to place referral. Dr requesting oversight from psychiatrist and psychologist services at the accepting SNF to manage medications for possible bipolar disorder with depression and igor. Pt expressed feeling accomplished and better now noticing the improvements with the medication adjustments. Pt is focusing and allowing mutual conversations with others. ALY placed referrals to [facility] via [facility]. Cecy Morillo, RADHA PADGETTW
[2023-03-31] MEDS: 0.9% Saline Lock 10 ML Syringe IV (16:30)
[2023-03-31 19:25] VITALS: BP 154/71; PULSE 93; RESP 18; TEMP 36.7; O2SAT 97
[2023-03-31 22:00] VITALS: PULSE 89; RESP 16; O2SAT 96
[2023-03-31 22:25] VITALS: PULSE 92
[2023-03-31] MEDS: Metoprolol(XL)Succ 100 MG Tablet PO (22:25)
[2023-03-31] MEDS: Methocarbamol 500 MG Tablet PO (22:26)
[2023-03-31] MEDS: Doxazosin 1 MG Tablet PO (22:26)
[2023-04-01] MEDS: Acetaminophen 500 MG Tablet 1000 MG PO ×3 (07:05→22:01)
[2023-04-01] MEDS: traMADol 50 MG Tablet PO ×3 (07:06→22:00)
[2023-04-01] MEDS: Enoxaparin 40 MG/0.4 ML Syringe SC (07:06)
--- NOTE | 2023-04-01 07:16 | PCM.PROGNOTE ---
Subjective Subjective LATE ENTRY for 03/31/23 Jennifer was seen on TEAM rounds today. Her dtr Vilma was present in the room for rounds. Afebrile VSS-blood pressure was a little better this morning. Cardura was added to her drug regimen yesterday. Maintaining appropriate oxygen saturation on RA Oral intake is improving...... she ate 75 to 100% of her breakfast today. Discussed with nursing - no problems that need addressed. Slept better last night. Reviewed the PT/OT/ST notes Medication list reviewed. Much fewer chair alarms today. Less impulsive. She ambulated to and from the bathroom today with a FWW. Slow larry and she c.o pain in the Left pelvis. Tells me that the pain medication helps and the pain while sitting is not bad.......pain primarily with weight bearing. She is more aware of things that have occurred during this hospitalization. She still has some difficulty staying on topic and she rambles but, she is able to tell to get across to me how she is feeling about her health problems since November and she is frustrated and ready to move on She understands that the pain in the pelvis with weight bearing will gradually go away as the fx heals. She is now taking the Miacalcin again and I explained this not only helps to build bone, it helps with the pain on acute fractures. Jennifer denies chest pain, shortness of breath, lightheadedness, palpitations, nausea/vomiting/abdominal pain, flank pain, dysuria and calf tenderness. Objective Data Objective Data Vital Signs: Vital Signs Temp Pulse Resp BP Pulse Ox O2 Del Method 98.0 F 92 16 154/71 H 97 Room Air 03/31/23 19:25 03/31/23 22:25 03/31/23 22:00 03/31/23 19:25 03/31/23 19:25 03/31/23 22:00 Oxygen Delivery Method Room Air Weight: 139 lb 1.787 oz Body Mass Index (BMI) 24.6 Intake & Output: Intake and Output for Last 24 Hours 03/30/23 03/31/23 04/01/23 23:59 23:59 23:59 Intake Total 59.25 / 59.25 Balance 59.25 / 59.25 Lab / Micro Data 03/28/23 05:31 03/28/23 05:31 Micro: Microbiology 03/28/23 04:00 Urine, Catheterized Urine Culture - Final Escherichia coli Physical Exam Const Constitutional Narrative: A little drowsy but, participating in conversation and asking appropriate questions today. She is being cooperative with therapy HEENT Mouth: dry mucous membranes Resp normal respiratory effort, normal air movement and clear to auscultation bilaterally Cardio regular rate, regular rhythm and no gallops GI normal to inspection, nondistended, normoactive bowel sounds, soft to palpation and non-tender GI Narrative: No guarding with palpation of the abd and the suprapubic area. She has some pain in the Left buttock with wt bearing. No CVA tenderness. Extremity no calf tenderness General Extremity: Negative for edema Skin General Skin Exam: no breakdown Rashes: no rashes Assessment & Plan Assessment/Plan (1) Accidental fall: QUALIFIERS: Encounter type: subsequent encounter Qualified Code(s): W19.XXXD - Unspecified fall, subsequent encounter (2) Physical debility: (3) Closed fracture of pubic ramus: QUALIFIERS: Encounter type: subsequent encounter Laterality: left (4) Cognitive dysfunction: (5) Hypertension: QUALIFIERS: Hypertension type: primary hypertension Qualified Code(s): I10 - Essential (primary) hypertension (6) Igor: (7) UTI (urinary tract infection): (8) Delirium: PLAN: Plan 1. Continue therapy. Jennifer has made significant progress in the past 2 days and she is now able to ambulate. Managing the igor has been a challenge, felicity when she had delirum from UTI in conjunction with igor. She is now at a point where she can listen to what is being said to her and follow instruction. She tells me that she feels calmer and her brain is less scattered. Will continue the Depakote and Seroquel. 2. Recheck a EKG in a few days......has had no QT prolongation so far. 3. Continue Cardura for elevated blood pressure 4. [facility] from [facility] 5. We had an excellent talk with Jennifer and Vilma after TEAM meeting. I explained that I believe Jennifer has BPD. She is not depressed but, she is hypomanic chronically with flight of ideas and excessive speech but, she has been functional without medication. Since the stroke she is more impulsive and has poor safety awareness. I am not sure that she will be safe at home by herself any longer. We talked about the medications and that Depakote is a mood stabilizer and Seroquel is for acute igor. She may be able to come off Seroquel going forward but, she will need to see a psychiatrist to manage the medications. She has chosen [facility] as the [facility].....she has been there before and there is a psychiatrist on staff. I also told them Dr. Padilla is seeing patients in the building and that would be an option for them if she goes home. I answered all their questions to their satisfaction. Charges/Coding Visit Charges Inpatient E&M: 13548 Subs Hosp L2
[2023-04-01] MEDS: Aspirin 81 MG TAB.CHEW PO (08:27)
[2023-04-01] MEDS: QUEtiapine 25 MG Tablet 50 MG PO ×2 (08:28→21:55)
[2023-04-01] MEDS: Calcitonin-Salmon 1 SPRAY SPRAY NARES (08:28)
[2023-04-01] MEDS: Divalproex Sodium 250 MG Tablet PO ×2 (08:28→16:51)
[2023-04-01] MEDS: Cefadroxil 500 MG CAPSULE PO ×2 (08:28→21:58)
[2023-04-01] MEDS: Cholecalciferol (Vit D3) 125 MCG CAPSULE (5,000 UNITS) PO (08:29)
[2023-04-01] MEDS: Lisinopril 20 MG Tablet PO ×2 (08:29→22:13)
[2023-04-01] MEDS: Gabapentin 100 MG Capsule PO ×2 (08:32→22:00)
[2023-04-01 10:00] VITALS: BP 148/70; PULSE 94; RESP 16; TEMP 36.6; O2SAT 96
--- NOTE | 2023-04-01 13:54 | CASEMGMT ---
Addendum entered by Cecy Morillo 04/01/23 15:55: [facility] can accept and will get pt added to psychiatrist rotation upon admission. SW updated dtr. Original Note: [facility] is unable to accept as they do not have psychiatry services. SW phoned dtr to update and inquire about another facility. Dtr requesting referral to [facility]. Referral placed via [facility]. Cecy Morillo, RADHA PADGETTW
[2023-04-01 18:55] VITALS: BP 132/66; PULSE 73; RESP 15; TEMP 36.5; O2SAT 96
[2023-04-01 21:57] VITALS: PULSE 78
[2023-04-01] MEDS: Metoprolol(XL)Succ 100 MG Tablet PO (21:57)
[2023-04-01] MEDS: Doxazosin 1 MG Tablet PO (21:58)
[2023-04-01] MEDS: Methocarbamol 500 MG Tablet PO (21:58)
[2023-04-01 22:00] VITALS: PULSE 73; RESP 16; O2SAT 96
[2023-04-01] MEDS: 0.9% Saline Lock 10 ML Syringe IV (22:05)
[2023-04-02] MEDS: Enoxaparin 40 MG/0.4 ML Syringe SC (06:35)
[2023-04-02] MEDS: Acetaminophen 500 MG Tablet 1000 MG PO ×3 (06:35→20:38)
[2023-04-02] MEDS: traMADol 50 MG Tablet PO ×3 (06:35→20:37)
[2023-04-02 08:11] VITALS: BP 136/72; PULSE 76; RESP 15; TEMP 36.6; O2SAT 97
[2023-04-02 09:15] VITALS: RESP 16
[2023-04-02] MEDS: Cholecalciferol (Vit D3) 125 MCG CAPSULE (5,000 UNITS) PO (09:53)
[2023-04-02] MEDS: QUEtiapine 25 MG Tablet 50 MG PO ×2 (09:53→20:39)
[2023-04-02] MEDS: Divalproex Sodium 250 MG Tablet PO ×2 (09:53→16:49)
[2023-04-02] MEDS: Cefadroxil 500 MG CAPSULE PO ×2 (09:54→20:40)
[2023-04-02] MEDS: Aspirin 81 MG TAB.CHEW PO (09:54)
[2023-04-02] MEDS: Calcitonin-Salmon 1 SPRAY SPRAY NARES (09:54)
[2023-04-02] MEDS: Lisinopril 20 MG Tablet PO ×2 (09:54→20:38)
[2023-04-02] MEDS: Gabapentin 100 MG Capsule PO ×2 (09:58→20:38)
[2023-04-02] MEDS: 0.9% Saline Lock 10 ML Syringe IV ×2 (10:06→21:20)
[2023-04-02 15:00] VITALS: BMI 25.0
[2023-04-02 19:40] VITALS: BP 164/78; PULSE 84; RESP 16; TEMP 37; O2SAT 94
[2023-04-02] MEDS: Methocarbamol 500 MG Tablet PO (20:38)
[2023-04-02 20:39] VITALS: PULSE 76
[2023-04-02] MEDS: Metoprolol(XL)Succ 100 MG Tablet PO (20:39)
[2023-04-02] MEDS: Doxazosin 1 MG Tablet PO (20:39)
[2023-04-02 22:00] VITALS: PULSE 72; RESP 17; O2SAT 97
[2023-04-03 06:00] VITALS: BMI 25.0
[2023-04-03] MEDS: Enoxaparin 40 MG/0.4 ML Syringe SC (06:33)
[2023-04-03] MEDS: Acetaminophen 500 MG Tablet 1000 MG PO ×3 (06:33→21:47)
[2023-04-03] MEDS: traMADol 50 MG Tablet PO ×3 (06:33→21:53)
[2023-04-03 07:24] VITALS: BP 149/74; PULSE 81; RESP 15; TEMP 36.4; O2SAT 95
[2023-04-03] MEDS: Calcitonin-Salmon 1 SPRAY SPRAY NARES (09:58)
[2023-04-03] MEDS: QUEtiapine 25 MG Tablet 50 MG PO ×2 (09:59→21:48)
[2023-04-03] MEDS: Cefadroxil 500 MG CAPSULE PO ×2 (09:59→21:50)
[2023-04-03] MEDS: Aspirin 81 MG TAB.CHEW PO (09:59)
[2023-04-03] MEDS: Cholecalciferol (Vit D3) 125 MCG CAPSULE (5,000 UNITS) PO (09:59)
[2023-04-03] MEDS: Lisinopril 20 MG Tablet PO ×2 (09:59→21:51)
[2023-04-03] MEDS: Divalproex Sodium 250 MG Tablet PO ×2 (09:59→17:29)
[2023-04-03] MEDS: Gabapentin 100 MG Capsule PO ×2 (10:01→21:53)
[2023-04-03 19:53] VITALS: O2SAT 97
[2023-04-03 21:48] VITALS: BP 140/63; PULSE 84
[2023-04-03] MEDS: Metoprolol(XL)Succ 100 MG Tablet PO (21:48)
[2023-04-03] MEDS: Doxazosin 1 MG Tablet PO (21:50)
[2023-04-03] MEDS: Methocarbamol 500 MG Tablet PO (21:50)
[2023-04-03 22:00] VITALS: BP 140/63; PULSE 84; RESP 18; TEMP 37.2; O2SAT 96
[2023-04-04] MEDS: Enoxaparin 40 MG/0.4 ML Syringe SC (05:22)
[2023-04-04] MEDS: Acetaminophen 500 MG Tablet 1000 MG PO ×3 (05:23→22:21)
[2023-04-04] MEDS: traMADol 50 MG Tablet PO ×3 (05:23→22:21)
[2023-04-04 06:00] VITALS: BMI 24.7
[2023-04-04 08:02] VITALS: BP 119/60; PULSE 70; RESP 16; TEMP 36.6; O2SAT 94
[2023-04-04] MEDS: Gabapentin 100 MG Capsule PO ×2 (08:37→17:29)
[2023-04-04] MEDS: Cholecalciferol (Vit D3) 125 MCG CAPSULE (5,000 UNITS) PO (08:37)
[2023-04-04] MEDS: Cefadroxil 500 MG CAPSULE PO (08:37)
[2023-04-04] MEDS: Aspirin 81 MG TAB.CHEW PO (08:37)
[2023-04-04] MEDS: QUEtiapine 25 MG Tablet 50 MG PO ×2 (08:37→22:21)
[2023-04-04] MEDS: Divalproex Sodium 250 MG Tablet PO ×2 (08:37→17:29)
[2023-04-04] MEDS: Lisinopril 20 MG Tablet PO ×2 (08:37→22:21)
[2023-04-04] MEDS: Calcitonin-Salmon 1 SPRAY SPRAY NARES (08:42)
--- NOTE | 2023-04-04 12:18 | PCM.PROGNOTE ---
Subjective Subjective Afebrile VSS Maintaining appropriate oxygen saturation on RA Oral intake is good Discussed with nursing - no problems that need addressed Reviewed the PT/OT/ST notes Medication list reviewed. Jennifer is c/o pain in the left groin today. She denies radiation down the leg and also denies Paresthesia's. She tells me that she thinks she may have walked too far yesterday. I asked here where she walked and he walked with her and she told me that she walked all over the hospital with the nurses. That is not true. She denies CP, SOB, lightheadedness, N/V/abd pain, dysuria, urinary frequency or urgency and calf tenderness. She is still having a difficult time staying on topic and sometimes with word finding. She is aware now that she has difficulty with memory but, she thinks it must be due to pain medication. She has been sleeping much better. She is not napping during the day and does not seem drowsy. She is making good eye contact when talking with me and she is not monopolizing the conversation although she still has some excessive speech. I have not heard her alarm go off all day today and she is being less impulsive. Objective Data Objective Data Vital Signs: Vital Signs Temp Pulse Resp BP Pulse Ox O2 Del Method 97.8 F 70 16 119/60 94 Room Air 04/04/23 08:02 04/04/23 08:02 04/04/23 08:02 04/04/23 08:02 04/04/23 08:02 04/04/23 08:02 Oxygen Delivery Method Room Air Weight: 139 lb 8.842 oz Body Mass Index (BMI) 24.7 Intake & Output: Intake and Output for Last 24 Hours 04/02/23 04/03/23 04/04/23 23:59 23:59 23:59 Intake Total 1380 / 1380 1080 / 1080 Balance 1380 / 1380 1080 / 1080 Lab / Micro Data 03/28/23 05:31 03/28/23 05:31 Micro: Microbiology 03/28/23 04:00 Urine, Catheterized Urine Culture - Final Escherichia coli Physical Exam Const alert and no apparent distress Constitutional Narrative: Sitting in the recliner at the bedside. General Appearance: cooperative Resp normal respiratory effort, normal air movement and clear to auscultation bilaterally Resp Narrative: No conversational dyspnea. Effort and Inspection: Negative for tachypneic or labored Cardio regular rate, regular rhythm and no gallops GI normal to inspection, nondistended, normoactive bowel sounds, soft to palpation and non-tender Extremity no calf tenderness Extremity Narrative: The pain is localized in the L groin and the most proximal portion of the left thigh. It did not increase with palpation. It does not radiate down the leg. She is still taking Tramadol Q 8H for pain. General Extremity: Negative for edema Skin General Skin Exam: no breakdown Rashes: no rashes Wounds: Negative for wounds noted Psych Attitude: No agitated Activity / Motor Behavior: Negative for restless Thought Content: delusion(s) Delusional Thought Content Details: Positive for other (tells me that she did a lot of walking yesterday all around the hospital with the nurses yesterday. Yesterday was Tuesday and she had no therapy. ) Assessment & Plan Assessment/Plan (1) Accidental fall: QUALIFIERS: Encounter type: subsequent encounter Qualified Code(s): W19.XXXD - Unspecified fall, subsequent encounter (2) Physical debility: (3) Closed fracture of pubic ramus: QUALIFIERS: Encounter type: subsequent encounter Laterality: left PLAN: L superior and inferior. (4) Cognitive dysfunction: (5) Hypertension: QUALIFIERS: Hypertension type: primary hypertension Qualified Code(s): I10 - Essential (primary) hypertension (6) Dory: (7) UTI (urinary tract infection): QUALIFIERS: Urinary tract infection type: acute cystitis Hematuria presence: without hematuria Qualified Code(s): N30.00 - Acute cystitis without hematuria (8) Delirium: PLAN: Resolved. PLAN: Plan 1. Continue therapy 2. CBC and CMP in the AM 3. EKG today -monitor routine QT interval and patient on Seroquel 50 mg twice daily 4. Increase Depakote to 250 mg 3 times daily 5. Increase gabapentin to 100 mg 3 times daily 6. Continue tramadol scheduled 50 mg every 8 hours 7. Plan DC on Tuesday to a SNF. Charges/Coding Visit Charges Inpatient E&M: 74539 Subs Hosp L2
--- NOTE | 2023-04-04 17:16 | EKG12_ITS ---
Test Reason : MEDS Blood Pressure : / mmHG Vent. Rate : 075 BPM Atrial Rate : 075 BPM P-R Int : 178 ms QRS Dur : 072 ms QT Int : 348 ms P-R-T Axes : 048 011 044 degrees QTc Int : 388 ms Normal sinus rhythm Normal ECG When compared with ECG of 30-MAR-2023 07:40, No significant change was found Confirmed by ANASTASIYA LANDAVERDE, JOSSUE ([id number]), supervising editor trailer MARYSOL IZAGUIRRE ([id number]) on 04/06/2023 10:47:42 AM Referred By: FLORINA Confirmed By:JOSSUE LANGFORD MD
[2023-04-04 21:58] VITALS: BP 138/63; PULSE 92; RESP 16; TEMP 36.8; O2SAT 97
[2023-04-04 22:20] VITALS: BP 156/80; PULSE 79
[2023-04-04 22:21] VITALS: BP 156/80; PULSE 79
[2023-04-04] MEDS: Doxazosin 1 MG Tablet PO (22:21)
[2023-04-04] MEDS: Methocarbamol 500 MG Tablet PO (22:21)
[2023-04-04] MEDS: Metoprolol(XL)Succ 100 MG Tablet PO (22:21)
[2023-04-05 05:27] LABS: Hematocrit 36.6 % (37-47); Hemoglobin 11.9 g/dL (12.0-15.0); Mean Corp Hgb Conc 32.5 g/dL (32-36); Mean Corpuscular Hgb 30.9 pg (27.0-32.0); Mean Corpuscular Volume 95.1 fL (81-99); Mean Platelet Vol. 9.3 fl (6.2-12.0); Platelet Count 138 K/mm3 (150-450); RBC Distribution Width CV 12.5 % (11.6-14.6); RBC Distribution Width SD 43.4 fl (35.1-43.9); Red Blood Count 3.85 M/mm3 (4.2-5.4); White Blood Count 4.6 K/mm3 (4.4-11.0)
[2023-04-05 05:52] LABS: ALB/GLOB Ratio 0.8 RATIO (0.9-2.4); AST(SGOT) 20 U/L (15-37); Alanine Aminotransfer ALT/SGPT 23 U/L (13-56); Albumin, Serum 2.9 g/dL (3.2-5.0); Alkaline Phosphatase 157 U/L (45-117); Anion Gap 2 (5-15); BUN 12 mg/dL (7-18); BUN/Creat Ratio 22.1 RATIO (10-20); Calcium,Total 8.8 mg/dL (8.5-10.1); Chloride 105 mmol/L (98-107); Creatinine, Serum 0.54 mg/dL (0.55-1.02); EST Glomerular Filtration Rate 114 mL/min (>60); Est Glom Filt Rate - Afr Amer 138 mL/min (>60); Estimated Creatinine Clearance 35.88 ml/min; Globulin 3.6 g/dL (2.2-4.2); Glucose 110 mg/dL (74-106); Potassium 3.9 mmol/L (3.5-5.1); Protein, Total 6.5 g/dL (6.4-8.2); Sodium Level 140 mmol/L (136-145)
[2023-04-05 06:00] VITALS: BMI 24.1
[2023-04-05] MEDS: Enoxaparin 40 MG/0.4 ML Syringe SC (06:40)
[2023-04-05] MEDS: Acetaminophen 500 MG Tablet 1000 MG PO ×3 (06:40→20:30)
[2023-04-05] MEDS: traMADol 50 MG Tablet PO ×3 (06:41→20:31)
[2023-04-05 07:40] VITALS: BP 161/88; PULSE 83; RESP 16; TEMP 36.8; O2SAT 95
[2023-04-05] MEDS: Aspirin 81 MG TAB.CHEW PO (08:16)
[2023-04-05] MEDS: QUEtiapine 25 MG Tablet 50 MG PO ×2 (08:16→20:30)
[2023-04-05] MEDS: Lisinopril 20 MG Tablet PO ×2 (08:16→20:31)
[2023-04-05] MEDS: Divalproex Sodium 250 MG Tablet PO ×3 (08:16→16:59)
[2023-04-05] MEDS: Cholecalciferol (Vit D3) 125 MCG CAPSULE (5,000 UNITS) PO (08:16)
[2023-04-05] MEDS: Calcitonin-Salmon 1 SPRAY SPRAY NARES (08:17)
[2023-04-05] MEDS: Gabapentin 100 MG Capsule PO ×3 (08:18→16:59)
--- NOTE | 2023-04-05 09:20 | CASEMGMT ---
Addendum entered by Cecy Morillo 04/06/23 15:14: 7000 completed and sent to [facility] Addendum entered by Cecy Morillo 04/05/23 12:39: SW phoned dtr to update [facility] can accept, [facility], [facility] does not have beds, and [facility] denied. Reviewed [facility] and [facility] can accept. Dtr's preference is [facility]. SW confirmed with [facility] and updated [facility]. 7000 to be completed. Dtr to transport. Plan: DC 04/07 to [facility], skilled Original Note: Social Work SW phoned dtr to follow up on SNF choices. Dtr requested referrals to [facility], [facility], [facility], [facility]. Referrals made via [facility]. Will continue to follow. RADHA Dent
[2023-04-05 19:49] VITALS: BP 156/76; PULSE 87; RESP 16; TEMP 36.1; O2SAT 96
[2023-04-05] MEDS: Doxazosin 1 MG Tablet PO (20:29)
[2023-04-05 20:30] VITALS: PULSE 87
[2023-04-05] MEDS: Metoprolol(XL)Succ 100 MG Tablet PO (20:30)
[2023-04-05] MEDS: Methocarbamol 500 MG Tablet PO (20:30)
[2023-04-06] MEDS: Enoxaparin 40 MG/0.4 ML Syringe SC (05:11)
[2023-04-06] MEDS: traMADol 50 MG Tablet PO (05:12)
[2023-04-06] MEDS: Acetaminophen 500 MG Tablet 1000 MG PO ×3 (05:12→21:02)
[2023-04-06 05:27] VITALS: BMI 23.9
[2023-04-06 05:49] LABS: Valproic Acid (Depakene) Level 28 ug/mL (50-100)
[2023-04-06] MEDS: Lisinopril 20 MG Tablet PO ×2 (07:59→21:03)
[2023-04-06] MEDS: Aspirin 81 MG TAB.CHEW PO (07:59)
[2023-04-06] MEDS: Cholecalciferol (Vit D3) 125 MCG CAPSULE (5,000 UNITS) PO (07:59)
[2023-04-06] MEDS: QUEtiapine 25 MG Tablet 50 MG PO ×2 (08:00→21:03)
[2023-04-06] MEDS: Gabapentin 100 MG Capsule PO ×2 (08:00→16:41)
[2023-04-06] MEDS: Divalproex Sodium 250 MG Tablet PO (08:00)
[2023-04-06 08:46] VITALS: BP 162/70; PULSE 67; RESP 14; TEMP 36.4; O2SAT 96
--- NOTE | 2023-04-06 09:01 | PN_ITS ---
Subjective Subjective Afebrile VSS-systolic blood pressure has been increased the past few days and I suspect this is due to increased confusion with increased flight of ideas. She can not stay on topic in conversation and can not answer a direct question without rambling. She has also been more tired. Not doing well with therapy. this seemed to happen when the Gabapentin was increased for her c/o L groin pain. Maintaining appropriate oxygen saturation on RA Oral intake is fair to good depending on the day. Discussed with nursing - Increased difficulty with walking Reviewed the PT/OT/ST notes Medication list reviewed. All lab from today was personally reviewed. Ammonia is very mildly increased at 33. Highest normal is 32. Valproic acid level is 28 which is low but, it is not being used for seizures.....it is being used for dory/BPD. LFTs on 04/05/2023 were normal with the exception of a mildly increased alkaline phosphatase at 157 which is likely related to the acute left pelvic fractures. ROS is very limited today due to the change in mental status. She does not appear to be in any distress. She denies burning with urination. Has not had a fever. Objective Data Objective Data Vital Signs: Vital Signs Temp Pulse Resp BP Pulse Ox O2 Del Method 97.5 F L 67 14 162/70 H 96 Room Air 04/06/23 08:46 04/06/23 08:46 04/06/23 08:46 04/06/23 08:46 04/06/23 08:46 04/06/23 08:46 Oxygen Delivery Method Room Air Weight: 135 lb 2.294 oz Body Mass Index (BMI) 23.9 Intake & Output: Intake and Output for Last 24 Hours 04/04/23 04/05/23 04/06/23 23:59 23:59 23:59 Intake Total 350 / 350 150 / 150 Output Total 300 / 300 Balance 50 / 50 150 / 150 Lab / Micro Data 04/05/23 05:07 04/05/23 05:07 Labs: Laboratory Results - last 24 hr 04/06/23 05:14: Ammonia 33.0 H, Valproic Acid 28 L Micro: Microbiology 03/28/23 04:00 Urine, Catheterized Urine Culture - Final Escherichia coli Physical Exam Const alert Constitutional Narrative: More sleepy the past 2 days. Unable to follow cues with ST and memory is poor. She was able to stand for 8 minutes with OT today for 1-2 handed tasks. Needs visual and voice cues. Not focusing on tasks at hand and losing balance with PT yesterday. Did the Nu-step yesterday for 10 minutes. Not making sense today. Many non sequiturs. HEENT moist oral mucous membranes Eyes PERRL and EOMs intact bilaterally Neck supple Resp normal respiratory effort and clear to auscultation bilaterally Resp Narrative: No conversational dyspnea. Effort and Inspection: Negative for tachypneic, labored or uses accessory muscles Cardio regular rate, regular rhythm and no gallops GI normal to inspection, nondistended, normoactive bowel sounds, soft to palpation and non-tender Extremity Extremity Narrative: Says she has pain all over today. No reaction with squeezing the calves and she has no swelling. Skin General Skin Exam: no breakdown Rashes: no rashes Wounds: Negative for wounds noted Neuro CN's II-XII intact bilaterally Psych Psych Narrative: Confused, flight of ideas, not focusing on tasks and not able to respond to visual and voice cues with ST today. Does not appear to be in any distress. Seems angry and frustrated today. ?Has not been setting off the alarms today. Not restless. Assessment & Plan Assessment/Plan (1) Accidental fall: QUALIFIERS: Encounter type: subsequent encounter Qualified Code(s): W19.XXXD - Unspecified fall, subsequent encounter (2) Physical debility: (3) Closed fracture of pubic ramus: QUALIFIERS: Encounter type: subsequent encounter Laterality: left Fracture healing: with routine healing Qualified Code(s): S32.592D - Other specified fracture of left pubis, subsequent encounter for fracture with routine healing (4) Cognitive dysfunction: (5) Hypertension: QUALIFIERS: Hypertension type: primary hypertension Qualified Code(s): I10 - Essential (primary) hypertension (6) Dory: (7) UTI (urinary tract infection): QUALIFIERS: Urinary tract infection type: acute cystitis Hematuria presence: without hematuria Qualified Code(s): N30.00 - Acute cystitis without hematuria PLAN: She has increased confusion and flight of ideas the past 2 days. Has no urinary complaints but, this is what happened the last time she had a UTI. (8) Delirium: (9) Hyperammonemia: PLAN: Very mildly elevated. More likely than not related to Depakote. I doubt this is causing the confusion the past 2 days but, will DC Depakote and start Trazodone. this was discussed with psychiatry the last we talked. PLAN: Plan 1. Plan DC tomorrow to [facility] 2. DC the depakote 3. Start Trazodone 50 mg BID . Discussed with psychiatry. 4. Take the Gabapentin down to 100 mg BID again - she is on this for suspected radicular pain in the R flank/RLQ of the abd and she denies this pain at present.....it has been a chronic complaint in the past. 5. Continue the Seroquel at the present dose. 6. Jennifer really needs to see a psychiatrist to manage the medications. This has been her main problem since she arrived on rehab. Therapy has been hindered by her behaviors and she has not progressed well. Until she is stable on medication for dory I do not see her getting rehabilitated from the pelvic fractures. 7. Check a UA today.......to r/o recurrent UTI as etiology of the change in the past 2 days. I am at the limits of my abilities to care for Jennifer's mental/psychiatric problems and feel she would be best served going to a facility where she could be managed by psychiatry. She was very good last and through the weekend. She was good on Tuesday except she had flight of ideas/difficulty staying on topic however, the past 2 days she has been very confused with flight of ideas and inability to follow instruction and attend to what she is doing. Will notify the director of the [facility] that she will need to see psychiatry as soon as possible. Charges/Coding Visit Charges Inpatient E&M: 52007 Subs Hosp L2
[2023-04-06 10:50] LABS: Mucous, Urine 0 SEEN /hpf (<or=2+)
--- NOTE | 2023-04-06 11:01 | PCM.TXEXTCAR ---
Diet Diet Order/Speech Therapy: 03/23/23 16:02 Diet: Cardiac - Heart Healthy Is pt able to select menu?: Yes Routine Orders/Code Status Enema Type: Fleetz Enema Frequency: Daily PRN Suppository Type: Dulcolax 10mg Suppository Frequency: Daily PRN O2 Liters per Minute: 1-2 O2 Frequency: PRN Keep PO Greater than or Equal to (%): 90 Routine Lab Work: CBC (04/12/23) and - (CMP on 04/12/23 ) Code Status: Full Code Therapies Weight Bearing: Toe-touch weight bearing (On the Left leg for Left inferior and superior pubic rami fractures. ) Extremity Affected:: Left Lower Physical Therapy: Eval and Treat Occupational Therapy: Eval and Treat Speech Therapy: Eval and Treat Problem/Diagnosis (1) Accidental fall: Status: Acute Code(s): W19.XXXA - Unspecified fall, initial encounter Comment: From ground level on uneven surface and laid outside for 6 hours prior to her family finding her. It was the second fall she had that week while walking outside on a hill. (2) Physical debility: Status: Acute Code(s): R53.81 - Other malaise Comment: Due to fracture of the left inferior and superior pubic rami. (3) Closed fracture of pubic ramus: Status: Acute Code(s): S32.599A - Other specified fracture of unspecified pubis, initial encounter for closed fracture Comment: Superior and inferior on the left. (4) Cognitive dysfunction: Status: Acute Code(s): F09 - Unspecified mental disorder due to known physiological condition Comment: This is multifactorial. 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 She was very manic at admission but, this improved overtime and I suspected it was due to anxiety over all that had happened to her in the past 2 months. She was placed on Buspar by Dr. Hercules as an OP. Then she fell and broke her pelvis. The igor was much worse at the second admission to acute rehab. She was started on Seroquel and later Depakote was added. Ammonia increased on Depakote and it was discontinued and she remained on Seroquel 50 BID and Trazodone 50 mg BID was started on the advice of psychiatry. (5) Hypertension: Status: Chronic Code(s): I10 - Essential (primary) hypertension (6) Igor: Status: Acute Code(s): F30.9 - Manic episode, unspecified Comment: I suspect she has BPD. She has always talked excessively and trouble staying on topic. Her mother was the same way per Jennifer's dtr Vilma. There are other family members with the same problems. I think the increased stress recently has exacerbated underlying BPD which has previously been untreated. (7) UTI (urinary tract infection): Status: Acute Code(s): N39.0 - Urinary tract infection, site not specified (8) Delirium: Status: Acute Code(s): R41.0 - Disorientation, unspecified Comment: The igor was coming under control and then suddenly things got worse. A UA was + for infection and the culture grew a baron-sensitive E. Coli. she received 3 days of IV Rocephin and 5 days of Duricef. The delirium resolved. (9) Hyperammonemia: Status: Acute Code(s): E72.20 - Disorder of urea cycle metabolism, unspecified Plan: Very mildly elevated. More likely than not related to Depakote. I doubt this is causing the confusion the past 2 days but, will DC Depakote and start Trazodone. This was discussed with psychiatry the last we talked. (10) Thrombocytopenia: Status: Acute Code(s): D69.6 - Thrombocytopenia, unspecified Comment: Mild - may be due to Depakote which has been discontinued. Recheck in 1 week. Plan 1. Plan DC tomorrow to [facility] 2. DC the depakote 3. Start Trazodone 50 mg BID . Discussed with psychiatry. 4. Take the Gabapentin down to 100 mg BID again - she is on this for suspected radicular pain in the R flank/RLQ of the abd and she denies this pain at present.....it has been a chronic complaint in the past. 5. Continue the Seroquel at the present dose. 6. Jennifer really needs to see a psychiatrist to manage the medications. This has been her main problem since she arrived on rehab. Therapy has been hindered by her behaviors and she has not progressed well. Until she is stable on medication for igor I do not see her getting rehabilitated from the pelvic fractures. 7. UA + for pyuria and bacteria (straight cath) on 04/06/23. Urine culture was sent and is pending at the time of DC. The last UTI and the one prior was due to E. Coli and it was baron sensitive. Augmentin 500 mg BID prescribed and will tx for 10 days. Lactobacillus ordered BID. She has uterine prolapse and I think this likely contributes to UTI's. She will need to follow up with urology........would get an appt with Dr. Hartley. I am at the limits of my abilities to care for Jennifer's mental/psychiatric problems and feel she would be best served going to a facility where she could be managed by psychiatry. She was very good last and through the weekend. She was good on Tuesday except she had flight of ideas/difficulty staying on topic however, the past 2 days she has been very confused with flight of ideas and inability to follow instruction and attend to what she is doing. Will notify the director of the [facility] that she will need to see psychiatry as soon as possible. Allergies/Procedures Done in Hospital Allergies amlodipine Adverse Reaction (Intermediate, Verified 03/21/23 00:02) Other Lower extremity edema Procedures: None Type of Care/Length of Stay Estimated LOS: Convalescent Care Less Than 30 days Type of Care Needed: Skilled Rehab Potential: Good Prognosis: Fair Additional Orders/Day of Discharge Additional Orders: Jennifer is very private about toileting. If at all possible would avoid having a male NA take her to the BR or change her. Day of Discharge: 04/07/23 Dietary and Speech Recommendations Dietitian Recommendations/Changes: Will change diet to Cardiac to manage medical conditions. Follow Up Care Please follow up with your Primary Care Physician in: Dr. Hercules. Following discharge from SNF. Please Follow Up With: Leonidas Rucker DO When: In 1 month for pelvic fractures. Please Follow Up With: Psychiatry When: SUSAN Please Follow Up With: Milly Hartley MD When: uterine prolapse with frequent UTI's Please Follow Up With: Angelica Rojas MD When: as previously arranged for neuroendocrine tumor with pulmonary nodule. Discharge Plan Admission Admit Date/Time: 03/22/23 14:30 Primary Reason for Your Visit: Debility due to Left pelvic fractures. Attending Provider: Yanet Cabral Primary Care Provider: Isai Hercules Discharge Orders/Prescriptions Prescriptions: New bisacodyl 10 mg Suppository 10 mg VT .PRN X 1 PRN (Reason: Constipation) Qty: 1 0RF quetiapine 25 mg Tablet 50 mg PO BID Qty: 1 0RF doxazosin 1 mg Tablet 1 mg PO QHS Qty: 1 0RF sennosides-docusate sodium [Stool Softener-Stimulant Laxat] 8.6-50 mg Tablet 2 tab PO BID PRN (Reason: Constipation) Qty: 1 0RF calcitonin (salmon) 200 unit/actuation [place],Non-Aerosol 1 spray NARES DAILY Qty: 1 0RF trazodone 50 mg Tablet 50 mg PO BID Qty: 1 0RF cholecalciferol (vitamin D3) 125 mcg (5,000 unit) Capsule 125 mcg PO DAILY Qty: 1 0RF oxycodone 5 mg tablet 5 mg PO Q6H PRN (Reason: pain) 7 Days Qty: 28 0RF amoxicillin-pot clavulanate [Augmentin] 500-125 mg tablet 1 tab PO BID Qty: 20 0RF Lactobacillus acidophilus Capsule 10 mg PO BID Qty: 20 0RF Continued lisinopril 20 mg tablet 20 mg PO BID Patient Comments: TAKE 1 TABLET BY MOUTH TWICE A DAY aspirin [Aspirin Childrens] 81 mg tablet,chewable 81 mg PO DAILY Patient Comments: once a day methocarbamol 500 mg tablet 500 mg PO QHS metoprolol succinate 100 mg tablet extended release 24 hr 100 mg PO QHS acetaminophen 500 mg tablet 1,000 mg PO Q8H gabapentin 100 mg capsule 100 mg PO BID Discontinued buspirone 5 mg tablet 5 mg PO BID tramadol 50 mg tablet 50 mg PO Q8H Referrals / Follow Up: Isai Hercules MD [Primary Care Provider] - Disposition Disposition (needs filled in before D/C Order can be placed): Nursing Home Facility (1) Accidental fall Qualifiers: Encounter type: subsequent encounter Qualified Code(s): W19.XXXD - Unspecified fall, subsequent encounter (3) Closed fracture of pubic ramus Qualifiers: Encounter type: subsequent encounter Laterality: left Fracture healing: with routine healing Qualified Code(s): S32.592D - Other specified fracture of left pubis, subsequent encounter for fracture with routine healing (5) Hypertension Qualifiers: Hypertension type: primary hypertension Qualified Code(s): I10 - Essential (primary) hypertension (7) UTI (urinary tract infection) Qualifiers: Urinary tract infection type: acute cystitis Hematuria presence: without hematuria Qualified Code(s): N30.00 - Acute cystitis without hematuria
[2023-04-06 11:24] LABS: Color, Urine Yellow (Yellow); Glucose, Dipstick Normal (Normal); Ketone-Dipstick Negative (Negative); Leukocyte Esterase-Dipstick 100 /ul (Negative); Nitrite-Dipstick Negative (Negative); Occult Blood-Urine 10 /ul (Negative); Protein-Dipstick 15 mg/dl (Negative); Urine Bilirubin Dipstick Negative (Negative); Urine Clarity Sl. Cloudy (Clear); Urine Urobilinogen Normal (Normal)
[2023-04-06 11:34] LABS: Bacteria 1+ /hpf (None Seen); Red Blood Cells-Urine 0-5 SEEN /hpf (0-5); Squamous Epithelial Cells - UA 0-5 SEEN /hpf (5-10); White Blood Cells 10-25 SEEN /hpf (0-5)
--- NOTE | 2023-04-06 12:05 | PCM.DC.SUM ---
Providers Date of Admission: 03/22/23 Date of Discharge: 04/07/23 Primary Care Physician: Dr. Isai Hercules MD none Reason For Visit: LEFT PELVIC FRACTURE Diagnosis Discharge Diagnosis (1) Accidental fall: Status: Acute Code(s): W19.XXXA - Unspecified fall, initial encounter Qualifiers: Encounter type: subsequent encounter Qualified Code(s): W19.XXXD - Unspecified fall, subsequent encounter Plan: From ground level on uneven surface and laid outside for 6 hours prior to her family finding her. It was the second fall she had that week while walking outside on a hill. (2) Physical debility: Status: Acute Code(s): R53.81 - Other malaise (3) Closed fracture of pubic ramus: Status: Acute Code(s): S32.599A - Other specified fracture of unspecified pubis, initial encounter for closed fracture Qualifiers: Encounter type: subsequent encounter Fracture healing: with routine healing Laterality: left Qualified Code(s): S32.592D - Other specified fracture of left pubis, subsequent encounter for fracture with routine healing Plan: Left superior and inferior pubic rami (4) Cognitive dysfunction: Status: Acute Code(s): F09 - Unspecified mental disorder due to known physiological condition Plan: This is multifactorial. 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 She was very manic at admission but, this improved overtime and I suspected it was due to anxiety over all that had happened to her in the past 2 months. She was placed on Buspar by Dr. Hercules as an OP. Then she fell and broke her pelvis. The igor was much worse at the second admission to acute rehab. She was started on Seroquel and later Depakote was added. Ammonia increased on Depakote and it was discontinued and she remained on Seroquel 50 BID and Trazodone 50 mg BID was started on the advice of psychiatry. (5) Hypertension: Status: Chronic Code(s): I10 - Essential (primary) hypertension Qualifiers: Hypertension type: primary hypertension Qualified Code(s): I10 - Essential (primary) hypertension (6) Igor: Status: Acute Code(s): F30.9 - Manic episode, unspecified Plan: I suspect she has BPD. She has always talked excessively and trouble staying on topic. Her mother was the same way per Jennifer's dtr Vilma. There are other family members with the same problems. I think the increased stress recently has exacerbated underlying BPD which has previously been untreated. (7) UTI (urinary tract infection): Status: Acute Code(s): N39.0 - Urinary tract infection, site not specified Qualifiers: Hematuria presence: without hematuria Urinary tract infection type: acute cystitis Qualified Code(s): N30.00 - Acute cystitis without hematuria Plan: Frequent UTI's. More likely than not related to prolapsed uterus. She grew E. Coli which was pansensitive the first UTI she had in acute rehab and she was treated with 3 days of IV Rocephin and 4-5 days of Duricef. On 04/06/23 she had a straight cath for delirium and the UA was + for pyuria and bacteria. culture was sent and will be pending at [place]. Please call for the results on 04/08/23. She is being discharged on Augmentin 500 mg BID for 10 days and Lactobacillus. (8) Delirium: Status: Acute Code(s): R41.0 - Disorientation, unspecified Plan: Due to UTI. (9) Hyperammonemia: Status: Acute Code(s): E72.20 - Disorder of urea cycle metabolism, unspecified Plan: Very mildly elevated. More likely than not related to Depakote. I doubt this is causing the confusion the past 2 days but, will DC Depakote and start Trazodone. This was discussed with psychiatry the last we talked. I believe the UTI is causing delirium. (10) Thrombocytopenia: Status: Acute Code(s): D69.6 - Thrombocytopenia, unspecified Plan: Possibly due to Depakote which has been discontinued. Plan 1. Plan DC tomorrow to [facility] 2. DC the depakote 3. Start Trazodone 50 mg BID . Discussed with psychiatry. 4. Take the Gabapentin down to 100 mg BID again - she is on this for suspected radicular pain in the R flank/RLQ of the abd and she denies this pain at present.....it has been a chronic complaint in the past. 5. Continue the Seroquel at the present dose. 6. Jennifer really needs to see a psychiatrist to manage the medications. This has been her main problem since she arrived on rehab. Therapy has been hindered by her behaviors and she has not progressed well. Until she is stable on medication for igor I do not see her getting rehabilitated from the pelvic fractures. 7. UA + for pyuria and bacteria (straight cath) on 04/06/23. Urine culture was sent and is pending at the time of DC. The last UTI and the one prior was due to E. Coli and it was baron sensitive. Augmentin 500 mg BID prescribed and will tx for 10 days. Lactobacillus ordered BID. She has uterine prolapse and I think this likely contributes to UTI's. She will need to follow up with urology........would get an appt with Dr. Hartley. I am at the limits of my abilities to care for Jennifer's mental/psychiatric problems and feel she would be best served going to a facility where she could be managed by psychiatry. She was very good last and through the weekend. She was good on Tuesday except she had flight of ideas/difficulty staying on topic however, the past 2 days she has been very confused with flight of ideas and inability to follow instruction and attend to what she is doing. Will notify the director of the [place] that she will need to see psychiatry as soon as possible. Medications at Discharge Home Medications aspirin 81 mg chewable tablet (Aspirin Childrens) 81 mg PO DAILY heart health 11/27/22 lisinopril 20 mg tablet 20 mg PO BID blood pressure 11/27/22 methocarbamol 500 mg tablet 500 mg PO QHS muscle spasm 03/21/23 metoprolol succinate 100 mg tablet,extended release 24 hr 100 mg PO QHS BP 03/21/23 acetaminophen 500 mg tablet 1,000 mg PO Q8H pain 03/22/23 gabapentin 100 mg capsule 100 mg PO BID pain 03/22/23 Lactobacillus acidophilus 10 mg PO BID #20 caps 04/06/23 amoxicillin 500 mg-potassium clavulanate 125 mg tablet (Augmentin) 1 tab PO BID #20 tabs 04/06/23 bisacodyl 10 mg rectal suppository 10 mg [place] .PRN X 1 PRN Constipation #1 ea 04/06/23 calcitonin (salmon) 200 unit/actuation nasal spray 1 spray NARES DAILY #1 mL 04/06/23 cholecalciferol (vitamin D3) 125 mcg (5,000 unit) capsule 125 mcg PO DAILY #1 cap 04/06/23 doxazosin 1 mg tablet 1 mg PO QHS #1 TAB 04/06/23 oxycodone 5 mg tablet 5 mg PO Q6H PRN pain 7 days #28 tabs 04/06/23 quetiapine 25 mg tablet 50 mg (2 x 25 mg) PO BID #1 TAB 04/06/23 sennosides 8.6 mg-docusate sodium 50 mg tablet (Stool Softener-Stimulant Laxative) 2 tab PO BID PRN Constipation #1 TAB 04/06/23 trazodone 50 mg tablet 50 mg PO BID #1 TAB 04/06/23 Hospital Course Operations None Procedures None Summary of Care Provided Minutes Spent on Discharge: 50 Hospital Course: EDWIN ERAZO, is a 82 F with a 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 She presented to the emergency department at [facility] on 03/21/2023 after a fall in the yard at home. She laid in the yard for 6 hours before someone found her and this was very traumatic for her. X-rays in the emergency department revealed a left inferior pubic ramus deformity and possibly a superior left pubic deformity, both were age-indeterminate. She complained of chest pain and a CT chest was done and revealed multiple small noncalcified nodules with large left upper lobe calcified nodule, a 2 mm right middle lobe nodule (new since December 17, 2022), and a medial left lower lobe 4 mm nodule which is slightly increased in size from December 17, 2022. There were no rub fractures. CT scan of the cervical spine showed no evidence of acute cervical spinal fracture, spondylolisthesis or displacement. There was mild spondylosis present. CT brain showed no evidence of acute intracranial hemorrhage or injury. She could not ambulate and she was admitted to the hospitalist service. PT/OT recommended acute inpt rehab and Jennifer was transferred to the rehab unit on 03/22/23 for 3 hours of therapy daily to restore independence/function at or near her level prior to the fall. At arrival to acute rehab Jennifer had acute igor. She had excessive speech, flight of ideas, insomnia, restlessness and she was not able to follow any directions. She could not listen because she talked constantly and did not pause to let anyone else speak. She was hallucinating and delusional. She had the same problem the last time she was admitted to acute rehab but, not to the same degree. I spoke with her dtr who told me Jennifer's mother was the same when they. She also told me that there were other family members with the same presentation. Jennifer is never seen a psychiatrist or had any psychotherapy. She lives by herself. She was started on Seroquel and the dose was gradually walked up to 50 mg BID. EKG showed no QT prolongation. She felt less disorganized on Seroquel and told me her mind was calmer but, she still had flight of ideas. She was sleeping better. I added Depakote to the drug regimen and she was able to follow instructions. She made good eye contact with the person speaking to her and she was quiet when someone was talking with her. She began to ambulate with therapy. After she was on the Depakote 250 mg TID for a week lab was ordered. The ammonia was mildly elevated and she had thrombocytopenia. I discontinued Depakote on 04/06/23. On 04/05 and 04/06 she was much more confused, talking nonsense and not able to walk. A Straight cath UA was ordered and was + for WBC's and bacteria. She was started on Augmentin 500 mg BID on 04/06/23. Urine culture is still pending at the time of discharge. She also had a UTI due to a baron sensitive E. Coli earlier in her stay on rehab and was treated for 3 days with IV Rocephin and 5 additional days of Cefadroxil. On the morning of DC she is calm and more appropriate. She is alert and making eye contact with me. She asked some appropriate questions. She was started on Trazodone 50 mg BID in lieu of the Depakote. She remains on Seroquel 50 mg BID. I am hopeful that she will be able to see a psychiatrist while at [facility] to manage her medications. The majority of her admission to acute rehab was spent getting the igor under control. In addition to the igor she had delirium with the UTI's. She has a hx of embolic CVA's a few months ago and also of viral encephalitis in 2017. She has chronic cognitive dysfunction due to these events. She needs additional therapy but, her mental health must be addressed before she will be able to make significant progress in therapy. Prior to DC Jennifer was independent with eating and with grooming//bathing she was standby assist. She is min assist with LB dressing. She needs minimal assistance with toilet transfer but moderate assistance with toileting/hygiene. She is also min assist for tub/shower transfer. She needs direct supervision with most activities and requires visual and verbal cues to complete tasks. Performance in therapy waxes and wanes with her mental status. On 03/31/2023 she was able to ascend/descend three 4 inch steps with 2 handrails at mod assist of 1. She was also able to ambulate 22 feet on 03/31/2023 with a front wheeled walker at contact-guard assist/min assist. Jennifer was discharged to [facility] on 04/07/2023 for additional therapy. I do not feel she is safe at home by herself and she likely needs assisted living. She will follow up with Dr. Rucker for the pelvic fractures and with Dr. Hartley for frequent UTI's and vaginal prolapse. I think the prolapse plays a part in the frequent UTI's. She will also follow up with Dr. Rojas for neuroendocrine tumors and with Dr. Hercules for primary care. She has a pulmonary nodule that is getting larger and may be another neuroendocrine tumor. This needs to be followed up on. I think she would benefit greatly from a psychiatric consult for diagnosis and management of medication. I believe she has bipolar disorder and igor develops with stressful events. It is also possible that she has PTSD from laying in her yard, in pain from pelvic fractures, for 6 hours prior to admission to the hospital. Physical Exam Const alert, no apparent distress and average body habitus HEENT normocephalic, head/scalp atraumatic and hearing grossly normal bilaterally Eyes PERRL, EOMs intact bilaterally, conjunctivae normal and no scleral icterus Eyes Narrative: No mattering of the eye lashes and no discharge from the eyes. No visual field deficits. Neck supple, no JVD, No nodes and no carotid bruits General: trachea midline Chest Chest: symmetrical chest wall rise Resp normal respiratory effort, normal air movement and clear to auscultation bilaterally Resp Narrative: No conversational dyspnea. Effort and Inspection: able to speak in complete sentences; Negative for tachypneic Cardio regular rate, regular rhythm, no murmurs, no rub and no gallops GI normal to inspection, nondistended, normoactive bowel sounds, soft to palpation and non-tender GI Narrative: No guarding with palpation of the abd and the suprapubic area. She has some pain in the Left buttock with wt bearing. No CVA tenderness. Back/Spine no CVA tenderness Extremity no calf tenderness General Extremity: Negative for edema Skin no wounds General Skin Exam: no breakdown Rashes: no rashes Neuro CN's II-XII intact bilaterally and moves all extremities Psych Psych Narrative: Making eye contact on the day of DC. She is calm and following instructions. Asked me appropriate questions. No hyperactivity/restlessness. Appearance: appropriate Weight / BMI Weight Weight: 135 lb 2.294 oz Body Mass Index (BMI) 23.9 ABG / Lab / Microbiology Data 04/05/23 05:07 04/05/23 05:07 Laboratory: Laboratory Results - last 24 hr 04/06/23 05:14: Ammonia 33.0 H, Valproic Acid 28 L 04/06/23 10:45: Urine Color Yellow, Urine Clarity Sl. Cloudy, Urine pH 6.0, Ur Specific [place] 1.020, Urine Protein 15 H, Urine Glucose (UA) Normal, Urine Ketones Negative, Urine Occult Blood 10 H, Urine Nitrite Negative, Urine Bilirubin Negative, Urine Urobilinogen Normal, Ur Leukocyte Esterase 100 H, Urine RBC 0-5 SEEN, Urine WBC 10-25 SEEN, Ur Squamous Epith Cells 0-5 SEEN, Urine Bacteria 1+, Urine Mucus 0 SEEN Microbiology: Microbiology 03/28/23 04:00 Urine, Catheterized Urine Culture - Final Escherichia coli D/C Instructions Please Follow Up With: Leonidas Rucker, DO Meaningful Use Info Meaningful Use Diagnoses (Choose all that apply): None applicable Discharge Plan Admission Admit Date/Time: 03/22/23 14:30 Primary Reason for Your Visit: Debility due to Left pelvic fractures. Attending Provider: Yanet Cabral Primary Care Provider: Isai Hercules Discharge Orders/Prescriptions Prescriptions: New bisacodyl 10 mg Suppository 10 mg WI .PRN X 1 PRN (Reason: Constipation) Qty: 1 0RF quetiapine 25 mg Tablet 50 mg PO BID Qty: 1 0RF doxazosin 1 mg Tablet 1 mg PO QHS Qty: 1 0RF sennosides-docusate sodium [Stool Softener-Stimulant Laxat] 8.6-50 mg Tablet 2 tab PO BID PRN (Reason: Constipation) Qty: 1 0RF calcitonin (salmon) 200 unit/actuation [place],Non-Aerosol 1 spray NARES DAILY Qty: 1 0RF trazodone 50 mg Tablet 50 mg PO BID Qty: 1 0RF cholecalciferol (vitamin D3) 125 mcg (5,000 unit) Capsule 125 mcg PO DAILY Qty: 1 0RF oxycodone 5 mg tablet 5 mg PO Q6H PRN (Reason: pain) 7 Days Qty: 28 0RF amoxicillin-pot clavulanate [Augmentin] 500-125 mg tablet 1 tab PO BID Qty: 20 0RF Lactobacillus acidophilus Capsule 10 mg PO BID Qty: 20 0RF Continued lisinopril 20 mg tablet 20 mg PO BID Patient Comments: TAKE 1 TABLET BY MOUTH TWICE A DAY aspirin [Aspirin Childrens] 81 mg tablet,chewable 81 mg PO DAILY Patient Comments: once a day methocarbamol 500 mg tablet 500 mg PO QHS metoprolol succinate 100 mg tablet extended release 24 hr 100 mg PO QHS acetaminophen 500 mg tablet 1,000 mg PO Q8H gabapentin 100 mg capsule 100 mg PO BID Discontinued buspirone 5 mg tablet 5 mg PO BID tramadol 50 mg tablet 50 mg PO Q8H Referrals / Follow Up: Isai Hercules MD [Primary Care Provider] - Disposition Disposition (needs filled in before D/C Order can be placed): Care Home Facility Charges/Coding Visit Charges Inpatient E&M: 73290 Disch Hosp >30min
[2023-04-06] MEDS: Amox/Clavulanate 500 MG Tablet PO ×2 (12:12→16:42)
[2023-04-06] MEDS: oxyCODONE 5 MG Tablet PO ×2 (12:12→21:03)
[2023-04-06 18:50] VITALS: BP 130/67; PULSE 82; RESP 16; TEMP 36.6; O2SAT 95
[2023-04-06] MEDS: Methocarbamol 500 MG Tablet PO (21:02)
[2023-04-06 21:03] VITALS: BP 130/67; PULSE 82
[2023-04-06] MEDS: Metoprolol(XL)Succ 100 MG Tablet PO (21:03)
[2023-04-06] MEDS: Doxazosin 1 MG Tablet PO (21:03)
[2023-04-07 06:00] VITALS: BMI 24.7
[2023-04-07] MEDS: Enoxaparin 40 MG/0.4 ML Syringe SC (07:01)
[2023-04-07] MEDS: oxyCODONE 5 MG Tablet PO (07:01)
[2023-04-07] MEDS: Acetaminophen 500 MG Tablet 1000 MG PO (07:01)
[2023-04-07] MEDS: QUEtiapine 25 MG Tablet 50 MG PO (07:49)
[2023-04-07] MEDS: Aspirin 81 MG TAB.CHEW PO (07:49)
[2023-04-07] MEDS: Amox/Clavulanate 500 MG Tablet PO (07:49)
[2023-04-07] MEDS: Lisinopril 20 MG Tablet PO (07:49)
[2023-04-07] MEDS: Cholecalciferol (Vit D3) 125 MCG CAPSULE (5,000 UNITS) PO (07:49)
[2023-04-07] MEDS: Gabapentin 100 MG Capsule PO (07:49)
[2023-04-07] MEDS: traZODone 50 MG Tablet PO (07:49)
[2023-04-07 08:00] VITALS: BP 137/68; PULSE 87; RESP 19; TEMP 36.6; O2SAT 96
--- NOTE | 2023-04-07 11:00 | NURSING ---
Family here and transporting patient to [facility] and report given to the nurse.
== END 2023-04-07 11:05 | disposition skilled nursing facility (03) | DRG 536 ==
PROVIDERS: Admitting Provider Internal Medicine; PCP Family Medicine; Visit Provider Internal Medicine
DX: S32.82XA Multiple fractures of pelvis without disruption of pelvic ring, initial encounter for closed fracture (principal); C7A.8 Other malignant neuroendocrine tumors; N30.00 Acute cystitis without hematuria; D69.6 Thrombocytopenia, unspecified; E11.9 Type 2 diabetes mellitus without complications; E78.5 Hyperlipidemia, unspecified; B96.20 Unspecified Escherichia coli [E. coli] as the cause of diseases classified elsewhere; F31.9 Bipolar disorder, unspecified; I10 Essential (primary) hypertension; J45.909 Unspecified asthma, uncomplicated; F41.9 Anxiety disorder, unspecified; W19.XXXA Unspecified fall, initial encounter; R26.2 Difficulty in walking, not elsewhere classified; F09 Unspecified mental disorder due to known physiological condition; G47.00 Insomnia, unspecified; Z79.82 Long term (current) use of aspirin; Z79.899 Other long term (current) drug therapy; R91.8 Other nonspecific abnormal finding of lung field; Y93.H2 Activity, gardening and landscaping; Y92.007 Garden or yard of unspecified non-institutional (private) residence as the place of occurrence of the external cause
CPT/HCPCS: 36415; 70450; 71250; 72125; 73502; 80048; 80053; 80164; 81001; 82140; 82533; 82550; 83735; 84100; 85014; 85018; 85025; 85027; 87077; 87086; 87088; 87186; 92507; 92523; 93005; 94668; 96361; 96372; 96374; 96375; 97110; 97112; 97116; 97129; 97130; 97162; 97166; 97530; 97535; 97802; 99221; 99285; J7030; J7050; A4216; G0378; J0696; J2405

== ENCOUNTER → 2023-04-22 | Outpatient (CLI) | payer MEDICARE, OTHER, SELFPAY ==
--- NOTE | 2023-04-22 15:45 | CT_ITS ---
STUDY: CT CHEST, ABDOMEN T PELVIS WITH CONTRAST REASON FOR EXAM: Female, 83 years [address] NEUROENDOCRINE TUMOR PROTOCOL RADIATION DOSAGE (If Supplied By Facility): CTDIvol = ( 14.17 ) mGy, DLP = ( 2485.27 ) mGycm TECHNIQUE: Transaxial imaging was performed following intravenous administration of Oral and amp; IV Readi-CAT and amp; 100mL Isovue-300. Individualized dose optimization techniques were used for this CT. COMPARISON: 12/17/2022 CT chest abdomen and pelvis FINDINGS: CHEST Calcified 4 mm granuloma overlies the left upper lobe posterior segment. There is no demonstrated pleural abnormality. Normal heart and pericardium. Similar mild subcentimeter nodes within the paratracheal mediastinum are present and less conspicuous compared to prior exam. Normal hilar regions. Normal unenhanced pulmonary arteries. Normal aorta arch and descending thoracic aorta. Normal osseous structures. There is no demonstrated abnormality of the visualized upper abdomen. ABDOMEN The visualized lung bases are unremarkable. The visualized portions of the heart are within normal limits. Normal liver. Cholecystectomy clips. Normal spleen. Normal pancreas. Normal bilateral adrenal glands. Normal right kidney. Normal left kidney. Normal visualized stomach. Normal small intestine. Normal colon. Postsurgical changes overlie the right lower quadrant with with no evidence of enhancing lesions or lymphadenopathy within the right lower quadrant as seen on prior exam consistent with likely surgical removal. No evidence of new appreciated enhancing small bowel lesion. Normal abdominal aorta. Normal inferior vena cava. Stable mild periaortic subcentimeter nodes are present present the level of the renal vessels compared to prior. Normal abdominal wall. There is interval fracture of the left inferior pubic ramus with acute versus subacute fracture not excluded, clinically correlate. PELVIS Normal urinary bladder. Normal visualized small intestine. Normal visualized colon. There is no pelvic fluid. There is no pelvic lymphadenopathy or mass lesion. Normal visualized pelvic arteries. Normal abdominal wall. Normal osseous structures. CT/CT Chest, Abd, Pel w/Contrast IMPRESSION: 1. Postsurgical changes with right lower quadrant with no evidence of residual enhancing lesions seen on prior exam with resolved lymphadenopathy consistent with no evidence of recurrent disease. Recommend continued monitoring examination per neuroendocrine tumor protocol. 2. Left inferior pubic ramus new fracture, correlate for acute versus subacute fracture injury. 3. No evidence of acute cardiothoracic process or focal consolidation. Stable mild mediastinal paratracheal and aortopulmonary lymph nodes. Consider continued surveillance for neuroendocrine tumor protocol. Electronically Signed: Roman Arellano DO at 15:17 EDT ,
== END | disposition home or self-care (01) ==
LOC: CT 14:56
PROVIDERS: PCP Family Medicine; Referring Provider Internal Medicine Hematology & Oncology; Visit Provider Internal Medicine Hematology & Oncology
DX: D3A.8 Other benign neuroendocrine tumors (principal)
CPT/HCPCS: 71260; 74177; Q9967

== ENCOUNTER → 2023-05-25 | Outpatient (CLI) | payer MEDICARE, OTHER, SELFPAY ==
[2023-05-25 17:46] LABS: Absolute Lymphocyte Count 0.93 X10^3/uL (0.83-4.51); Absolute Neutrophil Count 2.9 X10^3/uL (2.0-7.7); Basophil# 0.06 X10^3/uL; Basophil% 1.3 % (0-1); Eosinophil# 0.09 X10^3/uL; Eosinophils% 1.9 % (0-5); Hematocrit 38.2 % (37-47); Hemoglobin 12.6 g/dL (12.0-15.0); Lymphocyte # 0.93 X10^3/ul (0.83-4.51); Lymphocyte % 20.1 % (19-41); Mean Corpuscular Hgb 31.3 pg (27.0-32.0); Mean Platelet Vol. 9.7 fl (6.2-12.0); Monocyte# 0.56 X10^3/uL; Monocyte% 12.1 % (0-10); NRBC Flagged by Analyzer 0 % (0-5); Neutrophil # 2.94 X10^3/uL (2.7-7.7); Neutrophil % 63.5 % (47-70); Platelet Count 120 K/mm3 (150-450); RBC Distribution Width CV 12.9 % (11.6-14.6); RBC Distribution Width SD 44.2 fl (35.1-43.9); Red Blood Count 4.02 M/mm3 (4.2-5.4); White Blood Count 4.6 K/mm3 (4.4-11.0)
[2023-05-25 18:10] LABS: Vitamin D,25 Hydroxy 53.1 ng/mL
[2023-05-25 18:34] LABS: ALB/GLOB Ratio 0.9 RATIO (0.9-2.4); AST(SGOT) 16 U/L (15-37); Alanine Aminotransfer ALT/SGPT 25 U/L (13-56); Albumin, Serum 3.5 g/dL (3.2-5.0); Alkaline Phosphatase 104 U/L (45-117); Anion Gap 4 (5-15); BUN 14 mg/dL (7-18); BUN/Creat Ratio 25.4 RATIO (10-20); Chloride 104 mmol/L (98-107); Cholesterol 121 mg/dL (200); Creatinine, Serum 0.55 mg/dL (0.55-1.02); EST Glomerular Filtration Rate 112 mL/min (>60); Est Glom Filt Rate - Afr Amer 136 mL/min (>60); Globulin 3.7 g/dL (2.2-4.2); Glucose 72 mg/dL (74-106); High Density Lipoprotein 33 mg/dL; Potassium 3.9 mmol/L (3.5-5.1); Protein, Total 7.2 g/dL (6.4-8.2); Sodium Level 138 mmol/L (136-145); Thyroid Stim Hormone (TSH) 1.58 uIU/mL (0.358-3.74); Triglycerides 223 mg/dL; Very Low Density Lipoprotein 45 mg/dL (5-40)
== END | disposition home or self-care (01) ==
LOC: MFPLAB 16:39
PROVIDERS: PCP Family Medicine; Visit Provider Family Medicine
DX: M85.80 Other specified disorders of bone density and structure, unspecified site (principal); I10 Essential (primary) hypertension; R73.02 Impaired glucose tolerance (oral)
CPT/HCPCS: 36415; 80053; 80061; 81001; 82306; 83036; 84443; 85025

== ENCOUNTER → 2023-05-26 | Outpatient (CLI) | payer MEDICARE, OTHER, SELFPAY ==
[2023-05-26 17:02] LABS: Bacteria 0 SEEN /hpf (None Seen); Mucous, Urine 0 SEEN /hpf (<or=2+); Red Blood Cells-Urine 0 SEEN /hpf (0-5)
[2023-05-26 18:11] LABS: Color, Urine Yellow (Yellow); Glucose, Dipstick Normal (Normal); Ketone-Dipstick Negative (Negative); Leukocyte Esterase-Dipstick 500 /ul (Negative); Nitrite-Dipstick Negative (Negative); Occult Blood-Urine 10 /ul (Negative); Protein-Dipstick Negative (Negative); Urine Bilirubin Dipstick Negative (Negative); Urine Clarity Clear (Clear); Urine Urobilinogen Normal (Normal)
[2023-05-26 18:25] LABS: Squamous Epithelial Cells - UA 0-5 SEEN /hpf (5-10); White Blood Cells 0-5 SEEN /hpf (0-5)
== END | disposition home or self-care (01) ==
LOC: MFPLAB 17:00
PROVIDERS: PCP Family Medicine; Visit Provider Family Medicine
DX: I10 Essential (primary) hypertension (principal); R73.02 Impaired glucose tolerance (oral); M85.80 Other specified disorders of bone density and structure, unspecified site
CPT/HCPCS: 81001

== ENCOUNTER → 2023-08-23 | Outpatient (CLI) | payer MEDICARE, OTHER, SELFPAY ==
--- NOTE | 2023-08-23 13:15 | US_ITS ---
STUDY: THYROID ULTRASOUND REASON FOR EXAM: Female, 83 years old. THYROID NODULE TECHNIQUE: Ultrasound evaluation of the thyroid was performed with real-time and static pineda-scale imaging. COMPARISON: Comparison is made with prior examination dated June 16, 2021. FINDINGS: RIGHT LOBE: The right lobe of the thyroid gland measures 4.3 cm x 2 cm x 2.9 cm. There is a heterogeneous echotexture. Stable 4 mm x 4 mm x 3 mm hypoechoic solid nodule in the mid anterior aspect of the right lobe of the thyroid. This is unchanged. LEFT LOBE: The left lobe of the thyroid gland measures 4.3 cm x 1.5 cm x 1.8 cm. There is a heterogeneous echotexture. There are no demonstrated solid, cystic or complex lesions. ISTHMUS: The isthmus measures 4 mm. The regional lymph nodes are normal. US/Thyroid IMPRESSION: Heterogeneous echotexture of both lobes of the thyroid gland. Stable 4 mm x 4 mm x 3 mm hypoechoic solid nodule in the midpole of the right lobe. Electronically Signed: Pepito De Leon MD at 11:24 EST ,
== END | disposition home or self-care (01) ==
LOC: US 13:12
PROVIDERS: PCP Family Medicine; Referring Provider Family Medicine; Visit Provider Family Medicine
DX: E04.1 Nontoxic single thyroid nodule (principal)
CPT/HCPCS: 76536

== ENCOUNTER 2023-10-04 11:30 | Outpatient (RCR) | payer MEDICARE, OTHER, SELFPAY ==
--- NOTE | 2023-07-22 10:16 | HP.SP.EVAL ---
History History Date of Eval: 07/20/23 Attending Doctor: Referring Doctor: Reason for Referral: MEMORY IMPAIRMENT Previous speech therapy: Yes Results: 01/19/23 DISCHARGE SUMMARY FROM [facility] ADMISSION: Pt is able to complete simple/single digit addition/subtraction/multiplication w/ 95-100% accuracy. MAX written and verbal cues required for patient to complete word problems relating to number processing. Immediate recall - able to repeat back 3 words immediately after hearing them but unable to retain information long enough to mentally manipulate/reorganize it, requiring written and MAX verbal cues for completion. Able to count dollars and coins w/ 60% (09/14) accuracy. Difficulty keeping track of coins when counting aloud, frequently forgetting which coins she already counted, counting double, etc. Extended time to process and respond/execute is appreciated across all cognitive tasks. Immediate recall of paragraph length (3 sentences) information - answered yes/no questions w/ 50% accuracy. Completed executive function/deductive reasoning tasks w/ 25% accuracy, requiring mod-max cues to achieve 100% accuracy. Hyper verbosity continues to be a limiting factor in completing therapeutic tasks in a timely manner w/ frequent redirection required. 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 She fell in February and broke her pelvis, she was sent to [facility] to [facility] rehab in which she was there for two week with speech therapy. She then went to a alf ([facility]) and after her discharge she has had home health until mid June. Other Relevant Medical History/Diagnoses/Surgery: She fell in February and broke her pelvis, she was sent to [facility] to [facility] rehab in which she was there for two week with speech therapy. She then went to a alf ([facility]) and after her discharge she has had home health until mid June. She is an 82 year old female who presents to [facility] for cognitive evaluation. She was accompanied by her daughter, Nina, who helped serve as historian. 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 At this time, Nina, is managing finances and medications while living with her. 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 Medications related to this diagnosis: metoprolol, lisinopril, Keflex, doxazosin Smoking Status: Never smoker Hx Smoking: No Hx Tobacco Use: No Pain Is pain an issue with your current prescribed condition?: No Personal Preferred language: Yi Patient Allergies Allergies Allergies: Allergies amlodipine Adverse Reaction (Intermediate, Verified 04/28/23 11:43) Other Lower extremity edema Objective Cog/Ling/Com Test Administered Swkvyyfjb-Halmefwvbp-Ezoxptwssztbm Assessment Administered: Yes Ngttdevgo-Geumpwjwrz-Znrkcejbmdqkp Assessment: Cognitive ? Linguistic skills were evaluated using patient/family interview, skilled observation and informal evaluation through tasks completed by the patient. Orientation Orientation: Person and Birthdate Answer Yes/No Questions Simple: WNL Complex: WFL Conversational Tasks Comments: Merlyn presenting with increased verbosity with at times tangential language. Typically, the tangents often have a close relation to the main story, however Pt providing little detail about the tangent, therefore at the time a listener was not able to follow conversation. She did exhibit some word finding difficulties as well as semantic paraphasias throughout a conversation. Daughter reports that approximately 25% of the time she has errors in conversation due to saying the wrong word. She does not always appear to know she stated an incorrect word. Comments Comments: Patient was confused on the time line of her medical care in the last six months. She confused what happened at which facility she has been to three in the last 6 months. She stated several things twice and did not realize she is repeating herself. Medication Completing medications independently: Severe Numerical Skills Balancing Checkbook [place]: Daughter pays bills and has for the last 6 years. Cause & Effect Cause & Effect: Moderate Problem Solving Simple: Moderate Complex: Moderate Judgement & Reasoning Judgement/Reasoning: Moderate Cognitive Linguistic Supervision/Saftey Awareness of deficits: Moderate Being left home alone: Severe Managing medications: Severe Managing finances: Severe Executive Function Comments Comments: Daughter is filling pill bottles and checking to see if pt is taking them daily. Reference: Neuro-QoL instrument Radiation Oncology Patient Plan Plan Plan: Recommend outpatient speech therapy to address cognitive impairment characterized by deficits in immediate and short-term memory, word retrieval, executive functioning, attention, problem solving/reasoning, and safety awareness. Pt would benefit from training in compensatory strategies for recall and word retrieval, as well as cognitive training to improve cognitive functioning. Recommendations Treatment Warranted: Cognition Progress Prognosis: Good Frequency Frequency: 1x/Week Duration: 2 Months Visits in this POC: 8 Patient/Family Goal Patient/Family Goal: Daughter would like to see increased safety awareness for her to be able live on her own. Goal #1-5 Goal #1: Merlyn will independently complete complex problem solving, reasoning, and executive function tasks including but not limited to functional ADL (i.e. managing finances, safety awareness, paying bills, medication management, meal planning, using cellphone) with 80% acc during 2/3 sessions. Goal #2: Merlyn will complete basic immediate, short-term, and working memory tasks with 80% acc independently across 3 measured opportunities. Goal #3: Merlyn will demonstrate use of word finding strategies to complete complex convergent and divergent naming tasks with 85% acc independently across 3 measured opportunities to improve word retrieval. Goal #4: Completion of standardized testing. Education Patient has Indicated that the Following Identified Educational Needs: Cognitively Impaired Patient Instruction Patient Education: Diagnosis, Treatment Plan and Goals Person Taught: Patient and Family Teaching Method: Discussion Response to teaching: Verbalize understanding
--- NOTE | 2023-12-06 16:07 | HP.SP.DC ---
ST Discharge Summary Discharged: Discharge: Merlyn Perez is discharged from speech therapy at [facility] as of October 04, 2023. She was evaluated on 07/22/23 for cognitive deficits. She had a total of 8 visits following her initial evaluation. The goals focused on problem solving, safety, reasoning and judgement. Her testing for re-evaluation was with the CLQT: Attention changed from 125( initial evaluation)-129 ( mild), memory went from 151-114 ( WNL to Moderate impaired), executive function remained the same at 10 ( moderate), language went from 28-26 (WNL to mild) visuospatial went from 53-43 ( mild). Her daughter was educated throughout the sessions as to needing supervision and the recommendation she no longer live alone. Therapy was discontinued as progress was not demonstrated. Please see that report for full details. Thank you for allowing me to participate in the care of your patient.
== END 2023-10-04 19:00 | disposition home or self-care (01) ==
LOC: SP 11:30
PROVIDERS: PCP Family Medicine; Referring Provider Family Medicine; Visit Provider Family Medicine
DX: G31.84 Mild cognitive impairment of uncertain or unknown etiology (principal); F80.89 Other developmental disorders of speech and language
CPT/HCPCS: 92507; 92523; 97129; 97130

== ENCOUNTER → 2023-10-07 | Outpatient (CLI) | payer MEDICARE, OTHER, SELFPAY ==
--- OUTSIDE RECORDS SUMMARY | 2023-10-07 12:30 | XMS RPT_ITS | CCD ---
Author Name Unknown Address [address] [place] [address] Organization [facility] Care Team Providers Care Pulley Man Name Role Phone Leonardo Sheehan Unavailable Unavailable Leonardo Sheehan Unavailable Unavailable Diomedes LANDAVERDE, Milo Primary Care Provider Milo Hercules MD Primary Care Provider [phone] MAGDALENA MANN Attending Unavaila ble SYSTEM, PROVIDER NOT IN Referring Unavaila ble MARY VILLELA Admitting Unavaila ble KELL DERAS Consulting Unavailab MILO Zaidi Primary Care Unavailable [facility] Consulting Unavailable [facility] Consulting Unavailable BOOK, CLARISSA VALLADARES Consulting Unavailable Allergies Allergy Classification Reported Allergen(s) Allergy Type Date of Onset Reaction(s) Facility (3 sources) amLODIPine; Translations: [AMLODIPINE] Drug Allergy 12-17-2022 Other (See Comments) [facility] Medications Current Medications Medication Drug Class(es) Dates Sig (Normalized) Sig (Original) acetaminophen 325 mg / HYDROcodone bitartrate 5 mg oral tablet (3 sources) Opioid Agonist Start: 01-07-2023 End: 01-10-2023 Completed/Discontinued Medications Medication Drug Class(es) Dates Sig (Normalized) Sig (Original) acetaminophen 325 mg oral tablet (3 sources) Start: 01-03-2023 End: 01-07-2023 take 650 mg by mouth every four hours as needed for headache and pain 650 mg, Oral, Every 4 hours PRN, headaches, fever 100.4 F or greater, mild pain, Starting on 01/03/23 at 0900 Problems Active Problems Problem Classification Problem Date Documented Da te Episodic/Chronic Other and unspecified benign neoplasm (1 source) Neuroendocrine tumor; Translations: [Other benign neuroendocrine tumors] 01-24-2023 Episodic Other gastrointestinal disorders (1 source) Abdominal mass; Translations: [Intra-abdominal and pelvic swelling, mass and lump, unspecified site] 12-17-2022 Episodic Other gastrointestinal disorders (4 sources) Mass of colon; Translations: [Other specified diseases of intestine] Onset: 12-17-2022 12-27-2022 Episodic Other lower respiratory disease (1 source) Nodule of lung; Translations: [Solitary pulmonary nodule] 12-20-2022 Episodic Prolapse of female genital organs (3 sources) Third degree uterine prolapse; Translations: [Complete uterovaginal prolapse] Onset: 12-30-2022 12-30-2022 Chronic Spondylosis; intervertebral disc disorders; other back problems (3 sources) Backache; Translations: [Dorsalgia, unspecified] Onset: 12-28-2022 12-28-2022 Episodic Unclassified (1 source) Unknown / UNK(Unknown) Onset: 06-24-2017 Past or Other Problems Problem Classification Problem Date Documented Da te Episodic/Chronic Abdominal pain (6 sources) Abdominal pain; Translations: [Unspecified abdominal pain] Onset: 12-17-2022 12-17-2022 Episodic Encephalitis (1 source) Viral encephalitis Onset: 06-24-2017 Episodic Other gastrointestinal disorders (2 sources) Intra-abdominal and pelvic swelling, mass and lump, unspecified site; Translations: [Intra-abdominal and pelvic swelling, mass and lump, unspecified site] Onset: 12-17-2022 Episodic Other gastrointestinal disorders (2 sources) Other specified diseases of intestine; Translations: [Other specified diseases of intestine] Onset: 12-17-2022 Episodic Other lower respiratory disease (2 sources) Solitary pulmonary nodule; Translations: [Solitary pulmonary nodule] Onset: 12-17-2022 Episodic Results Test Name Value Interpretation Reference Range Facil ity Vital Signs Date Time Vital Sign Value Performing Clinician Faci lity 01-21-2023 11:28-0400 Body mass index (BMI) [Ratio] 25.08 kg/m2 Kell Deras MD Work Phone: [facility] 01-21-2023 11:28-0400 Body temperature 97.5 [degF] Kell Deras MD Work Phone: [facility] 01-21-2023 11:28-0400 Body weight 64.23 kg Kell Deras MD Work Phone: [facility] 01-21-2023 11:28-0400 Diastolic blood pressure 81 mm[Hg] Kell Deras MD Work Phone: [facility] 01-21-2023 11:28-0400 Heart rate 89 /min Kell Deras MD Work Phone: [facility] 01-21-2023 11:28-0400 Systolic blood pressure 133 mm[Hg] Kell Mckay Work Phone: [facility] 01-07-2023 14:28-0400 Body temperature 97.81 [degF] Martell Braswell MD Work Phone: [facility] 01-07-2023 14:28-0400 Diastolic blood pressure 74 mm[Hg] Martell Braswell MD Work Phone: [facility] 01-07-2023 14:28-0400 Heart rate 90 /min Martell Braswell MD Work Phone: [facility] 01-07-2023 14:28-0400 Respiratory rate 16 /min Martell Braswell MD Work Phone: [facility] 01-07-2023 14:28-0400 SaO2% (BldA) [Mass fraction] 98 % Martell Braswell MD Work Phone: [facility] 01-07-2023 14:28-0400 Systolic blood pressure 133 mm[Hg] Martell Braswell MD Work Phone: [facility] 01-07-2023 08:57-0400 Body mass index (BMI) [Ratio] 24.29 kg/m2 Martell Braswell MD Work Phone: [facility] 01-07-2023 08:57-0400 Body weight 62.2 kg Martlel Braswell MD Work Phone: [facility] 12-17-2022 12:07-0400 Body height 160 cm Martell Braswell MD Work Phone: [facility] Encounters Encounter Date Encounter Type Care Provider Facility Start: 01-21-2023 End: 01-21-2023 Postop follow up visit related to original px Kell Deras MD Work Phone: [facility] Procedures Date Procedure Procedure Detail Performing Clinician Start: 01-07-2023 Basic metabolic panel calcium total Dima Lu MD Work Phone: Start: 01-06-2023 Culture bacterial quanttative colony count urine Demarcus Hayden MD Work Phone: Start: 01-06-2023 Urnls dip stick/tablet reagent auto microscopy Demarcus Hayden MD Work Phone: Start: 01-06-2023 Basic metabolic panel calcium total Dima Lu MD Work Phone: Start: 01-05-2023 Basic metabolic panel calcium total Dima Lu MD Work Phone: Start: 01-04-2023 Basic metabolic panel calcium total Dima Lu MD Work Phone: Start: 01-03-2023 Glucose measurement [facility] Work Phone: Start: 01-03-2023 Glucose measurement [facility] Work Phone: Start: 01-03-2023 Calcium ionized Becky Tamayo RPh,PharmD Start: 01-03-2023 Comprehensive metabolic panel Becky Tamayo h,PharmD Start: 01-03-2023 Glucose measurement [facility] Work Phone: Start: 01-02-2023 End: 01-03-2023 Glucose measurement [facility] Work Phone: Start: 01-02-2023 Glucose measurement [facility] Work Phone: Start: 01-02-2023 Glucose measurement [facility] Work Phone: Start: 01-02-2023 Glucose measurement [facility] Work Phone: Start: 01-02-2023 Glucose measurement [facility] Work Phone: Start: 01-02-2023 Basic metabolic panel calcium total Dima Lu MD Work Phone: Start: 4 End: 01-02-2023 Glucose measurement [facility] Work Phone: Start: 01-01-2023 Glucose measurement [facility] Work Phone: Start: 01-01-2023 Glucose measurement [facility] Work Phone: Start: 01-01-2023 Glucose measurement [facility] Work Phone: Start: 01-01-2023 Glucose measurement [facility] Work Phone: Start: 01-01-2023 Radiologic exam abdomen [address] MD Work Phone: Start: 01-01-2023 Glucose measurement [facility] Work Phone: Start: 01-01-2023 Basic metabolic panel calcium total Dima Lu MD Work Phone: Start: 01-01-2023 Glucose measurement [facility] Work Phone: Start: 12-31-2022 Glucose measurement [facility] Work Phone: Start: 12-31-2022 Glucose measurement [facility] Work Phone: Start: 12-31-2022 Glucose measurement [facility] Work Phone: Start: 12-31-2022 Glucose measurement [facility] Work Phone: Start: 12-31-2022 Glucose measurement [facility] Work Phone: Start: 6 Basic metabolic panel calcium total Dima Lu MD Work Phone: Start: 12-31-2022 Glucose measurement [facility] Work Phone: Start: 12-30-2022 Glucose measurement [facility] Work Phone: Start: 12-30-2022 Glucose measurement [facility] Work Phone: Start: 12-30-2022 Glucose measurement [facility] Work Phone: Start: 12-30-2022 Glucose measurement [facility] Work Phone: Start: 12-30-2022 Ct abdomen & pelvis w/contrast material Mariluz St MD Work Phone: Start: 12-30-2022 Basic metabolic panel calcium total Dima Lu MD Work Phone: Start: 12-30-2022 Glucose measurement [facility] Work Phone: Start: 12-29-2022 Glucose measurement [facility] Work Phone: Start: 12-29-2022 Glucose measurement [facility] Work Phone: Start: 12-29-2022 Glucose measurement [facility] Work Phone: Start: 12-29-2022 Glucose measurement [facility] Work Phone: Start: 12-29-2022 Glucose measurement [facility] Work Phone: Start: 12-29-2022 Basic metabolic panel calcium total Dima Lu MD Work Phone: Start: 12-29-2022 Radiologic exam abdomen 1 view Raf meyers MD Work Phone: Start: 12-29-2022 Glucose measurement [facility] Work Phone: Start: 12-28-2022 Glucose measurement [facility] Work Phone: Start: 12-28-2022 Glucose measurement [facility] Work Phone: Start: 12-28-2022 Glucose measurement [facility] Work Phone: Start: 12-28-2022 Glucose measurement [facility] Work Phone: Start: 12-28-2022 Glucose measurement [facility] Work Phone: Start: 12-28-2022 Comprehensive metabolic panel Becky Tamayo [facility],PharmD Start: 12-28-2022 Glucose measurement [facility] Work Phone: Start: 12-27-2022 Basic metabolic panel calcium total Dima Lu MD Work Phone: Start: 12-27-2022 Radiologic exam abdomen 1 view Devon Driscoll MD Work Phone: Start: 12-27-2022 Adult depression screening assessment Kell Deras MD Work Phone: Start: 12-26-2022 Assay of lactate Jackie Wilhelm MD Work Phone: Start: 12-26-2022 Ct abdomen & pelvis w/contrast material Mariluz St MD Work Phone: Start: 12-26-2022 Basic metabolic panel calcium total Dima Lu MD Work Phone: Start: 12-26-2022 Packed RBC preparation Carmen Lu MD Work Phone: Start: 12-25-2022 Radiologic exam abdomen 1 view Manny Nieto MD Work Phone: Start: 12-25-2022 Radiologic exam abdomen 1 view Devon Driscoll MD Work Phone: Start: 12-25-2022 Basic metabolic panel calcium total Dima Lu MD Work Phone: Start: 12-25-2022 Radiologic exam abdomen 1 view Christian lugo MD Work Phone: Start: 12-24-2022 Basic metabolic panel calcium total Dima Lu MD Work Phone: Start: 12-23-2022 Basic metabolic panel calcium total Devon Driscoll MD Work Phone: Start: 12-23-2022 Level vi surg pathology gross&microscopic exam Kell Deras MD Work Phone: Start: 12-23-2022 End: 12-23-2022 COLECTOMY RIGHT LAPAROSCOPIC Kell Deras MD Work Phone: Start: 12-23-2022 Basic metabolic panel calcium total Dima Lu MD Work Phone: Start: 12-22-2022 Blood group typing Carolina Gross MD Work Phone: Start: 12-22-2022 Blood typing serologic abo Carmen chacko MD Work Phone: Start: 12-21-2022 Radiologic exam abdomen 1 view Christin Fontana MD Work Phone: Start: 12-21-2022 Ct abdomen & pelvis w/contrast material Mariluz St MD Work Phone: Start: 12-20-2022 End: 12-20-2022 Esophagogastroduodenoscopy Stormadelina seals MD Work Phone: Start: 12-20-2022 Endoscopy of esophagus Storm muir MD Work Phone: Start: 12-20-2022 End: 12-20-2022 Colonoscopy Storm Byers MD Work Phone: Start: 12-20-2022 End: 12-20-2022 Basic metabolic panel calcium total Pao Serrano OPERATIONS OFFICER Work Phone: Start: 12-19-2022 Comprehensive metabolic panel Aleksandra pedraza MD Work Phone: Start: 12-19-2022 Us retroperitoneal real time w/image complete Aleksandra Rojas MD Work Phone: Start: 12-19-2022 End: 12-19-2022 Radex spine thoracic 2 views Aleksandra Angel i, MD Work Phone: Start: 12-18-2022 URINE YU CONTAINER Franklin Lala s PA-Rafat Work Phone: Start: 12-18-2022 Urnls dip stick/tablet reagent auto microscopy Franklin Lee PA-C Work Phone: Start: 12-18-2022 Radiologic exam abdomen 1 view Carmen Lu MD Work Phone: Start: 12-18-2022 Basic metabolic panel calcium total Gran t Raf Villela MD Work Phone: Start: 12-17-2022 Blood count complete automated Ricky Lopez DO Work Phone: Start: 12-17-2022 End: 12-17-2022 Computerized tomography, limited studies External Transcribed Start: 12-17-2022 Magnetic resonance imaging External Zavala scribed Start: 12-17-2022 End: 12-17-2022 Assay of lipase Franklin Lee PA-C Work Phone: Start: 12-17-2022 GOLD TOP Martell Braswell MD Work Phone: Start: 12-17-2022 Hepatic function panel Franklin DEVINE-Rafat Work Phone: Start: 12-17-2022 LIGHT BLUE TOP Martell Braswell MD Work Phone: Start: 12-17-2022 YU TOP Martell Braswell MD Work Phone: Start: 12-17-2022 PINK TOP Martell Braswell MD Work Phone: Start: 12-17-2022 RAINBOW DRAW Martell Braswell MD Work Phone: Start: 12-17-2022 End: 12-17-2022 Radiographic imaging procedure External Transcribed Start: 12-17-2022 Computerized tomography, limited studies External Transcribed Plan of Treatment Date Care Activity Detail Author Start: 11-18-2031 Tetanus vaccination Tetanus: Every 10yrs [facility] Start: 12-28-2023 Depression screening using PHQ-9 (Patient Health Questionnaire 9) score Depression Screening (PHQ-2/9) [facility] Start: 05-27-2023 Influenza vaccination Sequential Influenza Vaccine (Season Ended) [facility] Start: 03-22-2023 End: 12-21-2023 CT of chest without contrast [facility] Work Phone: Start: 01-06-2021 COVID-19 Vaccine (3 - Moderna risk series) COVID-19 Vaccine (3 - Moderna risk series) [facility] Start: 11-26-2015 Pneumococcal Vaccine: Age 65+ (2 - PPSV23 if available, else PCV20) Pneumococcal Vaccine: Age 65+ (2 - PPSV23 if available, else PCV20) [facility] Start: 2006 Fall risk assessment Falls Risk Assessment [facility] Start: 1960 Administration of herpes zoster vaccine Zoster Vaccines (1 of 2) [facility] Start: 1951 Diabetic foot examination Foot Exam [facility] Start: 1951 Glaucoma screening Ophthalmology Exam [facility] Start: 1951 Urine screening for protein Urine Microalbumin [facility] Start: 1944 History and physical examination, annual for health maintenance Wellness Visit [facility] Start: 1941 Hemoglobin A1c measurement A1C [facility] Start: 1941 Screening for osteoporosis Dexa Scan [facility] Payers Date Payer Category Payer Unknown [id number] 2022 Unknown [id number] 2006 Medicare [id number] 2006 Medicare [id number] 2006 Medicare [id number] 1940 Unknown [id number] Self-pay [id number] Social History Date Type Detail Facility Start: 12-17-2022 Tobacco smoking status NHIS Never sm oked tobacco [facility] History of tobacco use Passive smoker [facility] Start: 12-17-2022 Tobacco use and exposure Smokeless t obacco non-user [facility] Start: 12-24-2022 End: 01-24-2023 Alcohol intake Ex-drinker (finding) [facility] Start: 12-24-2022 End: 12-27-2022 History of Social function [facility] Start: 12-24-2022 End: 12-27-2022 Tobacco use panel [facility] Adult Depression Scr eening Assessment [facility] Start: 1940 [facility] Start: 12-07-2022 End: 01-21-2023 Exposure to SARS-CoV-2 (event) Not sure [facility] Clinical Notes 12-17-2022 to 01-24-2023 Kell Deras MD - 01/24/2023 4:27 PM Isaac Gómez RN - 01/07/2023 4:07 PM Darya Gonzáles RN - 01/07/2023 11:06 AM BRAULIOTEden Nelson CNP - 01/07/2023 9:36 AM EDT Note Date & Type Note Facility 01-24-2023 History of Presen t illness Narrative Surgical Oncology Post Operative Office Note Patient Name: Merlyn Perez MR #: [id number] : 1940 Physicians: Milo Hercules MD (PCP); No ref. provider found (Referring) Assessment and Plan: 82 y.o. y/o female s/p Laparoscopic Right Colectomy on 12/23/2022 Patient has been doing well from a GI standpoint since her discharge. Main complaint seems to be back related. Most of her symptoms seem to be due to nerve pain with worsening of her pain now that she is been titrating down on gabapentin. I suggest that she requests spinal imaging with her PCP. Again reviewed her pathology. They have established with a local medical oncologist in [place] for discussion of adjuvant therapy if indicated as well as surveillance. Okay to resume normal diet and activity from my standpoint. Given there for a distance we will follow-up as needed. Happy to review imaging when it occurs for surveillance if they would like. All questions were answered to their satisfaction. Chief Complaint/Reason for Visit: Neuroendocrine tumor History of Present Illness: Merlyn Perez is a 82 y.o. y/o female who is s/p a Laparoscopic Right Colectomy on 12/23/2022. Eating well. Having normal bowel function. Denies nausea or vomiting. Still having back and radicular pain radiating into her sides. Welcome Hostess: No History: Past Medical History: Diagnosis Date Hypertension Stroke (HCC) Past Surgical History: Procedure Laterality Date COLECTOMY LAPAROSCOPIC RIGHT N/A 12/23/2022 Procedure: LAPAROSCOPIC RIGHT COLECTOMY; Surgeon: Kell Deras MD; Location: [facility] Main OR; Service: General Surgery COLONOSCOPY N/A 12/20/2022 Procedure: COLONOSCOPY; Surgeon: Storm Byers MD; Location: [facility] Endo; Service: Gastroenterology EGD N/A 12/20/2022 Procedure: ESOPHAGOGASTRODUODENOSCOPY; Surgeon: Storm Byers MD; Location: [facility] Endo; Service: Gastroenterology History reviewed. No pertinent family history. Social History Socioeconomic History Marital status: Tobacco Use Smoking status: Never Passive exposure: Past Smokeless tobacco: Never Vaping Use Vaping status: Never Used Passive vaping exposure: Yes Substance and Sexual Activity Alcohol use: Not Currently Drug use: Never Allergy Information: I have reviewed the patient's allergies. Amlodipine Home Medications: Outpatient Medications as of 01/21/2023 Medication Sig aspirin 81 mg chewable tablet Chew and Swallow 1 (one) tablet (81 mg total) . calcium carbonate (TUMS) 200 mg calcium (500 mg) chewable tablet Chew and Swallow 1 (one) tablet (500 mg total) 3 (three) times a day . gabapentin (NEURONTIN) 100 MG capsule Take 2 (two) capsules (200 mg total) by mouth every 8 (eight) hours (Days supply per fill: 3) . lisinopriL (PRINIVIL,ZESTRIL) 20 MG tablet Take 1 (one) tablet (20 mg total) by mouth 2 (two) times a day . metoprolol tartrate (LOPRESSOR) 25 MG tablet Take 1 (one) tablet (25 mg total) by mouth 2 (two) times a day . omeprazole (PRILOSEC) 40 MG capsule Take 1 (one) capsule (40 mg total) by mouth daily . clopidogreL (PLAVIX) 75 mg tablet Take 1 (one) tablet (75 mg total) by mouth daily . furosemide (LASIX) 20 MG tablet Take 1 (one) tablet (20 mg total) by mouth daily . naloxone (NARCAN) 4 mg/actuation Watkins Administer 1 spray into one nostril for known or suspected opioid overdose. If patient worsens or does not respond, may repeat in 2-3 minutes. . rosuvastatin 20 mg CpSP Take 1 (one) capsule (20 mg total) by mouth daily . Review of Systems: A complete review of systems was performed and all pertinent positives and negatives are noted in the HPI above. Physical Examination: Vital Signs: BP 133/81 Pulse 89 Temp 97.5 F (36.4 C) (Temporal) Wt 64.2 kg (141 lb 9.6 oz) BMI 25.08 kg/m Constitutional: No acute distress Eyes: normal conjunctivae, no scleral icterus, extraocular movements intact. Cardiovascular: no edema noted in extremities Respiratory: normal respiratory effort without use of accessory muscles Gastrointestinal: Incisions well-healed, abdomen is soft and nondistended. Nontender. Skin: no rash noted, warm, dry and intact. Psychiatric: Appropriate judgement and insight, oriented to person, place and time. Labs Reviewed: 01/24/23 4:27 PM Lab Results Component Value Date WBC 3.11 (L) 01/07/2023 HGB 9.7 (L) 01/07/2023 HCT 30.4 (L) 01/07/2023 MCV 95.3 01/07/2023 PLT 155 01/07/2023 RBC 3.19 (L) 01/07/2023 Lab Results Component Value Date GLUCOSE 109 (H) 01/07/2023 CALCIUM 8.7 01/07/2023 NA 141 01/07/2023 K 3.7 01/07/2023 CL 104 01/07/2023 BUN 19 01/07/2023 CREATININE 0.52 (L) 01/07/2023 Lab Results Component Value Date BILITOT 0.4 01/03/2023 BILITOT 0.4 12/28/2022 BILITOT 0.7 12/19/2022 BILITOT 0.7 12/17/2022 BILIDIR 0.3 12/17/2022 ALKPHOS 185 (H) 01/03/2023 ALKPHOS 83 12/28/2022 ALKPHOS 106 12/19/2022 ALKPHOS 103 12/17/2022 AST 82 (H) 01/03/2023 AST 19 12/28/2022 AST 24 12/19/2022 AST 34 12/17/2022 ALT 75 (H) 01/03/2023 ALT 15 12/28/2022 ALT 43 (H) 12/19/2022 ALT 61 (H) 12/17/2022 ALBUMIN 3.1 (L) 01/03/2023 ALBUMIN 2.7 (L) 12/28/2022 ALBUMIN 4.1 12/19/2022 ALBUMIN 3.9 12/17/2022 Lab Results Component Value Date INR 1.1 12/23/2022 PROTIME 14.3 12/23/2022 Tumor Markers: No results found for: CA199, CEA, AFPTM, EXTCHROMOGA, EXTPANPOL Drain Labs: No results found for: AMYBF, BILIRUBINFLU, CREATFL Pathology Reviewed: 01/24/23 4:27 PM Final Diagnosis Date Value Ref Range Status 12/23/2022 Final ILEUM: NEUROENDOCRINE TUMOR Procedure: Right hemicolectomy Tumor site: Distal terminal ileum Histologic type and grade: G1: Well-differentiated neuroendocrine tumor Histologic grade determination: Mitotic rate: Less than 2 mitoses/2 mm2 Ki-67 labeling index: Less than 3% Tumor size: 1.2 cm Tumor focality: Unifocal Tumor extent: Invades muscularis propria Lymphovascular invasion: Present Large mesenteric masses (>2 cm): Not identified (2 smaller mesenteric masses, one of which is adhesed to terminal ileum in area of primary tumor) Margin status: All margins negative for tumor Margins involved by tumor: Not applicable Regional lymph node status: Tumor present in regional lymph node(s) No. of lymph nodes with tumor: 6 No. of lymph nodes examined: 27 Distant site(s) involved: Not applicable AJCC 8th edition pathologic stage: TNM Descriptors: N/A pT2, pN1, pMNot applicable - pM cannot be determined from the submitted specimen(s) (stage III) A summary of this patient s tumor is provided above (see more details below). Terminal ileum, cecum, and ascending colon, right hemicolectomy: Distal terminal ileum with a well-differentiated neuroendocrine tumor, Grade 1 (1.2 cm). See Comment and Synoptic Report. Mesenteric adipose tissue with two tumor deposits (neither exceeding 2 cm). Six of twenty-seven lymph nodes positive for metastatic neuroendocrine tumor (6/27). Ascending colon with tubular adenoma and diverticulum. Appendix with fibrous tip obliteration. Imaging Reviewed: 01/24/23 4:27 PM Impressions for radiology reports reviewed are listed below: XR Abdomen AP Result Date: 01/01/2023 EXAMINATION: XR ABDOMEN /KUB/FLAT PLATE/1 VIEW 01/01/2023 8:49 am HISTORY: ORDERING SYSTEM PROVIDED HISTORY: eval gastric decompression, TECHNOLOGIST PROVIDED HISTORY: Illness/Other Reason for exam: eval gastric decompression Cancer History: Surgery, RadiationHistory: Encounter Type: Unknown Additional signs and symptoms: ORDERING SYSTEM PROVIDED DIAGNOSIS CODES: R91.1 Pulmonary nodule R10.9 Abdominal pain, unspecified abdominal location R19.00 Abdominal mass, unspecified abdominal location K63.89 Colonic mass COMPARISON: CT scan abdomen and pelvis 12/30/2022. FINDINGS: The nasogastric tube tip is located in the body of the stomach, but the side hole of the tube is located near the esophagogastric junction. There are surgical clips in the right upper quadrant. There is a similar appearance of a moderately distended air-filled loop of small bowel in the left side of the lower abdomen and pelvis. This measures approximately 3.8 cm in diameter. There is also a moderate amount of gaseous distension throughout the colon. There are degenerative changes of the lumbar spine again seen. 1. There is persistent moderate gaseous distention of a small bowel loop in the left side of the abdomen and pelvis which may be secondary to a partial small bowel obstruction or ileus. 2. The nasogastric tube appears to have been pulled back slightly and the side hole of the tube is located at the esophagogastric junction. This could be advanced approximately 7 cm to position the side hole of the tube into the body of the stomach. Workstation ID: [id number] CT Abdomen Pelvis With Contrast Result Date: 12/30/2022 EXAMINATION: ENHANCED CT SCAN OF THE ABDOMEN AND PELVIS: 12/30/2022 HISTORY: Dx: R91.1 (Pulmonary nodule) IV AND ORAL CONTRAST THROUGH NG Injury/Trauma or Illness?:Illness/Other s/p R hemicolectomy, eval bowel obstruction COMPARISON FILMS: Enhanced CT scan of the abdomen and pelvis: 12/26/2022. TECHNIQUE: 3 mm axial images from lung bases through ischial tuberosities following administration of intravenous contrast were obtained. Oral contrast was utilized as well. Sagittal, coronal reconstructions were also performed. Dose reduction techniques were achieved by using automated exposure control and/or adjustment of mA and/or kV according to patient size and/or use of iterative reconstruction technique. FINDINGS: There is probably a central venous catheter with the tip extending to the junction of superior vena cava, right atrium. The lung bases demonstrate no focal abnormalities. The heart size seems normal. There are no filling defects in the visualized cardiac chambers. There is probably a small sliding-type hiatus hernia or thickening of the distal esophagus. There is an esophagogastric tube with the tip in the proximal body of the stomach. There are mild coronary artery calcifications as well as calcifications of the aortic annulus. CT ABDOMEN: The liver demonstrates low attenuation compatible with fatty liver. The patient is status post cholecystectomy. Spleen, pancreas, adrenal glands appear normal. There is a small amount of ascites. The kidneys demonstrate mild prominence to the collecting systems; however, there is no obstructive uropathy. This could be physiological since the bladder is significantly distended. The abdominal aorta is mildly atherosclerotic. Colon for the most part is normal in caliber. The patient has undergone right hemicolectomy. The proximal small bowel loops are of normal caliber; however, beginning involving the [id number]-wa-[id number] ileum to the level of anastomosis and just proximal to anastomosis these bowel loops are distended. The loop which is anastomosed with the colon seems distended as well; however, the loop just proximal to it is of normal caliber. There is some thickening of these bowel loops. There is no pneumatosis. There is some haziness in the surrounding mesentery. There are scattered diverticula in the colon particularly in the sigmoid colon. Most of the distal descending colon, sigmoid colon is collapsed. CT PELVIS: The bladder is significantly distended with small amount of air in the nondependent portion which could be secondary to recent catheterization. Uterus, ovaries are not well seen. There is no pelvic adenopathy. There are no focal fluid collections. The visualized osseous structures demonstrate mild degenerative changes of thoracolumbar spine. 1. Patient has undergone right hemicolectomy with distended bowel loops predominantly [id number] ileum to the level of anastomosis with some narrowing, thickening of the bowel loops just proximal to anastomosis probably the cause of at least partial small bowel obstruction since the contrast can be seen in the colon. There is no pneumatosis or significant induration of surrounding fat. This thickening of the bowel loops just proximal to anastomosis could be secondary to underlying inflammatory changes. Less likely possibility of ischemic event will be difficult to exclude. The vessels in the vicinity are widely patent. 2. Ascites. 3. Small pericardial effusion. 4. Diverticulosis without diverticulitis. 5. Significantly distended bladder with a droplet of air in the nondependent portion which could be from recent catheterization. In the absence of that history, fistulous connection to bowel is in the differential consideration. 6. There is mild prominence to collecting systems of the kidneys and ureters probably physiological due to significantly distended bladder with a simple-appearing cyst in the midpole of the right kidney. There is no nephro- or ureterolithiasis. NESHA/france Workstation ID: [id number] XR Abdomen AP Result Date: 12/29/2022 EXAMINATION: XR ABDOMEN /KUB/FLAT PLATE/1 VIEW HISTORY: ORDERING SYSTEM PROVIDED HISTORY: NGT placement verification, COMPARISON: No prior studies are available at the time of dictation. TECHNIQUE: Single views of the abdomen are submitted. FINDINGS: NG tube in good position. Oral contrast in the large bowel. There is a nonobstructive bowel gas pattern. There is no intraperitoneal free air. There is no abnormal calcification organomegaly detected. Bony elements are unremarkable. No evidence of bowel obstruction or free intraperitoneal air. NG tube in good position. Oral contrast in the large bowel. Workstation ID: [id number] XR Abdomen AP Result Date: 12/27/2022 EXAMINATION: XR ABDOMEN /KUB/FLAT PLATE/1 VIEW, 12/27/2022: HISTORY: Eval contrast progression COMPARISON: CT abdomen pelvis, 12/26/2022. FINDINGS: There is scattered contrast in the colon extending distally into the rectum. There is a normal volume of colonic stool. Several gas-filled distended small bowel loops are unchanged. NG tube side port is at the level of the left diaphragm. Cholecystectomy clips are noted. 1. Scattered contrast in the colon extending into the rectum. 2. Several gas distended small bowel loops may reflect ileus or partial small bowel obstruction, grossly unchanged. 3. NG tube side port at the level of the diaphragm. This should be advanced at least 3 cm and then be rechecked. Workstation ID: [id number] CT Abdomen Pelvis With Contrast Result Date: 12/26/2022 EXAMINATION: CT ABDOMEN PELVIS WITH CONTRAST HISTORY: ORDERING SYSTEM PROVIDED HISTORY: s/p R hemicolectomy, continued nausea/distention, eval for patency of anastomosis, possible obstructino, TECHNOLOGIST PROVIDED HISTORY: Illness/Other Reason for exam: s/p R hemicolectomy, continued nausea/distention, eval for patency of anastomosis, possible obstructino Encounter Type: Initial Additional signs and symptoms: None ORDERING SYSTEM PROVIDED DIAGNOSIS CODES: R91.1 Pulmonary nodule R10.9 Abdominal pain, unspecified abdominal location R19.00 Abdominal mass, unspecified abdominal location COMPARISON: CT abdomen and pelvis December 21, 2022. TECHNIQUE: CT examination of the abdomen and pelvis following the administration of intravenous contrast. Coronal and sagittal reformations were performed. Dose reduction techniques were achieved by using automated exposure control and/or adjustment of mA and/or kV according to patient size and/or use of iterative reconstruction technique. CONTRAST: IOPAMIDOL 370 MG IODINE/ML (76 %) INTRAVENOUS SOLUTION - 75 mL, IOPAMIDOL 76 % ORAL - <See Chart> , FINDINGS: Scattered independent atelectasis is present in the lung bases with no pleural effusion. Several noncalcified small nodules are redemonstrated, nonspecific. The patient is status post recent right hemicolectomy with an ileocolonic anastomosis. Nasogastric tube tip is present within the gastric body. There is long segment of circumferential wall thickening of the distal small bowel from the left pelvis (series 4 image 105) to the ileocolonic anastomosis. Proximal to this, the small bowel is mildly dilated measuring up to 3.6 cm in diameter. Enteric contrast is dense within the dilated small bowel loops and diluted within the distal small bowel to the anastomosis. The colon is nondistended. Extensive sigmoid colon diverticulosis noted without signs of acute diverticulitis. There are a few punctate collections of gas in the ventral wall and extraperitoneal pelvis with no intraperitoneal free air. There is a small to moderate volume of scattered free fluid in the abdomen and pelvis. Fluid is water attenuation with the exception of some due in of the pendant layering higher attenuation fluid in the posterior peritoneal cavity of the pelvis may be related to blood products. The liver, spleen, pancreas, adrenal glands and kidneys show no acute abnormality or suspicious masses. Gallbladder is surgically absent. Similar prominent number of periaortic and pericaval as well as pelvic lymph nodes. Stable mildly enlarged right distal aortic lymph node (image 81) measuring 16 x 10 mm. Urinary bladder mildly distended with nondependent gas that may be from recent bladder catheterization. As before, there are changes of pelvic floor weakness with probable vaginal prolapse. Mild scattered edema in the subcutaneous tissues. No acute osseous abnormality. 1. Long segment of thick-walled edematous distal small bowel to the ileocolonic anastomosis. This finding is nonspecific at this time, although the possibly of early ischemia should be considered. There is no bowel pneumatosis or signs of bowel perforation. 2. Mildly dilated small bowel proximal to the thickened segment. The oral contrast given is present throughout the small bowel to the anastomosis. 3. Moderate scattered free fluid within the abdomen and pelvis and mild mesenteric edema. Free fluid is water attenuation with the exception of a small amount of layering debris or blood products in the posterior peritoneal cavity of the pelvis. 4. Nasogastric tube tip position within the gastric body. Stomach is nondistended. 5. No acute abnormality of the solid organs. 6. Additional stable nonemergent findings as above. [employer]ant[employer] Workstation ID: [id number] XR Abdomen AP Result Date: 12/25/2022 EXAMINATION: XR ABDOMEN /KUB/FLAT PLATE/1 VIEW 12/25/2022 7:22 pm HISTORY: ORDERING SYSTEM PROVIDED HISTORY: NG/OG tube placement, TECHNOLOGIST PROVIDED HISTORY: Illness/Other Reason for exam: NG/OG tube placement Cancer History: Surgery, RadiationHistory: Encounter Type: Initial Additional signs and symptoms: NG/OG tube placement ORDERING SYSTEM PROVIDED DIAGNOSIS CODES: R91.1 Pulmonary nodule R10.9 Abdominal pain, unspecified abdominal location R19.00 Abdominal mass, unspecified abdominal location COMPARISON: 12/25/2022 radiograph performed at approximately 8:09 a.m. FINDINGS: Semi upright AP view of the abdomen. Medical devices: Enteric suction tube tip and side port project over the stomach. Procedure changes project over the right hemiabdomen. Small bowel dilatation has mildly improved since previous KUB, largest loops measure approximately 3.4 cm, previously 4.3 cm. 1. Enteric suction tube tip and side port project over the stomach. 2. Mildly improved small bowel dilatation, with mild residual dilatation. Workstation ID: [id number] Additional Data Reviewed: Orders: 1. Neuroendocrine tumor No orders of the defined types were placed in this encounter. E/M Codin documented in this encounter [facility] 01-07-2023 History of Presen t illness Narrative Discharge instructions given and reviewed with patient and daughter. Patient and daughter verbalized understanding. Patient assisted off unit with a wheelchair to private vehicle. Patient took belongings at discharge. Report called to Valentina in [place]. Images from the original note were not included. Care Management Progress Note Date: 01/07/2023 Time: 11:06 AM Patient Name: Merlyn Perez Date of : 1940 Discharge Plan: D/C Disposition: Rehab Facility Agency/Destination: Other ([facility]) Post-Acute Patient Choice 1: [facility] Post-Acute Patient Choice 2: [facility] Options Reviewed: Possible expense, Explained services/benefits Reason for Choice: Patient/Family preference Regulatory Documentation: Medicare IM Regulatory Documentation Status: Certified Patient Paper Copy: Patient received paper copy Discharging Transportation Plan: Transportation Type: Auto Discharge Plan Status: Informed by attending pt is medically ready for discharge today. Spoke with family and they will transport at 3pm to [facility]. . . Spoke with Ani siddiqui phone [phone] for [facility] and aware of today's discharge and transport time by family. Will fax DOD bundle to [phone] Nurse aware to call report to [phone] and fax they paper work to [phone]. [facility] Request Status: Selected Selected Services: Inpatient Rehabilitation Address: [address] [place] [address]. [place] [address] TPN is off and PICC being removed prior to dc. Updated pt and family in room. No covid needed. [facility] IPR signed. Addendum 12noon DOD faxed to [phone] and also to [phone] per Ani siddiqui request. . Date: 01/07/2023 Patient name: Merlyn Perez Date Of : 1940 Admit Date: 12/17/2022 Back pain Assessment & Plan Reason For Hospitalization: ICD-10 M54.9 Merlyn Perez presented 12/17/2022 a 82 y.o. female with a history of HTN and recent CVA 11/27/22 who presented to [facility] 12/14/22 and again 12/16/22 for recurrent abdominal pain. OSH CT C/A/P 12/17/22 noted enlarged mediastinal LNs with 5 mm RLL pulmonary nodule and RLQ 1.7x1.6cm mass abbutting the distal small bowel. Transferred to [facility] 12/17/2022 for SurgOnc evaluation. 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 Course complicated 12/25 with ileus s/p NGT. Assessment: Merlyn was sitting up in bed eating breakfast and appeared to have a good appetite. She does not like the peach Boost and wishes they would stop bringing it to her, bates is ok. Would prefer other flavors if able. Pain woke her up again last night. Continues to feel that [place] is helpful. I discussed weaning [place] to Q 6 H PRN, however, pt feels that she utilizes it between Q 5-5.5 hours and would like to continue to have it available Q 4 H PRN. Wants to keep muscle relaxer scheduled. Want to continue to wean Gabapentin as able, discussed weaning to 100 mg TID on Wednesday 01/10. Continues to feel bloated, has gas pain as well as aching abdominal pain that radiates around to her back on both sides of her waistline. States she has muscle soreness under both breasts when she pulls herself up. Previous Note Pt expresses that she does not like opiate pain medications and has concerns about addiction. Had undesirable side effects with IV Dilaudid. Morphine made her itch, but did take the edge off. Using Benadryl with the IV Morphine caused similar side effect as Dilaudid. Lidocaine patch is not helpful and would like to discontinue. Plan: Continue [place] 5/325 mg PO Q 4 H PRN, caution sedation Continue Tylenol 650 mg PO Q 4 H PRN, caution with [place] Continue Robaxin 500 mg PO Q 8 H, caution sedation Continue Gabapentin 200 mg PO Q 8 H, pt wanting to further wean as able, plan 100 mg TID on 01/10 Discontinued/Completed Therapies Lidocaine patch, pt states not helpful Gabapentin 100 mg PO TID, discontinued per surgery at pt NPO Robaxin 1 gram IV Q 8 H x 48 hours, complete Oxycodone 5 mg SL Q 4 H PRN, rotated to oral Morphine due to drowsiness oral Morphine 10 mg SL Q 4 H PRN, caused agitation and confusion Oxycodone 5 mg SL Q 4 H PRN, rotate to [place] in hopes of less side effects Robaxin 1 gram IVPB Q 8 H x 3 days, complete OFIRMEV 1,000 mg IVPB Q 8 H, taking oral Morphine 1-2 mg IV Q 4 H PRN, not utilizing in over 48 hours Acute Findings/Imaging/Procedures XR Abdomen AP 12/27/2022 IMPRESSION: 1. Scattered contrast in the colon extending into the rectum. 2. Several gas distended small bowel loops may reflect ileus or partial small bowel obstruction, grossly unchanged. 3. NG tube side port at the level of the diaphragm. This should be advanced at least 3 cm and then be rechecked. CT Abdomen Pelvis With Contrast 12/26/2022 IMPRESSION: 1. Long segment of thick-walled edematous distal small bowel to the ileocolonic anastomosis. This finding is nonspecific at this time, although the possibly of early ischemia should be considered. There is no bowel pneumatosis or signs of bowel perforation. 2. Mildly dilated small bowel proximal to the thickened segment. The oral contrast given is present throughout the small bowel to the anastomosis. 3. Moderate scattered free fluid within the abdomen and pelvis and mild mesenteric edema. Free fluid is water attenuation with the exception of a small amount of layering debris or blood products in the posterior peritoneal cavity of the pelvis. 4. Nasogastric tube tip position within the gastric body. Stomach is nondistended. 5. No acute abnormality of the solid organs. 6. Additional stable nonemergent findings as above. Disposition/Ongoing Plan: TBD Substance Use History: Tobacco Use: Denies EtOH Use: Yes, 1-2 glasses of white wine 3-4 times per month THC/CBD Use: Denies Illicit Substance Use: Denies Obtain/Use Medications not prescribed to you: Denies OARRS Reviewed: None reported Chief Complaint/Reason for Visit: 1. Pulmonary nodule 2. Abdominal pain, unspecified abdominal location 3. Abdominal mass, unspecified abdominal location 4. Colonic mass History of Present Illness: Merlyn Perez is a 82 y.o. y/o female presenting 12/17/2022 who presented to [facility] 12/14/22 and again 12/16/22 for recurrent abdominal pain. OSH CT C/A/P 12/17/22 noted enlarged mediastinal LNs with 5 mm RLL pulmonary nodule and RLQ 1.7x1.6cm mass abbutting the distal small bowel. Transferred to [facility] 12/17/2022 for SurgOnc evaluation. 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 Course complicated 12/25 with ileus s/p NGT. During rounding visit 01/07/2023 Merlyn was sitting up in bed eating breakfast, daughter present. Merlyn is pleasant, awake, alert, oriented and in NAD. Continues to feel that [place] and muscle relaxer are helpful for abdominal pain. Continues to have abdominal distention. Does not feel that she can wean [place] to Q 6 H just yet as she uses it about every 5-5.5 hours. Pain woke her up in the night, again. Today states she has muscle soreness under both breasts when she pulls herself up. Will continue to reassess and make changes as needed. Denies side effects/sedation on current regimen. History: Past Medical History: Diagnosis Date Hypertension Stroke (HCC) Past Surgical History: Procedure Laterality Date COLECTOMY LAPAROSCOPIC RIGHT N/A 12/23/2022 Procedure: LAPAROSCOPIC RIGHT COLECTOMY; Surgeon: Kell Deras MD; Location: [facility] Main OR; Service: General Surgery COLONOSCOPY N/A 12/20/2022 Procedure: COLONOSCOPY; Surgeon: Storm Byers MD; Location: [facility] Endo; Service: Gastroenterology EGD N/A 12/20/2022 Procedure: ESOPHAGOGASTRODUODENOSCOPY; Surgeon: Storm Byers MD; Location: [facility] Endo; Service: Gastroenterology History reviewed. No pertinent family history. Social History Socioeconomic History Marital status: Tobacco Use Smoking status: Never Passive exposure: Past Smokeless tobacco: Never Vaping Use Vaping status: Never Used Passive vaping exposure: Yes Substance and Sexual Activity Alcohol use: Not Currently Drug use: Never Allergy Information: I have reviewed the patient's allergies. Amlodipine Home Medications: Outpatient Medications as of 01/07/2023 Medication Sig amLODIPine (NORVASC) 2.5 MG tablet Take 1 (one) tablet (2.5 mg total) by mouth daily . aspirin 81 mg chewable tablet Chew and Swallow 1 (one) tablet (81 mg total) . atenoloL (TENORMIN) 50 MG tablet Take 1.5 (one and a half) tablets (75 mg total) by mouth daily . calcium carbonate (TUMS) 200 mg calcium (500 mg) chewable tablet Chew and Swallow 1 (one) tablet (500 mg total) 3 (three) times a day . clopidogreL (PLAVIX) 75 mg tablet Take 1 (one) tablet (75 mg total) by mouth daily . furosemide (LASIX) 20 MG tablet Take 1 (one) tablet (20 mg total) by mouth daily . lisinopriL (PRINIVIL,ZESTRIL) 20 MG tablet Take 1 (one) tablet (20 mg total) by mouth 2 (two) times a day . omeprazole (PRILOSEC) 40 MG capsule Take 1 (one) capsule (40 mg total) by mouth daily . Review of Systems: The following system(s) were reviewed and pertinent findings noted: All other systems reviewed and negative other than HPI Physical Examination: Vital Signs: BP 137/70 Pulse (!) 101 Temp 97.3 F (36.3 C) (Oral) Resp 16 Ht 5' 3 Wt 62.2 kg (137 lb 2 oz) SpO2 97% BMI 24.29 kg/m General: Awake/Alert, cooperative, no distress, appears stated age Head: Normocephalic, without obvious abnormality, atraumatic Eyes: Conjunctiva/corneas clear, EOM intact Throat: Lips, mucosa, and tongue normal; teeth and gums normal Neck: Symmetrical, trachea midline Back: Symmetric, no obvious curvature Lungs: Respirations unlabored,normal respiratory effort Chest Wall: No tenderness or deformity Cardiovascular: Regular rate Genitourinary Not examined Abdomen: Distended Skin: Skin color wnl, no rashes or lesions Musculoskeletal: ZARAGOZA x 4, no joint edema Neurologic: Oriented, follows commands, gross strength and sensation intact Psych: Mood and affect appropriate Intake/Output last 3 shifts: I/O last 3 completed shifts: In: - Out: 200 [Urine:200] Medications: Scheduled Meds: aspirin 81 mg Oral Daily bisacodyL 10 mg Rectal Daily clopidogreL 75 mg Oral Daily enoxaparin (LOVENOX) injection 40 mg Subcutaneous Daily gabapentin 200 mg Oral Q8H JOSH lisinopriL 20 mg Oral Daily with lunch methocarbamoL 500 mg Oral Q8H JOSH metoprolol tartrate 25 mg Oral BID pantoprazole 40 mg Oral Daily simethicone 80 mg Oral Q6H sodium chloride (PF) 10 mL Intracatheter Q8H JOSH sodium chloride (PF) 5 mL Intravenous Q8H JOSH Continuous Infusions: sodium chloride 0.9 % 10 mL/hr (01/03/23 0215) PRN Meds: acetaminophen, alteplase, aluminum-magnesium hydroxide-simethicone, benzonatate, diphenhydrAMINE-zinc acetate, guaiFENesin, hydrALAZINE, HYDROcodone-acetaminophen, labetalol, melatonin, nalOXone AND Notify physician AND naloxone, ondansetron OR ondansetron, sodium chloride (PF), Saline lock IV AND sodium chloride (PF) AND sodium chloride (PF) AND sodium chloride 0.9 % Laboratory and Additional Data Reviewed: Laboratory 01/07/23 Microbiology 01/07/23 Pathology 01/07/23 Radiology 01/07/23 Cardiology 01/07/23 Medications 01/07/23 Transcriptions 01/07/23 Drugs of Abuse 01/07/23 Assessment Detail: The total time spent for this visit was 25 minutes. Greater than 50% of the time was spent in counseling and coordination of care regarding pain control and plan Please note that plan to help manage symptoms will include maximizing adjunctive agents and developing a multi-modal treatment plan. If opiate based medications are being used, we have talked about the risk and benefits of using this class of medication. Discussed with patient that there is a risk that opioid addiction could occur, meaning that he/she might become psychologically dependent on the medication and also discussed possible side effects/adverse events associated with narcotics Goal will be to use opiates at lowest effective doses for shortest period of time to help manage acute pain Discussed with Merlyn Perez about realistic expectation surrounding pain control- as being pain free is unlikely Discussed safety is paramount while trying to keep them as comfortable as possible Surgical Oncology Daily Progress Note Patient Name: Merlyn Perez MR #: [id number] : 1940 Assessment and Plan: 82 y.o. female w/ PMHx of HTN, HLD, anxiety/depression, asthma, GERD, recent admission for CVA (11/27/2022) on Plavix, w/ hx of R frontal, parietal, and L temporal infarctions, h/o CCY who presented to [facility] on 12/17/2022 as transfer from [facility] with RLQ back pain, concern for mass. CT A/P w/ IV contrast (12/16/2022): RLQ mass in distal small bowel exophytic appearing 1.7 x 1.6 cm w/ possible trace amount of blood in lumen, adjacent nodule in RLQ suspicious for reactive/metastatic LN, multiple small reactive LNs in RP and mesentery Terminal ileum Neuroendocrine tumor Recent CVA HTN - s/p l/s R hemicolectomy 12/23 - path - well diff neuroendocrine Grade 1 tumor, neg margins, +03/22 LN, pT2N1 - ASA/plavix resumed - Regular diet, protein supplementation per RD - prn pain and nausea control - OOB/IS/AAT - DVT PPX: Lovenox, SCDs - GI PPX: Protonix - Dispo planning: IPR, bed ready today Subjective: No nausea vomiting. Still having some gas pain. Otherwise comfortable. Objective: Vital Signs BP 132/76 (BP Location: Right arm, Patient Position: Sitting) Pulse 92 Temp 97.6 F (36.4 C) (Oral) Resp 14 Ht 5' 3 Wt 62.9 kg (138 lb 10.7 oz) SpO2 96% BMI 24.56 kg/m Constitutional NAD Head Normocephalic, atraumatic Ears Grossly normal hearing Eyes EOMI Neck Trachea midline Cardiovascular HDS Chest Non-labored breathing, equal chest rise Abdomen Soft, mild diffuse TTP; mildly distended; no peritoneal signs, incisions w exofin c/d/I Extremities ZARAGOZA Skin Warm, dry, intact Neurologic: No focal deficits Laboratory Studies: Recent laboratory studies reviewed CBC: Results from last 7 days Lab Units 01/07/23423 WBC K/mcL 3.11* HGB g/dL 9.7* HCT % 30.4* PLT K/mcL 155 Results from last 7 days Lab Units 01/07/2342301/06/233 01/05/23 0324 HGB g/dL 9.7* 9.9* 10.8* Chem: Results from last 7 days Lab Units 01/07/2342301/04/23 0411 01/03/23 0415 SODIUM mmol/L 141 < > 137 POTASSIUM mmol/L 3.7 < > 3.8 CHLORIDE mmol/L 104 < > 101 BUN mg/dL 19 < > 14 CREATININE mg/dL 0.52* < > 0.40* CALCIUM mg/dL 8.7 < > 8.6 TOTAL PROTEIN g/dL -- -- 6.4 ALK PHOS U/L -- -- 185* ALT U/L -- -- 75* AST U/L -- -- 82* GLUCOSE mg/dL 109* < > 111* < > = values in this interval not displayed. Results from last 7 days Lab Units 01/07/2342301/06/233 01/05/23 0324 CREATININE mg/dL 0.52* 0.49* 0.39* LFT's: Results from last 7 days Lab Units 01/03/23 0415 ALK PHOS U/L 185* BILIRUBIN TOTAL mg/dL 0.4 TOTAL PROTEIN g/dL 6.4 AST U/L 82* ALT U/L 75* Diagnostic Imaging: Recent diagnostic imaging/reports reviewed Associated attestation - Kell Deras MD - 01/07/2023 9:59 AM EDT I have reviewed the notes, assessments, and/or procedures performed by resident/KRISTEN, I concur with her/his documentation with the following additions/addendums: I have personally seen and examined the patient on rounds. Patient having intermittent cramping but improved with medications. Tolerated diet. Ready for discharge today. We will follow-up outpatient. All questions answered to the patient and the daughter satisfaction. [employer] Inpatient Progress Note 01/06/2023 Merlyn Perez 1940 [id number] Assessment/Plan: Merlyn Perez is a 82 y.o. female with a history of HTN and recent CVA 11/27/22 who presented to [facility] 12/14/22 and again 12/16/22 for recurrent abdominal pain. OSH CT C/A/P 12/17/22 noted RLQ mass and enlarged mediastinal LNs, RLL pulmonary nodule. Transferred to [facility] 12/17/2022 for SurgOnc evaluation. 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 Course complicated with ileus. Neuroendocrine Tumor: Presented as above. C-scope 12/20/[address] A&P 12/21/22 concerned for RLQ malignancy s/p right colectomy with terminal ileum resection 12/23/[address] Deras. 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 PICC placed for TPN. Pain control, Pain Management following. Monitor respiratory status with oral narcotics. Improvement in symptoms and TPN stopped 01/05/23. Ileus: confirmed on KUB 12/25/22, s/p NGT 12/25 with good output, had to be replaced 12/[address] A&P 12/26 with edematous bowel but no perforation, KUB 12/27 with ileus vs pSBO, CT A/P 12/30/22 with evolving ileus. Improved. NG removed 01/01/23. SurgOnc following. Undergoing trial of diet. TPN stopped. Leukocytosis: reactive to surgery. Afebrile, no infectious symptoms, resolved. Epigastric Pain: GI followed, s/p negative EGD 12/20/22. Acute Metabolic Encephalopathy: transient, likely with baseline cognitive impairment and receiving Dilaudid. Resolved. Lymphadenopathy: noted on OSH CT C/A/P as mentioned above. Pulmonary followed, follow-up CT in [address] A&P 12/21 with 14mm LLL nodule along with several non-specific nodules. Outpatient follow-up. Recent CVA: with residual right facial droop, mild dysarthria. Hospitalized 11/27/22. Neurology followed, OSH MRI brain reviewed, tiny stroke burden. Restarted.Follow-up outpatient with [facility] (AVS updated). HTN Urgency: per hx, amlodipine, atenolol, lisinopril and Lasix held given NPO status. On scheduled IV metoprolol and has PRNs. Pain control given this is the source of elevated BP. Uterine Prolapse: Follows with Dr. Hartley in [place]. PVR unremarkable this admission. Dr. Smiley (uro-nut sorter) declined pessary this admission, ok to follow up at home. May require intermittent straight cath if urinary retention noted. Code Status: full, discussed on admit. DVT Prophylaxis: Lovenox. Current living situation: home. Expected disposition: [facility] Estimated discharge date: 01/07/23 *Family updated bedside 01/06. Subjective: Patient tolerant of some diet yesterday then ate too much too quickly with mac and cheese, pulled pork, other foods last night and had some abd pain overnight without too much sleep. This morning is tired. Off TPN Discussed care with Daughter at bedside. I have reviewed labs, images, and garden consultant notes with surgery, cbc, bmp. Physical Exam: BP (!) 166/73 Pulse (!) 105 Temp 97.8 F (36.6 C) (Oral) Resp 18 Ht 5' 3 Wt 62.9 kg (138 lb 10.7 oz) SpO2 98% BMI 24.56 kg/m General: Mild distress due to pain. Eyes: EOMI. ENT: Neck supple. Cardiovascular: Regular rate. Respiratory: Clear to auscultation. Gastrointestinal: Soft, generalized tenderness, non-peritoneal. Genitourinary: No suprapubic tenderness. Musculoskeletal: No edema. Skin: Warm, dry. Neuro: Alert. Psych: Mood appropriate. Current Medications: aspirin 81 mg Oral Daily bisacodyL 10 mg Rectal Daily clopidogreL 75 mg Oral Daily enoxaparin (LOVENOX) injection 40 mg Subcutaneous Daily gabapentin 200 mg Oral Q8H JOSH methocarbamoL 500 mg Oral Q8H JOSH metoprolol tartrate 25 mg Oral BID pantoprazole 40 mg Intravenous Daily simethicone 80 mg Oral Q6H sodium chloride (PF) 10 mL Intracatheter Q8H JOSH sodium chloride (PF) 5 mL Intravenous Q8H JOSH Labs, Imaging and Studies reviewed: Results from last 7 days Lab Units 01/06/2331201/05/2332301/04/23410 WBC K/mcL 3.21* 3.93* 4.33* HGB g/dL 9.9* 10.8* 10.5* HCT % 31.6* 32.4* 32.8* PLT K/mcL 144* 125* 122* Results from last 7 days Lab Units 01/06/2331201/05/2332301/04/23410 SODIUM mmol/L 137 139 138 POTASSIUM mmol/L 3.9 4.5 4.0 CHLORIDE mmol/L 101 103 103 BICARB mmol/L 27 28 27 BUN mg/dL 23 18 18 CREATININE mg/dL 0.49* 0.39* 0.35* EGFR mL/min/1.73 m2 95 100 103 GLUCOSE mg/dL 100* 101* 126* CALCIUM mg/dL 8.7 9.0 8.9 PHOSPHORUS mg/dL 5.3* 4.0 3.9 Results from last 7 days Lab Units 01/03/23414 ALT U/L 75* AST U/L 82* ALK PHOS U/L 185* BILIRUBIN TOTAL mg/dL 0.4 Physical Therapy PHYSICAL THERAPY TREATMENT NOTE Skilled Therapy Needs After Discharge Anticipate Resolution of Current Assessment Limitations Including: Pain, Mechanical Barriers Are Skilled Therapy Services Needed After Discharge: Yes Intensity of Skilled Therapy: 5 to 7 days per week Anticipated Duration of Skilled Therapy: Duration 10 - 30 days DME Recommendation: To be determined at next level of care Rehab Potential: Good, For goals Outcomes Measures Prior Function - Basic Mobility Raw Score: 24 Points Prior Function - Basic Mobility % Impaired: 0% AM-PAC Basic Mobility Raw Score: 18 Points AM-PAC Basic Mobility % Impaired: 40.47% Activity Tolerance Activity Tolerance: Tolerates 30 min acitivty with multiple rests Therapy Precautions Orthotic Devices: No Weight Bearing Status: WFL General Rehab Precautions: Fall risk, Abdominal Balance Sitting Balance - Static: Stand by assist Loss of Balance - Sitting Static: posterior, inconsistent Sitting Balance - Dynamic: Stand by assist, Contact guard assist Loss of Balance - Sitting Dynamic: posterior Sitting Balance Treatment: weight shifting anterior, maintaining midline orientation, postural re-education Skilled Intervention Provided: verbal cues, tactile cues, visual cues, facilitation, patient education For: attention to task, balance recovery, efficient movement, midline orientation, necessary precautions, postural alignment, sequencing of movement, weight shifting Resulting in: improved activity tolerance, improved adherence to precautions, improved balance reactions, improved functional independence, improved safety, improved performance Standing Balance - Static: Contact guard assist Emergency Room Rn - Standing Static: wheeled walker Loss of Balance- Standing Static: multidirectional Standing Balance - Dynamic: Contact guard assist Emergency Room Rn - Standing Dynamic: wheeled walker Loss of Balance- Standing Dynamic: multidirectional Standing Balance Treatment: weight shifting anterior, maintaining midline, postural re-education, upright gaze Skilled Intervention Provided: verbal cues, tactile cues, facilitation, patient education For: balance recovery, efficient movement, midline orientation, necessary precautions, postural alignment, sequencing of movement, weight shifting Resulting in: improved activity tolerance, improved adherence to precautions, improved balance reactions, improved functional independence, improved performance, improved safety Bed Mobility Rolling: (pt was up in a chair upon arrival.) Transfers Sit to Stand: Contact guard assist Bed to Chair: Contact guard assist Emergency Room Rn: wheeled walker Skilled Intervention Provided: verbal cues, tactile cues, visual cues, facilitation, provided step by step instructions, patient education For: UE positioning, LE positioning, controlled descent, efficient movement, midline orientation, necessary precautions, postural alignment, proper body mechanics, safe use of AD and/or equipment, sequencing of movement, weight shifting Resulting in: improved activity tolerance, improved balance, improved functional independence, improved performance, improved safety Gait/Locomotion Gait Assistance: Contact guard assist, Minimal assist Assistive Device: wheeled walker Distance: 200 Feet Rest Breaks: Yes Rest Break Position: standing Rest Break Duration: 3mins Pattern: step through, R decreased step length, L decreased step length, over reliance on upper extremities, decreased larry (steps per minute) Weight Bearing Status: able to maintain Environment/Terrain: open/community environment, multiple distractions Stair Management Technique: one rail R, one rail L, alternating pattern, step-to pattern, forwards Stair Management Assistance: Contact guard assist, Minimal assist Skilled Intervention Provided: verbal cues, tactile cues, visual cues, facilitation, patient education For: attention to task, device management and safe use of device, gait sequence, gait technique, improved posture, efficient movement, energy conservation techniques, midline orientation, necessary precautions, postural alignment, weight shifting Resulting in: improved activity tolerance, improved adherence to precautions, improved awareness of gait impairments, improved efficiency, improved performance, improved safety Exercise Total Knee: x10 bilat Ankle Pumps: x10 bilat Hip Flexion: x0 bilat Long Arc Quad: x10 bilat Skilled Intervention Provided: verbal cues, tactile cues, visual cues, facilitation, patient education For: achieving full ROM as tolerated, frequency of exercise(s), necessary precautions, proper positioning of extremity, when to take rest breaks Resulting in: efficient movement, improved activity tolerance, improved functional strength/ROM, improved independence with HEP, improved performance Additional Treatment Details Reviewed walker management for safety and to prevent falls. Pt has unsteady gait and required step by step cues for foot placement.Pt required increased time during ambulation. Reviewed abdominal precautions. Home Living Obtained Home Living and PLOF info from: Patient, Patient s family member Lives With: Alone (Daughter able to assist) Type of Home: House Home Layout: One level, Laundry in basement, Stairs between floors (working on bringing laundry up to main level) Rails on inside stairs: 1 rail Number of stairs inside home: 12 Bathroom Shower/Tub: Tub/shower unit (pt showers or sits in tub to bathe) Bathroom Toilet: Standard Bathroom Equipment: (none) Bathroom Accessibility: Accessible Mobility Equipment: (none per pt) Additional Objective Details - Home Living: Daughter completes financial services representative, medication management (post CVA, prior to CVA, pt was independent w/ med management). Pt endorsing x1 fall recently Prior Level of Function Level of Sherman - Transfers/Ambulation/Mobility: Independent with household ambulation, Independent with functional transfers Level of [place] - ADLs: Independent Level of [place] - Homemaking: Independent Driving: Patient drives (pt's daughter assist (states has not been driving as much recently)) For complete objective data, detailed plan of care and patient education refer to: PT Evaluation flowsheet, PT Evaluation and Treatment flowsheet, PT Treatment flowsheet, patient Plan of Care, Plan of Care progress note, and Patient Education. This note stands as the current Discharge Summary upon patient discharge from the hospital or completion of Physical Therapy Plan of Care. Care Management Progress Note Date: 01/06/2023 Time: 9:24 AM Patient Name: Merlyn Perez Date of : 1940 Discharge Plan: D/C Disposition: Rehab Facility Post-Acute Patient Choice 1: [facility] Post-Acute Patient Choice 2: [facility] IPR Options Reviewed: Possible expense, Explained services/benefits Reason for Choice: Patient/Family preference Regulatory Documentation: Medicare IM Regulatory Documentation Status: Certified Patient Paper Copy: Patient received paper copy Discharging Transportation Plan: Transportation Type: Auto (daughter will provide transportation a DC) Discharge Plan Status: Potential for discharge tomorrow. Looking at [place] [facility]. Spoke with Ani siddiqui phone [phone] and updated SNF bundle sent fax [phone] Looking at possible discharge Tuesday. TPN is off. Updated pt and family in room. Family will transport. Addendum 115pm. Left VM with Ani siddiqui for [facility] to verify acceptance for tomorrow. Waiting for call back. Addendum 130pm> Spoke with Ani siddiqui from [place] and they can accept tomorrow. No covid needed. Amb IPR signed. Date: 01/06/2023 Patient name: Merlyn Perez Date Of : 1940 Admit Date: 12/17/2022 Back pain Assessment & Plan Reason For Hospitalization: ICD-10 M54.9 Merlyn Perez presented 12/17/2022 a 82 y.o. female with a history of HTN and recent CVA 11/27/22 who presented to [facility] 12/14/22 and again 12/16/22 for recurrent abdominal pain. OSH CT C/A/P 12/17/22 noted enlarged mediastinal LNs with 5 mm RLL pulmonary nodule and RLQ 1.7x1.6cm mass abbutting the distal small bowel. Transferred to [facility] 12/17/2022 for SurgOnc evaluation. 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 Course complicated 12/25 with ileus s/p NGT. Assessment: Merlyn just finished having a BM, states it was a pretty good amount. Pain tolerable currently, but states she had pain all night, feels like pain is related to not being able to expel gas per daughter or possibly because she ate more yesterday: pot roast, pork loin, mac and cheese, mashed potatoes. Pt continues to state she is bloated, causing achy pain as well as pain in the low back. Daughter states pt seems sensitive to light touch on various parts of her body, will say ouch if she touches her cheek, etc.... Pt not really able to elaborate on this feeling. Been walking in the hallway and daughter took her outside yesterday in the wheelchair. Daughter states pt was sensitive to going over bumps in the concrete. Pt notes that she does not like opiate pain medications and has concerns about addiction. Previous Note Pt reports right low back pain that radiates all the way around her waist that has been present since December 16. She is also reporting stomach bloating. States she hadn't eaten in 10 days and her electrolytes were off. She was put on IV Potassium and it caused muscle cramping, so was started on IVPB Robaxin, which was helpful. Pt expresses that she does not like opiate pain medications and has concerns about addiction. Had undesirable side effects with IV Dilaudid. Morphine made her itch, but did take the edge off. Using Benadryl with the IV Morphine caused similar side effect as Dilaudid. Lidocaine patch is not helpful and would like to discontinue. Feels that IV Tylenol is helpful as well as Gabapentin, but interested in spreading dose of Gabapentin out as it does cause some drowsiness. Plan: Continue [place] 5/325 mg PO Q 4 H PRN, caution sedation Continue Tylenol 650 mg PO Q 4 H PRN, caution with [place] Continue Robaxin 500 mg PO Q 8 H, caution sedation Continue Gabapentin 200 mg PO Q 8 H, pt wanting to further wean off Discontinued/Completed Therapies Lidocaine patch, pt states not helpful Gabapentin 100 mg PO TID, discontinued per surgery at pt NPO Robaxin 1 gram IV Q 8 H x 48 hours, complete Oxycodone 5 mg SL Q 4 H PRN, rotated to oral Morphine due to drowsiness oral Morphine 10 mg SL Q 4 H PRN, caused agitation and confusion Oxycodone 5 mg SL Q 4 H PRN, rotate to [place] in hopes of less side effects Robaxin 1 gram IVPB Q 8 H x 3 days, complete OFIRMEV 1,000 mg IVPB Q 8 H, taking oral Morphine 1-2 mg IV Q 4 H PRN, not utilizing in over 48 hours Acute Findings/Imaging/Procedures XR Abdomen AP 12/27/2022 IMPRESSION: 1. Scattered contrast in the colon extending into the rectum. 2. Several gas distended small bowel loops may reflect ileus or partial small bowel obstruction, grossly unchanged. 3. NG tube side port at the level of the diaphragm. This should be advanced at least 3 cm and then be rechecked. CT Abdomen Pelvis With Contrast 12/26/2022 IMPRESSION: 1. Long segment of thick-walled edematous distal small bowel to the ileocolonic anastomosis. This finding is nonspecific at this time, although the possibly of early ischemia should be considered. There is no bowel pneumatosis or signs of bowel perforation. 2. Mildly dilated small bowel proximal to the thickened segment. The oral contrast given is present throughout the small bowel to the anastomosis. 3. Moderate scattered free fluid within the abdomen and pelvis and mild mesenteric edema. Free fluid is water attenuation with the exception of a small amount of layering debris or blood products in the posterior peritoneal cavity of the pelvis. 4. Nasogastric tube tip position within the gastric body. Stomach is nondistended. 5. No acute abnormality of the solid organs. 6. Additional stable nonemergent findings as above. Disposition/Ongoing Plan: TBD Substance Use History: Tobacco Use: Denies EtOH Use: Yes, 1-2 glasses of white wine 3-4 times per month THC/CBD Use: Denies Illicit Substance Use: Denies Obtain/Use Medications not prescribed to you: Denies OARRS Reviewed: None reported Chief Complaint/Reason for Visit: 1. Pulmonary nodule 2. Abdominal pain, unspecified abdominal location 3. Abdominal mass, unspecified abdominal location 4. Colonic mass History of Present Illness: Merlyn Perez is a 82 y.o. y/o female presenting 12/17/2022 who presented to [facility] 12/14/22 and again 12/16/22 for recurrent abdominal pain. OSH CT C/A/P 12/17/22 noted enlarged mediastinal LNs with 5 mm RLL pulmonary nodule and RLQ 1.7x1.6cm mass abbutting the distal small bowel. Transferred to [facility] 12/17/2022 for SurgOnc evaluation. 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 Course complicated 12/25 with ileus s/p NGT. During rounding visit 01/06/2023 Merlyn was in the bathroom having a BM. Daughter at the bedside. Merlyn is awake, alert, oriented and in NAD. She ambulated out of the bathroom without difficulty and stood and talked to me in the room throughout the entire interaction for several minutes. Reports that she had pain all last night, but pain is tolerable currently. She feels that her achy abdominal pain is related to not being able to expel gas, continues to have bloating. Ate a lot more yesterday, including meat and potatoes, stating she had a good appetite. Reporting low back pain at times, stating that her low back feels warm to the touch. Daughter states patient is sensitive when she touches her skin and was sensitive to going over bumps in the wheelchair yesterday when she went outside, pt was not able to describe or elaborate on the sensitivity to touch. Will continue to reassess and make changes as needed. Denies side effects/sedation on current regimen. History: Past Medical History: Diagnosis Date Hypertension Stroke (HCC) Past Surgical History: Procedure Laterality Date COLECTOMY LAPAROSCOPIC RIGHT N/A 12/23/2022 Procedure: LAPAROSCOPIC RIGHT COLECTOMY; Surgeon: Kell Deras MD; Location: [facility] Main OR; Service: General Surgery COLONOSCOPY N/A 12/20/2022 Procedure: COLONOSCOPY; Surgeon: Storm Byers MD; Location: [facility] Endo; Service: Gastroenterology EGD N/A 12/20/2022 Procedure: ESOPHAGOGASTRODUODENOSCOPY; Surgeon: Storm Byers MD; Location: [facility] Endo; Service: Gastroenterology History reviewed. No pertinent family history. Social History Socioeconomic History Marital status: Tobacco Use Smoking status: Never Passive exposure: Past Smokeless tobacco: Never Vaping Use Vaping status: Never Used Passive vaping exposure: Yes Substance and Sexual Activity Alcohol use: Not Currently Drug use: Never Allergy Information: I have reviewed the patient's allergies. Amlodipine Home Medications: Outpatient Medications as of 01/06/2023 Medication Sig amLODIPine (NORVASC) 2.5 MG tablet Take 1 (one) tablet (2.5 mg total) by mouth daily . aspirin 81 mg chewable tablet Chew and Swallow 1 (one) tablet (81 mg total) . atenoloL (TENORMIN) 50 MG tablet Take 1.5 (one and a half) tablets (75 mg total) by mouth daily . calcium carbonate (TUMS) 200 mg calcium (500 mg) chewable tablet Chew and Swallow 1 (one) tablet (500 mg total) 3 (three) times a day . clopidogreL (PLAVIX) 75 mg tablet Take 1 (one) tablet (75 mg total) by mouth daily . furosemide (LASIX) 20 MG tablet Take 1 (one) tablet (20 mg total) by mouth daily . lisinopriL (PRINIVIL,ZESTRIL) 20 MG tablet Take 1 (one) tablet (20 mg total) by mouth 2 (two) times a day . omeprazole (PRILOSEC) 40 MG capsule Take 1 (one) capsule (40 mg total) by mouth daily . Review of Systems: The following system(s) were reviewed and pertinent findings noted: All other systems reviewed and negative other than HPI Physical Examination: Vital Signs: BP (!) 145/74 (BP Location: Right arm, Patient Position: Lying) Pulse 97 Temp 97.5 F (36.4 C) (Oral) Resp 14 Ht 5' 3 Wt 62.9 kg (138 lb 10.7 oz) SpO2 97% BMI 24.56 kg/m General: Awake/Alert, cooperative, no distress, appears stated age Head: Normocephalic, without obvious abnormality, atraumatic Eyes: Conjunctiva/corneas clear, EOM intact Throat: Lips, mucosa, and tongue normal; teeth and gums normal Neck: Symmetrical, trachea midline Back: Symmetric, no obvious curvature Lungs: Respirations unlabored,normal respiratory effort Chest Wall: No tenderness or deformity Cardiovascular: Regular rate Genitourinary Not examined Abdomen: Distended Skin: Skin color wnl, no rashes or lesions Musculoskeletal: ZARAGOZA x 4, no joint edema Neurologic: Oriented, follows commands, gross strength and sensation intact Psych: Mood and affect appropriate Intake/Output last 3 shifts: No intake/output data recorded. Medications: Scheduled Meds: aspirin 81 mg Oral Daily bisacodyL 10 mg Rectal Daily clopidogreL 75 mg Oral Daily enoxaparin (LOVENOX) injection 40 mg Subcutaneous Daily gabapentin 200 mg Oral Q8H JOSH methocarbamoL 500 mg Oral Q8H JOSH metoprolol tartrate 25 mg Oral BID pantoprazole 40 mg Intravenous Daily simethicone 80 mg Oral Q6H sodium chloride (PF) 10 mL Intracatheter Q8H JOSH sodium chloride (PF) 5 mL Intravenous Q8H JOSH Continuous Infusions: sodium chloride 0.9 % 10 mL/hr (01/03/23 0215) PRN Meds: acetaminophen, alteplase, aluminum-magnesium hydroxide-simethicone, benzonatate, diphenhydrAMINE-zinc acetate, guaiFENesin, hydrALAZINE, HYDROcodone-acetaminophen, labetalol, melatonin, nalOXone AND Notify physician AND naloxone, ondansetron OR ondansetron, sodium chloride (PF), Saline lock IV AND sodium chloride (PF) AND sodium chloride (PF) AND sodium chloride 0.9 % Laboratory and Additional Data Reviewed: Laboratory 01/06/23 Microbiology 01/06/23 Pathology 01/06/23 Radiology 01/06/23 Cardiology 01/06/23 Medications 01/06/23 Transcriptions 01/06/23 Drugs of Abuse 01/06/23 Assessment Detail: The total time spent for this visit was 25 minutes. Greater than 50% of the time was spent in counseling and coordination of care regarding pain control and plan Please note that plan to help manage symptoms will include maximizing adjunctive agents and developing a multi-modal treatment plan. If opiate based medications are being used, we have talked about the risk and benefits of using this class of medication. Discussed with patient that there is a risk that opioid addiction could occur, meaning that he/she might become psychologically dependent on the medication and also discussed possible side effects/adverse events associated with narcotics Goal will be to use opiates at lowest effective doses for shortest period of time to help manage acute pain Discussed with Merlyn Perez about realistic expectation surrounding pain control- as being pain free is unlikely Discussed safety is paramount while trying to keep them as comfortable as possible Surgical Oncology Daily Progress Note Patient Name: Merlyn Perez MR #: [id number] : 1940 Assessment and Plan: 82 y.o. female w/ PMHx of HTN, HLD, anxiety/depression, asthma, GERD, recent admission for CVA (11/27/2022) on Plavix, w/ hx of R frontal, parietal, and L temporal infarctions, h/o CCY who presented to [facility] on 12/17/2022 as transfer from [facility] with RLQ back pain, concern for mass. CT A/P w/ IV contrast (12/16/2022): RLQ mass in distal small bowel exophytic appearing 1.7 x 1.6 cm w/ possible trace amount of blood in lumen, adjacent nodule in RLQ suspicious for reactive/metastatic LN, multiple small reactive LNs in RP and mesentery Terminal ileum Neuroendocrine tumor Recent CVA HTN - s/p l/s R hemicolectomy 12/23 - path - well diff neuroendocrine Grade 1 tumor, neg margins, +03/22 LN, pT2N1 - restart ASA/plavix - Regular diet, protein supplementation per RD - weaned off TPN 01/05 - prn pain and nausea control - OOB/IS/AAT - DVT PPX: Lovenox, SCDs - GI PPX: Protonix - Dispo planning: SNF- anticipate discharge today or tomorrow - D/w Dr. Deras Subjective: Tolerated 70% of her regular food. No nausea vomiting. Still having some gas pain. Otherwise comfortable. Objective: Vital Signs BP (!) 147/80 Comment: RN Notified Pulse (!) 100 Comment: RN Notified Temp 97.7 F (36.5 C) Resp 16 Ht 5' 3 Wt 62.9 kg (138 lb 10.7 oz) SpO2 96% BMI 24.56 kg/m Constitutional NAD Head Normocephalic, atraumatic Ears Grossly normal hearing Eyes EOMI Neck Trachea midline Cardiovascular HDS Chest Non-labored breathing, equal chest rise Abdomen Soft, mild diffuse TTP; mildly distended; no peritoneal signs, incisions w exofin c/d/I Extremities ZARAGOZA Skin Warm, dry, intact Neurologic: No focal deficits Laboratory Studies: Recent laboratory studies reviewed CBC: Results from last 7 days Lab Units 01/06/23312 WBC K/mcL 3.21* HGB g/dL 9.9* HCT % 31.6* PLT K/mcL 144* Results from last 7 days Lab Units 01/06/2331201/05/2332301/04/23410 HGB g/dL 9.9* 10.8* 10.5* Chem: Results from last 7 days Lab Units 01/06/2331201/04/2341001/03/23414 SODIUM mmol/L 137 < > 137 POTASSIUM mmol/L 3.9 < > 3.8 CHLORIDE mmol/L 101 < > 101 BUN mg/dL 23 < > 14 CREATININE mg/dL 0.49* < > 0.40* CALCIUM mg/dL 8.7 < > 8.6 TOTAL PROTEIN g/dL -- -- 6.4 ALK PHOS U/L -- -- 185* ALT U/L -- -- 75* AST U/L -- -- 82* GLUCOSE mg/dL 100* < > 111* < > = values in this interval not displayed. Results from last 7 days Lab Units 01/06/2331201/05/2332301/04/23410 CREATININE mg/dL 0.49* 0.39* 0.35* LFT's: Results from last 7 days Lab Units 01/03/23414 ALK PHOS U/L 185* BILIRUBIN TOTAL mg/dL 0.4 TOTAL PROTEIN g/dL 6.4 AST U/L 82* ALT U/L 75* Diagnostic Imaging: Recent diagnostic imaging/reports reviewed Associated attestation - Kell Deras MD - 01/06/2023 2:46 PM EDT I have reviewed the notes, assessments, and/or procedures performed by resident/KRISTEN, I concur with her/his documentation with the following additions/addendums: I have personally seen and examined the patient on rounds. Doing better. Had some bloating with her large meals yesterday but better today. Abd soft, incisions well healing. Minimally tender. Continue diet. Working on dispo. Ok to resume asa/plavix. [facility] 01/05/2023 Merlyn Perez 1940 [id number] Assessment/Plan: Merlyn Perez is a 82 y.o. female with a history of HTN and recent CVA 11/27/22 who presented to [facility] 12/14/22 and again 12/16/22 for recurrent abdominal pain. OSH CT C/A/P 12/17/22 noted RLQ mass and enlarged mediastinal LNs, RLL pulmonary nodule. Transferred to [facility] 12/17/2022 for SurgOnc evaluation. 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 Course complicated with ileus. Neuroendocrine Tumor: Presented as above. C-scope 12/20/[address] non-[address]. CT A&P 12/21/22 concerned for RLQ malignancy s/p right colectomy with terminal ileum resection 12/23/[address] Deras. 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 PICC placed for TPN. Pain control, Pain Management following. Monitor respiratory status with oral narcotics. Improvement in symptoms and began to wean from TPN. Ileus: confirmed on KUB 12/25/22, s/p NGT 12/25 with good output, had to be replaced 12/[address] A&P 12/26 with edematous bowel but no perforation, KUB 12/27 with ileus vs pSBO, CT A/P 12/30/22 with evolving ileus. NG removed 01/01/23. SurgOnc following. Undergoing trial of diet. Leukocytosis: reactive to surgery. Afebrile, no infectious symptoms, resolved. Epigastric Pain: GI followed, s/p negative EGD 12/20/22. Acute Metabolic Encephalopathy: transient, likely with baseline cognitive impairment and receiving Dilaudid. Resolved. Lymphadenopathy: noted on OSH CT C/A/P as mentioned above. Pulmonary followed, follow-up CT in [address] A&P 12/21 with 14mm LLL nodule along with several non-specific nodules. Outpatient follow-up. Recent CVA: with residual right facial droop, mild dysarthria. Hospitalized 11/27/22. Neurology followed, OSH MRI brain reviewed, tiny stroke burden. Restart AP as able and statin.Follow-up outpatient with [facility] (AVS updated). HTN Urgency: per hx, amlodipine, atenolol, lisinopril and Lasix held given NPO status. On scheduled IV metoprolol and has PRNs. Pain control given this is the source of elevated BP. Uterine Prolapse: Follows with Dr. Hartley in [place]. PVR unremarkable this admission. Dr. Smiley (uro-nut sorter) declined pessary this admission, ok to follow up at home. May require intermittent straight cath if urinary retention noted. Code Status: full, discussed on admit. DVT Prophylaxis: Lovenox. Current living situation: home. Expected disposition: SNF vs [place] [facility] Estimated discharge date: once ileus resolved, surgery clearance *Family updated bedside 01/04. Subjective: Patient tolerant of some diet overnight without n/v/ and pain including cream of wheat. Beginning to wean TPN. Discussed care with Daughter at bedside. I have reviewed labs, images, and garden consultant notes with surgery, cbc, bmp. Physical Exam: BP (!) 146/71 (BP Location: Right arm, Patient Position: Sitting) Pulse (!) 118 Temp 98.3 F (36.8 C) (Oral) Resp 16 Ht 5' 3 Wt 64.1 kg (141 lb 5 oz) SpO2 96% BMI 25.03 kg/m General: Mild distress due to pain. Eyes: EOMI. ENT: Neck supple. NGT in place. Cardiovascular: Regular rate. Respiratory: Clear to auscultation. Gastrointestinal: Soft, generalized tenderness, non-peritoneal. Genitourinary: No suprapubic tenderness. Musculoskeletal: No edema. Skin: Warm, dry. Neuro: Alert. Psych: Mood appropriate. Current Medications: bisacodyL 10 mg Rectal Daily enoxaparin (LOVENOX) injection 40 mg Subcutaneous Daily gabapentin 200 mg Oral Q8H JOSH methocarbamoL 500 mg Oral Q8H JOSH metoprolol tartrate 25 mg Oral BID pantoprazole 40 mg Intravenous Daily simethicone 80 mg Oral Q6H sodium chloride (PF) 10 mL Intracatheter Q8H JOSH sodium chloride (PF) 5 mL Intravenous Q8H JOSH Labs, Imaging and Studies reviewed: Results from last 7 days Lab Units 01/05/2332301/04/2341001/03/23414 WBC K/mcL 3.93* 4.33* 5.93 HGB g/dL 10.8* 10.5* 10.5* HCT % 32.4* 32.8* 33.4* PLT K/mcL 125* 122* 143* Results from last 7 days Lab Units 01/05/23 03201/04/2341001/03/23414 SODIUM mmol/L 139 138 137 POTASSIUM mmol/L 4.5 4.0 3.8 CHLORIDE mmol/L 103 103 101 BICARB mmol/L 28 27 27 BUN mg/dL 18 18 14 CREATININE mg/dL 0.39* 0.35* 0.40* EGFR mL/min/1.73 m2 100 103 100 GLUCOSE mg/dL 101* 126* 111* CALCIUM mg/dL 9.0 8.9 8.6 PHOSPHORUS mg/dL 4.0 3.9 3.7 Results from last 7 days Lab Units 01/03/23414 ALT U/L 75* AST U/L 82* ALK PHOS U/L 185* BILIRUBIN TOTAL mg/dL 0.4 Care Management Progress Note Date: 01/05/2023 Time: 2:56 PM Patient Name: Merlyn Perez Date of : 1940 Discharge Plan: D/C Disposition: Rehab Facility Post-Acute Patient Choice 1: [facility] Patient Choice 2: [facility] Options Reviewed: Possible expense, Explained services/benefits Reason for Choice: Patient/Family preference Regulatory Documentation: Medicare Regulatory Documentation Status: Certified Patient Paper Copy: Patient received paper copy Discharging Transportation Plan: Transportation Type: Auto (daughter will provide transportation a DC) Discharge Plan Status: Ongoing Patient discussed in MDR. NG dc'd, TPN cycled, diet advanced to low fiber, positive flatus, anticipate medically ready for dc soon. Update left on for [facility] Liamoo Law ([phone]). Care Management continues to follow. Nutrition Support Team Daily Progress Note Pertinent clinical information: Tolerated small amount of FLD per notes. Diet advanced to Low Fiber today. Multiple BMs documented. Current weight: 64.1 kg (141 lb 5 oz) Wt change since admit: -3.9kg (68kg) Current TPN prescription: Component Order Dose Admin Dose parenteral amino acid 15% no.6 15 % Solp 80 g 80 g dextrose 70% Solp 240 g 240 g fat emulsion (INTRALIPID,LIPOSYN) 20 % Emul 45 g 225 mL sterile water Solp 486.95 mL 486.95 mL sodium chloride (CONC 23.4%) 4 mEq/mL Solp 100 mEq 100 mEq potassium acetate 2 mEq/mL Soln 60 mEq 60 mEq potassium phosphate 3 mmol/mL Soln 20 mmol 20 mmol calcium gluconate 100 mg/mL (10%) Soln 8 mEq 1.7 g magnesium sulfate 4 mEq/mL (50 %) Soln 10 mEq 10 mEq mvi, adult no.4 with vit K 3,300 unit- 150 mcg/10 mL Soln 10 mL 10 mL trace elements Zn-Cu-Mn-Se 3 mg-0.3 mg-55 mcg-60 mcg/mL Soln 1 mL 1 mL TPN in 1680ml cycled over 12H provides 1586kcal and 80g protein. MIVF: none Pertinent labs: Recent Labs 01/03/23 0415 01/03/23 0629 01/04/23 0411 01/05/23 0324 NA 137 -- 138 139 K 3.8 -- 4.0 4.5 BICARB 27 -- 27 28 CL 101 -- 103 103 GLUCOSE 111* -- 126* 101* BUN 14 -- 18 18 CREATININE 0.40* -- 0.35* 0.39* MG 2.2 -- 2.2 2.2 PHOS 3.7 -- 3.9 4.0 RAUL -- 4.8 -- -- TRIG 163* -- -- -- Estimated Energy Needs Total Energy Estimated Needs: 3496-9858 Method for Estimating Needs: 22-25 kcals/kg IBW (BMI 24.9: 64kg) Total Protein Estimated Needs: 76-96g Method for Estimating Needs: 1.2-1.5g/kg IBW (BMI 24.9: 64kg) Fluid Needs Total Fluid Estimated Needs: 1517-6544 Method for Estimating Needs: 22-25ml/kg IBW (BMI 24.9: 64kg) TPN Changes: -Discontinue TPN per Surgery team. Confirmed with Dr. Nguyen. Nutrition support team will sign-off at this time. Please reconsult NST if TPN again indicated. Lakshmi Gonzalez RD, LD, [facility] Date: 01/05/2023 Patient name: Merlyn Perez Date Of : 1940 Admit Date: 12/17/2022 Back pain Assessment & Plan Reason For Hospitalization: ICD-10 M54.9 Merlyn Perez presented 12/17/2022 a 82 y.o. female with a history of HTN and recent CVA 11/27/22 who presented to [facility] 12/14/22 and again 12/16/22 for recurrent abdominal pain. OSH CT C/A/P 12/17/22 noted enlarged mediastinal LNs with 5 mm RLL pulmonary nodule and RLQ 1.7x1.6cm mass abbutting the distal small bowel. Transferred to [facility] 12/17/2022 for SurgOnc evaluation. 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 Course complicated 12/25 with ileus s/p NGT. Assessment: Merlyn was sitting in the recliner chair with her legs elevated. Appears slightly drowsy. Daughter present. Continues to have bloating and abdominal pain. Ate cream of wheat again today with juice and coffee. States her pain is more tolerable now when she utilizes the pain meds. States she has stomach pain that goes around both sides of her waist. [place] causes less drowsiness, which they appreciate. Daughter feels like the muscle relaxer is helpful and wants to keep scheduled, but would like to decrease the Gabapentin as pt is no longer having sciatica pain and it causes drowsiness. Had a large liquid BM yesterday after using a suppository. Has been ambulating a little bit in the hallway with the walker. Pt notes that she does not like opiate pain medications and has concerns about addiction. Previous Note Pt reports right low back pain that radiates all the way around her waist that has been present since December 16. She is also reporting stomach bloating. States she hadn't eaten in 10 days and her electrolytes were off. She was put on IV Potassium and it caused muscle cramping, so was started on IVPB Robaxin, which was helpful. Pt expresses that she does not like opiate pain medications and has concerns about addiction. Had undesirable side effects with IV Dilaudid. Morphine made her itch, but did take the edge off. Using Benadryl with the IV Morphine caused similar side effect as Dilaudid. Lidocaine patch is not helpful and would like to discontinue. Feels that IV Tylenol is helpful as well as Gabapentin, but interested in spreading dose of Gabapentin out as it does cause some drowsiness. Gabapentin was discontinued at this time per surgery as pt NPO. Plan: Continue [place] 5/325 mg PO Q 4 H PRN, caution sedation Continue Tylenol 650 mg PO Q 4 H PRN, caution with [place] Continue Robaxin 500 mg PO Q 8 H, caution sedation Decrease Gabapentin to 200 mg PO Q 8 H Discontinued/Completed Therapies Lidocaine patch, pt states not helpful Gabapentin 100 mg PO TID, discontinued per surgery at pt NPO Robaxin 1 gram IV Q 8 H x 48 hours, complete Oxycodone 5 mg SL Q 4 H PRN, rotated to oral Morphine due to drowsiness oral Morphine 10 mg SL Q 4 H PRN, caused agitation and confusion Oxycodone 5 mg SL Q 4 H PRN, rotate to [place] in hopes of less side effects Robaxin 1 gram IVPB Q 8 H x 3 days, complete OFIRMEV 1,000 mg IVPB Q 8 H, taking oral Morphine 1-2 mg IV Q 4 H PRN, not utilizing in over 48 hours Acute Findings/Imaging/Procedures XR Abdomen AP 12/27/2022 IMPRESSION: 1. Scattered contrast in the colon extending into the rectum. 2. Several gas distended small bowel loops may reflect ileus or partial small bowel obstruction, grossly unchanged. 3. NG tube side port at the level of the diaphragm. This should be advanced at least 3 cm and then be rechecked. CT Abdomen Pelvis With Contrast 12/26/2022 IMPRESSION: 1. Long segment of thick-walled edematous distal small bowel to the ileocolonic anastomosis. This finding is nonspecific at this time, although the possibly of early ischemia should be considered. There is no bowel pneumatosis or signs of bowel perforation. 2. Mildly dilated small bowel proximal to the thickened segment. The oral contrast given is present throughout the small bowel to the anastomosis. 3. Moderate scattered free fluid within the abdomen and pelvis and mild mesenteric edema. Free fluid is water attenuation with the exception of a small amount of layering debris or blood products in the posterior peritoneal cavity of the pelvis. 4. Nasogastric tube tip position within the gastric body. Stomach is nondistended. 5. No acute abnormality of the solid organs. 6. Additional stable nonemergent findings as above. Disposition/Ongoing Plan: TBD Substance Use History: Tobacco Use: Denies EtOH Use: Yes, 1-2 glasses of white wine 3-4 times per month THC/CBD Use: Denies Illicit Substance Use: Denies Obtain/Use Medications not prescribed to you: Denies OARRS Reviewed: None reported Chief Complaint/Reason for Visit: 1. Pulmonary nodule 2. Abdominal pain, unspecified abdominal location 3. Abdominal mass, unspecified abdominal location 4. Colonic mass History of Present Illness: Merlyn Perez is a 82 y.o. y/o female presenting 12/17/2022 who presented to [facility] 12/14/22 and again 12/16/22 for recurrent abdominal pain. OSH CT C/A/P 12/17/22 noted enlarged mediastinal LNs with 5 mm RLL pulmonary nodule and RLQ 1.7x1.6cm mass abbutting the distal small bowel. Transferred to [facility] 12/17/2022 for SurgOnc evaluation. 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 Course complicated 12/25 with ileus s/p NGT. During rounding visit 01/05/2023 Merlyn was sitting in the recliner chair with her feet elevated. Appears drowsy, but is alert, oriented and in NAD. Daughter present. Reports ongoing bloating and stomach pain that radiates around to both sides of her waistline, mostly tolerable with pain meds. Feels that Robaxin is the most helpful and wants to keep it scheduled. Sciatica has resolved and would like to start decreasing this as it contributes to drowsiness. [place] makes her less drowsy, which they appreciate. Had a large liquid BM yesterday after using a suppository. States she ate cream of wheat again today and had juice and coffee. Has been walking in hallway a little bit with the walker. Will continue to reassess and make changes as needed. Denies side effects/sedation on current regimen. History: Past Medical History: Diagnosis Date Hypertension Stroke (HCC) Past Surgical History: Procedure Laterality Date COLECTOMY LAPAROSCOPIC RIGHT N/A 12/23/2022 Procedure: LAPAROSCOPIC RIGHT COLECTOMY; Surgeon: Kell Deras MD; Location: [facility] Main OR; Service: General Surgery COLONOSCOPY N/A 12/20/2022 Procedure: COLONOSCOPY; Surgeon: Storm Byers MD; Location: [facility] Endo; Service: Gastroenterology EGD N/A 12/20/2022 Procedure: ESOPHAGOGASTRODUODENOSCOPY; Surgeon: Storm Byers MD; Location: [facility] Endo; Service: Gastroenterology History reviewed. No pertinent family history. Social History Socioeconomic History Marital status: Tobacco Use Smoking status: Never Passive exposure: Past Smokeless tobacco: Never Vaping Use Vaping status: Never Used Passive vaping exposure: Yes Substance and Sexual Activity Alcohol use: Not Currently Drug use: Never Allergy Information: I have reviewed the patient's allergies. Amlodipine Home Medications: Outpatient Medications as of 01/05/2023 Medication Sig amLODIPine (NORVASC) 2.5 MG tablet Take 1 (one) tablet (2.5 mg total) by mouth daily . aspirin 81 mg chewable tablet Chew and Swallow 1 (one) tablet (81 mg total) . atenoloL (TENORMIN) 50 MG tablet Take 1.5 (one and a half) tablets (75 mg total) by mouth daily . calcium carbonate (TUMS) 200 mg calcium (500 mg) chewable tablet Chew and Swallow 1 (one) tablet (500 mg total) 3 (three) times a day . clopidogreL (PLAVIX) 75 mg tablet Take 1 (one) tablet (75 mg total) by mouth daily . furosemide (LASIX) 20 MG tablet Take 1 (one) tablet (20 mg total) by mouth daily . lisinopriL (PRINIVIL,ZESTRIL) 20 MG tablet Take 1 (one) tablet (20 mg total) by mouth 2 (two) times a day . omeprazole (PRILOSEC) 40 MG capsule Take 1 (one) capsule (40 mg total) by mouth daily . Review of Systems: The following system(s) were reviewed and pertinent findings noted: All other systems reviewed and negative other than HPI Physical Examination: Vital Signs: BP 139/76 (BP Location: Right arm, Patient Position: Sitting) Pulse 99 Temp 98.8 F (37.1 C) (Oral) Resp 16 Ht 5' 3 Wt 64.1 kg (141 lb 5 oz) SpO2 96% BMI 25.03 kg/m General: Awake/Alert, cooperative, no distress, appears stated age Head: Normocephalic, without obvious abnormality, atraumatic Eyes: Conjunctiva/corneas clear, EOM intact Throat: Lips, mucosa, and tongue normal; teeth and gums normal Neck: Symmetrical, trachea midline Back: Symmetric, no obvious curvature Lungs: Respirations unlabored,normal respiratory effort Chest Wall: No tenderness or deformity Cardiovascular: Regular rate Genitourinary Not examined Abdomen: Distended Skin: Skin color wnl, no rashes or lesions Musculoskeletal: ZARAGOZA x 4, no joint edema Neurologic: Oriented, follows commands, gross strength and sensation intact Psych: Mood and affect appropriate Intake/Output last 3 shifts: I/O last 3 completed shifts: In: 100 [P.O.:100] Out: - Medications: Scheduled Meds: bisacodyL 10 mg Rectal Daily enoxaparin (LOVENOX) injection 40 mg Subcutaneous Daily gabapentin 200 mg Oral Q8H JOSH methocarbamoL 500 mg Oral Q8H JOSH metoprolol tartrate 25 mg Oral BID pantoprazole 40 mg Intravenous Daily simethicone 80 mg Oral Q6H sodium chloride (PF) 10 mL Intracatheter Q8H JOSH sodium chloride (PF) 5 mL Intravenous Q8H JOSH Continuous Infusions: Adult Cyclic TPN 76 mL/hr at 01/05/23 0909 dextrose sodium chloride 0.9 % 10 mL/hr (01/03/23 0215) PRN Meds: acetaminophen, alteplase, aluminum-magnesium hydroxide-simethicone, benzonatate, dextrose, diphenhydrAMINE-zinc acetate, guaiFENesin, hydrALAZINE, HYDROcodone-acetaminophen, labetalol, melatonin, nalOXone AND Notify physician AND naloxone, ondansetron OR ondansetron, sodium chloride (PF), Saline lock IV AND sodium chloride (PF) AND sodium chloride (PF) AND sodium chloride 0.9 % Laboratory and Additional Data Reviewed: Laboratory 01/05/23 Microbiology 01/05/23 Pathology 01/05/23 Radiology 01/05/23 Cardiology 01/05/23 Medications 01/05/23 Transcriptions 01/05/23 Drugs of Abuse 01/05/23 Assessment Detail: The total time spent for this visit was 25 minutes. Greater than 50% of the time was spent in counseling and coordination of care regarding pain control and plan Please note that plan to help manage symptoms will include maximizing adjunctive agents and developing a multi-modal treatment plan. If opiate based medications are being used, we have talked about the risk and benefits of using this class of medication. Discussed with patient that there is a risk that opioid addiction could occur, meaning that he/she might become psychologically dependent on the medication and also discussed possible side effects/adverse events associated with narcotics Goal will be to use opiates at lowest effective doses for shortest period of time to help manage acute pain Discussed with Merlyn Perez about realistic expectation surrounding pain control- as being pain free is unlikely Discussed safety is paramount while trying to keep them as comfortable as possible Surgical Oncology Daily Progress Note Patient Name: Merlyn Perez MR #: [id number] : 1940 Assessment and Plan: 82 y.o. female w/ PMHx of HTN, HLD, anxiety/depression, asthma, GERD, recent admission for CVA (11/27/2022) on Plavix, w/ hx of R frontal, parietal, and L temporal infarctions, h/o CCY who presented to [facility] on 12/17/2022 as transfer from [facility] with RLQ back pain, concern for mass. CT A/P w/ IV contrast (12/16/2022): RLQ mass in distal small bowel exophytic appearing 1.7 x 1.6 cm w/ possible trace amount of blood in lumen, adjacent nodule in RLQ suspicious for reactive/metastatic LN, multiple small reactive LNs in RP and mesentery Terminal ileum Neuroendocrine tumor Recent CVA HTN - s/p l/s R hemicolectomy 12/23 - path - well diff neuroendocrine Grade 1 tumor, neg margins, +03/22 LN, pT2N1 - hold ASA/plavix - FLD, appears to be tolerating - TPN, continue - prn pain and nausea control - OOB/IS/AAT - DVT PPX: Lovenox, SCDs - GI PPX: Protonix Subjective: Took small amount of FLD and tolerated. Still having some bloating and cramping but daughter thinks she is doing better Objective: Vital Signs BP 131/72 Pulse (!) 109 Temp 97.4 F (36.3 C) Resp 16 Ht 5' 3 Wt 68.4 kg (150 lb 12.7 oz) SpO2 93% BMI 26.71 kg/m Constitutional NAD Head Normocephalic, atraumatic Ears Grossly normal hearing Eyes EOMI Neck Trachea midline Cardiovascular HDS Chest Non-labored breathing, equal chest rise Abdomen Soft, mild diffuse TTP; mildly distended; no peritoneal signs, incisions w exofin c/d/I Extremities ZARAGOZA Skin Warm, dry, intact Neurologic: No focal deficits Laboratory Studies: Recent laboratory studies reviewed CBC: Results from last 7 days Lab Units 01/05/23323 WBC K/mcL 3.93* HGB g/dL 10.8* HCT % 32.4* PLT K/mcL 125* Results from last 7 days Lab Units 01/05/23 0324 01/04/2341001/03/23 0415 HGB g/dL 10.8* 10.5* 10.5* Chem: Results from last 7 days Lab Units 01/05/23 03201/04/2341001/03/23 0415 SODIUM mmol/L 139 < > 137 POTASSIUM mmol/L 4.5 < > 3.8 CHLORIDE mmol/L 103 < > 101 BUN mg/dL 18 < > 14 CREATININE mg/dL 0.39* < > 0.40* CALCIUM mg/dL 9.0 < > 8.6 TOTAL PROTEIN g/dL -- -- 6.4 ALK PHOS U/L -- -- 185* ALT U/L -- -- 75* AST U/L -- -- 82* GLUCOSE mg/dL 101* < > 111* < > = values in this interval not displayed. Results from last 7 days Lab Units 01/05/23 0324 01/04/23 0411 01/03/23 0415 CREATININE mg/dL 0.39* 0.35* 0.40* LFT's: Results from last 7 days Lab Units 01/03/23 0415 ALK PHOS U/L 185* BILIRUBIN TOTAL mg/dL 0.4 TOTAL PROTEIN g/dL 6.4 AST U/L 82* ALT U/L 75* Diagnostic Imaging: Recent diagnostic imaging/reports reviewed Associated attestation - Kell Deras MD - 01/05/2023 11:57 AM EDT I have reviewed the notes, assessments, and/or procedures performed by resident/KRISTEN, I concur with her/his documentation with the following additions/addendums: I have personally seen and examined the patient on rounds. Patient doing better. Tolerating for liquid diet. Having ongoing bowel function. Abdomen soft, nondistended, minimally tender. Advance diet to low fiber. Wean TPN off. Begin dispo planning, appears that therapy is recommending SNF. Updated daughter at the bedside who is in agreement with this plan of care. Occupational Therapy OCCUPATIONAL THERAPY TREATMENT NOTE Skilled Therapy Needs After Discharge Anticipate Resolution of Current Assessment Limitations Including: Pain, Mechanical Barriers, Social Support Are Skilled Therapy Services Needed After Discharge: Yes Intensity of Skilled Therapy: 5 to 7 days per week Anticipated Duration of Skilled Therapy: Duration 10 - 30 days DME Recommendation: To be determined at next level of care Rehab Potential: Excellent Outcomes Measures Prior Function Daily Activity Raw Score: 24 Prior Function Daily Activity % Impaired: 0% AM-PAC Daily Activity Raw Score: 17 AM-PAC Daily Activity % Impaired: 50.11% Activity Tolerance Activity Tolerance: Tolerates 30+ min activity without fatigue Therapy Precautions Orthotic Devices: No General Rehab Precautions: Abdominal, Fall risk Cognition Arousal/Alertness: Delayed responses to stimuli Orientation Level: Oriented X4, With cues Executive functioning: Min impairment, Insight, Processing delay, Sequencing, Planning / Organizing Safety Judgment: Decreased awareness of need for assistance, Decreased awareness of need for safety Problem Solving: Assistance required to identify errors made, Assistance required to generate solutions Attention: Easily distracted Hearing Status: Hard of hearing Social Interaction: Cooperative, Word finding Comments: Reviewed abdominal precautions with pt verbalizing understanding. Skilled Intervention Provided: patient education For: preparing for self-care tasks, necessary precautions Resulting In: increased insight into deficits ADL Feeding: Set-up Grooming: Stand by assist, Contact guard assist (standing at sink) Upper Body Bathing: Set-up, Supervision Lower Body Dressing: Contact guard assist Toileting: Stand by assist Overall ADL Performance - Skilled Intervention Provided: verbal cues, tactile cues, provided step by step instructions Overall ADL Performance - For: attention to task, compensatory strategies, energy conservation Overall ADL Performance - Resulting In: improved awareness, improved activity tolerance IADL Bed Mobility Functional Transfers Sit to Stand: Contact guard assist Bed to Chair Transfers: Contact guard assist Toilet Transfers: Contact guard assist Emergency Room Rn: wheeled walker Skilled Intervention Provided: verbal cues, tactile cues, provided step by step instructions For: energy conservation, safety during functional task(s), UE positioning Resulting In: improved activity tolerance Exercise Balance Treatment Interventions Additional Treatment Details Pt able to tolerate navigation in/out of room with ww, occasional mild lob, pt requires vcs for safe hand placement and utilization of ww. Pt requires increased time throughout session for all tasks. Home Living Obtained Home Living and PLOF info from: Patient, Patient s family member Lives With: Alone (Daughter able to assist) Type of Home: House Home Layout: One level, Laundry in basement, Stairs between floors (working on bringing laundry up to main level) Rails on inside stairs: 1 rail Number of stairs inside home: 12 Bathroom Shower/Tub: Tub/shower unit (pt showers or sits in tub to bathe) Bathroom Toilet: Standard Bathroom Equipment: (none) Bathroom Accessibility: Accessible Mobility Equipment: (none per pt) Additional Objective Details - Home Living: Daughter completes financial services representative, medication management (post CVA, prior to CVA, pt was independent w/ med management). Pt endorsing x1 fall recently Prior Level of Function Level of Sherman - Transfers/Ambulation/Mobility: Independent with household ambulation, Independent with functional transfers Level of [place] - ADLs: Independent Level of [place] - Homemaking: Independent Driving: Patient drives (pt's daughter assist (states has not been driving as much recently)) For complete objective data, detailed plan of care and patient education refer to: OT Evaluation flowsheet, OT Evaluation and Treatment flowsheet, OT Treatment flowsheet, patient Plan of Care, Plan of Care progress note, and Patient Education. This note stands as the current Discharge Summary upon patient discharge from the hospital or completion of Occupational Therapy Plan of Care. Nutrition Support Team Daily Progress Note Pertinent clinical information: Minimal intake of CLD reported but no N/V. Advanced to FLD this am. x7 BMs recorded past 24H. Current weight: 68.4 kg (150 lb 12.7 oz)- 4/7 Wt change since admit: +0.4kg (68kg) Current TPN prescription: Component Order Dose Admin Dose parenteral amino acid 15% no.6 15 % Solp 80 g/day 79.95 g dextrose 70% Solp 240 g/day 240.1 g fat emulsion (INTRALIPID,LIPOSYN) 20 % Emul 45 g/day 225 mL sterile water Solp 486.95 mL/day 486.95 mL sodium chloride (CONC 23.4%) 4 mEq/mL Solp 100 mEq 100 mEq potassium acetate 2 mEq/mL Soln 60 mEq 60 mEq potassium phosphate 3 mmol/mL Soln 20 mmol 20 mmol calcium gluconate 100 mg/mL (10%) Soln 8 mEq 1.7 g magnesium sulfate 4 mEq/mL (50 %) Soln 10 mEq 10 mEq mvi, adult no.4 with vit K 3,300 unit- 150 mcg/10 mL Soln 10 mL 10 mL trace elements Zn-Cu-Mn-Se 3 mg-0.3 mg-55 mcg-60 mcg/mL Soln 1 mL 1 mL TPN at 70ml/hr provides 1586kcal and 80g protein. MIVF: none Pertinent labs: Recent Labs 01/02/23 0400 01/03/23 0415 01/03/23 0629 01/04/23 041 NA 138 137 -- 138 K 3.9 3.8 -- 4.0 BICARB 26 27 -- 27 CL 103 101 -- 103 GLUCOSE 107* 111* -- 126* BUN 14 14 -- 18 CREATININE 0.43* 0.40* -- 0.35* MG 2.1 2.2 -- 2.2 PHOS 3.5 3.7 -- 3.9 RAUL -- -- 4.8 -- TRIG -- 163* -- -- TPN Changes: -Cycle TPN in 1680ml over 12H. Lakshmi Gonzalez RD, LD, [facility] Nutrition Care Follow Up Monitoring and Evaluation: Pt tolerating TPN infusion to meet estimated needs Nutrition Diagnosis: Inadequate oral food/beverage intake related to alteration in GI tract structure and/or function as evidenced by TPN, poor po intake. Not Resolved Nutrition Intervention/Prescription: Current Diet: FLD Continue Parenteral Nutrition, managed per NST Nutrition Goals: TPN to meet nutrition needs until oral/enteral route established Start Date:01/04/2023 Expected End Date:01/08/2023 PO intake > 75% most meals Start Date:01/04/2023 Expected End Date:01/08/2023 Nutrition Education: No needs at this time Assessment: Subjective: Pt reports starting to have an appetite, ate most of COW this morning Objective: Pertinent clinical issues: NGT removed 01/01; diet progressing to fulls today. TPN continues, cycle tonight Adult TPN Diet Special; Liquid; Full Liquid Adult Cyclic TPN Recent intake: PO <50%; TPN Height: 5' 3 Admit wt: 68kg Current weight: 68.4 kg (150 lb 12.7 oz) Difficulty Chewing/Swallowing: No Skin Integrity: Surgical incision GI Function: LBM 01/03 Labs: reviewed Pertinent Meds: reviewed Estimated Energy Needs Total Energy Estimated Needs: 9575-8753 Method for Estimating Needs: 22-25 kcals/kg IBW (BMI 24.9: 64kg) Total Protein Estimated Needs: 76-96g Method for Estimating Needs: 1.2-1.5g/kg IBW (BMI 24.9: 64kg) Shraddha Gomez RD, LD, [facility] Vocera: [phone] [facility] 01/04/2023 Merlyn Perez 1940 [id number] Assessment/Plan: Merlyn Perez is a 82 y.o. female with a history of HTN and recent CVA 11/27/22 who presented to [facility] 12/14/22 and again 12/16/22 for recurrent abdominal pain. OSH CT C/A/P 12/17/22 noted RLQ mass and enlarged mediastinal LNs, RLL pulmonary nodule. Transferred to [facility] 12/17/2022 for SurgOnc evaluation. 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 Course complicated with ileus. Neuroendocrine Tumor: Presented as above. C-scope 12/20/[address] A&P 12/21/22 concerned for RLQ malignancy s/p right colectomy with terminal ileum resection 12/23/[address] Deras. 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 PICC placed for TPN. Pain control, Pain Management following. Monitor respiratory status with oral narcotics. Ileus: confirmed on KUB 12/25/22, s/p NGT 12/25 with good output, had to be replaced 12/[address] A&P 12/26 with edematous bowel but no perforation, KUB 12/27 with ileus vs pSBO, CT A/P 12/30/22 with evolving ileus. NG removed 01/01/23. SurgOnc following. Undergoing trial of diet. Leukocytosis: reactive to surgery. Afebrile, no infectious symptoms, resolved. Epigastric Pain: GI followed, s/p negative EGD 12/20/22. Acute Metabolic Encephalopathy: transient, likely with baseline cognitive impairment and receiving Dilaudid. Resolved. Lymphadenopathy: noted on OSH CT C/A/P as mentioned above. Pulmonary followed, follow-up CT in [address] A&P 12/21 with 14mm LLL nodule along with several non-specific nodules. Outpatient follow-up. Recent CVA: with residual right facial droop, mild dysarthria. Hospitalized 11/27/22. Neurology followed, OSH MRI brain reviewed, tiny stroke burden. Restart AP as able and statin.Follow-up outpatient with [facility] (AVS updated). HTN Urgency: per hx, amlodipine, atenolol, lisinopril and Lasix held given NPO status. On scheduled IV metoprolol and has PRNs. Pain control given this is the source of elevated BP. Uterine Prolapse: Follows with Dr. Hartley in [place]. PVR unremarkable this admission. Dr. Smiley (uro-nut sorter) declined pessary this admission, ok to follow up at home. May require intermittent straight cath if urinary retention noted. Code Status: full, discussed on admit. DVT Prophylaxis: Lovenox. Current living situation: home. Expected disposition: SNF vs [place] [facility] Estimated discharge date: once ileus resolved, surgery clearance *Family updated bedside 01/04. Subjective: Patient tolerant of some diet overnight without n/v/ and pain. Discussed care with Daughter at bedside. I have reviewed labs, images, and garden consultant notes with surgery, cbc, bmp. Physical Exam: BP (!) 145/82 (BP Location: Right arm, Patient Position: Sitting) Comment: RN notified Pulse (!) 102 Comment: RN notified Temp 97.4 F (36.3 C) (Oral) Resp 14 Ht 5' 3 Wt 68.4 kg (150 lb 12.7 oz) SpO2 97% BMI 26.71 kg/m General: Mild distress due to pain. Eyes: EOMI. ENT: Neck supple. NGT in place. Cardiovascular: Regular rate. Respiratory: Clear to auscultation. Gastrointestinal: Soft, generalized tenderness, non-peritoneal. Genitourinary: No suprapubic tenderness. Musculoskeletal: No edema. Skin: Warm, dry. Neuro: Alert. Psych: Mood appropriate. Current Medications: bisacodyL 10 mg Rectal Daily enoxaparin (LOVENOX) injection 40 mg Subcutaneous Daily gabapentin 300 mg Oral Q8H JOSH methocarbamoL 500 mg Oral Q8H JOSH metoprolol tartrate 25 mg Oral BID pantoprazole 40 mg Intravenous Daily sodium chloride (PF) 10 mL Intracatheter Q8H JOSH sodium chloride (PF) 5 mL Intravenous Q8H [facility] Labs, Imaging and Studies reviewed: Results from last 7 days Lab Units 01/04/2341001/03/2341401/02/23399 WBC K/mcL 4.33* 5.93 6.52 HGB g/dL 10.5* 10.5* 10.2* HCT % 32.8* 33.4* 32.0* PLT K/mcL 122* 143* 136* Results from last 7 days Lab Units 01/04/2341001/03/2341401/02/23 0400 SODIUM mmol/L 138 137 138 POTASSIUM mmol/L 4.0 3.8 3.9 CHLORIDE mmol/L 103 101 103 BICARB mmol/L 27 27 26 BUN mg/dL 18 14 14 CREATININE mg/dL 0.35* 0.40* 0.43* EGFR mL/min/1.73 m2 103 100 98 GLUCOSE mg/dL 126* 111* 107* CALCIUM mg/dL 8.9 8.6 8.6 PHOSPHORUS mg/dL 3.9 3.7 3.5 Results from last 7 days Lab Units 01/03/23414 ALT U/L 75* AST U/L 82* ALK PHOS U/L 185* BILIRUBIN TOTAL mg/dL 0.4 Date: 01/04/2023 Patient name: Merlyn Perez Date Of : 1940 Admit Date: 12/17/2022 Back pain Assessment & Plan Reason For Hospitalization: ICD-10 M54.9 Merlyn Perez presented 12/17/2022 a 82 y.o. female with a history of HTN and recent CVA 11/27/22 who presented to [facility] 12/14/22 and again 12/16/22 for recurrent abdominal pain. OSH CT C/A/P 12/17/22 noted enlarged mediastinal LNs with 5 mm RLL pulmonary nodule and RLQ 1.7x1.6cm mass abbutting the distal small bowel. Transferred to [facility] 12/17/2022 for SurgOnc evaluation. 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 Course complicated 12/25 with ileus s/p NGT. Assessment: Merlyn was lying on her back in the bed, appears drowsy. She was much more talkative today. States her pain continues to be tolerable at times and feels that the [place] is helpful. She is happy that her diet is starting to advance. Ate some Cream of Wheat this morning and hopeful that the advance in her diet will reduce her gas, which she states is causing her pain. Currently rates her pain 5/10 all through her bowels and around both sides of her waistline. Hoping to move more today with therapy. Pt notes that she does not like opiate pain medications and has concerns about addiction. Previous Note Pt reports right low back pain that radiates all the way around her waist that has been present since December 16. She is also reporting stomach bloating. States she hadn't eaten in 10 days and her electrolytes were off. She was put on IV Potassium and it caused muscle cramping, so was started on IVPB Robaxin, which was helpful. Pt expresses that she does not like opiate pain medications and has concerns about addiction. Had undesirable side effects with IV Dilaudid. Morphine made her itch, but did take the edge off. Using Benadryl with the IV Morphine caused similar side effect as Dilaudid. Lidocaine patch is not helpful and would like to discontinue. Feels that IV Tylenol is helpful as well as Gabapentin, but interested in spreading dose of Gabapentin out as it does cause some drowsiness. Gabapentin was discontinued at this time per surgery as pt NPO. Plan: Continue [place] 5/325 mg PO Q 4 H PRN, caution sedation Continue Tylenol 650 mg PO Q 4 H PRN, caution with [place] Continue Robaxin 500 mg PO Q 8 H, caution sedation Continue Gabapentin 300 mg PO Q 8 H Discontinued/Completed Therapies Lidocaine patch, pt states not helpful Gabapentin 100 mg PO TID, discontinued per surgery at pt NPO Robaxin 1 gram IV Q 8 H x 48 hours, complete Oxycodone 5 mg SL Q 4 H PRN, rotated to oral Morphine due to drowsiness oral Morphine 10 mg SL Q 4 H PRN, caused agitation and confusion Oxycodone 5 mg SL Q 4 H PRN, rotate to [place] in hopes of less side effects Robaxin 1 gram IVPB Q 8 H x 3 days, complete OFIRMEV 1,000 mg IVPB Q 8 H, taking oral Morphine 1-2 mg IV Q 4 H PRN, not utilizing in over 48 hours Acute Findings/Imaging/Procedures XR Abdomen AP 12/27/2022 IMPRESSION: 1. Scattered contrast in the colon extending into the rectum. 2. Several gas distended small bowel loops may reflect ileus or partial small bowel obstruction, grossly unchanged. 3. NG tube side port at the level of the diaphragm. This should be advanced at least 3 cm and then be rechecked. CT Abdomen Pelvis With Contrast 12/26/2022 IMPRESSION: 1. Long segment of thick-walled edematous distal small bowel to the ileocolonic anastomosis. This finding is nonspecific at this time, although the possibly of early ischemia should be considered. There is no bowel pneumatosis or signs of bowel perforation. 2. Mildly dilated small bowel proximal to the thickened segment. The oral contrast given is present throughout the small bowel to the anastomosis. 3. Moderate scattered free fluid within the abdomen and pelvis and mild mesenteric edema. Free fluid is water attenuation with the exception of a small amount of layering debris or blood products in the posterior peritoneal cavity of the pelvis. 4. Nasogastric tube tip position within the gastric body. Stomach is nondistended. 5. No acute abnormality of the solid organs. 6. Additional stable nonemergent findings as above. Disposition/Ongoing Plan: TBD Substance Use History: Tobacco Use: Denies EtOH Use: Yes, 1-2 glasses of white wine 3-4 times per month THC/CBD Use: Denies Illicit Substance Use: Denies Obtain/Use Medications not prescribed to you: Denies OARRS Reviewed: None reported Chief Complaint/Reason for Visit: 1. Pulmonary nodule 2. Abdominal pain, unspecified abdominal location 3. Abdominal mass, unspecified abdominal location 4. Colonic mass History of Present Illness: Merlyn Perez is a 82 y.o. y/o female presenting 12/17/2022 who presented to [facility] 12/14/22 and again 12/16/22 for recurrent abdominal pain. OSH CT C/A/P 12/17/22 noted enlarged mediastinal LNs with 5 mm RLL pulmonary nodule and RLQ 1.7x1.6cm mass abbutting the distal small bowel. Transferred to [facility] 12/17/2022 for SurgOnc evaluation. 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 Course complicated 12/25 with ileus s/p NGT. During rounding visit 01/04/2023 Merlyn was lying on her back in the bed, appeared to be sleeping and in NAD. She was drowsy, but very talkative today throughout the interview. She is pleased that her diet has been advanced and is hoping that this will help to reduce her gas, which she feels is causing her abdominal pian. Ate cream of wheat this morning. Currently reports pain all through her bowels and around both sides of the waistline, currently rating her pain 5/10. States her pain is tolerable at times with pain medication. States pain medication doesn't always help her pain. Feels that the rotation to [place] yesterday has been doing some good. Pt hoping to get up and move some and wal to help her bowels Therapy came into the room present to get patient up into the chair. Will continue to reassess and make changes as needed. Denies side effects/sedation on current regimen. History: Past Medical History: Diagnosis Date Hypertension Stroke (HCC) Past Surgical History: Procedure Laterality Date COLECTOMY LAPAROSCOPIC RIGHT N/A 12/23/2022 Procedure: LAPAROSCOPIC RIGHT COLECTOMY; Surgeon: Kell Deras MD; Location: [facility] Main OR; Service: General Surgery COLONOSCOPY N/A 12/20/2022 Procedure: COLONOSCOPY; Surgeon: Storm Byers MD; Location: [facility] Endo; Service: Gastroenterology EGD N/A 12/20/2022 Procedure: ESOPHAGOGASTRODUODENOSCOPY; Surgeon: Storm Byers MD; Location: [facility] Endo; Service: Gastroenterology History reviewed. No pertinent family history. Social History Socioeconomic History Marital status: Tobacco Use Smoking status: Never Passive exposure: Past Smokeless tobacco: Never Vaping Use Vaping status: Never Used Passive vaping exposure: Yes Substance and Sexual Activity Alcohol use: Not Currently Drug use: Never Allergy Information: I have reviewed the patient's allergies. Amlodipine Home Medications: Outpatient Medications as of 01/04/2023 Medication Sig amLODIPine (NORVASC) 2.5 MG tablet Take 1 (one) tablet (2.5 mg total) by mouth daily . aspirin 81 mg chewable tablet Chew and Swallow 1 (one) tablet (81 mg total) . atenoloL (TENORMIN) 50 MG tablet Take 1.5 (one and a half) tablets (75 mg total) by mouth daily . calcium carbonate (TUMS) 200 mg calcium (500 mg) chewable tablet Chew and Swallow 1 (one) tablet (500 mg total) 3 (three) times a day . clopidogreL (PLAVIX) 75 mg tablet Take 1 (one) tablet (75 mg total) by mouth daily . furosemide (LASIX) 20 MG tablet Take 1 (one) tablet (20 mg total) by mouth daily . lisinopriL (PRINIVIL,ZESTRIL) 20 MG tablet Take 1 (one) tablet (20 mg total) by mouth 2 (two) times a day . omeprazole (PRILOSEC) 40 MG capsule Take 1 (one) capsule (40 mg total) by mouth daily . Review of Systems: The following system(s) were reviewed and pertinent findings noted: All other systems reviewed and negative other than HPI Physical Examination: Vital Signs: BP (!) 145/82 (BP Location: Right arm, Patient Position: Sitting) Comment: RN notified Pulse (!) 102 Comment: RN notified Temp 97.4 F (36.3 C) (Oral) Resp 14 Ht 5' 3 Wt 68.4 kg (150 lb 12.7 oz) SpO2 97% BMI 26.71 kg/m General: Awake/Alert, cooperative, no distress, appears stated age Head: Normocephalic, without obvious abnormality, atraumatic Eyes: Conjunctiva/corneas clear, EOM intact Throat: Lips, mucosa, and tongue normal; teeth and gums normal Neck: Symmetrical, trachea midline Back: Symmetric, no obvious curvature Lungs: Respirations unlabored,normal respiratory effort Chest Wall: No tenderness or deformity Cardiovascular: Regular rate Genitourinary Not examined Abdomen: Distended Skin: Skin color wnl, no rashes or lesions Musculoskeletal: ZARAGOZA x 4, no joint edema Neurologic: Oriented, follows commands, gross strength and sensation intact Psych: Mood and affect appropriate Intake/Output last 3 shifts: I/O last 3 completed shifts: In: 42748 [P.O.:100; I.V.:165.7; IV Piggyback:2557.2] Out: 350 [Urine:350] Medications: Scheduled Meds: bisacodyL 10 mg Rectal Daily enoxaparin (LOVENOX) injection 40 mg Subcutaneous Daily gabapentin 300 mg Oral Q8H JOSH methocarbamoL 500 mg Oral Q8H JOSH metoprolol tartrate 25 mg Oral BID pantoprazole 40 mg Intravenous Daily sodium chloride (PF) 10 mL Intracatheter Q8H JOSH sodium chloride (PF) 5 mL Intravenous Q8H JOSH Continuous Infusions: Adult TPN 70 mL/hr at 01/04/23 0612 dextrose sodium chloride 0.9 % 10 mL/hr (01/03/23 0215) PRN Meds: acetaminophen, alteplase, aluminum-magnesium hydroxide-simethicone, benzonatate, dextrose, diphenhydrAMINE-zinc acetate, guaiFENesin, hydrALAZINE, HYDROcodone-acetaminophen, labetalol, melatonin, morphine injection, nalOXone AND Notify physician AND naloxone, ondansetron OR ondansetron, simethicone, sodium chloride (PF), Saline lock IV AND sodium chloride (PF) AND sodium chloride (PF) AND sodium chloride 0.9 % Laboratory and Additional Data Reviewed: Laboratory 01/04/23 Microbiology 01/04/23 Pathology 01/04/23 Radiology 01/04/23 Cardiology 01/04/23 Medications 01/04/23 Transcriptions 01/04/23 Drugs of Abuse 01/04/23 Assessment Detail: The total time spent for this visit was 25 minutes. Greater than 50% of the time was spent in counseling and coordination of care regarding pain control and plan Please note that plan to help manage symptoms will include maximizing adjunctive agents and developing a multi-modal treatment plan. If opiate based medications are being used, we have talked about the risk and benefits of using this class of medication. Discussed with patient that there is a risk that opioid addiction could occur, meaning that he/she might become psychologically dependent on the medication and also discussed possible side effects/adverse events associated with narcotics Goal will be to use opiates at lowest effective doses for shortest period of time to help manage acute pain Discussed with Merlyn Perez about realistic expectation surrounding pain control- as being pain free is unlikely Discussed safety is paramount while trying to keep them as comfortable as possible Physical Therapy PHYSICAL THERAPY TREATMENT NOTE Skilled Therapy Needs After Discharge Anticipate Resolution of Current Assessment Limitations Including: Pain, Mechanical Barriers Are Skilled Therapy Services Needed After Discharge: Yes Intensity of Skilled Therapy: 5 to 7 days per week Anticipated Duration of Skilled Therapy: Duration 10 - 30 days DME Recommendation: To be determined at next level of care Rehab Potential: Good, For goals Outcomes Measures Prior Function - Basic Mobility Raw Score: 24 Points Prior Function - Basic Mobility % Impaired: 0% AM-PAC Basic Mobility Raw Score: 17 Points AM-PAC Basic Mobility % Impaired: 43.83% Activity Tolerance Activity Tolerance: Tolerates 20 - 30 min activity with multiple rests Therapy Precautions Orthotic Devices: No Weight Bearing Status: WFL General Rehab Precautions: Fall risk, Abdominal Balance Sitting Balance - Static: Stand by assist Sitting Balance - Dynamic: Stand by assist, Contact guard assist Sitting Balance Treatment: weight shifting anterior, reaching within base of support, maintaining midline orientation, postural re-education, reaching across midline Skilled Intervention Provided: verbal cues, tactile cues, facilitation, neuromuscular re-education, patient education For: LE management, UE management, attention to task, efficient movement, initiation of tasks, postural alignment, necessary precautions, sequencing of movement, self-monitoring during activity Resulting in: improved activity tolerance, improved awareness, improved performance, improved safety, improved initiation Standing Balance - Static: Contact guard assist Emergency Room Rn - Standing Static: wheeled walker Standing Balance - Dynamic: Contact guard assist Emergency Room Rn - Standing Dynamic: wheeled walker Standing Balance Treatment: weight shifting anterior, reaching within base of support, maintaining midline, postural re-education, stepping forward, stepping backward, side stepping Skilled Intervention Provided: verbal cues, tactile cues, facilitation, neuromuscular re-education, patient education For: LE management, UE management, attention to task, efficient movement, initiation of tasks, postural alignment, safe use of AD and/or equipment, self-monitoring during activity, sequencing of movement Resulting in: improved activity tolerance, improved awareness, improved initiation, improved performance, improved safety Bed Mobility Rolling: Contact guard assist (x1 to the right) Supine to Sit: Contact guard assist, Minimal assist (x1 trial) Sit to Supine: (Patient up in chair at end of treatment session.) Emergency Room Rn: bedrails, bed positioning mechanics Skilled Intervention Provided: verbal cues, tactile cues, facilitation, monitoring patient response with activity, patient education, provided step by step instructions For: LE management, UE management, attention to task, efficient movement, proper body mechanics, safe use of bedrails and/or equipment, self-monitoring during activity, sequencing of movement, safety during functional tasks, logroll technique, necessary precautions, initiation of task Resulting in: improved activity tolerance, improved awareness, improved safety, improved performance Transfers Sit to Stand: Contact guard assist (x2 trials) Bed to Chair: Contact guard assist (x1 trial) Stand Pivot Transfers: Contact guard assist (x1 trial) Emergency Room Rn: wheeled walker Skilled Intervention Provided: verbal cues, tactile cues, facilitation, monitoring patient response with activity, patient education, provided step by step instructions, neuromuscular re-education For: LE management, UE management, attention to task, efficient movement, initiation of task, necessary precautions, safe use of AD and/or equipment, self-monitoring during activity, sequencing of movement Resulting in: improved activity tolerance, improved awareness, improved safety, improved performance Gait/Locomotion Gait Assistance: Contact guard assist Assistive Device: wheeled walker Distance: 190 Feet Rest Breaks: Yes Rest Break Position: seated Pattern: step through, R impaired heel strike, L impaired heel strike, R decreased step length, L decreased step length, over reliance on upper extremities, forward flexed, decreased larry (steps per minute) Skilled Intervention Provided: verbal cues, tactile cues, facilitation, monitoring patient response with activity, patient education, provided step by step instructions, neuromuscular re-education For: attention to task, device management and safe use of device, initiation of task, LE management, UE management, obstacle negotiation, pathfinding, self-monitoring during activity Resulting in: improved activity tolerance, improved efficiency, improved safety, improved performance Exercise Ankle Pumps: x10 BLE Hip Flexion: x10 BLE Long Arc Quad: x10 BLE Skilled Intervention Provided: verbal cues, demonstration, facilitation, instruction on proper technique/alignment, monitoring patient response with exercise, patient education For: achieving full ROM as tolerated, efficient movement, muscle activation, number of repetitions, proper positioning of extremity, self-monitoring during activity Resulting in: efficient movement, improved awareness, improved performance, improved safety, improved sequencing, improved initiation Additional Treatment Details Reviewed/educated patient on abdominal precautions. Reviewed logroll technique for getting in/out of bed and patient demostrated understanding. All needs within reach of patient upon exiting room. Patient's daughter present in room at end of treatment session. Home Living Obtained Home Living and PLOF info from: Patient, Patient s family member Lives With: Alone (Daughter able to assist) Type of Home: House Home Layout: One level, Laundry in basement, Stairs between floors (working on bringing laundry up to main level) Rails on inside stairs: 1 rail Number of stairs inside home: 12 Bathroom Shower/Tub: Tub/shower unit (pt showers or sits in tub to bathe) Bathroom Toilet: Standard Bathroom Equipment: (none) Bathroom Accessibility: Accessible Mobility Equipment: (none per pt) Additional Objective Details - Home Living: Daughter completes financial services representative, medication management (post CVA, prior to CVA, pt was independent w/ med management). Pt endorsing x1 fall recently Prior Level of Function Level of [place] - Transfers/Ambulation/Mobility: Independent with household ambulation, Independent with functional transfers Level of [place] - ADLs: Independent Level of [place] - Homemaking: Independent Driving: Patient drives (pt's daughter assist (states has not been driving as much recently)) For complete objective data, detailed plan of care and patient education refer to: PT Evaluation flowsheet, PT Evaluation and Treatment flowsheet, PT Treatment flowsheet, patient Plan of Care, Plan of Care progress note, and Patient Education. This note stands as the current Discharge Summary upon patient discharge from the hospital or completion of Physical Therapy Plan of Care. Surgical Oncology Daily Progress Note Patient Name: Merlyn Perez MR #: [id number] : 1940 Assessment and Plan: 82 y.o. female w/ PMHx of HTN, HLD, anxiety/depression, asthma, GERD, recent admission for CVA (11/27/2022) on Plavix, w/ hx of R frontal, parietal, and L temporal infarctions, h/o CCY who presented to [facility] on 12/17/2022 as transfer from [facility] with RLQ back pain, concern for mass. 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 She reports stable pain and having some bowel function. Objective: Vital Signs BP (!) 157/82 Pulse (!) 111 Temp 99.4 F (37.4 C) (Oral) Resp 16 Ht 5' 3 Wt 68.4 kg (150 lb 12.7 oz) SpO2 97% BMI 26.71 kg/m Constitutional NAD Head Normocephalic, atraumatic Ears Grossly normal hearing Eyes EOMI Neck Trachea midline Cardiovascular HDS Chest Non-labored breathing, equal chest rise Abdomen Soft, mild diffuse TTP; mildly distended; no peritoneal signs, incisions w exofin c/d/I Extremities ZARAGOZA Skin Warm, dry, intact Neurologic: No focal deficits Laboratory Studies: Recent laboratory studies reviewed CBC: Results from last 7 days Lab Units 01/04/23 0411 WBC K/mcL 4.33* HGB g/dL 10.5* HCT % 32.8* PLT K/mcL 122* Results from last 7 days Lab Units 01/04/23 0411 01/03/23 0415 01/02/23 0400 HGB g/dL 10.5* 10.5* 10.2* Chem: Results from last 7 days Lab Units 01/04/2341001/03/23414 SODIUM mmol/L 138 137 POTASSIUM mmol/L 4.0 3.8 CHLORIDE mmol/L 103 101 BUN mg/dL 18 14 CREATININE mg/dL 0.35* 0.40* CALCIUM mg/dL 8.9 8.6 TOTAL PROTEIN g/dL -- 6.4 ALK PHOS U/L -- 185* ALT U/L -- 75* AST U/L -- 82* GLUCOSE mg/dL 126* 111* Results from last 7 days Lab Units 01/04/23 0411 01/03/235 01/02/23 0400 CREATININE mg/dL 0.35* 0.40* 0.43* LFT's: Results from last 7 days Lab Units 01/03/23414 ALK PHOS U/L 185* BILIRUBIN TOTAL mg/dL 0.4 TOTAL PROTEIN g/dL 6.4 AST U/L 82* ALT U/L 75* Diagnostic Imaging: Recent diagnostic imaging/reports reviewed Associated attestation - Kell Deras MD - 01/04/2023 3:52 PM EDT I have reviewed the notes, assessments, and/or procedures performed by resident/KRISTEN, I concur with her/his documentation with the following additions/addendums: I have personally seen and examined the patient on rounds. Continues to have some mild crampy abdominal pain. Having flatus and bowel function. Abdomen soft, minimally distended, minimally tender, incisions well-healing Advance to full liquid diet. Monitor tolerance. TPN for nutrition until she is eating. Begin dispo planning. Care Management Progress Note Date: 01/03/2023 Time: 11:26 AM Patient Name: Merlyn Perez Date of : 1940 Discharge Plan: D/C Disposition: Rehab Facility Post-Acute Patient Choice 1: [facility] Post[facility]Ac[facility] Patient Choice 2: [facility] Options Reviewed: Possible expense, Explained services/benefits Reason for Choice: Patient/Family preference Regulatory Documentation: Medicare IM Regulatory Documentation Status: Certified Patient Paper Copy: Patient received paper copy Discharging Transportation Plan: Transportation Type: Auto (daughter will provide transportation a DC) Discharge Plan Status: Pt discussed during MDR's. Per RN, NG tube is out awaiting healing and pain management. WEATHERIZATION DIRECTOR will follow. Date: 01/03/2023 Patient name: Merlyn Perez Date Of : 1940 Admit Date: 12/17/2022 Back pain Assessment & Plan Reason For Hospitalization: ICD-10 M54.9 Merlyn Perez presented 12/17/2022 a 82 y.o. female with a history of HTN and recent CVA 11/27/22 who presented to [facility] 12/14/22 and again 12/16/22 for recurrent abdominal pain. OSH CT C/A/P 12/17/22 noted enlarged mediastinal LNs with 5 mm RLL pulmonary nodule and RLQ 1.7x1.6cm mass abbutting the distal small bowel. Transferred to [facility] 12/17/2022 for SurgOnc evaluation. 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 Course complicated 12/25 with ileus s/p NGT. Assessment: Merlyn was sitting in the recliner chair with feet elevated on foot rest, daughter at the bedside. Appears somewhat uncomfortable. She is having hot flashes, stating that she is burning up. She continues to report aching stomach pain that is sharp at times, currently rating her pain 9/10. Per MAR review, pt has not utilized opiate pain meds in over 24 hours. She feels that the Robaxin is helpful, IV Robaxin complete, will order oral now that NG removed. She would like it scheduled. She wants to eat. Pt notes that she does not like opiate pain medications and has concerns about addiction. Previous Note Pt reports right low back pain that radiates all the way around her waist that has been present since December 16. She is also reporting stomach bloating. States she hadn't eaten in 10 days and her electrolytes were off. She was put on IV Potassium and it caused muscle cramping, so was started on IVPB Robaxin, which was helpful. Pt expresses that she does not like opiate pain medications and has concerns about addiction. Had undesirable side effects with IV Dilaudid. Morphine made her itch, but did take the edge off. Using Benadryl with the IV Morphine caused similar side effect as Dilaudid. Lidocaine patch is not helpful and would like to discontinue. Feels that IV Tylenol is helpful as well as Gabapentin, but interested in spreading dose of Gabapentin out as it does cause some drowsiness. Gabapentin was discontinued at this time per surgery as pt NPO. Plan: Continue Morphine 1-2 mg IV Q 4 H PRN BTP, caution sedation, use oral opiate first Rotate to [place] 5/325 mg PO Q 4 H PRN, caution sedation Continue Tylenol 650 mg PO Q 4 H PRN Rotate to Robaxin 500 mg PO TID, caution sedation Continue Gabapentin 300 mg Q 8 H Discontinued/Completed Therapies Lidocaine patch, pt states not helpful Gabapentin 100 mg PO TID, discontinued per surgery at pt NPO Robaxin 1 gram IV Q 8 H x 48 hours, complete Oxycodone 5 mg SL Q 4 H PRN, rotated to oral Morphine due to drowsiness oral Morphine 10 mg SL Q 4 H PRN, caused agitation and confusion Oxycodone 5 mg SL Q 4 H PRN, rotate to [place] in hopes of less side effects Robaxin 1 gram IVPB Q 8 H x 3 days, complete OFIRMEV 1,000 mg IVPB Q 8 H, taking oral Acute Findings/Imaging/Procedures XR Abdomen AP 12/27/2022 IMPRESSION: 1. Scattered contrast in the colon extending into the rectum. 2. Several gas distended small bowel loops may reflect ileus or partial small bowel obstruction, grossly unchanged. 3. NG tube side port at the level of the diaphragm. This should be advanced at least 3 cm and then be rechecked. CT Abdomen Pelvis With Contrast 12/26/2022 IMPRESSION: 1. Long segment of thick-walled edematous distal small bowel to the ileocolonic anastomosis. This finding is nonspecific at this time, although the possibly of early ischemia should be considered. There is no bowel pneumatosis or signs of bowel perforation. 2. Mildly dilated small bowel proximal to the thickened segment. The oral contrast given is present throughout the small bowel to the anastomosis. 3. Moderate scattered free fluid within the abdomen and pelvis and mild mesenteric edema. Free fluid is water attenuation with the exception of a small amount of layering debris or blood products in the posterior peritoneal cavity of the pelvis. 4. Nasogastric tube tip position within the gastric body. Stomach is nondistended. 5. No acute abnormality of the solid organs. 6. Additional stable nonemergent findings as above. Disposition/Ongoing Plan: TBD Substance Use History: Tobacco Use: Denies EtOH Use: Yes, 1-2 glasses of white wine 3-4 times per month THC/CBD Use: Denies Illicit Substance Use: Denies Obtain/Use Medications not prescribed to you: Denies OARRS Reviewed: None reported Chief Complaint/Reason for Visit: 1. Pulmonary nodule 2. Abdominal pain, unspecified abdominal location 3. Abdominal mass, unspecified abdominal location 4. Colonic mass History of Present Illness: Merlyn Perez is a 82 y.o. y/o female presenting 12/17/2022 who presented to [facility] 12/14/22 and again 12/16/22 for recurrent abdominal pain. OSH CT C/A/P 12/17/22 noted enlarged mediastinal LNs with 5 mm RLL pulmonary nodule and RLQ 1.7x1.6cm mass abbutting the distal small bowel. Transferred to [facility] 12/17/2022 for SurgOnc evaluation. 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 Course complicated 12/25 with ileus s/p NGT. During rounding visit 01/03/2023 Merlyn was sitting in the recliner chair with feet elevated on foot rest, daughter present. Pt is awake, alert, oriented, appears somewhat uncomfortable, stating she is burning up and continues to have aching stomach pain that is sharp at times. Night time has been rough for pain. Per NOV review, pt has not been utilizing PRN pain meds in over 24 hours, trying to limit due to constipation and drowsy side effects vs concerns with addiction. Feels that Robaxin was helpful, IVPB complete, will order oral Robaxin, which they prefer to schedule. Will rotate to [place] in hopes of less drowsy side effects now that NG removed. Expresses desire to eat. Will continue to reassess and make changes as needed. Denies side effects/sedation on current regimen. History: Past Medical History: Diagnosis Date Hypertension Stroke (HCC) Past Surgical History: Procedure Laterality Date COLECTOMY LAPAROSCOPIC RIGHT N/A 12/23/2022 Procedure: LAPAROSCOPIC RIGHT COLECTOMY; Surgeon: Kell Deras MD; Location: [facility] Main OR; Service: General Surgery COLONOSCOPY N/A 12/20/2022 Procedure: COLONOSCOPY; Surgeon: Storm Byers MD; Location: [facility] Endo; Service: Gastroenterology EGD N/A 12/20/2022 Procedure: ESOPHAGOGASTRODUODENOSCOPY; Surgeon: Storm Byers MD; Location: [facility] Endo; Service: Gastroenterology History reviewed. No pertinent family history. Social History Socioeconomic History Marital status: Tobacco Use Smoking status: Never Passive exposure: Past Smokeless tobacco: Never Vaping Use Vaping status: Never Used Passive vaping exposure: Yes Substance and Sexual Activity Alcohol use: Not Currently Drug use: Never Allergy Information: I have reviewed the patient's allergies. Amlodipine Home Medications: Outpatient Medications as of 01/03/2023 Medication Sig amLODIPine (NORVASC) 2.5 MG tablet Take 1 (one) tablet (2.5 mg total) by mouth daily . aspirin 81 mg chewable tablet Chew and Swallow 1 (one) tablet (81 mg total) . atenoloL (TENORMIN) 50 MG tablet Take 1.5 (one and a half) tablets (75 mg total) by mouth daily . calcium carbonate (TUMS) 200 mg calcium (500 mg) chewable tablet Chew and Swallow 1 (one) tablet (500 mg total) 3 (three) times a day . clopidogreL (PLAVIX) 75 mg tablet Take 1 (one) tablet (75 mg total) by mouth daily . furosemide (LASIX) 20 MG tablet Take 1 (one) tablet (20 mg total) by mouth daily . lisinopriL (PRINIVIL,ZESTRIL) 20 MG tablet Take 1 (one) tablet (20 mg total) by mouth 2 (two) times a day . omeprazole (PRILOSEC) 40 MG capsule Take 1 (one) capsule (40 mg total) by mouth daily . Review of Systems: The following system(s) were reviewed and pertinent findings noted: All other systems reviewed and negative other than HPI Physical Examination: Vital Signs: BP (!) 154/82 (BP Location: Right arm, Patient Position: Sitting) Comment: RN notified Pulse (!) 114 Comment: RN notified Temp 98.2 F (36.8 C) (Oral) Resp 16 Ht 5' 3 Wt 68.4 kg (150 lb 12.7 oz) SpO2 95% BMI 26.71 kg/m General: Awake/Alert, cooperative, no distress, but appears uncomfortable, appears stated age Head: Normocephalic, without obvious abnormality, atraumatic Eyes: Conjunctiva/corneas clear, EOM intact Throat: Lips, mucosa, and tongue normal; teeth and gums normal Neck: Symmetrical, trachea midline Back: Symmetric, no obvious curvature Lungs: Respirations unlabored,normal respiratory effort Chest Wall: No tenderness or deformity Cardiovascular: Regular rate Genitourinary Not examined Abdomen: Distended Skin: Skin color wnl, no rashes or lesions Musculoskeletal: ZARAGOZA x 4, no joint edema Neurologic: Oriented, follows commands, gross strength and sensation intact Psych: Mood and affect appropriate Intake/Output last 3 shifts: I/O last 3 completed shifts: In: 84973 [I.V.:165.7; IV Piggyback:2557.2] Out: 650 [Urine:650] Medications: Scheduled Meds: enoxaparin (LOVENOX) injection 40 mg Subcutaneous Daily gabapentin 300 mg Oral Q8H JOSH insulin lispro 0-30 Units Subcutaneous Q4H JOHS methocarbamoL 500 mg Oral Q8H JOSH metoprolol 5 mg Intravenous Q6H JOSH pantoprazole 40 mg Intravenous Daily sodium chloride (PF) 10 mL Intracatheter Q8H JOSH sodium chloride (PF) 5 mL Intravenous Q8H JOSH Continuous Infusions: Adult TPN 70 mL/hr at 01/03/23 0122 dextrose sodium chloride 0.9 % 10 mL/hr (01/03/23 0215) PRN Meds: acetaminophen, alteplase, aluminum-magnesium hydroxide-simethicone, benzonatate, dextrose, diphenhydrAMINE-zinc acetate, guaiFENesin, hydrALAZINE, HYDROcodone-acetaminophen, labetalol, melatonin, morphine injection, nalOXone AND Notify physician AND naloxone, ondansetron OR ondansetron, simethicone, sodium chloride (PF), Saline lock IV AND sodium chloride (PF) AND sodium chloride (PF) AND sodium chloride 0.9 % Laboratory and Additional Data Reviewed: Laboratory 01/03/23 Microbiology 01/03/23 Pathology 01/03/23 Radiology 01/03/23 Cardiology 01/03/23 Medications 01/03/23 Transcriptions 01/03/23 Drugs of Abuse 01/03/23 Assessment Detail: The total time spent for this visit was 25 minutes. Greater than 50% of the time was spent in counseling and coordination of care regarding pain control and plan Please note that plan to help manage symptoms will include maximizing adjunctive agents and developing a multi-modal treatment plan. If opiate based medications are being used, we have talked about the risk and benefits of using this class of medication. Discussed with patient that there is a risk that opioid addiction could occur, meaning that he/she might become psychologically dependent on the medication and also discussed possible side effects/adverse events associated with narcotics Goal will be to use opiates at lowest effective doses for shortest period of time to help manage acute pain Discussed with Merlyn Perez about realistic expectation surrounding pain control- as being pain free is unlikely Discussed safety is paramount while trying to keep them as comfortable as possible Nutrition Support Team Daily Progress Note Pertinent clinical information: Advanced to CLD this am. +BMs overnight but no flatus. Some abd pain/distention reported. Current weight: 68.4 kg (150 lb 12.7 oz)- 12/31, bed scale not working, pt unable to stand for updated wt Wt change since admit: +0.4kg (68kg) Current TPN prescription: Component Order Dose Admin Dose parenteral amino acid 15% no.6 15 % Solp 80 g/day 79.95 g dextrose 70% Solp 240 g/day 240.1 g fat emulsion (INTRALIPID,LIPOSYN) 20 % Emul 45 g/day 225 mL sterile water Solp 486.95 mL/day 486.95 mL sodium chloride (CONC 23.4%) 4 mEq/mL Solp 100 mEq 100 mEq potassium acetate 2 mEq/mL Soln 60 mEq 60 mEq potassium phosphate 3 mmol/mL Soln 20 mmol 20 mmol calcium gluconate 100 mg/mL (10%) Soln 8 mEq 1.7 g magnesium sulfate 4 mEq/mL (50 %) Soln 10 mEq 10 mEq mvi, adult no.4 with vit K 3,300 unit- 150 mcg/10 mL Soln 10 mL 10 mL trace elements Zn-Cu-Mn-Se 3 mg-0.3 mg-55 mcg-60 mcg/mL Soln 1 mL 1 mL TPN at 70ml/hr provides 1586kcal and 80g protein. MIVF: none Pertinent labs: Recent Labs 01/01/23 0454 01/02/23 0400 01/03/23 0415 01/03/23 0629 NA 137 138 137 -- K 4.3 3.9 3.8 -- BICARB 26 26 27 -- CL 102 103 101 -- GLUCOSE 119* 107* 111* -- BUN 17 14 14 -- CREATININE 0.37* 0.43* 0.40* -- MG 2.0 2.1 2.2 -- PHOS 3.1 3.5 3.7 -- RAUL -- -- -- 4.8 TRIG -- -- 163* -- FSB-133, 0 units corrective insulin within the past 24h TPN Changes: -No change to current TPN rx. -Discontinue sliding scale insulin per NST protocol. Lakshmi Gonzalez RD, LD, [facility] Inpatient Progress Note 01/03/2023 Merlyn Perez 1940 [id number] Assessment/Plan: Merlyn Perez is a 82 y.o. female with a history of HTN and recent CVA 11/27/22 who presented to [facility] 12/14/22 and again 12/16/22 for recurrent abdominal pain. OSH CT C/A/P 12/17/22 noted RLQ mass and enlarged mediastinal LNs, RLL pulmonary nodule. Transferred to [facility] 12/17/2022 for SurgOnc evaluation. 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 Course complicated with ileus Neuroendocrine Tumor: Presented as above. C-scope 12/20/22 non-acute. CT A&P 12/21/22 concerned for RLQ malignancy s/p right colectomy with terminal ileum resection 12/23/[address] Deras. 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 PICC placed for TPN. Pain control, Pain Management following. Monitor respiratory status with IV narcotics. Ileus: confirmed on KUB 12/25/22, s/p NGT 12/25 with good output, had to be replaced 12/[address] A&P 12/26 with edematous bowel but no perforation, KUB 12/27 with ileus vs pSBO, CT A/P 12/30/22 with evolving ileus. NG removed 01/01/23. SurgOnc following Leukocytosis: reactive to surgery. Afebrile, no infectious symptoms, resolved. Epigastric Pain: GI followed, s/p negative EGD 12/20/22. Acute Metabolic Encephalopathy: transient, likely with baseline cognitive impairment and receiving Dilaudid. Resolved. Lymphadenopathy: noted on OSH CT C/A/P as mentioned above. Pulmonary followed, follow-up CT in [address] A&P 12/21 with 14mm LLL nodule along with several non-specific nodules. Outpatient follow-up. Recent CVA: with residual left facial droop, mild dysarthria. Hospitalized 11/27/22. Neurology followed, OSH MRI brain reviewed, tiny stroke burden. Restart AP as able and statin.Follow-up outpatient with [facility] (AVS updated). HTN Urgency: per hx, amlodipine, atenolol, lisinopril and Lasix held given NPO status. On scheduled IV metoprolol and has PRNs. Pain control given this is the source of elevated BP. Uterine Prolapse: Follows with Dr. Hartley in [place]. PVR unremarkable this admission. Dr. Smiley (uro-nut sorter) declined pessary this admission, ok to follow up at home. May require intermittent straight cath if urinary retention noted. Code Status: full, discussed on admit. DVT Prophylaxis: Lovenox. Current living situation: home. Expected disposition: SNF vs [facility] [facility] Estimated discharge date: once ileus resolved, surgery clearance *Family updated bedside 01/03. Subjective: No acute events overnight, pain seems stable. Attempting to maintain day/night cycle. Limit opiates as able. Pain management following Careful monitoring of respiratory status while on IV opiates Physical Exam: BP (!) 154/82 (BP Location: Right arm, Patient Position: Sitting) Pulse (!) 114 Temp 98.2 F (36.8 C) (Oral) Resp 16 Ht 5' 3 Wt 68.4 kg (150 lb 12.7 oz) SpO2 95% BMI 26.71 kg/m General: Mild distress due to pain. Eyes: EOMI. ENT: Neck supple. NGT in place. Cardiovascular: Regular rate. Respiratory: Clear to auscultation. Gastrointestinal: Soft, generalized tenderness, non-peritoneal. Genitourinary: No suprapubic tenderness. Musculoskeletal: No edema. Skin: Warm, dry. Neuro: Alert. Psych: Mood appropriate. Current Medications: acetaminophen 1,000 mg Intravenous Q8H enoxaparin (LOVENOX) injection 40 mg Subcutaneous Daily gabapentin 300 mg Oral Q8H [facility] insulin lispro 0-30 Units Subcutaneous Q4H [facility] metoprolol 5 mg Intravenous Q6H [facility] pantoprazole 40 mg Intravenous Daily sodium chloride (PF) 10 mL Intracatheter Q8H [facility] sodium chloride (PF) 5 mL Intravenous Q8H [facility] Labs, Imaging and Studies reviewed: Results from last 7 days Lab Units 01/03/2341401/02/2339901/01/23453 WBC K/mcL 5.93 6.52 6.62 HGB g/dL 10.5* 10.2* 10.5* HCT % 33.4* 32.0* 33.4* PLT K/mcL 143* 136* 148* Results from last 7 days Lab Units 01/03/2341401/02/2339901/01/23 045 SODIUM mmol/L 137 138 137 POTASSIUM mmol/L 3.8 3.9 4.3 CHLORIDE mmol/L 101 103 102 BICARB mmol/L 27 26 26 BUN mg/dL 14 14 17 CREATININE mg/dL 0.40* 0.43* 0.37* EGFR mL/min/1.73 m2 100 98 101 GLUCOSE mg/dL 111* 107* 119* CALCIUM mg/dL 8.6 8.6 8.3* PHOSPHORUS mg/dL 3.7 3.5 3.1 Results from last 7 days Lab Units 01/03/2341412/28/22 0459 ALT U/L 75* 15 AST U/L 82* 19 ALK PHOS U/L 185* 83 BILIRUBIN TOTAL mg/dL 0.4 0.4 Surgical Oncology Daily Progress Note Patient Name: Merlyn Perez MR #: [id number] : 1940 Assessment and Plan: 82 y.o. female w/ PMHx of HTN, HLD, anxiety/depression, asthma, GERD, recent admission for CVA (11/27/2022) on Plavix, w/ hx of R frontal, parietal, and L temporal infarctions, h/o CCY who presented to [facility] on 12/17/2022 as transfer from [facility] with RLQ back pain, concern for mass. CT A/P w/ IV contrast (12/16/2022): RLQ mass in distal small bowel exophytic appearing 1.7 x 1.6 cm w/ possible trace amount of blood in lumen, adjacent nodule in RLQ suspicious for reactive/metastatic LN, multiple small reactive LNs in RP and mesentery Terminal ileum Neuroendocrine tumor Recent CVA HTN - s/p l/s R hemicolectomy 12/23 - path - well diff neuroendocrine Grade 1 tumor, neg margins, +03/22 LN, pT2N1 - hold ASA/plavix - NPO, IVF - TPN - NG removed 01/01 - prn pain and nausea control - OOB/IS/AAT - DVT PPX: Lovenox, SCDs - GI PPX: Protonix Subjective: Having some abdominal pain this morning, but feels it's more incisional. She does feel distended and her abdomen is aching. Had BMs overnight but no flatus. Objective: Vital Signs BP (!) 162/82 Pulse (!) 114 Temp 99.1 F (37.3 C) Resp 16 Ht 5' 3 Wt 68.4 kg (150 lb 12.7 oz) SpO2 95% BMI 26.71 kg/m Constitutional NAD Head Normocephalic, atraumatic Ears Grossly normal hearing Eyes EOMI Neck Trachea midline Cardiovascular HDS Chest Non-labored breathing, equal chest rise Abdomen Soft, mild diffuse TTP; mildly distended; no peritoneal signs, incisions w exofin c/d/I Extremities ZARAGOZA Skin Warm, dry, intact Neurologic: No focal deficits Laboratory Studies: Recent laboratory studies reviewed CBC: Results from last 7 days Lab Units 01/03/235 WBC K/mcL 5.93 HGB g/dL 10.5* HCT % 33.4* PLT K/mcL 143* Results from last 7 days Lab Units 01/03/23 0415 01/02/23 0400 01/01/23 0454 HGB g/dL 10.5* 10.2* 10.5* Chem: Results from last 7 days Lab Units 01/03/23 0415 SODIUM mmol/L 137 POTASSIUM mmol/L 3.8 CHLORIDE mmol/L 101 BUN mg/dL 14 CREATININE mg/dL 0.40* CALCIUM mg/dL 8.6 TOTAL PROTEIN g/dL 6.4 ALK PHOS U/L 185* ALT U/L 75* AST U/L 82* GLUCOSE mg/dL 111* Results from last 7 days Lab Units 01/03/23 0415 01/02/23 0400 01/01/23 0454 CREATININE mg/dL 0.40* 0.43* 0.37* LFT's: Results from last 7 days Lab Units 01/03/23 0415 ALK PHOS U/L 185* BILIRUBIN TOTAL mg/dL 0.4 TOTAL PROTEIN g/dL 6.4 AST U/L 82* ALT U/L 75* Diagnostic Imaging: Recent diagnostic imaging/reports reviewed Associated attestation - Kell Deras MD - 01/03/2023 4:48 PM EDT I have reviewed the notes, assessments, and/or procedures performed by resident/KRISTEN, I concur with her/his documentation with the following additions/addendums: I have personally seen and examined the patient on rounds. Doing better. Had a BM. Abd softer and minimally tender. Adv to clears. Bowel regimen. TPN for now. If unable to adv will consider discharge on TPN to SNF in [place]. [facility] Inpatient Progress Note 01/02/2023 Merlyn Perez 1940 [id number] Assessment/Plan: Merlyn Perez is a 82 y.o. female with a history of HTN and recent CVA 11/27/22 who presented to [facility] 12/14/22 and again 12/16/22 for recurrent abdominal pain. OSH CT C/A/P 12/17/22 noted RLQ mass and enlarged mediastinal LNs, RLL pulmonary nodule. Transferred to [facility] 12/17/2022 for SurgOnc evaluation. 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 Course complicated with ileus Neuroendocrine Tumor: Presented as above. C-scope 12/20/[address] non-[address] CT A&P 12/21/22 concerned for RLQ malignancy s/p right colectomy with terminal ileum resection 12/23/[address] Deras. 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 PICC placed for TPN. Pain control, Pain Management following. Monitor respiratory status with IV narcotics. Ileus: confirmed on KUB 12/25/22, s/p NGT 12/25 with good output, had to be replaced 12/[address] A&P 12/26 with edematous bowel but no perforation, KUB 12/27 with ileus vs pSBO, CT A/P 12/30/22 with evolving ileus. NG removed 01/01/23. SurgOnc following Leukocytosis: reactive to surgery. Afebrile, no infectious symptoms, resolved. Epigastric Pain: GI followed, s/p negative EGD 12/20/22. Acute Metabolic Encephalopathy: transient, likely with baseline cognitive impairment and receiving Dilaudid. Resolved. Lymphadenopathy: noted on OSH CT C/A/P as mentioned above. Pulmonary followed, follow-up CT in [address] A&P 12/21 with 14mm LLL nodule along with several non-specific nodules. Outpatient follow-up. Recent CVA: with residual left facial droop, mild dysarthria. Hospitalized 11/27/22. Neurology followed, OSH MRI brain reviewed, tiny stroke burden. Restart AP as able and statin.Follow-up outpatient with [facility] (AVS updated). HTN Urgency: per hx, amlodipine, atenolol, lisinopril and Lasix held given NPO status. On scheduled IV metoprolol and has PRNs. Pain control given this is the source of elevated BP. Uterine Prolapse: Follows with Dr. Hartley in [place]. PVR unremarkable this admission. Dr. Smiley (uro-nut sorter) declined pessary this admission, ok to follow up at home. May require intermittent straight cath if urinary retention noted. Code Status: full, discussed on admit. DVT Prophylaxis: Lovenox. Current living situation: home. Expected disposition: SNF vs [facility]. Estimated discharge date: 3-4 days pending specialty clearance. *Family updated bedside 01/01. Subjective: No acute events overnight, KUB clamped and eventually removed 01/01. Patient reports some ongoing abdominal pain. Liquid BMs yesterday. Careful monitoring of respiratory status while on IV opiates Physical Exam: BP (!) 155/82 (BP Location: Right arm, Patient Position: Lying) Pulse (!) 114 Temp 99.6 F (37.6 C) (Oral) Resp 16 Ht 5' 3 Wt 68.4 kg (150 lb 12.7 oz) SpO2 95% BMI 26.71 kg/m General: Mild distress due to pain. Eyes: EOMI. ENT: Neck supple. NGT in place. Cardiovascular: Regular rate. Respiratory: Clear to auscultation. Gastrointestinal: Soft, generalized tenderness, non-peritoneal. Genitourinary: No suprapubic tenderness. Musculoskeletal: No edema. Skin: Warm, dry. Neuro: Alert. Psych: Mood appropriate. Current Medications: acetaminophen 1,000 mg Intravenous Q8H enoxaparin (LOVENOX) injection 40 mg Subcutaneous Daily gabapentin 300 mg Oral Q8H [facility] insulin lispro 0-30 Units Subcutaneous Q4H [facility] methocarbamol 1 g Intravenous Q8H metoprolol 5 mg Intravenous Q6H [facility] pantoprazole 40 mg Intravenous Daily sodium chloride (PF) 10 mL Intracatheter Q8H [facility] sodium chloride (PF) 5 mL Intravenous Q8H [facility] Labs, Imaging and Studies reviewed: Results from last 7 days Lab Units 01/02/23 0400 01/01/23 0454 12/31/22 0501 WBC K/mcL 6.52 6.62 6.44 HGB g/dL 10.2* 10.5* 12.0 HCT % 32.0* 33.4* 36.1 PLT K/mcL 136* 148* 183 Results from last 7 days Lab Units 01/02/23 0400 01/01/23 0454 12/31/22 0501 SODIUM mmol/L 138 137 138 POTASSIUM mmol/L 3.9 4.3 4.4 CHLORIDE mmol/L 103 102 102 BICARB mmol/L 26 26 28 BUN mg/dL 14 17 11 CREATININE mg/dL 0.43* 0.37* 0.46* EGFR mL/min/1.73 m2 98 101 96 GLUCOSE mg/dL 107* 119* 130* CALCIUM mg/dL 8.6 8.3* 8.8 PHOSPHORUS mg/dL 3.5 3.1 3.3 Results from last 7 days Lab Units 12/28/22 0459 ALT U/L 15 AST U/L 19 ALK PHOS U/L 83 BILIRUBIN TOTAL mg/dL 0.4 Surgical Oncology Daily Progress Note Patient Name: Merlyn Perez MR #: [id number] : 1940 Assessment and Plan: 82 y.o. female w/ PMHx of HTN, HLD, anxiety/depression, asthma, GERD, recent admission for CVA (11/27/2022) on Plavix, w/ hx of R frontal, parietal, and L temporal infarctions, h/o CCY who presented to [facility] on 12/17/2022 as transfer from [facility] with RLQ back pain, concern for mass. CT A/P w/ IV contrast (12/16/2022): RLQ mass in distal small bowel exophytic appearing 1.7 x 1.6 cm w/ possible trace amount of blood in lumen, adjacent nodule in RLQ suspicious for reactive/metastatic LN, multiple small reactive LNs in RP and mesentery Terminal ileum Neuroendocrine tumor Recent CVA HTN - s/p l/s R hemicolectomy 12/23 - path - well diff neuroendocrine Grade 1 tumor, neg margins, +03/22 LN, pT2N1 - hold ASA/plavix - NPO, IVF - TPN - NG removed 01/01 - prn pain and nausea control - OOB/IS/AAT DVT ppx Lovenox GI ppx N/A Weekdays 5a-5p [phone] Nights & Weekends [phone] Subjective: Resting comfortably in bed this AM. NG was removed yesterday, and she was able to sleep. Denies nausea. She does feel distended and her abdomen is aching. Appetite increasing and feels she could eat. Had BMs overnight but no flatus. Objective: Vital Signs BP (!) 160/78 Pulse (!) 114 Temp 98.2 F (36.8 C) (Oral) Resp 14 Ht 5' 3 Wt 68.4 kg (150 lb 12.7 oz) SpO2 97% BMI 26.71 kg/m Constitutional NAD Head Normocephalic, atraumatic Ears Grossly normal hearing Eyes EOMI Neck Trachea midline Cardiovascular HDS Chest Non-labored breathing, equal chest rise Abdomen Soft, mild diffuse TTP; mildly distended; no peritoneal signs, incisions w exofin c/d/I Extremities ZARAGOZA Skin Warm, dry, intact Neurologic: No focal deficits Laboratory Studies: Recent laboratory studies reviewed CBC: Results from last 7 days Lab Units 01/02/23 0400 WBC K/mcL 6.52 HGB g/dL 10.2* HCT % 32.0* PLT K/mcL 136* Results from last 7 days Lab Units 01/02/23 0400 01/01/23 0454 12/31/22 0501 HGB g/dL 10.2* 10.5* 12.0 Chem: Results from last 7 days Lab Units 01/02/23 0400 12/29/22 0434 12/28/22 0459 SODIUM mmol/L 138 < > 138 POTASSIUM mmol/L 3.9 < > 3.5 CHLORIDE mmol/L 103 < > 103 BUN mg/dL 14 < > 5* CREATININE mg/dL 0.43* < > 0.35* CALCIUM mg/dL 8.6 < > 8.5 TOTAL PROTEIN g/dL -- -- 5.8* ALK PHOS U/L -- -- 83 ALT U/L -- -- 15 AST U/L -- -- 19 GLUCOSE mg/dL 107* < > 123* < > = values in this interval not displayed. Results from last 7 days Lab Units 01/02/23 0400 01/01/23 0454 12/31/22 0501 CREATININE mg/dL 0.43* 0.37* 0.46* LFT's: Results from last 7 days Lab Units 12/28/22 0459 ALK PHOS U/L 83 BILIRUBIN TOTAL mg/dL 0.4 TOTAL PROTEIN g/dL 5.8* AST U/L 19 ALT U/L 15 Diagnostic Imaging: Recent diagnostic imaging/reports reviewed Nutrition Support Team Daily Progress Note Pertinent clinical issues: KUB reviewed. NGT removed. Remains NPO. BM x12 Current weight: 68.4 kg (150 lb 12.7 oz) Wt change since admit: +0.4kg (68kg) Current TPN prescription: Component Order Dose Admin Dose parenteral amino acid 15% no.6 15 % Solp 80 g/day 79.95 g dextrose 70% Solp 240 g/day 240.1 g fat emulsion (INTRALIPID,LIPOSYN) 20 % Emul 45 g/day 225 mL sterile water Solp 486.95 mL/day 486.95 mL sodium chloride (CONC 23.4%) 4 mEq/mL Solp 100 mEq 100 mEq potassium acetate 2 mEq/mL Soln 60 mEq 60 mEq potassium phosphate 3 mmol/mL Soln 20 mmol 20 mmol calcium gluconate 100 mg/mL (10%) Soln 8 mEq 1.7 g magnesium sulfate 4 mEq/mL (50 %) Soln 10 mEq 10 mEq mvi, adult no.4 with vit K 3,300 unit- 150 mcg/10 mL Soln 10 mL 10 mL trace elements Zn-Cu-Mn-Se 3 mg-0.3 mg-55 mcg-60 mcg/mL Soln 1 mL 1 mL TPN at 70ml/hr provides 1586kcal and 80g protein. MIVF: none Pertinent labs: Recent Labs 12/31/22 0501 01/01/23 0454 01/02/23 0400 NA 138 137 138 K 4.4 4.3 3.9 BICARB 28 26 26 CL 102 102 103 GLUCOSE 130* 119* 107* BUN 11 17 14 CREATININE 0.46* 0.37* 0.43* MG 2.1 2.0 2.1 PHOS 3.3 3.1 3.5 FSB-130, 0 units corrective insulin within the past 24h TPN Changes: -No changes to current TPN rx Lolis Ku RD, LD, [facility] 01/01/2023 Merlyn Perez 1940 [id number] Assessment/Plan: Merlyn Perez is a 82 y.o. female with a history of HTN and recent CVA 11/27/22 who presented to [facility] 12/14/22 and again 12/16/22 for recurrent abdominal pain. OSH CT C/A/P 12/17/22 noted RLQ mass and enlarged mediastinal LNs, RLL pulmonary nodule. Transferred to [facility] 12/17/2022 for SurgOnc evaluation. 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 Course complicated with ileus s/p NGT. Neuroendocrine Tumor: Presented as above. C-scope 12/20/[address] non-[address] CT A&P 12/21/22 concerned for RLQ malignancy s/p right colectomy with terminal ileum resection 12/23/[address] Deras. 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 PICC placed for TPN. Pain control, Pain Management following. Monitor respiratory status with IV narcotics. Ileus: confirmed on KUB 12/25/22, s/p NGT 12/25 with good output, had to be replaced 12/[address] A&P 12/26 with edematous bowel but no perforation, KUB 12/27 with ileus vs pSBO, CT A/P 12/30/22 with evolving ileus. Clamp NG 01/01/23 +/- remove pending volume. SurgOnc following Leukocytosis: reactive to surgery. Afebrile, no infectious symptoms, resolved. Epigastric Pain: GI followed, s/p negative EGD 12/20/22. Acute Metabolic Encephalopathy: transient, likely with baseline cognitive impairment and receiving Dilaudid. Resolved. Lymphadenopathy: noted on OSH CT C/A/P as mentioned above. Pulmonary followed, follow-up CT in [address] A&P 12/21 with 14mm LLL nodule along with several non-specific nodules. Outpatient follow-up. Recent CVA: with residual left facial droop, mild dysarthria. Hospitalized 11/27/22. Neurology followed, OSH MRI brain reviewed, tiny stroke burden. Restart AP as able and statin.Follow-up outpatient with [facility] (AVS updated). HTN Urgency: per hx, amlodipine, atenolol, lisinopril and Lasix held given NPO status. On scheduled IV metoprolol and has PRNs. Pain control given this is the source of elevated BP. Uterine Prolapse: Follows with Dr. Hartley in [place]. PVR unremarkable this admission. Dr. Smiley (uro-nut sorter) declined pessary this admission, ok to follow up at home. May require intermittent straight cath if urinary retention noted. Code Status: full, discussed on admit. DVT Prophylaxis: Lovenox. Current living situation: home. Expected disposition: SNF vs C. Estimated discharge date: 3-4 days pending specialty clearance. *Family updated bedside 12/31. Subjective: No acute events overnight, abdomen appears slightly less distended, forging press lever tender with ongoing abdominal pain. Attempting to limit pain medication in the settling of post op ileus although trying to balance uncontrolled pain as well. Careful monitoring of respiratory status while on IV opiates Physical Exam: BP (!) 158/80 Pulse (!) 128 Temp 98.7 F (37.1 C) (Oral) Resp 16 Ht 5' 3 Wt 68.4 kg (150 lb 12.7 oz) SpO2 94% BMI 26.71 kg/m General: Mild distress due to pain. Eyes: EOMI. ENT: Neck supple. NGT in place. Cardiovascular: Regular rate. Respiratory: Clear to auscultation. Gastrointestinal: Soft, generalized tenderness, non-peritoneal. Genitourinary: No suprapubic tenderness. Musculoskeletal: No edema. Skin: Warm, dry. Neuro: Alert. Psych: Mood appropriate. Current Medications: acetaminophen 1,000 mg Intravenous Q8H enoxaparin (LOVENOX) injection 40 mg Subcutaneous Daily gabapentin 300 mg Tube Q8H [facility] insulin lispro 0-30 Units Subcutaneous Q4H [facility] methocarbamol 1 g Intravenous Q8H metoprolol 5 mg Intravenous Q6H [facility] pantoprazole 40 mg Intravenous Daily sodium chloride (PF) 10 mL Intracatheter Q8H [facility] sodium chloride (PF) 5 mL Intravenous Q8H [facility] Labs, Imaging and Studies reviewed: Results from last 7 days Lab Units 01/01/2345312/31/22 05012/30/22441 WBC K/mcL 6.62 6.44 5.76 HGB g/dL 10.5* 12.0 10.4* HCT % 33.4* 36.1 32.7* PLT K/mcL 148* 183 137* Results from last 7 days Lab Units 01/01/2345312/31/22 05012/30/22441 SODIUM mmol/L 137 138 138 POTASSIUM mmol/L 4.3 4.4 4.0 CHLORIDE mmol/L 102 102 102 BICARB mmol/L 26 28 27 BUN mg/dL 17 11 8 CREATININE mg/dL 0.37* 0.46* 0.29* EGFR mL/min/1.73 m2 101 96 108 GLUCOSE mg/dL 119* 130* 108* CALCIUM mg/dL 8.3* 8.8 8.3* PHOSPHORUS mg/dL 3.1 3.3 3.5 Results from last 7 days Lab Units 12/28/22458 ALT U/L 15 AST U/L 19 ALK PHOS U/L 83 BILIRUBIN TOTAL mg/dL 0.4 Nutrition Support Team Daily Progress Note Pertinent clinical issues: CT abdomen pending. NGT clamp trial today, +420ml past 24 hrs. Current weight: 68.4kg (12/31) Wt change since admit: +0.4kg (68kg 12/17) TPN: 80g AA, 240g Dextrose, 45g ILE at 70ml/hr TPN Provides: 1586 kcal, 80g protein Custom TPN additives in mEq/d: 100 NaCl, 60 KAc, 20 KPhos, 8 CaGluc, 10 MgSO4, 0 units insulin, additional additives: MVI, 1ml trace elements. MIVF: n/a Recent Labs 01/01/23 0454 NA 137 K 4.3 BICARB 26 CL 102 GLUCOSE 119* BUN 17 CREATININE 0.37* MG 2.0 PHOS 3.1 FSB-129, 0 units corrective insulin within the past 24h TPN Changes: -No changes to current TPN rx. Radha Del Valle RD, LD, [facility] Surgical Oncology Daily Progress Note Patient Name: Merlyn Perez MR #: [id number] : 1940 Assessment and Plan: 82 y.o. female w/ PMHx of HTN, HLD, anxiety/depression, asthma, GERD, recent admission for CVA (11/27/2022) on Plavix, w/ hx of R frontal, parietal, and L temporal infarctions, h/o CCY who presented to [facility] on 12/17/2022 as transfer from [facility] with RLQ back pain, concern for mass. CT A/P w/ IV contrast (12/16/2022): RLQ mass in distal small bowel exophytic appearing 1.7 x 1.6 cm w/ possible trace amount of blood in lumen, adjacent nodule in RLQ suspicious for reactive/metastatic LN, multiple small reactive LNs in RP and mesentery Terminal ileum Neuroendocrine tumor Recent CVA HTN - s/p l/s R hemicolectomy 12/23 - path - well diff neuroendocrine Grade 1 tumor, neg margins, +03/22 LN, pT2N1 - hold ASA/plavix - NPO, IVF - NG to SD - OOB/IS/AAT - prn pain and nausea control - will plan for clamp trial NG tube today, possible removal if output low enough DVT ppx Lovenox GI ppx N/A Weekdays 5a-5p [phone] Nights & Weekends [phone] Subjective: Uncomfortable appearing this AM, but overall stable. Had small liquid BM overnight but no flatus. Objective: Vital Signs BP (!) 151/79 Pulse (!) 119 Temp 98.7 F (37.1 C) (Oral) Resp 16 Ht 5' 3 Wt 68.4 kg (150 lb 12.7 oz) SpO2 94% BMI 26.71 kg/m Constitutional NAD Head Normocephalic, atraumatic Ears Grossly normal hearing Eyes EOMI Neck Trachea midline Cardiovascular HDS Chest Non-labored breathing, equal chest rise Abdomen Soft, mild diffuse TTP; mildly distended; no peritoneal signs, incisions w exofin c/d/I. NG with brown output Extremities ZARAGOZA Skin Warm, dry, intact Neurologic: No focal deficits Laboratory Studies: Recent laboratory studies reviewed CBC: Results from last 7 days Lab Units 01/01/23 045 WBC K/mcL 6.62 HGB g/dL 10.5* HCT % 33.4* PLT K/mcL 148* Results from last 7 days Lab Units 01/01/23 0454 12/31/22 0501 12/30/22 044 HGB g/dL 10.5* 12.0 10.4* Chem: Results from last 7 days Lab Units 01/01/23 0454 12/29/22 0434 12/28/22 045 SODIUM mmol/L 137 < > 138 POTASSIUM mmol/L 4.3 < > 3.5 CHLORIDE mmol/L 102 < > 103 BUN mg/dL 17 < > 5* CREATININE mg/dL 0.37* < > 0.35* CALCIUM mg/dL 8.3* < > 8.5 TOTAL PROTEIN g/dL -- -- 5.8* ALK PHOS U/L -- -- 83 ALT U/L -- -- 15 AST U/L -- -- 19 GLUCOSE mg/dL 119* < > 123* < > = values in this interval not displayed. Results from last 7 days Lab Units 01/01/23 0454 12/31/22 0501 12/30/22441 CREATININE mg/dL 0.37* 0.46* 0.29* LFT's: Results from last 7 days Lab Units 12/28/22 045 ALK PHOS U/L 83 BILIRUBIN TOTAL mg/dL 0.4 TOTAL PROTEIN g/dL 5.8* AST U/L 19 ALT U/L 15 Diagnostic Imaging: Recent diagnostic imaging/reports reviewed Associated attestation - Jamir Miller MD - 01/01/2023 9:27 AM EDT Resident's H&P note reviewed. I personally examined this patient and reviewed all pertinent data. A thorough examination of remaining 10 point review of systems did not reveal any pertinent positive or negative findings except those described in the resident's note. Clamp GTube, check in 4 hrs Output is minimal and not bilious Having bowel function Physical Therapy PHYSICAL THERAPY TREATMENT NOTE Skilled Therapy Needs After Discharge Anticipate Resolution of Current Assessment Limitations Including: Pain, Mechanical Barriers Are Skilled Therapy Services Needed After Discharge: Yes Intensity of Skilled Therapy: 5 to 7 days per week Anticipated Duration of Skilled Therapy: Duration 10 - 30 days DME Recommendation: To be determined at next level of care Rehab Potential: Good, For goals Outcomes Measures Prior Function - Basic Mobility Raw Score: 24 Points Prior Function - Basic Mobility % Impaired: 0% AM-PAC Basic Mobility Raw Score: 17 Points AM-PAC Basic Mobility % Impaired: 43.83% Activity Tolerance Activity Tolerance: Tolerates 30 min acitivty with multiple rests Therapy Precautions Orthotic Devices: No Weight Bearing Status: WFL General Rehab Precautions: Fall risk, Abdominal Balance Sitting Balance - Static: Stand by assist Sitting Balance - Dynamic: Contact guard assist, Stand by assist Sitting Balance Treatment: weight shifting anterior, weight shifting posterior Skilled Intervention Provided: verbal cues, facilitation, patient education For: UE positioning, LE positioning, attention to task, midline orientation, necessary precautions, self-monitoring during activity Resulting in: improved activity tolerance, improved functional independence, improved performance, improved safety Standing Balance - Static: Contact guard assist Emergency Room Rn - Standing Static: wheeled walker Loss of Balance- Standing Static: multidirectional (postural sway) Standing Balance - Dynamic: Contact guard assist Emergency Room Rn - Standing Dynamic: wheeled walker Loss of Balance- Standing Dynamic: multidirectional Standing Balance Treatment: weight shifting anterior, weight shifting posterior Skilled Intervention Provided: verbal cues, tactile cues, facilitation For: UE positioning, LE positioning, midline orientation, postural alignment, safe use of AD and/or equipment, self-monitoring during activity, trunk control, weight shifting Resulting in: improved activity tolerance, improved awareness, improved functional independence, improved performance Bed Mobility Supine to Sit: (in chair at begining of session) Sit to Supine: Head of bed elevated, Moderate assist Emergency Room Rn: bedrails, bed positioning mechanics Skilled Intervention Provided: verbal cues, tactile cues, facilitation, monitoring patient response with activity, neuromuscular re-education, provided step by step instructions, patient education For: UE positioning, LE positioning, attention to task, efficient movement, logroll technique, necessary precautions, postural alignment, safe use of bedrails and/or equipment, safety during functional tasks, self-monitoring during activity, sequencing of movement Resulting in: improved activity tolerance, improved performance, improved safety Transfers Sit to Stand: Contact guard assist Bed to Chair: Contact guard assist Emergency Room Rn: wheelchair Skilled Intervention Provided: verbal cues, tactile cues, facilitation, monitoring patient response with activity, monitoring patient response with positional changes, patient education For: UE positioning, controlled descent, efficient movement, midline orientation, safety during functional tasks, safe use of AD and/or equipment, self-monitoring during activity Resulting in: improved activity tolerance, improved functional independence, improved safety, improved performance Toilet Transfers: Contact guard assist Emergency Room Rn: RUE (grab bars) Skilled Intervention Provided: verbal cues, tactile cues, facilitation, patient education For: UE positioning, controlled descent, safety during functional tasks, safe use of AD and/or equipment, self-monitoring during activity Resulting in: improved activity tolerance, improved performance, improved safety Gait/Locomotion Gait Assistance: Contact guard assist Assistive Device: wheeled walker Distance: 10 Feet Rest Breaks: Yes Rest Break Position: seated Rest Break Duration: ~10 minutes to use bathroom Additional Gait Trial 2: Yes Gait Assistance Trial 2: Contact guard assist Assistive Device Trial 2: wheeled walker Distance Trial 2: 35 Pattern: step through, R impaired heel strike, L impaired heel strike, R decreased step length, L decreased step length, narrow base of support, decreased larry (steps per minute) Weight Bearing Status: able to maintain Gait Loss(es) of Balance: (postural sway) Environment/Terrain: closed environment, minimal to no distractions Skilled Intervention Provided: verbal cues, tactile cues, facilitation, monitoring patient response with activity, patient education For: attention to task, device management and safe use of device, dual task - cognitive, gait sequence, improved posture, UE positioning, obstacle negotiation, pathfinding, self-monitoring during activity, visual attention / awareness / scanning Resulting in: improved activity tolerance, improved functional independence, improved performance, improved safety Additional Treatment Details Review of abdominal precautions. Pt with increased pain and more lethargic this session. Pt with noted abdominal bracing throughout session d/t increased pain. Required constant cueing to keep UEs on WW. Pt required mod cueing for proper logroll technique to maintain abdominal precautions. Home Living Obtained Home Living and PLOF info from: Patient, Patient s family member Lives With: Alone (Daughter able to assist) Type of Home: House Home Layout: One level, Laundry in basement, Stairs between floors (working on bringing laundry up to main level) Rails on inside stairs: 1 rail Number of stairs inside home: 12 Bathroom Shower/Tub: Tub/shower unit (pt showers or sits in tub to bathe) Bathroom Toilet: Standard Bathroom Equipment: (none) Bathroom Accessibility: Accessible Mobility Equipment: (none per pt) Additional Objective Details - Home Living: Daughter completes financial services representative, medication management (post CVA, prior to CVA, pt was independent w/ med management). Pt endorsing x1 fall recently Prior Level of Function Level of Sherman - Transfers/Ambulation/Mobility: Independent with household ambulation, Independent with functional transfers Level of [place] - ADLs: Independent Level of [place] - Homemaking: Independent Driving: Patient drives (pt's daughter assist (states has not been driving as much recently)) For complete objective data, detailed plan of care and patient education refer to: PT Evaluation flowsheet, PT Evaluation and Treatment flowsheet, PT Treatment flowsheet, patient Plan of Care, Plan of Care progress note, and Patient Education. This note stands as the current Discharge Summary upon patient discharge from the hospital or completion of Physical Therapy Plan of Care. Nutrition Care Follow Up Monitoring and Evaluation: TPN provided to meet estimated needs Nutrition Diagnosis: Inadequate oral food/beverage intake related to alteration in GI tract structure and/or function as evidenced by NPO, need for parenteral nutrition. Not Resolved Nutrition Intervention: Continue Parenteral Nutrition Nutrition Prescription: Diet: NPO except ice chips Adult TPN: see NST documentation Nutrition Goals: TPN to meet nutrition needs until oral/enteral route established. 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 TPN continues. NGT: 675ml. CT 12/30 with improvement. Current ht:5' 3 Current wt:.68.4 kg (150 lb 12.7 oz) Body mass index is 26.71 kg/m . BMI Classification: Overweight (25-29.9) Wt hx: Admission weight 68kg (12/17) Wt Readings from Last 5 Encounters: 12/31/22 68.4 kg (150 lb 12.7 oz) Current diet order: NPO, TPN Recent intake: TPN @70 ml/hr per flowsheet - Current intake meets estimated needs. - Patient/family comments: Answered family questions regarding TPN. Difficulty Chewing/Swallowing: No Edema: no peripheral vascular edema documented per flowsheet Skin Integrity: trocar sites to abdomen per flowsheet GI Function: LBM 12/29/22 , abdomen distended per flowsheet Labs: Recent Labs 12/31/22 0501 NA 138 K 4.4 BICARB 28 CL 102 GLUCOSE 130* BUN 11 CREATININE 0.46* MG 2.1 PHOS 3.3 Scheduled Meds: acetaminophen 1,000 mg Intravenous Q8H enoxaparin (LOVENOX) injection 40 mg Subcutaneous Daily gabapentin 300 mg Tube Q8H JOSH insulin lispro 0-30 Units Subcutaneous Q4H JOSH methocarbamol 1 g Intravenous Q8H metoprolol 5 mg Intravenous Q6H JOSH pantoprazole 40 mg Intravenous Daily sodium chloride (PF) 10 mL Intracatheter Q8H JOSH sodium chloride (PF) 5 mL Intravenous Q8H JOSH Continuous Infusions: Adult TPN 70 mL/hr at 12/30/222207 Adult TPN dextrose sodium chloride 0.9 % Stopped (12/24/222140) Estimated Energy Needs Total Energy Estimated Needs: 4353-1944 Method for Estimating Needs: 22-25 kcals/kg IBW (BMI 24.9: 64kg) Total Protein Estimated Needs: 76-96g Method for Estimating Needs: 1.2-1.5g/kg IBW (BMI 24.9: 64kg) Fluid Needs Total Fluid Estimated Needs: 7388-0348 Method for Estimating Needs: 22-25ml/kg IBW (BMI 24.9: 64kg) Assessed By: JOSE ANTONIO Borden, MARYSOL, LD Date: 12/31/2022 Patient name: Merlyn Perez Date Of : 1940 Admit Date: 12/17/2022 Back pain Assessment & Plan Reason For Hospitalization: ICD-10 M54.9 Merlyn Perez presented 12/17/2022 a 82 y.o. female with a history of HTN and recent CVA 11/27/22 who presented to [facility] 12/14/22 and again 12/16/22 for recurrent abdominal pain. OSH CT C/A/P 12/17/22 noted enlarged mediastinal LNs with 5 mm RLL pulmonary nodule and RLQ 1.7x1.6cm mass abbutting the distal small bowel. Transferred to [facility] 12/17/2022 for SurgOnc evaluation. 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 Course complicated 12/25 with ileus s/p NGT. Assessment: Merlyn was sitting in the recliner chair with feet elevated on foot rest, eyes closed, but awake. States she has aching pain across the right eye x 2 days. Continues to report abdominal aching that is worse on the right side and back pain at the kidney area. States she had a rough night last night with pain, but for the past 2 hours, pain has been tolerable. SL Morphine caused pt to be agitated and confused, will rotate back to SL Oxycodone. IV Morphine and Gabapentin works best for patient's pain. Pt states she is hungry. NG in place. States continued no BM or flatus. Pt notes that she does not like opiate pain medications and has concerns about addiction. Previous Note Pt reports right low back pain that radiates all the way around her waist that has been present since December 16. She is also reporting stomach bloating. States she hadn't eaten in 10 days and her electrolytes were off. She was put on IV Potassium and it caused muscle cramping, so was started on IVPB Robaxin, which was helpful. Pt expresses that she does not like opiate pain medications and has concerns about addiction. Had undesirable side effects with IV Dilaudid. Morphine made her itch, but did take the edge off. Using Benadryl with the IV Morphine caused similar side effect as Dilaudid. Lidocaine patch is not helpful and would like to discontinue. Feels that IV Tylenol is helpful as well as Gabapentin, but interested in spreading dose of Gabapentin out as it does cause some drowsiness. Gabapentin was discontinued at this time per surgery as pt NPO. Plan: Continue Morphine 1-2 mg IV Q 4 H PRN BTP, caution sedation, use oral opiate first Rotate back to Oxycodone 5 mg SL Q 4 H PRN, caution sedation Continue OFIRMEV 1,000 mg IVPB Q 8 H per primary team Continue Robaxin 1 gram IVPB Q 8 H x 3 days per surgery Continue Gabapentin 300 mg Q 8 H Discontinued/Completed Therapies Lidocaine patch, pt states not helpful Gabapentin 100 mg PO TID, discontinued per surgery at pt NPO Robaxin 1 gram IV Q 8 H x 48 hours, complete Oxycodone 5 mg SL Q 4 H PRN, rotated to oral Morphine due to drowsiness oral Morphine 10 mg SL Q 4 H PRN, caused agitation and confusion Acute Findings/Imaging/Procedures XR Abdomen AP 12/27/2022 IMPRESSION: 1. Scattered contrast in the colon extending into the rectum. 2. Several gas distended small bowel loops may reflect ileus or partial small bowel obstruction, grossly unchanged. 3. NG tube side port at the level of the diaphragm. This should be advanced at least 3 cm and then be rechecked. CT Abdomen Pelvis With Contrast 12/26/2022 IMPRESSION: 1. Long segment of thick-walled edematous distal small bowel to the ileocolonic anastomosis. This finding is nonspecific at this time, although the possibly of early ischemia should be considered. There is no bowel pneumatosis or signs of bowel perforation. 2. Mildly dilated small bowel proximal to the thickened segment. The oral contrast given is present throughout the small bowel to the anastomosis. 3. Moderate scattered free fluid within the abdomen and pelvis and mild mesenteric edema. Free fluid is water attenuation with the exception of a small amount of layering debris or blood products in the posterior peritoneal cavity of the pelvis. 4. Nasogastric tube tip position within the gastric body. Stomach is nondistended. 5. No acute abnormality of the solid organs. 6. Additional stable nonemergent findings as above. Disposition/Ongoing Plan: TBD Substance Use History: Tobacco Use: Denies EtOH Use: Yes, 1-2 glasses of white wine 3-4 times per month THC/CBD Use: Denies Illicit Substance Use: Denies Obtain/Use Medications not prescribed to you: Denies OARRS Reviewed: None reported Chief Complaint/Reason for Visit: 1. Pulmonary nodule 2. Abdominal pain, unspecified abdominal location 3. Abdominal mass, unspecified abdominal location 4. Colonic mass History of Present Illness: Merlyn Perez is a 82 y.o. y/o female presenting 12/17/2022 who presented to [facility] 12/14/22 and again 12/16/22 for recurrent abdominal pain. OSH CT C/A/P 12/17/22 noted enlarged mediastinal LNs with 5 mm RLL pulmonary nodule and RLQ 1.7x1.6cm mass abbutting the distal small bowel. Transferred to [facility] 12/17/2022 for SurgOnc evaluation. 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 Course complicated 12/25 with ileus s/p NGT. During rounding visit 12/31/2022 Merlyn was sitting in the recliner chair with feet elevated on foot rest, NG to LWS with clear substance in cannister. Pt is awake, but has her eyes closed. Daughter present. States she has had aching pain across the right eye x 2 days. She continues to have abdominal aching, R>L, states she is hungry. Has not had a BM or flatus. Did not like side effects of oral Morphine, it caused agitation and confusion. Will rotate back to SL Oxycodone. States Gabapentin and IV Morphine work best for her pain. Pain is currently tolerable, but had a rough night last night. Will continue to reassess and make changes as needed. Denies side effects/sedation on current regimen. History: Past Medical History: Diagnosis Date Hypertension Stroke (HCC) Past Surgical History: Procedure Laterality Date COLECTOMY LAPAROSCOPIC RIGHT N/A 12/23/2022 Procedure: LAPAROSCOPIC RIGHT COLECTOMY; Surgeon: Kell Deras MD; Location: [facility] Main OR; Service: General Surgery COLONOSCOPY N/A 12/20/2022 Procedure: COLONOSCOPY; Surgeon: Storm Byers MD; Location: [facility] Endo; Service: Gastroenterology EGD N/A 12/20/2022 Procedure: ESOPHAGOGASTRODUODENOSCOPY; Surgeon: Storm Byers MD; Location: [facility] Endo; Service: Gastroenterology History reviewed. No pertinent family history. Social History Socioeconomic History Marital status: Tobacco Use Smoking status: Never Passive exposure: Past Smokeless tobacco: Never Vaping Use Vaping status: Never Used Passive vaping exposure: Yes Substance and Sexual Activity Alcohol use: Not Currently Drug use: Never Allergy Information: I have reviewed the patient's allergies. Amlodipine Home Medications: Outpatient Medications as of 12/31/2022 Medication Sig amLODIPine (NORVASC) 2.5 MG tablet Take 1 (one) tablet (2.5 mg total) by mouth daily . aspirin 81 mg chewable tablet Chew and Swallow 1 (one) tablet (81 mg total) . atenoloL (TENORMIN) 50 MG tablet Take 1.5 (one and a half) tablets (75 mg total) by mouth daily . calcium carbonate (TUMS) 200 mg calcium (500 mg) chewable tablet Chew and Swallow 1 (one) tablet (500 mg total) 3 (three) times a day . clopidogreL (PLAVIX) 75 mg tablet Take 1 (one) tablet (75 mg total) by mouth daily . furosemide (LASIX) 20 MG tablet Take 1 (one) tablet (20 mg total) by mouth daily . lisinopriL (PRINIVIL,ZESTRIL) 20 MG tablet Take 1 (one) tablet (20 mg total) by mouth 2 (two) times a day . omeprazole (PRILOSEC) 40 MG capsule Take 1 (one) capsule (40 mg total) by mouth daily . Review of Systems: The following system(s) were reviewed and pertinent findings noted: All other systems reviewed and negative other than HPI Physical Examination: Vital Signs: BP (!) 156/83 (BP Location: Right arm, Patient Position: Lying) Pulse (!) 124 Temp 98 F (36.7 C) (Oral) Resp 16 Ht 5' 3 Wt 68.4 kg (150 lb 12.7 oz) SpO2 94% BMI 26.71 kg/m General: Awake/Alert, but drowsy, cooperative, no distress, appears stated age Head: Normocephalic, without obvious abnormality, atraumatic, right nare NG Eyes: Conjunctiva/corneas clear, EOM intact Throat: Lips, mucosa, and tongue normal; teeth and gums normal Neck: Symmetrical, trachea midline Back: Symmetric, no obvious curvature Lungs: Respirations unlabored,normal respiratory effort Chest Wall: No tenderness or deformity Cardiovascular: Regular rate Genitourinary Not examined Abdomen: Distended Skin: Skin color wnl, no rashes or lesions Musculoskeletal: ZARAGOZA x 4, no joint edema Neurologic: Oriented, follows commands, gross strength and sensation intact Psych: Mood and affect appropriate Intake/Output last 3 shifts: I/O last 3 completed shifts: In: - Out: 2149 [Urine:1200; Emesis/NG output:950] Medications: Scheduled Meds: acetaminophen 1,000 mg Intravenous Q8H enoxaparin (LOVENOX) injection 40 mg Subcutaneous Daily gabapentin 300 mg Tube Q8H JOSH insulin lispro 0-30 Units Subcutaneous Q4H JOSH methocarbamol 1 g Intravenous Q8H metoprolol 5 mg Intravenous Q6H JOSH pantoprazole 40 mg Intravenous Daily sodium chloride (PF) 10 mL Intracatheter Q8H JOSH sodium chloride (PF) 5 mL Intravenous Q8H JOSH Continuous Infusions: Adult TPN 70 mL/hr at 12/30/222207 Adult TPN dextrose sodium chloride 0.9 % Stopped (12/24/222140) PRN Meds: alteplase, aluminum-magnesium hydroxide-simethicone, benzonatate, dextrose, diphenhydrAMINE-zinc acetate, guaiFENesin, hydrALAZINE, labetalol, melatonin, morphine injection, nalOXone AND Notify physician AND naloxone, ondansetron OR ondansetron, oxyCODONE, simethicone, sodium chloride (PF), Saline lock IV AND sodium chloride (PF) AND sodium chloride (PF) AND sodium chloride 0.9 % Laboratory and Additional Data Reviewed: Laboratory 12/31/22 Microbiology 12/31/22 Pathology 12/31/22 Radiology 12/31/22 Cardiology 12/31/22 Medications 12/31/22 Transcriptions 12/31/22 Drugs of Abuse 12/31/22 Assessment Detail: The total time spent for this visit was 25 minutes. Greater than 50% of the time was spent in counseling and coordination of care regarding pain control and plan Please note that plan to help manage symptoms will include maximizing adjunctive agents and developing a multi-modal treatment plan. If opiate based medications are being used, we have talked about the risk and benefits of using this class of medication. Discussed with patient that there is a risk that opioid addiction could occur, meaning that he/she might become psychologically dependent on the medication and also discussed possible side effects/adverse events associated with narcotics Goal will be to use opiates at lowest effective doses for shortest period of time to help manage acute pain Discussed with Merlyn Perez about realistic expectation surrounding pain control- as being pain free is unlikely Discussed safety is paramount while trying to keep them as comfortable as possible Occupational Therapy OCCUPATIONAL THERAPY TREATMENT NOTE Skilled Therapy Needs After Discharge Anticipate Resolution of Current Assessment Limitations Including: Pain, Mechanical Barriers Are Skilled Therapy Services Needed After Discharge: Yes Intensity of Skilled Therapy: 5 to 7 days per week Anticipated Duration of Skilled Therapy: Duration 10 - 30 days DME Recommendation: To be determined at next level of care Rehab Potential: Excellent Outcomes Measures Prior Function Daily Activity Raw Score: 24 Prior Function Daily Activity % Impaired: 0% AM-PAC Daily Activity Raw Score: 16 AM-PAC Daily Activity % Impaired: 53.32% Activity Tolerance Activity Tolerance: Tolerates 20 - 30 min activity with multiple rests Therapy Precautions Orthotic Devices: No General Rehab Precautions: Abdominal, Fall risk Cognition Arousal/Alertness: Delayed responses to stimuli Orientation Level: Oriented X4, With cues Executive functioning: Min impairment, Insight, Sequencing, Planning / Organizing, Processing delay Safety Judgment: Decreased awareness of need for assistance, Decreased awareness of need for safety Problem Solving: Assistance required to identify errors made, Assistance required to generate solutions, Assistance required to implement solutions Attention: Attends to quiet environment Hearing Status: Hard of hearing Social Interaction: Cooperative, Lethargic Comments: Pt able to follow 1 step commands with increased time and occasionally does the opposite, daughter ststes that this is not new, pt has always had this issue. Skilled Intervention Provided: patient education For: preparing for self-care tasks, necessary precautions Resulting In: increased insight into deficits ADL Feeding: Independent (eating icechips with spoon) Grooming: Set-up, Supervision, Increased time to complete Upper Body Bathing: Set-up, Supervision Lower Body Dressing: Contact guard assist, Minimal assist Overall ADL Performance - Skilled Intervention Provided: verbal cues, patient education Overall ADL Performance - For: energy conservation, fall prevention Overall ADL Performance - Resulting In: neutral response to intervention IADL Bed Mobility Functional Transfers Sit to Stand: Contact guard assist Bed to Chair Transfers: Contact guard assist Emergency Room Rn: RUE (IV pole at times) Skilled Intervention Provided: verbal cues For: compensatory strategies, energy conservation Resulting In: improved activity tolerance Exercise Balance Treatment Interventions Additional Treatment Details Pt able to navigate into hallway with increased time, SENIOR HOUSEKEEPER recommended ww but pt declined. Pt fatigues quickly this session. Home Living Obtained Home Living and PLOF info from: Patient, Patient s family member Lives With: Alone (Daughter able to assist) Type of Home: House Home Layout: One level, Laundry in basement, Stairs between floors (working on bringing laundry up to main level) Rails on inside stairs: 1 rail Number of stairs inside home: 12 Bathroom Shower/Tub: Tub/shower unit (pt showers or sits in tub to bathe) Bathroom Toilet: Standard Bathroom Equipment: (none) Bathroom Accessibility: Accessible Mobility Equipment: (none per pt) Additional Objective Details - Home Living: Daughter completes financial services representative, medication management (post CVA, prior to CVA, pt was independent w/ med management). Pt endorsing x1 fall recently Prior Level of Function Level of [place] - Transfers/Ambulation/Mobility: Independent with household ambulation, Independent with functional transfers Level of [place] - ADLs: Independent Level of [place] - Homemaking: Independent Driving: Patient drives (pt's daughter assist (states has not been driving as much recently)) For complete objective data, detailed plan of care and patient education refer to: OT Evaluation flowsheet, OT Evaluation and Treatment flowsheet, OT Treatment flowsheet, patient Plan of Care, Plan of Care progress note, and Patient Education. This note stands as the current Discharge Summary upon patient discharge from the hospital or completion of Occupational Therapy Plan of Care. NUTRITION SUPPORT TEAM DAILY PROGRESS NOTE Pertinent clinical issues: NPO except ice. NGT: 675. CT 12/30 with improvement. LBM 12/29 Current weight: 68.4kg Wt change since admit: +0.4kg (68kg 12/17) Current TPN Prescription: Component Order Dose Admin Dose parenteral amino acid 15% no.6 15 % Solp 80 g/day 79.95 g dextrose 70% Solp 240 g/day 240.1 g fat emulsion (INTRALIPID,LIPOSYN) 20 % Emul 45 g/day 225 mL sterile water Solp 486.95 mL/day 486.95 mL sodium chloride (CONC 23.4%) 4 mEq/mL Solp 100 mEq 100 mEq potassium acetate 2 mEq/mL Soln 60 mEq 60 mEq potassium phosphate 3 mmol/mL Soln 20 mmol 20 mmol calcium gluconate 100 mg/mL (10%) Soln 8 mEq 1.7 g magnesium sulfate 4 mEq/mL (50 %) Soln 10 mEq 10 mEq mvi, adult no.4 with vit K 3,300 unit- 150 mcg/10 mL Soln 10 mL 10 mL trace elements Zn-Cu-Mn-Se 3 mg-0.3 mg-55 mcg-60 mcg/mL Soln 1 mL 1 mL TPN at 70ml/hr provides 1586 kcals, 80g PRO MIVF: none Recent Labs 12/29/22 0434 12/30/22 0442 12/31/22 0501 NA 139 138 138 K 4.0 4.0 4.4 BICARB 28 27 28 CL 104 102 102 GLUCOSE 111* 108* 130* BUN 6* 8 11 CREATININE 0.37* 0.29* 0.46* MG 1.9 2.0 2.1 PHOS 2.7* 3.5 3.3 FSB-127 x24hrs; 0 units corrective insulin within the past 24hr TPN Changes: -no change in current TPN rx Shraddha Gomez RD, LD, [facility] 12/31/2022 Merlyn Perez 1940 [id number] Assessment/Plan: Merlyn Perez is a 82 y.o. female with a history of HTN and recent CVA 11/27/22 who presented to [facility] 12/14/22 and again 12/16/22 for recurrent abdominal pain. OSH CT C/A/P 12/17/22 noted RLQ mass and enlarged mediastinal LNs, RLL pulmonary nodule. Transferred to [facility] 12/17/2022 for SurgOnc evaluation. 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 Course complicated with ileus s/p NGT. Neuroendocrine Tumor: Presented as above. C-scope 12/20/[address] A&P 12/21/22 concerned for RLQ malignancy s/p right colectomy with terminal ileum resection 12/23/[address] Deras. 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 PICC placed for TPN. Pain control, Pain Management following. Monitor respiratory status with IV narcotics. Ileus: confirmed on KUB 12/25/22, s/p NGT 12/25 with good output, had to be replaced 12/[address] A&P 12/26 with edematous bowel but no perforation, KUB 12/27 with ileus vs pSBO, CT A/P 12/30/22 with evolving ileus. SurgOnc following Leukocytosis: reactive to surgery. Afebrile, no infectious symptoms, resolved. Epigastric Pain: GI followed, s/p negative EGD 12/20/22. Acute Metabolic Encephalopathy: transient, likely with baseline cognitive impairment and receiving Dilaudid. Resolved. Lymphadenopathy: noted on OSH CT C/A/P as mentioned above. Pulmonary followed, follow-up CT in [address] A&P 12/21 with 14mm LLL nodule along with several non-specific nodules. Outpatient follow-up. Recent CVA: with residual left facial droop, mild dysarthria. Hospitalized 11/27/22. Neurology followed, OSH MRI brain reviewed, tiny stroke burden. Restart AP as able and statin.Follow-up outpatient with [facility] (AVS updated). HTN Urgency: per hx, amlodipine, atenolol, lisinopril and Lasix held given NPO status. On scheduled IV metoprolol and has PRNs. Pain control given this is the source of elevated BP. Uterine Prolapse: Follows with Dr. Hartley in [place]. PVR unremarkable this admission. Dr. Smiley (uro-nut sorter) declined pessary this admission, ok to follow up at home. May require intermittent straight cath if urinary retention noted. Code Status: full, discussed on admit. DVT Prophylaxis: Lovenox. Current living situation: home. Expected disposition: SNF vs [facility]. Estimated discharge date: 3-4 days pending specialty clearance. *Family updated bedside 12/31. Subjective: No acute events overnight, abdomen appears slightly less distended, forging press lever tender with ongoing abdominal pain. Attempting to limit pain medication in the settling of post op ileus although trying to balance uncontrolled pain as well. Careful monitoring of respiratory status while on IV opiates Physical Exam: BP (!) 156/83 (BP Location: Right arm, Patient Position: Lying) Pulse (!) 124 Temp 98 F (36.7 C) (Oral) Resp 16 Ht 5' 3 Wt 68.4 kg (150 lb 12.7 oz) SpO2 94% BMI 26.71 kg/m General: Mild distress due to pain. Eyes: EOMI. ENT: Neck supple. NGT in place. Cardiovascular: Regular rate. Respiratory: Clear to auscultation. Gastrointestinal: Soft, generalized tenderness, non-peritoneal. Genitourinary: No suprapubic tenderness. Musculoskeletal: No edema. Skin: Warm, dry. Neuro: Alert. Psych: Mood appropriate. Current Medications: acetaminophen 1,000 mg Intravenous Q8H enoxaparin (LOVENOX) injection 40 mg Subcutaneous Daily gabapentin 300 mg Tube Q8H [facility] insulin lispro 0-30 Units Subcutaneous Q4H [facility] methocarbamol 1 g Intravenous Q8H metoprolol 5 mg Intravenous Q6H [facility] pantoprazole 40 mg Intravenous Daily sodium chloride (PF) 10 mL Intracatheter Q8H [facility] sodium chloride (PF) 5 mL Intravenous Q8H [facility] Labs, Imaging and Studies reviewed: Results from last 7 days Lab Units 12/31/22 0501 12/30/22 0442 12/29/22 0434 WBC K/mcL 6.44 5.76 8.12 HGB g/dL 12.0 10.4* 11.0* HCT % 36.1 32.7* 34.1* PLT K/mcL 183 137* 165 Results from last 7 days Lab Units 12/31/22 0501 12/30/22 0442 12/29/22 0434 SODIUM mmol/L 138 138 139 POTASSIUM mmol/L 4.4 4.0 4.0 CHLORIDE mmol/L 102 102 104 BICARB mmol/L 28 27 28 BUN mg/dL 11 8 6* CREATININE mg/dL 0.46* 0.29* 0.37* EGFR mL/min/1.73 m2 96 108 101 GLUCOSE mg/dL 130* 108* 111* CALCIUM mg/dL 8.8 8.3* 8.7 PHOSPHORUS mg/dL 3.3 3.5 2.7* Results from last 7 days Lab Units 12/28/22 0459 ALT U/L 15 AST U/L 19 ALK PHOS U/L 83 BILIRUBIN TOTAL mg/dL 0.4 Surgical Oncology Daily Progress Note Patient Name: Merlyn Perez MR #: [id number] : 1940 Assessment and Plan: 82 y.o. female w/ PMHx of HTN, HLD, anxiety/depression, asthma, GERD, recent admission for CVA (11/27/2022) on Plavix, w/ hx of R frontal, parietal, and L temporal infarctions, h/o CCY who presented to [facility] on 12/17/2022 as transfer from [facility] with RLQ back pain, concern for mass. CT A/P w/ IV contrast (12/16/2022): RLQ mass in distal small bowel exophytic appearing 1.7 x 1.6 cm w/ possible trace amount of blood in lumen, adjacent nodule in RLQ suspicious for reactive/metastatic LN, multiple small reactive LNs in RP and mesentery Terminal ileum Neuroendocrine tumor Recent CVA HTN - s/p l/s R hemicolectomy 12/23 - path - well diff neuroendocrine Grade 1 tumor, neg margins, +03/22 LN, pT2N1 - hold ASA/plavix - NPO, IVF - NG to SD - OOB/IS/AAT - CT with oral contrast 4/2 - wall thickening and concern for venous congestion - CT 6 improved from prior - will discuss with Dr. Deras DVT ppx Lovenox GI ppx N/A Weekdays 5a-5p [phone] Nights & Weekends [phone] Subjective: NAEO. Still no bowel function yet, having more pain this AM Objective: Vital Signs BP (!) 154/87 (BP Location: Right arm, Patient Position: Lying) Pulse (!) 121 Temp 97.7 F (36.5 C) Resp 14 Ht 5' 3 Wt 68.4 kg (150 lb 12.7 oz) SpO2 95% BMI 26.71 kg/m Constitutional NAD Head Normocephalic, atraumatic Ears Grossly normal hearing, auricles without deformity Eyes EOMI, vision grossly intact Neck Trachea midline Cardiovascular HDS Chest Non-labored breathing, equal chest rise Abdomen Soft, mild diffuse TTP; mildly distended; no peritoneal signs, incisions w exofin c/d/I. NG with brown output Extremities ZARAGOZA Skin Warm, dry, intact Neurologic: No focal deficits Laboratory Studies: Recent laboratory studies reviewed CBC: Results from last 7 days Lab Units 12/31/22 0501 WBC K/mcL 6.44 HGB g/dL 12.0 HCT % 36.1 PLT K/mcL 183 Results from last 7 days Lab Units 12/31/22 0501 12/30/22 0442 12/29/22 0434 HGB g/dL 12.0 10.4* 11.0* Chem: Results from last 7 days Lab Units 12/31/22 0501 12/29/22 0434 12/28/22 0459 SODIUM mmol/L 138 < > 138 POTASSIUM mmol/L 4.4 < > 3.5 CHLORIDE mmol/L 102 < > 103 BUN mg/dL 11 < > 5* CREATININE mg/dL 0.46* < > 0.35* CALCIUM mg/dL 8.8 < > 8.5 TOTAL PROTEIN g/dL -- -- 5.8* ALK PHOS U/L -- -- 83 ALT U/L -- -- 15 AST U/L -- -- 19 GLUCOSE mg/dL 130* < > 123* < > = values in this interval not displayed. Results from last 7 days Lab Units 12/31/22 0501 12/30/22 04412/29/22 0434 CREATININE mg/dL 0.46* 0.29* 0.37* LFT's: Results from last 7 days Lab Units 12/28/22 0459 ALK PHOS U/L 83 BILIRUBIN TOTAL mg/dL 0.4 TOTAL PROTEIN g/dL 5.8* AST U/L 19 ALT U/L 15 Diagnostic Imaging: Recent diagnostic imaging/reports reviewed Associated attestation - Kell Deras MD - 12/31/2022 12:59 PM EDT I have reviewed the notes, assessments, and/or procedures performed by resident/KRISTEN, I concur with her/his documentation with the following additions/addendums: I have personally seen and examined the patient on rounds. Some ongoing bloating and distention. Pain stable. Abd softly distended, minimally tender diffusely. Incisions well healing. Keep NG tube to to suction. TPN for nutrition. Monitor through the weekend. If no improvement will consider diagnostic laparoscopy early next week. GYNECOLOGY DAILY PROGRESS NOTE Patient Name: Merlyn Perez MR #: [id number] ASSESSMENT AND PLAN: Complete uterovaginal prolapse Assessment & Plan Merlyn Perez is a 82 y.o. female with consult to gynecology for pelvic floor prolapse. Pelvic organ prolapse, chronic - Cervix to +2 on limited pelvic exam - CT scan with bladder distention, concern for prolapse - No SUSANNAH or evidence of post-renal obstruction - S/p trial of pessary for some time, patient not interested in trying again - Follows with Dr. Milly Hartley in [place], they had discussed surgical management before her current acute illness - Measuring PVRs: - voided 450cc, bladder scan 300cc - voided 150cc, bladder scan 128cc - AM PVR pending - Appreciate management of acute medical/surgical issues from all other teams Will follow up PVR this morning for more complete information. Can consider intermittent straight cath if PVR notably elevated. Patient will prefer follow up with Dr. Hartley if planning surgical intervention, if able. Likely would delay surgical intervention if able until her acute issues are resolved. SUBJECTIVE: The patient did well overnight, no acute issues. Reports the same pain, no changes. At this time she is sleeping and reports no other issues / not wanting to do anything at this time. OBJECTIVE: Temp: [97.7 F (36.5 C)-98.2 F (36.8 C)] 97.7 F (36.5 C) Heart Rate: [105-121] 121 Resp: [12-16] 16 BP: (154-186)/(72-90) 154/87 I/O last 3 completed shifts: In: - Out: 2135 [Urine:1200; Emesis/NG output:935] GEN: NAD, A&Ox3 Head: normocephalic Cardiac: Reg rate. No peripheral edema. Pulm: respiratory effort normal Abdomen: soft, mild TTP throughout, distended, non peritoneal Ext: Bilat LE non-tender, no edema. SCDs in place. MSK: FROM x 4. Neuro: Intact, interactive, appropriate. Current medications: acetaminophen 1,000 mg Intravenous Q8H enoxaparin (LOVENOX) injection 40 mg Subcutaneous Daily insulin lispro 0-30 Units Subcutaneous Q4H [facility] metoprolol 5 mg Intravenous Q6H [facility] pantoprazole 40 mg Intravenous Daily sodium chloride (PF) 10 mL Intracatheter Q8H [facility] sodium chloride (PF) 5 mL Intravenous Q8H [facility] Labs: Lab Results Component Value Date WBC 6.44 12/31/2022 HGB 12.0 12/31/2022 HCT 36.1 12/31/2022 MCV 93.3 12/31/2022 PLT 183 12/31/2022 RBC 3.87 (L) 12/31/2022 Lab Results Component Value Date GLUCOSE 130 (H) 12/31/2022 CALCIUM 8.8 12/31/2022 NA 138 12/31/2022 K 4.4 12/31/2022 CL 102 12/31/2022 BUN 11 12/31/2022 CREATININE 0.46 (L) 12/31/2022 Becky Byers DO 12/31/2022 6:49 AM On weekdays before 4:30pm, please page the author of this note. After 4:30pm or on weekends, please page *[phone]* [facility] Inpatient Progress Note 12/30/2022 Merlyn Perez 1940 [id number] Assessment/Plan: Merlyn Perez is a 82 y.o. female with a history of HTN and recent CVA 11/27/22 who presented to [facility] 12/14/22 and again 12/16/22 for recurrent abdominal pain. OSH CT C/A/P 12/17/22 noted enlarged mediastinal LNs with 5mm RLL pulmonary nodule and RLQ 1.7x1.6cm mass abutting the distal small bowel. Transferred to [facility] 12/17/2022 for SurgOnc evaluation. 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 Course complicated 12/25 with ileus s/p NGT. Neuroendocrine Tumor: Presented as above. C-scope 12/20/[address] A&P 12/21/22 concerned for RLQ malignancy s/p right colectomy with terminal ileum resection 12/23/[address] Dersa. 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 PICC placed / for TPN. Pain control, Pain Management following. Monitor respiratory status with IV narcotics. Ileus: confirmed on KUB 12/25/22, s/p NGT 12/25 with good output, had to be replaced 12/[address] A&P 12/26 with edematous bowel but no perforation, KUB 12/27 with ileus vs pSBO, CT A/P 12/30/22 with evolving ileus. SurgOnc following Leukocytosis: reactive to surgery. Afebrile, no infectious symptoms, resolved. Epigastric Pain: GI followed, s/p negative EGD 12/20/22. Acute Metabolic Encephalopathy: transient, likely with baseline cognitive impairment and receiving Dilaudid. Resolved. Lymphadenopathy: noted on OSH CT C/A/P as mentioned above. Pulmonary followed, follow-up CT in [address] A&P 12/21 with 14mm LLL nodule along with several non-specific nodules. Outpatient follow-up. Recent CVA: with residual left facial droop, mild dysarthria. Hospitalized 11/27/22. Neurology followed, OSH MRI brain reviewed, tiny stroke burden. Restart AP as able and statin.Follow-up outpatient with [facility] (AVS updated). HTN Urgency: per hx, amlodipine, atenolol, lisinopril and Lasix held given NPO status. On scheduled IV metoprolol and has PRNs. Pain control given this is the source of elevated BP. Uterine Prolapse: Dr. Smiley (uro-nut sorter) evaluated. Code Status: full, discussed on admit. DVT Prophylaxis: Lovenox. Current living situation: home. Expected disposition: SNF vs C. Estimated discharge date: 3-4 days pending specialty clearance. *Family updated bedside 12/30. Subjective: No acute events overnight, abdomen appears slightly less distended, forging press lever tender with ongoing abdominal pain. Attempting to limit pain medication in the settling of post op ileus although trying to balance uncontrolled pain as well. Physical Exam: BP (!) 166/83 (BP Location: Right arm, Patient Position: Sitting) Comment: RN Notified Pulse (!) 106 Comment: RN notified Temp 97.9 F (36.6 C) (Oral) Resp 16 Ht 5' 3 Wt 67.5 kg (148 lb 13 oz) SpO2 97% BMI 26.36 kg/m General: Mild distress due to pain. Eyes: EOMI. ENT: Neck supple. NGT in place. Cardiovascular: Regular rate. Respiratory: Clear to auscultation. Gastrointestinal: Soft, generalized tenderness, non-peritoneal. Genitourinary: No suprapubic tenderness. Musculoskeletal: No edema. Skin: Warm, dry. Neuro: Alert. Psych: Mood appropriate. Current Medications: acetaminophen 1,000 mg Intravenous Q8H enoxaparin (LOVENOX) injection 40 mg Subcutaneous Daily insulin lispro 0-30 Units Subcutaneous Q4H [facility] metoprolol 5 mg Intravenous Q6H [facility] pantoprazole 40 mg Intravenous Daily sodium chloride (PF) 10 mL Intracatheter Q8H [facility] sodium chloride (PF) 5 mL Intravenous Q8H [facility] Labs, Imaging and Studies reviewed: Results from last 7 days Lab Units 12/30/22 0442 12/29/22 0434 12/28/22 0459 WBC K/mcL 5.76 8.12 7.00 HGB g/dL 10.4* 11.0* 11.1* HCT % 32.7* 34.1* 32.7* PLT K/mcL 137* 165 175 Results from last 7 days Lab Units 12/30/22 0442 12/29/22 0434 12/28/22 0459 SODIUM mmol/L 138 139 138 POTASSIUM mmol/L 4.0 4.0 3.5 CHLORIDE mmol/L 102 104 103 BICARB mmol/L 27 28 27 BUN mg/dL 8 6* 5* CREATININE mg/dL 0.29* 0.37* 0.35* EGFR mL/min/1.73 m2 108 101 103 GLUCOSE mg/dL 108* 111* 123* CALCIUM mg/dL 8.3* 8.7 8.5 PHOSPHORUS mg/dL 3.5 2.7* 3.1 Results from last 7 days Lab Units 12/28/22 0459 ALT U/L 15 AST U/L 19 ALK PHOS U/L 83 BILIRUBIN TOTAL mg/dL 0.4 Date: 12/30/2022 Patient name: Merlyn Perez Date Of : 1940 Admit Date: 12/17/2022 Back pain Assessment & Plan Reason For Hospitalization: ICD-10 M54.9 Merlyn Perez presented 12/17/2022 a 82 y.o. female with a history of HTN and recent CVA 11/27/22 who presented to [facility] 12/14/22 and again 12/16/22 for recurrent abdominal pain. OSH CT C/A/P 12/17/22 noted enlarged mediastinal LNs with 5 mm RLL pulmonary nodule and RLQ 1.7x1.6cm mass abbutting the distal small bowel. Transferred to [facility] 12/17/2022 for SurgOnc evaluation. 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 Course complicated 12/25 with ileus s/p NGT. Assessment: Merlyn was sitting in the recliner chair with feet elevated on foot rest. States she just woke up. Daughter, Nina, present. States her pain is tolerable with meds, however, the Oxycodone makes her drowsy. Would like to try SL Morphine in hopes it will provide pain relief, but less drowsiness as daughter would like for her to stay awake during the day. IV Morphine does cause itching. States Gabapentin helps her the most, but not able to take it currently due to NPO status with NG tube. Hoping to have NG removed tomorrow. Abdomen continues to be distended and reports constant, throbbing, aching pain generalized in the abdomen. States no BM or flatus today. Last BM/flatus was yesterday morning. Pt again notes that she does not like opiate pain medications and has concerns about addiction. Previous Note Pt reports right low back pain that radiates all the way around her waist that has been present since December 16. She is also reporting stomach bloating. States she hadn't eaten in 10 days and her electrolytes were off. She was put on IV Potassium and it caused muscle cramping, so was started on IVPB Robaxin, which was helpful. Pt expresses that she does not like opiate pain medications and has concerns about addiction. Had undesirable side effects with IV Dilaudid. Morphine made her itch, but did take the edge off. Using Benadryl with the IV Morphine caused similar side effect as Dilaudid. Lidocaine patch is not helpful and would like to discontinue. Feels that IV Tylenol is helpful as well as Gabapentin, but interested in spreading dose of Gabapentin out as it does cause some drowsiness. Gabapentin was discontinued at this time per surgery as pt NPO. Plan: Continue Morphine 1-2 mg IV Q 4 H PRN BTP, caution sedation, use oral opiate first Rotate to oral Morphine 10 mg SL Q 4 H PRN, caution sedation Continue OFIRMEV 1,000 mg IVPB Q 8 H per primary team Continue Robaxin 500 mg PO TID PRN when able to take PO, caution sedation Discontinued/Completed Therapies Lidocaine patch, pt states not helpful Gabapentin 100 mg PO TID, discontinued per surgery at pt NPO Robaxin 1 gram IV Q 8 H x 48 hours, complete Oxycodone 5 mg SL Q 4 H PRN, rotated to oral Morphine due to drowsiness Acute Findings/Imaging/Procedures XR Abdomen AP 12/27/2022 IMPRESSION: 1. Scattered contrast in the colon extending into the rectum. 2. Several gas distended small bowel loops may reflect ileus or partial small bowel obstruction, grossly unchanged. 3. NG tube side port at the level of the diaphragm. This should be advanced at least 3 cm and then be rechecked. CT Abdomen Pelvis With Contrast 12/26/2022 IMPRESSION: 1. Long segment of thick-walled edematous distal small bowel to the ileocolonic anastomosis. This finding is nonspecific at this time, although the possibly of early ischemia should be considered. There is no bowel pneumatosis or signs of bowel perforation. 2. Mildly dilated small bowel proximal to the thickened segment. The oral contrast given is present throughout the small bowel to the anastomosis. 3. Moderate scattered free fluid within the abdomen and pelvis and mild mesenteric edema. Free fluid is water attenuation with the exception of a small amount of layering debris or blood products in the posterior peritoneal cavity of the pelvis. 4. Nasogastric tube tip position within the gastric body. Stomach is nondistended. 5. No acute abnormality of the solid organs. 6. Additional stable nonemergent findings as above. Disposition/Ongoing Plan: TBD Substance Use History: Tobacco Use: Denies EtOH Use: Yes, 1-2 glasses of white wine 3-4 times per month THC/CBD Use: Denies Illicit Substance Use: Denies Obtain/Use Medications not prescribed to you: Denies OARRS Reviewed: None reported Chief Complaint/Reason for Visit: 1. Pulmonary nodule 2. Abdominal pain, unspecified abdominal location 3. Abdominal mass, unspecified abdominal location 4. Colonic mass History of Present Illness: Merlyn Perez is a 82 y.o. y/o female presenting 12/17/2022 who presented to [facility] 12/14/22 and again 12/16/22 for recurrent abdominal pain. OSH CT C/A/P 12/17/22 noted enlarged mediastinal LNs with 5 mm RLL pulmonary nodule and RLQ 1.7x1.6cm mass abbutting the distal small bowel. Transferred to [facility] 12/17/2022 for SurgOnc evaluation. 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 Course complicated 12/25 with ileus s/p NGT. During rounding visit 12/30/2022 Merlyn was sitting in the recliner chair with feet elevated on foot rest, NG to LWS. Pt appears drowsy, states she just woke up. Reports tolerable generalized abdominal pain with use of meds, however, would like to rotate to oral Morphine in hopes that she will have less drowsiness as daughter would like the pt to be more awake during the day. Once NG out, may try [place]. Pt feels Gabapentin helps the most, but not able to use until NG discontinued. Continues to have bloating, which causes pain. No BM or flatus since yesterday morning. Went over the above outlined plan with the patient and her daughter. They are in agreement with this plan. Pt continues to note that she does not like opiates and has concerns about addiction. Will continue to reassess and make changes as needed. Denies side effects/sedation on current regimen. History: Past Medical History: Diagnosis Date Hypertension Stroke (HCC) Past Surgical History: Procedure Laterality Date COLECTOMY LAPAROSCOPIC RIGHT N/A 12/23/2022 Procedure: LAPAROSCOPIC RIGHT COLECTOMY; Surgeon: Kell Deras MD; Location: [facility] Main OR; Service: General Surgery COLONOSCOPY N/A 12/20/2022 Procedure: COLONOSCOPY; Surgeon: Storm Byers MD; Location: [facility] Endo; Service: Gastroenterology EGD N/A 12/20/2022 Procedure: ESOPHAGOGASTRODUODENOSCOPY; Surgeon: Storm Byers MD; Location: [facility] Endo; Service: Gastroenterology History reviewed. No pertinent family history. Social History Socioeconomic History Marital status: Tobacco Use Smoking status: Never Passive exposure: Past Smokeless tobacco: Never Vaping Use Vaping status: Never Used Passive vaping exposure: Yes Substance and Sexual Activity Alcohol use: Not Currently Drug use: Never Allergy Information: I have reviewed the patient's allergies. Amlodipine Home Medications: Outpatient Medications as of 12/30/2022 Medication Sig amLODIPine (NORVASC) 2.5 MG tablet Take 1 (one) tablet (2.5 mg total) by mouth daily . aspirin 81 mg chewable tablet Chew and Swallow 1 (one) tablet (81 mg total) . atenoloL (TENORMIN) 50 MG tablet Take 1.5 (one and a half) tablets (75 mg total) by mouth daily . calcium carbonate (TUMS) 200 mg calcium (500 mg) chewable tablet Chew and Swallow 1 (one) tablet (500 mg total) 3 (three) times a day . clopidogreL (PLAVIX) 75 mg tablet Take 1 (one) tablet (75 mg total) by mouth daily . furosemide (LASIX) 20 MG tablet Take 1 (one) tablet (20 mg total) by mouth daily . lisinopriL (PRINIVIL,ZESTRIL) 20 MG tablet Take 1 (one) tablet (20 mg total) by mouth 2 (two) times a day . omeprazole (PRILOSEC) 40 MG capsule Take 1 (one) capsule (40 mg total) by mouth daily . Review of Systems: The following system(s) were reviewed and pertinent findings noted: All other systems reviewed and negative other than HPI Physical Examination: Vital Signs: BP (!) 166/83 (BP Location: Right arm, Patient Position: Sitting) Pulse (!) 106 Temp 97.9 F (36.6 C) (Oral) Resp 16 Ht 5' 3 Wt 67.5 kg (148 lb 13 oz) SpO2 97% BMI 26.36 kg/m General: Awake/Alert, but drowsy, cooperative, no distress, appears stated age Head: Normocephalic, without obvious abnormality, atraumatic, right nare NG Eyes: Conjunctiva/corneas clear, EOM intact Throat: Lips, mucosa, and tongue normal; teeth and gums normal Neck: Symmetrical, trachea midline Back: Symmetric, no obvious curvature Lungs: Respirations unlabored,normal respiratory effort Chest Wall: No tenderness or deformity Cardiovascular: Regular rate Genitourinary Not examined Abdomen: Distended Skin: Skin color wnl, no rashes or lesions Musculoskeletal: ZARAGOZA x 4, no joint edema Neurologic: Oriented, follows commands, gross strength and sensation intact Psych: Mood and affect appropriate Intake/Output last 3 shifts: I/O last 3 completed shifts: In: - Out: 1225 [Urine:500; Emesis/NG output:725] Medications: Scheduled Meds: acetaminophen 1,000 mg Intravenous Q8H enoxaparin (LOVENOX) injection 40 mg Subcutaneous Daily insulin lispro 0-30 Units Subcutaneous Q4H [facility] metoprolol 5 mg Intravenous Q6H JOS[facility] pantoprazole 40 mg Intravenous Daily sodium chloride (PF) 10 mL Intracatheter Q8H JOSH sodium chloride (PF) 5 mL Intravenous Q8H JOSH Continuous Infusions: Adult TPN 70 mL/hr at 12/29/22 2245 Adult TPN dextrose sodium chloride 0.9 % Stopped (12/24/22 2141) PRN Meds: alteplase, aluminum-magnesium hydroxide-simethicone, benzonatate, dextrose, diphenhydrAMINE-zinc acetate, guaiFENesin, hydrALAZINE, labetalol, melatonin, methocarbamoL, morphine, morphine injection, nalOXone AND Notify physician AND naloxone, ondansetron OR ondansetron, simethicone, sodium chloride (PF), Saline lock IV AND sodium chloride (PF) AND sodium chloride (PF) AND sodium chloride 0.9 % Laboratory and Additional Data Reviewed: Laboratory 12/30/22 Microbiology 12/30/22 Pathology 12/30/22 Radiology 12/30/22 Cardiology 12/30/22 Medications 12/30/22 Transcriptions 12/30/22 Drugs of Abuse 12/30/22 Assessment Detail: The total time spent for this visit was 25 minutes. Greater than 50% of the time was spent in counseling and coordination of care regarding pain control and plan Please note that plan to help manage symptoms will include maximizing adjunctive agents and developing a multi-modal treatment plan. If opiate based medications are being used, we have talked about the risk and benefits of using this class of medication. Discussed with patient that there is a risk that opioid addiction could occur, meaning that he/she might become psychologically dependent on the medication and also discussed possible side effects/adverse events associated with narcotics Goal will be to use opiates at lowest effective doses for shortest period of time to help manage acute pain Discussed with Merlyn Perez about realistic expectation surrounding pain control- as being pain free is unlikely Discussed safety is paramount while trying to keep them as comfortable as possible NUTRITION SUPPORT TEAM DAILY PROGRESS NOTE Pertinent clinical issues: NPO with NG output of 450ml. CTAP today. LBM 12/29 Current weight: 67.5kg Wt change since admit: -0.5kg (68kg 12/17) Current TPN Prescription: Component Order Dose Admin Dose parenteral amino acid 15% no.6 15 % Solp 80 g/day 79.95 g dextrose 70% Solp 240 g/day 240.1 g fat emulsion (INTRALIPID,LIPOSYN) 20 % Emul 45 g/day 225 mL sterile water Solp 486.95 mL/day 486.95 mL sodium chloride (CONC 23.4%) 4 mEq/mL Solp 100 mEq 100 mEq potassium acetate 2 mEq/mL Soln 60 mEq 60 mEq potassium phosphate 3 mmol/mL Soln 20 mmol 20 mmol calcium gluconate 100 mg/mL (10%) Soln 8 mEq 1.7 g magnesium sulfate 4 mEq/mL (50 %) Soln 10 mEq 10 mEq mvi, adult no.4 with vit K 3,300 unit- 150 mcg/10 mL Soln 10 mL 10 mL trace elements Zn-Cu-Mn-Se 3 mg-0.3 mg-55 mcg-60 mcg/mL Soln 1 mL 1 mL TPN at 70ml/hr provides 1586 kcals, 80g PRO MIVF: none Recent Labs 12/28/22 0459 12/29/22 0434 12/30/22 0442 NA 138 139 138 K 3.5 4.0 4.0 BICARB 27 28 27 CL 103 104 102 GLUCOSE 123* 111* 108* BUN 5* 6* 8 CREATININE 0.35* 0.37* 0.29* MG 2.0 1.9 2.0 PHOS 3.1 2.7* 3.5 ALBUMIN 2.7* -- -- PREALBUMIN 10.5* -- -- TRIG 148 -- -- RAUL 4.7 -- -- FSB-149 x24hrs; 1 unit corrective insulin within the past 24hr TPN Changes: -no change in current TPN rx Shraddha Gomez RD, LD, [facility] Surgical Oncology Daily Progress Note Patient Name: Merlyn Perez MR #: [id number] : 1940 Assessment and Plan: 82 y.o. female w/ PMHx of HTN, HLD, anxiety/depression, asthma, GERD, recent admission for CVA (11/27/2022) on Plavix, w/ hx of R frontal, parietal, and L temporal infarctions, h/o CCY who presented to [facility] on 12/17/2022 as transfer from [facility] with RLQ back pain, concern for mass. CT A/P w/ IV contrast (12/16/2022): RLQ mass in distal small bowel exophytic appearing 1.7 x 1.6 cm w/ possible trace amount of blood in lumen, adjacent nodule in RLQ suspicious for reactive/metastatic LN, multiple small reactive LNs in RP and mesentery Terminal ileum Neuroendocrine tumor Recent CVA HTN - s/p l/s R hemicolectomy 12/23 - path - well diff neuroendocrine Grade 1 tumor, neg margins, +03/22 LN, pT2N1 - hold ASA/plavix - NPO, IVF - NG to ILWS - OOB/IS/AAT - CT with oral contrast 12/26 - wall thickening and concern for venous congestion - repeat CT today with IV and PO DVT ppx Lovenox GI ppx N/A Weekdays 5a-5p [phone] Nights & Weekends [phone] Subjective: NAEO. Still no bowel function yet Objective: Vital Signs BP (!) 170/90 Comment: RN Notified Pulse (!) 109 Comment: RN Notified Temp 98.6 F (37 C) (Oral) Resp 16 Ht 5' 3 Wt 67.5 kg (148 lb 13 oz) SpO2 94% BMI 26.36 kg/m Constitutional NAD Head Normocephalic, atraumatic Ears Grossly normal hearing, auricles without deformity Eyes EOMI, vision grossly intact Neck Trachea midline Cardiovascular HDS Chest Non-labored breathing, equal chest rise Abdomen Soft, mild diffuse TTP; mildly distended; no peritoneal signs, incisions w exofin c/d/I. NG with brown output Extremities ZARAGOZA Skin Warm, dry, intact Neurologic: No focal deficits Laboratory Studies: Recent laboratory studies reviewed CBC: Results from last 7 days Lab Units 12/30/22441 WBC K/mcL 5.76 HGB g/dL 10.4* HCT % 32.7* PLT K/mcL 137* Results from last 7 days Lab Units 12/30/2244112/29/22 04312/28/22 0459 HGB g/dL 10.4* 11.0* 11.1* Chem: Results from last 7 days Lab Units 12/30/2244112/29/22 04312/28/22 045 SODIUM mmol/L 138 < > 138 POTASSIUM mmol/L 4.0 < > 3.5 CHLORIDE mmol/L 102 < > 103 BUN mg/dL 8 < > 5* CREATININE mg/dL 0.29* < > 0.35* CALCIUM mg/dL 8.3* < > 8.5 TOTAL PROTEIN g/dL -- -- 5.8* ALK PHOS U/L -- -- 83 ALT U/L -- -- 15 AST U/L -- -- 19 GLUCOSE mg/dL 108* < > 123* < > = values in this interval not displayed. Results from last 7 days Lab Units 12/30/22 0442 12/29/22 0434 12/28/22 0459 CREATININE mg/dL 0.29* 0.37* 0.35* LFT's: Results from last 7 days Lab Units 12/28/22 0459 ALK PHOS U/L 83 BILIRUBIN TOTAL mg/dL 0.4 TOTAL PROTEIN g/dL 5.8* AST U/L 19 ALT U/L 15 Diagnostic Imaging: Recent diagnostic imaging/reports reviewed Associated attestation - Kell Deras MD - 12/30/2022 10:15 AM EDT I have reviewed the notes, assessments, and/or procedures performed by resident/KRISTEN, I concur with her/his documentation with the following additions/addendums: I have personally seen and examined the patient on rounds. Patient feeling a little better each day. Abdominal pain improving. Continues to have some bowel function. Abdomen softly distended but less distended than previously. Incisions are clean dry and intact. Minimally tender. NG tube in place. NG output is no longer bilious. Reviewed her CT scan which shows progression of contrast into the colon with mildly distended colon and bowel loops consistent with an ileus. The distal ileal loops that was previously significantly thickened showed improvement in the bowel wall edema likely consistent with improving venous congestion in this area. Her bladder is significantly distended and she reports that she urinated a large amount after returning from her CT scan. We will continue the NG tube to gravity for the next 24 hours and if her output remains low we will plan for removal. Continue TPN for nutrition Care Management Progress Note Date: 12/29/2022 Time: 3:49 PM Patient Name: Merlyn Perez Date of : 1940 Discharge Plan: D/C Disposition: Rehab Facility Post-Acute Patient Choice 1: [facility] Post-Acute Patient Choice 2: [facility] Options Reviewed: Possible expense, Explained services/benefits Reason for Choice: Patient/Family preference Regulatory Documentation: Medicare IM Regulatory Documentation Status: Certified Patient Paper Copy: Patient received paper copy Discharging Transportation Plan: Transportation Type: Auto (daughter will provide transportation a DC) Discharge Plan Status: Medically not ready for discharge . Currently pt is NPO, NG and TPN with PICC . Goal per Dr. Deras goal is no TPN on discharge. Left VM with [facility] Ani liaison phone [phone] and informed pt is not medically ready and will call Tuesday with updates. Per prior notes they can accept with no NG. They can accept TPN if needed. No covid testing needed. [facility] Inpatient Progress Note 12/29/2022 Merlyn Perez 1940 [id number] Assessment/Plan: Merlyn Perez is a 82 y.o. female with a history of HTN and recent CVA 11/27/22 who presented to [facility] 12/14/22 and again 12/16/22 for recurrent abdominal pain. OSH CT C/A/P 12/17/22 noted enlarged mediastinal LNs with 5mm RLL pulmonary nodule and RLQ 1.7x1.6cm mass abutting the distal small bowel. Transferred to [facility] 12/17/2022 for SurgOnc evaluation. 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 Course complicated 12/25 with ileus s/p NGT. Neuroendocrine Tumor: Presented as above. C-scope 12/20/[address] A&P 12/21/22 concerned for RLQ malignancy s/p right colectomy with terminal ileum resection 12/23/[address] Deras. 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 PICC placed 4/ for TPN. Pain control, Pain Management following. Monitor respiratory status with IV narcotics. Ileus: confirmed on KUB 12/25/22, s/p NGT 12/25 with good output, had to be replaced 12/[address] A&P 12/26 with edematous bowel but no perforation, KUB 12/27 with ileus vs pSBO -> NGT advanced. SurgOnc following, pending course, may require OR for dx lap. Leukocytosis: reactive to surgery. Afebrile, no infectious symptoms, resolved. Epigastric Pain: GI followed, s/p negative EGD 12/20/22. Acute Metabolic Encephalopathy: transient, likely with baseline cognitive impairment and receiving Dilaudid. Resolved. Lymphadenopathy: noted on OSH CT C/A/P as mentioned above. Pulmonary followed, follow-up CT in [address] A&P 12/21 with 14mm LLL nodule along with several non-specific nodules. Outpatient follow-up. Recent CVA: with residual left facial droop, mild dysarthria. Hospitalized 11/27/22. Neurology followed, OSH MRI brain reviewed, tiny stroke burden. Restart AP as able and statin.Follow-up outpatient with [facility] (AVS updated). HTN Urgency: per hx, amlodipine, atenolol, lisinopril and Lasix held given NPO status. On scheduled IV metoprolol and has PRNs. Pain control given this is the source of elevated BP. Code Status: full, discussed on admit. DVT Prophylaxis: Lovenox. Current living situation: home. Expected disposition: SNF vs C. Estimated discharge date: 3-4 days pending specialty clearance. *Family updated bedside 12/29. Subjective: New patient to me, reviewed chart, discussed case with nurse. Patient with ongoing abdominal distension. Did have BM again today although still quite uncomfortable from an abdominal distension stand point. Physical Exam: BP (!) 167/80 (BP Location: Right arm, Patient Position: Sitting) Comment: RN notified Pulse (!) 108 Comment: RN notified Temp 97.8 F (36.6 C) (Oral) Resp 14 Ht 5' 3 Wt 69.8 kg (153 lb 14.1 oz) SpO2 97% BMI 27.26 kg/m General: Mild distress due to pain. Eyes: EOMI. ENT: Neck supple. NGT in place. Cardiovascular: Regular rate. Respiratory: Clear to auscultation. Gastrointestinal: Soft, generalized tenderness, non-peritoneal. Genitourinary: No suprapubic tenderness. Musculoskeletal: No edema. Skin: Warm, dry. Neuro: Alert. Psych: Mood appropriate. Current Medications: acetaminophen 1,000 mg Intravenous Q8H enoxaparin (LOVENOX) injection 40 mg Subcutaneous Daily insulin lispro 0-30 Units Subcutaneous Q4H JOSH metoprolol 5 mg Intravenous Q6H JOS[facility] pantoprazole 40 mg Intravenous Daily sodium chloride (PF) 10 mL Intracatheter Q8H JOS[facility] sodium chloride (PF) 5 mL Intravenous Q8H JOS[facility] Labs, Imaging and Studies reviewed: Results from last 7 days Lab Units 12/29/22 04312/28/2245812/27/22 0715 WBC K/mcL 8.12 7.00 6.18 HGB g/dL 11.0* 11.1* 11.0* HCT % 34.1* 32.7* 35.3* PLT K/mcL 165 175 185 Results from last 7 days Lab Units 12/29/22 0434 12/28/2245812/27/22 0715 SODIUM mmol/L 139 138 141 POTASSIUM mmol/L 4.0 3.5 3.3* CHLORIDE mmol/L 104 103 106 BICARB mmol/L 28 27 27 BUN mg/dL 6* 5* 5* CREATININE mg/dL 0.37* 0.35* 0.41* EGFR mL/min/1.73 m2 101 103 99 GLUCOSE mg/dL 111* 123* 111* CALCIUM mg/dL 8.7 8.5 8.6 PHOSPHORUS mg/dL 2.7* 3.1 3.6 Results from last 7 days Lab Units 12/28/22 0459 ALT U/L 15 AST U/L 19 ALK PHOS U/L 83 BILIRUBIN TOTAL mg/dL 0.4 Results from last 7 days Lab Units 12/23/22 0652 INR 1.1 Occupational Therapy OCCUPATIONAL THERAPY TREATMENT NOTE Skilled Therapy Needs After Discharge Anticipate Resolution of Current Assessment Limitations Including: Pain, Mechanical Barriers Are Skilled Therapy Services Needed After Discharge: Yes Intensity of Skilled Therapy: 5 to 7 days per week Anticipated Duration of Skilled Therapy: Duration 10 - 30 days DME Recommendation: To be determined at next level of care Rehab Potential: Excellent Outcomes Measures Prior Function Daily Activity Raw Score: 24 Prior Function Daily Activity % Impaired: 0% AM-PAC Daily Activity Raw Score: 13 AM-PAC Daily Activity % Impaired: 63.03% Activity Tolerance Activity Tolerance: Tolerates 30 min acitivty with multiple rests Therapy Precautions Orthotic Devices: No General Rehab Precautions: Abdominal, Fall risk Cognition Arousal/Alertness: Appropriate responses to stimuli Orientation Level: Oriented X4 Executive functioning: Min impairment, Mod impairment, Insight, Processing delay, Planning / Organizing Safety Judgment: Decreased awareness of need for assistance, Decreased awareness of need for safety Problem Solving: Assistance required to generate solutions, Assistance required to implement solutions Attention: Attends to quiet environment Hearing Status: Hard of hearing Social Interaction: Cooperative, Appropriate, Word finding Comments: Reviewed OT plan of care Skilled Intervention Provided: patient education For: preparing for self-care tasks, necessary precautions Resulting In: increased insight into deficits ADL Grooming: Supervision (seated) Lower Body Dressing: Stand by assist Overall ADL Performance - Skilled Intervention Provided: verbal cues Overall ADL Performance - For: compensatory strategies, energy conservation Overall ADL Performance - Resulting In: improved awareness IADL Bed Mobility Functional Transfers Sit to Stand: Stand by assist, Contact guard assist Bed to Chair Transfers: Stand by assist Skilled Intervention Provided: verbal cues, tactile cues, patient education For: compensatory strategies Resulting In: improved activity tolerance Exercise Balance Treatment Interventions Additional Treatment Details Home Living Obtained Home Living and PLOF info from: Patient, Patient s family member Lives With: Alone (Daughter able to assist) Type of Home: House Home Layout: One level, Laundry in basement, Stairs between floors (working on bringing laundry up to main level) Rails on inside stairs: 1 rail Number of stairs inside home: 12 Bathroom Shower/Tub: Tub/shower unit (pt showers or sits in tub to bathe) Bathroom Toilet: Standard Bathroom Equipment: (none) Bathroom Accessibility: Accessible Mobility Equipment: (none per pt) Additional Objective Details - Home Living: Daughter completes financial services representative, medication management (post CVA, prior to CVA, pt was independent w/ med management). Pt endorsing x1 fall recently Prior Level of Function Level of [place] - Transfers/Ambulation/Mobility: Independent with household ambulation, Independent with functional transfers Level of [place] - ADLs: Independent Level of [place] - Homemaking: Independent Driving: Patient drives (pt's daughter assist (states has not been driving as much recently)) For complete objective data, detailed plan of care and patient education refer to: OT Evaluation flowsheet, OT Evaluation and Treatment flowsheet, OT Treatment flowsheet, patient Plan of Care, Plan of Care progress note, and Patient Education. This note stands as the current Discharge Summary upon patient discharge from the hospital or completion of Occupational Therapy Plan of Care. Date: 12/29/2022 Patient name: Merlyn Perez Date Of : 1940 Admit Date: 12/17/2022 Back pain Assessment & Plan Reason For Hospitalization: ICD-10 M54.9 Merlyn Perez presented 12/17/2022 a 82 y.o. female with a history of HTN and recent CVA 11/27/22 who presented to [facility] 12/14/22 and again 12/16/22 for recurrent abdominal pain. OSH CT C/A/P 12/17/22 noted enlarged mediastinal LNs with 5 mm RLL pulmonary nodule and RLQ 1.7x1.6cm mass abbutting the distal small bowel. Transferred to [facility] 12/17/2022 for SurgOnc evaluation. 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 Course complicated 12/25 with ileus s/p NGT. Assessment: Merlyn was sitting in the chair resting with her eyes closed, abdomen continues to appear distended, NG in place. Reports that medication changes made yesterday have been helpful for her pain. Daughter requesting to make a range for IV Morphine to 1-2 mg, allowing for a lower dose. IVPB Robaxin complete, daughter requesting to have PRN oral Robaxin. Pt had BM x 2 this morning and has been passing some flatus, but would like to be able to pass more flatus as she continues to have bloating, which is causing pain. Previous Note Pt reports right low back pain that radiates all the way around her waist that has been present since December 16. She is also reporting stomach bloating. States she hadn't eaten in 10 days and her electrolytes were off. She was put on IV Potassium and it caused muscle cramping, so was started on IVPB Robaxin, which was helpful. Pt expresses that she does not like opiate pain medications and has concerns about addiction. Had undesirable side effects with IV Dilaudid. Morphine made her itch, but did take the edge off. Using Benadryl with the IV Morphine caused similar side effect as Dilaudid. Lidocaine patch is not helpful and would like to discontinue. Feels that IV Tylenol is helpful as well as Gabapentin, but interested in spreading dose of Gabapentin out as it does cause some drowsiness. Gabapentin was discontinued at this time per surgery as pt NPO. Plan: Adjust Morphine to 1-2 mg IV Q 4 H PRN, caution sedation, use oral opiate first Continue Oxycodone 5 mg SL Q 4 H PRN, caution sedation Continue OFIRMEV 1,000 mg IVPB Q 8 H per primary team Rotate to Robaxin 500 mg PO TID PRN when able to take PO, caution sedation Discontinued/Completed Therapies Lidocaine patch, pt states not helpful Gabapentin 100 mg PO TID, discontinued per surgery at pt NPO Robaxin 1 gram IV Q 8 H x 48 hours, complete Acute Findings/Imaging/Procedures XR Abdomen AP 12/27/2022 IMPRESSION: 1. Scattered contrast in the colon extending into the rectum. 2. Several gas distended small bowel loops may reflect ileus or partial small bowel obstruction, grossly unchanged. 3. NG tube side port at the level of the diaphragm. This should be advanced at least 3 cm and then be rechecked. CT Abdomen Pelvis With Contrast 12/26/2022 IMPRESSION: 1. Long segment of thick-walled edematous distal small bowel to the ileocolonic anastomosis. This finding is nonspecific at this time, although the possibly of early ischemia should be considered. There is no bowel pneumatosis or signs of bowel perforation. 2. Mildly dilated small bowel proximal to the thickened segment. The oral contrast given is present throughout the small bowel to the anastomosis. 3. Moderate scattered free fluid within the abdomen and pelvis and mild mesenteric edema. Free fluid is water attenuation with the exception of a small amount of layering debris or blood products in the posterior peritoneal cavity of the pelvis. 4. Nasogastric tube tip position within the gastric body. Stomach is nondistended. 5. No acute abnormality of the solid organs. 6. Additional stable nonemergent findings as above. Disposition/Ongoing Plan: TBD Substance Use History: Tobacco Use: Denies EtOH Use: Yes, 1-2 glasses of white wine 3-4 times per month THC/CBD Use: Denies Illicit Substance Use: Denies Obtain/Use Medications not prescribed to you: Denies OARRS Reviewed: None reported Chief Complaint/Reason for Visit: 1. Pulmonary nodule 2. Abdominal pain, unspecified abdominal location 3. Abdominal mass, unspecified abdominal location 4. Colonic mass History of Present Illness: Merlyn Perez is a 82 y.o. y/o female presenting 12/17/2022 who presented to [facility] 12/14/22 and again 12/16/22 for recurrent abdominal pain. OSH CT C/A/P 12/17/22 noted enlarged mediastinal LNs with 5 mm RLL pulmonary nodule and RLQ 1.7x1.6cm mass abbutting the distal small bowel. Transferred to [facility] 12/17/2022 for SurgOnc evaluation. 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 Course complicated 12/25 with ileus s/p NGT. During rounding visit 12/29/2022 Merlyn was sitting in the chair with her eyes closed, appears drowsy, NAD. Reports that medication changes made yesterday have been helpful, but continues to have bloating, which causes pain. State she had 2 BM this morning and a small amount of flatus, been using Simethicone. She would like to be able to pass more flatus. Daughter would like to make a lower range available for the IV Morphine (1-2 mg) and add PRN Robaxin since IVPB was helpful for muscle cramping when able to take PO. Went over the above outlined plan with the patient and her daughter, Nina. They are in agreement with this plan. Will continue to reassess and make changes as needed. Denies side effects/sedation on current regimen. History: Past Medical History: Diagnosis Date Hypertension Stroke (HCC) Past Surgical History: Procedure Laterality Date COLECTOMY LAPAROSCOPIC RIGHT N/A 12/23/2022 Procedure: LAPAROSCOPIC RIGHT COLECTOMY; Surgeon: Kell Deras MD; Location: [facility] Main OR; Service: General Surgery COLONOSCOPY N/A 12/20/2022 Procedure: COLONOSCOPY; Surgeon: Storm Byers MD; Location: [facility] Endo; Service: Gastroenterology EGD N/A 12/20/2022 Procedure: ESOPHAGOGASTRODUODENOSCOPY; Surgeon: Storm Byers MD; Location: [facility] Endo; Service: Gastroenterology History reviewed. No pertinent family history. Social History Socioeconomic History Marital status: Tobacco Use Smoking status: Never Passive exposure: Past Smokeless tobacco: Never Vaping Use Vaping status: Never Used Passive vaping exposure: Yes Substance and Sexual Activity Alcohol use: Not Currently Drug use: Never Allergy Information: I have reviewed the patient's allergies. Amlodipine Home Medications: Outpatient Medications as of 12/29/2022 Medication Sig amLODIPine (NORVASC) 2.5 MG tablet Take 1 (one) tablet (2.5 mg total) by mouth daily . aspirin 81 mg chewable tablet Chew and Swallow 1 (one) tablet (81 mg total) . atenoloL (TENORMIN) 50 MG tablet Take 1.5 (one and a half) tablets (75 mg total) by mouth daily . calcium carbonate (TUMS) 200 mg calcium (500 mg) chewable tablet Chew and Swallow 1 (one) tablet (500 mg total) 3 (three) times a day . clopidogreL (PLAVIX) 75 mg tablet Take 1 (one) tablet (75 mg total) by mouth daily . furosemide (LASIX) 20 MG tablet Take 1 (one) tablet (20 mg total) by mouth daily . lisinopriL (PRINIVIL,ZESTRIL) 20 MG tablet Take 1 (one) tablet (20 mg total) by mouth 2 (two) times a day . omeprazole (PRILOSEC) 40 MG capsule Take 1 (one) capsule (40 mg total) by mouth daily . Review of Systems: The following system(s) were reviewed and pertinent findings noted: All other systems reviewed and negative other than HPI Physical Examination: Vital Signs: BP (!) 167/80 (BP Location: Right arm, Patient Position: Sitting) Comment: RN notified Pulse (!) 108 Comment: RN notified Temp 97.8 F (36.6 C) (Oral) Resp 14 Ht 5' 3 Wt 69.8 kg (153 lb 14.1 oz) SpO2 97% BMI 27.26 kg/m General: Awake/Alert, but drowsy, cooperative, no distress, appears stated age Head: Normocephalic, without obvious abnormality, atraumatic, right nare NG Eyes: Conjunctiva/corneas clear, EOM intact Throat: Lips, mucosa, and tongue normal; teeth and gums normal Neck: Symmetrical, trachea midline Back: Symmetric, no obvious curvature Lungs: Respirations unlabored,normal respiratory effort Chest Wall: No tenderness or deformity Cardiovascular: Regular rate Genitourinary Not examined Abdomen: Distended Skin: Skin color wnl, no rashes or lesions Musculoskeletal: ZARAGOZA x 4, no joint edema Neurologic: Oriented, follows commands, gross strength and sensation intact Psych: Mood and affect appropriate Intake/Output last 3 shifts: I/O last 3 completed shifts: In: - Out: 725 [Emesis/NG output:725] Medications: Scheduled Meds: acetaminophen 1,000 mg Intravenous Q8H enoxaparin (LOVENOX) injection 40 mg Subcutaneous Daily insulin lispro 0-30 Units Subcutaneous Q4H JOSH metoprolol 5 mg Intravenous Q6H JOSH pantoprazole 40 mg Intravenous Daily sodium chloride (PF) 10 mL Intracatheter Q8H JOSH sodium chloride (PF) 5 mL Intravenous Q8H JOSH sodium phosphate 30 mmol Intravenous Once Continuous Infusions: Adult TPN 70 mL/hr at 12/28/22 2238 Adult TPN dextrose lactated Ringers 75 mL/hr (12/28/22 2216) sodium chloride 0.9 % Stopped (12/24/22 2141) PRN Meds: alteplase, aluminum-magnesium hydroxide-simethicone, benzonatate, dextrose, diphenhydrAMINE-zinc acetate, guaiFENesin, hydrALAZINE, labetalol, melatonin, methocarbamoL, morphine injection, nalOXone AND Notify physician AND naloxone, ondansetron OR ondansetron, oxyCODONE, simethicone, sodium chloride (PF), Saline lock IV AND sodium chloride (PF) AND sodium chloride (PF) AND sodium chloride 0.9 % Laboratory and Additional Data Reviewed: Laboratory 12/29/22 Microbiology 12/29/22 Pathology 12/29/22 Radiology 12/29/22 Cardiology 12/29/22 Medications 12/29/22 Transcriptions 12/29/22 Drugs of Abuse 12/29/22 Assessment Detail: The total time spent for this visit was 25 minutes. Greater than 50% of the time was spent in counseling and coordination of care regarding pain control and plan Please note that plan to help manage symptoms will include maximizing adjunctive agents and developing a multi-modal treatment plan. If opiate based medications are being used, we have talked about the risk and benefits of using this class of medication. Discussed with patient that there is a risk that opioid addiction could occur, meaning that he/she might become psychologically dependent on the medication and also discussed possible side effects/adverse events associated with narcotics Goal will be to use opiates at lowest effective doses for shortest period of time to help manage acute pain Discussed with Merlyn Perez about realistic expectation surrounding pain control- as being pain free is unlikely Discussed safety is paramount while trying to keep them as comfortable as possible NUTRITION SUPPORT TEAM DAILY PROGRESS NOTE Pertinent clinical issues: NPO. NGT: 475. LBM 12/28 Current weight: 69kg (12/28) Wt change since admit: +1kg (68kg 12/17) Current TPN Prescription: Component Order Dose Admin Dose parenteral amino acid 15% no.6 15 % Solp 80 g/day 79.95 g dextrose 70% Solp 240 g/day 240.1 g fat emulsion (INTRALIPID,LIPOSYN) 20 % Emul 45 g/day 225 mL sterile water Solp 488.55 mL/day 488.55 mL sodium chloride (CONC 23.4%) 4 mEq/mL Solp 100 mEq 100 mEq potassium acetate 2 mEq/mL Soln 60 mEq 60 mEq potassium phosphate 3 mmol/mL Soln 15 mmol 15 mmol calcium gluconate 100 mg/mL (10%) Soln 8 mEq 1.7 g magnesium sulfate 4 mEq/mL (50 %) Soln 10 mEq 10 mEq mvi, adult no.4 with vit K 3,300 unit- 150 mcg/10 mL Soln 10 mL 10 mL trace elements Zn-Cu-Mn-Se 3 mg-0.3 mg-55 mcg-60 mcg/mL Soln 1 mL 1 mL TPN at 70ml/hr provides 1586 kcals, 80g PRO MIVF: LR @75ml/hr Recent Labs 12/27/22 0715 12/28/22 0459 12/29/22 0434 NA 141 138 139 K 3.3* 3.5 4.0 BICARB 27 27 28 CL 106 103 104 GLUCOSE 111* 123* 111* BUN 5* 5* 6* CREATININE 0.41* 0.35* 0.37* MG 1.7 2.0 1.9 PHOS 3.6 3.1 2.7* ALBUMIN -- 2.7* -- PREALBUMIN -- 10.5* -- TRIG -- 148 -- RAUL -- 4.7 -- FSB-139 x24hrs; 0 units corrective insulin within the past 24hr TPN Changes: -increase to [address], LD, [facility] Physical Therapy PHYSICAL THERAPY TREATMENT NOTE Skilled Therapy Needs After Discharge Anticipate Resolution of Current Assessment Limitations Including: Pain, Mechanical Barriers Are Skilled Therapy Services Needed After Discharge: Yes Intensity of Skilled Therapy: 5 to 7 days per week Anticipated Duration of Skilled Therapy: Duration 10 - 30 days DME Recommendation: To be determined at next level of care Rehab Potential: Good, For goals Outcomes Measures Prior Function - Basic Mobility Raw Score: 24 Points Prior Function - Basic Mobility % Impaired: 0% AM-PAC Basic Mobility Raw Score: 17 Points AM-PAC Basic Mobility % Impaired: 43.83% Activity Tolerance Activity Tolerance: Tolerates 30 min acitivty with multiple rests Therapy Precautions Orthotic Devices: No Weight Bearing Status: WFL General Rehab Precautions: Fall risk, Abdominal Balance Sitting Balance - Static: Stand by assist Sitting Balance - Dynamic: Contact guard assist, Stand by assist Loss of Balance - Sitting Dynamic: posterior Sitting Balance Treatment: weight shifting anterior, maintaining midline orientation, postural re-education, upright gaze Skilled Intervention Provided: verbal cues, tactile cues, visual cues, facilitation, patient education For: attention to task, balance recovery, efficient movement, midline orientation, necessary precautions, postural alignment, sequencing of movement Resulting in: improved activity tolerance, improved adherence to precautions, improved balance reactions, improved functional independence, improved performance, improved safety Standing Balance - Static: Contact guard assist Emergency Room Rn - Standing Static: wheeled walker Standing Balance - Dynamic: Contact guard assist Emergency Room Rn - Standing Dynamic: wheeled walker Standing Balance Treatment: weight shifting anterior, maintaining midline, postural re-education Skilled Intervention Provided: verbal cues, tactile cues, visual cues, patient education For: attention to task, balance recovery, efficient movement, midline orientation, necessary precautions, postural alignment, sequencing of movement Resulting in: improved activity tolerance, improved adherence to precautions, improved balance reactions, improved functional independence, improved performance, improved safety Bed Mobility Rolling: (pt was up in a chair pre/post tx session.) Transfers Sit to Stand: Contact guard assist Bed to Chair: Contact guard assist Skilled Intervention Provided: verbal cues, tactile cues, visual cues, facilitation, provided step by step instructions, patient education For: attention to task, controlled descent, efficient movement, midline orientation, necessary precautions, postural alignment, proper body mechanics, safe use of AD and/or equipment, sequencing of movement, weight shifting Resulting in: improved activity tolerance, improved adherence to precautions, improved balance, improved performance, improved safety Gait/Locomotion Gait Assistance: Contact guard assist Assistive Device: wheeled walker Distance: 325 Feet Rest Breaks: Yes Rest Break Position: standing Rest Break Duration: 20secs,+20secs Pattern: step through, R decreased step length, L decreased step length, over reliance on upper extremities, forward flexed, decreased larry (steps per minute) Weight Bearing Status: able to maintain Environment/Terrain: open/community environment, multiple distractions Skilled Intervention Provided: verbal cues, tactile cues, visual cues, facilitation, provided step by step instructions, patient education For: attention to task, device management and safe use of device, efficient movement, gait sequence, gait technique, energy conservation techniques, fall prevention, improved posture, midline orientation, necessary precautions, proper body mechanics, weight shifting Resulting in: improved activity tolerance, improved adherence to precautions, improved awareness of gait impairments, improved efficiency, improved performance, improved safety Additional Treatment Details Reviewed abdominal precautions, pt verbalized understanding. Pt required increased time with standing tasks, verbose and ambulate with slow pace. Home Living Obtained Home Living and PLOF info from: Patient, Patient s family member Lives With: Alone (Daughter able to assist) Type of Home: House Home Layout: One level, Laundry in basement, Stairs between floors (working on bringing laundry up to main level) Rails on inside stairs: 1 rail Number of stairs inside home: 12 Bathroom Shower/Tub: Tub/shower unit (pt showers or sits in tub to bathe) Bathroom Toilet: Standard Bathroom Equipment: (none) Bathroom Accessibility: Accessible Mobility Equipment: (none per pt) Additional Objective Details - Home Living: Daughter completes financial services representative, medication management (post CVA, prior to CVA, pt was independent w/ med management). Pt endorsing x1 fall recently Prior Level of Function Level of Sherman - Transfers/Ambulation/Mobility: Independent with household ambulation, Independent with functional transfers Level of Sherman - ADLs: Independent Level of [place] - Homemaking: Independent Driving: Patient drives (pt's daughter assist (states has not been driving as much recently)) For complete objective data, detailed plan of care and patient education refer to: PT Evaluation flowsheet, PT Evaluation and Treatment flowsheet, PT Treatment flowsheet, patient Plan of Care, Plan of Care progress note, and Patient Education. This note stands as the current Discharge Summary upon patient discharge from the hospital or completion of Physical Therapy Plan of Care. Surgical Oncology Daily Progress Note Patient Name: Merlyn Perez MR #: [id number] : 1940 Assessment and Plan: 82 y.o. female w/ PMHx of HTN, HLD, anxiety/depression, asthma, GERD, recent admission for CVA (11/27/2022) on Plavix, w/ hx of R frontal, parietal, and L temporal infarctions, h/o CCY who presented to [facility] on 12/17/2022 as transfer from [facility] with RLQ back pain, concern for mass. 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 Having back pain and feels distended. She is not passing gas. Last BM was yesterday morning. She did ambulate the hallways yesterday Objective: Vital Signs BP (!) 186/90 (BP Location: Right arm, Patient Position: Lying) Pulse (!) 114 Temp 97.9 F (36.6 C) (Oral) Resp 17 Ht 5' 3 Wt 69.8 kg (153 lb 14.1 oz) SpO2 93% BMI 27.26 kg/m Constitutional NAD Head Normocephalic, atraumatic Ears Grossly normal hearing, auricles without deformity Eyes EOMI, vision grossly intact Neck Trachea midline Cardiovascular HDS Chest Non-labored breathing, equal chest rise Abdomen Soft, mild diffuse TTP; mildly distended; no peritoneal signs, incisions w exofin c/d/I. NG with brown output Extremities ZARAGOZA Skin Warm, dry, intact Neurologic: No focal deficits Laboratory Studies: Recent laboratory studies reviewed CBC: Results from last 7 days Lab Units 12/29/22433 WBC K/mcL 8.12 HGB g/dL 11.0* HCT % 34.1* PLT K/mcL 165 Results from last 7 days Lab Units 12/29/2243312/28/2245812/27/22 0715 HGB g/dL 11.0* 11.1* 11.0* Chem: Results from last 7 days Lab Units 12/29/2243312/28/22458 SODIUM mmol/L 139 138 POTASSIUM mmol/L 4.0 3.5 CHLORIDE mmol/L 104 103 BUN mg/dL 6* 5* CREATININE mg/dL 0.37* 0.35* CALCIUM mg/dL 8.7 8.5 TOTAL PROTEIN g/dL -- 5.8* ALK PHOS U/L -- 83 ALT U/L -- 15 AST U/L -- 19 GLUCOSE mg/dL 111* 123* Results from last 7 days Lab Units 12/29/22 0434 12/28/22 0459 12/27/22 0715 CREATININE mg/dL 0.37* 0.35* 0.41* LFT's: Results from last 7 days Lab Units 12/28/22 0459 ALK PHOS U/L 83 BILIRUBIN TOTAL mg/dL 0.4 TOTAL PROTEIN g/dL 5.8* AST U/L 19 ALT U/L 15 Diagnostic Imaging: Recent diagnostic imaging/reports reviewed Associated attestation - Kell Deras MD - 12/29/2022 7:14 PM EDT I have reviewed the notes, assessments, and/or procedures performed by resident/KRISTEN, I concur with her/his documentation with the following additions/addendums: I have personally seen and examined the patient on rounds. Still with abdominal bloating. Having bowel movements. Reports pain in the right back. Mild aching in the abdomen. Incisions c/d/I, abd softly distended, nonperitoneal with mild TTP throughout. Continue NG tube decompression. Repeat CT tomorrow to assess small bowel. 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 Occupational Therapy OCCUPATIONAL THERAPY TREATMENT NOTE Skilled Therapy Needs After Discharge Anticipate Resolution of Current Assessment Limitations Including: Pain, Mechanical Barriers Are Skilled Therapy Services Needed After Discharge: Yes Intensity of Skilled Therapy: 5 to 7 days per week Anticipated Duration of Skilled Therapy: Duration 10 - 30 days DME Recommendation: To be determined at next level of care Rehab Potential: Excellent Outcomes Measures Prior Function Daily Activity Raw Score: 24 Prior Function Daily Activity % Impaired: 0% AM-PAC Daily Activity Raw Score: 12 AM-PAC Daily Activity % Impaired: 66.57% Activity Tolerance Activity Tolerance: Tolerates 30 min acitivty with multiple rests Therapy Precautions Orthotic Devices: No General Rehab Precautions: Abdominal, Fall risk Cognition Arousal/Alertness: Appropriate responses to stimuli Orientation Level: Oriented X4 Executive functioning: Min impairment, Mod impairment, Insight Safety Judgment: Decreased awareness of need for assistance, Decreased awareness of need for safety Problem Solving: Assistance required to generate solutions, Assistance required to implement solutions Attention: Attends to quiet environment Hearing Status: Hard of hearing Social Interaction: Cooperative, Word finding, Expressive deficit Comments: Pts daughter states the pt often has trouble finding the right word and utilizes another word in place of the correct word that does not make sense to others. Reviewed abdominal precautions with pt and daughter verbalizing understanding. Skilled Intervention Provided: patient education For: preparing for self-care tasks, necessary precautions Resulting In: increased insight into deficits ADL Grooming: Set-up, Stand by assist Upper Body Bathing: Set-up, Stand by assist Lower Body Bathing: (education) Lower Body Dressing: (education) Overall ADL Performance - Skilled Intervention Provided: verbal cues, patient education, caregiver/family education with patient involvement Overall ADL Performance - For: compensatory strategies, energy conservation Overall ADL Performance - Resulting In: improved awareness, improved caregiver/family awareness IADL Bed Mobility Functional Transfers Sit to Stand: Contact guard assist Bed to Chair Transfers: Stand by assist, Contact guard assist Toilet Transfers: Contact guard assist (simulation) Skilled Intervention Provided: verbal cues, patient education For: safety during functional task(s) Resulting In: improved awareness, improved activity tolerance Exercise Balance Treatment Interventions Additional Treatment Details Engaged pt in multiple seated grooming tasks with setup. Reviewed benefits of utilizing logroll techique to maintain abdominal precautions. Reviewed compensatory techniques to facilitate LB adls while maintaining abdominal precautions. Home Living Obtained Home Living and PLOF info from: Patient, Patient s family member Lives With: Alone (Daughter able to assist) Type of Home: House Home Layout: One level, Laundry in basement, Stairs between floors (working on bringing laundry up to main level) Rails on inside stairs: 1 rail Number of stairs inside home: 12 Bathroom Shower/Tub: Tub/shower unit (pt showers or sits in tub to bathe) Bathroom Toilet: Standard Bathroom Equipment: (none) Bathroom Accessibility: Accessible Mobility Equipment: (none per pt) Additional Objective Details - Home Living: Daughter completes financial services representative, medication management (post CVA, prior to CVA, pt was independent w/ med management). Pt endorsing x1 fall recently Prior Level of Function Level of Sherman - Transfers/Ambulation/Mobility: Independent with household ambulation, Independent with functional transfers Level of Sherman - ADLs: Independent Level of [place] - Homemaking: Independent Driving: Patient drives (pt's daughter assist (states has not been driving as much recently)) For complete objective data, detailed plan of care and patient education refer to: OT Evaluation flowsheet, OT Evaluation and Treatment flowsheet, OT Treatment flowsheet, patient Plan of Care, Plan of Care progress note, and Patient Education. This note stands as the current Discharge Summary upon patient discharge from the hospital or completion of Occupational Therapy Plan of Care. Nutrition Care Follow Up Monitoring and Evaluation: Pt did not tolerate diet advancement post-op; TPN started 12/27 Nutrition Diagnosis: Inadequate oral food/beverage intake related to alteration in GI tract structure and/or function as evidenced by NPO, need for parenteral nutrition. Not Resolved Nutrition Intervention: Continue Parenteral Nutrition Nutrition Prescription: Diet: NPO Adult TPN: see NST documentation Nutrition Goals: TPN to meet nutrition needs until oral/enteral route established. Start Date:12/28/2022 Expected End Date:01/01/2023 Nutrition Education: No needs at this time Assessment: Pertinent Clinical Information: Pt was on CLD, made NPO 12/25 due to abdominal distention, nausea/emesis. KUB with ileus vs pSBO. TPN started 12/27. +NGT. +BM this am. Current ht:5' 3 Current wt:.69 kg (152 lb 1.9 oz) Body mass index is 26.95 kg/m . BMI Classification: Overweight (25-29.9) Wt hx: Admission weight 68 kg (stated) Wt Readings from Last 5 Encounters: 12/28/22 69 kg (152 lb 1.9 oz) Current diet order: NPO, TPN Recent intake: no documentation of PO intakes per flowsheets this admit. - Current intake meets estimated needs. - Patient/family comments: ANTHONY, pt meeting with other care team members at visit. Will attempt follow-up. Difficulty Chewing/Swallowing: No Skin Integrity: trocar sites per flowsheet GI Function: LBM 12/28/22, +constipation/ cramping/ distention per flowsheet Labs: Recent Labs 12/28/22 0459 NA 138 K 3.5 BICARB 27 CL 103 GLUCOSE 123* BUN 5* CREATININE 0.35* MG 2.0 PHOS 3.1 No results found for: HGBA1C Scheduled Meds: acetaminophen 1,000 mg Intravenous Q8H enoxaparin (LOVENOX) injection 40 mg Subcutaneous Daily insulin lispro 0-30 Units Subcutaneous Q4H JOSH methocarbamol 1 g Intravenous Q8H metoprolol 5 mg Intravenous Q6H JOSH pantoprazole 40 mg Intravenous Daily sodium chloride (PF) 10 mL Intracatheter Q8H JOSH sodium chloride (PF) 5 mL Intravenous Q8H JOSH Continuous Infusions: Adult TPN 50 mL/hr at 12/28/22 0000 Adult TPN dextrose lactated Ringers 75 mL/hr (12/28/22 0327) sodium chloride 0.9 % Stopped (12/24/221) Estimated Energy Needs Total Energy Estimated Needs: 9890-7213 Method for Estimating Needs: 22-25 kcals/kg IBW (BMI 24.9: 64kg) Total Protein Estimated Needs: 76-96g Method for Estimating Needs: 1.2-1.5g/kg IBW (BMI 24.9: 64kg) Fluid Needs Total Fluid Estimated Needs: 6685-9007 Method for Estimating Needs: 22-25ml/kg IBW (BMI 24.9: 64kg) Assessed By: JOSE ANTONIO Borden, RD, LD NUTRITION SUPPORT TEAM DAILY PROGRESS NOTE Pertinent clinical issues: remains NPO, no flatus with c/o abdominal bloating. N Current weight: 69kg Wt change since admit: +1kg (68kg 12/17) Current TPN Prescription: Component Order Dose Admin Dose parenteral amino acid 15% no.6 15 % Solp 50 g/day 49.95 g dextrose 70% Solp 150 g/day 149.8 g fat emulsion (INTRALIPID,LIPOSYN) 20 % Emul 45 g/day 225 mL sterile water Solp 347.55 mL/day 347.55 mL sodium chloride (CONC 23.4%) 4 mEq/mL Solp 100 mEq 100 mEq potassium acetate 2 mEq/mL Soln 40 mEq 40 mEq potassium phosphate 3 mmol/mL Soln 15 mmol 15 mmol calcium gluconate 100 mg/mL (10%) Soln 8 mEq 1.7 g magnesium sulfate 4 mEq/mL (50 %) Soln 10 mEq 10 mEq mvi, adult no.4 with vit K 3,300 unit- 150 mcg/10 mL Soln 10 mL 10 mL trace elements Zn-Cu-Mn-Se 3 mg-0.3 mg-55 mcg-60 mcg/mL Soln 1 mL 1 mL TPN at 50ml/hr provides 1159 kcals, 50g PRO MIVF: LR @75ml/hr Recent Labs 12/26/22 0715 12/27/22 0715 12/28/22 0459 NA 141 141 138 K 3.4* 3.3* 3.5 BICARB 25 27 27 CL 108 106 103 GLUCOSE 118* 111* 123* BUN 10 5* 5* CREATININE 0.46* 0.41* 0.35* MG 1.9 1.7 2.0 PHOS 2.6* 3.6 3.1 ALBUMIN -- -- 2.7* PREALBUMIN -- -- 10.5* TRIG -- -- 148 RAUL -- -- 4.7 FSB-136 x24hrs; 0 units corrective insulin within the past 24hr Estimated Energy Needs Total Energy Estimated Needs: 9153-4685 Method for Estimating Needs: 22-25 kcals/kg IBW (BMI 24.9: 64kg) Total Protein Estimated Needs: 76-96g Method for Estimating Needs: 1.2-1.5g/kg IBW (BMI 24.9: 64kg) Fluid Needs Total Fluid Estimated Needs: 4808-7209 Method for Estimating Needs: 22-25ml/kg IBW (BMI 24.9: 64kg) TPN Changes: -increase to goal: 80g AA, 240g Dextrose, 45g ILE at 70ml/hr (1586 kcals, 80g PRO) -increase to [address], LD, [facility] Inpatient Progress Note 12/28/2022 Merlyn Perez 1940 [id number] Assessment/Plan: Merlyn Perez is a 82 y.o. female with a history of HTN and recent CVA 11/27/22 who presented to [facility] 12/14/22 and again 12/16/22 for recurrent abdominal pain. OSH CT C/A/P 12/17/22 noted enlarged mediastinal LNs with 5mm RLL pulmonary nodule and RLQ 1.7x1.6cm mass abbutting the distal small bowel. Transferred to [facility] 12/17/2022 for SurgOnc evaluation. 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 Course complicated 12/25 with ileus s/p NGT. RLQ Abdominal Mass: GI followed, s/p colonoscopy 12/20/[address] CT A&P 12/21 with findings concerning for malignancy in RLQ. SurgOnc following, s/p right colectomy with terminal ileum resection 12/[address] Deras. Path pending. PICC placed 12/27 and TPN started. Pain control, Pain Management consulted 12/28. Monitor respiratory status with IV narcotics. Ileus: confirmed on KUB 12/25/22, s/p NGT 12/25 with good output, had to be replaced 12/[address] A&P 12/26 with edematous bowel but no perforation, KUB 12/27 with ileus vs pSBO -> NGT advanced. SurgOnc following, NPO, IVFs, pain control. Pending course, may require OR for dx lap. Leukocytosis: reactive to surgery. Afebrile, no infectious symptoms, resolved. Epigastric Pain: GI followed, s/p negative EGD 12/20/22. Acute Metabolic Encephalopathy: transient, likely with baseline cognitive impairment and receiving Dilaudid. Resolved. Lymphadenopathy: noted on OSH CT C/A/P as mentioned above. Pulmonary followed, follow-up CT in [address] A&P 12/21 with 14mm LLL nodule along with several non-specific nodules. Outpatient follow-up. Recent CVA: with residual left facial droop, mild dysarthria. Hospitalized 11/27/22. Neurology followed, OSH MRI brain reviewed, tiny stroke burden. Restart AP as able and statin.Follow-up outpatient with [facility] (AVS updated). HTN Urgency: per hx, amlodipine, atenolol, lisinopril and Lasix held given NPO status. On scheduled IV metoprolol and has PRNs. Pain control given this is the source of elevated BP. Code Status: full, discussed on admit. DVT Prophylaxis: Lovenox. Current living situation: home. Expected disposition: SNF vs [facility]. Estimated discharge date: 3-4 days pending specialty clearance. *Family updated bedside 12/28. Subjective: SBP again elevated this AM - likely pain related, CMP stable, Hg stable. Continues to have pain. Increased IV morphine. Discussed case with primary Surgeon, agreeable for Pain Management evaluation. Updated daughter at bedside. Patient mainly complains of right paraspinal pain but it has been present even prior to admit, seems worse now after OR. Physical Exam: BP (!) 192/96 (BP Location: Right arm, Patient Position: Lying) Pulse (!) 107 Temp 97.3 F (36.3 C) (Oral) Resp 14 Ht 5' 3 Wt 69 kg (152 lb 1.9 oz) SpO2 95% BMI 26.95 kg/m General: Mild distress due to pain. Eyes: EOMI. ENT: Neck supple. NGT in place. Cardiovascular: Regular rate. Respiratory: Clear to auscultation. Gastrointestinal: Soft, generalized tenderness, non-peritoneal. Genitourinary: No suprapubic tenderness. Musculoskeletal: No edema. Right paraspinal tenderness. Skin: Warm, dry. Neuro: Alert. Psych: Mood appropriate. Current Medications: acetaminophen 1,000 mg Intravenous Q8H enoxaparin (LOVENOX) injection 40 mg Subcutaneous Daily gabapentin 300 mg Oral Daily insulin lispro 0-30 Units Subcutaneous Q4H [facility] lidocaine 1 patch Transdermal Daily methocarbamol 1 g Intravenous Q8H metoprolol 5 mg Intravenous Q6H [facility] pantoprazole 40 mg Oral Daily potassium chloride 20 mEq Intravenous Q2H sodium chloride (PF) 10 mL Intracatheter Q8H JOS[facility] sodium chloride (PF) 5 mL Intravenous Q8H [facility] Labs, Imaging and Studies reviewed: Results from last 7 days Lab Units 12/28/2245812/27/22 0715 12/26/22 0715 WBC K/mcL 7.00 6.18 8.72 HGB g/dL 11.1* 11.0* 10.7* HCT % 32.7* 35.3* 34.8* PLT K/mcL 175 185 182 Results from last 7 days Lab Units 12/28/2245812/27/22 0715 12/26/22 0715 SODIUM mmol/L 138 141 141 POTASSIUM mmol/L 3.5 3.3* 3.4* CHLORIDE mmol/L 103 106 108 BICARB mmol/L 27 27 25 BUN mg/dL 5* 5* 10 CREATININE mg/dL 0.35* 0.41* 0.46* EGFR mL/min/1.73 m2 103 99 96 GLUCOSE mg/dL 123* 111* 118* CALCIUM mg/dL 8.5 8.6 8.4 PHOSPHORUS mg/dL 3.1 3.6 2.6* Results from last 7 days Lab Units 12/28/22 0459 ALT U/L 15 AST U/L 19 ALK PHOS U/L 83 BILIRUBIN TOTAL mg/dL 0.4 Results from last 7 days Lab Units 12/23/22 0652 INR 1.1 Surgical Oncology Daily Progress Note Patient Name: Merlyn Perez MR #: [id number] : 1940 Assessment and Plan: 82 y.o. female w/ PMHx of HTN, HLD, anxiety/depression, asthma, GERD, recent admission for CVA (11/27/2022) on Plavix, w/ hx of R frontal, parietal, and L temporal infarctions, h/o CCY who presented to [facility] on 12/17/2022 as transfer from [facility] with RLQ back pain, concern for mass. 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 Not passing flatus. Still remains bloated and distended with NG in place. Worst pain is at lower incision Objective: Vital Signs BP (!) 192/96 (BP Location: Right arm, Patient Position: Lying) Pulse (!) 107 Temp 97.3 F (36.3 C) (Oral) Resp 14 Ht 5' 3 Wt 69 kg (152 lb 1.9 oz) SpO2 95% BMI 26.95 kg/m Constitutional NAD Head Normocephalic, atraumatic Ears Grossly normal hearing, auricles without deformity Eyes EOMI, vision grossly intact Neck Trachea midline Cardiovascular HDS Chest Non-labored breathing, equal chest rise Abdomen Soft,mild diffuse TTP; mildly distended; no peritoneal signs, incision sites c/d/i and covered with surgical glue Extremities ZARAGOZA Skin Warm, dry, intact Neurologic: No focal deficits Laboratory Studies: Recent laboratory studies reviewed CBC: Results from last 7 days Lab Units 12/28/22 0459 WBC K/mcL 7.00 HGB g/dL 11.1* HCT % 32.7* PLT K/mcL 175 Results from last 7 days Lab Units 12/28/22 0459 12/27/22 0715 12/26/22 0715 HGB g/dL 11.1* 11.0* 10.7* Chem: Results from last 7 days Lab Units 12/28/22 0459 SODIUM mmol/L 138 POTASSIUM mmol/L 3.5 CHLORIDE mmol/L 103 BUN mg/dL 5* CREATININE mg/dL 0.35* CALCIUM mg/dL 8.5 TOTAL PROTEIN g/dL 5.8* ALK PHOS U/L 83 ALT U/L 15 AST U/L 19 GLUCOSE mg/dL 123* Results from last 7 days Lab Units 12/28/22 0459 12/27/22 0715 12/26/22 0715 CREATININE mg/dL 0.35* 0.41* 0.46* LFT's: Results from last 7 days Lab Units 12/28/22 0459 ALK PHOS U/L 83 BILIRUBIN TOTAL mg/dL 0.4 TOTAL PROTEIN g/dL 5.8* AST U/L 19 ALT U/L 15 Diagnostic Imaging: Recent diagnostic imaging/reports reviewed Carmen Lu MD PGY5 12/28/2022 6:49 AM Pager: [phone] Associated attestation - Kell Deras MD - 12/28/2022 10:01 AM EDT I have reviewed the notes, assessments, and/or procedures performed by resident/KRSITEN, I concur with her/his documentation with the following additions/addendums: I have personally seen and examined the patient on rounds. Patient having ongoing right lower back pain with abdominal bloating. Had a bowel movement this morning. Abdomen is distended, soft, no peritoneal signs, mild diffuse tenderness. Incisions are well-healing Reviewed with the patient and her daughter who is in the room again her likely venous congestion on CT scan causing her persistent abdominal distention and slow small bowel transit. She did have a bowel movement this morning which is reassuring. Her lab work is also reassuring. [facility] and will plan for pain management consult. Monitor abdominal exam and if necessary will repeat CT. Discussed with the patient that should she have worsening abdominal pain or changes in her clinical status that may indicate small bowel ischemia as a result of the venous congestion may need repeat operation which they are open to. Keep NG tube. TPN for nutrition. Care Management Progress Note Date: 12/27/2022 Time: 2:37 PM Patient Name: Merlyn Perez Date of : 1940 Discharge Plan: D/C Disposition: Rehab Facility Post-Acute Patient Choice 1: [facility] Post[facility]Ac[facility] Patient Choice 2: [facility] Options Reviewed: Possible expense, Explained services/benefits Reason for Choice: Patient/Family preference Regulatory Documentation: Medicare IM Regulatory Documentation Status: Certified Patient Paper Copy: Patient received paper copy Discharging Transportation Plan: Transportation Type: Auto (daughter will provide transportation a DC) vs ambulance Discharge Plan Status: Following for discharge disposition Currently pt is NPO, NG and currently starting on TPN with PICC . Goal per Dr. Deras goal is no TPN on discharge. Referrals sent to [facility]- Spoke with Ani siddiqui for [facility] phone [phone] and they can accept with no NG. They can accept TPN if needed. No covid testing needed. 2. . [facility]- pending. Spoke with pt and daughter in room and their first choice is [facility]. Will follow up with Ani siddiqui Tuesday timing when medically will be ready. Surgical Oncology Daily Progress Note Patient Name: Merlyn Perez MR #: [id number] : 1940 Assessment and Plan: 82 y.o. female w/ PMHx of HTN, HLD, anxiety/depression, asthma, GERD, recent admission for CVA (11/27/2022) on Plavix, w/ hx of R frontal, parietal, and L temporal infarctions, h/o CCY who presented to [facility] on 12/17/2022 as transfer from [facility] with RLQ back pain, concern for mass. 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 Had BM overnight, but unsure if passed flatus. Having some abdominal pain from distention. Objective: Vital Signs BP (!) 185/91 Comment: RN Notified Pulse 94 Temp 97.9 F (36.6 C) (Oral) Resp 14 Ht 5' 3 Wt 68 kg (150 lb) SpO2 96% BMI 26.57 kg/m Constitutional NAD Head Normocephalic, atraumatic Ears Grossly normal hearing, auricles without deformity Eyes EOMI, vision grossly intact Neck Trachea midline Cardiovascular HDS Chest Non-labored breathing, equal chest rise Abdomen Soft,mild diffuse TTP; mildly distended; no peritoneal signs, incision sites c/d/i and covered with surgical glue Extremities ZARAGOZA Skin Warm, dry, intact Neurologic: No focal deficits Laboratory Studies: Recent laboratory studies reviewed CBC: Results from last 7 days Lab Units 12/26/22 0715 WBC K/mcL 8.72 HGB g/dL 10.7* HCT % 34.8* PLT K/mcL 182 Results from last 7 days Lab Units 12/26/22 0715 12/25/22 0702 12/24/22 0553 HGB g/dL 10.7* 13.0 11.4* Chem: Results from last 7 days Lab Units 12/26/22 0715 SODIUM mmol/L 141 POTASSIUM mmol/L 3.4* CHLORIDE mmol/L 108 BUN mg/dL 10 CREATININE mg/dL 0.46* CALCIUM mg/dL 8.4 GLUCOSE mg/dL 118* Results from last 7 days Lab Units 12/26/22 0715 12/25/22 0702 12/24/22 0553 CREATININE mg/dL 0.46* 0.53* 0.49* LFT's: Invalid input(s): LABALBU Diagnostic Imaging: Recent diagnostic imaging/reports reviewed Carmen Lu MD PGY5 12/27/2022 7:09 AM Pager: [phone] Associated attestation - Kell Deras MD - 12/27/2022 11:37 AM EDT I have reviewed the notes, assessments, and/or procedures performed by resident/KRISTEN, I concur with her/his documentation with the following additions/addendums: I have personally seen and examined the patient on rounds. Patient complaining about lower back pain. Endorses some abdominal bloating. Abdomen is only mildly tender. On exam she has some mild abdominal tenderness and mild bloating. Incisions are clean dry and intact. NG tube in place with gastric/bilious output. Reviewed her CT scan from over the weekend as well as her follow-up KUB. Progression of contrast to the anastomosis to the rectum. She is having evidence of bowel function. There is a long segment of thickened small bowel which I suspect is likely due to venous congestion as there is good arterial inflow noted on the CT scan but what appears to be some dilated venous drainage in this segment. We will monitor her exam and labs over the next several days. If she has clinical deterioration we will consider return to the operating room but this most likely will improve with time. Continue NG tube. PICC TPN given that is been over a week since she had meaningful nutritional intake. [facility] Inpatient Progress Note 12/27/2022 Merlyn Perez 1940 [id number] Assessment/Plan: Merlyn Perez is a 82 y.o. female with a history of HTN and recent CVA 11/27/22 who presented to [facility] 12/14/22 and again 12/16/22 for recurrent abdominal pain. OSH CT C/A/P 12/17/22 noted enlarged mediastinal LNs with 5mm RLL pulmonary nodule and RLQ 1.7x1.6cm mass abbutting the distal small bowel. Transferred to [facility] 12/17/2022 for SurgOnc evaluation. 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 Course complicated 12/25 with ileus s/p NGT. RLQ Abdominal Mass: GI followed, s/p colonoscopy 12/20/[address] A&P 12/21 with findings concerning for malignancy in RLQ. SurgOnc following, s/p right colectomy with terminal ileum resection 12/[address] Deras. Path pending. Pain control, monitor respiratory status with IV narcotics. Ileus: confirmed on KUB 12/25, s/p NGT 12/25 with good output, had to be replaced 12/[address] A&P 12/26 with edematous bowel but no perforation, KUB 12/27 with ileus vs pSBO -> NGT advanced. SurgOnc following, NPO, IVFs, pain control. Leukocytosis: reactive to surgery. Afebrile, no infectious symptoms, resolved. Epigastric Pain: GI followed, s/p negative EGD 12/20/22. Acute Metabolic Encephalopathy: transient, likely with baseline cognitive impairment and receiving Dilaudid. Resolved. Lymphadenopathy: noted on OSH CT C/A/P as mentioned above. Pulmonary followed, follow-up CT in [address] A&P 12/21 with 14mm LLL nodule along with several non-specific nodules. Outpatient follow-up. Recent CVA: with residual left facial droop, mild dysarthria. Hospitalized 11/27/22. Neurology followed, OSH MRI brain reviewed, tiny stroke burden. Restart AP as able. Continued statin. Follow-up outpatient with [facility] (AVS updated). Meds held 12/25 for ileus. HTN: per hx, continued atenolol. Resumed lisinopril 12/24, will resume Lasix once tolerating PO well. Meds held 12/25 for ileus. PRNs added. Code Status: full, discussed on admit. DVT Prophylaxis: Lovenox. Current living situation: home. Expected disposition: SNF vs C. Estimated discharge date: 2-3 days pending specialty clearance. *Family updated bedside 12/27. Subjective: SBP elevated, CT A&P yesterday with edematous bowel but no perforation. Added PRN hydralazine. KUB this AM with ileus vs pSBO, needs to be advanced. Still with pain, shortened IV morphine interval. Discussed with daughter. Physical Exam: BP (!) 185/91 Pulse 94 Temp 97.9 F (36.6 C) (Oral) Resp 14 Ht 5' 3 Wt 68 kg (150 lb) SpO2 96% BMI 26.57 kg/m General: Mild distress with NGT. Eyes: EOMI. ENT: Neck supple. NGT in place. Cardiovascular: Regular rate. Respiratory: Clear to auscultation. Gastrointestinal: Soft, mild tenderness. Genitourinary: No suprapubic tenderness. Musculoskeletal: No edema. Skin: Warm, dry. Neuro: Alert. Psych: Mood appropriate. Current Medications: acetaminophen 1,000 mg Intravenous Q8H enoxaparin (LOVENOX) injection 40 mg Subcutaneous Daily gabapentin 300 mg Oral Daily lidocaine 1 patch Transdermal Daily metoprolol 5 mg Intravenous Q6H [facility] pantoprazole 40 mg Oral Daily sodium chloride (PF) 5 mL Intravenous Q8H [facility] Labs, Imaging and Studies reviewed: Results from last 7 days Lab Units 12/26/22 0715 12/25/22 0702 12/24/22 0553 WBC K/mcL 8.72 18.58* 16.60* HGB g/dL 10.7* 13.0 11.4* HCT % 34.8* 41.6 36.0 PLT K/mcL 182 258 190 Results from last 7 days Lab Units 12/26/22 0715 12/25/22 0702 12/24/22 0553 SODIUM mmol/L 141 137 140 POTASSIUM mmol/L 3.4* 3.9 4.4 CHLORIDE mmol/L 108 103 105 BICARB mmol/L 25 25 28 BUN mg/dL 10 11 6* CREATININE mg/dL 0.46* 0.53* 0.49* EGFR mL/min/1.73 m2 96 93 95 GLUCOSE mg/dL 118* 145* 151* CALCIUM mg/dL 8.4 9.0 8.9 PHOSPHORUS mg/dL 2.6* 3.6 2.4* Results from last 7 days Lab Units 12/23/22 0652 12/20/22 0750 INR 1.1 1.1 Surgical Oncology Daily Progress Note Patient Name: Merlyn Perez MR #: [id number] : 1940 Assessment and Plan: 82 y.o. female w/ PMHx of HTN, HLD, anxiety/depression, asthma, GERD, recent admission for CVA (11/27/2022) on Plavix, w/ hx of R frontal, parietal, and L temporal infarctions, h/o CCY who presented to [facility] on 12/17/2022 as transfer from [facility] with RLQ back pain, concern for mass. 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 NG tube dislodged overnight and replaced. Having bowel movements, but not sure about gas. Continues to feel bloated. Objective: Vital Signs BP (!) 157/82 (BP Location: Left arm, Patient Position: Sitting) Pulse 80 Temp 97.6 F (36.4 C) (Oral) Resp 18 Ht 5' 3 Wt 68 kg (150 lb) SpO2 96% BMI 26.57 kg/m Constitutional NAD Head Normocephalic, atraumatic Ears Grossly normal hearing, auricles without deformity Eyes EOMI, vision grossly intact Neck Trachea midline Cardiovascular HDS Chest Non-labored breathing, equal chest rise Abdomen Soft,mild diffuse TTP; mildly distended; no peritoneal signs, incision sites c/d/i and covered with surgical glue Extremities ZARAGOZA Skin Warm, dry, intact Neurologic: No focal deficits Laboratory Studies: Recent laboratory studies reviewed CBC: Results from last 7 days Lab Units 12/26/22 0715 WBC K/mcL 8.72 HGB g/dL 10.7* HCT % 34.8* PLT K/mcL 182 Results from last 7 days Lab Units 12/26/22 0715 12/25/22 0702 12/24/22 0553 HGB g/dL 10.7* 13.0 11.4* Chem: Results from last 7 days Lab Units 12/26/22 0715 12/20/22 0750 12/19/22 1221 SODIUM mmol/L 141 < > 131* POTASSIUM mmol/L 3.4* < > 4.2 CHLORIDE mmol/L 108 < > 96* BUN mg/dL 10 < > 10 CREATININE mg/dL 0.46* < > 0.56* CALCIUM mg/dL 8.4 < > 9.2 TOTAL PROTEIN g/dL -- -- 7.0 ALK PHOS U/L -- -- 106 ALT U/L -- -- 43* AST U/L -- -- 24 GLUCOSE mg/dL 118* < > 106* < > = values in this interval not displayed. Results from last 7 days Lab Units 12/26/22 0715 12/25/22 0702 12/24/22 0553 CREATININE mg/dL 0.46* 0.53* 0.49* LFT's: Results from last 7 days Lab Units 12/19/22 1221 ALK PHOS U/L 106 BILIRUBIN TOTAL mg/dL 0.7 TOTAL PROTEIN g/dL 7.0 AST U/L 24 ALT U/L 43* Diagnostic Imaging: Recent diagnostic imaging/reports reviewed Carmen Lu MD PGY5 12/26/2022 8:19 AM Pager: [phone] Associated attestation - Doug Olvera MD - 12/26/2022 10:41 AM EDT I have reviewed the notes, assessments, and/or procedures performed by resident, I concur with her/his documentation. I have seen and examined this patient on rounds. ROS performed All Negative Except HPI . I have reviewed the note written by the resident or OPERATIONS OFFICER and concur with the findings / results / plan. The following were reviewed: labs, microbiology, pathology, radiology,cardiology, medications, transcriptions. Any addendums to care and plan are listed below. I have reviewed ct images Ileus Rlq pain Scan today with po and [facility] 12/26/[facility]22 Merlyn Perez 1940 [id number] Assessment/Plan: Merlyn Perez is a 82 y.o. female with a history of HTN and recent CVA 11/27/22 who presented to [facility] 12/14/22 and again 12/16/22 for recurrent abdominal pain. OSH CT C/A/P 12/17/22 noted enlarged mediastinal LNs with 5mm RLL pulmonary nodule and RLQ 1.7x1.6cm mass abbutting the distal small bowel. Transferred to [facility] 12/17/2022 for SurgOnc evaluation. 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 Course complicated 12/25 with ileus s/p NGT. RLQ Abdominal Mass: GI followed, s/p colonoscopy 12/20/[address] A&P 12/21 with findings concerning for malignancy in RLQ. SurgOnc following, s/p right colectomy with terminal ileum resection 12/[address] Deras. Pain control, monitor respiratory status with IV narcotics. Ileus: confirmed on KUB 12/25, s/p NGT 12/25 with good output, had to be replaced 12/25 PM. NPO, IVFs. Possible repeat imaging. Leukocytosis: reactive to surgery. Afebrile, no infectious symptoms, resolved. Epigastric Pain: GI followed, s/p negative EGD 12/20/22. Acute Metabolic Encephalopathy: transient, likely with baseline cognitive impairment and receiving Dilaudid. Resolved. Lymphadenopathy: noted on OSH CT C/A/P as mentioned above. Pulmonary followed, follow-up CT in [address] A&P 12/21 with 14mm LLL nodule along with several non-specific nodules. Outpatient follow-up. Recent CVA: with residual left facial droop, mild dysarthria. Hospitalized 11/27/22. Neurology followed, OSH MRI brain reviewed, tiny stroke burden. Restart AP as able. Continued statin. Follow-up outpatient with [facility] (AVS updated). Meds held 12/25 for ileus. HTN: per hx, continued atenolol. Resumed lisinopril 12/24, will resume Lasix once tolerating PO well. Meds held 12/25 for ileus. Code Status: full, discussed on admit. DVT Prophylaxis: Lovenox. Current living situation: home. Expected disposition: SNF vs C. Estimated discharge date: 2-3 days pending specialty clearance. *Family updated bedside 12/26. Subjective: VSS, overnight NGT removed as patient going to bathroom, reinserted overnight. Remains NPO. K low and replaced. Stable on exam, sitting up with less NGT output as compared to yesterday, pain controlled. Discussed with daughter. Physical Exam: BP (!) 151/77 Pulse 83 Temp 98.5 F (36.9 C) (Axillary) Resp 16 Ht 5' 3 Wt 68 kg (150 lb) SpO2 94% BMI 26.57 kg/m General: NAD. Eyes: EOMI. ENT: Neck supple. NGT in place with less output. Cardiovascular: Regular rate. Respiratory: Clear to auscultation. Gastrointestinal: Soft, tender. Genitourinary: No suprapubic tenderness. Musculoskeletal: No edema. Skin: Warm, dry. Neuro: Alert. Psych: Mood appropriate. Current Medications: acetaminophen 1,000 mg Intravenous Q8H enoxaparin (LOVENOX) injection 40 mg Subcutaneous Daily gabapentin 300 mg Oral Daily lidocaine 1 patch Transdermal Daily metoprolol 5 mg Intravenous Q6H JOSH pantoprazole 40 mg Oral Daily sodium chloride (PF) 5 mL Intravenous Q8H JOSH Labs, Imaging and Studies reviewed: Results from last 7 days Lab Units 12/25/22 0702 12/24/22 0553 12/23/22 0652 WBC K/mcL 18.58* 16.60* 6.71 HGB g/dL 13.0 11.4* 11.7* HCT % 41.6 36.0 36.0 PLT K/mcL 258 190 196 Results from last 7 days Lab Units 12/25/22 0702 12/24/22 0553 12/23/22 1429 12/23/22 0652 SODIUM mmol/L 137 140 143 141 POTASSIUM mmol/L 3.9 4.4 2.9* 3.0* CHLORIDE mmol/L 103 105 104 101 BICARB mmol/L 25 28 30 32 BUN mg/dL 11 6* 4* 4* CREATININE mg/dL 0.53* 0.49* 0.53* 0.51* EGFR mL/min/1.73 m2 93 95 93 94 GLUCOSE mg/dL 145* 151* 187* 107* CALCIUM mg/dL 9.0 8.9 8.3* 8.6 PHOSPHORUS mg/dL 3.6 2.4* -- 3.4 Results from last 7 days Lab Units 12/19/22 1221 ALT U/L 43* AST U/L 24 ALK PHOS U/L 106 BILIRUBIN TOTAL mg/dL 0.7 Results from last 7 days Lab Units 12/23/22 0652 12/20/22 0750 INR 1.1 1.1 [facility] Inpatient Progress Note 12/25/2022 Merlyn Perez 1940 [id number] Assessment/Plan: Merlyn Perez is a 82 y.o. female with a history of HTN and recent CVA 11/27/22 who presented to [facility] 12/14/22 and again 12/16/22 for recurrent abdominal pain. OSH CT C/A/P 12/17/22 noted enlarged mediastinal LNs with 5mm RLL pulmonary nodule and RLQ 1.7x1.6cm mass abbutting the distal small bowel. Transferred to [facility] 12/17/2022 for SurgOnc evaluation. 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 Course complicated 12/25 with ileus s/p NGT. RLQ Abdominal Mass: GI followed, s/p colonoscopy 12/20/[address] A&P 12/21 with findings concerning for malignancy in RLQ. SurgOnc following, s/p right colectomy with terminal ileum resection 12/[address] Deras. Pain control, monitor respiratory status with IV narcotics. Ileus: confirmed on KUB 12/25, s/p NGT 12/25 with good output. Leukocytosis: reactive to surgery. Afebrile, no infectious symptoms, monitor. Epigastric Pain: GI followed, s/p negative EGD 12/20/22. Acute Metabolic Encephalopathy: transient, likely with baseline cognitive impairment and receiving Dilaudid. Resolved. Lymphadenopathy: noted on OSH CT C/A/P as mentioned above. Pulmonary followed, follow-up CT in [address] A&P 12/21 with 14mm LLL nodule along with several non-specific nodules. Outpatient follow-up. Recent CVA: with residual left facial droop, mild dysarthria. Hospitalized 11/27/22. Neurology followed, OSH MRI brain reviewed, tiny stroke burden. Restart AP as able. Continued statin. Follow-up outpatient with [facility] (AVS updated). Meds held 12/25 for ileus. HTN: per hx, continued atenolol. Resumed lisinopril 12/24, will resume Lasix once tolerating PO well. Meds held 12/25 for ileus. Code Status: full, discussed on admit. DVT Prophylaxis: Lovenox. Current living situation: home. Expected disposition: SNF vs [facility]. Estimated discharge date: 2-3 days pending specialty clearance. *Family updated bedside 12/25. Subjective: VSS, NGT placed by SurgOnc today. NGT with immense output, patient not a fan of NGT but discussed why needs to remain. Daughter stated Neurology f/u not until Fall, would like to f/u at [facility] - updated AVS. Discussed case with Surgery Resident, plan to continue NGT for now. Physical Exam: BP 134/66 (BP Location: Left arm, Patient Position: Lying) Pulse 79 Temp 98.6 F (37 C) (Oral) Resp 16 Ht 5' 3 Wt 68 kg (150 lb) SpO2 92% BMI 26.57 kg/m General: NAD. Eyes: EOMI. ENT: Neck supple. NGT in place with immense output. Cardiovascular: Regular rate. Respiratory: Clear to auscultation. Gastrointestinal: Tender, non-peritoneal. Genitourinary: No suprapubic tenderness. Musculoskeletal: No edema. Skin: Warm, dry. Neuro: Alert. Psych: Mood appropriate. Current Medications: acetaminophen 975 mg Oral Q8H atenoloL 75 mg Oral Daily enoxaparin (LOVENOX) injection 40 mg Subcutaneous Daily gabapentin 100 mg Oral Q8H JOSH lidocaine 1 patch Transdermal Daily lisinopriL 20 mg Oral BID methocarbamol 1 g Intravenous Q8H pantoprazole 40 mg Oral Daily sodium chloride (PF) 5 mL Intravenous Q8H JOSH Labs, Imaging and Studies reviewed: Results from last 7 days Lab Units 12/24/22 0553 12/23/22 0652 12/20/22 0749 WBC K/mcL 16.60* 6.71 8.73 HGB g/dL 11.4* 11.7* 12.8 HCT % 36.0 36.0 38.9 PLT K/mcL 190 196 256 Results from last 7 days Lab Units 12/24/22 0553 12/23/22 1429 12/23/22 0652 SODIUM mmol/L 140 143 141 POTASSIUM mmol/L 4.4 2.9* 3.0* CHLORIDE mmol/L 105 104 101 BICARB mmol/L 28 30 32 BUN mg/dL 6* 4* 4* CREATININE mg/dL 0.49* 0.53* 0.51* EGFR mL/min/1.73 m2 95 93 94 GLUCOSE mg/dL 151* 187* 107* CALCIUM mg/dL 8.9 8.3* 8.6 PHOSPHORUS mg/dL 2.4* -- 3.4 Results from last 7 days Lab Units 12/19/22 1221 ALT U/L 43* AST U/L 24 ALK PHOS U/L 106 BILIRUBIN TOTAL mg/dL 0.7 Results from last 7 days Lab Units 12/23/22 0652 12/20/22 0750 INR 1.1 1.1 Surgical Oncology Daily Progress Note Patient Name: Merlyn Perez MR #: [id number] : 1940 Assessment and Plan: 82 y.o. female w/ PMHx of HTN, HLD, anxiety/depression, asthma, GERD, recent admission for CVA (11/27/2022) on Plavix, w/ hx of R frontal, parietal, and L temporal infarctions, h/o CCY who presented to [facility] on 12/17/2022 as transfer from [facility] with RLQ back pain, concern for mass. 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 Multiple episodes of emesis. Having bowel movements. Objective: Vital Signs BP 134/66 (BP Location: Left arm, Patient Position: Lying) Pulse 79 Temp 98.6 F (37 C) (Oral) Resp 16 Ht 5' 3 Wt 68 kg (150 lb) SpO2 92% BMI 26.57 kg/m Constitutional NAD Head Normocephalic, atraumatic Ears Grossly normal hearing, auricles without deformity Eyes EOMI, vision grossly intact Neck Trachea midline Cardiovascular HDS Chest Non-labored breathing, equal chest rise Abdomen Soft,mild diffuse TTP; mildly distended; no peritoneal signs, incision sites c/d/i and covered with surgical glue Extremities ZARAGOZA Skin Warm, dry, intact Neurologic: No focal deficits Laboratory Studies: Recent laboratory studies reviewed CBC: Results from last 7 days Lab Units 12/24/22 0553 WBC K/mcL 16.60* HGB g/dL 11.4* HCT % 36.0 PLT K/mcL 190 Results from last 7 days Lab Units 12/24/22 0553 12/23/22 0652 12/20/22 0749 HGB g/dL 11.4* 11.7* 12.8 Chem: Results from last 7 days Lab Units 12/24/22 0553 12/20/22 0750 12/19/22 1221 SODIUM mmol/L 140 < > 131* POTASSIUM mmol/L 4.4 < > 4.2 CHLORIDE mmol/L 105 < > 96* BUN mg/dL 6* < > 10 CREATININE mg/dL 0.49* < > 0.56* CALCIUM mg/dL 8.9 < > 9.2 TOTAL PROTEIN g/dL -- -- 7.0 ALK PHOS U/L -- -- 106 ALT U/L -- -- 43* AST U/L -- -- 24 GLUCOSE mg/dL 151* < > 106* < > = values in this interval not displayed. Results from last 7 days Lab Units 12/24/22 0553 12/23/22 1429 12/23/22 0652 CREATININE mg/dL 0.49* 0.53* 0.51* LFT's: Results from last 7 days Lab Units 12/19/22 1221 ALK PHOS U/L 106 BILIRUBIN TOTAL mg/dL 0.7 TOTAL PROTEIN g/dL 7.0 AST U/L 24 ALT U/L 43* Diagnostic Imaging: Recent diagnostic imaging/reports reviewed Carmen Lu MD PGY5 12/25/2022 6:55 AM Pager: [phone] Associated attestation - Doug Olvera MD - 12/25/2022 9:09 AM EDT I have reviewed the notes, assessments, and/or procedures performed by resident, I concur with her/his documentation. I have seen and examined this patient on rounds. ROS performed All Negative Except HPI . I have reviewed the note written by the resident or OPERATIONS OFFICER and concur with the findings / results / plan. The following were reviewed: labs, microbiology, pathology, radiology,cardiology, medications, transcriptions. Any addendums to care and plan are listed below. I have reviewed ct images Distended ngt placed over night > 1 l Ileus On exam no peritonitis Continue current care Await return of bowel fx Anesthesia Progress Note 1 Day Post-Op Procedure(s): LAPAROSCOPIC RIGHT COLECTOMY Assessment / Plan Comment: In no acute distress. DALTON x 4, up with assist as tolerated. Denies post-op nausea, vomiting or sore throat. Temp: [36.3 C-37.3 C] 36.3 C Heart Rate: [83-116] 87 Resp: [14-17] 16 BP: (120-163)/(65-76) 129/76 Surgical Oncology Daily Progress Note Patient Name: Merlyn Perez MR #: [id number] : 1940 Assessment and Plan: 82 y.o. female w/ PMHx of HTN, HLD, anxiety/depression, asthma, GERD, recent admission for CVA (11/27/2022) on Plavix, w/ hx of R frontal, parietal, and L temporal infarctions, h/o CCY who presented to [facility] on 12/17/2022 as transfer from [facility] with RLQ back pain, concern for mass. 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 Denies nausea. Did tolerate some clear liquids. Denies flatus or BM. Objective: Vital Signs BP 136/73 (BP Location: Left arm, Patient Position: Lying) Pulse 87 Temp 98.6 F (37 C) Resp 16 Ht 5' 3 Wt 68 kg (150 lb) SpO2 96% BMI 26.57 kg/m Constitutional NAD Head Normocephalic, atraumatic Ears Grossly normal hearing, auricles without deformity Eyes EOMI, vision grossly intact Neck Trachea midline Cardiovascular HDS Chest Non-labored breathing, equal chest rise Abdomen Soft,mild diffuse TTP; mildly distended; no peritoneal signs, incision sites c/d/i and covered with surgical glue Extremities ZARAGOZA Skin Warm, dry, intact Neurologic: No focal deficits Laboratory Studies: Recent laboratory studies reviewed CBC: Results from last 7 days Lab Units 12/24/22 0553 WBC K/mcL 16.60* HGB g/dL 11.4* HCT % 36.0 PLT K/mcL 190 Results from last 7 days Lab Units 12/24/22 0553 12/23/22 0652 12/20/22 0749 HGB g/dL 11.4* 11.7* 12.8 Chem: Results from last 7 days Lab Units 12/24/22 0553 12/20/22 0750 12/19/22 1221 SODIUM mmol/L 140 < > 131* POTASSIUM mmol/L 4.4 < > 4.2 CHLORIDE mmol/L 105 < > 96* BUN mg/dL 6* < > 10 CREATININE mg/dL 0.49* < > 0.56* CALCIUM mg/dL 8.9 < > 9.2 TOTAL PROTEIN g/dL -- -- 7.0 ALK PHOS U/L -- -- 106 ALT U/L -- -- 43* AST U/L -- -- 24 GLUCOSE mg/dL 151* < > 106* < > = values in this interval not displayed. Results from last 7 days Lab Units 12/24/22 0553 12/23/22 1429 12/23/22 0652 CREATININE mg/dL 0.49* 0.53* 0.51* LFT's: Results from last 7 days Lab Units 12/19/22 1221 12/17/22 1251 ALK PHOS U/L 106 103 BILIRUBIN TOTAL mg/dL 0.7 0.7 BILIRUBIN DIRECT mg/dL -- 0.3 TOTAL PROTEIN g/dL 7.0 6.9 AST U/L 24 34 ALT U/L 43* 61* Diagnostic Imaging: Recent diagnostic imaging/reports reviewed Carmen Lu MD PGY5 12/24/2022 7:33 AM Pager: [phone] Associated attestation - Kell Deras MD - 12/24/2022 1:24 PM EDT I have reviewed the notes, assessments, and/or procedures performed by resident/KRISTEN, I concur with her/his documentation with the following additions/addendums: I have personally seen and examined the patient on rounds. Patient having some abdominal pain and lower back pain. Denies nausea. Abdomen softly distended, mildly tympanic, incisions are clean dry and intact. Okay for clear liquid diet. Hold on advancing diet until she has evidence of bowel function. Reviewed her intraoperative findings of terminal ileal partial obstruction from an extrinsic mass that appeared on exam. PT OT eval. Okay for James removal [facility] 12/24/2022 Merlyn Perez 1940 [id number] Assessment/Plan: Merlyn Perez is a 82 y.o. female with a history of HTN and recent CVA 11/27/22 who presented to [facility] 12/14/22 and again 12/16/22 for recurrent abdominal pain. OSH CT C/A/P 12/17/22 noted enlarged mediastinal LNs with 5mm RLL pulmonary nodule and RLQ 1.7x1.6cm mass abbutting the distal small bowel. Transferred to [facility] 12/17/2022 for SurgOnc evaluation. 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 RLQ Abdominal Mass: GI followed, s/p colonoscopy 12/20/[address] A&P 12/21 with findings concerning for malignancy in RLQ. SurgOnc following, s/p right colectomy with terminal ileum resection 12/[address] Deras. Pain control. Epigastric Pain: GI followed, s/p negative EGD 12/20/22. Acute Metabolic Encephalopathy: transient, likely with baseline cognitive impairment and receiving Dilaudid. Resolved. Lymphadenopathy: noted on OSH CT C/A/P as mentioned above. Pulmonary followed, follow-up CT in [address] A&P 12/21 with 14mm LLL nodule along with several non-specific nodules. Outpatient follow-up. Recent CVA: with residual left facial droop, mild dysarthria. Hospitalized 11/27/22. Neurology followed, OSH MRI brain reviewed, tiny stroke burden. Restart AP as able. Continued statin. HTN: per hx, continued atenolol. Resumed lisinopril 12/24, will resume Lasix once tolerating PO well. Code Status: full, discussed on admit. DVT Prophylaxis: Lovenox. Current living situation: home. Expected disposition: SNF vs [facility]. Estimated discharge date: 1-2 days pending specialty clearance. *Family updated bedside 12/24. Subjective: VSS, WBC 16 likely reactive. Labs stable this AM otherwise. Still with some pain but otherwise doing OK. Discussed awaiting bowel function. Discussed with CM/SW. Resumed lisinopril today. Physical Exam: BP 136/73 (BP Location: Left arm, Patient Position: Lying) Pulse 87 Temp 98.6 F (37 C) Resp 16 Ht 5' 3 Wt 68 kg (150 lb) SpO2 96% BMI 26.57 kg/m General: NAD. Eyes: EOMI. ENT: Neck supple. Cardiovascular: Regular rate. Respiratory: Clear to auscultation. Gastrointestinal: Appropriately tender to palpation post-operatively. Genitourinary: No suprapubic tenderness. Musculoskeletal: No edema. Skin: Warm, dry. Neuro: Alert. Psych: Mood appropriate. Current Medications: acetaminophen 975 mg Oral Q8H atenoloL 75 mg Oral Daily calcium carbonate 500 mg Oral TID AC enoxaparin (LOVENOX) injection 40 mg Subcutaneous Daily gabapentin 300 mg Oral Q8H JOSH lidocaine 1 patch Transdermal Daily pantoprazole 40 mg Oral Daily sodium chloride (PF) 5 mL Intravenous Q8H JOSH Labs, Imaging and Studies reviewed: Results from last 7 days Lab Units 12/24/22 0553 12/23/22 0652 12/20/22 0749 WBC K/mcL 16.60* 6.71 8.73 HGB g/dL 11.4* 11.7* 12.8 HCT % 36.0 36.0 38.9 PLT K/mcL 190 196 256 Results from last 7 days Lab Units 12/23/22 1429 12/23/22 0652 12/20/22 0750 SODIUM mmol/L 143 141 137 POTASSIUM mmol/L 2.9* 3.0* 3.6 CHLORIDE mmol/L 104 101 96* BICARB mmol/L 30 32 27 BUN mg/dL 4* 4* 8 CREATININE mg/dL 0.53* 0.51* 0.54* EGFR mL/min/1.73 m2 93 94 93 GLUCOSE mg/dL 187* 107* 96 CALCIUM mg/dL 8.3* 8.6 9.4 PHOSPHORUS mg/dL -- 3.4 -- Results from last 7 days Lab Units 12/19/22 1221 12/17/22 1251 ALT U/L 43* 61* AST U/L 24 34 ALK PHOS U/L 106 103 BILIRUBIN TOTAL mg/dL 0.7 0.7 Results from last 7 days Lab Units 12/23/22 0652 12/20/22 0750 12/18/22 0448 INR 1.1 1.1 1.1 SURGICAL ONCOLOGY PROGRESS NOTE Patient Name: Merlyn Perez ASSESSMENT AND PLAN Merlyn Perez is a 82 y.o. female with history of HTN, HLD, anxiety/depression, asthma, GERD, recent admission for CVA (11/27/2022) on Plavix, w/ hx of R frontal, parietal, and L temporal infarctions and cholecystectomy who presented to [facility] on 12/17/2022 as transfer from [facility] with RLQ back pain, concern for mass. 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 Regional lymph nodes pattern is concerning as well - s/p laparoscopic R colectomy w terminal ileum resection 12/[address] Deras - CLD, mIVF - Maintain James, remove POD #1 - Multimodal pain and nausea control - Replete electrolytes PRN - AAT/ambulate/IS - DVT ppx lovenox Christin Fontana MD General Surgery PGY-1 Please contact surgical director international application packaging consultant 5PM-6AM and weekends BLUE Pager - [phone] SUBJECTIVE Patient evaluated post operatively. Pain moderately controlled. Denies headache, nausea, SOB, chest pain or heart palpitations. Has not been OOB yet. Review of Systems: All systems were reviewed and otherwise negative except for as noted above PHYSICAL EXAM VITALS Temp: [97.4 F (36.3 C)-98.4 F (36.9 C)] 97.4 F (36.3 C) Heart Rate: [74-91] 90 Resp: [13-21] 18 BP: (131-154)/(54-76) 154/54 PHYSICAL EXAM General: Awake, no acute distress Head: Normocephalic Eyes: Vision grossly intact Neck: Trachea midline Cardiovascular: Hemodynamically stable Pulmonary: Nonlabored breathing on 4L NC, equal chest rise Extremities: No obvious deformities Skin: Dry and intact : James in place GI: Abd soft, ATTP, non-distended, no peritoneal signs Wound: incisions w exofin C/D/I IMAGING/LABS Interval imaging and laboratory results reviewed [facility] Inpatient Progress Note 12/23/2022 Merlyn Perez 1940 [id number] Assessment/Plan: Merlyn Perez is a 82 y.o. 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 CTA C/A/P 12/17/22 with no PE, enlarged mediastinal LN with 5mm pulmonary nodule RLL and RLQ 1.7 x 1.6cm mass abbutting the distal small bowel. She was transferred to [facility] 12/17/2022 for surgical oncology and GI assessment. 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 RLQ Abdominal Mass: Shown on imaging. Could be contributing to abdominal pain. Colonoscopy 12/20/20[address] non-[address]. CT A&P 12/21 with findings concerning for malignancy in RLQ. GI and SurgOnc following. Pain control, monitor respiratory status with IV narcotics. S/p right colectomy with terminal ileum resection 12/[address] eDras. Epigastric pain: Rule out GERD/gastritis/duodenitis. Continued PPI. EGD 12/20/2022 negative. GI following. Constipation: Stool burden shown on imaging. Improved with bowel regimen. Acute metabolic encephalopathy: Likely related to baseline cognitive impairment, hospital-acquired delirium. Reported mood changes with Dilaudid. . Uses narcotics sparingly. EKG pending. If QTc stable, can use Seroquel and Haldol if needed. Resolved. Enlarged Mediastinal Lymph Nodes: Noted on report at [facility], of unclear etiology. Concerning in setting of new mass and with 5mm RLL lung nodule as well. Follow-up CT in 3 months. Pulmonary followed. CT A&P 12/21 with 14mm LLL nodule along with several non-specific nodules. Outpatient follow-up. Recent CVA: Residual left facial droop, mild dysarthria. Hospitalized 11/27/22 for acute b/l CVA. Resumed aspirin and Plavix when okay with surgery. Continued statin. Neurology followed. HTN: Continued atenolol. Reports gastritis with hydralazine. Continue labetalol as needed with parameters. Lisinopril and Lasix held for OR. Hyperglycemia: Recent A1c 5.5% 11/27/22. Likely reactive. Code status: FULL DVT Prophylaxis: Lovenox subcutaneous ppx Current living situation: Home Expected Disposition: Home Estimated discharge date: TBD based on GI and surgery recs and pain control. *Family updated bedside 12/23. Subjective: VSS. S/p right colectomy today. Seen after OR, alert and oriented, mild pain otherwise doing well. Discussed plan of care. K low, replaced via IV. Physical Exam: BP (!) 147/76 Pulse 82 Temp 97.5 F (36.4 C) (Oral) Resp 14 Ht 5' 3 Wt 68 kg (150 lb) SpO2 95% BMI 26.57 kg/m General: NAD. Eyes: EOMI. ENT: Neck supple. Cardiovascular: Regular rate. Respiratory: Clear to auscultation. Gastrointestinal: Appropriately tender to palpation post-operatively. Genitourinary: No suprapubic tenderness. Musculoskeletal: No edema. Skin: Warm, dry. Neuro: Alert. Psych: Mood appropriate. Current Medications: [NOV Hold] acetaminophen 975 mg Oral Q8H [NOV Hold] atenoloL 75 mg Oral Daily [NOV Hold] calcium carbonate 500 mg Oral TID AC ceFAZolin (ANCEF) IVPB 2,000 mg Intravenous Once [NOV Hold] enoxaparin (LOVENOX) injection 40 mg Subcutaneous Daily [NOV Hold] gabapentin 300 mg Oral Q8H JOSH [NOV Hold] lidocaine 1 patch Transdermal Daily metroNIDAZOLE 500 mg Intravenous Once [NOV Hold] pantoprazole 40 mg Oral Daily [MAR Hold] sodium chloride (PF) 5 mL Intravenous Q8H JOSH Labs, Imaging and Studies reviewed: Results from last 7 days Lab Units 12/20/22 0749 12/19/22 1221 12/18/22 0448 WBC K/mcL 8.73 9.95 5.48 HGB g/dL 12.8 12.4 11.8* HCT % 38.9 36.9 35.1* PLT K/mcL 256 247 194 Results from last 7 days Lab Units 12/20/22 0750 12/19/22 1221 12/18/22 0448 SODIUM mmol/L 137 131* 134* POTASSIUM mmol/L 3.6 4.2 4.2 CHLORIDE mmol/L 96* 96* 101 BICARB mmol/L BUN mg/dL 8 10 7* CREATININE mg/dL 0.54* 0.56* 0.40* EGFR mL/min/1.73 m2 93 92 100 GLUCOSE mg/dL 96 106* 109* CALCIUM mg/dL 9.4 9.2 9.0 Results from last 7 days Lab Units 12/19/22 1221 12/17/22 1251 ALT U/L 43* 61* AST U/L 24 34 ALK PHOS U/L 106 103 BILIRUBIN TOTAL mg/dL 0.7 0.7 Results from last 7 days Lab Units 12/20/22 0750 12/18/22 0448 INR 1.1 1.1 Nutrition Care Initial Assessment Reason for visit: Dietitian Screen Nutrition Diagnosis: Inadequate oral food/beverage intake related to alteration in GI tract structure and/or function as evidenced by NPO/CLD Nutrition Intervention/Prescription: Current diet: CLD with Boost Breeze tid Monitor post-op for diet progression/nutrition plans Nutrition Goals: Tolerate diet advancement post-op Start Date:12/22/2022 Expected End Date:12/28/2022 Nutrition Education: Not appropriate due to clinical presentation Subjective: Pt unavailable at time of visit Objective: 82 y.o. Female Dx: abdominal pain Pertinent clinical information: recurrent RLQ back and abdominal pain. Imaging 12/17 with mass adjacent to distal small bowel and enlarged mediastinal LN. GI c/s and s/p c-scope 12/20, without mass or lesion. Surg/onc following and plan on slow bowel prep and OR tomorrow for R colectomy PMHx: HTN, HLD, GERD, CVA Height: 5' 3 Admit wt: 68kg Current weight: 68 kg (150 lb) BMI Body mass index is 26.57 kg/m . Weight History: 72.8kg (11/27/22) Wt Readings from Last 5 Encounters: 12/17/22 68 kg (150 lb) Recent Labs 12/20/22 0750 NA 137 K 3.6 BICARB 27 CL 96* GLUCOSE 96 BUN 8 CREATININE 0.54* Lab Results Component Value Date ALBUMIN 4.1 12/19/2022 Diet Special; Liquid; Clear Liquid Oral nutrition supplements Boost Breeze; Boost Breeze (No Flavor Specified) 3 times daily with meals Diet NPO PO intake: not documented, regular diet 12/20, CLD 12/21 Difficulty Chewing/Swallowing: No Meds: tums, protonix Skin Integrity: Intact Physical Appearance: ANTHONY GI function: +BM (bowel prep) Estimated Energy Needs Total Energy Estimated Needs: 9914-9787 Method for Estimating Needs: 22-25 kcals/kg IBW (BMI 24.9: 64kg) Total Protein Estimated Needs: 76-96g Method for Estimating Needs: 1.2-1.5g/kg IBW (BMI 24.9: 64kg) Assessed by: Shraddha Goemz RD, LD, [facility] Vocera: [phone] [facility] 12/22/2022 Merlyn Perez 1940 [id number] Assessment/Plan: Merlyn Perez is a 82 y.o. 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 CTA C/A/P 12/17/22 with no PE, enlarged mediastinal LN with 5mm pulmonary nodule RLL and RLQ 1.7 x 1.6cm mass abbutting the distal small bowel. She was transferred to [facility] 12/17/2022 for surgical oncology and GI assessment. RLQ Abdominal Mass: Shown on imaging. Could be contributing to abdominal pain. Colonoscopy 12/20/2022 non-[address]. CT A&P 12/21 with findings concerning for malignancy in RLQ. GI and SurgOnc following. Pain control, monitor respiratory status with IV narcotics. Plan for right colectomy 12/23. Pre-Operative Evaluation: see H&P 12/17. Per Neurology 12/17, no contraindication to surgery. EKG pending. Epigastric pain: Rule out GERD/gastritis/duodenitis. Continued PPI. EGD 12/20/2022 negative. GI following. Constipation: Stool burden shown on imaging. Improved with bowel regimen. Acute metabolic encephalopathy: Likely related to baseline cognitive impairment, hospital-acquired delirium. Reported mood changes with Dilaudid. . Uses narcotics sparingly. EKG pending. If QTc stable, can use Seroquel and Haldol if needed. Resolved. Enlarged Mediastinal Lymph Nodes: Noted on report at [facility], of unclear etiology. Concerning in setting of new mass and with 5mm RLL lung nodule as well. Follow-up CT in 3 months. [address] followed[address] CT A&P 12/21 with 14mm LLL nodule along with several non-specific nodules. Outpatient follow-up. Recent CVA: Residual left facial droop, mild dysarthria. Hospitalized 11/27/22 for acute b/l CVA. Resumed aspirin and Plavix when okay with surgery. Continued statin. Neurology followed. HTN: Continued atenolol. Reports gastritis with hydralazine. Continue labetalol as needed with parameters. Discharge medication based on BP trend. Lisinopril and Lasix held for OR. Hyperglycemia: Recent A1c 5.5% 11/27/22. Likely reactive. Code status: FULL DVT Prophylaxis: Lovenox subcutaneous ppx Current living situation: Home Expected Disposition: Home Estimated discharge date: TBD based on GI and surgery recs and pain control. *Family updated bedside 12/22. Subjective: VSS. Plan for OR tomorrow with SurgOnc. Patient with chronic back pain. EKG ordered. Increased gabapentin per family request. Physical Exam: BP (!) 153/76 Pulse 84 Temp 98.7 F (37.1 C) (Oral) Resp 16 Ht 5' 3 Wt 68 kg (150 lb) SpO2 96% BMI 26.57 kg/m General: NAD. Eyes: EOMI. ENT: Neck supple. Cardiovascular: Regular rate. Respiratory: Clear to auscultation. Gastrointestinal: Soft, non distended, RLQ tenderness. Genitourinary: No suprapubic tenderness. Musculoskeletal: No edema. Skin: Warm, dry. Neuro: Alert. Psych: Mood appropriate. Current Medications: acetaminophen 975 mg Oral Q8H atenoloL 75 mg Oral Daily calcium carbonate 500 mg Oral TID AC enoxaparin (LOVENOX) injection 40 mg Subcutaneous Daily erythromycin ethylsuccinate 1,600 mg Oral Once erythromycin ethylsuccinate 1,600 mg Oral Once erythromycin ethylsuccinate 1,600 mg Oral Once furosemide 20 mg Oral Daily gabapentin 100 mg Oral Q8H JOSH gabapentin 100 mg Oral Once lidocaine 1 patch Transdermal Daily lisinopriL 40 mg Oral Daily metroNIDAZOLE 500 mg Oral Once metroNIDAZOLE 500 mg Oral Once metroNIDAZOLE 500 mg Oral Once pantoprazole 40 mg Oral Daily sodium chloride (PF) 5 mL Intravenous Q8H JOSH sodium sulfate, magnesium sulfate, potassium sulfate 1 each Oral Once Labs, Imaging and Studies reviewed: Results from last 7 days Lab Units 12/20/22 0749 12/19/22 1221 12/18/22 0448 WBC K/mcL 8.73 9.95 5.48 HGB g/dL 12.8 12.4 11.8* HCT % 38.9 36.9 35.1* PLT K/mcL 256 247 194 Results from last 7 days Lab Units 12/20/22 0750 12/19/22 1221 12/18/22 0448 SODIUM mmol/L 137 131* 134* POTASSIUM mmol/L 3.6 4.2 4.2 CHLORIDE mmol/L 96* 96* 101 BICARB mmol/L BUN mg/dL 8 10 7* CREATININE mg/dL 0.54* 0.56* 0.40* EGFR mL/min/1.73 m2 93 92 100 GLUCOSE mg/dL 96 106* 109* CALCIUM mg/dL 9.4 9.2 9.0 Results from last 7 days Lab Units 12/19/22 1221 03/24/23 1251 ALT U/L 43* 61* AST U/L 24 34 ALK PHOS U/L 106 103 BILIRUBIN TOTAL mg/dL 0.7 0.7 Results from last 7 days Lab Units 12/20/22 0750 12/18/22 0448 INR 1.1 1.1 Surgical Oncology Daily Progress Note Patient Name: Merlyn Perez MR #: [id number] : 1940 Assessment and Plan: 82 y.o. female w/ PMHx of HTN, HLD, anxiety/depression, asthma, GERD, recent admission for CVA (11/27/2022) on Plavix, w/ hx of R frontal, parietal, and L temporal infarctions, h/o CCY who presented to [facility] on 12/17/2022 as transfer from [facility] with RLQ back pain, concern for mass. 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 Regional lymph nodes pattern is concerning as well - plan for laparoscopic R colectomy on 12/23 - preop labs, abx, consent DVT ppx Lovenox GI ppx N/A Weekdays 5a-5p [phone] Nights & Weekends [phone] Subjective: NAEO. Slept more, gabapentin helpful with pain but too drowsy, will decrease dose Objective: Vital Signs BP (!) 153/76 Pulse 84 Temp 98.7 F (37.1 C) (Oral) Resp 16 Ht 5' 3 Wt 68 kg (150 lb) SpO2 96% BMI 26.57 kg/m Constitutional Resting, NAD Head Normocephalic, atraumatic Ears Grossly normal hearing, auricles without deformity Eyes EOMI, vision grossly intact Neck Trachea midline, soft Cardiovascular Hemodynamically stable, palpable pulses throughout Chest Non-labored breathing, equal chest rise Abdomen Soft,mild diffuse TTP; mildly distended; no peritoneal signs Extremities Motor and sensory intact in all 4 extremities, no obvious deformity Skin Warm, dry, intact Neurologic: No focal deficits Laboratory Studies: Recent laboratory studies reviewed CBC: Results from last 7 days Lab Units 12/20/22 0749 WBC K/mcL 8.73 HGB g/dL 12.8 HCT % 38.9 PLT K/mcL 256 Results from last 7 days Lab Units 12/20/22 0749 12/19/22 1221 12/18/22 0448 HGB g/dL 12.8 12.4 11.8* Chem: Results from last 7 days Lab Units 12/20/22 0750 12/19/22 1221 SODIUM mmol/L 137 131* POTASSIUM mmol/L 3.6 4.2 CHLORIDE mmol/L 96* 96* BUN mg/dL 8 10 CREATININE mg/dL 0.54* 0.56* CALCIUM mg/dL 9.4 9.2 TOTAL PROTEIN g/dL -- 7.0 ALK PHOS U/L -- 106 ALT U/L -- 43* AST U/L -- 24 GLUCOSE mg/dL 96 106* Results from last 7 days Lab Units 12/20/22 0750 12/19/22 1221 12/18/22 0448 CREATININE mg/dL 0.54* 0.56* 0.40* LFT's: Results from last 7 days Lab Units 12/19/22 1221 12/17/22 1251 ALK PHOS U/L 106 103 BILIRUBIN TOTAL mg/dL 0.7 0.7 BILIRUBIN DIRECT mg/dL -- 0.3 TOTAL PROTEIN g/dL 7.0 6.9 AST U/L 24 34 ALT U/L 43* 61* Diagnostic Imaging: Recent diagnostic imaging/reports reviewed Carmen Lu MD PGY5 12/22/2022 6:49 AM Pager: [phone] Associated attestation - Kell Deras MD - 12/22/2022 9:03 PM EDT I have reviewed the notes, assessments, and/or procedures performed by resident/KRISTEN, I concur with her/his documentation with the following additions/addendums: I have personally seen and examined the patient on rounds. Patient tolerating prep thus far. Still with some bloating and pain. Abd softly distended, mildly tender in the RLQ. Discussed risk and benefits of surgery again including bleeding, infection, anastomotic leak, pulmonary/cardiac complications. Proceed with lap right colectomy and terminal ileal resection. Complete bowel prep today. 55 minutes spent on this encounter with >50% of that time spent on consultation and coordination of care. [employer] Inpatient Progress Note 12/21/2022 Merlyn Perez 1940 [id number] Assessment/Plan: Merlyn Perez is a 82 y.o. 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 CTA C/A/P 12/17/22 with no PE, enlarged mediastinal LN with 5mm pulmonary nodule RLL and RLQ 1.7 x 1.6cm mass abbutting the distal small bowel. She was transferred to [facility] 12/17/2022 for surgical oncology and GI assessment. RLQ Abdominal Mass: Shown on imaging. Could be contributing to abdominal pain. Colonoscopy 12/20/20[address] non-[address] CT A&P 12/21 with findings concerning for malignancy in RLQ. GI and SurgOnc following. Pain control, monitor respiratory status with IV narcotics. Epigastric pain: Rule out GERD/gastritis/duodenitis. Continued PPI. EGD 12/20/2022 negative. GI following. Constipation: Stool burden shown on imaging. Improved with bowel regimen. Acute metabolic encephalopathy: Likely related to baseline cognitive impairment, hospital-acquired delirium. Reported mood changes with Dilaudid. . Uses narcotics sparingly. EKG pending. If QTc stable, can use Seroquel and Haldol if needed. Enlarged Mediastinal Lymph Nodes: Noted on report at [facility], of unclear etiology. Concerning in setting of new mass and with 5mm RLL lung nodule as well. Follow-up CT in 3 months. Pul[address] followed. CT A&P 12/21 with 14mm LLL nodule along with several non-specific nodules. Outpatient follow-up. Recent CVA: Residual left facial droop, mild dysarthria. Hospitalized 11/27/22 for acute b/l CVA. Resumed aspirin and Plavix when okay with surgery. Continued statin. Neurology followed. HTN: Continued Lasix, atenolol and lisinopril. Reports gastritis with hydralazine. Continue labetalol as needed with parameters. Discharge medication based on BP trend. Hyperglycemia: Recent A1c 5.5% 11/27/22. Likely reactive. Code status: FULL DVT Prophylaxis: Lovenox subcutaneous ppx Current living situation: Home Expected Disposition: Home Estimated discharge date: TBD based on GI and surgery recs and pain control. Subjective: Patient is new to me today. Today I personally did a review of prior medical records and have summarized my findings in my assessment and plan as noted above. Today I also reviewed recent labs, diagnostics, vitals including pulse ox, and garden consultant/other provider recommendations. VSS. Endoscopy yesterday unremarkable. CT A&P today with RLQ findings concerning for malignancy, 14mm LLL nodule. Patient still with pain and feels like she may be having a back spasms. Added lidocaine patch and oxycodone. Messaged Surgery team to discuss further plans, awaiting response. Physical Exam: BP (!) 169/76 Pulse 82 Temp 98.6 F (37 C) (Oral) Resp 14 Ht 5' 3 Wt 68 kg (150 lb) SpO2 93% BMI 26.57 kg/m General: NAD. Eyes: EOMI. ENT: Neck supple. Cardiovascular: Regular rate. Respiratory: Clear to auscultation. Gastrointestinal: Soft, non distended, RLQ tenderness. Genitourinary: No suprapubic tenderness. Musculoskeletal: No edema. Skin: Warm, dry. Neuro: Alert. Psych: Mood appropriate. Current Medications: acetaminophen 975 mg Oral Q8H atenoloL 75 mg Oral Daily bisacodyL 10 mg Rectal Daily calcium carbonate 500 mg Oral TID AC enoxaparin (LOVENOX) injection 40 mg Subcutaneous Daily furosemide 20 mg Oral Daily gabapentin 300 mg Oral Q8H JOSH lisinopriL 40 mg Oral Daily pantoprazole 40 mg Oral Daily rosuvastatin 20 mg Oral Daily sodium chloride (PF) 5 mL Intravenous Q8H JOSH Labs, Imaging and Studies reviewed: Results from last 7 days Lab Units 12/20/22 0749 12/19/22 1221 12/18/22 0448 WBC K/mcL 8.73 9.95 5.48 HGB g/dL 12.8 12.4 11.8* HCT % 38.9 36.9 35.1* PLT K/mcL 256 247 194 Results from last 7 days Lab Units 12/20/22 0750 12/19/22 1221 12/18/22 0448 SODIUM mmol/L 137 131* 134* POTASSIUM mmol/L 3.6 4.2 4.2 CHLORIDE mmol/L 96* 96* 101 BICARB mmol/L BUN mg/dL 8 10 7* CREATININE mg/dL 0.54* 0.56* 0.40* EGFR mL/min/1.73 m2 93 92 100 GLUCOSE mg/dL 96 106* 109* CALCIUM mg/dL 9.4 9.2 9.0 Results from last 7 days Lab Units 12/19/22 1221 12/17/22 1251 ALT U/L 43* 61* AST U/L 24 34 ALK PHOS U/L 106 103 BILIRUBIN TOTAL mg/dL 0.7 0.7 Results from last 7 days Lab Units 12/20/22 0750 12/18/22 0448 INR 1.1 1.1 Surgical Oncology Daily Progress Note Patient Name: Merlyn Perez MR #: [id number] : 1940 Assessment and Plan: 82 y.o. female w/ PMHx of HTN, HLD, anxiety/depression, asthma, GERD, recent admission for CVA (11/27/2022) on Plavix, w/ hx of R frontal, parietal, and L temporal infarctions, h/o CCY who presented to [facility] on 12/17/2022 as transfer from [facility] with RLQ back pain, concern for mass. 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 Regional lymph nodes pattern is concerning as well DVT ppx Lovenox GI ppx N/A Weekdays 5a-5p [phone] Nights & Weekends [phone] Subjective: Did a little better last night with mentation. Slept some Objective: Vital Signs BP (!) 169/76 Pulse 82 Temp 98.6 F (37 C) (Oral) Resp 14 Ht 5' 3 Wt 68 kg (150 lb) SpO2 93% BMI 26.57 kg/m Constitutional Resting, NAD Head Normocephalic, atraumatic Ears Grossly normal hearing, auricles without deformity Eyes EOMI, vision grossly intact Neck Trachea midline, soft Cardiovascular Hemodynamically stable, palpable pulses throughout Chest Non-labored breathing, equal chest rise Abdomen Soft,mild diffuse TTP; mildly distended; no peritoneal signs Extremities Motor and sensory intact in all 4 extremities, no obvious deformity Skin Warm, dry, intact Neurologic: No focal deficits Laboratory Studies: Recent laboratory studies reviewed CBC: Results from last 7 days Lab Units 12/20/22 0749 WBC K/mcL 8.73 HGB g/dL 12.8 HCT % 38.9 PLT K/mcL 256 Results from last 7 days Lab Units 12/20/22 0749 12/19/22 1221 12/18/22 0448 HGB g/dL 12.8 12.4 11.8* Chem: Results from last 7 days Lab Units 12/20/22 0750 12/19/22 1221 SODIUM mmol/L 137 131* POTASSIUM mmol/L 3.6 4.2 CHLORIDE mmol/L 96* 96* BUN mg/dL 8 10 CREATININE mg/dL 0.54* 0.56* CALCIUM mg/dL 9.4 9.2 TOTAL PROTEIN g/dL -- 7.0 ALK PHOS U/L -- 106 ALT U/L -- 43* AST U/L -- 24 GLUCOSE mg/dL 96 106* Results from last 7 days Lab Units 12/20/22 0750 12/19/22 1221 12/18/22 0448 CREATININE mg/dL 0.54* 0.56* 0.40* LFT's: Results from last 7 days Lab Units 12/19/22 1221 12/17/22 1251 ALK PHOS U/L 106 103 BILIRUBIN TOTAL mg/dL 0.7 0.7 BILIRUBIN DIRECT mg/dL -- 0.3 TOTAL PROTEIN g/dL 7.0 6.9 AST U/L 24 34 ALT U/L 43* 61* Diagnostic Imaging: Recent diagnostic imaging/reports reviewed Carmen Lu MD PGY5 12/21/2022 7:00 AM Pager: [phone] Associated attestation - Kell Deras MD - 12/21/2022 5:22 PM EDT I have reviewed the notes, assessments, and/or procedures performed by resident/KRISTEN, I concur with her/his documentation with the following additions/addendums: I have personally seen and examined the patient on rounds. Patient continues complain about abdominal bloating and nausea with p.o. intake. Having lower abdominal and lower back pain. Abdomen is soft but distended, tympanic on exam. No peritoneal signs Had a long discussion with the patient and her daughter today. We reviewed her CT scan as well as her colonoscopy results. There was evidence of narrowing in the terminal ileum on colonoscopy on CT scan with oral contrast today she had evidence of contrast being held up in the terminal ileum just proximal to the ileocecal valve at the site of the [place]-ileal mass. Concern for ongoing partial bowel obstruction as result of this. She does have contrast progression passed this on follow-up KUB. I explained that she likely has a partial small bowel obstruction resulting in her current symptoms of bloating and abdominal pain. We discussed that unfortunately been unable to obtain a tissue diagnosis and it might require surgery to do so. Reviewed that surgery require laparoscopic right colectomy with terminal ileal resection. Reviewed risk and benefits of surgery including bleeding, infection, cardiac as well as pulmonary complications. Discussed the risk for anastomotic leak. Reviewed also possible neurologic complications related to her recent TIA. Will perform slow bowel prep with Suprep in order to clear the remainder of her colon out given persistent stool on colonoscopy. We will request preoperative restratification by the medicine team. Tentatively planning for surgery . Requested the patient and her daughter have goals of care discussion with each other and review what she would like moving forward and we will have a final discussion tomorrow and make a decision about surgical intervention or not. 35 minutes was spent on this encounter with greater than 50% of the time spent in consultation and coordination of care with the patient and her daughter. PULMONARY/CRITICAL CARE PROGRESS NOTE Assessment/Plan Principal Problem: Colonic mass Active Problems: Abdominal pain RLL lung nodule Mild AP window mediastinal LAD Abdominal mass Recent CVA -Agree with plans of repeat CT chest in 3 months to follow the lung nodule and mediastinal lymphadenopathy. These findings are likely to be benign and unrelated to the abdominal issue. I reiterated that plan with patient and daughter at bedside today. -Work-up of abdominal mass ongoing Pulmonary will sign off, please call if any questions arise going forward. Trenton Porter MD [facility] Pulmonary Critical Care Physicians Subjective: Breathing comfortably Medications reviewed in the chart. Objective: Vital signs in last 24 hours: Temp: [96.8 F (36 C)-98.9 F (37.2 C)] 98.9 F (37.2 C) Heart Rate: [73-99] 99 Resp: [14-24] 24 BP: (167-206)/(68-95) 175/95 Intake/Output last 3 shifts: No intake/output data recorded. Intake/Output this shift: No intake/output data recorded. Physical Exam: GEN: NAD EYES: Sclera anicteric HEENT: MMM NECK: Supple LUNGS: CTA Bilat HEART: NL s1/s2 ABD: Soft EXT: No LE Edema bilat, no deformities noted SKIN: Warm to touch, no visible rashes PSYCH: Awake, alert and oriented x 3 Laboratory Data: Labs reviewed in chart. Lab Results Component Value Date GLUCOSE 96 12/20/2022 CALCIUM 9.4 12/20/2022 NA 137 12/20/2022 K 3.6 12/20/2022 CL 96 (L) 12/20/2022 BUN 8 12/20/2022 CREATININE 0.54 (L) 12/20/2022 Lab Results Component Value Date WBC 8.73 12/20/2022 HGB 12.8 12/20/2022 HCT 38.9 12/20/2022 MCV 90.7 12/20/2022 PLT 256 12/20/2022 RBC 4.29 12/20/2022 Radiology: CT chest - I personally reviewed patient's CT chest and find calcified granuloma in BRENDAN; small RLL nodule; mild AP LAD [employer] Inpatient Progress Note 12/20/2022 Merlyn Perez 1940 [id number] Assessment/Plan: Merlyn Perez is a 82 y.o. 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 CTA C/A/P 12/17/22 with no PE, enlarged mediastinal LN with 5mm pulmonary nodule RLL and RLQ 1.7 x 1.6cm mass abbutting the distal small bowel. She was transferred to [facility] 12/17/2022 for surgical oncology and GI assessment. RLQ Abdominal Mass: Shown on imaging. Could be contributing to abdominal pain. Colonoscopy pending 12/20/2022. GI following. Epigastric pain: Rule out GERD/gastritis/duodenitis. Continued PPI. EGD pending 12/20/2022. GI following. Constipation: Stool burden shown on imaging. Improved with bowel regimen. Acute metabolic encephalopathy: Likely related to baseline cognitive impairment, hospital-acquired delirium. Reported mood changes with Dilaudid. . Uses narcotics sparingly. EKG pending. If QTc stable, can use Seroquel and Haldol if needed. Enlarged Mediastinal Lymph Nodes: Noted on report at [facility], of unclear etiology. Concerning in setting of new mass and with 5mm RLL lung nodule as well. Follow-up CT in 3 months. Based on the evaluation of colonic mass, can recommend further. Pulmonary followed Recent CVA: Residual left facial droop, mild dysarthria. Hospitalized 11/27/22 for acute b/l CVA. Resumed aspirin and Plavix when okay with surgery. Continued statin. Neurology followed. HTN: Continued Lasix, atenolol and lisinopril. Reports gastritis with hydralazine. Continue labetalol as needed with parameters. Discharge medication based on BP trend. Hyperglycemia: Recent A1c 5.5% 11/27/22. Likely reactive. Osteopenia and degenerative changes: Shown on x-rays by lumbar and sacral. PT OT consulted. Code status: FULL DVT Prophylaxis: Lovenox subcutaneous ppx Current living situation: Home Expected Disposition: Home Estimated discharge date: TBD based on GI and surgery recs and pain control Subjective: Seen patient at bedside. Sleeping comfortably. Morphine helping with the pain. Dilaudid yesterday made her confused and combative. Pain significantly improved after multiple BMs due to the prep. Pending EGD and colonoscopy today. Physical Exam: BP (!) 167/76 Pulse 99 Temp 97.9 F (36.6 C) (Oral) Resp 17 Ht 5' 3 Wt 68 kg (150 lb) SpO2 92% BMI 26.57 kg/m General: NAD Eyes: EOMI ENT: neck supple Cardiovascular: Regular rate. Respiratory: Clear to auscultation Gastrointestinal: Soft, tender diffusely, no signs of peritonitis. Genitourinary: no suprapubic tenderness Musculoskeletal: No edema. Tenderness to palpation of thoracic and lumbar spine. Skin: warm, dry Neuro: Alert. Left facial droop, mild dysarthria-chronic Psych: Mood appropriate. Current Medications: acetaminophen 975 mg Oral Q8H atenoloL 75 mg Oral Daily bisacodyL 10 mg Rectal Daily calcium carbonate 500 mg Oral TID AC enoxaparin (LOVENOX) injection 40 mg Subcutaneous Daily furosemide 20 mg Oral Daily lisinopriL 40 mg Oral Daily pantoprazole 40 mg Oral Daily rosuvastatin 20 mg Oral Daily sodium chloride (PF) 5 mL Intravenous Q8H JOSH Labs, Imaging and Studies reviewed: Results from last 7 days Lab Units 12/20/22 0749 12/19/22 1221 12/18/22 0448 WBC K/mcL 8.73 9.95 5.48 HGB g/dL 12.8 12.4 11.8* HCT % 38.9 36.9 35.1* PLT K/mcL 256 247 194 Results from last 7 days Lab Units 12/20/22 0750 12/19/22 1221 12/18/22 0448 SODIUM mmol/L 137 131* 134* POTASSIUM mmol/L 3.6 4.2 4.2 CHLORIDE mmol/L 96* 96* 101 BICARB mmol/L BUN mg/dL 8 10 7* CREATININE mg/dL 0.54* 0.56* 0.40* EGFR mL/min/1.73 m2 93 92 100 GLUCOSE mg/dL 96 106* 109* CALCIUM mg/dL 9.4 9.2 9.0 Results from last 7 days Lab Units 12/19/22 1221 12/17/22 1251 ALT U/L 43* 61* AST U/L 24 34 ALK PHOS U/L 106 103 BILIRUBIN TOTAL mg/dL 0.7 0.7 Results from last 7 days Lab Units 12/20/22 0750 12/18/22 0448 INR 1.1 1.1 Surgical Oncology Daily Progress Note Patient Name: Merlyn Perez MR #: [id number] : 1940 Assessment and Plan: 82 y.o. female w/ PMHx of HTN, HLD, anxiety/depression, asthma, GERD, recent admission for CVA (11/27/2022) on Plavix, w/ hx of R frontal, parietal, and L temporal infarctions, h/o CCY who presented to [facility] on 12/17/2022 as transfer from [facility] with RLQ back pain, concern for mass. 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 Did tolerate bowel prep Objective: Vital Signs BP (!) 185/68 Pulse 80 Temp 98.1 F (36.7 C) (Oral) Resp 14 Ht 5' 3 Wt 68 kg (150 lb) SpO2 95% BMI 26.57 kg/m Constitutional Resting, NAD Head Normocephalic, atraumatic Ears Grossly normal hearing, auricles without deformity Eyes EOMI, vision grossly intact Neck Trachea midline, soft Cardiovascular Hemodynamically stable, palpable pulses throughout Chest Non-labored breathing, equal chest rise Abdomen Soft,mild diffuse TTP; mildly distended; no peritoneal signs Extremities Motor and sensory intact in all 4 extremities, no obvious deformity Skin Warm, dry, intact Neurologic: No focal deficits Laboratory Studies: Recent laboratory studies reviewed CBC: Results from last 7 days Lab Units 12/19/22 1221 WBC K/mcL 9.95 HGB g/dL 12.4 HCT % 36.9 PLT K/mcL 247 Results from last 7 days Lab Units 12/19/22 1221 12/18/22 0448 12/17/22 2121 HGB g/dL 12.4 11.8* 11.7* Chem: Results from last 7 days Lab Units 12/19/22 1221 SODIUM mmol/L 131* POTASSIUM mmol/L 4.2 CHLORIDE mmol/L 96* BUN mg/dL 10 CREATININE mg/dL 0.56* CALCIUM mg/dL 9.2 TOTAL PROTEIN g/dL 7.0 ALK PHOS U/L 106 ALT U/L 43* AST U/L 24 GLUCOSE mg/dL 106* Results from last 7 days Lab Units 12/19/22 1221 12/18/22 0448 12/17/22 1251 CREATININE mg/dL 0.56* 0.40* 0.56* LFT's: Results from last 7 days Lab Units 12/19/22 1221 12/17/22 1251 ALK PHOS U/L 106 103 BILIRUBIN TOTAL mg/dL 0.7 0.7 BILIRUBIN DIRECT mg/dL -- 0.3 TOTAL PROTEIN g/dL 7.0 6.9 AST U/L 24 34 ALT U/L 43* 61* Diagnostic Imaging: Recent diagnostic imaging/reports reviewed Carmen Lu MD PGY5 12/20/2022 7:23 AM Pager: [phone] Associated attestation - Kell Deras MD - 12/20/2022 4:27 PM EDT I have reviewed the notes, assessments, and/or procedures performed by resident/KRISTEN, I concur with her/his documentation with the following additions/addendums: I have personally seen and examined the patient on rounds. No acute issues. GI procedures today. F/u after to discuss results. 82 y.o. 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 GI consulted due to abnormal imaging c/f mass near terminal ileum --early satiety, nausea, reflux and epigastric discomfort for the past few weeks --also w/ changes in bowel habits between constipation and diarrhea --CT abd/pelvis w/ IVC (12/16/2022): RLQ mass in distal small bowel w/ possible trace blood in lumen --no obvious signs of GI bleeding --hg stable at: 12.4; no leukocytosis --lactate: normal --on Plavix: last dose 12/17 --ok for ASA --planned for bowel prep today 12/19 --afebrile; VSS Recommendations/plans: 1) Clear liquid diet. GoLytely bowel prep. NPO except bowel prep after midnight. Planned for EGD and Colonoscopy on 12/20 2) Check CBC, BMP and PT/INR in AM 12/20 Pao Serrano CNP [facility] Inpatient Progress Note 12/19/2022 Merlyn Perez 1940 [id number] Assessment/Plan: Merlyn Perez is a 82 y.o. 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 CTA C/A/P 12/17/22 with no PE, enlarged mediastinal LN with 5mm pulmonary nodule RLL and RLQ 1.7 x 1.6cm mass abbutting the distal small bowel. She was transferred to [facility] 12/17/2022 for surgical oncology and GI assessment. RLQ Abdominal Mass: Shown on imaging. Could be contributing to abdominal pain. Colonoscopy pending 12/20/2022. GI following. Epigastric pain: Rule out GERD/gastritis/duodenitis. Continued PPI. EGD pending 12/20/2022. GI following. Constipation: Stool burden shown on imaging. Continued bowel regimen. Enlarged Mediastinal Lymph Nodes: Noted on report at [facility], of unclear etiology. Concerning in setting of new mass and with 5mm RLL lung nodule as well. Follow-up CT in 3 months. Based on the evaluation of colonic mass, can recommend further. Pulmonary followed Recent CVA: Residual left facial droop, mild dysarthria. Hospitalized 11/27/22 for acute b/l CVA. Resumed aspirin and Plavix when okay with surgery. Continued statin. Neurology followed. HTN: Continued Lasix, atenolol and lisinopril. Reports gastritis with hydralazine. Continue labetalol as needed with parameters. Discharge medication based on BP trend. Hyperglycemia: Recent A1c 5.5% 11/27/22. Likely reactive. Osteopenia and degenerative changes: Shown on x-rays by lumbar and sacral. PT OT consulted. Code status: FULL DVT Prophylaxis: Lovenox subcutaneous ppx Current living situation: Home Expected Disposition: Home Estimated discharge date: TBD Subjective: Seen patient at bedside. Complaining of abdominal pain, radiating to the back side. No aggravating or relieving factors. Morphine is not helping as much. UA, renal ultrasound negative. X-ray spine thoracic and lumbar with osteopenia and degenerative changes. No fractures. Morphine changed to Dilaudid. Await response. EGD/colonoscopy tomorrow. BP elevated. On medications. May be exacerbated due to pain. Abdomen not distended or tense. KUB yesterday did not show any ileus/obstruction. Showed stool burden. On bowel regimen. Ready to start prep for colonoscopy. Physical Exam: BP (!) 160/91 Pulse 86 Temp 98.1 F (36.7 C) (Oral) Resp 16 Ht 5' 3 Wt 68 kg (150 lb) SpO2 97% BMI 26.57 kg/m General: NAD Eyes: EOMI ENT: neck supple Cardiovascular: Regular rate. Respiratory: Clear to auscultation Gastrointestinal: Soft, tender diffusely, no signs of peritonitis. Genitourinary: no suprapubic tenderness Musculoskeletal: No edema. Tenderness to palpation of thoracic and lumbar spine. Skin: warm, dry Neuro: Alert. Left facial droop, mild dysarthria-chronic Psych: Mood appropriate. Current Medications: acetaminophen 975 mg Oral Q8H atenoloL 75 mg Oral Daily bisacodyL 10 mg Rectal Daily calcium carbonate 500 mg Oral TID AC enoxaparin (LOVENOX) injection 40 mg Subcutaneous Daily furosemide 20 mg Oral Daily lisinopriL 40 mg Oral Daily pantoprazole 40 mg Oral Daily rosuvastatin 20 mg Oral Daily sodium chloride (PF) 5 mL Intravenous Q8H JOSH Labs, Imaging and Studies reviewed: Results from last 7 days Lab Units 12/19/22 1221 12/18/22 0448 12/17/22 2121 WBC K/mcL 9.95 5.48 5.04 HGB g/dL 12.4 11.8* 11.7* HCT % 36.9 35.1* 35.1* PLT K/mcL 247 194 175 Results from last 7 days Lab Units 12/19/22 1221 12/18/22 0448 12/17/22 1251 SODIUM mmol/L 131* 134* 139 POTASSIUM mmol/L 4.2 4.2 2.9* CHLORIDE mmol/L 96* 101 101 BICARB mmol/L BUN mg/dL 10 7* 11 CREATININE mg/dL 0.56* 0.40* 0.56* EGFR mL/min/1.73 m2 92 100 92 GLUCOSE mg/dL 106* 109* 104* CALCIUM mg/dL 9.2 9.0 -- Results from last 7 days Lab Units 12/19/22 1221 12/17/22 1251 ALT U/L 43* 61* AST U/L 24 34 ALK PHOS U/L 106 103 BILIRUBIN TOTAL mg/dL 0.7 0.7 Results from last 7 days Lab Units 12/18/22 0448 INR 1.1 Surgical Oncology Daily Progress Note Patient Name: Merlyn Perez MR #: [id number] : 1940 Assessment and Plan: 82 y.o. female w/ PMHx of HTN, HLD, anxiety/depression, asthma, GERD, recent admission for CVA (11/27/2022) on Plavix, w/ hx of R frontal, parietal, and L temporal infarctions, h/o CCY who presented to [facility] on 12/17/2022 as transfer from [facility] with RLQ back pain, concern for mass. 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 Resting comfortably this AM Objective: Vital Signs BP (!) 182/88 Pulse 84 Temp 98.1 F (36.7 C) (Oral) Resp 16 Ht 5' 3 Wt 68 kg (150 lb) SpO2 94% BMI 26.57 kg/m Constitutional Resting, NAD Head Normocephalic, atraumatic Ears Grossly normal hearing, auricles without deformity Eyes EOMI, vision grossly intact Neck Trachea midline, soft Cardiovascular Hemodynamically stable, palpable pulses throughout Chest Non-labored breathing, equal chest rise Abdomen Soft,mild diffuse TTP; mildly distended; no peritoneal signs Extremities Motor and sensory intact in all 4 extremities, no obvious deformity Skin Warm, dry, intact Neurologic: No focal deficits Laboratory Studies: Recent laboratory studies reviewed CBC: Results from last 7 days Lab Units 12/18/22 0448 WBC K/mcL 5.48 HGB g/dL 11.8* HCT % 35.1* PLT K/mcL 194 Results from last 7 days Lab Units 12/18/22 0448 12/17/22 2121 12/17/22 1250 HGB g/dL 11.8* 11.7* 11.9* Chem: Results from last 7 days Lab Units 12/18/22 0448 12/17/22 1251 SODIUM mmol/L 134* 139 POTASSIUM mmol/L 4.2 2.9* CHLORIDE mmol/L 101 101 BUN mg/dL 7* 11 CREATININE mg/dL 0.40* 0.56* CALCIUM mg/dL 9.0 -- TOTAL PROTEIN g/dL -- 6.9 ALK PHOS U/L -- 103 ALT U/L -- 61* AST U/L -- 34 GLUCOSE mg/dL 109* 104* Results from last 7 days Lab Units 12/18/22 0448 12/17/22 1251 CREATININE mg/dL 0.40* 0.56* LFT's: Results from last 7 days Lab Units 12/17/22 1251 ALK PHOS U/L 103 BILIRUBIN TOTAL mg/dL 0.7 BILIRUBIN DIRECT mg/dL 0.3 TOTAL PROTEIN g/dL 6.9 AST U/L 34 ALT U/L 61* Diagnostic Imaging: Recent diagnostic imaging/reports reviewed Carmen Lu MD PGY5 12/19/2022 7:36 AM Pager: [phone] Associated attestation - Kell Deras MD - 12/19/2022 12:58 PM EDT I have reviewed the notes, assessments, and/or procedures performed by resident/KRISTEN, I concur with her/his documentation with the following additions/addendums: I have personally seen and examined the patient on rounds. Continue bowel prep. Plan for colonoscopy tomorrow. Further planning and surgical recs pending endoscopic evaluation. Spiritual Care Progress Note Completed by: Isaac Delatorre Person(s) Present During this Visit: Patient, Other (Please Specify) (family memebr) Time Spent in Direct Patient Care: 15 Narrative: Chief Lifestyle Officer attempted to visit. Explored from a person( possible family member) at the bedside pt was asleep. Chief Lifestyle Officer let the person know about software sales representative availability as needed. She thanked software sales representative. Pastoral Care team will remain available to support patient and family PRN. Patients Response to Pastoral Care: Timing of Visit Not Optimal. Visit Rescheduled Planning for Future Visits: PRN Patient's Spiritual Needs Assessment Sources of Connection Beliefs and Practices Image of the Divine Role of Divine in Patient's Illness Spiritual Wellness - Activities and Resources Grief Assessment Expressed / Stated Feelings Attitude Towards Own Illness Understanding of Patients Coping Mechanisms Spiritual Diagnosis Facilitated Interventions Spiritual and Emotional Outcomes Resources Provided Bereavement Resources Spiritual Plan of Care Patient's Sikhism Needs Assessment Sikhism Connection Sikhism Home Rastafari Affiliation Local Jehovah'S Witness Name Sikhism Resources Sikhism Rituals Sikhism Materials Provided Expressed Outcomes Family / Caregiver Needs Assessment Relationship to Patient Affect at Time of Visit Emotions Expressed During Visit Expressed Concerns Regarding Illness Sources of Hope and Strength Support and Participation in Care Grief Assessment Spiritual Assessment Interventions with Family / Friend Outcomes with Family / Friend SERENITY Reyes, Staff Chief Lifestyle Officer, Pastoral Care [facility] Office: [phone] [facility] Inpatient Progress Note 12/18/2022 Merlyn Perez 1940 [id number] Assessment/Plan: Merlyn Perez is a 82 y.o. 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 CTA C/A/P 12/17/22 with no PE, enlarged mediastinal LN with 5mm pulmonary nodule RLL and RLQ 1.7 x 1.6cm mass abbutting the distal small bowel. She was transferred to [facility] 12/17/2022 for surgical oncology and GI assessment. RLQ Abdominal Mass: Shown on imaging. Could be contributing to abdominal pain. Colonoscopy pending 12/20/2022. GI following. Epigastric pain: Rule out GERD/gastritis/duodenitis. Continued PPI. EGD pending 12/20/2022. GI following. Constipation: Stool burden shown on imaging. Continued bowel regimen. Enlarged Mediastinal Lymph Nodes: Noted on report at [facility], of unclear etiology. Concerning in setting of new mass and with 5mm RLL lung nodule as well. Pulmonology consulted Recent CVA: Residual left facial droop, mild dysarthria. Hospitalized 11/27/22 for acute b/l CVA. Resumed aspirin and Plavix when okay with surgery. Continued statin. Neurology followed. HTN: Continued Lasix, atenolol and lisinopril. Reports gastritis with hydralazine. Continue labetalol as needed with parameters. Discharge medication based on BP trend. Hyperglycemia: Recent A1c 5.5% 11/27/22. Likely reactive. Code status: FULL DVT Prophylaxis: Lovenox subcutaneous ppx Current living situation: Home Expected Disposition: Home Estimated discharge date: TBD Subjective: Seen patient at bedside. Doing well. Discussed plan of care. EGD and colonoscopy 12/20/2022. Blood pressure significantly elevated. Does not appear to be in pain. Physical Exam: BP (!) 191/89 (BP Location: Right arm, Patient Position: Lying) Pulse 84 Temp 97.8 F (36.6 C) (Oral) Resp 14 Ht 5' 3 Wt 68 kg (150 lb) SpO2 97% BMI 26.57 kg/m General: NAD Eyes: EOMI ENT: neck supple Cardiovascular: Regular rate. Respiratory: Clear to auscultation Gastrointestinal: Soft, non tender Genitourinary: no suprapubic tenderness Musculoskeletal: No edema. Skin: warm, dry Neuro: Alert. Left facial droop, mild dysarthria Psych: Mood appropriate. Current Medications: acetaminophen 975 mg Oral Q8H atenoloL 75 mg Oral Daily bisacodyL 10 mg Rectal Daily calcium carbonate 500 mg Oral TID AC docusate sodium 100 mg Oral BID [START ON 12/19/2022] enoxaparin (LOVENOX) injection 40 mg Subcutaneous Daily furosemide 20 mg Oral Daily lisinopriL 40 mg Oral Daily pantoprazole 40 mg Oral Daily [START ON 12/19/2022] polyethylene glycol 4,000 mL Oral Once rosuvastatin 20 mg Oral Daily sodium chloride (PF) 5 mL Intravenous Q8H JOSH Labs, Imaging and Studies reviewed: Results from last 7 days Lab Units 12/18/22 0448 12/17/22 2121 12/17/22 1250 WBC K/mcL 5.48 5.04 5.25 HGB g/dL 11.8* 11.7* 11.9* HCT % 35.1* 35.1* 34.3* PLT K/mcL 194 175 165 Results from last 7 days Lab Units 12/18/22 0448 12/17/22 1251 SODIUM mmol/L 134* 139 POTASSIUM mmol/L 4.2 2.9* CHLORIDE mmol/L 101 101 BICARB mmol/L 23 29 BUN mg/dL 7* 11 CREATININE mg/dL 0.40* 0.56* EGFR mL/min/1.73 m2 100 92 GLUCOSE mg/dL 109* 104* CALCIUM mg/dL 9.0 -- Results from last 7 days Lab Units 12/17/22 1251 ALT U/L 61* AST U/L 34 ALK PHOS U/L 103 BILIRUBIN TOTAL mg/dL 0.7 Results from last 7 days Lab Units 12/18/22 0448 INR 1.1 documented in this encounter [facility] 01-07-2023 Hospital course Narrative [facility] DIS[facility]GE SUMMARY Merlyn Perez Account: [id number] Admitted: 12/17/2022 Discharge Date/Time: 01/07/23 / 11:52 AM Handoff to PCP Routine hospital follow up Continued bowel regimen Clinical Summary Merlyn Perez is a 82 y.o. female with a history of HTN and recent CVA 11/27/22 who presented to [facility] 12/14/22 and again 12/16/22 for recurrent abdominal pain. OSH CT C/A/P 12/17/22 noted RLQ mass and enlarged mediastinal LNs, RLL pulmonary nodule. Transferred to [facility] 12/17/2022 for SurgOnc evaluation. 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 Course complicated with ileus requiring TPN. Neuroendocrine Tumor: Presented as above. C-scope 12/20/[address] non-[address] CT A&P 12/21/22 concerned for RLQ malignancy s/p right colectomy with terminal ileum resection 12/23/[address] Deras. 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 Will follow with surg onc outpatient. Ileus: confirmed on KUB 12/25/22, s/p NGT 12/25 with good output, had to be replaced 12/[address] A&P 12/26 with edematous bowel but no perforation, KUB 12/27 with ileus vs pSBO, CT A/P 12/30/22 with evolving ileus. PICC placed for TPN with improvement in symptoms and TPN stopped 01/05/23. Clinical resolution with BM daily, tolerating full diet at time of discharge. Acute Metabolic Encephalopathy: transient, occurs with patient's narcotic use. Lymphadenopathy: noted on OSH CT C/A/P as mentioned above. Pulmonary followed, follow-up CT in [address] A&P 12/21 with 14mm LLL nodule along with several non-specific nodules. Outpatient follow-up. Recent CVA: with residual right facial droop, mild dysarthria. Hospitalized 11/27/22. Neurology followed, OSH MRI brain reviewed, tiny stroke burden. Restarted DAPT. On regular diet. Discharged back to [facility]. HTN: adjusted medications to Metoprolol, lisinopril Uterine Prolapse: Follows with Dr. Hartley in [place]. PVR unremarkable this admission. Dr. Smiley (uro-nut sorter) declined pessary this admission, ok to follow up at home. Discharge Medications Medication List START taking these medications bisacodyL 10 mg suppository Commonly known as: DULCOLAX Insert 1 (one) suppository (10 mg total) into the rectum daily for 10 days Start: 01/08/23. Start taking on: January 08, 2023 gabapentin 100 MG capsule Commonly known as: NEURONTIN Take 2 (two) capsules (200 mg total) by mouth every 8 (eight) hours (Days supply per fill: 3) . HYDROcodone-acetaminophen 5-325 mg per tablet Commonly known as: NORCO Take 1 (one) tablet by mouth every 4 (four) hours as needed (Days supply per fill: 3) . methocarbamoL 500 MG tablet Commonly known as: ROBAXIN Take 1 (one) tablet (500 mg total) by mouth every 8 (eight) hours for 10 days . metoprolol tartrate 25 MG tablet Commonly known as: LOPRESSOR Take 1 (one) tablet (25 mg total) by mouth 2 (two) times a day . naloxone 4 mg/actuation Watkins Commonly known as: NARCAN Administer 1 spray into one nostril for known or suspected opioid overdose. If patient worsens or does not respond, may repeat in 2-3 minutes. . ondansetron 4 MG disintegrating tablet Commonly known as: ZOFRAN-ODT Dissolve 1 (one) tablet (4 mg total) on top of tongue every 6 (six) hours as needed . simethicone 40 mg/0.6 mL drops Commonly known as: MYLICON Take 1.2 mL (80 mg total) by mouth every 6 (six) hours for 10 days . CONTINUE taking these medications aspirin 81 mg chewable tablet calcium carbonate 200 mg calcium (500 mg) chewable tablet Commonly known as: TUMS clopidogreL 75 mg tablet Commonly known as: PLAVIX furosemide 20 MG tablet Commonly known as: LASIX lisinopriL 20 MG tablet Commonly known as: PRINIVIL,ZESTRIL omeprazole 40 MG capsule Commonly known as: PRILOSEC rosuvastatin 20 mg Cpsp STOP taking these medications amLODIPine 2.5 MG tablet Commonly known as: NORVASC atenoloL 50 MG tablet Commonly known as: TENORMIN Where to Get Your Medications You can get these medications from any pharmacy Bring a paper prescription for each of these medications gabapentin 100 MG capsule HYDROcodone-acetaminophen 5-325 mg per tablet methocarbamoL 500 MG tablet naloxone 4 mg/actuation Watkins Information about where to get these medications is not yet available Ask your nurse or doctor about these medications bisacodyL 10 mg suppository metoprolol tartrate 25 MG tablet ondansetron 4 MG disintegrating tablet simethicone 40 mg/0.6 mL drops Physician(s) Family: Milo Hercules MD, , Address: [address] [place] [address] [address] / [place] [address] Follow Up: Vito Stevenson MD [address] [facility] [address] Follow up [address] chest prior Kevyn Metzger MD [address] [facility] [address] [facility] [address] Schedule an appointment as soon as possible for a visit [address] [place] [address] Additional Information: Patient seen and examined day of discharge. For more information regarding patient's care, including complete radiology reports, please contact [facility] at Patient seen and examined. Eating potatoes and eggs for breakfast without problems, without abd pain. Patient is pleased with progress. Mild pain with eating which is tolerable. Spoke with daughter at bedside who agrees with discharge and is happy about progress. General: Mild distress due to pain. Eyes: EOMI. ENT: Neck supple. Cardiovascular: Regular rate. Respiratory: Clear to auscultation. Gastrointestinal: Soft, generalized tenderness, non-peritoneal. Genitourinary: No suprapubic tenderness. Musculoskeletal: No edema. Skin: Warm, dry. Neuro: Alert. Psych: Mood appropriate. Patient instructions, including activity, were given to the patient/family at discharge. Please see the After Visit Summary in the medical record for details. Time spent on discharge: > 30 minutes Completed by: Magdalena Mann on 01/07/23, 11:52 AM documented in this encounter [facility] 01-07-2023 Consult note Associated Order (s): IP CONSULT TO DIETITIAN Nutrition Care Follow Up: Consult-pt request Pt doing better with diet, eating more of meals per pt and daughter. Dislikes [place] Boost Breeze (order IS for bates flavor). Discussed ONS options for pt moving forward, also briefly discussed low fiber diet; all questions answered at this time. Plan is for discharge this afternoon to [facility]. Shraddha Gomez RD, LD, [facility] Vocera: [phone] Associated Order(s): IP CONSULT TO UROLOGICAL GYNECOLOGY GYNECOLOGY CONSULT NOTE Patient Name: Merlyn Perez MR #: [id number] ASSESSMENT AND PLAN: Complete uterovaginal prolapse Assessment & Plan Merlyn Perez is a 82 y.o. female with consult to gynecology for pelvic floor prolapse. Pelvic organ prolapse, chronic - Cervix to +2 on limited pelvic exam - CT scan with bladder distention, concern for prolapse - No SUSANNAH or evidence of post-renal obstruction - S/p trial of pessary for some time, patient not interested in trying again - Follows with Dr. Milly Hartley in [place], they had discussed surgical management before her current acute illness - PVR pending - Consider Ucx - Appreciate management of acute medical/surgical issues from all other teams Will follow up PVR. If retaining, can discuss again pessary vs temporary james/straight caths. Patient will prefer follow up with Dr. Hartley if planning surgical intervention, if able. Likely would delay surgical intervention if able until her acute issues are resolved. D/w Dr. Smiley SUBJECTIVE: Merlyn Perez is a 82 y.o. female with consult to gynecology for pelvic floor prolapse. 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 She underwent l/s right colectomy, terminal ileum resection, omental flap on 12/23 with surg onc, final pathology resulted as neuroendocrine tumor with 03/22 positive nodes. NG tube remains in place. Continued management from surgery oncology. Of note, she did have a TIA shortly before this admission for which she was taking ASA/plavix, these have not yet been resumed due to surgical management. Today patient reports years long history of pelvic organ prolapse. Initially was mild, then worsened. Was managed with a pessary for some time but the patient did not tolerate this well, and is not interested in trying a pessary again. She follows with Dr. Milly Hartley in [place] for Urology care, it sounds like previous to her TIA they had been discussing surgical management with primary repair vs colpocleisis. Patient is interested in surgical management. She does report some instances of incomplete emptying of her bladder, either sitting on the toilet for some time, or needing to go back to the restroom shortly after leaving. Most often does void a normal amount. No issues with bowel movements or splinting. GYNHx: Menopause around age 51, no bleeding since that time No abnormal pap smears, NILM in 2014 Previously up to date with mammograms, no history of abnormal findings. OBHx: Term x2, no issues Review of Systems Constitutional: Denies fevers/chills, Denies fatigue Eyes: Denies Vision changes Resp: Denies shortness of breath, Denies wheezing, Denies cough Cardio: Denies chest pain, Denies peripheral edema, Denies palpitations Gl: Denies nausea, Denies vomiting, Denies abd pain : Denies dysuria, Denies vaginal bleeding, Denies pelvic pain HISTORY: ObHx: , normal SVDs GynHx: No LMP recorded. Menopausal Denies h/o abnl pap smears Denies h/o STIs PMH: Past Medical History: Diagnosis Date Hypertension Stroke (HCC) PSH: Past Surgical History: Procedure Laterality Date COLECTOMY LAPAROSCOPIC RIGHT N/A 12/23/2022 Procedure: LAPAROSCOPIC RIGHT COLECTOMY; Surgeon: Kell Deras MD; Location: [facility] Main OR; Service: General Surgery COLONOSCOPY N/A 12/20/2022 Procedure: COLONOSCOPY; Surgeon: Storm Byers MD; Location: [facility] Endo; Service: Gastroenterology EGD N/A 12/20/2022 Procedure: ESOPHAGOGASTRODUODENOSCOPY; Surgeon: Storm Byers MD; Location: [facility] Endo; Service: Gastroenterology FamHx: History reviewed. No pertinent family history. Soc Hx: Social History Socioeconomic History Marital status: Tobacco Use Smoking status: Never Passive exposure: Past Smokeless tobacco: Never Vaping Use Vaping status: Never Used Passive vaping exposure: Yes Substance and Sexual Activity Alcohol use: Not Currently Drug use: Never Allergies: Allergies Allergen Reactions Amlodipine Other (See Comments) Swelling Home Medications: Prior to Admission medications Medication Sig Start Date End Date Taking? Authorizing Provider amLODIPine (NORVASC) 2.5 MG tablet Take 1 (one) tablet (2.5 mg total) by mouth daily . 12/15/22 Yes Historical Provider, aspirin 81 mg chewable tablet Chew and Swallow 1 (one) tablet (81 mg total) . 10/22/16 Yes Historical Provider, atenoloL (TENORMIN) 50 MG tablet Take 1.5 (one and a half) tablets (75 mg total) by mouth daily . 11/29/22 Yes Historical Provider, calcium carbonate (TUMS) 200 mg calcium (500 mg) chewable tablet Chew and Swallow 1 (one) tablet (500 mg total) 3 (three) times a day . 11/10/16 Yes Historical Provider, clopidogreL (PLAVIX) 75 mg tablet Take 1 (one) tablet (75 mg total) by mouth daily . 11/29/22 Yes Historical Provider, furosemide (LASIX) 20 MG tablet Take 1 (one) tablet (20 mg total) by mouth daily . 09/23/22 Yes Historical Provider, lisinopriL (PRINIVIL,ZESTRIL) 20 MG tablet Take 1 (one) tablet (20 mg total) by mouth 2 (two) times a day . 11/27/22 Yes Historical Provider, omeprazole (PRILOSEC) 40 MG capsule Take 1 (one) capsule (40 mg total) by mouth daily . 12/16/22 Yes Historical Provider, rosuvastatin 20 mg CpSP Take 1 (one) capsule (20 mg total) by mouth daily . 12/17/22 Yes Historical Provider, OBJECTIVE: Temp: [97.6 F (36.4 C)-99 F (37.2 C)] 97.9 F (36.6 C) Heart Rate: [105-115] 106 Resp: [14-16] 16 BP: (163-183)/(80-94) 166/83 General: alert, well-appearing, no acute distress Neuro: No focal neurologic deficits. Interactive. Appropriate. HEENT: Normocephalic, EOMI. NG in place to ILWS CV: Reg rate. negative peripheral edema. Pulm: Non-labored reg breaths. No accessory muscle use, no resp distress. On room air Abd: Soft, distended, mild TTP. Vulva/: Normal vulva, no lesions noted. With parting of labia, cervix noted to be at +2 from the introitus. Able to be reduced rather easily. Cervix normal appearing without lesions. No evidence of erosion of vaginal mucosa. Exam overall limited due to patient in chair, not wanting full speculum exam, situation not warranting full invasive exam at this time. Psych: Normal Ext: no edema, no erythema Current medications: acetaminophen 1,000 mg Intravenous Q8H enoxaparin (LOVENOX) injection 40 mg Subcutaneous Daily insulin lispro 0-30 Units Subcutaneous Q4H JOSH metoprolol 5 mg Intravenous Q6H JOSH pantoprazole 40 mg Intravenous Daily sodium chloride (PF) 10 mL Intracatheter Q8H JOSH sodium chloride (PF) 5 mL Intravenous Q8H JOSH Labs: Lab Results Component Value Date WBC 5.76 12/30/2022 HGB 10.4 (L) 12/30/2022 HCT 32.7 (L) 12/30/2022 MCV 96.2 12/30/2022 PLT 137 (L) 12/30/2022 RBC 3.40 (L) 12/30/2022 Lab Results Component Value Date GLUCOSE 108 (H) 12/30/2022 CALCIUM 8.3 (L) 12/30/2022 NA 138 12/30/2022 K 4.0 12/30/2022 CL 102 12/30/2022 BUN 8 12/30/2022 CREATININE 0.29 (L) 12/30/2022 Becky Byers DO 12/30/2022 11:29 AM Associated attestation - Sherice, Clarissa Valladares MD - 12/30/2022 3:28 PM EDT As below, the patient and her daughter were interviewed over lunchtime. The below findings were reviewed. At that time she had just voided 400 cc, bladder ultrasound for 350 cc. Her daughter reported that initially she was concerned that perhaps her longstanding prolapse is causing bowel obstruction, was reassured that it does not cause a bowel obstruction, but she does have 3 current risk factors for urinary retention including prolapse, recent stroke, and postsurgical pain. It is difficult in the acute setting here to determine if her currently elevated postvoid residual is from prolapse, neurologic, or pain related. At this time I have asked for repeat postvoid residual, and if it is elevated again I will recommend intermittent straight catheterizations while she is here in the hospital. She prefers to have her long-term follow-up with her provider in [place], records will be sent upon her discharge. Associated Order(s): IP CONSULT TO PAIN TEAM ANCILLARY Date: 12/28/2022 Patient name: Merlyn Perez Date Of : 1940 Admit Date: 12/17/2022 Back pain Assessment & Plan Reason For Hospitalization: ICD-10 M54.9 Merlyn Perez presented 12/17/2022 a 82 y.o. female with a history of HTN and recent CVA 11/27/22 who presented to [facility] 12/14/22 and again 12/16/22 for recurrent abdominal pain. OSH CT C/A/P 12/17/22 noted enlarged mediastinal LNs with 5 mm RLL pulmonary nodule and RLQ 1.7x1.6cm mass abbutting the distal small bowel. Transferred to [facility] 12/17/2022 for SurgOnc evaluation. 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 Course complicated 12/25 with ileus s/p NGT. Assessment: Merlyn reports right low back pain that radiates all the way around her waist that has been present since December 16. She is also reporting stomach bloating. Has had a BM, but not able to pass gas. States she hasn't eaten in 10 days and her electrolytes were off. She was put on IV Potassium and states it caused muscle cramping, so was started on IVPB Robaxin. Daughter feels that pt no longer needs the Robaxin as she is getting nutrition now, but pt states it gave her relief. Will continue to Robaxin for now, which will be expiring in the next 19 hours and will reevaluate need for muscle relaxer. Pt expresses that she does not like opiate pain medications and has concerns about addiction. Had undesirable side effects with IV Dilaudid. Morphine made her itch, but did take the edge off. Using Benadryl with the IV Morphine caused similar side effect as Dilaudid. Lidocaine patch is not helpful and would like to discontinue. Feels that IV Tylenol is helpful as well as Gabapentin, but interested in spreading dose of Gabapentin out as it does cause some drowsiness. Plan: Adjust Morphine 2 mg IV to Q 4 H PRN, caution sedation, use oral opiate first Adjust Oxycodone 5 mg SL to Q 4 H PRN, caution sedation Continue OFIRMEV 1,000 mg IVPB Q 8 H per primary team Continue Robaxin 1 gram IV Q 8 H x 48 hours per primary team Adjust Gabapentin to 100 mg PO TID Discontinued/Completed Therapies Lidocaine patch, pt states not helpful Acute Findings/Imaging/Procedures XR Abdomen AP 12/27/2022 IMPRESSION: 1. Scattered contrast in the colon extending into the rectum. 2. Several gas distended small bowel loops may reflect ileus or partial small bowel obstruction, grossly unchanged. 3. NG tube side port at the level of the diaphragm. This should be advanced at least 3 cm and then be rechecked. CT Abdomen Pelvis With Contrast 12/26/2022 IMPRESSION: 1. Long segment of thick-walled edematous distal small bowel to the ileocolonic anastomosis. This finding is nonspecific at this time, although the possibly of early ischemia should be considered. There is no bowel pneumatosis or signs of bowel perforation. 2. Mildly dilated small bowel proximal to the thickened segment. The oral contrast given is present throughout the small bowel to the anastomosis. 3. Moderate scattered free fluid within the abdomen and pelvis and mild mesenteric edema. Free fluid is water attenuation with the exception of a small amount of layering debris or blood products in the posterior peritoneal cavity of the pelvis. 4. Nasogastric tube tip position within the gastric body. Stomach is nondistended. 5. No acute abnormality of the solid organs. 6. Additional stable nonemergent findings as above. Disposition/Ongoing Plan: TBD Substance Use History: Tobacco Use: Denies EtOH Use: Yes, 1-2 glasses of white wine 3-4 times per month THC/CBD Use: Denies Illicit Substance Use: Denies Obtain/Use Medications not prescribed to you: Denies OARRS Reviewed: None reported Chief Complaint/Reason for Visit: 1. Pulmonary nodule 2. Abdominal pain, unspecified abdominal location 3. Abdominal mass, unspecified abdominal location 4. Colonic mass History of Present Illness: Merlyn Perez is a 82 y.o. y/o female presenting 12/17/2022 who presented to [facility] 12/14/22 and again 12/16/22 for recurrent abdominal pain. OSH CT C/A/P 12/17/22 noted enlarged mediastinal LNs with 5 mm RLL pulmonary nodule and RLQ 1.7x1.6cm mass abbutting the distal small bowel. Transferred to [facility] 12/17/2022 for SurgOnc evaluation. 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 Course complicated 12/25 with ileus s/p NGT. During rounding visit 12/28/2022 Merlyn was initially in the bathroom with the assistance of her daughter, Nina. Pt ambulated to the chair. She is awake, alert, oriented and in NAD. Abdomen is distended.She is reporting right low back pain that radiates all the way around her waist. She prefers not to use opiate pain medications due to side effects and concern for addiction. Gabapentin has been helpful, but makes her drowsy. She would like to break the dose up throughout the day into three 100 mg doses. Went over the above outlined plan with the patient and her daughter. They are in agreement with this plan. Will continue to reassess and make changes as needed. Denies side effects/sedation on current regimen. History: Past Medical History: Diagnosis Date Hypertension Stroke (HCC) Past Surgical History: Procedure Laterality Date COLECTOMY LAPAROSCOPIC RIGHT N/A 12/23/2022 Procedure: LAPAROSCOPIC RIGHT COLECTOMY; Surgeon: Kell Deras MD; Location: [facility] Main OR; Service: General Surgery COLONOSCOPY N/A 12/20/2022 Procedure: COLONOSCOPY; Surgeon: Storm Byers MD; Location: [facility] Endo; Service: Gastroenterology EGD N/A 12/20/2022 Procedure: ESOPHAGOGASTRODUODENOSCOPY; Surgeon: Storm Byers MD; Location: [facility] Endo; Service: Gastroenterology History reviewed. No pertinent family history. Social History Socioeconomic History Marital status: Tobacco Use Smoking status: Never Passive exposure: Past Smokeless tobacco: Never Vaping Use Vaping status: Never Used Passive vaping exposure: Yes Substance and Sexual Activity Alcohol use: Not Currently Drug use: Never Allergy Information: I have reviewed the patient's allergies. Amlodipine Home Medications: Outpatient Medications as of 12/28/2022 Medication Sig amLODIPine (NORVASC) 2.5 MG tablet Take 1 (one) tablet (2.5 mg total) by mouth daily . aspirin 81 mg chewable tablet Chew and Swallow 1 (one) tablet (81 mg total) . atenoloL (TENORMIN) 50 MG tablet Take 1.5 (one and a half) tablets (75 mg total) by mouth daily . calcium carbonate (TUMS) 200 mg calcium (500 mg) chewable tablet Chew and Swallow 1 (one) tablet (500 mg total) 3 (three) times a day . clopidogreL (PLAVIX) 75 mg tablet Take 1 (one) tablet (75 mg total) by mouth daily . furosemide (LASIX) 20 MG tablet Take 1 (one) tablet (20 mg total) by mouth daily . lisinopriL (PRINIVIL,ZESTRIL) 20 MG tablet Take 1 (one) tablet (20 mg total) by mouth 2 (two) times a day . omeprazole (PRILOSEC) 40 MG capsule Take 1 (one) capsule (40 mg total) by mouth daily . Review of Systems: The following system(s) were reviewed and pertinent findings noted: All other systems reviewed and negative other than HPI Physical Examination: Vital Signs: BP (!) 164/77 Pulse (!) 101 Temp 98.5 F (36.9 C) (Oral) Resp 15 Ht 5' 3 Wt 69 kg (152 lb 1.9 oz) SpO2 95% BMI 26.95 kg/m General: Awake/Alert, cooperative, no distress, appears stated age Head: Normocephalic, without obvious abnormality, atraumatic, right nare NG Eyes: Conjunctiva/corneas clear, EOM intact Throat: Lips, mucosa, and tongue normal; teeth and gums normal Neck: Symmetrical, trachea midline Back: Symmetric, no obvious curvature Lungs: Respirations unlabored,normal respiratory effort Chest Wall: No tenderness or deformity Cardiovascular: Regular rate Genitourinary Not examined Abdomen: Soft, non-distended Skin: Skin color wnl, no rashes or lesions Musculoskeletal: ZARAGOZA x 4, no joint edema Neurologic: Oriented, follows commands, gross strength and sensation intact Psych: Mood and affect appropriate Intake/Output last 3 shifts: I/O last 3 completed shifts: In: 4429.4 [I.V.:3586.7; IV Piggyback:842.8] Out: 685 [Emesis/NG output:685] Medications: Scheduled Meds: acetaminophen 1,000 mg Intravenous Q8H enoxaparin (LOVENOX) injection 40 mg Subcutaneous Daily insulin lispro 0-30 Units Subcutaneous Q4H JOSH methocarbamol 1 g Intravenous Q8H metoprolol 5 mg Intravenous Q6H JOSH pantoprazole 40 mg Intravenous Daily sodium chloride (PF) 10 mL Intracatheter Q8H JOSH sodium chloride (PF) 5 mL Intravenous Q8H JOSH Continuous Infusions: Adult TPN 50 mL/hr at 12/28/22 0000 Adult TPN dextrose lactated Ringers 75 mL/hr (12/28/22 0327) sodium chloride 0.9 % Stopped (12/24/222140) PRN Meds: alteplase, aluminum-magnesium hydroxide-simethicone, benzonatate, dextrose, diphenhydrAMINE-zinc acetate, guaiFENesin, hydrALAZINE, labetalol, melatonin, morphine injection, nalOXone AND Notify physician AND naloxone, ondansetron OR ondansetron, oxyCODONE, simethicone, sodium chloride (PF), Saline lock IV AND sodium chloride (PF) AND sodium chloride (PF) AND sodium chloride 0.9 % Laboratory and Additional Data Reviewed: Laboratory 12/28/22 Microbiology 12/28/22 Pathology 12/28/22 Radiology 12/28/22 Cardiology 12/28/22 Medications 12/28/22 Transcriptions 12/28/22 Drugs of Abuse 12/28/22 Assessment Detail: The total time spent for this visit was 50 minutes. Greater than 50% of the time was spent in counseling and coordination of care regarding pain control and plan Please note that plan to help manage symptoms will include maximizing adjunctive agents and developing a multi-modal treatment plan. If opiate based medications are being used, we have talked about the risk and benefits of using this class of medication. Discussed with patient that there is a risk that opioid addiction could occur, meaning that he/she might become psychologically dependent on the medication and also discussed possible side effects/adverse events associated with narcotics Goal will be to use opiates at lowest effective doses for shortest period of time to help manage acute pain Discussed with Merlyn K Perez about realistic expectation surrounding pain control- as being pain free is unlikely Discussed safety is paramount while trying to keep them as comfortable as possible Associated attestation - Judah Mckinley MD - 12/28/2022 1:17 PM EDT Pain Management Attestation Consult received, chart reviewed. Agree with plan as outlined by CNP. Sienna Mckinley MD Pain Management Associated Order(s): IP CONSULT TO IV TEAM IV team consulted for PICC placement. Chart and History reviewed. PICC insertion explained to patient. Agreed to procedure. Double lumen PICC inserted following universal protocol into left basilic vein. PICC trimmed at 44cm. External length at 0cm. Patient tolerated well. PICC okay to use as tip is confirmed in lower SVC per ECG technology - maximum P wave and absence of negative deflection. Invasive Line Insertion Checklist followed. Flushes easily with good blood return. Primary RN notified OK to use. Associated Order(s): IP CONSULT TO CARE MANAGEMENT Care Management Consult Note Date: 12/25/2022 Time: 12:35 PM Patient Name: Merlyn Perez Date of : 1940 Reason for Consult: Discharge Plan: Post-Acute Patient Choice 1: [facility] Post-Acute Patient Choice 2: [facility] IPR Options Reviewed: Possible expense, Explained services/benefits Reason for Choice: Patient/Family preference Regulatory Documentation: Medicare IM Regulatory Documentation Status: Certified Patient Paper Copy: Patient received paper copy Discharging Transportation Plan: IPR vs SNF Transportation Type: Auto (daughter will provide transportation a DC) Assessment and Background Information: Living Arrangements: Alone Support Systems: Children Assistance Needed: none prior to admission Type of Residence: Private residence Prior to Admission Home Care Services: No Has discharge transport been arranged?: Yes (daughter) Current Home Equipment: None CM met with patient and daughter at bedside to complete consult for DC planning and IPR recommendations. Patient is alert , having pain and NGT in place, daughter agreeable to CM visit. CM reviewed medical record, introduced self and role of CM within multidisciplinary team. ? Reason for Admission: 1. Pulmonary nodule 2. Abdominal pain, unspecified abdominal location 3. Abdominal mass, unspecified abdominal location Living Environment / Support : Patient lives with alone in her own home and has been independent prior to hospitalization,; Daughter lives close by. Home Health / DME: Patient has used SNF in the past and would like to Use [facility] IPR at [place]. Daughter states that she will discuss with patient , Patient is not medically ready for DC at this time. NEW DME:needs none PCP Dr Milo Hercules MD and patient is active with care. . Health Insurance / RX / Financial Needs: Confirmed health and prescription coverage. Patient's preferred pharmacy confirmed on EMR . Patient denies financial hardship related to medical/prescription co-pays. . Patient is not linked with community resources. Transportation: Patient is able to drive a vehicle. Patient's family will provide transport home at discharge. Patient was appreciative of CM visit and denied additional needs at this time. CM/SW will continue to follow along with multidisciplinary team for ongoing assessments and planning. CM Interventions: Discussed IPR with patient and daughter, referral placed on EMR Kimberly KO,RN,CCM product safety coordinator Weekend -Contingent Utilization Management Secure Chat for non urgent issuse Vocera for urgent issues Physical Therapy PHYSICAL THERAPY EVALUATION and TREATMENT NOTE PHYSICAL THERAPY EVALUATION Skilled Therapy Needs After Discharge Anticipate Resolution of Current Assessment Limitations Including: Pain, Mechanical Barriers Are Skilled Therapy Services Needed After Discharge: Yes Intensity of Skilled Therapy: 5 to 7 days per week Anticipated Duration of Skilled Therapy: Duration 10 - 30 days DME Recommendation: To be determined at next level of care Rehab Potential: Good, For goals Outcomes Measures Prior Function - Basic Mobility Raw Score: 24 Points Prior Function - Basic Mobility % Impaired: 0% AM-PAC Basic Mobility Raw Score: 13 Points AM-PAC Basic Mobility % Impaired: 57.65 Physical Therapy Assessment History: The following factors influence the patient's participation in the PT plan of care: Personal Factors: Age, Decreased Insight Environmental Factors: Lives alone, Multi-level home The following co-morbidities (from this admission or prior) influence the patient's participation in this plan of care: Pt presents to [facility] s/p R hemicolectomy per Dr. Deras. PMhx: prior CVA, hx of CCY, EGD. Number of History elements affecting this patient's PT plan of care: 3 or more Examination of Body Systems: The patient presents with: Musculoskeletal impairments: Strength, ROM, Pain, Functional Endurance Neurologic Impairments: Coordination, Balance, Pain, Cognition Cardiopulmonary Impairments: Activity Tolerance Integumentary Impairments: Active Wound, Tissue Healing. These impairments result in limitations of Gait, Functional Transfers, Stair-Climbing, Safety, Safety Awareness, Activity Tolerance, Insight. These impairments result in restrictions of Household mobility, Community mobility. Number of Body Systems elements affecting this patient's PT plan of care: 4 or more. Clinical Presentation: The patient's clinical presentation for this PT evaluation is with unstable and unpredictable characteristics as evidenced by current PT documentation. Activity Tolerance Activity Tolerance: Tolerates 30 min acitivty with multiple rests Therapy Precautions Orthotic Devices: No Weight Bearing Status: WFL General Rehab Precautions: Fall risk, Abdominal Balance Assessment Sitting Balance - Static: Contact guard assist, Minimal assist Loss of Balance - Sitting Static: posterior, inconsistent Sitting Balance - Dynamic: Minimal assist, Contact guard assist Loss of Balance - Sitting Dynamic: posterior, intermittent Standing Balance - Static: Minimal assist, Contact guard assist, with device, with bilateral UE support Emergency Room Rn - Standing Static: wheeled walker Loss of Balance- Standing Static: (generalized unsteadiness and postural sway, increased posterior leaning w/ increased time upright) Standing Balance - Dynamic: Contact guard assist, Minimal assist, with device, with bilateral UE support Emergency Room Rn - Standing Dynamic: same cafeteria aide used for static standing tasks Loss of Balance- Standing Dynamic: (generalized unsteadiness and postural sway, increased posterior leaning w/ increased time upright) Bed Mobility Rolling: Moderate assist, Maximal assist, Head of bed elevated Supine to Sit: Moderate assist, Maximal assist, Head of bed elevated (x1-2 person assist) Sit to Supine: (pt in bedside chair at end of session) Emergency Room Rn: bedrails, bed positioning mechanics, patient slide sheet / friction-reducing device Transfers Sit to Stand: Contact guard assist Bed to Chair: Contact guard assist, Minimal assist (x1-2 assist for safety; fading w/ increase time) Stand Pivot Transfers: Contact guard assist Emergency Room Rn: wheeled walker Gait/Locomotion Gait Assistance: Contact guard assist, Minimal assist (variable assist) Assistive Device: wheeled walker Distance: 3 Feet (side steps/pivot to bedside chair) Pattern: step to, step through, R decreased step length, L decreased step length, narrow base of support, over reliance on upper extremities, decreased larry (steps per minute) Weight Bearing Status: able to maintain Gait Loss(es) of Balance: (generalized unsteadiness, and postural sway; no overt LOB) Environment/Terrain: closed environment, minimal to no distractions Home Living Obtained Home Living and PLOF info from: Patient, Patient s family member Lives With: Alone (Daughter able to assist) Type of Home: House Home Layout: One level, Laundry in basement, Stairs between floors (working on bringing laundry up to main level) Rails on inside stairs: 1 rail Number of stairs inside home: 12 Bathroom Shower/Tub: Tub/shower unit (pt showers or sits in tub to bathe) Bathroom Toilet: Standard Bathroom Equipment: (none) Bathroom Accessibility: Accessible Mobility Equipment: (none per pt) Additional Objective Details - Home Living: Daughter completes financial services representative, medication management (post CVA, prior to CVA, pt was independent w/ med management). Pt endorsing x1 fall recently Prior Level of Function Level of Sherman - Transfers/Ambulation/Mobility: Independent with household ambulation, Independent with functional transfers Level of Sherman - ADLs: Independent Level of Sherman - Homemaking: Independent Driving: Patient drives (pt's daughter assist (states has not been driving as much recently)) PHYSICAL THERAPY TREATMENT NOTE Total Treatment Time (Total Session Time): 42 Minutes Total Timed Code Treatment Minutes: 8 Minutes Neuromuscular Reeducation Sitting Balance Treatment: weight shifting left, weight shifting anterior, upright gaze, postural re-education, maintaining midline orientation Skilled Intervention Provided: verbal cues, tactile cues, patient education, facilitation For: safe use of AD and/or equipment, efficient movement, energy conservation, postural alignment, LE management, LE positioning, UE management, UE positioning Resulting in: improved safety, improved performance, improved activity tolerance, improved adherence to precautions Standing Balance Treatment: weight shifting right, weight shifting left, weight shifting anterior, postural re-education, maintaining midline, upright gaze, stepping forward, side stepping Skilled Intervention Provided: verbal cues, tactile cues, patient education For: LE management, LE positioning, UE management, UE positioning, energy conservation, efficient movement, safe use of AD and/or equipment, self-monitoring during activity, weight shifting Resulting in: improved activity tolerance, improved adherence to precautions, improved safety, improved performance, improved functional independence Gait Training Skilled Intervention Provided: verbal cues, tactile cues, patient education, monitoring patient response with activity For: UE positioning, LE positioning, UE management, LE management, gait technique, gait sequence, energy conservation techniques, efficient movement, postural alignment Resulting in: improved activity tolerance, improved adherence to precautions, improved safety, improved performance, improved functional independence Therapeutic Activities Bed Mobility Skilled Intervention Provided: verbal cues, tactile cues, patient education, monitoring patient response with positional changes For: LE management, LE positioning, UE management, UE positioning, postural alignment, efficient movement, energy conservation Resulting in: improved safety, improved performance, improved functional independence Transfers Skilled Intervention Provided: verbal cues, tactile cues, patient education, monitoring patient response with activity For: safe use of AD and/or equipment, efficient movement, energy conservation, controlled descent, postural alignment, necessary precautions Resulting in: improved safety, improved performance Additional Treatment Details Pt cleared per nursing prior to PT arrival. Pt's daughter present at bedside, endorsing all PLOF and home information. pt educated on abdominal precautions, verbal cues and assist required to implementation into functional mobility. Limited mobility progression this date due to increased pain in abdomen w/ functional tasks. Pt with noted increased bracing throughotu mobility, VCs and assist to place UEs on walker fo balance. Pt with increased assist for task completion (log roll) due to noted motor planning deficits. Pt assisted to bedside chair, positioned for comfort. Needs and call light in reach at departure. History reviewed. No pertinent past medical history. Past Surgical History: Procedure Laterality Date COLECTOMY LAPAROSCOPIC RIGHT N/A 12/23/2022 Procedure: LAPAROSCOPIC RIGHT COLECTOMY; Surgeon: Kell Deras MD; Location: [facility] Main OR; Service: General Surgery COLONOSCOPY N/A 12/20/2022 Procedure: COLONOSCOPY; Surgeon: Storm Byers MD; Location: [facility] Endo; Service: Gastroenterology EGD N/A 12/20/2022 Procedure: ESOPHAGOGASTRODUODENOSCOPY; Surgeon: Storm Byers MD; Location: [facility]; Service: Gastroenterology For complete objective data, detailed plan of care and patient education refer to: PT Evaluation flowsheet, PT Evaluation and Treatment flowsheet, PT Treatment flowsheet, patient Plan of Care, Plan of Care progress note, and Patient Education. This note stands as the current Discharge Summary upon patient discharge from the hospital or completion of Physical Therapy Plan. Occupational Therapy OCCUPATIONAL THERAPY EVALUATION AND TREATMENT NOTE OCCUPATIONAL THERAPY EVALUATION Skilled Therapy Needs After Discharge Anticipate Resolution of Current Assessment Limitations Including: Social Support Are Skilled Therapy Services Needed After Discharge: Yes Intensity of Skilled Therapy: 5 to 7 days per week Anticipated Duration of Skilled Therapy: Duration 10 - 30 days DME Recommendation: To be determined at next level of care Rehab Potential: Excellent Outcomes Measures Prior Function Daily Activity Raw Score: 24 Prior Function Daily Activity % Impaired: 0% AM-PAC Daily Activity Raw Score: 14 AM-PAC Daily Activity % Impaired: 59.67% Occupational Therapy Assessment The patient's current functional participation deficits are grooming, LE dressing, UE dressing, bathing, toileting, functional mobility. This reduced independence will limit their life roles of family member, community member. The patient's co morbidities do significantly affect patient performance in the above activities and roles. The performance deficits are a result of musculoskeletal, vascular, integumentary, psychological, neurological impairment(s) in generalized debility, trunk, bilateral, upper extremity, lower extremity, global systems including strength, range of motion, balance, dexterity, coordination, acitvity tolerance, pain, safety, insight, perception, alertness, memory, attention, problem solving, sequencing, orientation, command following, termination, initiation, and knowledge deficit. The patient's home setup is a barrier, limitations of family / caregiver support is a barrier for return to prior level of function. The patient's awareness of own capacity and performance is a barrier to return to prior level of function. During the assessment, significant modification of task was required and multiple treatment options were identified in the plan of care. This consultation required extensive review of the medical and therapy history. Activity Tolerance Activity Tolerance: Tolerates 20 - 30 min activity with multiple rests Therapy Precautions Orthotic Devices: No General Rehab Precautions: Fall risk, Abdominal Cognition Overall Cognitive Status: Impaired Arousal/Alertness: Appropriate responses to stimuli Orientation Level: Oriented X4, With choices, With cues Executive functioning: Mod impairment, Sequencing, Processing delay, Insight, Planning / Organizing Safety Judgment: Decreased awareness of need for safety Problem Solving: Assistance required to implement solutions, Assistance required to generate solutions Attention: (S) Easily distracted Hearing Status: Hard of hearing Social Interaction: Cooperative, Impulsive, Confused, Verbose, Expressive deficit, Word finding Comments: Pt follows single-step commands with increased time and repetition; demos difficulty with 2-step command following this date. ADL Feeding: Set-up Upper Body Dressing: Minimal assist Lower Body Dressing: Moderate assist Functional Mobility: Minimal assist Bed Mobility Rolling: Moderate assist, 2 person assist Supine to Sit: Maximal assist, 2 person assist Functional Transfers Sit to Stand: Minimal assist, 2 person assist Bed to Chair Transfers: Minimal assist, 2 person assist Emergency Room Rn: wheeled walker Home Living Obtained Home Living and PLOF info from: Patient, Patient s family member Lives With: Alone (Daughter able to assist) Type of Home: House Home Layout: One level, Laundry in basement, Stairs between floors (working on bringing laundry up to main level) Rails on inside stairs: 1 rail Number of stairs inside home: 12 Bathroom Shower/Tub: Tub/shower unit (pt showers or sits in tub to bathe) Bathroom Toilet: Standard Bathroom Equipment: (none) Bathroom Accessibility: Accessible Mobility Equipment: (none per pt) Additional Objective Details - Home Living: Daughter completes financial services representative, medication management (post CVA, prior to CVA, pt was independent w/ med management). Pt endorsing x1 fall recently Prior Level of Function Level of Sherman - Transfers/Ambulation/Mobility: Independent with household ambulation, Independent with functional transfers Level of Sherman - ADLs: Independent Level of Sherman - Homemaking: Independent Driving: Patient drives (pt's daughter assist (states has not been driving as much recently)) Subjective Impression - Prior Function: (S) Pt did not receive any therapy following recent CVA. OCCUPATIONAL THERAPY TREATMENT NOTE Total Treatment Time (Total Session Time): 45 Minutes Total Timed Code Treatment Minutes: 25 Minutes Cognitive Skills Development Skilled Intervention Provided: patient education, caregiver/family education with patient involvement, facilitation, multi-modal cues For: increased awareness of the environment, necessary precautions, preparing for self-care tasks Resulting In: increased insight into deficits, improved problem solving Self-Care / ADL Upper Body Dressing - Skilled Intervention Provided: facilitation, monitored patient's safety & tolerance Upper Body Dressing - For: efficient movement Upper Body Dressing - Resulting In: improved overall self care Lower Body Dressing - Skilled Intervention Provided: facilitation, verbal cues, visual cues Lower Body Dressing - For: necessary precautions, efficient movement Lower Body Dressing - Resulting In: improved overall self care Functional Mobility - Skilled Intervention Provided: facilitation, verbal cues Functional Mobility - For: fall prevention, efficient movement Functional Mobility - Resulting In: decreasing fall risk Therapeutic Activities Bed Mobility Skilled Intervention Provided: facilitation, verbal cues, monitoring patient response with activity For: fall prevention, efficient movement, logroll technique, necessary precautions Resulting In: improved safety, improved performance Functional Transfers Skilled Intervention Provided: facilitation, verbal cues, visual cues For: fall prevention, efficient movement Resulting In: improved balance Neuromuscular Reeducation Sitting Balance - Static: Independent Sitting Balance - Dynamic: Supervision Standing Balance - Static: Contact guard assist Standing Balance - Dynamic: Minimal assist Additional Treatment Details Educated pt re: abdominal precautions with application to ADLs and functional mobility; pt verbalizes and returns demo of teaching with mod verbal and visual cueing for carryover. Educated pt re: importance of establishing a functional mobility routine during hospital stay to prevent deconditioning and promote overall activity tolerance for ADLs; pt verbalizes understanding of teaching. History reviewed. No pertinent past medical history. Past Surgical History: Procedure Laterality Date COLECTOMY LAPAROSCOPIC RIGHT N/A 12/23/2022 Procedure: LAPAROSCOPIC RIGHT COLECTOMY; Surgeon: Kell Deras MD; Location: [facility] Main OR; Service: General Surgery COLONOSCOPY N/A 12/20/2022 Procedure: COLONOSCOPY; Surgeon: Storm Byers MD; Location: [facility] Endo; Service: Gastroenterology EGD N/A 12/20/2022 Procedure: ESOPHAGOGASTRODUODENOSCOPY; Surgeon: Storm Byers MD; Location: [facility] Endo; Service: Gastroenterology For complete objective data, detailed plan of care and patient education refer to: OT Evaluation flowsheet, OT Evaluation and Treatment flowsheet, OT Treatment flowsheet, patient Plan of Care, Plan of Care progress note, and Patient Education. This note stands as the current Discharge Summary upon patient discharge from the hospital or completion of Occupational Therapy Plan of Care. Associated Order(s): IP CONSULT TO PULMONOLOGY PULMONARY/CRITICAL CARE CONSULTATION Impressions Lung Nodule Mild AP window mediastinal lymphadenopathy Abdominal mass Recent cva Plan I would recommend radiographic surveillance of the ap window lymphadenopathy and right lower lobe nodule with a ct chest at a 3 month interval. The inta-thoracic findings are likely to be benign. The ap window lymph node would only be accessible via vats or chamberlain and that seems overly aggressive. The right lower lobe nodule is small and I would not pursue biopsy presently. I think the priority is the abdominal mass and would focus on that presently. Gi on board and pursuing endoscopies. I personally updated daughter at bedside and all questions answered Reason for Consultation: abnormal chest ct HPI: Merlyn Perez is an 82 y.o. female presented to outside facility multiple times with abdominal and back pain. CT abdomen eventually reviewed an abdominal mass. Denies brbpr. Possibly had some melena. Has nausea and dry heaving no hematemesis. No chest pain sob or cough. No fevers chills night sweats or hemoptysis she has lost some weight. Has generalized fatigue and malaise. Poor historian due to prior cva but is assisted by family. PMH: CVA Encephalitis Remote asthma Allergies amlodipine Meds reviewed SH: Lifelong nonsmoker FH: No ILD ROS Constitutional fatigue Ent no postnasal drip Eyes no blurry vision Cardiovascular no syncope Respiratory no wheezing Gi no bloating Skin no rash Neuro no tremor Psych no anxiety Musc no myalgias Endocrine no excessive thirst Hematologic no lymph node swelling Gu no dysuria Allergy no hayfever All other remaining systems are negative except as noted in the HPI. PHYSICAL EXAM BP (!) 164/89 (BP Location: Right arm, Patient Position: Lying) Pulse 80 Temp 99 F (37.2 C) (Oral) Resp 14 Ht 5' 3 Wt 68 kg (150 lb) SpO2 97% BMI 26.57 kg/m GEN: NAD EYES: Sclera anicteric HEENT: MMM NECK: Supple LUNGS: CTA Bilat HEART: NL s1/s2 ABD: Soft EXT: No LE Edema bilat, no deformities noted SKIN: Warm to touch, no visible rashes PSYCH: Awake, alert and oriented x 3 Musc no tenosynovitis Laboratory Data Labs reviewed in the chart. Lab Results Component Value Date GLUCOSE 109 (H) 12/18/2022 CALCIUM 9.0 12/18/2022 NA 134 (L) 12/18/2022 K 4.2 12/18/2022 CL 101 12/18/2022 BUN 7 (L) 12/18/2022 CREATININE 0.40 (L) 12/18/2022 Lab Results Component Value Date WBC 5.48 12/18/2022 HGB 11.8 (L) 12/18/2022 HCT 35.1 (L) 12/18/2022 MCV 90.9 12/18/2022 PLT 194 12/18/2022 RBC 3.86 (L) 12/18/[address] chest images personally reviewed left upper lobe calcified granuloma, mild AP window lymphadenopathy, small right lower lobe noncalcified noduel Associated Order(s): IP CONSULT TO GASTROENTEROLOGY GASTROENTEROLOGY/HEPATOLOGY CONSULT NOTE 4 Patient Name: Merlyn Perez Admit Date: [id number] Date of Consult: 12/17/22 MR #: [id number] : 1940 Physicians: Milo Hercules MD (Family); No ref. provider found (Referring) Consult Ordered By: Dr. St Assessment and Plan: The patient's imaging suggests an intra-abdominal mass, though it appears to be adjacent to the terminal ileum, and not originating from the bowel. Nonetheless, her UGI symptoms are concerning, so she can complete an EGD on Tuesday. In addition, she will complete a colonoscopy on Tuesday. I will start her on a bowel regimen today due to stool burden on imaging. She can have a regular diet through Tuesday with a clear liquid diet on Tuesday morning until her procedures are completed. Bowel preparation on Tuesday evening. Chief Complaint/Reason for Visit: Abnormal imaging History of Present Illness: Merlyn Perez is a 82 y.o. female with pmhx of HTN, HLD, GERD, and CVA who presents as a transfer from [place] for evaluation of abnormal imaging with c/f mass near terminal ileum. The patient reports developing early sateity, nausea, reflux, and epigastric discomfort after making medication adjustments to her anti-hypertensives. The patient reports she also had changes in bowel habits over the last few months as well with alterations between constipation and diarrhea. She denies any melena, hematochezia, weight loss, or dysphagia. The patient's only colonoscopy was 10 years ago. She has never undergone an upper endoscopy. GI Specific Family History: No significant family history of GI malignancy or disorder Social History Socioeconomic History Marital status: Allergy Information: I have reviewed the patient's allergies. Amlodipine Home Medications: No current outpatient medications on file as of 12/17/2022. Review of Systems: All remaining systems were reviewed and are negative except for those mentioned in the HPI Physical Examination: Vital Signs: Temp: [97.6 F (36.4 C)-98.2 F (36.8 C)] 97.6 F (36.4 C) Heart Rate: [74-93] 93 Resp: [18-20] 20 BP: (162-190)/(73-92) 190/83 GEN NAD HEENT anicteric sclerae CV rrr Pulm nonlabored breathing Abd: soft, nt, nd, bs present Ext: warm, no edema Neuro no asterixis Psych normal affect Laboratory and Additional Data Reviewed: Laboratory and Radiology Results from last 7 days Lab Units 12/17/22 1250 WBC K/mcL 5.25 HGB g/dL 11.9* HCT % 34.3* PLT K/mcL 165 Results from last 7 days Lab Units 12/17/22 1251 SODIUM mmol/L 139 POTASSIUM mmol/L 2.9* CHLORIDE mmol/L 101 BUN mg/dL 11 CREATININE mg/dL 0.56* TOTAL PROTEIN g/dL 6.9 BILIRUBIN TOTAL mg/dL 0.7 ALK PHOS U/L 103 ALT U/L 61* AST U/L 34 GLUCOSE mg/dL 104* Dario Henderson Associated Order(s): IP CONSULT TO NEUROLOGY Images from the original note were not included. Neurology Inpatient Consult [facility] 12/17/2022 Pacheco Mejía MD [facility] Patient: Merlyn Perez Date of : 1940 (82 y.o. female) Referring Provider: Refer to consult order in electronic medical record PCP: Milo Hercules MD ASSESSMENT: 82 y.o. female with history of HTN, HLD, anxiety/depression, asthma, GERD, recent stroke (11/27/2022), history CCY presented to [facility] on 12/17/2022 with abdominal mass. Neurology asked to comment on recent stroke. Per report, imaging suggestive of embolic etiology and she was evaluated for pAF. In hindsight, with her newly discovered abdominal mass, hypercoagulability of malignancy also in the differential. We will work to get outside imaging. PLAN: Recent bilateral stroke (11/27/2022) Abdominal mass, concerning for malignancy, NOS Will get outside MRI brain and CTA to review Okay to discontinue Clopidogrel in anticipation of probable surgery Continue Aspirin 81 mg/day, as able, but currently on hold, per surgery Given reports, low likelihood that there would be a delay for surgery relative to her recent stroke, but will aim to get images to review Further recommendations to follow review of imaging Admitted with these risk variables:None. Please see assessment and plan for further details. Answered questions and rediscussed plan at length with Patient, Daughter. Covering neurologist: Dr. Mejía. DIAGNOSTIC TESTING SUMMARY: Resulted Testing: (MRI/CT/XR, EEG, EMG, CSF, Cardiac, Labs) CT A/P w/ IV contrast (12/16/2022): RLQ mass in distal small bowel exophytic appearing 1.7 x 1.6 cm w/ possible trace amount of blood in lumen, adjacent nodule in RLQ suspicious for reactive/metastatic LN, multiple small reactive LNs in RP and mesentery Chem: K 2.9 CBC: Unremarkable I have personally reviewed/visualized the patient's images, as documented above. I have personally reviewed the patient's labs, as listed above. SUBJECTIVE: Chief Complaint/Reason for Consult: History of stroke; Abdominal mass Informant(s): Patient, Daughter, Care Team/Chart History of Present Illness: Merlyn Perez is a 82 y.o. female with past medical history of HTN, HLD, anxiety/depression, asthma, GERD, recent stroke (11/27/2022), history CCY who presented with abdominal pain found to have an abdominal mass. Neurology consulted due to her recent history of stroke and need for probable abdominal surgery. Patient and daughter present at the bedside. She had a stroke 11/27, manifesting with left facial droop and speech changes. MRI brain with bilateral, embolic-appearing strokes. CTA head and neck c/w right vertebral artery stenosis and plaques and the carotid bulbs. She was discharged on an event monitor for possible pAF and placed on Aspirin and Clopidogrel. She has done well since her stroke. She has mild left facial droop and some speech troubles. Her stroke was taken care of at [facility]. Per recent discharge summary: Media Information Review of Systems: All systems reviewed and negative except pertinent positives and negatives documented in the History of Present Illness (HPI). History: No past medical history on file. No past surgical history on file. Social History: has no history on file for tobacco use, alcohol use, and drug use. No family history on file. Additional History Comments: None Allergies: Patient has no allergy information on record. HOME Medications: No current facility-administered medications on file prior to encounter. No current outpatient medications on file prior to encounter. OBJECTIVE: Physical Examination: BP (!) 184/74 Pulse 91 Temp 97.6 F (36.4 C) Resp (!) 20 Ht 5' 3 Wt 68 kg (150 lb) SpO2 94% BMI 26.57 kg/m TOLEDO: DNFC: Does Not Follow Commands ANTHONY: Unable to Assess GENERAL: General Appearance: In NAD Eyes: See pupils below Ears: See hearing below Neck: Supple Respiratory Effort: Normal Extremities: No edema Skin: No rashes visualized MENTAL STATUS: Alertness, Attention Span & Concentration: Normal Language: Normal Speech: Normal Orientation: Normal Memory, Recent & Remote: Normal Fund of Knowledge: Normal CRANIAL NERVES: II - Visual [place]: Normal II, III - Pupils: PERRL III, IV, - Eye Movements: Normal (EOMI, no ptosis, no nystagmus) V - Facial Sensation: Normal VII - Face Symmetry and Strength: Left lower facial droop VIII - Hearing: Normal IX, X - Palate: Normal XI - Shoulder Shrug: Normal XII - Tongue Protrusion: Normal COORDINATION & GROSS MOTOR: Abnormal Movements: None Coordination [id number]: Normal Coordination: Xtxc-[id number]-[id number]:Normal Rapid Alternating Movements: Normal Drift: None Tone: Normal Bulk: Normal MOTOR - MUSCLE STRENGTH: Muscle Strength Right Left 5 Shoulder Abduction (Deltoid) 5 5 Elbow Flexion (Biceps) 5 5 Elbow Extension (Triceps) 5 5 Finger Abduction (Interossei) 5 5 Hip Flexion (Iliopsoas) 5 5 Knee Extension (Quads) 5 5 Knee Flexion (Hamstrings) 5 5 Dorsiflexion (Anterior Tibialis) 5 MOTOR TOLEDO: 5 Normal (Normal Power) 4 Mild Weakness (Movement against moderate resistance over a full range of motion) 3 Moderate Weakness (Movement against gravity over almost full range of motion) 2 Severe Weakness (Movement with gravity eliminated over almost full range of motion) 1 Trace Movement (flicker of contraction visible or palpable) 0 No Movement (No contraction visible or palpable) ANTHONY Unable to Assess REFLEXES: Right Reflexes Left 1+ Biceps 1+ 1+ Triceps 1+ Brachioradialis 1+ Patellar 1+ Achilles Down Plantar Response (Babinski) Down REFLEXES TOLEDO: 4+ Sustained Clonus 3+ Brisk 2+ Normal 1+ Diminished 0 Absent ANTHONY Unable to Assess SENSATION: Fine Touch: Normal SURGICAL ONCOLOGY CONSULT Patient Name: Merlyn Perez ASSESSMENT AND PLAN Merlyn Perez is a 82 y.o. female with history of HTN, HLD, anxiety/depression, asthma, GERD, recent admission for CVA (11/27/2022) on Plavix, w/ hx of R frontal, parietal, and L temporal infarctions, h/o CCY who presented to [facility] on 12/17/2022 as transfer from [facility] with RLQ back pain, concern for mass. Admitted with these risk variables:None. Please see assessment and plan for further details. 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 Mina St MD General Surgery PGY-2 Please contact surgical director international application packaging consultant 5PM-6AM and weekends - #[phone] BLUE Pager - [phone] HISTORY OF PRESENT ILLNESS Merlyn Perez is a 82 y.o. female with history of HTN, HLD, anxiety/depression, asthma, GERD, recent admission for CVA (11/27/2022) on Plavix, w/ hx of R frontal, parietal, and L temporal infarctions, h/o CCY who presented to [facility] on 12/17/2022 as transfer from [facility] with RLQ back pain, concern for mass. Patient states she presented to [place] ED after blood pressure had been high lately. She had a recent stroke on 11/27/2022 and was started on Plavix. She was started on hydralazine around this time, which caused many side effects and was discontinued. She has not been able to eat much over the last few days. She also describes recent low back pain 3 days ago. Pain was unrelieved by BM. She denies having any bloody BM. Last Plavix dose 12/16/2022. She had prior colonoscopy many years ago, thinks maybe 10 years ago. Review of Systems Constitutional: No fever Eyes: No diplopia ENT: No sinus drainage CV: No chest pain Resp: No dyspnea GI: Positive for RLQ/back pain : No dysuria Neuro: No headache Integumentary: No skin rash MuscSkel: No arthralgias Endo: No polyuria PAST MEDICAL, SURGICAL, FAMILY, SOCIAL HISTORY No past medical history on file. No past surgical history on file. No family history on file. Social History Socioeconomic History Marital status: PHYSICAL EXAM VITALS PACU Vitals 12/17/22 1207 BP: (!) 182/92 Pulse: 80 Resp: (!) 20 Temp: 97.6 F (36.4 C) SpO2: 97% PHYSICAL EXAM General: NAD Head: Normocephalic, atraumatic Eyes: EOM grossly intact Neck: Trachea midline Cardiovascular: HDS Pulmonary: Nonlabored breathing on RA Extremities: No obvious deformities Skin: Dry and intact Neurological: ZARAGOZA GI: Abd soft, NTTP, non-distended, no peritoneal signs IMAGING/LABS Interval imaging and laboratory results reviewed Associated attestation - Kell Deras MD - 12/18/2022 9:39 AM EDT Surgical Oncology Consult I have reviewed the notes, assessments, and/or procedures performed by resident/KRISTEN, I concur with her/his documentation with the following additions/addendums: I have personally seen and examined the patient on rounds. Assessment: 82-year-old female with recent diagnosis of TIA vitamin initiated on Plavix presented to the hospital with altered mental status and abdominal complaints involving right lower quadrant abdomen and back pain. She underwent a CT scan of her abdomen which demonstrated concern for a terminal ileal mass with possibility of an active bleed. Diagnoses: Terminal ileal mass Hypertension History of recent TIA Altered mental status Plan: Discussed with the patient and her daughter was present with her today. Reviewed her CT scan with her which demonstrates an enhancing mass sitting likely adjacent to the terminal ileum with associated mesenteric adenopathy. Radiographic appearance is most concerning for an neuroendocrine type tumor but other differentials include other intestinal based masses. has been many years since her last colonoscopy. GI has been consulted and she will undergo bowel prep to the weekend with plans for colonoscopy Tuesday. Appreciate neurology evaluation and management. We will hold antiplatelet therapy at this time in anticipation of need for possible surgery. Discussed possible laparoscopic small bowel resection with right colectomy given the concern for malignancy in this area. Unclear if the TI lesion is causing a partial obstruction resulting in some of her symptoms and complaints. Appreciate preoperative or stratification by the medical team. Chief Complaint/Reason for Visit: Terminal ileal mass History: Merlyn Perez is a 82 y.o. y/o female presenting with a terminal ileal mass. She was recently diagnosed with a TIA but has been having complaints of intermittent abdominal pain and lower back pain for the last several weeks. This acutely worsened in the last several days prompting presentation to the emergency department. She underwent CT scan at the outside hospital which demonstrated several enlarged mesenteric lymph nodes as well as a enhancing mass sitting adjacent to the terminal ileum. Denies significant weight loss. Endorses nausea but no overt emesis. ROS: A complete review of systems was performed and all pertinent positives and negatives are noted in the HPI above. Allergies: Amlodipine History reviewed. No pertinent past medical history. History reviewed. No pertinent surgical history. History reviewed. No pertinent family history. Social History Socioeconomic History Marital status: Tobacco Use Smoking status: Never Passive exposure: Past Smokeless tobacco: Never Vaping Use Vaping Use: Never used Substance and Sexual Activity Alcohol use: Not Currently Drug use: Never Exam: Vital Signs: BP (!) 173/111 Pulse 96 Temp 97.4 F (36.3 C) (Oral) Resp 18 Ht 5' 3 Wt 68 kg (150 lb) SpO2 95% BMI 26.57 kg/m Constitutional: Overweight body habitus Eyes: normal conjunctivae, no scleral icterus, extraocular movements intact. ENT: external ears and nose without masses/defects, normal hearing with finger rub. Neck: midline trachea, normal neck symmetry. Cardiovascular: no edema noted in extremities, 2+ pedal pulses. Respiratory: normal respiratory effort without use of accessory muscles, breath sounds equal bilaterally. Gastrointestinal: abdomen is soft, right lower quadrant is mildly tender, non-distended. No palpable masses presents. Previous surgical incisions well-healed Skin: no rash noted, warm, dry and intact. Musculoskeletal: no evidence of clubbing or cyanosis of the digits. Psychiatric: Appropriate judgement and insight, oriented to person, place and time. Data: Labs Reviewed: 12/18/22 9:31 AM Lab Results Component Value Date WBC 5.48 12/18/2022 HGB 11.8 (L) 12/18/2022 HCT 35.1 (L) 12/18/2022 MCV 90.9 12/18/2022 PLT 194 12/18/2022 RBC 3.86 (L) 12/18/2022 Lab Results Component Value Date GLUCOSE 109 (H) 12/18/2022 CALCIUM 9.0 12/18/2022 NA 134 (L) 12/18/2022 K 4.2 12/18/2022 CL 101 12/18/2022 BUN 7 (L) 12/18/2022 CREATININE 0.40 (L) 12/18/2022 Lab Results Component Value Date BILITOT 0.7 12/17/2022 BILIDIR 0.3 12/17/2022 ALKPHOS 103 12/17/2022 AST 34 12/17/2022 ALT 61 (H) 12/17/2022 ALBUMIN 3.9 12/17/2022 Lab Results Component Value Date INR 1.1 12/18/2022 PROTIME 14.0 12/18/2022 Tumor Markers: No results found for: CA199, CEA, AFPTM, EXTCHROMOGA, EXTPANPOL Drain Labs: No results found for: AMYBF, BILIRUBINFLU, CREATFL Pathology Reviewed: 12/18/22 9:31 AM No results found for: FINALDX Imaging Reviewed: 12/18/22 9:31 AM I have personally reviewed and interpreted the following imaging studies: CT chest abdomen pelvis reviewed demonstrating calcified left upper lobe nodule as well as a small less than 1 cm right lower lobe nodule. She has a right-sided cardiophrenic enlarged lymph node. Within the abdomen there is noted a previous cholecystectomy. She has numerous mildly enlarged lymph nodes in the right lower quadrant mesentery associated with the right colon and terminal ileal mesentery. There is an enhancing mass sitting just adjacent to the terminal ileum versus originating from it. KUB performed demonstrating mildly dilated small bowel loops with significant stool burden in the right colon Impressions for radiology reports reviewed are listed below: XR Abdomen AP Result Date: 12/18/2022 EXAMINATION: XR ABDOMEN /KUB/FLAT PLATE/1 VIEW 12/18/2022 6:46 am HISTORY: ORDERING SYSTEM PROVIDED HISTORY: eval distension, TECHNOLOGIST PROVIDED HISTORY: Illness/Other Reason for exam: eval distension Cancer History: Surgery, RadiationHistory: Encounter Type: Unknown Additional signs and symptoms: ORDERING SYSTEM PROVIDED DIAGNOSIS CODES: R10.9 Abdominal pain, unspecified abdominal location R19.00 Abdominal mass, unspecified abdominal location COMPARISON: 05/11/2007 FINDINGS/ Right upper quadrant surgical clips. Borderline mild small bowel loop dilation up to 3.1 cm. No air-fluid level. Moderate stool load. No suspicious intraabdominal calcifications. Workstation ID: [id number] Reviewed CT scan read from outside hospital: Within the distal small bowel abutting the terminal ileum is a 1.7 cm mass which is exophytic. Concern for hyperdense material within the colon with possible active bleed versus prior contrast from previous study. Decision to obtain old records: Review and summary of old records: E/M Codin - High documented in this encounter [facility] 01-06-2023 Hospital Discharg e instructions Loli Gonzáles RN - 01/06/2023 9:24 AM EDT Josette VALENTINE. Another fax number that can be used is Fax--[phone] documented in this encounter [facility] 01-03-2023 Miscellaneous Notes Formattin g of this note might be different from the original. Problem: Actual or potential alteration in health Goal: Absence of healthcare acquired conditions Outcome: Partially Met Goal: Knowledge of Interdisciplinary Plan of Care Outcome: Partially Met Goal: Knowledge of Enviroment Outcome: Partially Met Problem: Pain Goal: Manage acute pain Outcome: Partially Met Goal: Manage chronic pain Outcome: Partially Met Goal: Reduced pain sensation Outcome: Partially Met Goal: Achievement of comfort function goal Outcome: Partially Met Problem: Falls, Risk of Goal: Absence of falls Outcome: Partially Met Pt remains alert and oriented wnl to baseline. No s/s of distress noted, pain well managed with medication regiment. POC reviewed for verbalized understanding. All safety measures maintained within facility protocol. Problem: Actual or potential alteration in health Goal: Absence of healthcare acquired conditions Outcome: Partially Met Goal: Knowledge of Interdisciplinary Plan of Care Outcome: Partially Met Goal: Knowledge of Enviroment Outcome: Partially Met Problem: Pain Goal: Manage acute pain Outcome: Partially Met Goal: Manage chronic pain Outcome: Partially Met Goal: Reduced pain sensation Outcome: Partially Met Goal: Achievement of comfort function goal Outcome: Partially Met Problem: Falls, Risk of Goal: Absence of falls Outcome: Partially Met Patient had a rough night and was not awoken for PM exam. Per patient s daughter, pain is better controlled now with the re-addition of gabapentin. Patient ambulated the hallways earlier. On exam, patient resting comfortably, NG on LIWS with clear light brown output, abdomen distended. Urogynecology Sign-Off Discharge Medications: Per primary team Wound Care Instructions: Per primary team Home Care: Per primary team Activity: Per primary team Follow-up Imaging, Testing: Per primary team Follow-up Labs: Per primary team Follow-up Appointment(s): Encourage follow up with Urologist Milly Hartley in [place] to continue discussion of known diagnosis of prolapse. Most recent void 200mL, PVR 207 mL (consistent with previous). PVRs acceptable for post-operative period in setting of prolapse. Patient declines pessary for support and there is no indication at this time for intermittent straight cath. Encourage continued follow up with established urologist to discuss management of prolapse and associated symptoms upon discharge. Please reach out to the urogynecology team at any time if there are additional questions. Discussed with Dr. Sherice Batista DO PGY4 OCCUPATIONAL THERAPY VISIT VARIANCE NOTE Attempted to see patient at this time, but unable secondary to: Refused (Pt politely declined therapy). Will follow up as appropriate. PHYSICAL THERAPY VISIT VARIANCE NOTE Attempted to see patient at this time, but unable secondary to: Pt politely declined twice in the AM and PM to work with [employer]. . Will follow up as appropriate. Patient evaluated at bedside. Denies nausea or vomiting. Complaining of itchiness. She reports that she does not notice the difference that her NG is to gravity and not hooked to suction. Prior to exam she voided 450cc, with a post void residual of 300cc. Her abdominal exam is stable, softly distended, appropriately tender to palpation. NG in place to gravity bag with minimal output. Associated Problem(s): Complete uterovaginal prolapse Merlyn Perez is a 82 y.o. female with consult to gynecology for pelvic floor prolapse. Pelvic organ prolapse, chronic - Cervix to +2 on limited pelvic exam - CT scan with bladder distention, concern for prolapse - No SUSANNAH or evidence of post-renal obstruction - S/p trial of pessary for some time, patient not interested in trying again - Follows with Dr. Milly Hartley in [place], they had discussed surgical management before her current acute illness - Measuring PVRs: - voided 450cc, bladder scan 300cc - voided 150cc, bladder scan 128cc - AM PVR pending - Appreciate management of acute medical/surgical issues from all other teams Will follow up PVR this morning for more complete information. Can consider intermittent straight cath if PVR notably elevated. Patient will prefer follow up with Dr. Hartley if planning surgical intervention, if able. Likely would delay surgical intervention if able until her acute issues are resolved. Associated Problem(s): Back pain Reason For Hospitalization: ICD-10 M54.9 Merlyn Perez presented 12/17/2022 PHYSICAL THERAPY VISIT VARIANCE NOTE Attempted to see patient at this time, but unable secondary to: Patient Unavailable (comment) (patient in with another health care provider.). Will follow up as appropriate. Patient evaluated at bedside. She reports some pain from her PICC that was placed in the L arm but also in the R arm from the first attempt. She continues to have stable, crampy lower abdominal pain associated with bloating. Denies nausea or vomiting. Her mouth feels very dry and is tolerating ice chips. On exam, Vitals: BP (!) 178/68 (Patient Position: Lying) Pulse 99 Temp 97.9 F (36.6 C) (Oral) Resp 18 Ht 5' 3 Wt 68 kg (150 lb) SpO2 97% BMI 26.57 kg/m Alert and oriented. Eyes closed, Abdomen softly distended, appropriately tender. Non-peritoneal. NG with lite bilious output. - TPN - NG LIWS, measure output q8h, 1c ice chips per shift PHYSICAL THERAPY VISIT VARIANCE NOTE Attempted to see patient at this time, but unable secondary to: Patient Unavailable (comment) (Per RN, patient sleeping and daughter does not want her disturbed.). Will follow up as appropriate. Total Parenteral Nutrition (TPN) Assessment Service Line Ordering: Surgery Oncology IV access: PICC pending Drug/Food Allergies: Amlodipine Hospital Course: 82yo F admitted with recurrent RLQ back and abdominal pain. Imaging 12/17 with mass adjacent to distal small bowel and enlarged mediastinal LN. GI c/s and s/p c-scope 12/20, without mass or lesion. OR 12/23 for R hemicolectomy; final path pending. Post-op nausea and abdominal bloating. NGT: 510. KUB with concern for ileus vs pSBO. Currently NPO. Past Medical Hx/Nutrition Hx: Past Medical History: Diagnosis Date Hypertension Stroke (HCC) Ht: 63in Admit Wt: 68kg (12/17) IBW: 64kg (BMI 24.9) Body mass index is 26.57 kg/m . reflecting overweight Wt hx: Wt Readings from Last 5 Encounters: 12/17/22 68 kg (150 lb) Laboratory: Recent Labs 12/25/22 0702 12/26/22 0715 12/27/22 0715 NA 137 141 141 K 3.9 3.4* 3.3* BICARB 25 25 27 CL 103 108 106 GLUCOSE 145* 118* 111* BUN 11 10 5* CREATININE 0.53* 0.46* 0.41* MG 2.2 1.9 1.7 PHOS 3.6 2.6* 3.6 Medications: protonix IVF: D5LR @125ml/hr Indication for TPN: ileus vs pSBO; NPO/CLD x 7 days Estimated Energy Needs Total Energy Estimated Needs: 8974-6776 Method for Estimating Needs: 22-25 kcals/kg IBW (BMI 24.9: 64kg) Total Protein Estimated Needs: 76-96g Method for Estimating Needs: 1.2-1.5g/kg IBW (BMI 24.9: 64kg) Fluid Needs Total Fluid Estimated Needs: 8866-4625 Method for Estimating Needs: 22-25ml/kg IBW (BMI 24.9: 64kg) TPN recommendations: 50g AA, 150g Dextrose, 45g ILE at 50ml/hr. No insulin to be added initially. Tentative goal rate 4/4 of 80g AA, 240g Dextrose, 45g ILE at 70ml/hr (1586 kcals, 80g PRO). Shraddha Gomez RD, LD, [facility] Patient evaluated at bedside. In brif, 82yof with history CVA admitted with terminal ileum mass POD 3 s/p hand assisted extended R hemicolectomy with Dr. Deras. Recovery slowed by delay of bowel function. CTAP today some edematous bowel leading up to the ileocolonic anastomosis without pneumatosis or evidence of perforation, post-operative fluid. Patient overall feeling okay. Has been having some abdominal bloating that waxes and wanes. Did have a liquid bowel movement today. NGT with light bilious output. Labs reviewed, WBC 8.7 (19), Hgb 10.7 (13, 11.4), plt 182 (258). Lactate 1.5. Abdomen mildly distended but soft, appropriately tender to palpation. Suspect recovered delayed by ileus, Continue NGT decompression for tonight and continue to monitor. Dr. Briggs updated on CT scan and lab findings. Jake Pascual MD General Surgery PGY-2 Please contact surgical director international application packaging consultant 5PM-6AM and weekends at [phone] BLUE Pager - [phone] PSA called this RN to come to room. Pt was ambulating to bathroom and NG tube was dislodged. Pt has had multiple BM's over today and is not complaining of nausea. This RN spoke to evaluate if patient needs NG replaced. Dr Nieto stated hold off for now while he evaluates the chart. Brief Post Operative Note Patient Name: Merlyn Perez : 1940 (82 y.o.) Date of Service: 12/23/2022 CSN: [id number] Procedure(s): LAPAROSCOPIC RIGHT COLECTOMY Pre-Operative Diagnoses: * BOWEL OBSTRUCTION Post-Operative Diagnoses: Surgeon(s) and Role: * Kell Deras MD - Primary * Devon Varner MD - Resident - Assisting Anesthesiologist: Damon Ruiz MD Commission Auditor: Kirsten Mckeon RN Commission Auditor Relief: John Bess RN; Meghana Rodríguez RN Scrub Person: ST Daina Lab Associate: Isamar Mcintyre Float: Joan Robles RN Operative findings: R hemicolectomy Intra and immediate post-operative complications: none Type of anesthesia used: General Estimated blood loss: 25 mL Estimated urine output: 300 mL Specimen(s): ID Type Source Tests Collected by Time Destination A : right colectomy internal ileum Tissue Colon, Random TISSUE EXAM Kell Deras MD 12/23/2022 0947 Implant(s): * No implants in log * Drain(s): Urethral Catheter Non-latex;Double-lumen;Straight-tip 16 Fr. (Active) Wound(s): Wound 12/23/22 Trocar sites x 3, 1 is expanded for specimen removal Surgical Wound Abdomen Upper (Active) Wound Closure Surgical Adhesive;Sutures 12/17/22 0002 Devon Driscoll MD 12/23/2022 10:19 AM OPERATIVE REPORT Patient Name: Merlyn Perez : 1940 82 y.o. Date of Service: 12/23/2022 CSN: [id number] Procedure(s): Laparoscopic right colectomy with terminal ileal resection Omental flap Pre-Operative Diagnoses: BOWEL OBSTRUCTION Post-Operative Diagnoses: same Surgeon(s): Kell Deras MD Snow Fence Erector: Devon Driscoll MD PGY3 Anesthesiologist: Damon Ruiz MD Anesthesia type: general Estimate blood loss: 50cc Indications: 82-year-old female who was transferred to [facility] for evaluation given complaints of abdominal pain with distention and concern on CT scan for a terminal ileal mass with possible active extravasation. Upon arrival to [facility] she was found to be stable with no active signs of bleeding. She underwent work-up for evaluation of this mass including colonoscopy which did not reveal any intraluminal lesions but possibly some narrowing in the terminal ileum. She had a repeat CAT scan performed here with oral and IV contrast which demonstrated progression of contrast down to the terminal ileum with abrupt cut off adjacent to the site of the possible terminal ileal mass. She did have progression of contrast on follow-up KUB scans. Given her likely partial bowel obstruction in this area with concordant symptoms of abdominal pain with bloating and nausea with p.o. intake we discussed performing a right colectomy with terminal ileal resection to remove the terminal ileal lesion as well as the associated adenopathy noted within the mesentery of the ileocolic vessels. We discussed risk of surgery including bleeding, infection, anastomotic leak. She and her daughter expressed understanding and consent to proceed Findings: Approximately 5 cm proximal to the ileocecal valve there was noted to be an extraluminal mesenteric based lesion narrowing the terminal ileum. Intra and immediate post-operative complications: None Operative description: The patient was brought to the operating room placed on the operating room table in supine position. General anesthesia was induced and she was intubated uneventfully. The patient was then prepped and draped in a sterile fashion. A preoperative timeout was performed confirming correct patient as well as correct procedure and administration of preoperative antibiotics. The abdomen was then entered using a 5 mm Optiview trocar in the left mid abdomen. Pneumoperitoneum was obtained and a second 5 mm trocar was placed in the left upper quadrant. Original 5 mm trocar was then upsized to a 12 mm balloon trocar and a third trocar was placed in the suprapubic area. The right colon was then grasped and we mobilized the lateral attachments of the colon and carried our mobilization superiorly to the hepatic flexure. The hepatic flexure was mobilized and this was continued proximally taking down the proximal attachments to the transverse colon. We now turned our attention to the terminal ileum and mobilized lateral sidewall attachments in this area as well. Evaluation of the terminal ileum did reveal what appeared to be a mesenteric based lesion sitting approximately 5 cm proximal to the ileocecal valve. We now performed a medial to lateral mobilization of the right colon and the ileocolic vascular pedicle was identified circumferentially dissected around clipped using Hem-o-jesús clips and then transected using the LigaSure device. We mobilized the remaining right colon with care to identify the duodenum and preserve it. The omentum overlying the colon this area was then split and an omental pedicle flap was created to be used later to wrap our anastomosis. The proximal transverse colon then was transected using a purple Covidien staple load. The ascending colon was now completely free. We now turned our attention to the ileocolic vascular pedicle and identified the enlarged lymph nodes in this area. These were incorporated into our planned mesenteric resection. We chose a location for transection of the small bowel which would allow for complete resection of the enlarged lymph nodes and be proximal to the area of narrowing. The mesentery was then taken down up to the planned transection line using LigaSure device. The terminal ileum was transected using a purple Covidien staple load. Specimen was now free and it was mobilized and moved into the pelvis for future extraction. The proximal staple line of the small bowel was then brought up into the right upper quadrant and positioned adjacent to the transverse colon. Enterotomies were made in the transverse colon as well as in the small bowel and a [id number] ileocolic anastomosis was created using a purple Covidien staple load. The common enterotomy was then sewed closed using 3-0 V-Loc suture in a 2 layer fashion. The previously created omental flap was then wrapped around the anastomosis and secured in place with a stitch. The surgical bed was irrigated and all postsurgical fluid evacuated. The mesentery was evaluated and noted to be hemostatic. We now created a Pfannenstiel incision at the site of our suprapubic trocar. The specimen was then retrieved from the abdomen via this incision. The Pfannenstiel incision was then closed in 2 layers using 0 Vicryl suture for the posterior peritoneum and to reapproximate the rectus muscle. The anterior fascia which had been incised horizontally was closed using 0 PDS suture. The surgical bed was then irrigated out and closed using 3-0 Vicryl suture for the deep layers and 4-0 Monocryl for the skin. We evaluated our surgical site intra-abdominal one last time and noted to be hemostatic with no evidence of complication. A supra the abdomen did not reveal any retained foreign objects from the surgery. A preliminary count was noted to be correct for instruments, sponges as well as needles. We now removed the 12 mm trocar and closed the fascial defect using an 0 PDS suture and a suture passing device. The pneumoperitoneum was then completely released and the remaining trocars removed. Skin incisions were closed with 4-0 Monocryl and covered with skin glue as a dressing. A final count was performed and noted to be correct for instruments, sponges as well as needles. Disposition: Patient was extubated uneventfully and taken the postoperative care unit in stable condition to be readmitted to the floor. Kell Deras 12/23/2022 12:40 PM Associated Problem(s): Abdominal pain 82 y.o. 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 GI consulted due to abnormal imaging c/f mass near terminal ileum --early satiety, nausea, reflux and epigastric discomfort for the past few weeks --also w/ changes in bowel habits between constipation and diarrhea --CT abd/pelvis w/ IVC (12/16/2022): RLQ mass in distal small bowel w/ possible trace blood in lumen --no obvious signs of GI bleeding --hg stable at: 12.4; no leukocytosis --lactate: normal --on Plavix: last dose 12/17 --ok for ASA --planned for bowel prep today 12/19 --afebrile; VSS Recommendations/plans: 1) Clear liquid diet. GoLytely bowel prep. NPO except bowel prep after midnight. Planned for EGD and Colonoscopy on 12/20 2) Check CBC, BMP and PT/INR in AM 12/20 Images from the original note were not included. Neurology Sign-Off 12/17/2022 3:36 PM Outside MRI reviewed (see below). Very tiny stroke burden. No contraindication proceed with surgery at this time. Please restart anti-platelets, as able. Please re-consult, if questions. I spoke with the surgery resident. Pacheco Mejía MD, MSL, ABPN [facility] Neurohospitalist Dr Mejía requested MRI brain and CTA head/neck merged to [facility] from [facility]. Navigator called radiology at [place]. They will push films to [facility] in the next 15 minutes. 1515- Spoke / [facility] file room. Images have arrived from [place]. Tech will merge with Epic SUSAN. documented in this encounter [facility] 12-23-2022 History and physi kalen note INTERVAL HISTORY AND PHYSICAL Patient Name: Merlyn Perez Admit Date: [id number] MR #: [id number] : 1940 The H&P has been reviewed and the patient has been examined. I concur with the findings of the H&P. There are no significant changes. It is appropriate to proceed with the planned procedure. Kell Deras MD 12/23/2022 7:05 AM Source Note - Mary Villela MD - 12/17/2022 3:18 PM EDT [facility] History and Physical Note 12/17/22 Merlyn Perez 1940 [id number] Assessment/Plan: Merlyn Perez is a 82 y.o. 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 CXR without acute infiltrate. CTA C/A/P 12/17/22 with no PE, enlarged mediastinal LN with 5mm pulmonary nodule RLL and RLQ 1.7 x 1.6cm mass abbutting the distal small bowel. She was transferred to [facility] 12/17/2022 for surgical oncology and GI assessment. RLQ Abdominal Mass: Noted >1cm mass abutting distal small bowel. Characterized by CT at [facility]. May be causing obstruction periodically with the presenting abdominal pain. Scheduled Tylenol with PRN Morphine for pain control. Plan for EGD and colonoscopy for evaluation 12/20/22. Started bowel regimen with plan for Golytely prep 12/19/22. Enlarged Mediastinal Lymph Nodes: Noted on report at [facility], of unclear etiology. Concerning in setting of new mass and with 5mm RLL lung nodule as well. Pulmonology consulted for evaluation. Preoperative evaluation: Gideon Revised Cardiac Index Risk Factors: Stroke and High risk surgery . At home, patient able to complete > 4 METS as evidenced by ability to climb two flights of stairs without CP or dyspnea. Chronic medical conditions that increase perioperative risk not captured with RCRI include: heart valve disease mild AI . Most recent cardiac testing: TTE 11/28/22 normal systolic function, EF 65%, RVSP 40. After chart review and discussion with patient, qualifies for Intermediate Risk (2 RCRI with good functional status). No active CP complaints and good functional status, further cardiac testing will not reduce patients risk. Further cardiac testing will not reduce patients risk and okay to proceed without further testing. Final decision to take patient to OR left to risk/benefit decision making of surgical team. Recent CVA: Hospitalized 11/27/22 for acute b/l CVA. Held Plavix for workup of above, continue ASA when ok for surgery. Continued statin. HTN: Very poor control recently with need to increase BP meds. May partly be driven by recurrent abdominal pain. Continued home meds. Hyperglycemia: Recent A1c 5.5% 11/27/22. Likely reactive. Code status: FULL DVT Prophylaxis: Lovenox subcutaneous ppx Current living situation: Home Expected Disposition: Home Estimated discharge date: TBD Admitted with these risk variables:Hypokalemia and Metastatic Cancer. Please see assessment and plan for further details. Chief Complaint: Abdominal pain History of Present Illness: Patient reports that noted some upper abdominal pain. She went to the ER on 12/14/22 reporting dyspnea and generalized myalgias. She noted improvement after having a bowel movement. She then developed abdominal pain again on 12/16/22 with pain also noted over the mid chest and both flanks and into the back. No associated nausea this time or sweats, though temperature intolerance. She presented to the ED where she had a CT scan that revealed an abdominal mass. After her stroke she was placed on Plavix, Crestor and hydralazine. Family noted that she would get nauseous after each dose of hydralazine. Last dose of Plavix was 12/16/22 in the afternoon. Patient is new to me today. Reviewed prior records, including vitals, labs, pulse ox, ECG tracing, imaging report and film and outside hospital records. I spent 105 minutes reviewing [facility] records and directly assessing patient at bedside followed by formulation of medical plan. Past Medical, Surgical, Social, Family History: No past medical history on file. No past surgical history on file. Social History Socioeconomic History Marital status: No family history on file. Home Medications: No current outpatient medications on file as of 12/17/2022. Physical Exam: BP (!) 184/74 Pulse 91 Temp 97.6 F (36.4 C) Resp (!) 20 Ht 5' 3 Wt 68 kg (150 lb) SpO2 94% BMI 26.57 kg/m General: NAD Eyes: Anisocoria with right pupil dilated and less reactive than left pupil. Patient reports chronic. Reactive b/l, anicteric ENT: neck supple, no JVD appreciated Cardiovascular: Regular rate and rhythm Respiratory: Clear to auscultation b/l Gastrointestinal: Soft, non tender, hypoactive BS Genitourinary: no suprapubic tenderness Musculoskeletal: No edema Skin: warm, dry Neuro: Alert. Psych: Mood appropriate. Labs, Imaging, and Studies reviewed: Results from last 7 days Lab Units 12/17/22 1250 WBC K/mcL 5.25 HGB g/dL 11.9* HCT % 34.3* PLT K/mcL 165 Results from last 7 days Lab Units 12/17/22 1251 SODIUM mmol/L 139 POTASSIUM mmol/L 2.9* CHLORIDE mmol/L 101 BICARB mmol/L 29 BUN mg/dL 11 CREATININE mg/dL 0.56* EGFR mL/min/1.73 m2 92 GLUCOSE mg/dL 104* Results from last 7 days Lab Units 12/17/22 1251 ALT U/L 61* AST U/L 34 ALK PHOS U/L 103 BILIRUBIN TOTAL mg/dL 0.7 INTERVAL HISTORY AND PHYSICAL Patient Name: Merlyn Perez Admit Date: 3231029 MR #: [id number] : 1940 The H&P has been reviewed and the patient has been examined. I concur with the findings of the H&P. There are no significant changes. It is appropriate to proceed with the planned procedure. Storm Byers MD 12/20/2022 1:45 PM Source Note - Dario Henderson MD - 12/17/2022 4:53 PM EDT GASTROENTEROLOGY/HEPATOLOGY CONSULT NOTE 4 Patient Name: Merlyn Perez Admit Date: 3231029 Date of Consult: 12/17/22 MR #: [id number] : 1940 Physicians: Milo Hercules MD (Family); No ref. provider found (Referring) Consult Ordered By: Dr. St Assessment and Plan: The patient's imaging suggests an intra-abdominal mass, though it appears to be adjacent to the terminal ileum, and not originating from the bowel. Nonetheless, her UGI symptoms are concerning, so she can complete an EGD on Tuesday. In addition, she will complete a colonoscopy on Tuesday. I will start her on a bowel regimen today due to stool burden on imaging. She can have a regular diet through Tuesday with a clear liquid diet on Tuesday morning until her procedures are completed. Bowel preparation on Tuesday evening. Chief Complaint/Reason for Visit: Abnormal imaging History of Present Illness: Merlyn Perez is a 82 y.o. female with pmhx of HTN, HLD, GERD, and CVA who presents as a transfer from [place] for evaluation of abnormal imaging with c/f mass near terminal ileum. The patient reports developing early sateity, nausea, reflux, and epigastric discomfort after making medication adjustments to her anti-hypertensives. The patient reports she also had changes in bowel habits over the last few months as well with alterations between constipation and diarrhea. She denies any melena, hematochezia, weight loss, or dysphagia. The patient's only colonoscopy was 10 years ago. She has never undergone an upper endoscopy. GI Specific Family History: No significant family history of GI malignancy or disorder Social History Socioeconomic History Marital status: Allergy Information: I have reviewed the patient's allergies. Amlodipine Home Medications: No current outpatient medications on file as of 12/17/2022. Review of Systems: All remaining systems were reviewed and are negative except for those mentioned in the HPI Physical Examination: Vital Signs: Temp: [97.6 F (36.4 C)-98.2 F (36.8 C)] 97.6 F (36.4 C) Heart Rate: [74-93] 93 Resp: [18-20] 20 BP: (162-190)/(73-92) 190/83 GEN NAD HEENT anicteric sclerae CV rrr Pulm nonlabored breathing Abd: soft, nt, nd, bs present Ext: warm, no edema Neuro no asterixis Psych normal affect Laboratory and Additional Data Reviewed: Laboratory and Radiology Results from last 7 days Lab Units 12/17/22 1250 WBC K/mcL 5.25 HGB g/dL 11.9* HCT % 34.3* PLT K/mcL 165 Results from last 7 days Lab Units 12/17/22 1251 SODIUM mmol/L 139 POTASSIUM mmol/L 2.9* CHLORIDE mmol/L 101 BUN mg/dL 11 CREATININE mg/dL 0.56* TOTAL PROTEIN g/dL 6.9 BILIRUBIN TOTAL mg/dL 0.7 ALK PHOS U/L 103 ALT U/L 61* AST U/L 34 GLUCOSE mg/dL 104* [facility] Henderson [facility] and Physical Note 12/17/22 Merlyn Perez 1940 [id number] Assessment/Plan: Merlyn Perez is a 82 y.o. 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 CXR without acute infiltrate. CTA C/A/P 12/17/22 with no PE, enlarged mediastinal LN with 5mm pulmonary nodule RLL and RLQ 1.7 x 1.6cm mass abbutting the distal small bowel. She was transferred to [facility] 12/17/2022 for surgical oncology and GI assessment. RLQ Abdominal Mass: Noted >1cm mass abutting distal small bowel. Characterized by CT at [facility]. May be causing obstruction periodically with the presenting abdominal pain. Scheduled Tylenol with PRN Morphine for pain control. Plan for EGD and colonoscopy for evaluation 12/20/22. Started bowel regimen with plan for Golytely prep 12/19/22. Enlarged Mediastinal Lymph Nodes: Noted on report at [facility], of unclear etiology. Concerning in setting of new mass and with 5mm RLL lung nodule as well. Pulmonology consulted for evaluation. Preoperative evaluation: Gideon Revised Cardiac Index Risk Factors: Stroke and High risk surgery . At home, patient able to complete > 4 METS as evidenced by ability to climb two flights of stairs without CP or dyspnea. Chronic medical conditions that increase perioperative risk not captured with RCRI include: heart valve disease mild AI . Most recent cardiac testing: TTE 11/28/22 normal systolic function, EF 65%, RVSP 40. After chart review and discussion with patient, qualifies for Intermediate Risk (2 RCRI with good functional status). No active CP complaints and good functional status, further cardiac testing will not reduce patients risk. Further cardiac testing will not reduce patients risk and okay to proceed without further testing. Final decision to take patient to OR left to risk/benefit decision making of surgical team. Recent CVA: Hospitalized 11/27/22 for acute b/l CVA. Held Plavix for workup of above, continue ASA when ok for surgery. Continued statin. HTN: Very poor control recently with need to increase BP meds. May partly be driven by recurrent abdominal pain. Continued home meds. Hyperglycemia: Recent A1c 5.5% 11/27/22. Likely reactive. Code status: FULL DVT Prophylaxis: Lovenox subcutaneous ppx Current living situation: Home Expected Disposition: Home Estimated discharge date: TBD Admitted with these risk variables:Hypokalemia and Metastatic Cancer. Please see assessment and plan for further details. Chief Complaint: Abdominal pain History of Present Illness: Patient reports that noted some upper abdominal pain. She went to the ER on 12/14/22 reporting dyspnea and generalized myalgias. She noted improvement after having a bowel movement. She then developed abdominal pain again on 12/16/22 with pain also noted over the mid chest and both flanks and into the back. No associated nausea this time or sweats, though temperature intolerance. She presented to the ED where she had a CT scan that revealed an abdominal mass. After her stroke she was placed on Plavix, Crestor and hydralazine. Family noted that she would get nauseous after each dose of hydralazine. Last dose of Plavix was 12/16/22 in the afternoon. Patient is new to me today. Reviewed prior records, including vitals, labs, pulse ox, ECG tracing, imaging report and film and outside hospital records. I spent 105 minutes reviewing [facility] records and directly assessing patient at bedside followed by formulation of medical plan. Past Medical, Surgical, Social, Family History: No past medical history on file. No past surgical history on file. Social History Socioeconomic History Marital status: No family history on file. Home Medications: No current outpatient medications on file as of 12/17/2022. Physical Exam: BP (!) 184/74 Pulse 91 Temp 97.6 F (36.4 C) Resp (!) 20 Ht 5' 3 Wt 68 kg (150 lb) SpO2 94% BMI 26.57 kg/m General: NAD Eyes: Anisocoria with right pupil dilated and less reactive than left pupil. Patient reports chronic. Reactive b/l, anicteric ENT: neck supple, no JVD appreciated Cardiovascular: Regular rate and rhythm Respiratory: Clear to auscultation b/l Gastrointestinal: Soft, non tender, hypoactive BS Genitourinary: no suprapubic tenderness Musculoskeletal: No edema Skin: warm, dry Neuro: Alert. Psych: Mood appropriate. Labs, Imaging, and Studies reviewed: Results from last 7 days Lab Units 12/17/22 1250 WBC K/mcL 5.25 HGB g/dL 11.9* HCT % 34.3* PLT K/mcL 165 Results from last 7 days Lab Units 12/17/22 1251 SODIUM mmol/L 139 POTASSIUM mmol/L 2.9* CHLORIDE mmol/L 101 BICARB mmol/L 29 BUN mg/dL 11 CREATININE mg/dL 0.56* EGFR mL/min/1.73 m2 92 GLUCOSE mg/dL 104* Results from last 7 days Lab Units 12/17/22 1251 ALT U/L 61* AST U/L 34 ALK PHOS U/L 103 BILIRUBIN TOTAL mg/dL 0.7 documented in this encounter [facility] 12-20-[address] Byers Aware of patient c/o stomach and back pain no order for now . Floor nurse updated patient status re. pain Report given to floor nurse Griselda Barraza Sedation and monitoring provided by Dr. Aaron. See anesthesia note for vitals, assessments, and medications given. documented in this encounter [facility] 12-17-2022 Emergency departm ent Note Pt BP is 190/83, this RN contacted Mary Panda MD about BP and HR, states That BP is fine, She looks fine This RN contacted Mary Panda MD about BP of 190/83 after labetalol. states That BP looks fine. She looks fine. ED PROVIDER NOTE [facility] EMERGENCY DEPARTMENT NAME: Merlyn Perez AGE: 82 y.o. : 1940 VISIT DATE: 12/17/2022 CSN: [id number] PCP: Milo Hercules MD Chief Complaint Patient presents with Abdominal Pain HPI Patient is an 82-year-old female with history as listed below who presents for transfer for surgical oncology. She was found to have an abdominal mass after presenting to outlying facility for right lower back pain. Mass was seen next to terminal ileum on CT. Patient has had intermittent abdominal distention. She recently has been started on medications for recent stroke but has not taken any today due to side effects. She was given morphine, Toradol, fentanyl and Tylenol and endorses pain is controlled at this time. No past medical history on file. No past surgical history on file. No family history on file. Social History Socioeconomic History Marital status: No current outpatient medications on file prior to encounter. Not on File Review of Systems Constitutional: Negative for chills, fatigue and fever. HENT: Negative for facial swelling, rhinorrhea and trouble swallowing. Eyes: Negative for pain and redness. Respiratory: Negative for cough and shortness of breath. Cardiovascular: Negative for chest pain and leg swelling. Gastrointestinal: Positive for abdominal distention and abdominal pain. Negative for vomiting. Genitourinary: Negative for decreased urine volume and urgency. Musculoskeletal: Positive for back pain. Negative for gait problem. Skin: Negative for color change and pallor. Neurological: Positive for speech difficulty (ongoing from prior stroke). Negative for numbness. Hematological: Negative for adenopathy. Does not bruise/bleed easily. Psychiatric/Behavioral: Negative for self-injury and suicidal ideas. Patient Vitals for the past 24 hrs: BP Temp Pulse Resp SpO2 Height Weight 12/17/22 1207 (!) 182/92 97.6 F (36.4 C) 80 (!) 20 97 % 5' 3 68 kg (150 lb) Physical Exam Vitals and nursing note reviewed. Constitutional: Appearance: She is well-developed. HENT: Head: Normocephalic and atraumatic. Eyes: Pupils: Pupils are equal, round, and reactive to light. Cardiovascular: Rate and Rhythm: Normal rate and regular rhythm. Musculoskeletal: General: No deformity. Cervical back: Normal range of motion and neck supple. Pulmonary: Effort: Pulmonary effort is normal. No respiratory distress. Abdominal: General: There is no distension. Palpations: Abdomen is soft. Tenderness: There is abdominal tenderness in the right lower quadrant, epigastric area, periumbilical area and suprapubic area. There is no right CVA tenderness, left CVA tenderness, guarding or rebound. Skin: General: Skin is warm and dry. Neurological: Mental Status: She is alert. Cranial Nerves: No cranial nerve deficit (grossly intact). Laboratory & Radiographic Imaging (if done): No results found for this visit on 12/17/22. XR Comparison Import Final Result XR Comparison Import Final Result CT Comparison Import Final Result Procedures Medical Decision Making Assessment: Merlyn Perez is a 82 y.o. female who presents for evaluation of abdominal pain Differential Diagnosis included but not limited to: malignancy, appendicitis, bowel obstruction, UTI/Pyelonephritis Plan: Labs Analgesia prn Surgical consult ED Course/MDM: Patient arrived hypertensive but otherwise hemodynamically stable and in no acute distress. Patient's previous imaging and studies reviewed. Appendicitis not likely based on lack of RLQ rebound tenderness, physical exam. Cholecystitis not likely based on lack of RUQ pain, negative mendiola. UTI/pyelonephritis/nephrolithiasis not likely based on lack of urinalysis indicators and physical exam. Mesenteric Ischemia unlikely given no risk factors, non-toxic appearing, pain not out of proportion to exam, no other signs of emboli. Aortic pathology unlikely given history, non-toxic appearance, no pulsatile abdominal mass, no associated chest pain or neurologic complaints. Anticipate admit to surgical oncology Amount and/or Complexity of Data Reviewed Independent Historian: caregiver Details: daughter provides information External Data Reviewed: notes. Details: [facility] Medical Records Department [address] [place] [address] Emergency Department Summary 12/16/22 MR#: [id number] Acct: [id number] Name: MERLYN PEREZ Rep #: [id number] : 1940 82 From: Geraldo Medina DO PCP: Dr. Milo Hercules MD Status:DEP ER Location: ED HPI History of Present Illness Chief Complaint: Chest Pain Narrative Narrative: 82-year-old female presenting with epigastric pain/back pain. It does radiate somewhat into the chest. Patient states this started overnight. She was seen in the ER a few days ago for similar symptoms. Her work-up was normal. At this point it was presumed that her hydralazine was causing irritation to the stomach and this was held. Patient said similar symptoms last night even though she has not taken hydralazine. She notes that her blood pressure has been a little higher because she is not taking it. She states that Dr. Hercules saw her in follow-up and has her on atenolol. Since she had recurrent symptoms she was referred back to the ER. Patient reports to me that she had Adam Max yesterday in the middle of the day for lunch. She states it was chicken pot pie. She states her daughter made her some past but did not want to eat the red sauce because her stomach was upset so she opted for a tomato and some barbecue potato chips. She woke up in the night with epigastric pain again similar to before. Patient is not on a PPI or anything that would help acid reflux/GERD/gastritis. [facility] Medical History Anxiety Anxiety Asthma Depression Depression Dysarthria Encephalitis Facial droop HTN (hypertension) Hypertension Insomnia Non-smoker Osteoporosis Osteoporosis Uterine prolapse Home Medications aspirin 81 mg chewable tablet (Aspirin Childrens) 81 mg PO DAILY heart health 11/27/22 [History Last Taken 11/27/22 10:00] calcium carbonate 600 mg-vitamin D3 5 mcg (200 unit) capsule (Calcium 600 + D(3)) 1 cap PO DAILY supplement 11/27/22 [History Last Taken 11/27/22 10:00] furosemide 20 mg tablet 20 mg PO DAILY diuretic 11/27/22 [History Last Taken 11/27/22 10:00] lisinopril 20 mg tablet 20 mg PO BID blood pressure 11/27/22 [History Last Taken 11/27/22 10:00] atenolol 50 mg tablet 75 mg PO DAILY bp #30 tabs 11/29/22 [Rx Last Taken Unknown] clopidogrel 75 mg tablet 75 mg PO DAILY #30 tabs 11/29/22 [Rx Last Taken Unknown] hydralazine 50 mg tablet 50 mg PO TID #90 tabs 11/29/22 [Rx Last Taken Unknown] sennosides 8.6 mg-docusate sodium 50 mg tablet (Stool Softener-Stimulant Laxative) 2 tab PO BID PRN PRN Constipation #0 tabs 11/29/22 [Rx Last Taken Unknown] omeprazole 40 mg capsule,delayed release 40 mg PO DAILY #30 caps 12/16/22 [Rx Last Taken Unknown] Allergy/AdvReac Type Severity Reaction Status Date / Time amlodipine AdvReac Intermediate Other Verified 11/27/22 17:24 Family History Other Diabetes Hypertension Surgical History History of cholecystectomy Social History Smoking Status: Never smoker alcohol intake: never substance use type: does not use ROS ROS ED Constitutional Constitutional ED: Denies chills or fever(s) Eyes Eyes: Denies blurry vision or change in vision ENT ENT ED: Denies rhinorrhea or sore throat Cardiovascular Cardiovascular: Reports as per HPI Respiratory/Chest Respiratory/Chest: Denies cough or dyspnea Gastrointestinal Gastrointestinal: Reports abdominal pain, nausea and other Details: Epigastric pain Genitourinary Genitourinary ED: Denies dysuria or hematuria Musculoskeletal Musculoskeletal: Denies arthralgias or back pain Integumentary Denies abscess or Abrasions Neurologic Neurologic: Denies headache(s) or paresthesias Psychiatric Psychiatric: Denies anxiety or depression EXAM Physical Exam Const Vital Signs: 12/16/22 09:45 12/16/22 10:27 12/16/22 10:27 Temperature 97.7 F L Temperature Source Temporal Pulse Rate 88 Respiratory Rate 22 H Respiratory Effort Normal Non-Labored Blood Pressure 189/92 H Blood Pressure Mean 124 Pulse Ox 98 Oxygen Delivery Method Room Air Room Air 12/16/22 10:42 Temperature Temperature Source Pulse Rate 91 Respiratory Rate 16 Respiratory Effort Blood Pressure 164/107 H Blood Pressure Mean 126 Pulse Ox 97 Oxygen Delivery Method Room Air Positive well nourished General Appearance ED: NAD HEENT Reports moist mucous membranes and dry mucous membranes normocephalic and atraumatic Mouth ED: Yes dry mucous membranes Mouth: dry mucous membranes Eyes PERRL and EOMs intact bilaterally Neck no lymphaden (more content not included)... Labs: ordered. Decision-making details documented in ED Course. Discussion of management or test interpretation with external provider(s): Surgery to see and evaluate Risk Decision regarding hospitalization. The patient has been informed that they may have pre-hypertension or hypertension based on a blood pressure reading in the Emergency Department. I recommend that the patient call the primary care provider listed on their discharge instructions or a physician of their choice as soon as possible to arrange follow-up in the next 4 weeks for further evaluation of possible pre-hypertension or hypertension. . Clinical Impression: 1. Abdominal pain, unspecified abdominal location 2. Abdominal mass, unspecified abdominal location ED Disposition ED Disposition Hospitalize Condition -- Comment Phone call required?: No Follow-up Information Follow-up information has not been specified. Contact information for after-discharge care Follow-up information has not been specified. 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 documented in this encounter [facility] Summary Purpose Family History No Family History Records FoundNo Family History Records FoundNo Family History Records FoundNo Family History Records Found Advance Directives No Advanced Directives Records FoundLatest Code Status on File Code Status Date Activated Date Inactivated Comments Full Code 12/17/2022 6:11 PM 01/07/2023 7:42 PM Code Status History Code Status Date Activated Date Inactivated Comments Full Code - Unverified 12/17/2022 3:06 PM 12/17/2022 6:1 0 PM Latest Code Status on File Code Status Date Activated Date Inactivated Comments Full Code 12/17/2022 6:11 PM 01/07/2023 7:42 PM Code Status History Code Status Date Activated Date Inactivated Comments Full Code - Unverified 12/17/2022 3:06 PM 12/17/2022 6:1 0 PM Reason for Referral Specialty Diagnoses / Procedures Referred By Carina gomez Referred To Contact Continuity of Care Diagnoses Abdominal pain, unspecified abdominal location Abdominal mass, unspecified abdominal location Pulmonary nodule Colonic mass Yayo Landry MD [address] [facility] [address] [place] [id number] Referral ID Status Reason Start Date Expiration Date Visits Requested Visits Authorized [id number] Authorized Specialty Services Required/Pat ient's Best Interest 12/27/2022 12/27/2023 1 1 Specialty Diagnoses / Procedures Referred By Carina gomez Referred To Contact Radiology Diagnoses Pulmonary nodule Procedures CT Chest Without Contrast Trenton Porter MD [address] [place] [address] [address] [place] [address] Referral ID Status Reason Start Date Expiration Date V isits Requested Visits Authorized [id number] New Request 03/22/2023 03/21/2024 1 1 Additional Source Comments INFORMATION SOURCE (unrecogn ized section and content) DATE CREATED AUTHOR AUTHOR'S ORGANIZ ATION 08/06/2020 [facility] DATE CREATED AUTHOR AUTHOR'S ORGANIZ ATION 03/01/2022 [facility] DATE CREATED AUTHOR AUTHOR'S ORGANIZ ATION 07/23/[address] [facility] Reason for Visit (unrecogniz ed section and content) Specialty Diagnoses / Procedures Referred By Contac t Referred To Contact Diagnoses Colonic mass Abd Mass Referral ID Status Reason Start Date Expiration Date Visits Re quested Visits Authorized [id number] 1 1 Reason Comments Post-op Scheduled Active and Recently Administ ered Medications (unrecognized section and content) Continuous Medication Order 01/05/2023 01/06/2023 01/07/2023 Adult Cyclic TPN () Intravenous, at 76-153 mL/hr, Cyclic TPN - see admin instructions, Starting on Tue01/04/23 at 2200, For 24 hours, Infuse via Central Line ONLY! Cyclic parenteral nutrition over 12 hours daily. Total Volume 1680 ml. Infuse with 1.2 Micron Filter Start rate at 76 mL/hr for 1 hours. Increase rate to 153 mL/hr for 10 hours. Decrease rate to 76 mL/hr for 1 hours, then stop. 0258 (Rate/Dose Verify - Provider: Fatou Paris RN)0330 (Rate/Dose Verify - Provider: Fatou Paris RN)0614 (Rate/Dose Verify - Provider: Fatou Paris RN)0909 (Rate/Dose Change - Provider: Ana Bowman, RN)1009 (Stopped - Provider: Ana Bowman, RN) PRN Medication Order 01/05/2023 01/06/2023 01/07/2023 acetaminophen (TYLENOL) tablet 650 mg 650 mg, Oral, Every 4 hours PRN, headaches, fever 100.4 F or greater, mild pain, Starting on Tue01/03/23 at 0900 1211 (Not Given - Provider: Ana Bowman, NORMA - Reason: Patient/family refused) alteplase (CATH LULA) injection 2 mg 2 mg, Other, As needed, occluded PICC, Starting on Tue12/27/22 at 1527, Use for occlusion or absence of blood return, unless allergy or infected line. Assess catheter function 30 minutes after instillation. Repeat 2 mg x 1 dose if no blood return obtained after 120 minutes of dwell time. If medication has not yet been reconstituted RECONSTITUTE ALTEPLASE (CATHFLO) INJ WITH 2.2 ML OF STERILE WATER FOR INJ FOR CATHETER CLEARANCE ONLY aluminum-magnesium hydroxide-simethicone (MAALOX PLUS) 200-200-20 mg/5 mL suspension 30 mL 30 mL, Oral, Every 6 hours PRN, heartburn, cramping, Starting on Tue12/19/22 at 0343 benzonatate (TESSALON) capsule 100 mg 100 mg, Oral, 3 times daily PRN, cough, Starting on Tue12/21/22 at 1515, DO NOT CRUSH OR CHEW. 0027 (Given - Provider: Fatou Paris RN)1439 (Given - Provider: Ana Bowman, NORMA) 1717 (Given - Provider: Mary Gómez, NORMA)2317 (Given - Provider: Mimi Fish, RN) diphenhydrAMINE-zinc acetate cream Topical, 3 times daily PRN, itching, Starting on Tue12/21/22 at 1300, Apply to rash on (ask patient) guaiFENesin (MUCINEX) 12 hr tablet 600 mg 600 mg, Oral, Every 12 hours PRN, other, Cough, Starting on Tue12/22/22 at 0523, DO NOT CRUSH OR CHEW. 0027 (Given - Provider: Fatou Paris RN)1440 (Given - Provider: Ana Bowman, NORMA) 0313 (Return to Cabinet - Provider: Fatou Paris, NORMA)0507 (Given - Provider: Fatou Paris RN)2317 (Given - Provider: Mimi Fish, NORMA) hydrALAZINE (APRESOLINE) injection 10 mg 10 mg, Intravenous, Every 4 hours PRN, SBP > 180, Starting on Tue12/27/22 at 0658 HYDROcodone-acetaminophen (NORCO) 5-325 mg per tablet 1 tablet 1 tablet, Oral, Every 4 hours PRN, moderate to severe pain, caution sedation, Starting on 01/03/23 at 1005 0324 (Given - Provider: Fatou Pairs, NORMA)0827 (Given - Provider: Ana Bowman, RN)1420 (Canceled Entry - Provider: Ana Bowman, RN)1429 (Given - Provider: Ana Bowman, RN)2145 (Given - Provider: Fatou Paris, RN) 0313 (Return to Cabinet - Provider: Fatou Paris RN)0507 (Given - Provider: Fatou Paris RN)1156 (Given - Provider: Mary Gómez, RN)1716 (Given - Provider: Mary Gómez, RN)2312 (Given - Provider: Mimi Fish, RN) 1218 (Given - Provider: Mary Gómez, NORMA) melatonin Tab 5 mg 5 mg, Oral, Nightly PRN, For insomnia, Starting on 12/25/22 at 2022 2331 (Given - Provider: Fatou Paris RN) 2312 (Given - Provider: Mmii Fish RN) naloxone (NARCAN) injection 0.1 mg(Linked Group 2) 0.1 mg, Intravenous, As needed, opioid reversal, For respiratory rate less than or equal to 8 per minute., Starting on 12/18/22 at 0102, Mix nalOXone (NARCAN) 0.4 mg (1mL) with 9 mL of Normal Saline to total 10 mL. Administer 0.1 mg (2.5mL) IV Push every 2 minutes until respiratory rate is 10 or greater. naloxone (NARCAN) injection 0.4 mg(Linked Group 2) 0.4 mg, Intravenous, As needed, opioid reversal, patient is pulseless, breathless, and unresponsive, Starting on 12/18/22 at 0102, Call a code first, then administer naloxone dose undiluted IV Push over 30 seconds. ondansetron (ZOFRAN) injection 4 mg(Linked Group 3) 4 mg, Intravenous, Every 6 hours PRN, nausea, vomiting, Starting on Tue12/17/22 at 1509, Use oral route first, if tolerated. ondansetron (ZOFRAN-ODT) disintegrating tablet 4 mg(Linked Group 3) 4 mg, Oral, Every 6 hours PRN, nausea, vomiting, Starting on Tue12/17/22 at 1509, Use oral route first, if tolerated. Formulation requires tablet remain in sealed package until immediately prior to dose being administered. simethicone (MYLICON) 40 mg/0.6 mL drops 80 mg (CANCELED) 80 mg, Oral, Every 6 hours PRN, flatulence, Starting on Tue12/19/22 at 0938, For 249 days 0026 (Given - Provider: Fatou Paris, NORMA)0608 (Given - Provider: Fatou Paris RN) sodium chloride (PF) (NS) flush 10-20 mL 10-20 mL, Intracatheter, As needed, line care, Flush PICC with 10ml before and after each use, and with 20ml after blood draws, transfusions, and TPN., Starting on Tue12/27/22 at 1527 sodium chloride (PF) (NS) flush 5 mL(Linked Group 1) 5 mL, Intravenous, As needed, line care, Starting on Tue12/17/22 at 1509 sodium chloride 0.9% (NS)(Linked Group 1) 0-150 mL/hr, Intravenous, As needed, To flush line after IV infusions when no maintenance IV ordered or a compatibility issue. Infuse 20ml at the same rate as the secondary infusion, Starting on Tue12/17/22 at 1509, Run as Primary IV. NOT intended for KVO. 1408 (Stopped - Provider: Mary Gómez RN) Linked Groups Order Group 1: Saline lock IV (CANCELED) Routine, Continuous, Starting on Tue12/17/22 at 1510, Until Specified And sodium chloride (PF) (NS) flush 5 mLJump to med 5 mL, Intravenous, As needed, line care, Starting on Tue12/17/22 at 1509 And sodium chloride (PF) (NS) flush 5 mLJump to med 5 mL, Intravenous, Every 8 hours scheduled, First dose on Tue12/17/22 at 1800
Saline lock
And sodium chloride 0.9% (NS)Jump to med 0-150 mL/hr, Intravenous, As needed, To flush line after IV infusions when no maintenance IV ordered or a compatibility issue. Infuse 20ml at the same rate as the secondary infusion, Starting on Tue12/17/22 at 1509
Run as Primary IV. NOT intended for KVO.
Group 2: naloxone (NARCAN) injection 0.1 mgJump to med 0.1 mg, Intravenous, As needed, opioid reversal, For respiratory rate less than or equal to 8 per minute., Starting on 12/18/22 at 0102
Mix nalOXone (NARCAN) 0.4 mg (1mL) with 9 mL of Normal Saline to total 10 mL. Administer 0.1 mg (2.5mL) IV Push every 2 minutes until respiratory rate is 10 or greater.
And Notify physician (CANCELED) STAT, Until discontinued, Starting on 12/18/22 at 0103, Until Specified
Respiratory rate less than: 8
For respiratory rate less than or equal to 8, notify physician and/or appropriate staff for additional orders. And naloxone (NARCAN) injection 0.4 mgJump to med 0.4 mg, Intravenous, As needed, opioid reversal, patient is pulseless, breathless, and unresponsive, Starting on 12/18/22 at 0102
Call a code first, then administer naloxone dose undiluted IV Push over 30 seconds.
Group 3: ondansetron (ZOFRAN-ODT) disintegrating tablet 4 mgJump to med 4 mg, Oral, Every 6 hours PRN, nausea, vomiting, Starting on Tue12/17/22 at 1509
Use oral route first, if tolerated. Formulation requires tablet remain in sealed package until immediately prior to dose being administered.
Or ondansetron (ZOFRAN) injection 4 mgJump to med 4 mg, Intravenous, Every 6 hours PRN, nausea, vomiting, Starting on Tue12/17/22 at 1509
Use oral route first, if tolerated.
Care Teams (unrecognized sec tion and content) Pulley Man Relationship Specialty Start Date End Date Milo Hercules MD [address] [address] PCP - General Endocrinology/Metabolism 12/17/22 FOR RECORDS PERTAINING TO PATIENTS WHO ARE OR HAVE BEEN ENROLLED IN A CHEMICAL DEPENDENCY/SUBSTANCEABUSE PROGRAM, SOME INFORMATION MAY BE OMITTED. This clinical summary was aggregated from multiple sources. Caution should be exercised in using it in the provision of clinical care. This summary normalizes information from multiple sources, and as a consequence, information in this document may materially change the coding, format and clinical context of patient data. In addition, data may be omitted in some cases. CLINICAL DECISIONS SHOULD BE BASED ON THE PRIMARY CLINICAL RECORDS. [facility] provides no warranty or guarantee of the accuracy or completeness of information in this document.
[2023-10-07 15:37] LABS: Absolute Lymphocyte Count 0.99 X10^3/uL (0.83-4.51); Absolute Neutrophil Count 3.4 X10^3/uL (2.0-7.7); Basophil# 0.08 X10^3/uL; Basophil% 1.6 % (0-1); Eosinophil# 0.11 X10^3/uL; Eosinophils% 2.1 % (0-5); Hematocrit 42.1 % (37-47); Hemoglobin 13.6 g/dL (12.0-15.0); Lymphocyte # 0.99 X10^3/ul (0.83-4.51); Lymphocyte % 19.3 % (19-41); Mean Corp Hgb Conc 32.3 g/dL (32-36); Mean Corpuscular Hgb 30.8 pg (27.0-32.0); Mean Corpuscular Volume 95.5 fL (81-99); Mean Platelet Vol. 9.7 fl (6.2-12.0); Monocyte# 0.46 X10^3/uL; NRBC Flagged by Analyzer 0 % (0-5); Neutrophil # 3.44 X10^3/uL (2.7-7.7); Platelet Count 167 K/mm3 (150-450); RBC Distribution Width CV 12.9 % (11.6-14.6); RBC Distribution Width SD 45.6 fl (35.1-43.9); Red Blood Count 4.41 M/mm3 (4.2-5.4); White Blood Count 5.1 K/mm3 (4.4-11.0)
[2023-10-07 16:00] LABS: Vitamin D,25 Hydroxy 50.9 ng/mL
[2023-10-07 16:01] LABS: Hemoglobin A1c 5.4 % (3.8-5.6)
[2023-10-07 16:19] LABS: ALB/GLOB Ratio 1.1 RATIO (0.9-2.4); AST(SGOT) 21 U/L (15-37); Alanine Aminotransfer ALT/SGPT 26 U/L (13-56); Albumin, Serum 3.8 g/dL (3.2-5.0); Alkaline Phosphatase 85 U/L (45-117); Anion Gap 6 (5-15); BUN 18 mg/dL (7-18); BUN/Creat Ratio 25.9 RATIO (10-20); Calcium,Total 9.4 mg/dL (8.5-10.1); Chloride 105 mmol/L (98-107); Cholesterol 146 mg/dL (200); EST Glomerular Filtration Rate 86 mL/min (>60); Est Glom Filt Rate - Afr Amer 104 mL/min (>60); Globulin 3.6 g/dL (2.2-4.2); Glucose 97 mg/dL (74-106); High Density Lipoprotein 41 mg/dL; Magnesium 2.5 mg/dL (1.6-2.6); Potassium 3.6 mmol/L (3.5-5.1); Protein, Total 7.4 g/dL (6.4-8.2); Sodium Level 141 mmol/L (136-145); Thyroid Stim Hormone (TSH) 1.38 uIU/mL (0.358-3.74); Triglycerides 120 mg/dL; Very Low Density Lipoprotein 24 mg/dL (5-40)
== END | disposition home or self-care (01) ==
LOC: MFPLAB 12:05
PROVIDERS: PCP Family Medicine; Visit Provider Family Medicine
DX: I10 Essential (primary) hypertension (principal); R73.02 Impaired glucose tolerance (oral); E55.9 Vitamin D deficiency, unspecified
CPT/HCPCS: 36415; 80053; 80061; 82306; 83036; 83735; 84443; 85025

== ENCOUNTER → 2023-10-12 | Outpatient (CLI) | payer MEDICARE, OTHER, SELFPAY ==
[2023-10-12 16:47] LABS: Bacteria 0 SEEN /hpf (None Seen); Mucous, Urine 0 SEEN /hpf (<or=2+)
--- OUTSIDE RECORDS SUMMARY | 2023-10-12 17:06 | XMS RPT_ITS | CCD ---
Author Name Unknown Address [address] [place] [address] Organization [facility] Care Team Providers Care Machine Plate Stacker Name Role Phone Leonardo Sheehan Unavailable Unavailable Leonardo Sheehan Unavailable Unavailable Diomedes LANDAVERDE, Milo Primary Care Provider Milo Hercules MD Primary Care Provider MAGDALENA MANN Attending Unavaila ble SYSTEM, PROVIDER NOT IN Referring Unavaila ble MARY VILLELA Admitting Unavaila ble KELL DERAS Consulting Unavailab MILO Zaidi Primary Care Unavailable [facility] Consulting Unavailable [facility] Consulting Unavailable BOOK, CLARISSA VALLADARES Consulting Unavailable Allergies Allergy Classification Reported Allergen(s) Allergy Type Date of Onset Reaction(s) Facility (3 sources) amLODIPine; Translations: [AMLODIPINE] Drug Allergy 12-17-2022 Other (See Comments) [facility] Medications Current Medications Medication Drug Class(es) Dates [...] 25.08 kg/m2 Kell Deras MD Work Phone: [facility] 01-21-2023 11:28-0400 Body temperature 97.5 [degF] Kell Deras MD Work Phone: [facility] 01-21-2023 11:28-0400 Body weight 64.23 kg Kell Deras MD Work Phone: [facility] 01-21-2023 11:28-0400 Diastolic blood pressure 81 mm[Hg] Kell Deras MD Work Phone: [facility] 01-21-2023 11:28-0400 Heart rate 89 /min Kell Deras MD Work Phone: [facility] 01-21-2023 11:28-0400 Systolic blood pressure 133 mm[Hg] Kell Mckay Work Phone: [facility] 01-07-2023 14:28-0400 Body temperature 97.81 [degF] Martell Braswell MD Work Phone: [facility] 01-07-2023 14:28-0400 Diastolic blood pressure 74 mm[Hg] Martell Braswell MD Work Phone: [facility] 01-07-2023 14:28-0400 Heart rate 90 /min Martell Braswell MD Work Phone: [facility] 01-07-2023 14:28-0400 Respiratory rate 16 /min Martell Braswell MD Work Phone: [facility] 01-07-2023 14:28-0400 SaO2% (BldA) [Mass fraction] 98 % Martell Braswell MD Work Phone: [facility] 01-07-2023 14:28-0400 Systolic blood pressure 133 mm[Hg] Martell Braswell MD Work Phone: [facility] 01-07-2023 08:57-0400 Body mass index (BMI) [Ratio] 24.29 kg/m2 Martell Braswell MD Work Phone: [facility] 01-07-2023 08:57-0400 Body weight 62.2 kg Martell Braswell MD Work Phone: [facility] 12-17-2022 12:07-0400 Body height 160 cm Martell Braswell MD Work Phone: [facility] Encounters Encounter Date Encounter Type Care Provider Facility Start: 01-21-2023 End: 01-21-2023 Postop follow up visit related to original px Kell Deras MD Work Phone: [facility] Procedures Date Procedure [...] MD Work Phone: Start: 01-03-2023 Glucose measurement [facility] Work Phone: Start: 01-03-2023 Glucose measurement [facility] Work Phone: Start: 01-03-2023 Calcium ionized Becky Tamayo RPh,PharmD Start: 01-03-2023 Comprehensive metabolic panel Becky Tamayo h,PharmD Start: 01-03-2023 Glucose measurement [facility] Work Phone: Start: 01-02-2023 End: 01-03-2023 Glucose measurement [facility] Work Phone: Start: 01-02-2023 Glucose measurement [facility] Work Phone: Start: 01-02-2023 Glucose measurement [facility] Work Phone: Start: 01-02-2023 Glucose measurement [facility] Work Phone: Start: 01-02-2023 Glucose measurement [facility] Work Phone: Start: 01-02-2023 Basic metabolic panel calcium total Dima Lu MD Work Phone: Start: 5 End: 01-02-2023 Glucose measurement [facility] Work Phone: Start: 01-01-2023 Glucose measurement [facility] Work Phone: Start: 01-01-2023 Glucose measurement [facility] Work Phone: Start: 01-01-2023 Glucose measurement [facility] Work Phone: Start: 01-01-2023 Glucose measurement [facility] Work Phone: Start: 01-01-2023 Radiologic exam abdomen [address] MD Work Phone: Start: 01-01-2023 Glucose measurement [facility] Work Phone: Start: 01-01-2023 Basic metabolic panel calcium total Dima Lu MD Work Phone: Start: 01-01-2023 Glucose measurement [facility] Work Phone: Start: 12-31-2022 Glucose measurement [facility] Work Phone: Start: 12-31-2022 Glucose measurement [facility] Work Phone: Start: 12-31-2022 Glucose measurement [facility] Work Phone: Start: 12-31-2022 Glucose measurement [facility] Work Phone: Start: 12-31-2022 Glucose measurement [facility] Work Phone: Start: 0 Basic metabolic panel calcium total Dima Lu MD Work Phone: Start: 12-31-2022 Glucose measurement [facility] Work Phone: Start: 12-30-2022 Glucose measurement [facility] Work Phone: Start: 12-30-2022 Glucose measurement [facility] Work Phone: Start: 12-30-2022 Glucose measurement [facility] Work Phone: Start: 12-30-2022 Glucose measurement [facility] Work Phone: Start: 12-30-2022 Ct abdomen & pelvis w/contrast material Mariluz St MD Work Phone: Start: 12-30-2022 Basic metabolic panel calcium total Dima Lu MD Work Phone: Start: 12-30-2022 Glucose measurement [facility] Work Phone: Start: 12-29-2022 Glucose measurement [facility] Work Phone: Start: 12-29-2022 Glucose measurement [facility] Work Phone: Start: 12-29-2022 Glucose measurement [facility] Work Phone: Start: 12-29-2022 Glucose measurement [facility] Work Phone: Start: 12-29-2022 Glucose measurement [facility] Work Phone: Start: 12-29-2022 Basic metabolic panel calcium total Dima Lu MD Work Phone: Start: 12-29-2022 Radiologic exam abdomen 1 view Raf meyers MD Work Phone: Start: 12-29-2022 Glucose measurement [facility] Work Phone: Start: 12-28-2022 Glucose measurement [facility] Work Phone: Start: 12-28-2022 Glucose measurement [facility] Work Phone: Start: 12-28-2022 Glucose measurement [facility] Work Phone: Start: 12-28-2022 Glucose measurement [facility] Work Phone: Start: 12-28-2022 Glucose measurement [facility] Work Phone: Start: 12-28-2022 Comprehensive metabolic panel Becky Tamayo [facility],PharmD Start: 12-28-2022 Glucose measurement [facility] Work Phone: Start: 12-27-2022 Basic [...] Basic metabolic panel calcium total Pao Serrano DELINQUENCY COUNSELOR Work Phone: Start: 12-19-2022 Comprehensive metabolic panel [...] PA-C Work Phone: Start: 12-17-2022 GOLD TOP Mratell Braswell MD Work Phone: Start: 12-17-2022 Hepatic [...] Start: 11-18-2031 Tetanus vaccination Tetanus: Every 10yrs [facility] Start: 12-28-2023 Depression screening using PHQ-9 (Patient Health Questionnaire 9) score Depression Screening (PHQ-2/9) [facility] Start: 05-27-2023 Influenza vaccination Sequential Influenza Vaccine (Season Ended) [facility] Start: 03-22-2023 End: 12-21-2023 CT of chest without contrast [facility] Work Phone: Start: 01-06-2021 COVID-19 Vaccine (3 - Moderna risk series) COVID-19 Vaccine (3 - Moderna risk series) [facility] Start: 11-26-2015 Pneumococcal Vaccine: Age 65+ (2 - PPSV23 if available, else PCV20) Pneumococcal Vaccine: Age 65+ (2 - PPSV23 if available, else PCV20) [facility] Start: 2006 Fall risk assessment Falls Risk Assessment [facility] Start: 1960 Administration of herpes zoster vaccine Zoster Vaccines (1 of 2) [facility] Start: 1951 Diabetic foot examination Foot Exam [facility] Start: 1951 Glaucoma screening Ophthalmology Exam [facility] Start: 1951 Urine screening for protein Urine Microalbumin [facility] Start: 1944 History and physical examination, annual for health maintenance Wellness Visit [facility] Start: 1940 Hemoglobin A1c measurement A1C [facility] Start: 1940 Screening for osteoporosis Dexa Scan [facility] Payers Date Payer Category Payer Unknown [id number] 2022 Unknown [id number] 2006 Medicare [id number] 2006 Medicare [id number] 2006 Medicare [id number] 1940 Unknown [id number] Self-pay [id number] Social History Date Type Detail Facility Start: 12-17-2022 Tobacco smoking status NHIS Never sm oked tobacco [facility] History of tobacco use Passive smoker [facility] Start: 12-17-2022 Tobacco use and exposure Smokeless t obacco non-user [facility] Start: 12-24-2022 End: 01-24-2023 Alcohol intake Ex-drinker (finding) [facility] Start: 12-24-2022 End: 12-27-2022 History of Social function [facility] Start: 12-24-2022 End: 12-27-2022 Tobacco use panel [facility] Adult Depression Scr eening Assessment [facility] Start: 1940 [facility] Start: 12-07-2022 End: 01-21-2023 Exposure to SARS-CoV-2 (event) Not sure [facility] Clinical Notes 12-17-2022 to 01-24-2023 Kell Deras MD - 01/24/2023 4:27 PM Isaac Gómez RN - 01/07/2023 4:07 PM Darya Gonzáles RN - 01/07/2023 11:06 AM BRAULIOTEden Nelson CNP - 01/07/2023 9:36 AM EDT Note Date & Type Note Facility 01-24-2023 History of Presen t illness Narrative Surgical Oncology Post Operative Office Note Patient Name: Merlyn Perez MR #: [id number] : 1940 Physicians: Milo Hercules MD (PCP); [...] established with a local medical oncologist in [place] for discussion of adjuvant therapy if indicated [...] and radicular pain radiating into her sides. Bath Tester: No History: Past Medical History: Diagnosis Date Hypertension Stroke (HCC) Past Surgical History: Procedure Laterality Date COLECTOMY LAPAROSCOPIC RIGHT N/A 12/23/2022 Procedure: LAPAROSCOPIC RIGHT COLECTOMY; Surgeon: Kell Deras MD; Location: [facility] Main OR; Service: General Surgery COLONOSCOPY N/A 12/20/2022 Procedure: COLONOSCOPY; Surgeon: Storm Byers MD; Location: [facility] Endo; Service: Gastroenterology EGD N/A 12/20/2022 Procedure: ESOPHAGOGASTRODUODENOSCOPY; Surgeon: Storm Byers MD; Location: [facility] Endo; Service: Gastroenterology History reviewed. No [...] mouth daily . naloxone (NARCAN) 4 mg/actuation [place] Administer 1 spray into one nostril for [...] of normal caliber; however, beginning involving the ilm-xo-sxyojj ileum to the level of anastomosis and [...] right hemicolectomy with distended bowel loops predominantly pad-ep-qoolwq ileum to the level of anastomosis with [...] 6. Additional stable nonemergent findings as above. [facility] Workstation ID: [id number] XR Abdomen AP Result [...] encounter. E/M Codin documented in this encounter [facility] 01-07-2023 History of Presen t illness Narrative Discharge instructions given and reviewed with patient and daughter. Patient and daughter verbalized understanding. Patient assisted off unit with a wheelchair to private vehicle. Patient took belongings at discharge. Report called to Valentina in [place]. Images from the original note were not included. Care Management Progress Note Date: 01/07/2023 Time: 11:06 AM Patient Name: Merlyn Perez Date of : 1940 Discharge Plan: D/C Disposition: Rehab Facility Agency/Destination: Other ([facility]) Post-Acute Patient Choice 1: [facility] Post-Acute Patient Choice 2: [facility] Options Reviewed: Possible expense, Explained services/benefits Reason for Choice: Patient/Family preference Regulatory Documentation: Medicare IM Regulatory Documentation Status: Certified Patient Paper Copy: Patient received paper copy Discharging Transportation Plan: Transportation Type: Auto Discharge Plan Status: Informed by attending pt is medically ready for discharge today. Spoke with family and they will transport at 3pm to [facility]. . . Spoke with Ani siddiqui phone [phone] for [facility] and aware of today's discharge and transport time by family. Will fax DOD bundle to [phone] Nurse aware to call report to [phone] and fax they paper work to [phone]. [facility] Request Status: Selected Selected Services: Inpatient Rehabilitation Address: [address] [place] [address]. [place] [address] TPN is off and PICC being removed prior to dc. Updated pt and family in room. No covid needed. [facility] IPR signed. Addendum 12noon DOD faxed to [phone] and also to [phone] per Ani siddiqui request. . Date: 01/07/2023 Patient name: Merlyn Perez Date Of : 1940 Admit Date: 12/17/2022 Back pain Assessment & Plan Reason For Hospitalization: ICD-10 M54.9 Merlyn Perez presented 12/17/2022 a 82 y.o. female with a history of HTN and recent CVA 11/27/22 who presented to [facility] 12/14/22 and again 12/16/22 for recurrent abdominal pain. OSH CT C/A/P 12/17/22 noted enlarged mediastinal LNs with 5 mm RLL pulmonary nodule and RLQ 1.7x1.6cm mass abbutting the distal small bowel. Transferred to [facility] 12/17/2022 for SurgOnc evaluation. S/p right [...] again last night. Continues to feel that Alloy is helpful. I discussed weaning Alloy to Q 6 H PRN, however, pt [...] and would like to discontinue. Plan: Continue Alloy 5/325 mg PO Q 4 H PRN, caution sedation Continue Tylenol 650 mg PO Q 4 H PRN, caution with Alloy Continue Robaxin 500 mg PO Q 8 [...] SL Q 4 H PRN, rotate to Alloy in hopes of less side effects Robaxin [...] y/o female presenting 12/17/2022 who presented to [facility] 12/14/22 and again 12/16/22 for recurrent abdominal pain. OSH CT C/A/P 12/17/22 noted enlarged mediastinal LNs with 5 mm RLL pulmonary nodule and RLQ 1.7x1.6cm mass abbutting the distal small bowel. Transferred to [facility] 12/17/2022 for SurgOnc evaluation. 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 Course complicated 12/25 with ileus s/p NGT. During rounding visit 01/07/2023 Merlyn was sitting up in bed eating breakfast, daughter present. Merlyn is pleasant, awake, alert, oriented and in NAD. Continues to feel that Alloy and muscle relaxer are helpful for abdominal pain. Continues to have abdominal distention. Does not feel that she can wean Alloy to Q 6 H just yet as [...] RIGHT COLECTOMY; Surgeon: Kell Deras MD; Location: [facility] Main OR; Service: General Surgery COLONOSCOPY N/A 12/20/2022 Procedure: COLONOSCOPY; Surgeon: Storm Byers MD; Location: [facility] Endo; Service: Gastroenterology EGD N/A 12/20/2022 Procedure: ESOPHAGOGASTRODUODENOSCOPY; Surgeon: Storm Byers MD; Location: [facility] Endo; Service: Gastroenterology History reviewed. No [...] Note Patient Name: Merlyn Perez MR #: [id number] : 1940 Assessment and Plan: 82 y.o. female w/ PMHx of HTN, HLD, anxiety/depression, asthma, GERD, recent admission for CVA (11/27/2022) on Plavix, w/ hx of R frontal, parietal, and L temporal infarctions, h/o CCY who presented to [facility] on 12/17/2022 as transfer from [facility] with RLQ back pain, concern for [...] to the patient and the daughter satisfaction. [facility] In[facility] Progress Note 01/06/2023 Merlyn Perez 1940 [id number] Assessment/Plan: Merlyn Perez is a 82 y.o. female with a history of HTN and recent CVA 11/27/22 who presented to [facility] 12/14/22 and again 12/16/22 for recurrent abdominal pain. OSH CT C/A/P 12/17/22 noted RLQ mass and enlarged mediastinal LNs, RLL pulmonary nodule. Transferred to [facility] 12/17/2022 for SurgOnc evaluation. S/p right [...] reviewed, tiny stroke burden. Restarted.Follow-up outpatient with [facility] (AVS updated). HTN Urgency: per hx, amlodipine, atenolol, lisinopril and Lasix held given NPO status. On scheduled IV metoprolol and has PRNs. Pain control given this is the source of elevated BP. Uterine Prolapse: Follows with Dr. Hartley in [place]. PVR unremarkable this admission. 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 May require intermittent straight cath if urinary retention noted. Code Status: full, discussed on admit. DVT Prophylaxis: Lovenox. Current living situation: home. Expected disposition: [facility] Estimated discharge date: 01/07/23 *Family updated bedside 01/06. Subjective: Patient tolerant of some diet yesterday then ate too much too quickly with mac and cheese, pulled pork, other foods last night and had some abd pain overnight without too much sleep. This morning is tired. Off TPN Discussed care with Daughter at bedside. I have reviewed labs, images, and wireless consultant notes with surgery, cbc, bmp. Physical [...] Standing Balance - Static: Contact guard assist Section Cutter - Standing Static: wheeled walker Loss of Balance- Standing Static: multidirectional Standing Balance - Dynamic: Contact guard assist Section Cutter - Standing Dynamic: wheeled walker Loss of [...] assist Bed to Chair: Contact guard assist Section Cutter: wheeled walker Skilled Intervention Provided: verbal cues, [...] Details - Home Living: Daughter completes financial service representative, medication management (post CVA, prior to CVA, pt was independent w/ med management). Pt endorsing x1 fall recently Prior Level of Function Level of [place] - Transfers/Ambulation/Mobility: Independent with household ambulation, Independent with functional transfers Level of [place] - ADLs: Independent Level of [place] - Homemaking: Independent Driving: Patient drives (pt's [...] Disposition: Rehab Facility Post-Acute Patient Choice 1: [facility] Post-Acute Patient Choice 2: [facility] Options Reviewed: Possible expense, Explained services/benefits Reason for Choice: Patient/Family preference Regulatory Documentation: Medicare IM Regulatory Documentation Status: Certified Patient Paper Copy: Patient received paper copy Discharging Transportation Plan: Transportation Type: Auto (daughter will provide transportation a DC) Discharge Plan Status: Potential for discharge tomorrow. Looking at [place] [facility]. Spoke with Ani siddiqui phone [phone] and updated SNF bundle sent fax [phone] Looking at possible discharge Tuesday. TPN is off. Updated pt and family in room. Family will transport. Addendum 115pm. Left VM with Ani siddiqui for [facility] to verify acceptance for tomorrow. Waiting for call back. Addendum 130pm> Spoke with Ani siddiqui from [place] and they can accept tomorrow. No covid needed. Amb IPR signed. Date: 01/06/2023 Patient name: Merlyn Perez Date Of : 1940 Admit Date: 12/17/2022 Back pain Assessment & Plan Reason For Hospitalization: ICD-10 M54.9 Merlyn Perez presented 12/17/2022 a 82 y.o. female with a history of HTN and recent CVA 11/27/22 who presented to [facility] 12/14/22 and again 12/16/22 for recurrent abdominal pain. OSH CT C/A/P 12/17/22 noted enlarged mediastinal LNs with 5 mm RLL pulmonary nodule and RLQ 1.7x1.6cm mass abbutting the distal small bowel. Transferred to [facility] 12/17/2022 for SurgOnc evaluation. S/p right [...] it does cause some drowsiness. Plan: Continue Alloy 5/325 mg PO Q 4 H PRN, caution sedation Continue Tylenol 650 mg PO Q 4 H PRN, caution with Alloy Continue Robaxin 500 mg PO Q 8 [...] SL Q 4 H PRN, rotate to Alloy in hopes of less side effects Robaxin [...] y/o female presenting 12/17/2022 who presented to [facility] 12/14/22 and again 12/16/22 for recurrent abdominal pain. OSH CT C/A/P 12/17/22 noted enlarged mediastinal LNs with 5 mm RLL pulmonary nodule and RLQ 1.7x1.6cm mass abbutting the distal small bowel. Transferred to [facility] 12/17/2022 for SurgOnc evaluation. S/p right [...] RIGHT COLECTOMY; Surgeon: Kell Deras MD; Location: [facility] Main OR; Service: General Surgery COLONOSCOPY N/A 12/20/2022 Procedure: COLONOSCOPY; Surgeon: Storm Byers MD; Location: [facility] Endo; Service: Gastroenterology EGD N/A 12/20/2022 Procedure: ESOPHAGOGASTRODUODENOSCOPY; Surgeon: Storm Byers MD; Location: [facility] Endo; Service: Gastroenterology History reviewed. No [...] Note Patient Name: Merlyn Perez MR #: [id number] : 1940 Assessment and Plan: 82 y.o. female w/ PMHx of HTN, HLD, anxiety/depression, asthma, GERD, recent admission for CVA (11/27/2022) on Plavix, w/ hx of R frontal, parietal, and L temporal infarctions, h/o CCY who presented to [facility] on 12/17/2022 as transfer from [facility] with RLQ back pain, concern for [...] Working on dispo. Ok to resume asa[facility]avix. [facility] 01/05/2023 Merlyn Perez 1940 [id number] Assessment/Plan: Merlyn Perez is a 82 y.o. female with a history of HTN and recent CVA 11/27/22 who presented to [facility] 12/14/22 and again 12/16/22 for recurrent abdominal pain. OSH CT C/A/P 12/17/22 noted RLQ mass and enlarged mediastinal LNs, RLL pulmonary nodule. Transferred to [facility] 12/17/2022 for SurgOnc evaluation. S/p right [...] AP as able and statin.Follow-up outpatient with [facility] (AVS updated). HTN Urgency: per hx, amlodipine, atenolol, lisinopril and Lasix held given NPO status. On scheduled IV metoprolol and has PRNs. Pain control given this is the source of elevated BP. Uterine Prolapse: Follows with Dr. Hartley in [place]. PVR unremarkable this admission. 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 May require intermittent straight cath if urinary retention noted. Code Status: full, discussed on admit. DVT Prophylaxis: Lovenox. Current living situation: home. Expected disposition: SNF vs [place] [facility] Estimated discharge date: once ileus resolved, surgery clearance *Family updated bedside 01/04. Subjective: Patient tolerant of some diet overnight without n/v/ and pain including cream of wheat. Beginning to wean TPN. Discussed care with Daughter at bedside. I have reviewed labs, images, and wireless consultant notes with surgery, cbc, bmp. Physical [...] Disposition: Rehab Facility Post-Acute Patient Choice 1: [facility] Post-Acute Patient Choice 2: [facility] Options Reviewed: Possible expense, Explained services/benefits Reason [...] for dc soon. Update left on for [facility] Liamoo Law ([phone]). Care Management continues to follow. Nutrition Support [...] Estimated Energy Needs Total Energy Estimated Needs: 8273-2634 Method for Estimating Needs: 22-25 kcals/kg IBW (BMI 24.9: 64kg) Total Protein Estimated Needs: 76-96g Method for Estimating Needs: 1.2-1.5g/kg IBW (BMI 24.9: 64kg) Fluid Needs Total Fluid Estimated Needs: 4445-6796 Method for Estimating Needs: 22-25ml/kg IBW (BMI 24.9: 64kg) TPN Changes: -Discontinue TPN per Surgery team. Confirmed with Dr. Nguyen. Nutrition support team will sign-off at this time. Please reconsult NST if TPN again indicated. Lakshmi Gonzalez RD, LD, [facility] Date: 01/05/2023 Patient name: Merlyn Perez Date Of : 1940 Admit Date: 12/17/2022 Back pain Assessment & Plan Reason For Hospitalization: ICD-10 M54.9 Merlyn Perez presented 12/17/2022 a 82 y.o. female with a history of HTN and recent CVA 11/27/22 who presented to [facility] 12/14/22 and again 12/16/22 for recurrent abdominal pain. OSH CT C/A/P 12/17/22 noted enlarged mediastinal LNs with 5 mm RLL pulmonary nodule and RLQ 1.7x1.6cm mass abbutting the distal small bowel. Transferred to [facility] 12/17/2022 for SurgOnc evaluation. S/p right [...] goes around both sides of her waist. Alloy causes less drowsiness, which they appreciate. Daughter [...] per surgery as pt NPO. Plan: Continue Alloy 5/325 mg PO Q 4 H PRN, caution sedation Continue Tylenol 650 mg PO Q 4 H PRN, caution with Alloy Continue Robaxin 500 mg PO Q 8 [...] SL Q 4 H PRN, rotate to Alloy in hopes of less side effects Robaxin [...] y/o female presenting 12/17/2022 who presented to [facility] 12/14/22 and again 12/16/22 for recurrent abdominal pain. OSH CT C/A/P 12/17/22 noted enlarged mediastinal LNs with 5 mm RLL pulmonary nodule and RLQ 1.7x1.6cm mass abbutting the distal small bowel. Transferred to [facility] 12/17/2022 for SurgOnc evaluation. S/p right [...] decreasing this as it contributes to drowsiness. Alloy makes her less drowsy, which they appreciate. [...] RIGHT COLECTOMY; Surgeon: Kell Deras MD; Location: [facility] Main OR; Service: General Surgery COLONOSCOPY N/A 12/20/2022 Procedure: COLONOSCOPY; Surgeon: Storm Byers MD; Location: [facility] Endo; Service: Gastroenterology EGD N/A 12/20/2022 Procedure: ESOPHAGOGASTRODUODENOSCOPY; Surgeon: Storm Byers MD; Location: [facility] Endo; Service: Gastroenterology History reviewed. No [...] Note Patient Name: Merlyn Perez MR #: [id number] : 1940 Assessment and Plan: 82 y.o. female w/ PMHx of HTN, HLD, anxiety/depression, asthma, GERD, recent admission for CVA (11/27/2022) on Plavix, w/ hx of R frontal, parietal, and L temporal infarctions, h/o CCY who presented to [facility] on 12/17/2022 as transfer from [facility] with RLQ back pain, concern for [...] guard assist Toilet Transfers: Contact guard assist Section Cutter: wheeled walker Skilled Intervention Provided: verbal cues, [...] Details - Home Living: Daughter completes financial service representative, medication management (post CVA, prior to CVA, pt was independent w/ med management). Pt endorsing x1 fall recently Prior Level of Function Level of [place] - Transfers/Ambulation/Mobility: Independent with household ambulation, Independent with functional transfers Level of [place] - ADLs: Independent Level of [place] - Homemaking: Independent Driving: Patient drives (pt's [...] 1680ml over 12H. Lakshmi Gonzalez RD, LD, [facility] Nutrition Care Follow Up Monitoring and [...] Estimated Energy Needs Total Energy Estimated Needs: 0754-8655 Method for Estimating Needs: 22-25 kcals/kg IBW (BMI 24.9: 64kg) Total Protein Estimated Needs: 76-96g Method for Estimating Needs: 1.2-1.5g/kg IBW (BMI 24.9: 64kg) Shraddha Gomez RD, LD, [facility] Vocera: [phone] [facility] 01/04/2023 Merlyn Perez 1940 [id number] Assessment/Plan: Merlyn Perez is a 82 y.o. female with a history of HTN and recent CVA 11/27/22 who presented to [facility] 12/14/22 and again 12/16/22 for recurrent abdominal pain. OSH CT C/A/P 12/17/22 noted RLQ mass and enlarged mediastinal LNs, RLL pulmonary nodule. Transferred to [facility] 12/17/2022 for SurgOnc evaluation. S/p right [...] AP as able and statin.Follow-up outpatient with [facility] (AVS updated). HTN Urgency: per hx, amlodipine, atenolol, lisinopril and Lasix held given NPO status. On scheduled IV metoprolol and has PRNs. Pain control given this is the source of elevated BP. Uterine Prolapse: Follows with Dr. Hartley in [place]. PVR unremarkable this admission. 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 May require intermittent straight cath if urinary retention noted. Code Status: full, discussed on admit. DVT Prophylaxis: Lovenox. Current living situation: home. Expected disposition: SNF vs [place] [facility] Estimated discharge date: once ileus resolved, surgery clearance *Family updated bedside 01/04. Subjective: Patient tolerant of some diet overnight without n/v/ and pain. Discussed care with Daughter at bedside. I have reviewed labs, images, and wireless consultant notes with surgery, cbc, bmp. Physical [...] sodium chloride (PF) 5 mL Intravenous Q8H PENDING SALE TO [facility] Labs, Imaging and Studies reviewed: Results from [...] and recent CVA 11/27/22 who presented to [facility] 12/14/22 and again 12/16/22 for recurrent abdominal pain. OSH CT C/A/P 12/17/22 noted enlarged mediastinal LNs with 5 mm RLL pulmonary nodule and RLQ 1.7x1.6cm mass abbutting the distal small bowel. Transferred to [facility] 12/17/2022 for SurgOnc evaluation. 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 Course complicated 12/25 with ileus s/p NGT. Assessment: Merlyn was lying on her back in the bed, appears drowsy. She was much more talkative today. States her pain continues to be tolerable at times and feels that the Alloy is helpful. She is happy that her [...] per surgery as pt NPO. Plan: Continue Alloy 5/325 mg PO Q 4 H PRN, caution sedation Continue Tylenol 650 mg PO Q 4 H PRN, caution with Alloy Continue Robaxin 500 mg PO Q 8 [...] SL Q 4 H PRN, rotate to Alloy in hopes of less side effects Robaxin [...] y/o female presenting 12/17/2022 who presented to [facility] 12/14/22 and again 12/16/22 for recurrent abdominal pain. OSH CT C/A/P 12/17/22 noted enlarged mediastinal LNs with 5 mm RLL pulmonary nodule and RLQ 1.7x1.6cm mass abbutting the distal small bowel. Transferred to [facility] 12/17/2022 for SurgOnc evaluation. S/p right [...] her pain. Feels that the rotation to Alloy yesterday has been doing some good. Pt [...] RIGHT COLECTOMY; Surgeon: Kell Deras MD; Location: [facility] Main OR; Service: General Surgery COLONOSCOPY N/A 12/20/2022 Procedure: COLONOSCOPY; Surgeon: Storm Byers MD; Location: [facility] Endo; Service: Gastroenterology EGD N/A 12/20/2022 Procedure: ESOPHAGOGASTRODUODENOSCOPY; Surgeon: Storm Byers MD; Location: [facility] Endo; Service: Gastroenterology History reviewed. No [...] shifts: I/O last 3 completed shifts: In: 03934 [P.O.:100; I.V.:165.7; IV Piggyback:2557.2] Out: 350 [Urine:350] [...] Standing Balance - Static: Contact guard assist Section Cutter - Standing Static: wheeled walker Standing Balance - Dynamic: Contact guard assist Section Cutter - Standing Dynamic: wheeled walker Standing Balance [...] in chair at end of treatment session.) Section Cutter: bedrails, bed positioning mechanics Skilled Intervention Provided: [...] Pivot Transfers: Contact guard assist (x1 trial) Section Cutter: wheeled walker Skilled Intervention Provided: verbal cues, [...] Details - Home Living: Daughter completes financial service representative, medication management (post CVA, prior to CVA, pt was independent w/ med management). Pt endorsing x1 fall recently Prior Level of Function Level of [place] - Transfers/Ambulation/Mobility: Independent with household ambulation, Independent with functional transfers Level of [place] - ADLs: Independent Level of [place] - Homemaking: Independent Driving: Patient drives (pt's [...] Note Patient Name: Merlyn Perez MR #: [id number] : 1940 Assessment and Plan: 82 y.o. female w/ PMHx of HTN, HLD, anxiety/depression, asthma, GERD, recent admission for CVA (11/27/2022) on Plavix, w/ hx of R frontal, parietal, and L temporal infarctions, h/o CCY who presented to [facility] on 12/17/2022 as transfer from [facility] with RLQ back pain, concern for [...] Disposition: Rehab Facility Post-Acute Patient Choice 1: [facility] Post-Acute Patient Choice 2: [facility] Options Reviewed: Possible expense, Explained services/benefits Reason for Choice: Patient/Family preference Regulatory Documentation: Medicare IM Regulatory Documentation Status: Certified Patient Paper Copy: Patient received paper copy Discharging Transportation Plan: Transportation Type: Auto (daughter will provide transportation a DC) Discharge Plan Status: Pt discussed during MDR's. Per RN, NG tube is out awaiting healing and pain management. [employer] ADMINISTRATOR will follow. Date: 01/03/2023 Patient name: Merlyn Perez Date Of : 1940 Admit Date: 12/17/2022 Back pain Assessment & Plan Reason For Hospitalization: ICD-10 M54.9 Merlyn Perez presented 12/17/2022 a 82 y.o. female with a history of HTN and recent CVA 11/27/22 who presented to [facility] 12/14/22 and again 12/16/22 for recurrent abdominal pain. OSH CT C/A/P 12/17/22 noted enlarged mediastinal LNs with 5 mm RLL pulmonary nodule and RLQ 1.7x1.6cm mass abbutting the distal small bowel. Transferred to [facility] 12/17/2022 for SurgOnc evaluation. S/p right [...] sedation, use oral opiate first Rotate to Alloy 5/325 mg PO Q 4 H PRN, [...] SL Q 4 H PRN, rotate to Alloy in hopes of less side effects Robaxin [...] y/o female presenting 12/17/2022 who presented to [facility] 12/14/22 and again 12/16/22 for recurrent abdominal pain. OSH CT C/A/P 12/17/22 noted enlarged mediastinal LNs with 5 mm RLL pulmonary nodule and RLQ 1.7x1.6cm mass abbutting the distal small bowel. Transferred to [facility] 12/17/2022 for SurgOnc evaluation. S/p right [...] they prefer to schedule. Will rotate to Alloy in hopes of less drowsy side effects now that NG removed. Expresses desire to eat. Will continue to reassess and make changes as needed. Denies side effects/sedation on current regimen. History: Past Medical History: Diagnosis Date Hypertension Stroke (HCC) Past Surgical History: Procedure Laterality Date COLECTOMY LAPAROSCOPIC RIGHT N/A 12/23/2022 Procedure: LAPAROSCOPIC RIGHT COLECTOMY; Surgeon: Kell Deras MD; Location: [facility] Main OR; Service: General Surgery COLONOSCOPY N/A 12/20/2022 Procedure: COLONOSCOPY; Surgeon: Storm Byers MD; Location: [facility] Endo; Service: Gastroenterology EGD N/A 12/20/2022 Procedure: ESOPHAGOGASTRODUODENOSCOPY; Surgeon: Storm Byers MD; Location: [facility] Endo; Service: Gastroenterology History reviewed. No [...] shifts: I/O last 3 completed shifts: In: 46108 [I.V.:165.7; IV Piggyback:2557.2] Out: 650 [Urine:650] Medications: Scheduled Meds: enoxaparin (LOVENOX) injection 40 mg Subcutaneous Daily gabapentin 300 mg Oral Q8H JOSH insulin lispro 0-30 Units Subcutaneous Q4H JOSH methocarbamoL 500 mg Oral Q8H JOSH [...] per NST protocol. Lakshmi Gonzalez RD, LD, [facility] Inpatient Progress Note 01/03/2023 Merlyn Perez 1940 [id number] Assessment/Plan: Merlyn Perez is a 82 y.o. female with a history of HTN and recent CVA 11/27/22 who presented to [facility] 12/14/22 and again 12/16/22 for recurrent abdominal pain. OSH CT C/A/P 12/17/22 noted RLQ mass and enlarged mediastinal LNs, RLL pulmonary nodule. Transferred to [facility] 12/17/2022 for SurgOnc evaluation. S/p right [...] AP as able and statin.Follow-up outpatient with [facility] (AVS updated). HTN Urgency: per hx, amlodipine, atenolol, lisinopril and Lasix held given NPO status. On scheduled IV metoprolol and has PRNs. Pain control given this is the source of elevated BP. Uterine Prolapse: Follows with Dr. Hartley in [place]. PVR unremarkable this admission. Dr. Smiley (uro-railroad car truck builder) declined pessary this admission, ok to follow [...] Note Patient Name: Merlyn Perez MR #: [id number] : 1940 Assessment and Plan: 82 y.o. female w/ PMHx of HTN, HLD, anxiety/depression, asthma, GERD, recent admission for CVA (11/27/2022) on Plavix, w/ hx of R frontal, parietal, and L temporal infarctions, h/o CCY who presented to [facility] on 12/17/2022 as transfer from [facility] with RLQ back pain, concern for [...] discharge on TPN to SNF [place]. [facility] Inpatient Progress Note 01/02/2023 Merlyn Perez 1940 [id number] Assessment/Plan: Merlyn Perez is a 82 y.o. female with a history of HTN and recent CVA 11/27/22 who presented to [facility] 12/14/22 and again 12/16/22 for recurrent abdominal pain. OSH CT C/A/P 12/17/22 noted RLQ mass and enlarged mediastinal LNs, RLL pulmonary nodule. Transferred to [facility] 12/17/2022 for SurgOnc evaluation. S/p right [...] AP as able and statin.Follow-up outpatient with [facility] (AVS updated). HTN Urgency: per hx, amlodipine, atenolol, lisinopril and Lasix held given NPO status. On scheduled IV metoprolol and has PRNs. Pain control given this is the source of elevated BP. Uterine Prolapse: Follows with Dr. Hartley in [place]. PVR unremarkable this admission. 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 May require intermittent straight cath if urinary retention noted. Code Status: full, discussed on admit. DVT Prophylaxis: Lovenox. Current living situation: home. Expected disposition: SNF vs [facility]. Estimated discharge date: 3-4 days pending specialty [...] Subcutaneous Daily gabapentin 300 mg Oral Q8H PENDING SALE TO [facility] insulin lispro 0-30 Units Subcutaneous Q4H PENDING SALE TO [facility] methocarbamol 1 g Intravenous Q8H metoprolol 5 [...] Note Patient Name: Merlyn Perez MR #: [id number] : 1940 Assessment and Plan: 82 y.o. female w/ PMHx of HTN, HLD, anxiety/depression, asthma, GERD, recent admission for CVA (11/27/2022) on Plavix, w/ hx of R frontal, parietal, and L temporal infarctions, h/o CCY who presented to [facility] on 12/17/2022 as transfer from [facility] with RLQ back pain, concern for [...] N/A Weekdays 5a-5p [phone] Nights & Weekends [phone] Subjective: Resting comfortably in bed this AM. [...] current TPN rx Lolis Ku RD, LD, [facility] 01/01/2023 Merlyn Perez 1940 [id number] Assessment/Plan: Merlyn Perez is a 82 y.o. female with a history of HTN and recent CVA 11/27/22 who presented to [facility] 12/14/22 and again 12/16/22 for recurrent abdominal pain. OSH CT C/A/P 12/17/22 noted RLQ mass and enlarged mediastinal LNs, RLL pulmonary nodule. Transferred to [facility] 12/17/2022 for SurgOnc evaluation. S/p right [...] AP as able and statin.Follow-up outpatient with [facility] (AVS updated). HTN Urgency: per hx, amlodipine, atenolol, lisinopril and Lasix held given NPO status. On scheduled IV metoprolol and has PRNs. Pain control given this is the source of elevated BP. Uterine Prolapse: Follows with Dr. Hartley in [place]. PVR unremarkable this admission. 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 May require intermittent straight cath if urinary retention noted. Code Status: full, discussed on admit. DVT Prophylaxis: Lovenox. Current living situation: home. Expected disposition: SNF vs C. Estimated discharge date: 3-4 days pending specialty clearance. *Family updated bedside 12/31. Subjective: No acute events overnight, abdomen appears slightly less distended, circulation tender with ongoing abdominal pain. Attempting to [...] TPN rx. Radha Del Valle RD, LD, [facility] Surgical Oncology Daily Progress Note Patient Name: Merlyn Perez MR #: [id number] : 1940 Assessment and Plan: 82 y.o. female w/ PMHx of HTN, HLD, anxiety/depression, asthma, GERD, recent admission for CVA (11/27/2022) on Plavix, w/ hx of R frontal, parietal, and L temporal infarctions, h/o CCY who presented to [facility] on 12/17/2022 as transfer from [facility] with RLQ back pain, concern for [...] N/A Weekdays 5a-5p [phone] Nights & Weekends [phone] Subjective: Uncomfortable appearing this AM, but overall [...] Standing Balance - Static: Contact guard assist Section Cutter - Standing Static: wheeled walker Loss of Balance- Standing Static: multidirectional (postural sway) Standing Balance - Dynamic: Contact guard assist Section Cutter - Standing Dynamic: wheeled walker Loss of [...] Supine: Head of bed elevated, Moderate assist Section Cutter: bedrails, bed positioning mechanics Skilled Intervention Provided: [...] assist Bed to Chair: Contact guard assist Section Cutter: wheelchair Skilled Intervention Provided: verbal cues, tactile cues, facilitation, monitoring patient response with activity, monitoring patient response with positional changes, patient education For: UE positioning, controlled descent, efficient movement, midline orientation, safety during functional tasks, safe use of AD and/or equipment, self-monitoring during activity Resulting in: improved activity tolerance, improved functional independence, improved safety, improved performance Toilet Transfers: Contact guard assist Section Cutter: RUE (grab bars) Skilled Intervention Provided: verbal [...] Details - Home Living: Daughter completes financial service representative, medication management (post CVA, prior to CVA, pt was independent w/ med management). Pt endorsing x1 fall recently Prior Level of Function Level of [place] - Transfers/Ambulation/Mobility: Independent with household ambulation, Independent with functional transfers Level of [place] - ADLs: Independent Level of [place] - Homemaking: Independent Driving: Patient drives (pt's [...] Estimated Energy Needs Total Energy Estimated Needs: 9953-7458 Method for Estimating Needs: 22-25 kcals/kg IBW (BMI 24.9: 64kg) Total Protein Estimated Needs: 76-96g Method for Estimating Needs: 1.2-1.5g/kg IBW (BMI 24.9: 64kg) Fluid Needs Total Fluid Estimated Needs: 8472-7681 Method for Estimating Needs: 22-25ml/kg IBW (BMI 24.9: 64kg) Assessed By: JOSE ANTONIO Borden, MARYSOL, LD Date: 12/31/2022 Patient name: Merlyn Perez Date Of : 1940 Admit Date: 12/17/2022 Back pain Assessment & Plan Reason For Hospitalization: ICD-10 M54.9 Merlyn Perez presented 12/17/2022 a 82 y.o. female with a history of HTN and recent CVA 11/27/22 who presented to [facility] 12/14/22 and again 12/16/22 for recurrent abdominal pain. OSH CT C/A/P 12/17/22 noted enlarged mediastinal LNs with 5 mm RLL pulmonary nodule and RLQ 1.7x1.6cm mass abbutting the distal small bowel. Transferred to [facility] 12/17/2022 for SurgOnc evaluation. S/p right [...] y/o female presenting 12/17/2022 who presented to [facility] 12/14/22 and again 12/16/22 for recurrent abdominal pain. OSH CT C/A/P 12/17/22 noted enlarged mediastinal LNs with 5 mm RLL pulmonary nodule and RLQ 1.7x1.6cm mass abbutting the distal small bowel. Transferred to [facility] 12/17/2022 for SurgOnc evaluation. S/p right [...] RIGHT COLECTOMY; Surgeon: Kell Deras MD; Location: [facility] Main OR; Service: General Surgery COLONOSCOPY N/A 12/20/2022 Procedure: COLONOSCOPY; Surgeon: Storm Byers MD; Location: [facility] Endo; Service: Gastroenterology EGD N/A 12/20/2022 Procedure: ESOPHAGOGASTRODUODENOSCOPY; Surgeon: Storm Byers MD; Location: [facility] Endo; Service: Gastroenterology History reviewed. No [...] Bed to Chair Transfers: Contact guard assist Section Cutter: RUE (IV pole at times) Skilled Intervention Provided: verbal cues For: compensatory strategies, energy conservation Resulting In: improved activity tolerance Exercise Balance Treatment Interventions Additional Treatment Details Pt able to navigate into hallway with increased time, HIV COUNSELOR recommended ww but pt declined. Pt fatigues [...] Details - Home Living: Daughter completes financial service representative, medication management (post CVA, prior to CVA, pt was independent w/ med management). Pt endorsing x1 fall recently Prior Level of Function Level of [place] - Transfers/Ambulation/Mobility: Independent with household ambulation, Independent with functional transfers Level of [place] - ADLs: Independent Level of [place] - Homemaking: Independent Driving: Patient drives (pt's [...] current TPN rx Shraddha Gomez RD, LD, [facility] 12/31/2022 Merlyn Perez 1940 [id number] Assessment/Plan: Merlyn Perez is a 82 y.o. female with a history of HTN and recent CVA 11/27/22 who presented to [facility] 12/14/22 and again 12/16/22 for recurrent abdominal pain. OSH CT C/A/P 12/17/22 noted RLQ mass and enlarged mediastinal LNs, RLL pulmonary nodule. Transferred to [facility] 12/17/2022 for SurgOnc evaluation. S/p right [...] AP as able and statin.Follow-up outpatient with [facility] (AVS updated). HTN Urgency: per hx, amlodipine, atenolol, lisinopril and Lasix held given NPO status. On scheduled IV metoprolol and has PRNs. Pain control given this is the source of elevated BP. Uterine Prolapse: Follows with Dr. Hartley in [place]. PVR unremarkable this admission. 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 May require intermittent straight cath if urinary retention noted. Code Status: full, discussed on admit. DVT Prophylaxis: Lovenox. Current living situation: home. Expected disposition: SNF vs [facility]. Estimated discharge date: 3-4 days pending specialty clearance. *Family updated bedside 12/31. Subjective: No acute events overnight, abdomen appears slightly less distended, circulation tender with ongoing abdominal pain. Attempting to [...] Subcutaneous Daily gabapentin 300 mg Tube Q8H PENDING SALE TO [facility] insulin lispro 0-30 Units Subcutaneous Q4H PENDING SALE TO [facility] methocarbamol 1 g Intravenous Q8H metoprolol 5 mg Intravenous Q6H PENDING SALE TO [facility] pantoprazole 40 mg Intravenous Daily sodium chloride (PF) 10 mL Intracatheter Q8H PENDING SALE TO [facility] sodium chloride (PF) 5 mL Intravenous Q8H PENDING SALE TO [facility] Labs, Imaging and Studies reviewed: Results from [...] Note Patient Name: Merlyn Perez MR #: [id number] : 1940 Assessment and Plan: 82 y.o. female w/ PMHx of HTN, HLD, anxiety/depression, asthma, GERD, recent admission for CVA (11/27/2022) on Plavix, w/ hx of R frontal, parietal, and L temporal infarctions, h/o CCY who presented to [facility] on 12/17/2022 as transfer from [facility] with RLQ back pain, concern for [...] ppx Lovenox GI ppx N/A Weekdays 5a-5p [phone] Nights & Weekends [phone] Subjective: NAEO. Still no bowel function yet, [...] NOTE Patient Name: Merlyn Perez MR #: [id number] ASSESSMENT AND PLAN: Complete uterovaginal prolapse Assessment [...] - Follows with Dr. Milly Hartley in [place], they had discussed surgical management before her [...] 4:30pm or on weekends, please page *[phone]* [facility] Inpatient Progress Note 12/30/2022 Merlyn Perez 1940 [id number] Assessment/Plan: Merlyn Perez is a 82 y.o. female with a history of HTN and recent CVA 11/27/22 who presented to [facility] 12/14/22 and again 12/16/22 for recurrent abdominal pain. OSH CT C/A/P 12/17/22 noted enlarged mediastinal LNs with 5mm RLL pulmonary nodule and RLQ 1.7x1.6cm mass abutting the distal small bowel. Transferred to [facility] 12/17/2022 for SurgOnc evaluation. S/p right [...] AP as able and statin.Follow-up outpatient with [facility] (AVS updated). HTN Urgency: per hx, amlodipine, atenolol, lisinopril and Lasix held given NPO status. On scheduled IV metoprolol and has PRNs. Pain control given this is the source of elevated BP. Uterine Prolapse: Dr. Smiley (uro-railroad car truck builder) evaluated. Code Status: full, discussed on admit. DVT Prophylaxis: Lovenox. Current living situation: home. Expected disposition: SNF vs [facility]. Estimated discharge date: 3-4 days pending specialty clearance. *Family updated bedside 12/30. Subjective: No acute events overnight, abdomen appears slightly less distended, circulation tender with ongoing abdominal pain. Attempting to [...] and recent CVA 11/27/22 who presented to [facility] 12/14/22 and again 12/16/22 for recurrent abdominal pain. OSH CT C/A/P 12/17/22 noted enlarged mediastinal LNs with 5 mm RLL pulmonary nodule and RLQ 1.7x1.6cm mass abbutting the distal small bowel. Transferred to [facility] 12/17/2022 for SurgOnc evaluation. S/p right [...] y/o female presenting 12/17/2022 who presented to [facility] 12/14/22 and again 12/16/22 for recurrent abdominal pain. OSH CT C/A/P 12/17/22 noted enlarged mediastinal LNs with 5 mm RLL pulmonary nodule and RLQ 1.7x1.6cm mass abbutting the distal small bowel. Transferred to [facility] 12/17/2022 for SurgOnc evaluation. S/p right [...] the day. Once NG out, may try Alloy. Pt feels Gabapentin helps the most, but [...] RIGHT COLECTOMY; Surgeon: Kell Deras MD; Location: [facility] Main OR; Service: General Surgery COLONOSCOPY N/A 12/20/2022 Procedure: COLONOSCOPY; Surgeon: Storm Byers MD; Location: [facility] Endo; Service: Gastroenterology EGD N/A 12/20/2022 Procedure: ESOPHAGOGASTRODUODENOSCOPY; Surgeon: Storm Byers MD; Location: [facility] Endo; Service: Gastroenterology History reviewed. No [...] current TPN rx Shraddha Gomez RD, LD, [facility] Surgical Oncology Daily Progress Note Patient Name: Merlyn Perez MR #: [id number] : 1940 Assessment and Plan: 82 y.o. female w/ PMHx of HTN, HLD, anxiety/depression, asthma, GERD, recent admission for CVA (11/27/2022) on Plavix, w/ hx of R frontal, parietal, and L temporal infarctions, h/o CCY who presented to [facility] on 12/17/2022 as transfer from [facility] with RLQ back pain, concern for [...] N/A Weekdays 5a-5p 229-1604 Nights & Weekends [phone] Subjective: NAEO. Still no bowel function yet [...] Disposition: Rehab Facility Post-Acute Patient Choice 1: [facility] Post-Acute Patient Choice 2: [facility] Options Reviewed: Possible expense, Explained services/benefits Reason [...] no TPN on discharge. Left VM with [facility] Ani liaison phone [phone] and informed pt is not medically ready and will call Tuesday with updates. Per prior notes they can accept with no NG. They can accept TPN if needed. No covid testing needed. [facility] Inpatient Progress Note 12/29/2022 Merlyn Perez 1940 [id number] Assessment/Plan: Merlyn Perez is a 82 y.o. female with a history of HTN and recent CVA 11/27/22 who presented to [facility] 12/14/22 and again 12/16/22 for recurrent abdominal pain. OSH CT C/A/P 12/17/22 noted enlarged mediastinal LNs with 5mm RLL pulmonary nodule and RLQ 1.7x1.6cm mass abutting the distal small bowel. Transferred to [facility] 12/17/2022 for SurgOnc evaluation. S/p right [...] AP as able and statin.Follow-up outpatient with [facility] (AVS updated). HTN Urgency: per hx, [...] Details - Home Living: Daughter completes financial service representative, medication management (post CVA, prior to CVA, pt was independent w/ med management). Pt endorsing x1 fall recently Prior Level of Function Level of [place] - Transfers/Ambulation/Mobility: Independent with household ambulation, Independent with functional transfers Level of [place] - ADLs: Independent Level of [place] - Homemaking: Independent Driving: Patient drives (pt's [...] and recent CVA 11/27/22 who presented to [facility] 12/14/22 and again 12/16/22 for recurrent abdominal pain. OSH CT C/A/P 12/17/22 noted enlarged mediastinal LNs with 5 mm RLL pulmonary nodule and RLQ 1.7x1.6cm mass abbutting the distal small bowel. Transferred to [facility] 12/17/2022 for SurgOnc evaluation. S/p right [...] y/o female presenting 12/17/2022 who presented to [facility] 12/14/22 and again 12/16/22 for recurrent abdominal pain. OSH CT C/A/P 12/17/22 noted enlarged mediastinal LNs with 5 mm RLL pulmonary nodule and RLQ 1.7x1.6cm mass abbutting the distal small bowel. Transferred to [facility] 12/17/2022 for SurgOnc evaluation. S/p right [...] Procedure: COLONOSCOPY; Surgeon: Storm Byers MD; Location: [facility] Endo; Service: Gastroenterology EGD N/A 12/20/2022 Procedure: ESOPHAGOGASTRODUODENOSCOPY; Surgeon: Storm Byers MD; Location: [facility] Endo; Service: Gastroenterology History reviewed. No [...] to [address], LD, [facility] Physical Therapy PHYSICAL THERAPY TREATMENT NOTE [...] Standing Balance - Static: Contact guard assist Section Cutter - Standing Static: wheeled walker Standing Balance - Dynamic: Contact guard assist Section Cutter - Standing Dynamic: wheeled walker Standing Balance [...] Details - Home Living: Daughter completes financial service representative, medication management (post CVA, prior to CVA, pt was independent w/ med management). Pt endorsing x1 fall recently Prior Level of Function Level of [place] - Transfers/Ambulation/Mobility: Independent with household ambulation, Independent with functional transfers Level of [place] - ADLs: Independent Level of [place] - Homemaking: Independent Driving: Patient drives (pt's [...] Note Patient Name: Merlyn Perez MR #: [id number] : 1940 Assessment and Plan: 82 y.o. female w/ PMHx of HTN, HLD, anxiety/depression, asthma, GERD, recent admission for CVA (11/27/2022) on Plavix, w/ hx of R frontal, parietal, and L temporal infarctions, h/o CCY who presented to [facility] on 12/17/2022 as transfer from [facility] with RLQ back pain, concern for [...] N/A Weekdays 5a-5p 229-1604 Nights & Weekends [phone] Subjective: Patient's NG tube re-positioned overnight. Having [...] Details - Home Living: Daughter completes financial service representative, medication management (post CVA, prior to CVA, pt was independent w/ med management). Pt endorsing x1 fall recently Prior Level of Function Level of [place] - Transfers/Ambulation/Mobility: Independent with household ambulation, Independent with functional transfers Level of [place] - ADLs: Independent Level of [place] - Homemaking: Independent Driving: Patient drives (pt's [...] Estimated Energy Needs Total Energy Estimated Needs: 7081-9134 Method for Estimating Needs: 22-25 kcals/kg IBW (BMI 24.9: 64kg) Total Protein Estimated Needs: 76-96g Method for Estimating Needs: 1.2-1.5g/kg IBW (BMI 24.9: 64kg) Fluid Needs Total Fluid Estimated Needs: 7713-1536 Method for Estimating Needs: 22-25ml/kg IBW (BMI [...] Estimated Energy Needs Total Energy Estimated Needs: 5429-4354 Method for Estimating Needs: 22-25 kcals/kg IBW (BMI 24.9: 64kg) Total Protein Estimated Needs: 76-96g Method for Estimating Needs: 1.2-1.5g/kg IBW (BMI 24.9: 64kg) Fluid Needs Total Fluid Estimated Needs: 8356-4198 Method for Estimating Needs: 22-25ml/kg IBW (BMI 24.9: 64kg) TPN Changes: -increase to goal: 80g AA, 240g Dextrose, 45g ILE at 70ml/hr (1586 kcals, 80g PRO) -increase to [address], LD, [facility] Inpatient Progress Note 12/28/2022 Merlyn Perez 1940 [id number] Assessment/Plan: Merlyn Perez is a 82 y.o. female with a history of HTN and recent CVA 11/27/22 who presented to [facility] 12/14/22 and again 12/16/22 for recurrent abdominal pain. OSH CT C/A/P 12/17/22 noted enlarged mediastinal LNs with 5mm RLL pulmonary nodule and RLQ 1.7x1.6cm mass abbutting the distal small bowel. Transferred to [facility] 12/17/2022 for SurgOnc evaluation. S/p right [...] AP as able and statin.Follow-up outpatient with [facility] (AVS updated). HTN Urgency: per hx, amlodipine, atenolol, lisinopril and Lasix held given NPO status. On scheduled IV metoprolol and has PRNs. Pain control given this is the source of elevated BP. Code Status: full, discussed on admit. DVT Prophylaxis: Lovenox. Current living situation: home. Expected disposition: SNF vs [facility]. Estimated discharge date: 3-4 days pending specialty [...] Daily insulin lispro 0-30 Units Subcutaneous Q4H PENDING SALE TO [facility] lidocaine 1 patch Transdermal Daily methocarbamol 1 g Intravenous Q8H metoprolol 5 mg Intravenous Q6H PENDING SALE TO [facility] pantoprazole 40 mg Oral Daily potassium chloride [...] Note Patient Name: Merlyn Perez MR #: [id number] : 1940 Assessment and Plan: 82 y.o. female w/ PMHx of HTN, HLD, anxiety/depression, asthma, GERD, recent admission for CVA (11/27/2022) on Plavix, w/ hx of R frontal, parietal, and L temporal infarctions, h/o CCY who presented to [facility] on 12/17/2022 as transfer from [facility] with RLQ back pain, concern for [...] N/A Weekdays 5a-5p 229-1604 Nights & Weekends [phone] Subjective: NAEO. Not passing flatus. Still remains [...] Lu MD PGY5 12/28/2022 6:49 AM Pager: [phone] Associated attestation - Kell Deras MD - [...] lab work is also reassuring. [facility] will [facility] for pain management consult. [...] Disposition: Rehab Facility Post-Acute Patient Choice 1: [facility] Post-Acute Patient Choice 2: [facility] Options Reviewed: Possible expense, Explained services/benefits Reason [...] no TPN on discharge. Referrals sent to [facility]- Spoke with Ani siddiqui for [facility] phone [phone] and they can accept with no NG. They can accept TPN if needed. No covid testing needed. 2. . [facility]- pending. Spoke with pt and daughter in room and their first choice is [facility]. Will follow up with Ani siddiqui Tuesday timing when medically will be ready. Surgical Oncology Daily Progress Note Patient Name: Merlyn Perez MR #: [id number] : 1940 Assessment and Plan: 82 y.o. female w/ PMHx of HTN, HLD, anxiety/depression, asthma, GERD, recent admission for CVA (11/27/2022) on Plavix, w/ hx of R frontal, parietal, and L temporal infarctions, h/o CCY who presented to [facility] on 12/17/2022 as transfer from [facility] with RLQ back pain, concern for [...] N/A Weekdays 5a-5p 229-1604 Nights & Weekends [phone] Subjective: Still feeling distended this morning. Had [...] Lu MD PGY5 12/27/2022 7:09 AM Pager: [phone] Associated attestation - Kell Deras MD - [...] week since she had meaningful nutritional intake. [facility] Inpatient Progress Note 12/27/2022 Merlyn Perez 1940 [id number] Assessment/Plan: Merlyn Perez is a 82 y.o. female with a history of HTN and recent CVA 11/27/22 who presented to [facility] 12/14/22 and again 12/16/22 for recurrent abdominal pain. OSH CT C/A/P 12/17/22 noted enlarged mediastinal LNs with 5mm RLL pulmonary nodule and RLQ 1.7x1.6cm mass abbutting the distal small bowel. Transferred to [facility] 12/17/2022 for SurgOnc evaluation. S/p right [...] as able. Continued statin. Follow-up outpatient with [facility] (AVS updated). Meds held 12/25 for [...] Note Patient Name: Merlyn Perez MR #: [id number] : 1940 Assessment and Plan: 82 y.o. female w/ PMHx of HTN, HLD, anxiety/depression, asthma, GERD, recent admission for CVA (11/27/2022) on Plavix, w/ hx of R frontal, parietal, and L temporal infarctions, h/o CCY who presented to [facility] on 12/17/2022 as transfer from [facility] with RLQ back pain, concern for [...] ASA/plavix - NPO, IVF - NG to [facility] - OOB/IS/AAT - will discuss timing for repeat imaging to further evaluate persistent nausea DVT ppx Lovenox GI ppx N/A Weekdays 5a-5p 229-1604 Nights & Weekends [phone] Subjective: Continues to endorse nausea this AM. [...] Lu MD PGY5 12/26/2022 8:19 AM Pager: [phone] Associated attestation - Doug Olvera MD - 12/26/2022 10:41 AM EDT I have reviewed the notes, assessments, and/or procedures performed by resident, I concur with her/his documentation. I have seen and examined this patient on rounds. ROS performed All Negative Except HPI . I have reviewed the note written by the resident or DELINQUENCY COUNSELOR and concur with the findings / results / plan. The following were reviewed: labs, microbiology, pathology, radiology,cardiology, medications, transcriptions. Any addendums to care and plan are listed below. I have reviewed ct images Ileus Rlq pain Scan today with po and iv [facility] 12/26/2022 Merlyn Perez 1940 [id number] Assessment/Plan: Merlyn Perez is a 82 y.o. female with a history of HTN and recent CVA 11/27/22 who presented to [facility] 12/14/22 and again 12/16/22 for recurrent abdominal pain. OSH CT C/A/P 12/17/22 noted enlarged mediastinal LNs with 5mm RLL pulmonary nodule and RLQ 1.7x1.6cm mass abbutting the distal small bowel. Transferred to [facility] 12/17/2022 for SurgOnc evaluation. S/p right [...] as able. Continued statin. Follow-up outpatient with [facility] (AVS updated). Meds held 12/25 for [...] 12/23/22 0652 12/20/22 0750 INR 1.1 1.1 [facility] Inpatient Progress Note 12/25/2022 Merlyn Perez 1940 [id number] Assessment/Plan: Merlyn Perez is a 82 y.o. female with a history of HTN and recent CVA 11/27/22 who presented to [facility] 12/14/22 and again 12/16/22 for recurrent abdominal pain. OSH CT C/A/P 12/17/22 noted enlarged mediastinal LNs with 5mm RLL pulmonary nodule and RLQ 1.7x1.6cm mass abbutting the distal small bowel. Transferred to [facility] 12/17/2022 for SurgOnc evaluation. S/p right [...] as able. Continued statin. Follow-up outpatient with [facility] (AVS updated). Meds held 12/25 for ileus. HTN: per hx, continued atenolol. Resumed lisinopril 12/24, will resume Lasix once tolerating PO well. Meds held 12/25 for ileus. Code Status: full, discussed on admit. DVT Prophylaxis: Lovenox. Current living situation: home. Expected disposition: SNF vs [facility]. Estimated discharge date: 2-3 days pending specialty clearance. *Family updated bedside 12/25. Subjective: VSS, NGT placed by SurgOnc today. NGT with immense output, patient not a fan of NGT but discussed why needs to remain. Daughter stated Neurology f/u not until Fall, would like to f/u at [facility] - updated AVS. Discussed case with [...] Note Patient Name: Merlyn Perez MR #: [id number] : 1940 Assessment and Plan: 82 y.o. female w/ PMHx of HTN, HLD, anxiety/depression, asthma, GERD, recent admission for CVA (11/27/2022) on Plavix, w/ hx of R frontal, parietal, and L temporal infarctions, h/o CCY who presented to [facility] on 12/17/2022 as transfer from [facility] with RLQ back pain, concern for [...] N/A Weekdays 5a-5p 229-1604 Nights & Weekends 229-4240 Subjective: Ongoing nausea. Multiple episodes of emesis. [...] Lu MD PGY5 12/25/2022 6:55 AM Pager: [phone] Associated attestation - Doug Olvera MD - 12/25/2022 9:09 AM EDT I have reviewed the notes, assessments, and/or procedures performed by resident, I concur with her/his documentation. I have seen and examined this patient on rounds. ROS performed All Negative Except HPI . I have reviewed the note written by the resident or DELINQUENCY COUNSELOR and concur with the findings / results [...] Note Patient Name: Merlyn Perez MR #: [id number] : 1940 Assessment and Plan: 82 y.o. female w/ PMHx of HTN, HLD, anxiety/depression, asthma, GERD, recent admission for CVA (11/27/2022) on Plavix, w/ hx of R frontal, parietal, and L temporal infarctions, h/o CCY who presented to [facility] on 12/17/2022 as transfer from [facility] with RLQ back pain, concern for [...] N/A Weekdays 5a-5p 229-1604 Nights & Weekends [phone] Subjective: Pain is tolerable with medication, still [...] Lu MD PGY5 12/24/2022 7:33 AM Pager: [phone] Associated attestation - Kell Deras MD - [...] PT OT eval. Okay for James removal [facility] 12/24/2022 Merlyn Perez 1940 [id number] Assessment/Plan: Merlyn Perez is a 82 y.o. female with a history of HTN and recent CVA 11/27/22 who presented to [facility] 12/14/22 and again 12/16/22 for recurrent abdominal pain. OSH CT C/A/P 12/17/22 noted enlarged mediastinal LNs with 5mm RLL pulmonary nodule and RLQ 1.7x1.6cm mass abbutting the distal small bowel. Transferred to [facility] 12/17/2022 for SurgOnc evaluation. S/p right [...] living situation: home. Expected disposition: SNF vs [facility]. Estimated discharge date: 1-2 days pending specialty [...] temporal infarctions and cholecystectomy who presented to [facility] on 12/17/2022 as transfer from [facility] with RLQ back pain, concern for [...] MD General Surgery PGY-1 Please contact surgical international coordinator warehouse operations manager 5PM-6AM and weekends BLUE Pager - [phone] SUBJECTIVE Patient evaluated post operatively. Pain moderately [...] IMAGING/LABS Interval imaging and laboratory results reviewed [facility] Inpatient Progress Note 12/23/2022 Merlyn Perez 1940 [id number] Assessment/Plan: Merlyn Perez is a 82 y.o. female with a history of remote viral encephalitis and recent CVA 11/27/22 who presented to [facility] 12/14/22 and again 12/16/22 for recurrent acute epigastric abdominal pain. CTA C/A/P 12/17/22 with no PE, enlarged mediastinal LN with 5mm pulmonary nodule RLL and RLQ 1.7 x 1.6cm mass abbutting the distal small bowel. She was transferred to [facility] 12/17/2022 for surgical oncology and GI [...] terminal ileum resection 12/[address] Deras. Epigastric pain: Rule out GERD/gastritis/duodenitis. Continued PPI. EGD 12/20/2022 negative. GI following. Constipation: Stool burden shown on imaging. Improved with bowel regimen. Acute metabolic encephalopathy: Likely related to baseline cognitive impairment, hospital-acquired delirium. Reported mood changes with Dilaudid. . Uses narcotics sparingly. EKG pending. If QTc stable, can use Seroquel and Haldol if needed. Resolved. Enlarged Mediastinal Lymph Nodes: Noted on report at [facility], of unclear etiology. Concerning in setting of [...] Estimated Energy Needs Total Energy Estimated Needs: 1597-4204 Method for Estimating Needs: 22-25 kcals/kg IBW (BMI 24.9: 64kg) Total Protein Estimated Needs: 76-96g Method for Estimating Needs: 1.2-1.5g/kg IBW (BMI 24.9: 64kg) Assessed by: Shraddha Gomez RD, LD, [facility] Vocera: [phone] [facility] Progress Note 12/22/2022 Merlyn Perez 1940 [id number] Assessment/Plan: Merlyn Perez is a 82 y.o. female with a history of remote viral encephalitis and recent CVA 11/27/22 who presented to [facility] 12/14/22 and again 12/16/22 for recurrent acute epigastric abdominal pain. CTA C/A/P 12/17/22 with no PE, enlarged mediastinal LN with 5mm pulmonary nodule RLL and RLQ 1.7 x 1.6cm mass abbutting the distal small bowel. She was transferred to [facility] 12/17/2022 for surgical oncology and GI [...] Mediastinal Lymph Nodes: Noted on report at [facility], of unclear etiology. Concerning in setting of [...] Note Patient Name: Merlyn Perez MR #: [id number] : 1940 Assessment and Plan: 82 y.o. female w/ PMHx of HTN, HLD, anxiety/depression, asthma, GERD, recent admission for CVA (11/27/2022) on Plavix, w/ hx of R frontal, parietal, and L temporal infarctions, h/o CCY who presented to [facility] on 12/17/2022 as transfer from [facility] with RLQ back pain, concern for [...] N/A Weekdays 5a-5p 229-1604 Nights & Weekends 229-1382 Subjective: NAEO. Slept more, gabapentin helpful with [...] Lu MD PGY5 12/22/2022 6:49 AM Pager: [phone] Associated attestation - Kell Deras MD - [...] spent on consultation and coordination of care. [facility] Progress Note 12/21/2022 Merlyn Perez 1940 [id number] Assessment/Plan: Merlyn Perez is a 82 y.o. female with a history of remote viral encephalitis and recent CVA 11/27/22 who presented to [facility] 12/14/22 and again 12/16/22 for recurrent acute epigastric abdominal pain. CTA C/A/P 12/17/22 with no PE, enlarged mediastinal LN with 5mm pulmonary nodule RLL and RLQ 1.7 x 1.6cm mass abbutting the distal small bowel. She was transferred to [facility] 12/17/2022 for surgical oncology and GI [...] Mediastinal Lymph Nodes: Noted on report at [facility], of unclear etiology. Concerning in setting of [...] labs, diagnostics, vitals including pulse ox, and wireless consultant/other provider recommendations. VSS. Endoscopy yesterday unremarkable. [...] Note Patient Name: Merlyn Perez MR #: [id number] : 1940 Assessment and Plan: 82 y.o. female w/ PMHx of HTN, HLD, anxiety/depression, asthma, GERD, recent admission for CVA (11/27/2022) on Plavix, w/ hx of R frontal, parietal, and L temporal infarctions, h/o CCY who presented to [facility] on 12/17/2022 as transfer from [facility] with RLQ back pain, concern for [...] N/A Weekdays 5a-5p 229-1604 Nights & Weekends [phone] Subjective: Did a little better last night [...] Lu MD PGY5 12/21/2022 7:00 AM Pager: [phone] Associated attestation - Kell Deras MD - [...] arise going forward. Trenton Porter MD [facility] Pulmonary Critical Care Physicians Subjective: Breathing [...] BRENDAN; small RLL nodule; mild AP LAD [facility] Progress Note 12/20/2022 Merlyn Perez 1940 [id number] Assessment/Plan: Merlyn Perez is a 82 y.o. female with a history of remote viral encephalitis and recent CVA 11/27/22 who presented to [facility] 12/14/22 and again 12/16/22 for recurrent acute epigastric abdominal pain. CTA C/A/P 12/17/22 with no PE, enlarged mediastinal LN with 5mm pulmonary nodule RLL and RLQ 1.7 x 1.6cm mass abbutting the distal small bowel. She was transferred to [facility] 12/17/2022 for surgical oncology and GI [...] Mediastinal Lymph Nodes: Noted on report at [facility], of unclear etiology. Concerning in setting of [...] Note Patient Name: Merlyn Perez MR #: [id number] : 1940 Assessment and Plan: 82 y.o. female w/ PMHx of HTN, HLD, anxiety/depression, asthma, GERD, recent admission for CVA (11/27/2022) on Plavix, w/ hx of R frontal, parietal, and L temporal infarctions, h/o CCY who presented to [facility] on 12/17/2022 as transfer from [facility] with RLQ back pain, concern for [...] N/A Weekdays 5a-5p 229-1604 Nights & Weekends [phone] Subjective: More confused overnight. Did tolerate bowel [...] Lu MD PGY5 12/20/2022 7:23 AM Pager: [phone] Associated attestation - Kell Deras MD - [...] (11/27/2022) on Plavix; CCY who presented to [facility] on 12/17/2022 as transfer from [facility] with RLQ back pain, imaging with [...] PT/INR in AM 12/20 Pao Serrano CNP [facility] Inpatient Progress Note 12/19/2022 Merlyn Perez 1940 [id number] Assessment/Plan: Merlyn Perez is a 82 y.o. female with a history of remote viral encephalitis and recent CVA 11/27/22 who presented to [facility] 12/14/22 and again 12/16/22 for recurrent acute epigastric abdominal pain. CTA C/A/P 12/17/22 with no PE, enlarged mediastinal LN with 5mm pulmonary nodule RLL and RLQ 1.7 x 1.6cm mass abbutting the distal small bowel. She was transferred to [facility] 12/17/2022 for surgical oncology and GI assessment. RLQ Abdominal Mass: Shown on imaging. Could be contributing to abdominal pain. Colonoscopy pending 12/20/2022. GI following. Epigastric pain: Rule out GERD/gastritis/duodenitis. Continued PPI. EGD pending 12/20/2022. GI following. Constipation: Stool burden shown on imaging. Continued bowel regimen. Enlarged Mediastinal Lymph Nodes: Noted on report at [facility], of unclear etiology. Concerning in setting of [...] Note Patient Name: Merlyn Perez MR #: [id number] : 1940 Assessment and Plan: 82 y.o. female w/ PMHx of HTN, HLD, anxiety/depression, asthma, GERD, recent admission for CVA (11/27/2022) on Plavix, w/ hx of R frontal, parietal, and L temporal infarctions, h/o CCY who presented to [facility] on 12/17/2022 as transfer from [facility] with RLQ back pain, concern for [...] N/A Weekdays 5a-5p 229-1604 Nights & Weekends [phone] Subjective: NAEO. Resting comfortably this AM Objective: [...] Lu MD PGY5 12/19/2022 7:36 AM Pager: [phone] Associated attestation - Kell Deras MD - [...] Spent in Direct Patient Care: 15 Narrative: Help Desk Manager attempted to visit. Explored from a person( possible family member) at the bedside pt was asleep. Help Desk Manager let the person know about head loft worker availability as needed. She thanked head loft worker. Pastoral Care team will remain available to [...] Bereavement Resources Spiritual Plan of Care Patient's Religion Needs Assessment Religion Connection Religion Home Anabaptism Affiliation Local Nondenominational Name Religion Resources Religion Rituals Religion Materials Provided Expressed Outcomes Family / Caregiver Needs Assessment Relationship to Patient Affect at Time of Visit Emotions Expressed During Visit Expressed Concerns Regarding Illness Sources of Hope and Strength Support and Participation in Care Grief Assessment Spiritual Assessment Interventions with Family / Friend Outcomes with Family / Friend SERENITY Reyes, Staff Help Desk Manager, Pastoral Care [facility] Office: [phone] [facility] Inpatient Progress Note 12/18/2022 Merlyn Perez 1940 [id number] Assessment/Plan: Merlyn Perez is a 82 y.o. female with a history of remote viral encephalitis and recent CVA 11/27/22 who presented to [facility] 12/14/22 and again 12/16/22 for recurrent acute epigastric abdominal pain. CTA C/A/P 12/17/22 with no PE, enlarged mediastinal LN with 5mm pulmonary nodule RLL and RLQ 1.7 x 1.6cm mass abbutting the distal small bowel. She was transferred to [facility] 12/17/2022 for surgical oncology and GI assessment. RLQ Abdominal Mass: Shown on imaging. Could be contributing to abdominal pain. Colonoscopy pending 12/20/2022. GI following. Epigastric pain: Rule out GERD/gastritis/duodenitis. Continued PPI. EGD pending 12/20/2022. GI following. Constipation: Stool burden shown on imaging. Continued bowel regimen. Enlarged Mediastinal Lymph Nodes: Noted on report at [facility], of unclear etiology. Concerning in setting of [...] 0448 INR 1.1 documented in this encounter [facility] 01-07-2023 Hospital course Narrative [facility] DISCHARGE SUMMARY Merlyn Perez Account: [id number] Admitted: 12/17/2022 Discharge Date/Time: 01/07/23 / 11:52 AM Handoff to PCP Routine hospital follow up Continued bowel regimen Clinical Summary Merlyn Perez is a 82 y.o. female with a history of HTN and recent CVA 11/27/22 who presented to [facility] 12/14/22 and again 12/16/22 for recurrent abdominal pain. OSH CT C/A/P 12/17/22 noted RLQ mass and enlarged mediastinal LNs, RLL pulmonary nodule. Transferred to [facility] 12/17/2022 for SurgOnc evaluation. S/p right [...] DAPT. On regular diet. Discharged back to [facility]. HTN: adjusted medications to Metoprolol, lisinopril Uterine Prolapse: Follows with Dr. Hartley in [place]. PVR unremarkable this admission. Dr. Smiley (uro-railroad car truck builder) declined pessary this admission, ok to follow [...] times a day . naloxone 4 mg/actuation Walton Commonly known as: NARCAN Administer 1 spray [...] methocarbamoL 500 MG tablet naloxone 4 mg/actuation Walton Information about where to get these medications is not yet available Ask your nurse or doctor about these medications bisacodyL 10 mg suppository metoprolol tartrate 25 MG tablet ondansetron 4 MG disintegrating tablet simethicone 40 mg/0.6 mL drops Physician(s) Family: Milo Hercules MD, , Address: [address] [place] [address] [address] / [place] [address] Follow Up: Vito Stevenson MD [address] [facility] [address] [facility] [address] Follow up [address] chest prior Kevyn Metzger MD [address] [facility] [place] [address] [facility] [address] Schedule an appointment as soon as possible for a visit [address] [place] [address] Additional Information: Patient seen and examined day of discharge. For more information regarding patient's care, including complete radiology reports, please contact [facility] at Patient seen and examined. [...] 01/07/23, 11:52 AM documented in this encounter [facility] 01-07-2023 Consult note Associated Order (s): IP CONSULT TO DIETITIAN Nutrition Care Follow Up: Consult-pt request Pt doing better with diet, eating more of meals per pt and daughter. Dislikes Gage Boost Breeze (order IS for bates flavor). Discussed ONS options for pt moving forward, also briefly discussed low fiber diet; all questions answered at this time. Plan is for discharge this afternoon to [facility]. Shraddha Gomez RD, LD, [facility] Vocera: [phone] Associated Order(s): IP CONSULT TO UROLOGICAL GYNECOLOGY GYNECOLOGY CONSULT NOTE Patient Name: Merlyn Perez MR #: [id number] ASSESSMENT AND PLAN: Complete uterovaginal prolapse Assessment [...] - Follows with Dr. Milly Hartley in [place], they had discussed surgical management before her [...] She follows with Dr. Milly Hartley in [place] for Urology care, it sounds like previous [...] RIGHT COLECTOMY; Surgeon: Kell Deras MD; Location: [facility] Main OR; Service: General Surgery COLONOSCOPY N/A 12/20/2022 Procedure: COLONOSCOPY; Surgeon: Storm Byers MD; Location: [facility] Endo; Service: Gastroenterology EGD N/A 12/20/2022 Procedure: ESOPHAGOGASTRODUODENOSCOPY; Surgeon: Storm Byers MD; Location: [facility] Endo; Service: Gastroenterology FamHx: History reviewed. [...] her long-term follow-up with her provider in [place], records will be sent upon her discharge. Associated Order(s): IP CONSULT TO PAIN TEAM ANCILLARY Date: 12/28/2022 Patient name: Merlyn Perez Date Of : 1940 Admit Date: 12/17/2022 Back pain Assessment & Plan Reason For Hospitalization: ICD-10 M54.9 Merlyn Perez presented 12/17/2022 a 82 y.o. female with a history of HTN and recent CVA 11/27/22 who presented to [facility] 12/14/22 and again 12/16/22 for recurrent abdominal pain. OSH CT C/A/P 12/17/22 noted enlarged mediastinal LNs with 5 mm RLL pulmonary nodule and RLQ 1.7x1.6cm mass abbutting the distal small bowel. Transferred to [facility] 12/17/2022 for SurgOnc evaluation. S/p right [...] y/o female presenting 12/17/2022 who presented to [facility] 12/14/22 and again 12/16/22 for recurrent abdominal pain. OSH CT C/A/P 12/17/22 noted enlarged mediastinal LNs with 5 mm RLL pulmonary nodule and RLQ 1.7x1.6cm mass abbutting the distal small bowel. Transferred to [facility] 12/17/2022 for SurgOnc evaluation. S/p right [...] RIGHT COLECTOMY; Surgeon: Kell Deras MD; Location: [facility] Main OR; Service: General Surgery COLONOSCOPY N/A 12/20/2022 Procedure: COLONOSCOPY; Surgeon: Storm Byers MD; Location: [facility] Endo; Service: Gastroenterology EGD N/A 12/20/2022 Procedure: ESOPHAGOGASTRODUODENOSCOPY; Surgeon: Storm Byers MD; Location: [facility] Endo; Service: Gastroenterology History reviewed. No [...] Consult: Discharge Plan: Post-Acute Patient Choice 1: [facility] Post-Acute Patient Choice 2: [facility] IPR Options Reviewed: Possible expense, Explained services/benefits [...] the past and would like to Use [facility] IPR at [place]. Daughter states that she will discuss with [...] daughter, referral placed on EMR Kimberly KO,RN,CCM international coordinator Weekend -Contingent Utilization Management Secure Chat [...] this plan of care: Pt presents to [facility] s/p R hemicolectomy per Dr. Deras. PMhx: [...] assist, with device, with bilateral UE support Section Cutter - Standing Static: wheeled walker Loss of Balance- Standing Static: (generalized unsteadiness and postural sway, increased posterior leaning w/ increased time upright) Standing Balance - Dynamic: Contact guard assist, Minimal assist, with device, with bilateral UE support Section Cutter - Standing Dynamic: same assistant therapy aide used for static standing tasks Loss of Balance- Standing Dynamic: (generalized unsteadiness and postural sway, increased posterior leaning w/ increased time upright) Bed Mobility Rolling: Moderate assist, Maximal assist, Head of bed elevated Supine to Sit: Moderate assist, Maximal assist, Head of bed elevated (x1-2 person assist) Sit to Supine: (pt in bedside chair at end of session) Section Cutter: bedrails, bed positioning mechanics, patient slide sheet / friction-reducing device Transfers Sit to Stand: Contact guard assist Bed to Chair: Contact guard assist, Minimal assist (x1-2 assist for safety; fading w/ increase time) Stand Pivot Transfers: Contact guard assist Section Cutter: wheeled walker Gait/Locomotion Gait Assistance: Contact guard [...] Details - Home Living: Daughter completes financial service representative, medication management (post CVA, prior to CVA, pt was independent w/ med management). Pt endorsing x1 fall recently Prior Level of Function Level of [place] - Transfers/Ambulation/Mobility: Independent with household ambulation, Independent with functional transfers Level of [place] - ADLs: Independent Level of [place] - Homemaking: Independent Driving: Patient drives (pt's [...] RIGHT COLECTOMY; Surgeon: Kell Deras MD; Location: [facility] Main OR; Service: General Surgery COLONOSCOPY N/A 12/20/2022 Procedure: COLONOSCOPY; Surgeon: Storm Byers MD; Location: [facility] Endo; Service: Gastroenterology EGD N/A 12/20/2022 Procedure: ESOPHAGOGASTRODUODENOSCOPY; Surgeon: Storm Byers MD; Location: [facility]; Service: Gastroenterology For complete objective data, detailed [...] Chair Transfers: Minimal assist, 2 person assist Section Cutter: wheeled walker Home Living Obtained Home Living [...] Details - Home Living: Daughter completes financial service representative, medication management (post CVA, prior to CVA, pt was independent w/ med management). Pt endorsing x1 fall recently Prior Level of Function Level of [place] - Transfers/Ambulation/Mobility: Independent with household ambulation, Independent with functional transfers Level of [place] - ADLs: Independent Level of [place] - Homemaking: Independent Driving: Patient drives (pt's [...] RIGHT COLECTOMY; Surgeon: Kell Deras MD; Location: [facility] Main OR; Service: General Surgery COLONOSCOPY N/A 12/20/2022 Procedure: COLONOSCOPY; Surgeon: Storm Byers MD; Location: [facility] Endo; Service: Gastroenterology EGD N/A 12/20/2022 Procedure: ESOPHAGOGASTRODUODENOSCOPY; Surgeon: Storm Byers MD; Location: [facility] Endo; Service: Gastroenterology For complete objective [...] [id number] Date of Consult: 12/17/22 MR #: [id number] : 1940 Physicians: Milo Hercules MD (Family); [...] CVA who presents as a transfer from [place] for evaluation of abnormal imaging with c/f [...] note were not included. Neurology Inpatient Consult [facility] 12/17/2022 Pacheco Mejía MD [facility] Patient: Merlyn Perez Date of : 1940 (82 y.o. female) Referring Provider: Refer to consult order in electronic medical record PCP: Milo Hercules MD ASSESSMENT: 82 y.o. female with history of HTN, HLD, anxiety/depression, asthma, GERD, recent stroke (11/27/2022), history CCY presented to [facility] on 12/17/2022 with abdominal mass. Neurology [...] Her stroke was taken care of at [facility]. Per recent discharge summary: Media Information [...] & GROSS MOTOR: Abnormal Movements: None Coordination Siuvzu-ln-Dsro: Normal Coordination: Rvgi-Yass-Cgss:Normal Rapid Alternating Movements: Normal Drift: None Tone: [...] temporal infarctions, h/o CCY who presented to [facility] on 12/17/2022 as transfer from [facility] with RLQ back pain, concern for [...] MD General Surgery PGY-2 Please contact surgical international coordinator warehouse operations manager 5PM-6AM and weekends - #[phone] BLUE Pager - #[phone] HISTORY OF PRESENT ILLNESS Merlyn Perez is a 82 y.o. female with history of HTN, HLD, anxiety/depression, asthma, GERD, recent admission for CVA (11/27/2022) on Plavix, w/ hx of R frontal, parietal, and L temporal infarctions, h/o CCY who presented to [facility] on 12/17/2022 as transfer from [facility] with RLQ back pain, concern for mass. Patient states she presented to [place] ED after blood pressure had been high [...] Codin - High documented in this encounter [facility] 01-06-2023 Hospital Discharg e instructions Loli Gonzáles RN - 01/06/2023 9:24 AM EDT [place] VALENTINE. Another fax number that can be used is Fax--[phone] documented in this encounter [facility] 01-03-2023 Miscellaneous Notes Formattin g of this [...] follow up with Urologist Milly Hartley in [place] to continue discussion of known diagnosis of [...] the AM and PM to work with PROCUREMENT DIRECTOR. . Will follow up as appropriate. Patient [...] - Follows with Dr. Milly Hartley in [place], they had discussed surgical management before her [...] Estimated Energy Needs Total Energy Estimated Needs: 1182-9326 Method for Estimating Needs: 22-25 kcals/kg IBW (BMI 24.9: 64kg) Total Protein Estimated Needs: 76-96g Method for Estimating Needs: 1.2-1.5g/kg IBW (BMI 24.9: 64kg) Fluid Needs Total Fluid Estimated Needs: 2225-3161 Method for Estimating Needs: 22-25ml/kg IBW (BMI 24.9: 64kg) TPN recommendations: 50g AA, 150g Dextrose, 45g ILE at 50ml/hr. No insulin to be added initially. Tentative goal rate 4/4 of 80g AA, 240g Dextrose, 45g ILE at 70ml/hr (1586 kcals, 80g PRO). Shraddha Gomez RD, LD, [facility] Patient evaluated at bedside. In brif, [...] MD General Surgery PGY-2 Please contact surgical international coordinator warehouse operations manager 5PM-6AM and weekends at [phone] BLUE Pager - #[phone] PSA called this RN to come to [...] (82 y.o.) Date of Service: 12/23/2022 CSN: [id number] Procedure(s): LAPAROSCOPIC RIGHT COLECTOMY Pre-Operative Diagnoses: * BOWEL OBSTRUCTION Post-Operative Diagnoses: Surgeon(s) and Role: * Kell Deras MD - Primary * Devon Varner MD - Resident - Assisting Anesthesiologist: Damon Ruiz MD Sheet Music Salesperson: Kirsten Mckeon RN Sheet Music Salesperson Relief: John Bess RN; Meghana Rodríguez RN Scrub Person: ST Daina Flux Mixer: Isamar Mcintyre Float: Joan Robles RN Operative [...] 82 y.o. Date of Service: 12/23/2022 CSN: [id number] Procedure(s): Laparoscopic right colectomy with terminal ileal resection Omental flap Pre-Operative Diagnoses: BOWEL OBSTRUCTION Post-Operative Diagnoses: same Surgeon(s): Kell Deras MD Risk Control Consultant: Devon Driscoll MD PGY3 Anesthesiologist: Damon Ruiz MD Anesthesia type: general Estimate blood loss: 50cc Indications: 82-year-old female who was transferred to [facility] for evaluation given complaints of abdominal pain with distention and concern on CT scan for a terminal ileal mass with possible active extravasation. Upon arrival to [facility] she was found to be stable [...] as in the small bowel and a qhic-af-hzfq ileocolic anastomosis was created using a purple [...] (11/27/2022) on Plavix; CCY who presented to [facility] on 12/17/2022 as transfer from [facility] with RLQ back pain, imaging with [...] surgery resident. Pacheco Mejía MD, MSL, ABPN [facility] Neurohospitalist Dr Mejía requested MRI brain and CTA head/neck merged to [facility] from [facility]. Navigator called radiology at [place]. They will push films to [facility] in the next 15 minutes. 1515- Spoke / [facility] file room. Images have arrived from [place]. Tech will merge with Epic SUSAN. documented in this encounter [facility] 12-23-2022 History and physi kalen note INTERVAL HISTORY AND PHYSICAL Patient Name: Merlyn Perez Admit Date: [id number] MR #: [id number] : 1940 The H&P has been reviewed and the patient has been examined. I concur with the findings of the H&P. There are no significant changes. It is appropriate to proceed with the planned procedure. Kell Deras MD 12/23/2022 7:05 AM Source Note - Mary Villela MD - 12/17/2022 3:18 PM EDT [facility] History and Physical Note 12/17/22 Merlyn Perez 1940 [id number] Assessment/Plan: Merlyn Perez is a 82 y.o. female with a history of remote viral encephalitis and recent CVA 11/27/22 who presented to [facility] 12/14/22 and again 12/16/22 for recurrent acute epigastric abdominal pain. CXR without acute infiltrate. CTA C/A/P 12/17/22 with no PE, enlarged mediastinal LN with 5mm pulmonary nodule RLL and RLQ 1.7 x 1.6cm mass abbutting the distal small bowel. She was transferred to [facility] 12/17/2022 for surgical oncology and GI assessment. RLQ Abdominal Mass: Noted >1cm mass abutting distal small bowel. Characterized by CT at [facility]. May be causing obstruction periodically with the presenting abdominal pain. Scheduled Tylenol with PRN Morphine for pain control. Plan for EGD and colonoscopy for evaluation 12/20/22. Started bowel regimen with plan for Golytely prep 12/19/22. Enlarged Mediastinal Lymph Nodes: Noted on report at [facility], of unclear etiology. Concerning in setting of [...] hospital records. I spent 105 minutes reviewing [facility] records and directly assessing patient at bedside [...] Merlyn Perez Admit Date: [id number] MR #: [id number] : 1940 The H&P has been reviewed [...] [id number] Date of Consult: 12/17/22 MR #: [id number] : 1940 Physicians: Milo Hercules MD (Family); [...] CVA who presents as a transfer from [place] for evaluation of abnormal imaging with c/f [...] U/L 34 GLUCOSE mg/dL 104* Dario Henderson [facility] History and Physical Note 12/17/22 Merlyn Perez 1940 [id number] Assessment/Plan: Merlyn Perez is a 82 y.o. female with a history of remote viral encephalitis and recent CVA 11/27/22 who presented to [facility] 12/14/22 and again 12/16/22 for recurrent acute epigastric abdominal pain. CXR without acute infiltrate. CTA C/A/P 12/17/22 with no PE, enlarged mediastinal LN with 5mm pulmonary nodule RLL and RLQ 1.7 x 1.6cm mass abbutting the distal small bowel. She was transferred to [facility] 12/17/2022 for surgical oncology and GI assessment. RLQ Abdominal Mass: Noted >1cm mass abutting distal small bowel. Characterized by CT at [facility]. May be causing obstruction periodically with the presenting abdominal pain. Scheduled Tylenol with PRN Morphine for pain control. Plan for EGD and colonoscopy for evaluation 12/20/22. Started bowel regimen with plan for Golytely prep 12/19/22. Enlarged Mediastinal Lymph Nodes: Noted on report at [facility], of unclear etiology. Concerning in setting of [...] hospital records. I spent 105 minutes reviewing [facility] records and directly assessing patient at bedside [...] TOTAL mg/dL 0.7 documented in this encounter [facility] 12-20-[address] Byers Aware of patient c/o stomach and back pain no order for now . Floor nurse updated patient status re. pain Report given to floor nurse Griselda Barraza Sedation and monitoring provided by Dr. Aaron. See anesthesia note for vitals, assessments, and medications given. documented in this encounter [facility] 12-17-2022 Emergency departm ent Note Pt BP is 190/83, this RN contacted Mary Panda MD about BP and HR, states That BP is fine, She looks fine This RN contacted Mary Panda MD about BP of 190/83 after labetalol. states That BP looks fine. She looks fine. ED PROVIDER NOTE [facility] EMERGENCY DEPARTMENT NAME: Merlyn Perez AGE: 82 y.o. : 1940 VISIT DATE: 12/17/2022 CSN: [id number] PCP: Milo Hercules MD Chief Complaint Patient [...] provides information External Data Reviewed: notes. Details: [facility] Medical Records Department [address] [place] [address] Emergency Department Summary 12/16/22 MR#: [id number] Acct: [id number] Name: MERLYN PEREZ Rep #: [id number] : 1940 82 From: Geraldo Medina DO [...] or anything that would help acid reflux/GERD/gastritis. [facility] Medical History Anxiety Anxiety Asthma [...] Pulmonary nodule Colonic mass Yayo Landry MD [address] [facility] [address] [place] [address] Referral ID Status Reason Start Date Expiration Date Visits Requested Visits Authorized [id number] Authorized Specialty Services Required/Pat ient's Best Interest 12/27/2022 12/27/2023 1 1 Specialty Diagnoses / Procedures Referred By Carina gomez Referred To Contact Radiology Diagnoses Pulmonary nodule Procedures CT Chest Without Contrast Trenton Porter MD [address] [place] [address] [address] [place] [address] Referral ID Status Reason Start Date Expiration Date V isits Requested Visits Authorized [id number] New Request 03/22/2023 03/21/2024 1 1 Additional Source Comments INFORMATION SOURCE (unrecogn ized section and content) DATE CREATED AUTHOR AUTHOR'S ORGANIZ ATION 08/06/2020 [facility] DATE CREATED AUTHOR AUTHOR'S ORGANIZ ATION 03/01/2022 [facility] DATE CREATED AUTHOR AUTHOR'S ORGANIZ ATION 07/23/2023 [facility] Reason for Visit (unrecogniz ed section and content) Specialty Diagnoses / Procedures Referred By Contac t Referred To Contact Diagnoses Colonic mass Abd Mass Referral ID Status Reason Start Date Expiration Date Visits Re quested Visits Authorized [id number] 1 1 Reason Comments Post-op Scheduled Active [...] at 1005 0324 (Given - Provider: Fatou Paris, NORMA)0827 (Given - Provider: Ana Bowman, RN)1420 [...] Fatou Paris RN) 2312 (Given - Provider: Mimi Fish RN) naloxone (NARCAN) injection 0.1 mg(Linked [...]
Care Teams (unrecognized sec tion and content) Machine Plate Stacker Relationship Specialty Start Date End Date Milo Hercules MD [address] [address] PCP - General Endocrinology/Metabolism 12/17/22 FOR RECORDS [...] BE BASED ON THE PRIMARY CLINICAL RECORDS. [facility] provides no warranty or guarantee of the accuracy or completeness of information in this document.
[2023-10-12 17:47] LABS: Color, Urine Yellow (Yellow); Glucose, Dipstick Normal (Normal); Ketone-Dipstick Negative (Negative); Leukocyte Esterase-Dipstick 500 /ul (Negative); Nitrite-Dipstick Negative (Negative); Occult Blood-Urine 25 /ul (Negative); Protein-Dipstick Negative (Negative); Specific Gravity, Urine 1.025 (1.002-1.030); Urine Bilirubin Dipstick Negative (Negative); Urine Clarity Clear (Clear); Urine Urobilinogen Normal (Normal)
[2023-10-12 18:18] LABS: Calcium Oxalate Crystals Ur RARE /hpf (<or=2+); Squamous Epithelial Cells - UA 0-5 SEEN /hpf (5-10); Transitional Epithelial - Ur 0-5 SEEN /hpf (0-5); White Blood Cells 0-5 SEEN /hpf (0-5)
[2023-10-12 18:19] LABS: Red Blood Cells-Urine 0-5 SEEN /hpf (0-5); Yeast-Urine RARE /hpf (None Seen)
== END | disposition home or self-care (01) ==
PROVIDERS: PCP Family Medicine; Referring Provider Family Medicine; Visit Provider Family Medicine
DX: R73.02 Impaired glucose tolerance (oral) (principal); E55.9 Vitamin D deficiency, unspecified; I10 Essential (primary) hypertension
CPT/HCPCS: 81001

== ENCOUNTER → 2023-12-12 | Outpatient (CLI) | payer MEDICARE, OTHER, SELFPAY ==
--- NOTE | 2023-12-12 14:35 | STRESSREP ---
Stress Test Report Pharmacologic myocardial perfusion stress test. 83-year-old lady with a history of chest pain Resting EKG demonstrates sinus rhythm with a rate of 79 bpm. Resting blood pressure is 148/98 mmHg. 0.4 mg of regadenoson was infused per usual protocol followed by rapid intravenous saline flush injection. Continuous EKG monitoring was performed. The maximum heart rate was 94 bpm which was 68% of max impacted heart rate the maximum workload was 1 metabolic equivalent. At rest there were no ST or T wave changes noted to suggest ischemia and at peak infusion nonspecific ST changes were noted which did not meet the criteria for ischemia. No clinical angina is noted. The final blood pressure was 150/84 mmHg. Myocardial perfusion protocol. 11.8 mCi of technetium 99m sestamibi was injected at rest. 0.4 mg of regadenoson was infused per usual protocol. At peak infusion 34 mCi of technetium 99m sestamibi was injected stress images were obtained stress and rest images were reconstructed and compared in the short axis vertical long and horizontal long axis. Gated images were also obtained. Perfusion SPECT analysis: Review of the stress images demonstrate normal uptake of tracer noted in all areas of the myocardium. The resting images similar demonstrated normal uptake of tracer noted in all areas of the myocardium. No areas of reversibility are noted to suggest ischemia and no previous infarct is noted. Gated SPECT analysis: The gated ejection fraction is 75%. Conclusion: Normal pharmacologic myocardial perfusion stress test. Preserved ejection fraction.
== END | disposition home or self-care (01) ==
LOC: CVS 07:30
PROVIDERS: PCP Family Medicine; Referring Provider Family Medicine; Visit Provider Family Medicine
DX: R07.9 Chest pain, unspecified (principal)
CPT/HCPCS: 78452; 93017; A9500; A4216; J2785

== ENCOUNTER → 2023-12-14 | Outpatient (CLI) | payer MEDICARE, OTHER, SELFPAY ==
[2023-12-14 15:35] LABS: Anion Gap 4 (5-15); BUN 14 mg/dL (7-18); BUN/Creat Ratio 19.3 RATIO (10-20); Calcium,Total 8.6 mg/dL (8.5-10.1); Chloride 105 mmol/L (98-107); Creatinine, Serum 0.73 mg/dL (0.55-1.02); EST Glomerular Filtration Rate 82 mL/min (>60); Est Glom Filt Rate - Afr Amer 99 mL/min (>60); Glucose 107 mg/dL (74-106); Magnesium 2.3 mg/dL (1.6-2.6); Sodium Level 140 mmol/L (136-145)
== END | disposition home or self-care (01) ==
LOC: MFPLAB 11:57
PROVIDERS: PCP Family Medicine; Visit Provider Family Medicine
DX: I10 Essential (primary) hypertension (principal)
CPT/HCPCS: 36415; 80048; 83735

== ENCOUNTER → 2024-04-06 | Outpatient (CLI) | payer MEDICARE, OTHER, SELFPAY ==
[2024-04-06 17:34] LABS: Absolute Lymphocyte Count 0.95 X10^3/uL (0.83-4.51); Basophil# 0.06 X10^3/uL; Basophil% 1.4 % (0-1); Eosinophil# 0.12 X10^3/uL; Eosinophils% 2.7 % (0-5); Hematocrit 37.6 % (37-47); Hemoglobin 12.7 g/dL (12.0-15.0); Lymphocyte # 0.95 X10^3/ul (0.83-4.51); Lymphocyte % 21.4 % (19-41); Mean Corp Hgb Conc 33.8 g/dL (32-36); Mean Corpuscular Hgb 32.3 pg (27.0-32.0); Mean Corpuscular Volume 95.7 fL (81-99); Mean Platelet Vol. 9.9 fl (6.2-12.0); Monocyte# 0.29 X10^3/uL; Monocyte% 6.5 % (0-10); NRBC Flagged by Analyzer 0 % (0-5); Neutrophil # 2.96 X10^3/uL (2.7-7.7); Neutrophil % 66.9 % (47-70); Platelet Count 160 K/mm3 (150-450); RBC Distribution Width CV 13.2 % (11.6-14.6); RBC Distribution Width SD 46.6 fl (35.1-43.9); Red Blood Count 3.93 M/mm3 (4.2-5.4); White Blood Count 4.4 K/mm3 (4.4-11.0)
[2024-04-06 17:50] LABS: Vitamin D,25 Hydroxy 39.3 ng/mL
[2024-04-06 18:17] LABS: ALB/GLOB Ratio 1.1 RATIO (0.9-2.4); AST(SGOT) 27 U/L (15-37); Alanine Aminotransfer ALT/SGPT 35 U/L (13-56); Albumin, Serum 3.8 g/dL (3.2-5.0); Alkaline Phosphatase 93 U/L (45-117); Anion Gap 8 (5-15); BUN 17 mg/dL (7-18); BUN/Creat Ratio 19.5 RATIO (10-20); Calcium,Total 9.4 mg/dL (8.5-10.1); Chloride 104 mmol/L (98-107); Cholesterol 125 mg/dL (200); Creatinine, Serum 0.87 mg/dL (0.55-1.02); EST Glomerular Filtration Rate 66 mL/min (>60); Est Glom Filt Rate - Afr Amer 80 mL/min (>60); Globulin 3.6 g/dL (2.2-4.2); Glucose 188 mg/dL (74-106); High Density Lipoprotein 30 mg/dL; Magnesium 2.2 mg/dL (1.6-2.6); Potassium 3.8 mmol/L (3.5-5.1); Protein, Total 7.4 g/dL (6.4-8.2); Sodium Level 140 mmol/L (136-145); Thyroid Stim Hormone (TSH) 3.52 uIU/mL (0.358-3.74); Triglycerides 295 mg/dL; Very Low Density Lipoprotein 59 mg/dL (5-40)
[2024-04-07 11:15] LABS: Hemoglobin A1c 5.5 % (3.8-5.6)
== END | disposition home or self-care (01) ==
LOC: MFPLAB 14:30
PROVIDERS: PCP Family Medicine; Visit Provider Family Medicine
DX: I10 Essential (primary) hypertension (principal); M85.80 Other specified disorders of bone density and structure, unspecified site; R73.02 Impaired glucose tolerance (oral)
CPT/HCPCS: 36415; 80053; 80061; 82306; 83036; 83735; 84443; 85025

== ENCOUNTER → 2024-04-10 | Outpatient (CLI) | payer MEDICARE, OTHER, SELFPAY ==
[2024-04-10 09:50] LABS: Bacteria 0 SEEN /hpf (None Seen); Mucous, Urine 0 SEEN /hpf (<or=2+); Red Blood Cells-Urine 0 SEEN /hpf (0-5)
[2024-04-10 12:02] LABS: Color, Urine Yellow (Yellow); Glucose, Dipstick Normal (Normal); Ketone-Dipstick Negative (Negative); Leukocyte Esterase-Dipstick 25 /ul (Negative); Nitrite-Dipstick Negative (Negative); Occult Blood-Urine Negative /ul (Negative); Protein-Dipstick Negative (Negative); Specific Gravity, Urine 1.005 (1.002-1.030); Urine Bilirubin Dipstick Negative (Negative); Urine Clarity Clear (Clear); Urine Urobilinogen Normal (Normal)
[2024-04-10 12:18] LABS: Squamous Epithelial Cells - UA 0-5 SEEN /hpf (5-10); White Blood Cells 0-5 SEEN /hpf (0-5)
== END | disposition home or self-care (01) ==
LOC: LABSPEC 09:48
PROVIDERS: PCP Family Medicine; Visit Provider Family Medicine
DX: I10 Essential (primary) hypertension (principal); R73.02 Impaired glucose tolerance (oral); M85.80 Other specified disorders of bone density and structure, unspecified site
CPT/HCPCS: 81001

== ENCOUNTER → 2024-05-04 | Outpatient (CLI) | payer MEDICARE, OTHER, SELFPAY ==
--- NOTE | 2024-05-04 13:09 | CT_ITS ---
HISTORY: neuroendocrine tumor looking for mets. TECHNIQUE: CT of the chest was performed after the intravenous administration of 100 mL Isovue-300. Coronal and sagittal reformatted images. Individualized dose optimization techniques were used for this CT. 813 images. COMPARISON: 04/22/2023, 03/21/2023. FINDINGS: CENTRAL AIRWAYS: Patent. LUNGS: Chronic calcified left upper lobe granuloma. New 2-3 mm noncalcified left upper, right upper, and right middle lobe lobe nodules. New 5 mm left upper lobe nodule adjacent to the anterior mediastinum. Increased size and number of left lower lobe pulmonary nodules measuring up to 4 mm. Increased size and number of right lower lobe pulmonary nodules measuring up to 7 mm. PLEURA: No pneumothorax or significant pleural effusion. HEART/PERICARDIUM: Heart within normal limits in size. Mild pericardial effusion. AORTA/VESSELS: No thoracic aortic aneurysm or dissection flap. Mild atherosclerosis. No large central filling defect identified in the pulmonary arteries. MEDIASTINUM/MIROSLAVA: Stable mildly enlarged precarinal lymph node calcified prevascular lymph nodes noted.. OSSEOUS STRUCTURES: Degenerative change without suspicious osteoblastic or osteolytic lesion.. UPPER ABDOMEN: Refer to CT abdomen regarding lymphadenopathy. Probable mixing artifact in the main portal vein. CT/Chest WITH Contrast IMPRESSION: Increased size and number of bilateral pulmonary nodules, concerning for progression of metastatic disease. Unchanged mild mediastinal lymphadenopathy. Mild pericardial effusion. Electronically Signed: Meagan Michael MD at 13:33 EDT ,
--- NOTE | 2024-05-04 13:09 | CT_ITS ---
INDICATION: TRIPHASIC NEUROENDOCRINE PROTOCAL-IV ONLY EXAMINATION: CT ABDOMEN AND PELVIS WITH AND WITHOUT CONTRAST - CT Abdomen And Pelvis WO/W Contrast Injection TECHNIQUE: Helically acquired images were obtained of the abdomen and pelvis both before and after IV contrast. The protocol utilizes one or more of the following dose reduction techniques: automated exposure control, adjustment of mA and/or kV according to patient size,and/or use of iterative reconstruction technique. IV Contrast dosage and agent: 100 mL of Isovue 300 Oral contrast: None. RADIATION DOSAGE (If Supplied By Facility): CTDIvol = ( 17.34 ) mGy, DLP = ( 2088.68 ) mGycm COMPARISON: Prior study dated: 04/22/2023 FINDINGS: LOWER CHEST: There are multiple small pulmonary nodule seen at the lung bases, which will be further evaluated on the dedicated chest CT . These appear increased from the previous study. For instance in the right lower lobe measuring 0.6 cm on series 5 image 2. No cardiomegaly. Small pericardial effusion. LIVER: Homogeneous. No focal mass. GALLBLADDER AND BILIARY TREE: Cholecystectomy. Mild intrahepatic biliary ductal dilatation. Normal caliber common bile duct. No ductal filling defect. PANCREAS: No focal cystic or solid mass. SPLEEN: Normal size without focal cystic or solid mass. Calcified granulomata. ADRENAL GLANDS: No nodules. KIDNEYS AND URETERS: Normal renal size and position. No hydronephrosis. PERITONEUM: No ascites or free air. No other fluid collection. No enhancing pelvic mass. BOWEL: Normal caliber of the stomach. Small bowel is normal in caliber without obstruction. Fluid-filled appearance in the right lower abdomen. Anastomosis seen in the anterior right mid abdomen. Colonic diverticulosis without diverticulitis. . LYMPH NODES: Prominent retroperitoneal lymph nodes are seen. For instance there is a right para-aortic node which measures 1.1 cm short axis on series 5 image 51. This previously measured 0.9 cm on the study from 2022. Right pelvic lymph node measures 1 cm short axis on series 5 image 80, previously 0.8 cm. VESSELS: Aorta is non-dilated. URINARY BLADDER: Unremarkable. REPRODUCTIVE ORGANS: No pelvic masses. ABDOMINAL WALL: No discrete abdominal or pelvic wall hernia. BONES: No lytic or blastic abnormality. Mild degenerative changes of the spine. Mild degenerative changes in both hips. Chronic healed left inferior pubic ramus fracture. CT/CT Abd/Pelvis W/WO Contrast IMPRESSION: New/increased pulmonary nodules seen at the lung bases which will be further evaluated on the dedicated chest CT. This raises concern for metastatic disease. Mildly prominent retroperitoneal/pelvic lymph nodes, which are increased from previous imaging. This is concerning for possible metastatic disease. Postsurgical changes of the bowel. No bowel mass identified. Electronically Signed: Maycol Wolfe MD at 15:00 EDT ,
[2024-05-04 13:39] LABS: Absolute Lymphocyte Count 1.15 X10^3/uL (0.83-4.51); Absolute Neutrophil Count 3.8 X10^3/uL (2.0-7.7); Basophil# 0.08 X10^3/uL; Basophil% 1.4 % (0-1); Eosinophil# 0.11 X10^3/uL; Eosinophils% 1.9 % (0-5); Hematocrit 38.8 % (37-47); Hemoglobin 12.8 g/dL (12.0-15.0); Lymphocyte # 1.15 X10^3/ul (0.83-4.51); Lymphocyte % 19.6 % (19-41); Mean Corpuscular Hgb 31.7 pg (27.0-32.0); Mean Platelet Vol. 9.6 fl (6.2-12.0); Monocyte# 0.65 X10^3/uL; Monocyte% 11.1 % (0-10); NRBC Flagged by Analyzer 0 % (0-5); Neutrophil # 3.82 X10^3/uL (2.7-7.7); Neutrophil % 64.8 % (47-70); Platelet Count 148 K/mm3 (150-450); RBC Distribution Width CV 12.7 % (11.6-14.6); RBC Distribution Width SD 44.9 fl (35.1-43.9); Red Blood Count 4.04 M/mm3 (4.2-5.4); White Blood Count 5.9 K/mm3 (4.4-11.0)
[2024-05-04 14:14] LABS: AST(SGOT) 19 U/L (15-37); Alanine Aminotransfer ALT/SGPT 28 U/L (13-56); Albumin, Serum 3.8 g/dL (3.2-5.0); Alkaline Phosphatase 85 U/L (45-117); Anion Gap 4 (5-15); BUN 19 mg/dL (7-18); BUN/Creat Ratio 22.5 RATIO (10-20); Calcium,Total 9.3 mg/dL (8.5-10.1); Chloride 106 mmol/L (98-107); Creatinine, Serum 0.84 mg/dL (0.55-1.02); EST Glomerular Filtration Rate 68 mL/min (>60); Est Glom Filt Rate - Afr Amer 83 mL/min (>60); Globulin 3.8 g/dL (2.2-4.2); Glucose 111 mg/dL (74-106); Potassium 4.2 mmol/L (3.5-5.1); Protein, Total 7.6 g/dL (6.4-8.2); Sodium Level 140 mmol/L (136-145)
== END | disposition home or self-care (01) ==
PROVIDERS: PCP Family Medicine; Referring Provider Internal Medicine Hematology & Oncology; Visit Provider Internal Medicine Hematology & Oncology
DX: D3A.8 Other benign neuroendocrine tumors (principal); R91.1 Solitary pulmonary nodule; D69.6 Thrombocytopenia, unspecified
CPT/HCPCS: 36415; 71260; 74178; 80053; 85025; Q9967

== ENCOUNTER → 2024-08-21 | Outpatient (CLI) | payer MEDICARE, OTHER, SELFPAY ==
[2024-08-21 17:46] LABS: Absolute Lymphocyte Count 1.08 X10^3/uL (0.83-4.51); Absolute Neutrophil Count 3.8 X10^3/uL (2.0-7.7); Basophil# 0.05 X10^3/uL; Basophil% 0.9 % (0-1); Eosinophil# 0.14 X10^3/uL; Eosinophils% 2.5 % (0-5); Hematocrit 38.6 % (37-47); Hemoglobin 12.8 g/dL (12.0-15.0); Lymphocyte # 1.08 X10^3/ul (0.83-4.51); Lymphocyte % 19.1 % (19-41); Mean Corp Hgb Conc 33.2 g/dL (32-36); Mean Corpuscular Hgb 31.4 pg (27.0-32.0); Mean Corpuscular Volume 94.8 fL (81-99); Monocyte# 0.53 X10^3/uL; Monocyte% 9.4 % (0-10); NRBC Flagged by Analyzer 0 % (0-5); Neutrophil % 67.4 % (47-70); Platelet Count 149 K/mm3 (150-450); RBC Distribution Width CV 12.5 % (11.6-14.6); RBC Distribution Width SD 43.5 fl (35.1-43.9); Red Blood Count 4.07 M/mm3 (4.2-5.4); White Blood Count 5.6 K/mm3 (4.4-11.0)
[2024-08-21 18:25] LABS: AST(SGOT) 19 U/L (15-37); Alanine Aminotransfer ALT/SGPT 30 U/L (13-56); Albumin, Serum 3.8 g/dL (3.2-5.0); Alkaline Phosphatase 85 U/L (45-117); Anion Gap 4 (5-15); BUN 15 mg/dL (7-18); BUN/Creat Ratio 17.6 RATIO (10-20); Calcium,Total 9.2 mg/dL (8.5-10.1); Chloride 103 mmol/L (98-107); Cholesterol 120 mg/dL (200); Creatinine, Serum 0.85 mg/dL (0.55-1.02); EST Glomerular Filtration Rate 68 mL/min (>60); Est Glom Filt Rate - Afr Amer 82 mL/min (>60); Globulin 3.8 g/dL (2.2-4.2); Glucose 90 mg/dL (74-106); High Density Lipoprotein 27 mg/dL; Potassium 3.9 mmol/L (3.5-5.1); Protein, Total 7.6 g/dL (6.4-8.2); Sodium Level 138 mmol/L (136-145); Triglycerides 270 mg/dL; Very Low Density Lipoprotein 54 mg/dL (5-40)
[2024-08-21 18:35] LABS: Vitamin D,25 Hydroxy 61.4 ng/mL
[2024-08-21 19:00] LABS: Hemoglobin A1c 5.7 % (3.8-5.6)
== END | disposition home or self-care (01) ==
LOC: MFPLAB 14:41
PROVIDERS: PCP Family Medicine; Visit Provider Family Medicine
DX: I10 Essential (primary) hypertension (principal); M85.80 Other specified disorders of bone density and structure, unspecified site; R73.02 Impaired glucose tolerance (oral)
CPT/HCPCS: 36415; 80053; 80061; 82306; 83036; 85025

== ENCOUNTER 2024-11-02 13:46 | Outpatient (CLI) | payer MEDICARE, OTHER, SELFPAY ==
--- NOTE | 2024-11-02 14:14 | CT_ITS ---
PROCEDURE: CT of the abdomen/pelvis without and with intravenous contrast. REASON FOR EXAM: Follow-up neuroendocrine tumor. History of lung nodules. TECHNIQUE: Contiguous axial CT images were obtained through the abdomen/pelvis without and with intravenous contrast. Sagittal and coronal reformats were created. COMPARISON: 05/04/2024 FINDINGS: For findings in the chest, please refer to same-day chest CT report. Bones are osteopenic with degenerative changes in the spine. Proximal femurs are intact. Patchy wall thickening of the stomach may be due to lack of distention versus peristalsis. No focal abnormality of the urinary bladder. Surgical clips in the gallbladder fossa. Minimal dilation of the intrahepatic bile ducts is unchanged. No discrete liver lesion. No significant dilation of the extrahepatic biliary tree. Portal vein is patent. Adrenal glands, spleen, and pancreas are unremarkable. The kidneys are symmetric in size and enhancement. No dominant solid renal mass or obstructive uropathy. There is some borderline dilation of the ureters, without evidence of obstructing calculus. There is some prolapse of the uterus through the central pelvic floor. Subcentimeter cyst anterior right kidney image 49 of the axial data set. The abdominal aorta is normal in caliber. Scattered patchy wall thickening of the colon may be due to lack of distention versus peristalsis or chronic diverticular disease. No acute diverticulitis. Small bowel/colonic anastomosis right mid abdomen. No abnormally dilated bowel segments or free intraperitoneal air. A 12 mm soft tissue nodule in the lateral right hemipelvis axial image 82 of the arterial phase axial images and a mildly enlarged lower right retroperitoneal lymph node image 57 measuring 14 mm, not significantly different from the previous study. Some borderline left pelvic sidewall lymph nodes are relatively unchanged. Some mildly enlarged pelvic/retroperitoneal lymph nodes are not significantly changed from 05/04/2024. Findings most compatible with stable disease. No dominant mesenteric mass or intraluminal bowel lesion. CT/CT Abd/Pelvis W/WO Contrast IMPRESSION: No acute findings in the abdomen/pelvis. Moderate colonic diverticulosis. There is some mild dilation of the ureters, without evidence of obstructing kalen culus. The appearance could be due to a prolapse of the uterus and bladder are through the central pelvic floor. Please refer to same day chest CT for findings in the thorax. IMPRESSION: One or more dose reduction techniques were used (e.g., Automated exposure contr ol, adjustment of the mA and/or kV according to patient size, use of iterative reconstruction technique). Reading Location: [facility]
--- NOTE | 2024-11-02 14:14 | CT_ITS ---
PROCEDURE: CT of the chest with IV contrast. REASON FOR EXAM: Follow-up neuroendocrine tumor. Lung nodules TECHNIQUE: After IV contrast administration, contiguous axial CT images were obtained through the chest. Sagittal and coronal reformats were created. COMPARISON: 05/04/2024 FINDINGS: The bones are osteopenic with degenerative changes in the spine. Ribs appear intact. For findings in the upper abdomen, please refer to same day abdominal/pelvic CT report. Included breast and thyroid tissues show no specific abnormality. Heart is not enlarged. Similar small pericardial effusion. Thoracic aorta normal in caliber. No axillary or supraclavicular adenopathy. A few borderline central mediastinal lymph nodes are not significantly different. Central airway and central pulmonary arteries are clear. The lungs are mildly emphysematous. No dense focal airspace consolidation, pneumothorax, or pleural effusion. Mild patchy ground-glass density in the lower lobes may be due to hypoventilatory change. A dominant 9 mm nodule posterior left upper lobe image 31 of the axial lung windows not significantly changed. A 4 mm nodule in the anterior right lower lobe axial lung window image 49 on the prior study has resolved. The majority of the noncalcified bilateral pulmonary nodules are not significantly changed. CT/Chest WITH Contrast IMPRESSION: No acute findings in the chest. Overall, no significant change of bilateral noncalcified pulmonary nodules. Si milar borderline mediastinal lymph nodes. Findings most compatible with stable disease. One or more dose reduction techniques were used (e.g., Automated exposure contr ol, adjustment of the mA and/or kV according to patient size, use of iterative reconstruction technique). Reading Location: [facility]
[2024-11-02 14:34] LABS: Absolute Lymphocyte Count 1.15 X10^3/uL (0.83-4.51); Absolute Neutrophil Count 3.4 X10^3/uL (2.0-7.7); Basophil# 0.06 X10^3/uL; Basophil% 1.1 % (0-1); Eosinophil# 0.13 X10^3/uL; Eosinophils% 2.4 % (0-5); Hematocrit 36.9 % (37-47); Hemoglobin 12.3 g/dL (12.0-15.0); Lymphocyte # 1.15 X10^3/ul (0.83-4.51); Lymphocyte % 21.6 % (19-41); Mean Corp Hgb Conc 33.3 g/dL (32-36); Mean Corpuscular Hgb 31.7 pg (27.0-32.0); Mean Corpuscular Volume 95.1 fL (81-99); Mean Platelet Vol. 9.7 fl (6.2-12.0); Monocyte# 0.53 X10^3/uL; NRBC Flagged by Analyzer 0 % (0-5); Platelet Count 139 K/mm3 (150-450); RBC Distribution Width CV 12.6 % (11.6-14.6); RBC Distribution Width SD 43.4 fl (35.1-43.9); Red Blood Count 3.88 M/mm3 (4.2-5.4); White Blood Count 5.3 K/mm3 (4.4-11.0)
[2024-11-02 15:30] LABS: AST(SGOT) 24 U/L (15-37); Alanine Aminotransfer ALT/SGPT 31 U/L (13-56); Albumin, Serum 3.9 g/dL (3.2-5.0); Alkaline Phosphatase 86 U/L (45-117); Anion Gap 5 (5-15); BUN 14 mg/dL (7-18); Calcium,Total 9.5 mg/dL (8.5-10.1); Chloride 101 mmol/L (98-107); Creatinine, Serum 0.82 mg/dL (0.55-1.02); EST Glomerular Filtration Rate 71 mL/min (>60); Est Glom Filt Rate - Afr Amer 85 mL/min (>60); Globulin 3.8 g/dL (2.2-4.2); Glucose 88 mg/dL (74-106); Magnesium 2.1 mg/dL (1.6-2.6); Phosphorus 3.4 mg/dL (2.5-4.9); Potassium 3.8 mmol/L (3.5-5.1); Protein, Total 7.7 g/dL (6.4-8.2); Sodium Level 138 mmol/L (136-145)
== END 2024-11-02 23:59 | disposition home or self-care (01) ==
PROVIDERS: PCP Family Medicine; Referring Provider Internal Medicine Hematology & Oncology; Visit Provider Internal Medicine Hematology & Oncology
DX: D3A.8 Other benign neuroendocrine tumors (principal); R91.1 Solitary pulmonary nodule
CPT/HCPCS: 36415; 71260; 74178; 80053; 83735; 84100; 85025; Q9967

== ENCOUNTER → 2024-12-18 | Outpatient (CLI) | payer MEDICARE, OTHER, SELFPAY ==
[2024-12-18 11:40] LABS: Mucous, Urine 0 SEEN /hpf (<or=2+)
[2024-12-18 15:27] LABS: Color, Urine Straw (Yellow); Glucose, Dipstick Normal (Normal); Ketone-Dipstick Negative (Negative); Leukocyte Esterase-Dipstick 500 /ul (Negative); Nitrite-Dipstick Negative (Negative); Occult Blood-Urine 10 /ul (Negative); Protein-Dipstick 15 mg/dl (Negative); Specific Gravity, Urine 1.015 (1.002-1.030); Urine Bilirubin Dipstick Negative (Negative); Urine Clarity Clear (Clear); Urine Urobilinogen Normal (Normal)
[2024-12-18 16:09] LABS: Absolute Lymphocyte Count 1.14 X10^3/uL (0.83-4.51); Absolute Neutrophil Count 2.7 X10^3/uL (2.0-7.7); Basophil# 0.06 X10^3/uL; Basophil% 1.3 % (0-1); Eosinophil# 0.14 X10^3/uL; Hemoglobin 12.8 g/dL (12.0-15.0); Lymphocyte # 1.14 X10^3/ul (0.83-4.51); Lymphocyte % 24.7 % (19-41); Mean Corp Hgb Conc 33.7 g/dL (32-36); Mean Corpuscular Hgb 32.4 pg (27.0-32.0); Mean Corpuscular Volume 96.2 fL (81-99); Mean Platelet Vol. 9.4 fl (6.2-12.0); Monocyte% 10.8 % (0-10); NRBC Flagged by Analyzer 0 % (0-5); Neutrophil # 2.73 X10^3/uL (2.7-7.7); Neutrophil % 59.1 % (47-70); Platelet Count 120 K/mm3 (150-450); RBC Distribution Width CV 12.7 % (11.6-14.6); RBC Distribution Width SD 45.2 fl (35.1-43.9); Red Blood Count 3.95 M/mm3 (4.2-5.4); White Blood Count 4.6 K/mm3 (4.4-11.0)
[2024-12-18 16:13] LABS: Bacteria 1+ /hpf (None Seen); Red Blood Cells-Urine 0-5 SEEN /hpf (0-5); Squamous Epithelial Cells - UA 5-10 SEEN /hpf (5-10); White Blood Cells 0-5 SEEN /hpf (0-5)
[2024-12-18 21:19] LABS: ALB/GLOB Ratio 1.3 RATIO (0.9-2.4); AST(SGOT) 29 U/L (<=31); Alanine Aminotransfer ALT/SGPT 34 U/L (<=34); Albumin, Serum 4.3 g/dL (3.4-4.8); Alkaline Phosphatase 93 U/L (35-104); Anion Gap 11 (5-15); BUN 16 mg/dL (4-19); BUN/Creat Ratio 17.5 RATIO (10-20); Calcium,Total 9.5 mg/dL (7.6-11.0); Carbon Dioxide 26.9 mmol/L (21.0-32.0); Chloride 102 mmol/L (98-108); Cholesterol 119 mg/dL (<=200); Creatinine, Serum 0.94 mg/dL (0.70-1.20); EST Glomerular Filtration Rate 61 (>60); Globulin 3.2 g/dL (2.2-4.2); Glucose 105 mg/dL (70-99); High Density Lipoprotein 30 mg/dL; Low Density Lipoprotein Calc. 40 mg/dL; Magnesium 1.9 mg/dL (1.5-2.2); Potassium 4.2 mmol/L (3.3-5.1); Protein, Total 7.5 g/dL (5.9-8.4); Sodium Level 139 mmol/L (133-145); Total Bilirubin 0.39 mg/dL (0.00-1.30); Triglycerides 242 mg/dL; Very Low Density Lipoprotein 48 mg/dL (5-40); Vitamin D,25 Hydroxy 37.2 ng/mL (30-100); cholesterol:hdl ratio screen 3.94
[2024-12-18 21:51] LABS: Hemoglobin A1c 5.5 % (<=5.6)
== END | disposition home or self-care (01) ==
LOC: MFPLAB 11:10
PROVIDERS: PCP Family Medicine; Referring Provider Family Medicine; Visit Provider Family Medicine
DX: I10 Essential (primary) hypertension (principal); R73.02 Impaired glucose tolerance (oral); E55.9 Vitamin D deficiency, unspecified
CPT/HCPCS: 36415; 80053; 80061; 81001; 82306; 83036; 83735; 85025

== ENCOUNTER → 2025-04-12 | Outpatient (CLI) | payer MEDICARE, OTHER, SELFPAY ==
[2025-04-12 15:20] LABS: Hematocrit 38.2 % (37-47); Hemoglobin 12.7 g/dL (12.0-15.0); Immature Granulocytes Count 0.090 X10^3/uL (0.0-0.0); Mean Corp Hgb Conc 33.2 g/dL (32-36); Mean Corpuscular Volume 94.1 fL (81-99); Mean Platelet Vol. 9.8 fl (6.2-12.0); NRBC Flagged by Analyzer 0 % (0-5); Platelet Count 138 K/mm3 (150-450); RBC Distribution Width CV 12.9 % (11.6-14.6); RBC Distribution Width SD 44.1 fl (35.1-43.9); Red Blood Count 4.06 M/mm3 (4.2-5.4); White Blood Count 4.9 K/mm3 (4.4-11.0)
[2025-04-12 16:38] LABS: AST(SGOT) 26 U/L (<=31); Alanine Aminotransfer ALT/SGPT 29 U/L (<=34); Albumin, Serum 4.3 g/dL (3.4-4.8); Alkaline Phosphatase 90 U/L (35-104); Anion Gap 10 (5-15); BUN 19 mg/dL (4-19); BUN/Creat Ratio 21.2 RATIO (10-20); Calcium,Total 9.9 mg/dL (7.6-11.0); Carbon Dioxide 28.2 mmol/L (21.0-32.0); Chloride 101 mmol/L (98-108); Cholesterol 136 mg/dL (<=200); Globulin 3.3 g/dL (2.2-4.2); Glucose 107 mg/dL (70-99); Low Density Lipoprotein Calc. 23 mg/dL; Potassium 4.1 mmol/L (3.3-5.1); Triglycerides 438 mg/dL; Very Low Density Lipoprotein 88 mg/dL (5-40); Vitamin B12 270 pg/mL (180-914); Vitamin D,25 Hydroxy 32.1 ng/mL (30-100); cholesterol:hdl ratio screen 5.25
== END | disposition home or self-care (01) ==
LOC: MFPLAB 12:14
PROVIDERS: PCP Family Medicine; Referring Provider Family Medicine; Visit Provider Family Medicine
DX: I10 Essential (primary) hypertension (principal); R73.02 Impaired glucose tolerance (oral); E55.9 Vitamin D deficiency, unspecified; R53.83 Other fatigue
CPT/HCPCS: 36415; 80053; 80061; 82306; 82607; 83036; 84439; 85025

== ENCOUNTER → 2025-05-16 | Outpatient (CLI) | payer MEDICARE, OTHER, SELFPAY ==
--- NOTE | 2025-05-16 11:56 | RAD_ITS ---
PROCEDURE: LUMBAR SPINE 2 OR 3 VIEWS 05/16/2025 REASON FOR EXAM: LEG PAIN TECHNIQUE: LUMBAR SPINE 2 OR 3 VIEWS FINDINGS: BONES: Five [id number] lumbar vertebral bodies. No fracture or focal osseous lesion. Anatomic spinal alignment. DISC/DEGENERATIVE CHANGES: Disc space narrowing throughout, greatest at L4-L5. Small vertebral endplate osteophytes at several levels. SOFT TISSUES: No acute abnormality seen. Right mid abdominal surgical clips. RAD/Lumbar Spine 2 or 3 Views IMPRESSION: 1. No acute osseous abnormality. 2. Spondylosis and degenerative disc disease. Reading Location: [id number]
== END | disposition home or self-care (01) ==
PROVIDERS: PCP Family Medicine
DX: M79.604 Pain in right leg (principal); M79.605 Pain in left leg
CPT/HCPCS: 72100

== ENCOUNTER → 2025-07-12 | Outpatient (CLI) | payer MEDICARE, OTHER, SELFPAY ==
[2025-07-12 12:08] LABS: Mucous, Urine 0 SEEN /hpf (<or=2+); Red Blood Cells-Urine 0 SEEN /hpf (0-5)
[2025-07-12 12:36] LABS: Hematocrit 38.6 % (37-47); Hemoglobin 13.0 g/dL (12.0-15.0); Immature Granulocytes Count 0.030 X10^3/uL (0.0-0.0); Mean Corp Hgb Conc 33.7 g/dL (32-36); Mean Corpuscular Volume 95.1 fL (81-99); Mean Platelet Vol. 10.0 fl (6.2-12.0); NRBC Flagged by Analyzer 0 % (0-5); Platelet Count 108 K/mm3 (150-450); RBC Distribution Width CV 12.6 % (11.6-14.6); RBC Distribution Width SD 43.7 fl (35.1-43.9); Red Blood Count 4.06 M/mm3 (4.2-5.4); White Blood Count 4.2 K/mm3 (4.4-11.0)
[2025-07-12 13:31] LABS: AST(SGOT) 29 U/L (<=31); Alanine Aminotransfer ALT/SGPT 31 U/L (<=34); Albumin, Serum 4.3 g/dL (3.4-4.8); Alkaline Phosphatase 89 U/L (35-104); Anion Gap 9 (5-15); BUN 23 mg/dL (4-19); BUN/Creat Ratio 27.0 RATIO (10-20); Calcium,Total 9.9 mg/dL (7.6-11.0); Carbon Dioxide 26.0 mmol/L (21.0-32.0); Chloride 102 mmol/L (98-108); Cholesterol 123 mg/dL (<=200); Globulin 3.2 g/dL (2.2-4.2); Glucose 121 mg/dL (70-99); Low Density Lipoprotein Calc. 61 mg/dL; Potassium 4.4 mmol/L (3.3-5.1); Triglycerides 166 mg/dL; Very Low Density Lipoprotein 33 mg/dL (5-40); Vitamin D,25 Hydroxy 32.1 ng/mL (30-100); cholesterol:hdl ratio screen 3.64
[2025-07-12 14:56] LABS: Color, Urine Yellow (Yellow); Glucose, Dipstick Normal (Normal); Ketone-Dipstick Negative (Negative); Leukocyte Esterase-Dipstick 500 /ul (Negative); Nitrite-Dipstick Negative (Negative); Occult Blood-Urine 10 /ul (Negative); Protein-Dipstick Negative (Negative); Specific Gravity, Urine 1.015 (1.002-1.030); Urine Bilirubin Dipstick Negative (Negative)
[2025-07-12 15:01] LABS: Squamous Epithelial Cells - UA 0-5 SEEN /hpf (5-10)
== END | disposition home or self-care (01) ==
LOC: MFPLAB 10:48
PROVIDERS: PCP Family Medicine; Visit Provider Family Medicine
DX: R73.02 Impaired glucose tolerance (oral) (principal); I10 Essential (primary) hypertension; Z86.73 Personal history of transient ischemic attack (TIA), and cerebral infarction without residual deficits; M85.80 Other specified disorders of bone density and structure, unspecified site
CPT/HCPCS: 36415; 80053; 80061; 81001; 82306; 83036; 85025

== ENCOUNTER 2025-08-21 16:30 | Outpatient (RCR) | payer MEDICARE, OTHER, SELFPAY ==
--- NOTE | 2025-06-10 17:52 | HP.PTEVAL ---
Patient's Visit Information Visit Information Visit Information: EDWIN ERAZO is a 85 year old F referred to Physical Therapy by DIOMEDES Leon with a diagnosis of B LE pain. Date of Evaluation: 06/10/25 Physical Therapist: See Heck DPT Visit Plan Frequency: 2x /Week Duration: 4 Weeks Plan: Progress to more standing BLE and core strength next. Subjective Subjective: Pt. is here today for her initial evaluation with B LE pain. Pt. reports having increased pain in her thighs after prolonged standing. Pt. has to end up sitting due to her pain. Pt/ denies LBP, but reports symptoms only occur after prolonged standing. Pain alleviates when sitting. Denies N/T, no leg weakness. Pt. has no recent falls. Pt. sleeps well without issues. He main complaint is with working in her kitchen. After an hour or so she gets intense pain in her anterior legs causing her to sit down. Pt. reports no pain at rest. Pt. is hopeful to reduce symptoms in order to get back to all household activities without limitations. Pain B anterior thighs: Pain Intensity (Out of 10): 0 Pain Intensity Range: 0 and 3 Lumbar spine: Pain Intensity (Out of 10): 0 Pain Intensity Range: 0 and 1 Objective Objective: POSTURE: Pt. has slight flexed posture in stance, wide ASHLEY. PALPATION: Pt. pain with spring testing of lumbar spine. No pain with palpation of BLEs. NEURO: normal throughout. ROM: LUMBAR SPINE: flexion min/nil loss NE, ext mod loss NE, SB min loss bilat NE, rotation min loss bilat mild increase NW. Pt. has tightness in B HS and IT bands. MMT: Pt. has general 4/5 strength throughout BLEs. Core strength: poor. GAIT: Pt. ambulates without AD. Pt. has decreased step length and decreased tempo with gait. STAIRS: Pt. has normal reciprocal pattern noted. Special Tests L/S Slump test left side: Negative L/S Slump test right side: Negative L/S Left Straight Leg Raise: Negative L/S Right Straight Leg Raise: Negative Lumbar Standing: Flexion - Mechanical Response: No effect Lumbar Standing: Flexion - Symptoms During Testing: No effect Lumbar Standing: Flexion - Symptoms After Testing: No effect Lumbar Standing: Extension - Mechanical Response: No effect Lumbar Standing: Extension - Symptoms During Testing: Increases Lumbar Standing: Extension - Symptoms After Testing: No worse Lumbar Standing: Right Side Glides - Mechanical Response: No effect Lumbar Standing: Right Side [place] - Symptoms During Testing: No effect Lumbar Standing: Right Side [place] - Symptoms After Testing: No effect Lumbar Standing: Left Side [place] - Mechanical Response: No effect Lumbar Standing: Left Side [place] - Symptoms During Testing: No effect Lumbar Standing: Left Side [place] - Symptoms After Testing: No effect Lumbar Lying: Flexion - Mechanical Response: No effect Lumbar Lying: Flexion - Symptoms During Testing: Decreases Lumbar Lying: Flexion - Symptoms After Testing: No better Lumbar Lying: Extension - Mechanical Response: No effect Lumbar Lying: Extension - Symptoms During Testing: Increases Lumbar Lying: Extension - Symptoms After Testing: No worse Balance/Special Test Scores Lower Extremity Functional Score: 40 Goals Goal 1:: LTG: pt. to have increased BLE strength by 10# allowing for increase in functional mobility. Goal Time Frame: 4-6 Weeks Goal 2:: LTG: Pt. to be able to complete all household work without increase in symptoms. Goal Time Frame: 4-6 Weeks Goal 3:: LTG: Pt. to reports no BLE pain with all prolonged standing. Goal Time Frame: 4-6 Weeks Rehabilitation Potential Physical Therapy Diagnosis: Pt. has signs and symptoms consistent with B LE pain. Rehabilitation Potential: Excellent Anticipated Interventions Patient/Client Instruction: Educate patient on: Condition, Plan of Care, Risk Factors and Benefits of Fitness Program For the Purpose of:: To improve decision making, To facilitate caregiver knowledge, To improve self management, To prevent re-injury and To improve ability to perform tasks related to life management Therapeutic Exercise to Include: Strength training, Power training, Postural training, Flexibilty training, Gait and locomotor training, Passive ROM and Active ROM For the Purpose of:: To decrease pain, To increase ROM, To improve nutrient delivery to tissue, To increase oxygenation perfusion, To improve muscle performance and motor function, To improve ability to perform ADL's, To increase tolerance to activity/condition/position, To improve gait and locomotor functions, To improve health of tissue, To decrease soft tissue restriction and To increase flexibility/ROM Text: Thank you for the opportunity to evaluate your patient. For Medicare and Medicare HMO plans, please review the plan of care and approve it. It will need to be FAXED BACK to us at [phone] for Medicare purposes. For Medicare only, by signing this I certify the plan of care. Please let me know if there are questions or concerns regarding this plan of care. Physician Signature: Date:
--- NOTE | 2025-08-26 12:29 | HP.PTDCSUM_ITS ---
Discharge Summary D/C summary: It has been my pleasure to treat EDWIN ERAZO referred by LUIS Leno C, with the diagnosis of B LE pain for a total of 17 visit(s). Discharge Date: 08/21/25 Please see the following information for a summary of their discharge status. Subjective Subjective: pt. reports overall doing much better. PT. reports no pain currently. Pt. pleased. Pain B anterior thighs: Pain Intensity (Out of 10): 0 Lumbar spine: Pain Intensity (Out of 10): 0 Overall Improvement % Improvement: 20 Objective Objective/Function: Pt. is overall doing much better. Pt. reports being fairly compliant with her exercises. She still gets some pain with prolonged standing. She is at the point where she is I with her HEP. I have given her print outs to continue working on. Pt. has good ROM of lumbar spine without increase in symptoms. She is to continue with working on core and BLE strength. Goals Goal 1:: LTG: pt. to have increased BLE strength by 10# allowing for increase in functional mobility. Goal Progress: Goal Met Goal 2:: LTG: Pt. to be able to complete all household work without increase in symptoms. Goal Progress: Goal Met Goal 3:: LTG: Pt. to reports no BLE pain with all prolonged standing. Goal Progress: Progressing Plan Plan: Pt. to be DC from PT at this point in time. D/C Information d/c sentence: If there are questions or concerns regarding this patient's physical therapy, please feel free to call me at [phone]. Thank you for the referral of this patient. Sincerely, See Heck, DPT Balance/Gait/Functional tests Balance/Special Test Scores Lower Extremity Functional Score: 56 Improvement % Improvement: 20
== END 2025-08-21 19:00 | disposition home or self-care (01) ==
LOC: PT 16:30
PROVIDERS: PCP Family Medicine
DX: M79.604 Pain in right leg (principal); M79.605 Pain in left leg
CPT/HCPCS: 97110; 97161; 97530